=== PATIENT | female | born 1930 | race Caucasian/White ===

== ENCOUNTER 2016-12-05 18:35 | Inpatient (IN) | payer MEDICARE, MEDICAID ==
[2016-12-05 18:35] VITALS: BMI 24.4
[2016-12-05] MEDS ORDERED: Sodium Chloride 0.9% 500 ML IV ONE ×4 (19:23→20:11)
[2016-12-05 19:31] LABS: BASO % 0.4 % (0.0-2.0); EOS # 0.1 K/uL (0.0-0.7); EOS % 1.2 % (0.0-4.0); LYMPH # 1.5 K/uL (1.0-4.3); LYMPH % 22.2 % (20.0-40.0); MEAN CELL VOLUME 88.4 fL (81.0-99.0); MEAN CORPUSCULAR HEMOGLOBIN 28.3 pg (27.0-31.0); MEAN CORPUSCULAR HGB CONC 32.1 g/dL (33.0-37.0); MEAN PLATELET VOLUME 8.9 fL (7.2-11.7); MONO # 0.7 K/uL (0.0-0.8); MONO % 9.5 % (0.0-10.0); RED CELL DISTRIBUTION WIDTH 14.6 % (11.5-14.5)
--- NOTE | 2016-12-05 19:34 | C.PDOC ---
Time Seen by Provider: 12/05/16 19:11 Chief Complaint (Nursing): Abdominal Pain History Per: Patient, Family Onset/Duration Of Symptoms: Days (1) Current Symptoms Are (Timing): Still Present Severity: Moderate Location Of Pain/Discomfort: Epigastric Quality Of Discomfort: Unable To Describe, Burning Associated Symptoms: Nausea, Vomiting Exacerbating Factors: Food Alleviating Factors: None Last Bowel Movement: Today Additional History Per: Prior Records Past Medical History Reviewed: Historical Data, Nursing Documentation, Vital Signs Vital Signs: Last Vital Signs Temp 98.1 F 12/05/16 18:44 Pulse 79 12/05/16 20:31 Resp 18 12/05/16 20:31 BP 106/41 L 12/05/16 20:31 Pulse Ox 95 12/05/16 20:49 - Medical History PMH: Anxiety, Arthritis (L KNEE; L WRIST), Asthma, Back Problems (HX CHRONIC BACK PAIN), CAD, COPD, Diabetes, Fractures (left wrist), Gastritis, HTN, Hypercholesterolemia, Osteoporosis, Rheumatoid Arthritis Surgical History: Coronary Stent - [facility] Procedures APPLICATION OF SPLINT (06/18/14) FLUOROSCOPY OF LEFT HEART USING LOW OSMOLAR CONTRAST (02/05/16) GAIT TRAINING/AMBULAT TREATMENT USING ASSIST EQUIPMENT (11/08/15) INTRODUCE ANTI-INFLAM IN PERIPH NRV, PLEXI, PERC (11/08/15) INTRODUCE REGIONAL ANESTH IN PERIPH NRV, PLEXI, PERC (11/08/15) MEASURE OF CARDIAC SAMPL & PRESSURE, L HEART, PERC APPROACH (02/05/16) NEBULIZER THERAPY (06/16/14) REPAIR LEFT UPPER ARM TENDON, OPEN APPROACH (11/08/15) REPAIR OF HAMMER TOE (07/17/13) REPOSITION LEFT HUMERAL SHAFT WITH INT FIX, OPEN APPROACH (11/08/15) TRANSFUSE NONAUT RED BLOOD CELLS IN PERIPH VEIN, PERC (11/08/15) Family History: States: Unknown Family Hx - Social History Hx Tobacco Use: No Hx Alcohol Use: No Hx Substance Use: No - Immunization History Hx Tetanus Toxoid Vaccination: Yes (3 mos. ago) Hx Influenza Vaccination: No Hx Pneumococcal Vaccination: No Review Of Systems Except As Marked, All Systems Reviewed And Found Negative. Constitutional: Negative for: Fever, Weakness Cardiovascular: Negative for: Chest Pain Respiratory: Negative for: Shortness of Breath Gastrointestinal: Positive for: Nausea, Vomiting, Abdominal Pain. Negative for : Diarrhea, Melena, Hematochezia, Hematemesis Genitourinary: Negative for: Dysuria Musculoskeletal: Positive for: Back Pain (low). Negative for: Neck Pain, Leg Pain Skin: Negative for: Rash Neurological: Negative for: Weakness, Numbness, Seizures, Altered Mental Status Physical Exam - Physical Exam Appears: Non-toxic, No Acute Distress Skin: Normal Color, Warm, Dry, No Rash Head: Atraumatic, Normacephalic Eye(s): bilateral: PERRL, EOMI Neck: Normal ROM, Supple Cardiovascular: Rhythm Regular Respiratory: Normal Breath Sounds, No Accessory Muscle Use Gastrointestinal/Abdominal: Soft, Tenderness (mild epigastric), No Guarding, No Rebound Rectal: Heme Positive (Brown stool) Back: No CVA Tenderness Extremity: Normal ROM, No Pedal Edema, No Calf Tenderness Neurological/Psych: Oriented x3, Normal Motor, Normal Sensation ED Course And Treatment - Laboratory Results Result Diagrams: 12/05/16 19:29 12/05/16 20:52 Lab Interpretation: Abnormal Interpretation Of Abnormal: Elevated BUN/Cr with hyperkalemia. Anemia. UTI. ECG: Interpreted By Me, Viewed By Me ECG Rhythm: Sinus Rhythm, L BBB, Nonspecific Changes ECG Interpretation: No Changes From Prior Rate From EC O2 Sat by Pulse Oximetry: 95 Pulse Ox Interpretation: Normal - Radiology CXR: Interpreted by Me, Viewed By Me CXR Interpretation: Yes: No Acute Disease Progress - Interventions Interventions:: Observation, Intravenous fluid - Medications Administered Oral: Other (Kayexelate.) Intravenous: Antiemetic, Other (PPI) - Data Reviewed Data Reviewed: Lab, Diagnostic imaging, EKG, Old records - Patient Status Patient status: Partially improved - Critical Care Citical Care: Excluding Proc Time Critical Care Time: 45 minutes - Continuity of Care Discussed patient case with:: Patient, Family-HIPPA compliant, ED Nurse, On- call PMD-pt unassigned - Patient Plan Patient Plan: Admission, Telemetry Disposition Discussed With : Damon Kearney Comment: He accepted pt on hospitalist service. Doctor Will See Patient In The: Hospital Counseled Patient/Family Regarding: Studies Performed, Diagnosis - Disposition Disposition: HOSPITALIZED Disposition Time: 21:32 Condition: SERIOUS - Clinical Impression Clinical Impression: Hyperkalemia, UTI (urinary tract infection), Worsening renal function, Anemia
[2016-12-05 19:40] LABS: CHLORIDE 97 mmol/L (98-107); SODIUM 137 mmol/L (132-148)
[2016-12-05 19:42] LABS: GFR AFRICAN-AMERICAN 32
[2016-12-05 19:43] LABS: ALB/GLOB RATIO 1.5 (1.0-2.1); ALKALINE PHOSPHATASE 52 U/L (38-126); ALT/SGPT 13 U/L (9-52); AST/SGOT 26 U/L (14-36); BILIRUBIN,TOTAL 0.4 mg/dL (0.2-1.3); BLOOD UREA NITROGEN 72 mg/dL (7-17); CARBON DIOXIDE 30 mmol/L (22-30); GLUCOSE,RANDOM 192 mg/dL (65-105); POTASSIUM 6.3 mmol/L (3.6-5.2); TOTAL PROTEIN 6.8 g/dL (6.3-8.3)
[2016-12-05 21:10] LABS: CALCIUM 8.1 mg/dl (8.6-10.4)
[2016-12-05 21:11] LABS: RBC URINE < 1 /hpf (0-3); URINE BACTERIA MOD (<OCC); URINE BILIRUBIN NEGATIVE (NEGATIVE); URINE BLOOD NEGATIVE (NEGATIVE); URINE COLOR Yellow (YELLOW); URINE GLUCOSE (UA) NORMAL (Normal); URINE KETONE NEGATIVE (NEGATIVE); URINE LEUKOCYTE ESTERASE 1+ Leu/uL (Negative); URINE PROTEIN NEGATIVE (NEGATIVE); URINE UROBILINOGEN NORMAL mg/dL (0.2-1.0); WBC URINE 38 /hpf (0-5)
[2016-12-05 21:14] LABS: POTASSIUM 6.4 mmol/L (3.6-5.2)
[2016-12-05] MEDS ORDERED: cefTRIAXone IV 1 gm in Dextros 50 ML IVPB ONE ×2 (21:15→22:43)
[2016-12-05] MEDS ORDERED: Dextrose 50% SYRINGE Inj (50 ml) IVP STA (21:16)
[2016-12-05] MEDS ORDERED: (Novolin R) Insulin Human Regular 100 units/ml vial IV STA (21:16)
[2016-12-05] MEDS ORDERED: Sod Polystyrene Sulf 15 gm/60 ml Oral Susp PO STA (21:17)
[2016-12-05] MEDS ORDERED: Calcium Gluconate 4.65 mEq/10 ml Inj IVP STA (21:17)
[2016-12-05] MEDS ORDERED: Calcium Gluconate 4.65 mEq/10 ml Inj ONE (21:25)
[2016-12-05] MEDS ORDERED: Sod Polystyrene Sulf 15 gm/60 ml Oral Susp ONE (21:25)
[2016-12-05] MEDS ORDERED: (Novolin R) Insulin Human Regular 100 units/ml vial ONE (21:25)
[2016-12-05] MEDS ORDERED: Dextrose 50% SYRINGE Inj (50 ml) ONE (21:25)
--- NOTE | 2016-12-05 21:41 | CP.PCM.HP ---
<Hieu Arce - Last Filed: 12/06/16 08:28> History of Present Illness - History of Present Illness History of Present Illness: CC: "abdominal pain with nausea/vomiting x 1 day" HPI: 86yo Female with PMHx abdominal hernia, gastritis, anxiety, asthma, COPD, DM, CAD, HTN - presents c/o abdominal pain since earlier this morning with two episodes of associated nausea and vomiting. Due to the pain, she has not eaten in over 1 day. She admits the abdominal pain came on suddenly, has been constant and dull throughout the day, and is rated at 5/10. She attributes this to her gastritis and history of constipation. She describes the vomit as watery/ brown. Patient admits that she did not change her diet or her routine. She has been having daily hard bowel movements, attributed to her history of constipation, and denies blood in the stool or toilet. Patient also complains of chronic musculoskeletal issues, most recently lower back pain for the past week. Patient is a poor historian, and could not give clear answers to questions despite use of translation (patient is also hard of hearing). Denies f /c, weakness, chest pain, diarrhea, dysuria. Note: per family, she missed her [address] Cao for Urinary retention. Daughter Kira at . Patient previously admitted 10/15/16 for AMS. Urine did not show signs of infection. She was able to urinate but was retaining. On two different times bladder scan showed over 500cc of urine so lema cath was placed. She was dischraged with the lema and was to follow-up in Dr. Navneet Cao's [place] office. PMD: Dr. Gomez PMH: anxiety, asthma, COPD, DM, CAD, HTN, gastritis Medications: patient is uncertain of medications. Per previous record: ASA 81 mg po daily, Plavix 75 mg po daily, Crestor 5 mg po daily, Pepcid 20 mg po daily , Advair FHx: mother- asthma, heart disease, at age 92 PSHx: fibroma removal abdominal surgery. Cardiac cath 02/2016 SHx: smoked 1ppd x 50 yrs, quit 20 yrs ago; social drinker in the past, denies current use. denies illicit drug use. Lives alone. Has homemaker. Present on Admission - Present on Admission Any Indicators Present on Admission: No Review of Systems - Hematologic/Lymphatic Additional comments: - Constitutional Constitutional: absent: Chills, Fever - EENT Ears: Decreased Hearing (hears better from R ear) - Cardiovascular Cardiovascular: absent: Chest Pain, Dyspnea - Respiratory Respiratory: absent: Cough, Chest Congestion. - Gastrointestinal Gastrointestinal: Abdominal Pain, Constipation, Nausea, Vomiting Additional comments: -hernia - Genitourinary Genitourinary: Urinary Incontinence (history of incontinence, no current complaints). absent: Dysuria, Hematuria, Urinary Frequency - Musculoskeletal Musculoskeletal: Arthralgias, Muscle Cramps - Integumentary Integumentary: absent: Changing Lesions, New Lesions - Neurological Neurological: absent: Dizziness - Psychiatric Psychiatric: absent: depression, anxiety Past Patient History - Infectious Disease Hx of Infectious Diseases: None - Tetanus Immunizations Tetanus Immunization: Unknown - Past Medical History & Family History Past Medical History?: Yes - Past Social History Smoking Status: Never Smoked - CARDIAC Hx Hypercholesterolemia: Yes Hx Hypertension: Yes - PULMONARY Hx Asthma: Yes Hx Chronic Obstructive Pulmonary Disease (COPD): Yes - NEUROLOGICAL Hx Seizures: No - HEENT Hx HEENT Problems: Yes Hx Cataracts: Yes (right eye) Hx Glaucoma: Yes (left eye) - RENAL Hx Chronic Kidney Disease: No - HEMATOLOGICAL/ONCOLOGICAL Hx Human Immunodeficiency Virus (HIV): No - INTEGUMENTARY Hx Dermatological Problems: No - MUSCULOSKELETAL/RHEUMATOLOGICAL Hx Arthritis: Yes (L KNEE; L WRIST) Hx Fractures: Yes (left wrist) Hx Osteoporosis: Yes Hx Rheumatoid Arthritis: Yes - GASTROINTESTINAL Hx Gastritis: Yes - GENITOURINARY/GYNECOLOGICAL Hx Sexually Transmitted Disorders: No - PSYCHIATRIC Hx Anxiety: Yes Hx Substance Use: No - SURGICAL HISTORY Hx Coronary Stent: Yes - ANESTHESIA Hx Anesthesia: Yes Hx Anesthesia Reactions: No Hx Malignant Hyperthermia: No Meds Allergies/Adverse Reactions: Allergies Allergy/AdvReac Type Severity Reaction Status Date / Time No Known Allergies Allergy Verified 12/05/16 18:41 Physical Exam - Additional Findings Additional findings: - Constitutional Appears: Non-toxic, No Acute Distress - Head Exam Head Exam: ATRAUMATIC, NORMAL INSPECTION - Eye Exam Eye Exam: EOMI, Normal appearance, PERRL Pupil Exam: NORMAL ACCOMODATION - ENT Exam ENT Exam: Mucous Membranes Moist - Neck Exam Neck Exam: Normal Inspection - Respiratory Exam Respiratory Exam: Clear to Ausculation Bilateral, NORMAL BREATHING PATTERN. absent: Accessory Muscle Use, Respiratory Distress - Cardiovascular Exam Cardiovascular Exam: REGULAR RHYTHM, +S1, +S2 - GI/Abdominal Exam GI & Abdominal Exam: Soft, Normal Bowel Sounds, Distended (mild), Tenderness ( mild, at site of R abd hernia) absent: Firm, Guarding -no supra-pubic tenderness - Extremities Exam Extremities Exam: Normal Inspection. absent: Calf Tenderness, Pedal Edema - Back Exam Back Exam: NORMAL INSPECTION. absent: CVA tenderness (L), CVA tenderness (R), paraspinal tenderness - Neurological Exam Neurological Exam: Alert, Awake - Psychiatric Exam Psychiatric exam: Normal Affect, Normal Mood - Skin Skin Exam: Dry, Intact, Normal Color, Warm Results - Vital Signs Recent Vital Signs: Last Vital Signs Temp 98.1 F 12/05/16 18:44 Pulse 79 12/05/16 20:31 Resp 18 12/05/16 20:31 BP 106/41 L 12/05/16 20:31 Pulse Ox 95 12/05/16 21:33 - Labs Result Diagrams: 12/06/16 07:08 12/06/16 07:08 Labs: Laboratory Results - last 24 hr 12/05/16 12/05/16 12/05/16 19:29 19:29 19:56 WBC 7.0 RBC 2.60 L Hgb 7.4 L D Hct 23.0 L MCV 88.4 MCH 28.3 MCHC 32.1 L RDW 14.6 H Plt Count 201 MPV 8.9 Neut % (Auto) 66.7 Lymph % (Auto) 22.2 [place] % (Auto) 9.5 Eos % (Auto) 1.2 Baso % (Auto) 0.4 Neut # 4.6 Lymph # 1.5 [place] # 0.7 Eos # 0.1 Baso # 0.0 Sodium 137 Potassium 6.3 H* D Chloride 97 L Carbon Dioxide 30 Anion Gap 16 BUN 72 H Creatinine 1.8 H Est GFR ( Amer) 32 Est GFR (Non-Af Amer) 27 Random Glucose 192 H Calcium 9.0 Total Bilirubin 0.4 AST 26 ALT 13 Alkaline Phosphatase 52 Troponin I < 0.0120 Total Protein 6.8 Albumin 4.1 Globulin 2.7 Albumin/Globulin Ratio 1.5 Lipase 51 Urine Color Urine Clarity Urine pH Ur Specific [place] Urine Protein Urine Glucose (UA) Urine Ketones Urine Blood Urine Nitrate Urine Bilirubin Urine Urobilinogen Ur Leukocyte Esterase Urine WBC (Auto) Urine RBC (Auto) Ur Squamous Epith Cells Urine Bacteria Stool Occult Blood Positive H 12/05/16 12/05/16 20:52 21:14 WBC RBC Hgb Hct MCV MCH MCHC RDW Plt Count MPV Neut % (Auto) Lymph % (Auto) [place] % (Auto) Eos % (Auto) Baso % (Auto) Neut # Lymph # [place] # Eos # Baso # Sodium 134 Potassium 6.4 H* Chloride 102 Carbon Dioxide 25 Anion Gap 13 BUN 65 H Creatinine 1.8 H Est GFR ( Amer) 32 Est GFR (Non-Af Amer) 27 Random Glucose 200 H Calcium 8.1 L Total Bilirubin AST ALT Alkaline Phosphatase Troponin I Total Protein Albumin Globulin Albumin/Globulin Ratio Lipase Urine Color Yellow Urine Clarity Hazy Urine pH 5.0 Ur Specific [place] 1.008 Urine Protein Negative Urine Glucose (UA) Normal Urine Ketones Negative Urine Blood Negative Urine Nitrate Negative Urine Bilirubin Negative Urine Urobilinogen Normal Ur Leukocyte Esterase 1+ H Urine WBC (Auto) 38 H Urine RBC (Auto) < 1 Ur Squamous Epith Cells < 1 Urine Bacteria Mod H Stool Occult Blood Assessment & Plan - Assessment and Plan (Free Text) Assessment: Anemia -Hgb 7.4; Hct 23 -Stool occult (+) in patient with Hx of constipation. -Type and cross 2units -Transfuse 1 unit PRBC at 8am -GI Consult, Dr. Walker, f/u recs -f/u Fe, TIBC, %sat, ferritin, B12, folate Dehydration -BUN/CR 65/1.8 (baseline 1.0) -previously seen by Urology, Dr. Navneet Cao. Was to f/u with him after 10/06/15 admission. Never followed up per daughter. -NS 0.9 at 75cc/hr Acute Kidney Injury -likely secondary to dehydration -BUN/CR 65/1.8 (baseline 1.0) -NS at 80 cc/hour -Monitor Hyperkalemia -K 6.4 on admission -pt received calcium gluconate, kayexelate, Novolin R in ED. Abdominal Distention - f/u CT Abd/Pelv PO contrast. - also observe CT for urinary retention Asymptomatic UTI -UA(+) Leuk est 1+, WBC 38. -f/u Urine culture -f/u CT abdomen/pelvis for signs of urinary retention. -Currently hold antibiotics. -patient with history of urinary retention -> F/u Bladder Scan / post void residual. Diabetes Mellitus -Glucose 200 on admission -prior: hemoglobin a1c - 8.4 -Insulin Sliding Scale -Accuchecks CAD -HOLD ASA, Plavix, due to anemia/bleed. -Echo 2016 - normal -prior FLP 09/02/16: Cholest 111; LDL 53; HDL 49; Triglyc 39. -Resume Crestor 5mg PO HS Hx HTN -BP 106/41 on admission -Hold home meds. -Monitor Prophylaxis -SCDs -Hold anticoagulation -Pepcid held -f/u PT/OT - Date & Time Date: 12/05/16 Time: 21:35 <Damon Kearney P - Last Filed: 12/11/16 21:54> Results - Vital Signs Recent Vital Signs: Last Vital Signs Temp 98 F 12/11/16 16:00 Pulse 64 12/11/16 16:00 Resp 18 12/11/16 16:00 BP 154/67 H 12/11/16 16:00 Pulse Ox 96 12/11/16 16:00 - Labs Result Diagrams: 12/11/16 07:12 12/11/16 07:12 Labs: Laboratory Results - last 24 hr 12/10/16 12/11/16 12/11/16 21:39 06:38 07:12 WBC 6.3 RBC 3.46 L Hgb 10.0 L Hct 30.4 L MCV 87.9 MCH 28.8 MCHC 32.7 L RDW 14.1 Plt Count 187 MPV 8.9 Neut % (Auto) 49.4 L Lymph % (Auto) 32.0 [place] % (Auto) 11.8 H Eos % (Auto) 5.6 H Baso % (Auto) 1.2 Neut # 3.1 Lymph # 2.0 [place] # 0.7 Eos # 0.4 Baso # 0.1 Sodium Potassium Chloride Carbon Dioxide Anion Gap BUN Creatinine Est GFR ( Amer) Est GFR (Non-Af Amer) POC Glucose (mg/dL) 228 H 191 H Random Glucose Calcium Phosphorus Magnesium Total Bilirubin AST ALT Alkaline Phosphatase Total Protein Albumin Globulin Albumin/Globulin Ratio 12/11/16 12/11/16 12/11/16 07:12 11:26 17:01 WBC RBC Hgb Hct MCV MCH MCHC RDW Plt Count MPV Neut % (Auto) Lymph % (Auto) [place] % (Auto) Eos % (Auto) Baso % (Auto) Neut # Lymph # [place] # Eos # Baso # Sodium 140 Potassium 4.4 Chloride 103 Carbon Dioxide 25 Anion Gap 16 BUN 20 H Creatinine 0.8 Est GFR ( Amer) > 60 Est GFR (Non-Af Amer) > 60 POC Glucose (mg/dL) 224 H 161 H Random Glucose 158 H Calcium 8.4 L Phosphorus 3.0 Magnesium 1.7 Total Bilirubin 0.5 AST 22 ALT 22 Alkaline Phosphatase 49 Total Protein 6.7 Albumin 3.9 Globulin 2.8 Albumin/Globulin Ratio 1.4 12/11/16 21:24 WBC RBC Hgb Hct MCV MCH MCHC RDW Plt Count MPV Neut % (Auto) Lymph % (Auto) [place] % (Auto) Eos % (Auto) Baso % (Auto) Neut # Lymph # [place] # Eos # Baso # Sodium Potassium Chloride Carbon Dioxide Anion Gap BUN Creatinine Est GFR ( Amer) Est GFR (Non-Af Amer) POC Glucose (mg/dL) 170 H Random Glucose Calcium Phosphorus Magnesium Total Bilirubin AST ALT Alkaline Phosphatase Total Protein Albumin Globulin Albumin/Globulin Ratio Attending/Attestation - Attestation I have personally seen and examined this patient.: Yes I have fully participated in the care of the patient.: Yes I have reviewed all pertinent clinical information: Yes
[2016-12-05] MEDS ORDERED: Iohexol 240 (50 ml) ONE (22:43)
[2016-12-05] MEDS ORDERED: Iohexol 240 (50 ml) PO ONE (22:45)
[2016-12-06] MEDS: Sodium Chloride 0.9% 1,000 ML IV SCH (00:27)
[2016-12-06 07:20] LABS: BASO % 0.6 % (0.0-2.0); EOS # 0.3 K/uL (0.0-0.7); EOS % 4.9 % (0.0-4.0); HEMATOCRIT 20.8 % (34.0-47.0); LYMPH # 1.8 K/uL (1.0-4.3); LYMPH % 34.2 % (20.0-40.0); MEAN CORPUSCULAR HEMOGLOBIN 28.9 pg (27.0-31.0); MEAN CORPUSCULAR HGB CONC 32.5 g/dL (33.0-37.0); MEAN PLATELET VOLUME 9.3 fL (7.2-11.7); MONO # 0.7 K/uL (0.0-0.8); RED CELL DISTRIBUTION WIDTH 14.5 % (11.5-14.5); WHITE BLOOD COUNT 5.3 K/uL (4.8-10.8)
[2016-12-06 07:35] LABS: POTASSIUM 5.4 mmol/L (3.6-5.2)
[2016-12-06 07:36] LABS: IRON 30 ug/dL (37-170)
[2016-12-06 07:37] LABS: ALB/GLOB RATIO 1.4 (1.0-2.1); BILIRUBIN,TOTAL 0.4 mg/dL (0.2-1.3); PHOSPHOROUS 4.6 mg/dL (2.5-4.5)
[2016-12-06 07:38] LABS: MAGNESIUM 2.5 mg/dL (1.6-2.3)
[2016-12-06] MEDS: (Novolog) Insulin Aspart, Recombinant 100 u/ml 10 ml vial SC SCH ×3 (08:09→21:27)
--- NOTE | 2016-12-06 08:43 | RAD ---
HISTORY: Epigastric pain COMPARISON: 10/17/2016. FINDINGS: LUNGS: The lungs are well inflated and clear. PLEURA: No significant pleural effusion identified, no pneumothorax apparent. CARDIOVASCULAR: There is mild cardiomegaly. OSSEOUS STRUCTURES: No significant abnormalities. VISUALIZED UPPER ABDOMEN: Normal. OTHER FINDINGS: None. IMPRESSION: No active pulmonary disease. Mild cardiomegaly.
[2016-12-06] MEDS ORDERED: Iohexol 240 (50 ml) PO ONE (09:45)
--- NOTE | 2016-12-06 09:57 | CP.PCM.PN ---
Subjective - Date & Time of Evaluation Date of Evaluation: 12/06/16 Time of Evaluation: 09:35 - Subjective Subjective: Hospitalist Progress Note (Patient was seen and examined at 9:35 AM 12/06/16 [id number] ) 86 year old female who was admitted for evaluation of abdominal pain associated with nausea/vomiting. She was found to be anemia and in acute renal failure and admitted for further evaluation and treatment. ROS: NO more episodes of nausea/vomiting since she has been here NO bowel movement since yesterday (which was nonbloody/nonblack) Urinating without difficulty this morning: no burning/pain B/L LQ Abdominal Fullness and Epigastric Discomfort that comes and goes NO Other complaints upon FULL ROS EXAM: HEENT: NCA, EOMI, PERRLA, NO cervical/submandibular/supraclavicular lymphadenopathy, NO pharyngeal erythema/exudate, Oral Mucosa and Nasal Turbinates are moist, NO thyromegaly GI: Abdominal Distention, Soft, Liver and Spleen could not be adequately palpated, NO guarding/rebound tenderness, NO epigastric pain upon palpation, Increased Pressure in the B/L LQ, Midline surgical scar with palpable lump inferior aspect and to the right Cardio: Systolic Murmur Right Second Intercostal Space Respiratory: CTA B/L, NO R/R/W Ext: NO edema, Pulses are strong and equal Neuro: CN II through XII are grossly intact Assessment and Plan: 1). Anemia Likely Secondary to GI Bleed Stool Occult was POSITIVE F/U recommendations by GI Dr. Walker F/U Iron Studies At the time of my exam the PRBC unit was still pending transfusion and I spoke with Nurse Curtis who will be starting it after the performance of the CT Abdomen /Pelvis which is also still pending 2). Acute Renal Failure Could this be secondary to dehydration (patient was not eating/drinking much 1 day prior to presentation secondary to nausea/vomiting) ? Patient had normal BUN/Cr in October 2016 BUN/Cr 72/1.8 on admission NS at 80 ml/hr HOLD Lasix F/U CT Abdomen/Pelvis F/U Consult Nephrology Dr. Ford 3). Hyperkalemia K was 6.4 on admission She was given Calcium Gluconate, Kayexalate, Novolin R in the ER K is now 5.4 and will await patient to have bowel movement 4). Abdominal Distention F/U CT Abdomen/Pelvis 5). UTI She has a history of Bladder Rentention but is urinating fine on her own presently. Please note she was [facility] on on last admission 10/15/16 with Brown Catheter secondary to high bladder urine residuals. UA showed LE + and WBC + F/U Urine Culture Flomax 0.4 mg PO 1x/day 6). DM 1 HgB A1C 8.1 on prior admission 10/15/16 RISS Accuchecks 7). Hx CAD HOLD ASA and Plavix due to the Anemia Echo 2016 was essentially normal Crestor 5 mg PO QHS 8). Hx HTN Blood Pressure eis 106/41 Holding Hydralazine, Norvasc, Valsartan, and Lasix 9). Prophylactic Measure SCDs: NO anticoagulation PT/OT Atilio Jean D.O. Objective - Vital Signs/Intake and Output Vital Signs (last 24 hours): Temp Pulse Resp BP Pulse Ox 97.8 F 65 20 126/49 L 95 12/05/16 23:15 12/06/16 04:26 12/05/16 23:15 12/05/16 23:15 12/05/16 23:15 Intake and Output: 12/06/16 12/06/16 06:59 18:59 Intake Total 725 Output Total 250 Balance 475 - Medications Medications: Current Medications Sodium Chloride (Sodium Chloride 0.9%) 1,000 mls @ 75 mls/hr IV .[id number] [facility] Last Admin: 12/06/16 00:27 Dose: 75 mls/hr Insulin Aspart (Novolog) 0 unit SC ACHS [facility] PRN Reason: Protocol Last Admin: 12/06/16 08:09 Dose: 1 unit Rosuvastatin Calcium (Crestor) 5 mg PO HS [facility]AN - Labs Labs: 12/06/16 07:08 12/06/16 07:08
--- NOTE | 2016-12-06 10:20 | CP.PCM.CON ---
History of Present Illness - History of Present Illness History of Present Illness: pt seen and examined, full consult to follow#[id number] 1. marleni, picture c/w pre renal 2. hyperkalemia 3. anemia r/o GI bleed check urine lytes, osm, cr check fe,tibc, ferritin c/w ivf agree with kayexalate f/w with GI to r/o UGI bleed consider transfusion as needed Past Patient History - Infectious Disease Hx of Infectious Diseases: None - Tetanus Immunizations Tetanus Immunization: Unknown - Past Medical History & Family History Past Medical History?: Yes - Past Social History Smoking Status: Never Smoked - CARDIAC Hx Hypercholesterolemia: Yes Hx Hypertension: Yes - PULMONARY Hx Asthma: Yes Hx Chronic Obstructive Pulmonary Disease (COPD): Yes - NEUROLOGICAL Hx Seizures: No - HEENT Hx HEENT Problems: Yes Hx Cataracts: Yes (right eye) Hx Glaucoma: Yes (left eye) - RENAL Hx Chronic Kidney Disease: No - HEMATOLOGICAL/ONCOLOGICAL Hx Human Immunodeficiency Virus (HIV): No - INTEGUMENTARY Hx Dermatological Problems: No - MUSCULOSKELETAL/RHEUMATOLOGICAL Hx Arthritis: Yes (L KNEE; L WRIST) Hx Fractures: Yes (left wrist) Hx Osteoporosis: Yes Hx Rheumatoid Arthritis: Yes - GASTROINTESTINAL Hx Gastritis: Yes - GENITOURINARY/GYNECOLOGICAL Hx Sexually Transmitted Disorders: No - PSYCHIATRIC Hx Anxiety: Yes Hx Substance Use: No - SURGICAL HISTORY Hx Coronary Stent: Yes - ANESTHESIA Hx Anesthesia: Yes Hx Anesthesia Reactions: No Hx Malignant Hyperthermia: No Meds Allergies/Adverse Reactions: Allergies Allergy/AdvReac Type Severity Reaction Status Date / Time No Known Allergies Allergy Verified 12/05/16 18:41 - Medications Medications: Current Medications Sodium Chloride (Sodium Chloride 0.9%) 1,000 mls @ 75 mls/hr IV .[id number] [facility] Last Admin: 12/06/16 00:27 Dose: 75 mls/hr Insulin Aspart (Novolog) 0 unit SC ACHS [facility] PRN Reason: Protocol Last Admin: 12/06/16 08:09 Dose: 1 unit Rosuvastatin Calcium (Crestor) 5 mg PO HS [facility] Results - Vital Signs Recent Vital Signs: Last Vital Signs Temp 97.8 F 12/05/16 23:15 Pulse 65 12/06/16 04:26 Resp 20 12/05/16 23:15 BP 126/49 L 12/05/16 23:15 Pulse Ox 95 12/05/16 23:15 - Labs Result Diagrams: 12/06/16 07:08 12/06/16 07:08 Labs: Laboratory Results - last 24 hr 12/06/16 12/06/16 12/06/16 06:28 07:08 07:08 WBC 5.3 RBC 2.34 L Hgb 6.8 L Hct 20.8 L MCV 89.0 MCH 28.9 MCHC 32.5 L RDW 14.5 Plt Count 178 MPV 9.3 Neut % (Auto) 46.3 L Lymph % (Auto) 34.2 [place] % (Auto) 14.0 H Eos % (Auto) 4.9 H Baso % (Auto) 0.6 Neut # 2.4 Lymph # 1.8 [place] # 0.7 Eos # 0.3 Baso # 0.0 Sodium 138 Potassium 5.4 H Chloride 103 Carbon Dioxide 27 Anion Gap 13 BUN 58 H Creatinine 1.7 H Est GFR ( Amer) 34 Est GFR (Non-Af Amer) 28 POC Glucose (mg/dL) 169 H Random Glucose 146 H Calcium 8.0 L Phosphorus 4.6 H Magnesium 2.5 H Iron TIBC % Saturation Ferritin 9.0 Total Bilirubin 0.4 AST 27 ALT 21 Alkaline Phosphatase 44 Total Protein 6.0 L Albumin 3.4 L Globulin 2.5 Albumin/Globulin Ratio 1.4 12/06/16 07:08 WBC RBC Hgb Hct MCV MCH MCHC RDW Plt Count MPV Neut % (Auto) Lymph % (Auto) [place] % (Auto) Eos % (Auto) Baso % (Auto) Neut # Lymph # [place] # Eos # Baso # Sodium Potassium Chloride Carbon Dioxide Anion Gap BUN Creatinine Est GFR ( Amer) Est GFR (Non-Af Amer) POC Glucose (mg/dL) Random Glucose Calcium Phosphorus Magnesium Iron 30 L TIBC 328 % Saturation 9 L Ferritin Total Bilirubin AST ALT Alkaline Phosphatase Total Protein Albumin Globulin Albumin/Globulin Ratio
--- NOTE | 2016-12-06 11:08 | CARD ---
APPROVED REPORT EKG Measurement Heart [id number] <Conclusion> Sinus rhythm with premature atrial complexes Left bundle branch block Abnormal ECG
--- NOTE | 2016-12-06 13:30 | CT ---
PROCEDURE: CT Abdomen and Pelvis with contrast HISTORY: ABDOMINAL DISTENTION COMPARISON: Comparison is made to the previous study dated 11/16/2016 TECHNIQUE: Axial and reformatted coronal and sagittal CT images of the abdomen and pelvis were obtained after oral contrast administration. No IV contrast was given Radiation dose: Total exam DLP = 670.08 mGy-cm. This CT exam was performed using one or more of the following dose reduction techniques: Automated exposure control, adjustment of the mA and/or kV according to patient size, and/or use of iterative reconstruction technique. FINDINGS: LOWER THORAX: Emphysematous changes are seen at the lung bases. LIVER: No significant interval change since the previous exam. GALLBLADDER AND BILE DUCTS: Abscess post cholecystectomy. PANCREAS: No significant interval change since the previous study. Small size pancreas. SPLEEN: Unremarkable. ADRENALS: Unremarkable. No mass. KIDNEYS AND URETERS: Again seen cystic lesions more prominent in the left kidney. There is complex cyst versus less likely small mass protruding from the midpole of the left kidney measures 19 millimeter. VASCULATURE: Unremarkable. No aortic aneurysm. BOWEL: Unremarkable. No obstruction. No gross mural thickening. Mild constipation is noted. Colonic diverticulosis are seen without evidence of diverticulitis. APPENDIX: Normal appendix. PERITONEUM: Unremarkable. No free fluid. No free air. LYMPH NODES: Unremarkable. No enlarged lymph nodes. BLADDER: Unremarkable. REPRODUCTIVE: No significant interval change in the pelvis since the previous exam. BONES: No acute fracture. OTHER FINDINGS: Again seen is small fat containing midline ventral hernia at the lower anterior abdominal wall. IMPRESSION: No evidence of bowel obstruction. Complex cyst versus less likely mass partially exophytic from the left kidney measures 1.9 centimeter. Further assessment by ultrasound is suggested. Otherwise no significant interval change when compared to the previous exam dated 11/16/2016.
--- NOTE | 2016-12-06 13:39 | CP.PCM.PN ---
Subjective - Date & Time of Evaluation Date of Evaluation: 12/06/16 Time of Evaluation: 07:10 Objective - Vital Signs/Intake and Output Vital Signs (last 24 hours): Temp Pulse Resp BP Pulse Ox 97.8 F 65 20 126/49 L 95 12/05/16 23:15 12/06/16 04:26 12/05/16 23:15 12/05/16 23:15 12/05/16 23:15 Intake and Output: 12/06/16 12/06/16 06:59 18:59 Intake Total 725 Output Total 250 Balance 475 - Medications Medications: Current Medications Sodium Chloride (Sodium Chloride 0.9%) 1,000 mls @ 75 mls/hr IV .[id number] [facility] Last Admin: 12/06/16 00:27 Dose: 75 mls/hr Insulin Aspart (Novolog) 0 unit SC ACHS [facility] PRN Reason: Protocol Last Admin: 12/06/16 08:09 Dose: 1 unit Rosuvastatin Calcium (Crestor) 5 mg PO HS [facility] - Labs Labs: 12/06/16 07:08 12/06/16 07:08
[2016-12-06 14:08] LABS: IRON 39 ug/dL (37-170)
--- NOTE | 2016-12-06 23:44 | CON ---
DATE: 12/06/2016 RENAL CONSULTATION The patient is located in room 664, bed B. REQUESTING PHYSICIAN: Dr. Damon Kearney. REASON FOR RENAL CONSULTATION: Acute renal failure, hyperkalemia for further evaluation. HISTORY OF PRESENT ILLNESS: The patient is an 86-year-old very pleasant elderly female with a past medical history significant for hypertension , diabetes, coronary artery disease, chronic obstructive pulmonary disease, asthma, anxiety, gastritis and abdominal hernia, who presented with chief complaints of abdominal pain associated with nausea, vomiting x 1 day. The patient presented with abdominal pains since earlier on the day of admission yesterday with 2 episodes of nausea, vomiting, decreased p.o. intake for 1 day, and as per the patient, the pain in the abdomen sudden onset, constant throughout the day and rated on a scale of 1-10, 5/10. The patient denies any diarrhea. The patient does complain of constipation and occasional blood in the stool when she has difficulty in moving her bowels. Denies any dysuria or frequency. Denies any swelling of the legs. Denies headache. The patient has complaints of dizziness. PAST MEDICAL HISTORY: Significant for: Hypertension, diabetes, CAD, COPD, asthma, anxiety, and gastritis. PAST SURGICAL HISTORY: Significant for surgery for fibroma. ALLERGIES: No known drug allergies. SOCIAL HISTORY: The patient was an ex-smoker, quit a long time ago, and ex- alcohol use a long time ago. No drug abuse. PERSONAL HISTORY: She is a and she has 11 children and 3 . CURRENT MEDICATIONS: Include as follows: Crestor 5 mg at bedtime, NovoLog for sliding scale, IV fluids normal saline at 75 mL per hour. REVIEW OF SYSTEMS: Significant for dizziness, nausea, vomiting and abdominal pain and significant for anemia. All other review of systems are reviewed and are negative. PHYSICAL EXAMINATION: VITAL SIGNS: As follows: Blood pressure 126/49, pulse 81, respirations 20, temperature 97.8, saturation 95%, height 5 feet and weight is 130 pounds. GENERAL: The patient is an 86-year-old elderly female, thin built, not in acute distress. HEENT: Pupils normal, reactive to light and accommodation. Conjunctivae pale. Sclerae anicteric. Tongue is moist. NECK: Trachea midline. LUNGS: Symmetric on both sides. Bilateral breath sounds present. Clear on auscultation. CARDIOVASCULAR: [place] in the fifth intercostal space half inch middle to midclavicular line. S1 and S2 audible. No murmur or gallop. ABDOMEN: Normal in appearance, soft, tympanic. No guarding, no rigidity. No hepatosplenomegaly. CENTRAL NERVOUS SYSTEM: The patient is alert, awake, oriented x 3, nonfocal on examination. Cranial nerves II through XII grossly intact. Sensory and motor system is grossly within normal limits. EXTREMITIES: No cyanosis, no clubbing, no edema. The patient has buckle hernia present, small. LABORATORY DATA: Include as follows: As of 12/06/2016, WBC 5.3, hemoglobin 6.8 , hematocrit is 20.8, platelets 178. Sodium 138, potassium 5.4, chloride 103, CO2 of 27, BUN of 58, creatinine 1.7, glucose 146, calcium 8.0, phosphorus 4.6, magnesium 2.5. Iron is 30, TIBC 328 and saturation is 9, and ferritin is 9, total bili is 0.4, AST 27, ALT 21, alkaline phosphatase 44, total protein is 6.0 , and albumin is 3.4 and repeat iron is 39, TIBC 325 and saturation is 12%. Urine culture is positive for gram-negative rods. Other reports: Ultrasound of the kidneys, report is pending. Chest x-ray as of 12/05/2016: No active pulmonary disease. CT of the abdomen and pelvis as of 12/05/2016: No evidence of bowel obstruction, complex cyst versus less likely mass, partially exophytic , left kidney measures 1.9 cm, further assessment by ultrasound is suggested, otherwise no significant interval change when compared to the previous exam dated 11/16/2016. Other reports as of 12/05/2016: H and H 7.4/23 and BUN 137, potassium 6.3, chloride 97, CO2 of 30, BUN 72, creatinine 1.8, and glucose 192, calcium is 9. Other reports from the previous admissions revealed the chart from 10/15/2016, as of 10/18/2016, WBC 7.4, hemoglobin 10.9, hematocrit is 31.9 and platelets 145. BUN and creatinine 20 and creatinine 1.0. SUMMARY: The patient is an 86-year-old elderly female with a history of longstanding hypertension, diabetes, CAD, COPD, asthma, anxiety, gastritis and buckle hernia, was admitted with chief complaints of feeling nausea, vomiting and abdominal pain for 1 day and increased BUN and creatinine and increased potassium and decreasing H and H. 1. Renal failure. More picture consistent with prerenal azotemia. 2. Hyperkalemia, secondary to renal failure and rule out gastrointestinal bleed in the setting of decreased H and H since admission. 3. Anemia, rule out gastrointestinal bleed and also iron deficiency anemia. PLAN: Continue IV fluids and check stool for occult blood and consider to transfuse the patient to keep hemoglobin more than 8 and also consider GI evaluation for possible upper endoscopy and also check CA 19-9 and CEA and also protein and CA-125 also. Also IV Ferrlecit 125 mg daily. Repeat CBC, BMP in the a.m. We will follow with you. Thank you for allowing me to participate in your patient's care. Howie Ford MD cc: [id number] TT: 12/06/2016 23:43:58 Confirmation # [id number] Dictation # [id number] sascha PANDEY
[2016-12-07] MEDS: Sodium Chloride 0.9% 1,000 ML IV SCH ×2 (02:10→09:15)
[2016-12-07 06:23] LABS: BASO # 0.1 K/uL (0.0-0.2); BASO % 0.9 % (0.0-2.0); EOS # 0.3 K/uL (0.0-0.7); EOS % 4.5 % (0.0-4.0); HEMATOCRIT 28.3 % (34.0-47.0); LYMPH # 1.7 K/uL (1.0-4.3); LYMPH % 27.1 % (20.0-40.0); MEAN CORPUSCULAR HEMOGLOBIN 28.5 pg (27.0-31.0); MEAN CORPUSCULAR HGB CONC 32.3 g/dL (33.0-37.0); MEAN PLATELET VOLUME 9.2 fL (7.2-11.7); MONO # 0.7 K/uL (0.0-0.8); MONO % 11.8 % (0.0-10.0); RED CELL DISTRIBUTION WIDTH 14.4 % (11.5-14.5); WHITE BLOOD COUNT 6.3 K/uL (4.8-10.8)
[2016-12-07 06:40] LABS: POTASSIUM 4.9 mmol/L (3.6-5.2)
[2016-12-07 06:42] LABS: BILIRUBIN,TOTAL 0.6 mg/dL (0.2-1.3)
[2016-12-07 06:43] LABS: ALB/GLOB RATIO 1.4 (1.0-2.1); CALCIUM 8.4 mg/dl (8.6-10.4); PHOSPHOROUS 3.9 mg/dL (2.5-4.5); TOTAL PROTEIN 6.7 g/dL (6.3-8.3)
[2016-12-07] MEDS ORDERED: cefTRIAXone IV 1 gm in Dextros 50 ML IVPB ONE (06:43)
[2016-12-07 06:44] LABS: MAGNESIUM 2.1 mg/dL (1.6-2.3)
[2016-12-07 07:43] LABS: FOLATE > 20.0 ng/mL
[2016-12-07 08:30] LABS: CREATININE, RANDOM URINE 21.5 mg/dL
[2016-12-07] MEDS: (Novolog) Insulin Aspart, Recombinant 100 u/ml 10 ml vial SC SCH ×5 (08:50→22:04)
[2016-12-07] MEDS: cefTRIAXone IV 1 gm in Dextros 50 ML IVPB SCH (08:51)
[2016-12-07 09:47] LABS: CHLORIDE URINE 71 mmol/L (32-290)
[2016-12-07] MEDS: Ferric Sodium Gluconat Complex 62.5 mg/5 ml Vial IVPB SCH (10:00)
[2016-12-07] MEDS ORDERED: cefTRIAXone IV 1 gm in Dextros 50 ML IVPB SCH (10:00)
--- NOTE | 2016-12-07 11:17 | CP.PCM.PN ---
Subjective - Date & Time of Evaluation Date of Evaluation: 12/07/16 Time of Evaluation: 11:17 - Subjective Subjective: pt seen and examined, follow up consult is dictated #[id number] Objective - Vital Signs/Intake and Output Vital Signs (last 24 hours): Temp Pulse Resp BP Pulse Ox 98.7 F 67 20 133/72 100 12/07/16 08:22 12/07/16 08:22 12/07/16 08:22 12/07/16 08:22 12/07/16 08:22 Intake and Output: 12/07/16 12/07/16 06:59 18:59 Intake Total 240 Output Total 725 Balance -485 - Medications Medications: Current Medications Acetaminophen (Tylenol 325mg Tab) 650 mg PO Q6 PRN PRN Reason: Pain, moderate (4-7) Last Admin: 12/07/16 07:56 Dose: 650 mg Ferric Sodium Gluconate Complex (Ferrlecit) 125 mg IVPB DAILY [facility] Stop: 12/15/16 10:01 Last Admin: 12/07/16 10:00 Dose: 125 mg Ceftriaxone Sodium (Rocephin Iv 1 Gm Duplex) 50 mls @ 100 mls/hr IVPB Q24H [facility] Last Admin: 12/07/16 08:51 Dose: 100 mls/hr Sodium Chloride (Sodium Chloride 0.9%) 1,000 mls @ 75 mls/hr IV .[id number] [facility] Insulin Aspart (Novolog) 0 unit SC ACHS [facility] PRN Reason: Protocol Last Admin: 12/07/16 09:11 Dose: 1 unit Rosuvastatin Calcium (Crestor) 5 mg PO HS [facility] Last Admin: 12/06/16 21:22 Dose: 5 mg Saccharomyces Boulardii (Florastor) 250 mg PO BID [facility] - Labs Labs: 12/07/16 06:12 12/07/16 06:12
[2016-12-07] MEDS: Saccharomyces Boulardi 250 mg Cap PO SCH ×2 (12:04→17:16)
--- NOTE | 2016-12-07 12:45 | US ---
PROCEDURE: Ultrasound of the Kidneys HISTORY: complex cyst on CT COMPARISON: CT of the abdomen and pelvis without IV contrast performed 12/11/12 TECHNIQUE: Sonogram of the kidneys. FINDINGS: RIGHT KIDNEY: Measures: 10.5 x 4.1 x 4.4 cm. Mild fullness of the right renal pelvis. No obstructing calculus identified. No renal cysts identified. LEFT KIDNEY: Measures: 9.3 x 4.5 x 4.7 cm. No hydronephrosis or obstructing calculus identified. Multiple probable renal cysts. 2.0 x 1.8 x 1.5 cm upper pole renal cyst. 2.5 x 1.6 x 1.7 cm midpole renal cyst. 2.3 x 1.7 x 1.9 cm lower pole renal cyst. 8 x 6 x 9 mm nonspecific hyperechoic region in the upper pole with questionable shadowing however calculus is not identified on CT performed the same day. OTHER FINDINGS: None. IMPRESSION: Mild fullness of the right renal pelvis. No obstructing calculus bilaterally. Multiple left renal cysts. 8 x 6 x 9 mm nonspecific hyperechoic region in the upper pole with questionable shadowing however calculus is not identified on CT performed the same day.
--- NOTE | 2016-12-07 13:27 | CP.PCM.PN ---
<Bernard Mackey - Last Filed: 12/07/16 20:54> Subjective - Date & Time of Evaluation Date of Evaluation: 12/07/16 Time of Evaluation: 07:50 - Subjective Subjective: PGY1 medicine note for Dr. Jean's service 86 year old female who was admitted for evaluation of abdominal pain associated with nausea/vomiting. She was found to be anemia and in acute renal failure and admitted for further evaluation and treatment. Today she is doing well and was able to get some sleep overnight. She was hungry and c/o of a headache which she thought was due to her not eating. She denied fevers, chills, sore throat, cough, chest pain, shortness of breath, or N/V/D. Objective - Vital Signs/Intake and Output Vital Signs (last 24 hours): Temp Pulse Resp BP Pulse Ox 98.7 F 67 20 133/72 100 12/07/16 08:22 12/07/16 08:22 12/07/16 08:22 12/07/16 08:22 12/07/16 08:22 Intake and Output: 12/07/16 12/07/16 06:59 18:59 Intake Total 240 Output Total 725 Balance -485 - Medications Medications: Current Medications Acetaminophen (Tylenol 325mg Tab) 650 mg PO Q6 PRN PRN Reason: Pain, moderate (4-7) Last Admin: 12/07/16 07:56 Dose: 650 mg Ferric Sodium Gluconate Complex (Ferrlecit) 125 mg IVPB DAILY [facility] Stop: 12/15/16 10:01 Last Admin: 12/07/16 10:00 Dose: 125 mg Ceftriaxone Sodium (Rocephin Iv 1 Gm Duplex) 50 mls @ 100 mls/hr IVPB Q24H [facility] Last Admin: 12/07/16 08:51 Dose: 100 mls/hr Sodium Chloride (Sodium Chloride 0.9%) 1,000 mls @ 75 mls/hr IV .[id number] [facility] Insulin Aspart (Novolog) 0 unit SC ACHS [facility] PRN Reason: Protocol Last Admin: 12/07/16 12:24 Dose: 2 unit Rosuvastatin Calcium (Crestor) 5 mg PO HS [facility] Last Admin: 12/06/16 21:22 Dose: 5 mg Saccharomyces Boulardii (Florastor) 250 mg PO BID [facility] Last Admin: 12/07/16 12:04 Dose: 250 mg - Labs Labs: 12/07/16 06:12 12/07/16 06:12 - Constitutional Appears: Non-toxic, No Acute Distress - Head Exam Head Exam: ATRAUMATIC, NORMOCEPHALIC - Eye Exam Eye Exam: EOMI - ENT Exam ENT Exam: Mucous Membranes Moist - Neck Exam Neck Exam: Full ROM. absent: Lymphadenopathy, Thyromegaly - Respiratory Exam Respiratory Exam: Clear to Ausculation Bilateral, NORMAL BREATHING PATTERN. absent: Wheezes - Cardiovascular Exam Cardiovascular Exam: REGULAR RHYTHM, +S1, +S2. absent: JVD - GI/Abdominal Exam GI & Abdominal Exam: Soft, Normal Bowel Sounds. absent: Tenderness - Extremities Exam Extremities Exam: absent: Joint Swelling, Tenderness - Back Exam Back Exam: NORMAL INSPECTION - Neurological Exam Neurological Exam: Alert, Awake, CN II-XII Intact, Normal Gait, Oriented x3 - Psychiatric Exam Psychiatric exam: Normal Affect, Normal Mood - Skin Skin Exam: Dry, Intact, Normal Color, Warm Assessment and Plan - Assessment and Plan (Free Text) Plan: 1). Anemia Likely Secondary to GI Bleed Stool Occult was POSITIVE F/U recommendations by GI Dr. Walker F/U Iron Studies -Fe, TIBC, and Ferritin all WNL, Fe%Sat 12 low received 1 u of blood, no complications 2). Acute Renal Failure Could this be secondary to dehydration (patient was not eating/drinking much 1 day prior to presentation secondary to nausea/vomiting) ? Patient had normal BUN/Cr in October 2016 BUN/Cr 72/1.8 on admission BUN/Cr 41/1.4 on 12/07 NS at 80 ml/hr HOLD Lasix F/U CT Abdomen/Pelvis -No SBO, please see full report F/U Consult Nephrology Dr. Ford 3). Hyperkalemia stable K was 6.4 on admission She was given Calcium Gluconate, Kayexalate, Novolin R in the ER K 12/06 5.4 and will await patient to have bowel movement K 12/07 4.9 4). Abdominal Distention CT Abdomen/Pelvis -No SBO, left renal complex cyst, please see full report Renal US please see full report -mild fulness of right renal pelvis, -No obstructing calculus bl -mult left renal cysts -[id number] hypoechoic region in left kidney 5). UTI She has a history of Bladder Rentention but is urinating fine on her own presently. Please note she was discharged to home on on last admission 10/15/16 with Brown Catheter secondary to high bladder urine residuals. UA showed LE + and WBC + Urine Culture E. Coli resistant to Cipro and Bactrim Flomax 0.4 mg PO 1x/day 6). DM 1 HgB A1C 8.1 on prior admission 10/15/16 RISS Accuchecks 7). Hx CAD HOLD ASA and Plavix due to the Anemia Echo 2016 was essentially normal Crestor 5 mg PO QHS 8). Hx HTN Blood Pressure eis 106/41 Holding Hydralazine, Norvasc, Valsartan, and Lasix 9). Prophylactic Measure SCDs: NO anticoagulation PT/OT <Atilio Jean - Last Filed: 12/08/16 09:29> Objective - Vital Signs/Intake and Output Vital Signs (last 24 hours): Temp Pulse Resp BP Pulse Ox 98.1 F 64 18 152/73 H 98 12/08/16 07:40 12/08/16 07:40 12/08/16 07:40 12/08/16 07:40 12/08/16 07:40 - Medications Medications: Current Medications Acetaminophen (Tylenol 325mg Tab) 650 mg PO Q6 PRN PRN Reason: Pain, moderate (4-7) Last Admin: 12/08/16 03:10 Dose: 650 mg Ferric Sodium Gluconate Complex (Ferrlecit) 125 mg IVPB DAILY [facility] Stop: 12/15/16 10:01 Last Admin: 12/07/16 10:00 Dose: 125 mg Ceftriaxone Sodium (Rocephin Iv 1 Gm Duplex) 50 mls @ 100 mls/hr IVPB Q24H [facility] Last Admin: 12/07/16 08:51 Dose: 100 mls/hr Sodium Chloride (Sodium Chloride 0.9%) 1,000 mls @ 75 mls/hr IV .[id number] [facility] Last Admin: 12/08/16 05:57 Dose: 75 mls/hr Insulin Aspart (Novolog) 0 unit SC ACHS [facility] PRN Reason: Protocol Last Admin: 12/08/16 08:25 Dose: Not Given Rosuvastatin Calcium (Crestor) 5 mg PO HS [facility] Last Admin: 12/07/16 22:06 Dose: 5 mg Saccharomyces Boulardii (Florastor) 250 mg PO BID [facility] Last Admin: 12/07/16 17:16 Dose: 250 mg - Labs Labs: 12/08/16 06:29 12/08/16 06:29 PT 11.2 SECONDS (9.7-12.2) 12/08/16 07:12 INR 1.0 12/08/16 07:12 APTT 30 SECONDS (21-34) 12/08/16 07:12 Attending/Attestation - Attestation I have personally seen and examined this patient.: Yes I have fully participated in the care of the patient.: Yes I have reviewed all pertinent clinical information, including history, physical exam and plan: Yes Notes (Text): 12/08/16 09:23 This patient was seen and examined at 5:15 PM 12/07/16 History, Physical, and Assessment and Plan were thoroughly gone over with the [facility] [place]. Patient will need repeat U/S Renal in 3 to 6 months for the Left Renal Complex Cyst as seen on CT Abdomen/Pelvis and Renal U/S. F/U workup for occult GI Malignancy: CA 19-9, CEA, AFP, CA 125 Urine Culture 12/05/16 showed (+) E. coli which is sensitive to Ceftriaxone which the patient is currently on. Repeat Urine Culture on 12/12/16 Florastor 250 mg PO 2x/day has been added as the patient is on Ceftriaxone and should be continued for 30 days after completing treatment for the UTI. Ferrlecit 125 mg IV 1x/day was added for the low iron studies Continue the IVF NS at 75 ml per hour until the Acute Renal Failure has resolved. Medicine Team please coordinate with GI Dr. Walker for performance of Upper EGD for further evaluation of the Anemia (Stool Occult was positive on admission). Patient will also need outpatient Colonoscopy if she has not had one recently. Atilio Jean D.O.
[2016-12-07 18:03] LABS: CARCINOEMBRYONIC ANTIGEN 2.8 ng/mL (0-3.0)
[2016-12-07 18:07] LABS: CA 19-9 30.1 U/mL (0-37)
--- NOTE | 2016-12-07 23:22 | PN ---
DATE: 12/07/2016 LOCATION: The patient is located in room 664, bed B. REQUESTED BY: Dr. Damon Kearney. REASON FOR FOLLOWUP: Acute renal failure, hyperkalemia and for further evaluation. HISTORY OF PRESENT ILLNESS: The patient is a 86-year-old elderly female with a past medical history significant for long-standing hypertension, diabetes, COPD, asthma, anxiety, who was admitted with weakness with nausea and vomiting x 1 day. The patient was found to have increased BUN and creatinine and increased potassium and low H and H. The patient is status post transfusion. The patient is feeling slightly better, complains of pain in both knees. No chest pain, no palpitation, no nausea, no vomiting today. PHYSICAL EXAMINATION: VITAL SIGNS: As follows: Blood pressure 133/72, pulse 67, respirations 20, temperature 98.7, saturation 100%, height 5 feet, weight is 130 pounds. GENERAL: The patient is a 86-year-old elderly female, thin built, not in acute distress. HEENT: Pupils normal, reactive to light and accommodation. Conjunctivae pink. Sclerae anicteric. Tongue is moist. NECK: Trachea is midline. LUNGS: Symmetric on both sides, clear to auscultation. CARDIOVASCULAR: [place] in the fifth intercostal space midclavicular line. S1 and S2 audible. No murmur or gallop. ABDOMEN: Normal in appearance, soft, tympanic. No guarding, no rigidity. No hepatosplenomegaly. CENTRAL NERVOUS SYSTEM: The patient is alert, awake, oriented x 3, nonfocal on examination. Cranial nerves II through XII grossly intact. Sensory and motor system is within normal limits. EXTREMITIES: No cyanosis, no clubbing, no edema. CURRENT MEDICATIONS: Include as follows: Crestor 5 mg at bedtime, Ferrlecit 125 mg IV daily, Florastor 250 mg p.o. b.i.d., NovoLog for insulin for sliding scale, Rocephin 1 gram q. 24 hours, IV fluids normal saline at 75 mL per hour, Tylenol 650 mg q. 6 hours p.r.n. Rocephin 1 gram daily discontinued. LABORATORY DATA: Include as follows: As of 12/07/2016, WBC 6.3, hemoglobin 9.1 , hematocrit is 28.3, and platelets 195. Sodium 138, potassium 4.9, chloride 102, CO2 27, BUN 41, creatinine 1.4, glucose 164, calcium 8.4, phosphorus 3.9, magnesium 2.1, total bilirubin 0.6, AST 33, ALT 21, alkaline phosphatase 55, total protein 6.7, albumin is 3.9. B12 is 756 and folic acid is more than 20. Other laboratory data: Alpha fetoprotein is 1.9, CEA is 2.8 and CA 19-9 is 30, CA-125 is 8.2 and stool for occult blood is positive as of 12/05/2016. SUMMARY: The patient is a 86-year-old elderly female with bilateral renal cysts , was admitted with nausea, vomiting and weakness with increased BUN and creatinine and hyperkalemia and low H and H, status post transfusion. IMPRESSION: 1. Acute renal failure, picture consistent with prerenal azotemia. 2. Hyperkalemia, most likely secondary to gastrointestinal bleed and renal insufficiency. 3. Anemia, rule out upper gastrointestinal bleed. 4. Hypertension. Blood pressure is stable. Follow up with GI, consider EGD. 5. Renal function is improving and potassium is within normal limits. Will follow with you. 6. Bilateral renal cysts, asymptomatic at this time. 7. Urinary tract infection secondary to Escherichia coli, sensitive to Rocephin. Continue Rocephin 1 gram daily. monitor sugars Will follow with you. Thank you for allowing me to participate in your patient's care. Howie Ford MD cc: [id number] TT: 12/07/2016 23:22:05 Confirmation # [id number] Dictation # [id number] sascha PANDEY
[2016-12-08] MEDS: Sodium Chloride 0.9% 1,000 ML IV SCH ×2 (05:57→12:08)
[2016-12-08 06:47] LABS: POTASSIUM 4.5 mmol/L (3.6-5.2)
[2016-12-08 06:49] LABS: ALB/GLOB RATIO 1.4 (1.0-2.1); BILIRUBIN,TOTAL 0.5 mg/dL (0.2-1.3); TOTAL PROTEIN 6.7 g/dL (6.3-8.3)
[2016-12-08 06:50] LABS: CALCIUM 8.4 mg/dl (8.6-10.4); MAGNESIUM 1.8 mg/dL (1.6-2.3); PHOSPHOROUS 3.5 mg/dL (2.5-4.5)
[2016-12-08 06:51] LABS: BASO # 0.1 K/uL (0.0-0.2); BASO % 0.9 % (0.0-2.0); EOS # 0.2 K/uL (0.0-0.7); EOS % 4.2 % (0.0-4.0); HEMATOCRIT 28.8 % (34.0-47.0); LYMPH # 1.9 K/uL (1.0-4.3); LYMPH % 32.4 % (20.0-40.0); MEAN CELL VOLUME 87.4 fL (81.0-99.0); MEAN CORPUSCULAR HEMOGLOBIN 28.9 pg (27.0-31.0); MEAN CORPUSCULAR HGB CONC 33.1 g/dL (33.0-37.0); MEAN PLATELET VOLUME 8.9 fL (7.2-11.7); MONO # 0.8 K/uL (0.0-0.8); MONO % 13.9 % (0.0-10.0); RED CELL DISTRIBUTION WIDTH 14.3 % (11.5-14.5); WHITE BLOOD COUNT 5.9 K/uL (4.8-10.8)
--- NOTE | 2016-12-08 07:12 | PN ---
DATE: 12/07/2016 LOCATION: 664, bed B. This is an 86-year-old female seen and examined today in rounds. The patient seen for official GI co nsultation on 12/06/2016 as requested by the admitting medical team as well as the primary MD. The e ntire chart is reviewed, including but not limited to most recent lab and radiology study results, cu rrent and the previous medication list, current and the previous medical events. Most recent lab results showed low hemoglobin 9.1, low hematocrit 28.3 with increased BUN to 41, crea tinine 1.4 with elevated blood glucose level to 225 with low calcium 8.4. Case discussed with the staff on the floor at length. The patient had abdominal and pelvic CAT scan indicative of no evidence of bowel obstruction, but com plex cystic versus mass lesion from the left kidney. The patient denied any episode of active bleeding, nausea or vomiting this morning. PHYSICAL EXAMINATION: GENERAL: An 86-year-old female. VITAL SIGNS: Afebrile with pulse of 70, blood pressure of 130/76. GENERAL: Awake, alert, oriented. The patient refusing restarting of IV fluid so far. HEENT: Showed pale, dry oral mucoid membrane. Nonicteric sclerae. LUNGS: Few scattered crepitation, decreased air entry at bases. HEART: Positive S1 and S2. ABDOMEN: Soft with mild generalized tenderness. No mass or organomegaly. No rebound tenderness or guarding. The patient is still having mid epigastric tenderness with reported episode of nausea and vomiting before. EXTREMITIES: Lower extremities, mild edematous changes. No clubbing or cyanosis. NEUROLOGIC: No reported neurological deficit, new, motor or sensory. IMPRESSION: 1. Reexacerbation of peptic ulcer disease with possible gastric versus duodenal ulcer. 2. Multiple past medical history including, but not limited to bronchial asthma, osteoarthritis, 3. 4. Anemia, most likely secondary to chronic disease. 5. Rule out occult gastrointestinal malignancy. 6. Renal cystic lesion of unclear etiology. SUGGESTIONS: 1. Agree with your plan. 2. Upper endoscopy at a.m. when the patient is more stable clinically. 3. Cancer markers. 4. Further recommendation to follow pending the outcome of the patient's clinical status. Rigoberto Walker MD cc: 14 TT: 12/07/2016 13:17:06 Confirmation # [id number] Dictation # [id number] sn
[2016-12-08] MEDS: (Novolog) Insulin Aspart, Recombinant 100 u/ml 10 ml vial SC SCH ×4 (08:25→21:52)
[2016-12-08] MEDS ORDERED: Lidocaine Hydrochloride 5 ML INJ ONE (09:51)
[2016-12-08] MEDS ORDERED: Propofol 10 mg/ml Inj (20 ML) ONE (09:51)
[2016-12-08] MEDS: cefTRIAXone IV 1 gm in Dextros 50 ML IVPB SCH (11:13)
[2016-12-08] MEDS: Saccharomyces Boulardi 250 mg Cap PO SCH ×2 (11:14→17:46)
--- NOTE | 2016-12-08 11:26 | CP.PCM.PN ---
Subjective - Date & Time of Evaluation Date of Evaluation: 12/08/16 Time of Evaluation: 11:25 - Subjective Subjective: pt seen and examined, follow up consult is dictated #[id number] renal function is improving Objective - Vital Signs/Intake and Output Vital Signs (last 24 hours): Temp Pulse Resp BP Pulse Ox 97.9 F 64 25 H 150/61 100 12/08/16 10:00 12/08/16 10:30 12/08/16 10:30 12/08/16 10:30 12/08/16 10:30 Intake and Output: 12/08/16 12/08/16 06:59 18:59 Intake Total 200 Balance 200 - Medications Medications: Current Medications Acetaminophen (Tylenol 325mg Tab) 650 mg PO Q6 PRN PRN Reason: Pain, moderate (4-7) Last Admin: 12/08/16 03:10 Dose: 650 mg Ferric Sodium Gluconate Complex (Ferrlecit) 125 mg IVPB DAILY [facility] Stop: 12/15/16 10:01 Last Admin: 12/07/16 10:00 Dose: 125 mg Ceftriaxone Sodium (Rocephin Iv 1 Gm Duplex) 50 mls @ 100 mls/hr IVPB Q24H [facility] Last Admin: 12/08/16 11:13 Dose: 100 mls/hr Sodium Chloride (Sodium Chloride 0.9%) 1,000 mls @ 75 mls/hr IV .[id number] [facility] Last Admin: 12/08/16 05:57 Dose: 75 mls/hr Insulin Aspart (Novolog) 0 unit SC ACHS [facility] PRN Reason: Protocol Last Admin: 12/08/16 08:25 Dose: Not Given Rosuvastatin Calcium (Crestor) 5 mg PO HS [facility] Last Admin: 12/07/16 22:06 Dose: 5 mg Saccharomyces Boulardii (Florastor) 250 mg PO BID [facility] Last Admin: 12/08/16 11:14 Dose: 250 mg Sucralfate (Carafate Oral Susp) 1 gm PO ACBD [facility] - Labs Labs: 12/08/16 06:29 12/08/16 06:29 PT 11.2 SECONDS (9.7-12.2) 12/08/16 07:12 INR 1.0 12/08/16 07:12 APTT 30 SECONDS (21-34) 12/08/16 07:12
[2016-12-08] MEDS: Ferric Sodium Gluconat Complex 62.5 mg/5 ml Vial IVPB SCH (12:07)
[2016-12-08] MEDS: Sucralfate 1 gm/10 ml Oral Susp UD PO SCH (16:46)
--- NOTE | 2016-12-08 20:53 | CP.PCM.PN ---
<Bernard Mackey - Last Filed: 12/08/16 22:51> Subjective - Date & Time of Evaluation Date of Evaluation: 12/08/16 Time of Evaluation: 07:10 - Subjective Subjective: PGY1 medicine note for Dr. Carmona's service 86 year old female who was admitted for evaluation of abdominal pain associated with nausea/vomiting. She was found to be anemia and in acute renal failure and admitted for further evaluation and treatment. Today she is doing well and has no complaints. She is scheduled to have colonoscopy on Sunday. She denied headache, fevers, chills, sore throat, cough, chest pain, shortness of breath, or N/V/D. Objective - Vital Signs/Intake and Output Vital Signs (last 24 hours): Temp Pulse Resp BP Pulse Ox 98.8 F 66 20 133/63 95 12/08/16 15:00 12/08/16 15:32 12/08/16 15:00 12/08/16 15:00 12/08/16 15:00 Intake and Output: 12/08/16 12/09/16 18:59 06:59 Intake Total 200 Balance 200 - Medications Medications: Current Medications Acetaminophen (Tylenol 325mg Tab) 650 mg PO Q6 PRN PRN Reason: Pain, moderate (4-7) Last Admin: 12/08/16 03:10 Dose: 650 mg Ferric Sodium Gluconate Complex (Ferrlecit) 125 mg IVPB DAILY [facility] Stop: 12/15/16 10:01 Last Admin: 12/08/16 12:07 Dose: 125 mg Ceftriaxone Sodium (Rocephin Iv 1 Gm Duplex) 50 mls @ 100 mls/hr IVPB Q24H [facility] Last Admin: 12/08/16 11:13 Dose: 100 mls/hr Sodium Chloride (Sodium Chloride 0.9%) 1,000 mls @ 75 mls/hr IV .[id number] [facility] Last Admin: 12/08/16 12:08 Dose: Not Given Insulin Aspart (Novolog) 0 unit SC ACHS [facility] PRN Reason: Protocol Last Admin: 12/08/16 17:46 Dose: 2 unit Rosuvastatin Calcium (Crestor) 5 mg PO HS [facility] Last Admin: 12/07/16 22:06 Dose: 5 mg Saccharomyces Boulardii (Florastor) 250 mg PO BID [facility] Last Admin: 12/08/16 17:46 Dose: 250 mg Sucralfate (Carafate Oral Susp) 1 gm PO ACBD [facility] Last Admin: 12/08/16 16:46 Dose: 1 gm - Labs Labs: 12/08/16 06:29 12/08/16 06:29 PT 11.2 SECONDS (9.7-12.2) 12/08/16 07:12 INR 1.0 12/08/16 07:12 APTT 30 SECONDS (21-34) 12/08/16 07:12 - Additional Findings Additional findings: - Constitutional Appears: Non-toxic, No Acute Distress - Head Exam Head Exam: ATRAUMATIC, NORMOCEPHALIC - Eye Exam Eye Exam: EOMI - ENT Exam ENT Exam: Mucous Membranes Moist - Neck Exam Neck Exam: Full ROM. absent: Lymphadenopathy, Thyromegaly - Respiratory Exam Respiratory Exam: Clear to Ausculation Bilateral, NORMAL BREATHING PATTERN. absent: Wheezes - Cardiovascular Exam Cardiovascular Exam: REGULAR RHYTHM, +S1, +S2. absent: JVD - GI/Abdominal Exam GI & Abdominal Exam: Soft, Normal Bowel Sounds. absent: Tenderness - Extremities Exam Extremities Exam: absent: Joint Swelling, Tenderness - Back Exam Back Exam: NORMAL INSPECTION - Neurological Exam Neurological Exam: Alert, Awake, CN II-XII Intact, Normal Gait, Oriented x3 - Psychiatric Exam Psychiatric exam: Normal Affect, Normal Mood - Skin Skin Exam: Dry, Intact, Normal Color, Warm Assessment and Plan - Assessment and Plan (Free Text) Plan: 1). Anemia Likely Secondary to GI Bleed Stool Occult was POSITIVE received 1 u of blood, no complications GI Consult - Dr. Walker (please see full report) -EGD on 12/08 -Med size hiatal hernia, stomach normal, duodenum normal Colonoscopy in 3 days, Sunday -Cancer Markers CEA, 19-9, CA 125 all negative -Iron Studies Fe, TIBC, and Ferritin all WNL, Fe%Sat 12 low 2). Acute Renal Failure Could this be secondary to dehydration (patient was not eating/drinking much 1 day prior to presentation secondary to nausea/vomiting) ? Patient had normal BUN/Cr in October 2016 BUN/Cr 72/1.8 on admission BUN/Cr 41/1.4 on 12/07 NS at 80 ml/hr HOLD Lasix F/U CT Abdomen/Pelvis -No SBO, please see full report F/U Consult Nephrology Dr. Ford 3). Hyperkalemia stable K was 6.4 on admission 4). Abdominal Distention CT Abdomen/Pelvis -No SBO, left renal complex cyst, please see full report Renal US please see full report -mult left renal cysts -[id number] hypoechoic region in left kidney 5). UTI She has a history of Bladder Rentention but is urinating fine on her own presently. Please note she was discharged to home on on last admission 10/15/16 with Brown Catheter secondary to high bladder urine residuals. UA showed LE + and WBC + Urine Culture E. Coli resistant to Cipro and Bactrim on Ceftriaxone Flomax 0.4 mg PO 1x/day 6). DM 1 HgB A1C 8.1 on prior admission 10/15/16 RISS Accuchecks 7). Hx CAD HOLD ASA and Plavix due to the Anemia Echo 2016 was essentially normal Crestor 5 mg PO QHS 8). Hx HTN Blood Pressure eis 106/41 Holding Hydralazine, Norvasc, Valsartan, and Lasix 9). Prophylactic Measure SCDs: NO anticoagulation PT/OT <Max Carmona - Last Filed: 01/10/17 11:09> Objective - Vital Signs/Intake and Output Vital Signs (last 24 hours): Temp Pulse Resp BP Pulse Ox 98.2 F 78 20 156/53 H 97 12/12/16 15:55 12/12/16 15:55 12/12/16 15:55 12/12/16 15:55 12/12/16 15:55 - Labs Labs: 12/12/16 11:54 12/12/16 11:54 PT 11.2 SECONDS (9.7-12.2) 12/08/16 07:12 INR 1.0 12/08/16 07:12 APTT 30 SECONDS (21-34) 12/08/16 07:12 Attending/Attestation - Attestation I have personally seen and examined this patient.: Yes I have fully participated in the care of the patient.: Yes I have reviewed all pertinent clinical information, including history, physical exam and plan: Yes Notes (Text): Patient Seen and examined with the resident. Agree with the resident's evaluation, assessment and plan. 1). Anemia Likely Secondary to GI Bleed 2). Acute Renal Failure 3). Hyperkalemia stable
--- NOTE | 2016-12-08 23:48 | PN ---
DATE: 12/08/2016 The patient is located in room 664, bed B. REQUESTED BY: Dr. Damon Kearney. REASON FOR RENAL CONSULTATION: Hyperkalemia, acute renal failure and anemia. HISTORY OF PRESENT ILLNESS: The patient is an 86-year-old elderly female with a history of hypertension, diabetes, CAD, COPD, asthma, anxiety and gastritis, who was admitted with the chief complaint of nausea and vomiting x 1 day, dizziness and found to have hyperkalemia and also increased BUN and creatinine. She is status post treatment for the hyperkalemia and started on IV fluids. The patient is feeling better, not in acute distress and also is status post transfusion. Denies any headache or dizziness. Denies any chest pain or palpitations. Denies any fever or cough. No nausea, vomiting or diarrhea. Complains of knee pains. PHYSICAL EXAMINATION: VITAL SIGNS: This morning as follows: Blood pressure 142/55, pulse 68, respirations 21 and temperature is 98.1 and saturation is 100%. Height 5 feet and weight is 130 pounds. GENERAL: The patient is an 86-year-old elderly female, thin build, not in acute distress. HEENT: Pupils normal, reactive to light and accommodation. Conjunctivae pink. Sclerae anicteric. Tongue is moist. NECK: Trachea is midline. LUNGS: Symmetric on both sides. Bilateral breath sounds present. Clear on auscultation. CARDIOVASCULAR: [place]igo at the fifth intercostal space midclavicular line. S1 and S2 audible. No murmur or gallop. ABDOMEN: Normal in appearance, soft, tympanic. No guarding, no rigidity. No hepatosplenomegaly. CENTRAL NERVOUS SYSTEM: The patient is alert, awake, oriented x 3. Nonfocal on examination. Cranial nerves II through XII grossly intact. Sensory and motor system is within normal limits. EXTREMITIES: No cyanosis, no clubbing, no edema. CURRENT MEDICATIONS: Include as follows: Carafate 1 gram p.o. daily, Crestor 5 mg at bedtime, Ferrlecit 125 mg daily, Florastor 250 mg p.o. b.i.d., NovoLog for sliding scale, Rocephin 1 gram q.24 hours, IV fluids, normal saline at 70 mL per hour and Tylenol 650 mg p.o. q.6 hours p.r.n. LABORATORY DATA: As of 12/08/2016. , hemoglobin 9.5, hematocrit is 28.8, platelets 198. PT 11.2, INR is 1.0, PTT 30. Sodium 138, potassium 4.5, chloride 101, , BUN 32, creatinine 1.1, glucose 175, calcium 8.5, total protein 3.5, magnesium 1.8. Total bilirubin 0.5, AST 25, ALT 21, alkaline phosphatase 54, total protein 6.7, albumin is 3.9. EGD report: Medium sized hiatal hernia and acute gastritis, Urine culture is positive for E. coli as of 12/05/2016. IN SUMMARY: The patient is an 86-year-old elderly female with a history of hypertension, diabetes, chronic obstructive pulmonary disease, asthma, coronary artery disease, gastritis and a hiatal hernia, who was admitted with abdominal pain, nausea, vomiting, increased BUN and creatinine and increased potassium and low hemoglobin and hematocrit and is status post esophagogastroduodenoscopy and transfusion. 1. Acute renal failure. The picture is consistent with prerenal azotemia. 2. Status post hyperkalemia secondary to renal failure and most likely secondary to gastrointestinal bleed. 3. Urinary tract infection. 4. Hypertension. Blood pressure is stable. Will continue IV iron, Ferrlecit 125 mg daily and follow up with GI. Her renal function is almost back to her baseline. Will follow up as needed. Thank you for allowing me to participate in your patient's care and will sign off the case. Howie Ford MD cc: [id number] TT: 12/08/2016 23:47:43 Confirmation # [id number] Dictation # [id number] mark PANDEY
[2016-12-09] MEDS: Sodium Chloride 0.9% 1,000 ML IV SCH ×2 (02:20→18:30)
--- NOTE | 2016-12-09 03:49 | CP.PCM.PN ---
<Stephanie Blue - Last Filed: 12/09/16 03:45> Subjective - Date & Time of Evaluation Date of Evaluation: 12/09/16 Time of Evaluation: 03:45 - Subjective Subjective: PGY-1 medicine note - Dr. aCrmona's service Pt seen and examined bedside. Patient complained of some right knee pain exacerbated by movements. Otherwise she denied headaches, subjective fevers or chills,nausea, vomiting, diarrhea, chest pain, palpitations or paresthesias at this time. Objective - Vital Signs/Intake and Output Vital Signs (last 24 hours): Temp Pulse Resp BP Pulse Ox 98.5 F 66 20 133/63 98 12/08/16 23:00 12/08/16 23:30 12/08/16 23:00 12/08/16 15:00 12/08/16 23:00 Intake and Output: 12/08/16 12/09/16 18:59 06:59 Intake Total 200 Balance 200 - Medications Medications: Current Medications Acetaminophen (Tylenol 325mg Tab) 650 mg PO Q6 PRN PRN Reason: Pain, moderate (4-7) Last Admin: 12/08/16 03:10 Dose: 650 mg Ferric Sodium Gluconate Complex (Ferrlecit) 125 mg IVPB DAILY [facility] Stop: 12/15/16 10:01 Last Admin: 12/08/16 12:07 Dose: 125 mg Ceftriaxone Sodium (Rocephin Iv 1 Gm Duplex) 50 mls @ 100 mls/hr IVPB Q24H [facility] Last Admin: 12/08/16 11:13 Dose: 100 mls/hr Sodium Chloride (Sodium Chloride 0.9%) 1,000 mls @ 75 mls/hr IV .[id number] [facility] Last Admin: 12/09/16 02:20 Dose: 75 mls/hr Insulin Aspart (Novolog) 0 unit SC ACHS [facility] PRN Reason: Protocol Last Admin: 12/08/16 21:52 Dose: Not Given Rosuvastatin Calcium (Crestor) 5 mg PO HS [facility] Last Admin: 12/08/16 21:27 Dose: 5 mg Saccharomyces Boulardii (Florastor) 250 mg PO BID [facility] Last Admin: 12/08/16 17:46 Dose: 250 mg Sucralfate (Carafate Oral Susp) 1 gm PO ACBD [facility] Last Admin: 12/08/16 16:46 Dose: 1 gm - Labs Labs: 12/08/16 06:29 12/08/16 06:29 PT 11.2 SECONDS (9.7-12.2) 12/08/16 07:12 INR 1.0 12/08/16 07:12 APTT 30 SECONDS (21-34) 12/08/16 07:12 - Constitutional Appears: Non-toxic, No Acute Distress - Head Exam Head Exam: ATRAUMATIC, NORMAL INSPECTION, NORMOCEPHALIC - Eye Exam Eye Exam: EOMI, Normal appearance, PERRL Pupil Exam: NORMAL ACCOMODATION - ENT Exam ENT Exam: Mucous Membranes Moist - Neck Exam Neck Exam: Full ROM - Respiratory Exam Respiratory Exam: NORMAL BREATHING PATTERN. absent: Wheezes - Cardiovascular Exam Cardiovascular Exam: REGULAR RHYTHM, +S1, +S2 - GI/Abdominal Exam GI & Abdominal Exam: Soft - Extremities Exam Extremities Exam: Joint Swelling (right knee ), Normal Capillary Refill, Tenderness (right knee). absent: Pedal Edema - Back Exam Back Exam: Full ROM - Neurological Exam Neurological Exam: Alert, Awake, Oriented x3 - Psychiatric Exam Psychiatric exam: Normal Affect, Normal Mood - Skin Skin Exam: Dry, Normal Color, Warm Assessment and Plan - Assessment and Plan (Free Text) Assessment: Anemia Likely Secondary to GI Bleed Stool Occult positive received 1 u of blood, no complications GI Consult - Dr. Walker (please see full report) -EGD on 12/08 -Med size hiatal hernia, stomach normal, duodenum normal Colonoscopy on Sunday -Cancer Markers CEA, 19-9, CA 125 all negative -Iron Studies Fe, TIBC, and Ferritin all WNL, Fe%Sat 12 low Acute Renal Failure Likely secondary to dehydration (decreasd intake 1 day prior to presentation secondary to nausea/vomiting) Patient had normal BUN/Cr in October 2016 BUN/Cr 72/1.8 on admission BUN/Cr 41/1.4 on 12/07 Now improving. Continue to monitor NS at 80 ml/hr HOLD Lasix F/U CT Abdomen/Pelvis -No SBO, please see full report F/U Consult Nephrology Dr. Ford Hyperkalemia resolved Abdominal Distention CT Abdomen/Pelvis -No SBO, left renal complex cyst, please see full report Renal US please see full report -mult left renal cysts -[id number] hypoechoic region in left kidney UTI She has a history of Bladder Retention but is urinating fine on her own presently. Please note she was discharged to home on on last admission 10/15/16 with Brown Catheter secondary to high bladder urine residuals. UA showed LE + and WBC + Urine Culture E. Coli resistant to Cipro and Bactrim on Ceftriaxone Flomax 0.4 mg PO 1x/day DM 1 HgB A1C 8.1 on prior admission 10/15/16 RISS Accuchecks Hx CAD HOLD ASA and Plavix due to the Anemia Echo 2015 was essentially normal Crestor 5 mg PO QHS Hx HTN Blood Pressure eis 106/41 Holding Hydralazine, Norvasc, Valsartan, and Lasix Prophylactic Measure SCDs: NO chemical anticoagulation at this time PT/OT- F/U <Max Carmona - Last Filed: 01/17/17 10:23> Objective - Vital Signs/Intake and Output Vital Signs (last 24 hours): Temp Pulse Resp BP Pulse Ox 98.2 F 78 20 156/53 H 97 12/12/16 15:55 12/12/16 15:55 12/12/16 15:55 12/12/16 15:55 12/12/16 15:55 - Labs Labs: 12/12/16 11:54 12/12/16 11:54 PT 11.2 SECONDS (9.7-12.2) 12/08/16 07:12 INR 1.0 12/08/16 07:12 APTT 30 SECONDS (21-34) 12/08/16 07:12 Attending/Attestation - Attestation I have personally seen and examined this patient.: Yes I have fully participated in the care of the patient.: Yes I have reviewed all pertinent clinical information, including history, physical exam and plan: Yes Notes (Text): Patient Seen and examined with the resident. Agree with the resident's evaluation, assessment and plan. Anemia Likely Secondary to GI Bleed Stool Occult positive received 1 u of blood, no complications GI Consult - Dr. Walker (please see full report) -EGD on 12/08 -Med size hiatal hernia, stomach normal, duodenum normal Colonoscopy on Sunday -Cancer Markers CEA, 19-9, CA 125 all negative -Iron Studies Fe, TIBC, and Ferritin all WNL, Fe%Sat 12 low Acute Renal Failure Likely secondary to dehydration (decreasd intake 1 day prior to presentation secondary to nausea/vomiting) Patient had normal BUN/Cr in October 2016 BUN/Cr 72/1.8 on admission BUN/Cr 41/1.4 on 12/07 Now improving. Continue to monitor NS at 80 ml/hr HOLD Lasix F/U CT Abdomen/Pelvis -No SBO, please see full report F/U Consult Nephrology Dr. Ford Hyperkalemia resolved
--- NOTE | 2016-12-09 05:51 | CON ---
DATE: 12/06/[address] Rigoberto Walker to Dr. Kearney. I was called for GI consultation by the admitting MD. The patient is seen and fully examined on 10/2016 as requested by the admitting medical staff. The entire chart is reviewed, including but not limited to the most recent lab and radiology study results, current and the previous medication list, current and the previous medical events, as well as allergies to medications list. Case discussed with the staff on the floor at length. HISTORY OF PRESENT ILLNESS: This is an 86-year-old female who was admitted to the hospital with marlin re crampy mid epigastric abdominal pain associated with dyspepsia, nausea and loss of appetite with p oor oral intake for the last 2-3 days associated with episodes of nausea and vomiting, but no reporte d active bleeding, no reported chest pain or palpitation or significant shortness of breath. LABORATORY DATA: After being admitted to the hospital, the patient was found to have low hemoglobin of 7.4 with hematocrit 23.0 with increased potassium 6.4, increased BUN is 65, creatinine elevated to 1.8 with blood glucose level of 200. PAST MEDICAL HISTORY: Including mainly, but not limited to COPD, hypertension with hyperlipidemia, p eptic ulcer disease, diabetes mellitus, osteoporosis with chronic low back pain syndrome. The patient also has a history of coronary artery disease with status post coronary artery stent inse rtion. Known history of rheumatoid arthritis. FAMILY HISTORY: Noncontributory. SOCIAL HISTORY: Denied any recent history of cigarette smoking or alcohol intake. ALLERGY TO MEDICATION: Unclear. CURRENT MEDICATIONS: Medication lists were reviewed. PHYSICAL EXAMINATION: GENERAL: An 86-year-old female, appears to be awake, alert, oriented, seen and examined also in the presence of nursing staff as online merchandising coordinator due to some language barrier. VITAL SIGNS: Afebrile with a pulse of 74, respiratory rate 20-22, blood pressure 118/52. HEENT: Showed pale, dry oral mucoid membrane. Nonicteric sclerae. LYMPH NODES: No lymphadenitis or lymphadenopathy. LUNGS: Scattered crepitation. Decreased air entry at bases. HEART: Positive S1 and S2. ABDOMEN: Soft with moderate to severe midepigastric and midabdominal line tenderness. Bowel sounds are hypoactive. No mass or organomegaly. No rebound tenderness or guarding. RECTAL: The patient refused. EXTREMITIES: Without significant clubbing or cyanosis, but with evidence of osteoarthritis and mild edematous changes. NEUROLOGIC: No reported new neurological deficit, sensory or motor. IMPRESSION: 1. Reexacerbation of peptic ulcer disease, to rule out gastric versus duodenal ulcer. 2. Anemia with guaiac positive stool, as reported, rule out colonic gastrointestinal blood loss, upp er versus lower versus gastrointestinal tract occult malignancy. 3. Multiple past medical history including, but not limited to hypertension, hyperlipidemia, osteopo rosis, chronic lower back pain syndrome, coronary artery disease status post coronary stent insertion . 4. No neurological deficit, motor reported. SUGGESTION: 1. Agree with your plan. 2. Abdominal ultrasound with attention to the biliary tree and the pancreas. 3. Serum lipase, amylase level. 4. Cancer markers. 5. Flagyl 500 mg through the following 36-48 hours. 6. Endoscopic evaluation of the upper GI tract. 7. Ultrasound of the abdomen with attention to the biliary tree and the pancreas. 8. Serum lipase and amylase level. 9. Further recommendations to follow, and if the patient's hemoglobin and hematocrit subsequently dr op post-blood transfusion, then colonoscopy to be kept in mind. Otherwise, under close observation t o continue. Rigoberto Walker MD cc: 14 TT: 12/09/2016 05:49:56 Confirmation # [id number] Dictation # [id number] sc
[2016-12-09] MEDS: Sucralfate 1 gm/10 ml Oral Susp UD PO SCH ×2 (06:46→17:30)
[2016-12-09] MEDS: (Novolog) Insulin Aspart, Recombinant 100 u/ml 10 ml vial SC SCH ×4 (08:17→21:37)
[2016-12-09] MEDS: Saccharomyces Boulardi 250 mg Cap PO SCH ×2 (09:48→17:30)
[2016-12-09] MEDS: cefTRIAXone IV 1 gm in Dextros 50 ML IVPB SCH (09:49)
--- NOTE | 2016-12-09 12:24 | PN ---
DATE: 12/09/2016 LOCATION: 664, bed B. SUBJECTIVE: This is an 86-year-old female, post upper endoscopy, pathology report still pending, see n and examined in rounds without significant clinical changes or reported active bleeding, but with i ntermittent periods of complaint of abdominal pain with dyspepsia. The patient tolerated oral intake well and complaining of right knee pain. No nausea or vomiting. The entire chart is reviewed, including but not limited to the most recent lab and radiology study re sults, current and previous medication list, current and the previous medical events. Latest blood g lucose level 172 and the patient still has low hemoglobin and hematocrit as well as low calcium. PHYSICAL EXAMINATION: GENERAL: An 86-year-old female, awake, alert. VITAL SIGNS: Afebrile with pulse of 74, respiratory rate of 20-22, blood pressure of 144/60. HEENT: Showed pale, dry mucoid membrane. Nonicteric sclerae. LUNGS: Few scattered crepitation, decreased air entry at bases. HEART: Positive S1 and S2. ABDOMEN: Soft with mild generalized tenderness. No mass or organomegaly. No rebound tenderness or guarding. EXTREMITIES: Without significant edema, clubbing or cyanosis. NEUROLOGIC: No reported new neurological deficits, sensory or motor. IMPRESSION: 1. Renal insufficiency. 2. Reexacerbation of peptic ulcer disease. 3. Electrolyte imbalance with hyperkalemia. 4. Known history of diabetes mellitus as well as hypertension. 5. Known history of coronary artery disease. 6. Known history of hyperlipidemia, osteoporosis as well as chronic lower back pain syndrome and cor onary artery disease with status post cardiac stent insertion. SUGGESTION: 1. Continue current management. 2. Guaiac all the stool daily x 3. 3. If the patient's symptoms persist with subsequent drop of hemoglobin and hematocrit, then colonos copy to be kept in mind. Otherwise, close observation. Rigoberto Walker MD cc: 14 TT: 12/09/2016 12:24:18 Confirmation # [id number] Dictation # [id number] yuri
[2016-12-09] MEDS: Ferric Sodium Gluconat Complex 62.5 mg/5 ml Vial IVPB SCH (12:30)
[2016-12-09 14:32] LABS: BASO # 0.1 K/uL (0.0-0.2); EOS # 0.2 K/uL (0.0-0.7); EOS % 4.5 % (0.0-4.0); HEMATOCRIT 29.9 % (34.0-47.0); LYMPH # 1.6 K/uL (1.0-4.3); LYMPH % 30.6 % (20.0-40.0); MEAN CELL VOLUME 88.8 fL (81.0-99.0); MEAN CORPUSCULAR HEMOGLOBIN 28.6 pg (27.0-31.0); MEAN CORPUSCULAR HGB CONC 32.2 g/dL (33.0-37.0); MEAN PLATELET VOLUME 9.3 fL (7.2-11.7); MONO # 0.6 K/uL (0.0-0.8); MONO % 11.2 % (0.0-10.0); RED CELL DISTRIBUTION WIDTH 14.3 % (11.5-14.5); WHITE BLOOD COUNT 5.2 K/uL (4.8-10.8)
[2016-12-09 14:55] LABS: CHLORIDE 101 mmol/L (98-107); POTASSIUM 4.8 mmol/L (3.6-5.2); SODIUM 139 mmol/L (132-148)
[2016-12-09 14:57] LABS: ALB/GLOB RATIO 1.4 (1.0-2.1); ALKALINE PHOSPHATASE 45 U/L (38-126); AST/SGOT 25 U/L (14-36); BILIRUBIN,TOTAL 0.5 mg/dL (0.2-1.3); BLOOD UREA NITROGEN 24 mg/dL (7-17); CARBON DIOXIDE 25 mmol/L (22-30); GFR AFRICAN-AMERICAN > 60; TOTAL PROTEIN 6.5 g/dL (6.3-8.3)
[2016-12-09 14:58] LABS: ALT/SGPT 21 U/L (9-52); CALCIUM 8.3 mg/dl (8.6-10.4); GLUCOSE,RANDOM 229 mg/dL (65-105); MAGNESIUM 1.7 mg/dL (1.6-2.3)
--- NOTE | 2016-12-10 01:53 | CP.PCM.PN ---
<MirzaJuan Davidjulian - Last Filed: 12/10/16 01:51> Subjective - Date & Time of Evaluation Date of Evaluation: 12/10/16 Time of Evaluation: 01:51 - Subjective Subjective: PGY-1 medicine note - Dr. Carmona's service Pt seen and examined bedside. Patient denies pain at this time. Patient resting comfortably in bed. She required assistance to bathroom. She also denied headaches, subjective fevers or chills,nausea, vomiting, diarrhea, chest pain, palpitations or paresthesias at this time. Objective - Vital Signs/Intake and Output Vital Signs (last 24 hours): Temp Pulse Resp BP Pulse Ox 98.9 F 81 20 149/62 96 12/09/16 23:20 12/09/16 23:30 12/09/16 23:20 12/09/16 23:20 12/09/16 23:20 Intake and Output: 12/09/16 12/10/16 18:59 06:59 Intake Total 800 Balance 800 - Medications Medications: Current Medications Acetaminophen (Tylenol 325mg Tab) 650 mg PO Q6 PRN PRN Reason: Pain, moderate (4-7) Last Admin: 12/10/16 01:13 Dose: 650 mg Ferric Sodium Gluconate Complex (Ferrlecit) 125 mg IVPB DAILY [facility] Stop: 12/15/16 10:01 Last Admin: 12/09/16 12:30 Dose: 125 mg Ceftriaxone Sodium (Rocephin Iv 1 Gm Duplex) 50 mls @ 100 mls/hr IVPB Q24H [facility] Last Admin: 12/09/16 09:49 Dose: 100 mls/hr Sodium Chloride (Sodium Chloride 0.9%) 1,000 mls @ 75 mls/hr IV .[id number] [facility] Last Admin: 12/09/16 02:20 Dose: 75 mls/hr Insulin Aspart (Novolog) 0 unit SC ACHS [facility] PRN Reason: Protocol Last Admin: 12/09/16 21:37 Dose: Not Given Rosuvastatin Calcium (Crestor) 5 mg PO HS [facility] Last Admin: 12/09/16 21:36 Dose: 5 mg Saccharomyces Boulardii (Florastor) 250 mg PO BID [facility] Last Admin: 12/09/16 17:30 Dose: 250 mg Sucralfate (Carafate Oral Susp) 1 gm PO ACBD [facility] Last Admin: 12/09/16 17:30 Dose: 1 gm - Labs Labs: 12/09/16 14:25 12/09/16 14:25 PT 11.2 SECONDS (9.7-12.2) 12/08/16 07:12 INR 1.0 12/08/16 07:12 APTT 30 SECONDS (21-34) 12/08/16 07:12 - Constitutional Appears: Non-toxic, No Acute Distress - Head Exam Head Exam: ATRAUMATIC, NORMAL INSPECTION, NORMOCEPHALIC - Eye Exam Eye Exam: EOMI, Normal appearance, PERRL - ENT Exam ENT Exam: Mucous Membranes Moist - Neck Exam Neck Exam: Full ROM - Respiratory Exam Respiratory Exam: NORMAL BREATHING PATTERN. absent: Wheezes - Cardiovascular Exam Cardiovascular Exam: +S1, +S2 - GI/Abdominal Exam GI & Abdominal Exam: Soft - Extremities Exam Extremities Exam: Normal Capillary Refill, Normal Inspection - Back Exam Back Exam: Full ROM - Neurological Exam Neurological Exam: Alert, Awake, Oriented x3 - Psychiatric Exam Psychiatric exam: Normal Affect, Normal Mood - Skin Skin Exam: Dry, Intact, Normal Color, Warm Assessment and Plan - Assessment and Plan (Free Text) Assessment: Anemia Likely Secondary to GI Bleed Stool Occult positive received 1 u of blood, no complications GI Consult - Dr. Walker (please see full report) -EGD on 12/08 -Med size hiatal hernia, stomach normal, duodenum normal Colonoscopy on Sunday -Cancer Markers CEA, 19-9, CA 125 all negative -Iron Studies Fe, TIBC, and Ferritin all WNL, Fe%Sat 12 low Acute Renal Failure Likely secondary to dehydration (decreasd intake 1 day prior to presentation secondary to nausea/vomiting) Patient had normal BUN/Cr in October 2016 BUN/Cr 72/1.8 on admission BUN/Cr improving Continue to monitor NS at 75 ml/hr HOLD Lasix F/U CT Abdomen/Pelvis -No SBO, please see full report F/U Consult Nephrology Dr. Ford Hyperkalemia resolved Abdominal Distention CT Abdomen/Pelvis -No SBO, left renal complex cyst, please see full report Renal US please see full report -mult left renal cysts -[id number] hypoechoic region in left kidney UTI She has a history of Bladder Retention but is urinating fine on her own presently. Please note she was discharged to home on on last admission 10/15/16 with Brown Catheter secondary to high bladder urine residuals. UA showed LE + and WBC + Urine Culture E. Coli resistant to Cipro and Bactrim on Ceftriaxone Flomax 0.4 mg PO 1x/day DM 1 HgB A1C 8.1 on prior admission 10/15/16 RISS Accuchecks Hx CAD HOLD ASA and Plavix due to the Anemia Echo 2016 was essentially normal Crestor 5 mg PO QHS Hx HTN Blood Pressure eis 106/41 Holding Hydralazine, Norvasc, Valsartan, and Lasix Prophylactic Measure SCDs: NO chemical anticoagulation at this time PT/OT- F/U <Max Carmona - Last Filed: 01/17/17 16:38> Objective - Vital Signs/Intake and Output Vital Signs (last 24 hours): Temp Pulse Resp BP Pulse Ox 98.2 F 78 20 156/53 H 97 12/12/16 15:55 12/12/16 15:55 12/12/16 15:55 12/12/16 15:55 12/12/16 15:55 - Labs Labs: 12/12/16 11:54 12/12/16 11:54 PT 11.2 SECONDS (9.7-12.2) 12/08/16 07:12 INR 1.0 12/08/16 07:12 APTT 30 SECONDS (21-34) 12/08/16 07:12 Attending/Attestation - Attestation I have personally seen and examined this patient.: Yes I have fully participated in the care of the patient.: Yes I have reviewed all pertinent clinical information, including history, physical exam and plan: Yes Notes (Text): Patient Seen and examined with the resident. Agree with the resident's evaluation, assessment and plan. Anemia Likely Secondary to GI Bleed Acute Renal Failure Likely secondary to dehydration (decreasd intake 1 day prior to presentation secondary to nausea/vomiting) Hyperkalemia resolved UTI
[2016-12-10] MEDS: Sodium Chloride 0.9% 1,000 ML IV SCH ×3 (03:00→23:06)
[2016-12-10] MEDS: Sucralfate 1 gm/10 ml Oral Susp UD PO SCH ×2 (06:34→17:30)
[2016-12-10 08:37] LABS: BASO % 0.8 % (0.0-2.0); EOS # 0.3 K/uL (0.0-0.7); EOS % 5.9 % (0.0-4.0); HEMATOCRIT 29.9 % (34.0-47.0); LYMPH # 1.8 K/uL (1.0-4.3); LYMPH % 31.8 % (20.0-40.0); MEAN CELL VOLUME 87.6 fL (81.0-99.0); MEAN CORPUSCULAR HEMOGLOBIN 28.8 pg (27.0-31.0); MEAN CORPUSCULAR HGB CONC 32.9 g/dL (33.0-37.0); MEAN PLATELET VOLUME 8.9 fL (7.2-11.7); MONO # 0.7 K/uL (0.0-0.8); MONO % 11.8 % (0.0-10.0); WHITE BLOOD COUNT 5.8 K/uL (4.8-10.8)
[2016-12-10] MEDS: (Novolog) Insulin Aspart, Recombinant 100 u/ml 10 ml vial SC SCH ×4 (08:45→23:19)
[2016-12-10 09:00] LABS: CHLORIDE 102 mmol/L (98-107); POTASSIUM 4.2 mmol/L (3.6-5.2); SODIUM 141 mmol/L (132-148)
[2016-12-10 09:02] LABS: GFR AFRICAN-AMERICAN > 60
[2016-12-10 09:03] LABS: ALB/GLOB RATIO 1.5 (1.0-2.1); ALKALINE PHOSPHATASE 49 U/L (38-126); ALT/SGPT 21 U/L (9-52); AST/SGOT 22 U/L (14-36); BILIRUBIN,TOTAL 0.4 mg/dL (0.2-1.3); BLOOD UREA NITROGEN 22 mg/dL (7-17); CARBON DIOXIDE 24 mmol/L (22-30); GLUCOSE,RANDOM 155 mg/dL (65-105); PHOSPHOROUS 2.8 mg/dL (2.5-4.5); TOTAL PROTEIN 6.5 g/dL (6.3-8.3)
[2016-12-10 09:04] LABS: CALCIUM 8.3 mg/dl (8.6-10.4); MAGNESIUM 1.7 mg/dL (1.6-2.3)
[2016-12-10] MEDS: Saccharomyces Boulardi 250 mg Cap PO SCH ×2 (09:05→17:30)
[2016-12-10] MEDS: cefTRIAXone IV 1 gm in Dextros 50 ML IVPB SCH (09:05)
--- NOTE | 2016-12-10 09:21 | PN ---
DATE: 12/10/2016 LOCATION: 664, bed B. This is an 86-year-old female, seen and examined in rounds without significant clinical changes. Paulette erating oral intake well with subsequent improvement of her respiratory status. The entire chart is reviewed including, but not limited to, the most recent lab and radiology study r esults as well as the most recent medical events. Most recent lab results showed low hemoglobin and hematocrit with blood glucose level of 168, but wit h normal liver function test. PHYSICAL EXAMINATION: GENERAL: An 86-year-old female, appeared to be awake, alert. VITAL SIGNS: Afebrile with pulse of 64, respiratory rate 20-22 with blood pressure of 144/60. HEENT: Showed pale, dry oral mucoid membrane. Nonicteric sclerae. LUNGS: Few scattered crepitation, decreased air entry at bases. HEART: Positive S1 and S2. ABDOMEN: Soft. Bowel sounds are present. No mass or organomegaly. No rebound tenderness or guardi ng. EXTREMITIES: Without significant edema, clubbing or cyanosis. NEUROLOGIC: No reported new neurological deficits, sensory or motor. Upper endoscopy pathology report is still pending. IMPRESSION: 1. Reexacerbation of peptic ulcer disease. 2. Renal insufficiency, improving. 3. Known history of diabetes mellitus, hypertension as well as coronary artery disease. 4. Known history of hyperlipidemia, osteoporosis with chronic lower back pain syndrome. 5. Status post cardiac stent insertion. 6. Renal complex cystic lesions, to be followed up by nephrology and urology customer sales consultant. 7. Recent history of urinary tract infection. SUGGESTION: 1. Agree with your plan. 2. Guaiac all the stool daily x 3. 3. Follow up on cancer markers including CEA. 4. Further recommendation to follow. Rigoberto Walker MD cc: 14 TT: 12/10/2016 09:21:06 Confirmation # [id number] Dictation # [id number]
[2016-12-10] MEDS: Ferric Sodium Gluconat Complex 62.5 mg/5 ml Vial IVPB SCH (10:46)
[2016-12-11] MEDS: Sucralfate 1 gm/10 ml Oral Susp UD PO SCH ×2 (06:44→18:45)
[2016-12-11 07:31] LABS: CHLORIDE 103 mmol/L (98-107)
[2016-12-11 07:32] LABS: POTASSIUM 4.4 mmol/L (3.6-5.2); SODIUM 140 mmol/L (132-148)
[2016-12-11 07:33] LABS: BASO # 0.1 K/uL (0.0-0.2); BASO % 1.2 % (0.0-2.0); EOS # 0.4 K/uL (0.0-0.7); EOS % 5.6 % (0.0-4.0); HEMATOCRIT 30.4 % (34.0-47.0); MEAN CELL VOLUME 87.9 fL (81.0-99.0); MEAN CORPUSCULAR HEMOGLOBIN 28.8 pg (27.0-31.0); MEAN CORPUSCULAR HGB CONC 32.7 g/dL (33.0-37.0); MEAN PLATELET VOLUME 8.9 fL (7.2-11.7); MONO # 0.7 K/uL (0.0-0.8); MONO % 11.8 % (0.0-10.0); RED CELL DISTRIBUTION WIDTH 14.1 % (11.5-14.5); WHITE BLOOD COUNT 6.3 K/uL (4.8-10.8)
[2016-12-11 07:34] LABS: GFR AFRICAN-AMERICAN > 60
[2016-12-11 07:35] LABS: ALB/GLOB RATIO 1.4 (1.0-2.1); ALKALINE PHOSPHATASE 49 U/L (38-126); ALT/SGPT 22 U/L (9-52); AST/SGOT 22 U/L (14-36); BILIRUBIN,TOTAL 0.5 mg/dL (0.2-1.3); BLOOD UREA NITROGEN 20 mg/dL (7-17); CALCIUM 8.4 mg/dl (8.6-10.4); CARBON DIOXIDE 25 mmol/L (22-30); GLUCOSE,RANDOM 158 mg/dL (65-105); TOTAL PROTEIN 6.7 g/dL (6.3-8.3)
[2016-12-11 07:36] LABS: MAGNESIUM 1.7 mg/dL (1.6-2.3)
[2016-12-11] MEDS: (Novolog) Insulin Aspart, Recombinant 100 u/ml 10 ml vial SC SCH ×4 (07:55→21:49)
[2016-12-11] MEDS: Saccharomyces Boulardi 250 mg Cap PO SCH ×2 (09:01→18:45)
[2016-12-11] MEDS: cefTRIAXone IV 1 gm in Dextros 50 ML IVPB SCH (09:02)
[2016-12-11] MEDS ORDERED: POLYETHYLENE GLYCOL 3350 17 GM/Dose PACKET PO ONE (12:03)
[2016-12-11] MEDS: Ferric Sodium Gluconat Complex 62.5 mg/5 ml Vial IVPB SCH (12:06)
[2016-12-11] MEDS ORDERED: Peg-Electrolyte Oral Soln 4L (Golytely) PO ONE (14:12)
[2016-12-11] MEDS ORDERED: Bisacodyl 5mg EC Tab PO ONE (17:00)
--- NOTE | 2016-12-11 20:44 | CP.PCM.PN ---
<RonniepascualMaycoln - Last Filed: 12/11/16 20:45> Subjective - Date & Time of Evaluation Date of Evaluation: 12/11/16 Time of Evaluation: 07:34 - Subjective Subjective: Pt seen and examined. Pt reports that she does not have any abdominal pain. She reports that she is constipated. Pt denies fever, chills, chest pain, shortness of breath, nausea, and vomiting. Objective - Vital Signs/Intake and Output Vital Signs (last 24 hours): Temp Pulse Resp BP Pulse Ox 98 F 64 18 154/67 H 96 12/11/16 16:00 12/11/16 16:00 12/11/16 16:00 12/11/16 16:00 12/11/16 16:00 - Medications Medications: Current Medications Acetaminophen (Tylenol 325mg Tab) 650 mg PO Q6 PRN PRN Reason: Pain, moderate (4-7) Last Admin: 12/10/16 23:21 Dose: 650 mg Docusate Sodium (Colace) 100 mg PO DAILY [facility] Last Admin: 12/11/16 12:27 Dose: 100 mg Ferric Sodium Gluconate Complex (Ferrlecit) 125 mg IVPB DAILY [facility] Stop: 12/15/16 10:01 Last Admin: 12/11/16 12:06 Dose: Not Given Ceftriaxone Sodium (Rocephin Iv 1 Gm Duplex) 50 mls @ 100 mls/hr IVPB Q24H [facility] Last Admin: 12/11/16 09:02 Dose: 100 mls/hr Insulin Aspart (Novolog) 0 unit SC ACHS [facility] PRN Reason: Protocol Last Admin: 12/11/16 17:30 Dose: 1 unit Rosuvastatin Calcium (Crestor) 5 mg PO HS [facility] Last Admin: 12/10/16 23:05 Dose: 5 mg Saccharomyces Boulardii (Florastor) 250 mg PO BID [facility] Last Admin: 12/11/16 18:45 Dose: 250 mg Sucralfate (Carafate Oral Susp) 1 gm PO ACBD [facility] Last Admin: 12/11/16 18:45 Dose: 1 gm - Labs Labs: 12/11/16 07:12 12/11/16 07:12 PT 11.2 SECONDS (9.7-12.2) 12/08/16 07:12 INR 1.0 12/08/16 07:12 APTT 30 SECONDS (21-34) 12/08/16 07:12 - Constitutional Appears: No Acute Distress - Head Exam Head Exam: ATRAUMATIC, NORMOCEPHALIC - Eye Exam Eye Exam: EOMI, PERRL - ENT Exam ENT Exam: Mucous Membranes Moist - Neck Exam Neck Exam: Full ROM - Respiratory Exam Respiratory Exam: Clear to Ausculation Bilateral. absent: Rales, Rhonchi, Wheezes - Cardiovascular Exam Cardiovascular Exam: +S1. absent: Gallop, Rubs - GI/Abdominal Exam GI & Abdominal Exam: Soft, Normal Bowel Sounds. absent: Distended, Rigid, Tenderness - Extremities Exam Extremities Exam: Full ROM. absent: Pedal Edema - Neurological Exam Neurological Exam: Alert, Awake, Oriented x3 - Psychiatric Exam Psychiatric exam: Normal Mood - Skin Skin Exam: Normal Color, Warm Assessment and Plan - Assessment and Plan (Free Text) Assessment: Anemia Likely Secondary to GI Bleed Stool Occult positive H/H: 10.0/30.4 CT Abd/Pelvis: no evidence of small bowel obstruction (please see full report_#) GI, Dr. Walker, consulted. Help appreciated. EGD - Medium sized hiatal hernia, stomach normal, duodenum normal (please see full report) Cancer markers all within normal limits Colonoscopy planned for tomorrow as per Dr. Walker Bowel prep NPO after midnight UTI: Urine Culture - positive for E. Coli Rocephin I gm IV qg Diabetes Mellitus: RISS Accuchecks Coronary Artery Disease: Hold aspirin and plavix due to anemia HTN: Blood Pressure fluctuating between slightly elevated and low Holding Hydralazine, Norvasc, Valsartan, and Lasix Prophylactic Measures: DVT: SCDs, chemical anticoagulation contraindicated due to anemia <Yasmani Waldrop M - Last Filed: 12/12/16 17:32> Objective - Vital Signs/Intake and Output Vital Signs (last 24 hours): Temp Pulse Resp BP Pulse Ox 98.2 F 78 20 156/53 H 97 12/12/16 15:55 12/12/16 15:55 12/12/16 15:55 12/12/16 15:55 12/12/16 15:55 Intake and Output: 12/12/16 12/12/16 06:59 18:59 Intake Total 4000 Balance 4000 - Labs Labs: 12/12/16 11:54 12/12/16 11:54 PT 11.2 SECONDS (9.7-12.2) 12/08/16 07:12 INR 1.0 12/08/16 07:12 APTT 30 SECONDS (21-34) 12/08/16 07:12 Attending/Attestation - Attestation I have personally seen and examined this patient.: Yes I have fully participated in the care of the patient.: Yes I have reviewed all pertinent clinical information, including history, physical exam and plan: Yes Notes (Text): 12/12/16 17:32 Patient was seen and examined at bedside with the resident Patient appears comfortable No complaint of further GI bleed Plan for colonoscopy in the morning I agree with the above history and physical and assessment/plan by the resident.
[2016-12-12] MEDS: Sucralfate 1 gm/10 ml Oral Susp UD PO SCH (08:00)
[2016-12-12] MEDS: (Novolog) Insulin Aspart, Recombinant 100 u/ml 10 ml vial SC SCH ×2 (08:00→12:14)
[2016-12-12] MEDS ORDERED: Propofol 10 mg/ml Inj (20 ML) ONE (08:55)
[2016-12-12] MEDS ORDERED: Lactated Ringer's 500 ML IV ONE ×2 (09:05)
[2016-12-12] MEDS ORDERED: Glucagon Recombinant 1 mg Inj ONE (09:08)
[2016-12-12] MEDS: Saccharomyces Boulardi 250 mg Cap PO SCH (10:55)
[2016-12-12] MEDS: Ferric Sodium Gluconat Complex 62.5 mg/5 ml Vial IVPB SCH (10:55)
[2016-12-12] MEDS: cefTRIAXone IV 1 gm in Dextros 50 ML IVPB SCH (10:58)
--- NOTE | 2016-12-12 11:46 | CP.PCM.DIS ---
<Sylvain Gutierrez - Last Filed: 12/12/16 14:23> Provider - Provider Date of Admission: 12/05/16 21:34 Attending physician: Damon Kearney MD Time Spent in preparation of Discharge (in minutes): 36 Hospital Course - Lab Results Lab Results: Micro Results 12/10/16 08:00 Urine,Clean Catch Urine Culture - Final No Growth (<1,000 CFU/ML) Most Recent Lab Values WBC 6.3 K/uL (4.8-10.8) 12/11/16 07:12 RBC 3.46 Mil/uL (3.80-5.20) L 12/11/16 07:12 Hgb 10.0 g/dL (11.0-16.0) L 12/11/16 07:12 Hct 30.4 % (34.0-47.0) L 12/11/16 07:12 MCV 87.9 fL (81.0-99.0) 12/11/16 07:12 MCH 28.8 pg (27.0-31.0) 12/11/16 07:12 MCHC 32.7 g/dL (33.0-37.0) L 12/11/16 07:12 RDW 14.1 % (11.5-14.5) 12/11/16 07:12 Plt Count 187 K/uL (130-400) 12/11/16 07:12 MPV 8.9 fL (7.2-11.7) 12/11/16 07:12 Neut % (Auto) 49.4 % (50.0-75.0) L 12/11/16 07:12 Lymph % (Auto) 32.0 % (20.0-40.0) 12/11/16 07:12 [place] % (Auto) 11.8 % (0.0-10.0) H 12/11/16 07:12 Eos % (Auto) 5.6 % (0.0-4.0) H 12/11/16 07:12 Baso % (Auto) 1.2 % (0.0-2.0) 12/11/16 07:12 Neut # 3.1 K/uL (1.8-7.0) 12/11/16 07:12 Lymph # 2.0 K/uL (1.0-4.3) 12/11/16 07:12 [place] # 0.7 K/uL (0.0-0.8) 12/11/16 07:12 Eos # 0.4 K/uL (0.0-0.7) 12/11/16 07:12 Baso # 0.1 K/uL (0.0-0.2) 12/11/16 07:12 PT 11.2 SECONDS (9.7-12.2) 12/08/16 07:12 INR 1.0 12/08/16 07:12 APTT 30 SECONDS (21-34) 12/08/16 07:12 Sodium 140 mmol/L (132-148) 12/11/16 07:12 Potassium 4.4 mmol/L (3.6-5.2) 12/11/16 07:12 Chloride 103 mmol/L (98-107) 12/11/16 07:12 Carbon Dioxide 25 mmol/L (22-30) 12/11/16 07:12 Anion Gap 16 (10-20) 12/11/16 07:12 BUN 20 mg/dL (7-17) H 12/11/16 07:12 Creatinine 0.8 MG/DL (0.7-1.2) 12/11/16 07:12 Est GFR ( Amer) > 60 12/11/16 07:12 Est GFR (Non-Af Amer) > 60 12/11/16 07:12 POC Glucose (mg/dL) 189 mg/dL (65-110) H 12/12/16 06:46 Random Glucose 158 mg/dL (65-105) H 12/11/16 07:12 Calcium 8.4 mg/dl (8.6-10.4) L 12/11/16 07:12 Phosphorus 3.0 mg/dL (2.5-4.5) 12/11/16 07:12 Magnesium 1.7 mg/dL (1.6-2.3) 12/11/16 07:12 Iron 39 ug/dL (37-170) 12/06/16 13:52 TIBC 325 ug/dL (250-450) 12/06/16 13:52 % Saturation 12 (20-55) L 12/06/16 13:52 Ferritin 9.0 ng/mL 12/06/16 07:08 Total Bilirubin 0.5 mg/dL (0.2-1.3) 12/11/16 07:12 AST 22 U/L (14-36) 12/11/16 07:12 ALT 22 U/L (9-52) 12/11/16 07:12 Alkaline Phosphatase 49 U/L (38-126) 12/11/16 07:12 Troponin I < 0.0120 ng/mL (0.00-0.120) 12/05/16 19:29 Total Protein 6.7 g/dL (6.3-8.3) 12/11/16 07:12 Albumin 3.9 g/dL (3.5-5.0) 12/11/16 07:12 Globulin 2.8 gm/dL (2.2-3.9) 12/11/16 07:12 Albumin/Globulin Ratio 1.4 (1.0-2.1) 12/11/16 07:12 Lipase 51 U/L (23-300) 12/05/16 19:29 Alpha Fetoprotein 1.9 ng/mL (0.0-7.5) 12/07/16 17:11 Carcinoembryonic Ag 2.8 ng/mL (0-3.0) 12/07/16 17:11 CA 19-9 Antigen 30.1 U/mL (0-37) 12/07/16 17:11 CA 125 Antigen 8.2 U/mL (0-35) 12/07/16 17:11 Vitamin B12 756 pg/mL (239-931) 12/07/16 06:12 Folate > 20.0 ng/mL 12/07/16 06:12 Urine Color Yellow (YELLOW) 12/05/16 21:14 Urine Clarity Hazy (Clear) 12/05/16 21:14 Urine pH 5.0 (5.0-8.0) 12/05/16 21:14 Ur Specific [place] 1.008 (1.003-1.030) 12/05/16 21:14 Urine Protein Negative mg/dL (NEGATIVE) 12/05/16 21:14 Urine Glucose (UA) Normal mg/dL (Normal) 12/05/16 21:14 Urine Ketones Negative mg/dL (NEGATIVE) 12/05/16 21:14 Urine Blood Negative (NEGATIVE) 12/05/16 21:14 Urine Nitrate Negative (NEGATIVE) 12/05/16 21:14 Urine Bilirubin Negative (NEGATIVE) 12/05/16 21:14 Urine Urobilinogen Normal mg/dL (0.2-1.0) 12/05/16 21:14 Ur Leukocyte Esterase 1+ Branden/uL (Negative) H 12/05/16 21:14 Urine WBC (Auto) 38 /hpf (0-5) H 12/05/16 21:14 Urine RBC (Auto) < 1 /hpf (0-3) 12/05/16 21:14 Ur Squamous Epith Cells < 1 /hpf (0-5) 12/05/16 21:14 Urine Bacteria Mod (<OCC) H 12/05/16 21:14 Urine Osmolality 341 mosm/kg (300-1000) 12/07/16 07:58 Ur Random Creatinine 21.5 mg/dL 12/07/16 07:58 Ur Random Sodium 105 mmol/L 12/07/16 07:58 Ur Random Potassium 16.1 mmol/L 12/07/16 07:58 Urine Chloride 71 mmol/L (32-290) 12/06/16 13:09 Stool Occult Blood Positive (NEGATIVE) H 12/11/16 07:18 Blood Type O NEGATIVE 12/05/16 20:52 Antibody Screen Negative 12/05/16 20:52 - Hospital Course Hospital Course: HPI: 86yo Female with PMHx abdominal hernia, gastritis, anxiety, asthma, COPD, DM, CAD, HTN - presents c/o abdominal pain since earlier this morning with two episodes of associated nausea and vomiting. Due to the pain, she has not eaten in over 1 day. She admits the abdominal pain came on suddenly, has been constant and dull throughout the day, and is rated at 5/10. She attributes this to her gastritis and history of constipation. She describes the vomit as watery/ brown. Patient admits that she did not change her diet or her routine. She has been having daily hard bowel movements, attributed to her history of constipation, and denies blood in the stool or toilet. Patient also complains of chronic musculoskeletal issues, most recently lower back pain for the past week. Patient is a poor historian, and could not give clear answers to questions despite use of translation (patient is also hard of hearing). Hospital Course: Pt presented with anemia and positive stool occult blood. Hemoglobin was 7.4 on admission. Pt received a type and cross and was transfused with one unit of prbcs. GI, Dr. Walker, was consulted. CT of abdomen and pelvis was done which revealed no evidence of small bowel obstruction ( please see full report). EGD was performed which showed medium sized hiatal hernia, patches of inflammation, otherwise no active bleeding (please see full report). Colonoscopy was performed which revealed many small and large mouthed diverticula in the sigmoid and descending colon, internal hemorrhoids, but no evidence of bleeding (please see full report). Hgb remained stable. Pt also presented with blood cultures positive for E.Coli. Pt was started on rocephin. Aspirin and plavix were held. Blood pressure medicaitons were held as well due to pt being hypotensive intially and then normotensive. Pt was cleared for discharge by gastroenterology. Pt advised to follow up as an outpatient with PMD , Dr. Gomez. Discharge Exam - Head Exam Head Exam: ATRAUMATIC, NORMOCEPHALIC - Eye Exam Eye Exam: EOMI, PERRL - ENT Exam ENT Exam: Mucous Membranes Moist. absent: Mucous Membranes Dry - Neck Exam Neck exam: Full Rom - Respiratory Exam Respiratory Exam: Clear to PA & Lateral. absent: Rales, Rhonchi, Wheezes - Cardiovascular Exam Cardiovascular Exam: +S1, +S2 - GI/Abdominal Exam GI & Abdominal Exam: Soft. absent: Distended, Guarding, Rigid, Tenderness - Extremities Exam Extremities exam: full ROM - Neurological Exam Neurological exam: Alert, Oriented x3 - Psychiatric Exam Psychiatric exam: Normal Affect, Normal Mood - Skin Skin Exam: Normal Color, Warm Discharge Plan - Follow Up Plan Condition: STABLE Disposition: HOME/ ROUTINE Patient education suggested?: Yes Instructions: Colonoscopy (DC), Dehydration (DC), Acute Kidney Injury (DC), Urinary Tract Infection in Women (DC), Heart Healthy Diet (DC), Hyperkalemia (DC ), Upper Endoscopy (DC), Anemia (DC) Additional Instructions: Please follow up with primary medical doctor, Dr. Gomez, within one week. Please repeat urine culture with Dr. Gomez. Please follow up with a renal ultrasound in 6 months. Please also follow up with journal entry audit clerk, Dr. Walker , within one month. Please resume all home medications. Please return to the hospital if symptoms worsen or new symptoms arise. Referrals: Ramila Walker [Staff Provider] - Chuck Gomez MD [Staff Provider] - <PalmaAntwonYasmani M - Last Filed: 12/12/16 18:14> Provider - Provider Date of Admission: 12/05/16 21:34 Attending physician: Damon Kearney MD Hospital Course - Lab Results Lab Results: Micro Results 12/10/16 08:00 Urine,Clean Catch Urine Culture - Final No Growth (<1,000 CFU/ML) Most Recent Lab Values WBC 9.7 K/uL (4.8-10.8) D 12/12/16 11:54 RBC 3.31 Mil/uL (3.80-5.20) L 12/12/16 11:54 Hgb 9.5 g/dL (11.0-16.0) L 12/12/16 11:54 Hct 29.0 % (34.0-47.0) L 12/12/16 11:54 MCV 87.7 fL (81.0-99.0) 12/12/16 11:54 MCH 28.7 pg (27.0-31.0) 12/12/16 11:54 MCHC 32.7 g/dL (33.0-37.0) L 12/12/16 11:54 RDW 14.3 % (11.5-14.5) 12/12/16 11:54 Plt Count 175 K/uL (130-400) 12/12/16 11:54 MPV 8.8 fL (7.2-11.7) 12/12/16 11:54 Neut % (Auto) 65.5 % (50.0-75.0) 12/12/16 11:54 Lymph % (Auto) 21.8 % (20.0-40.0) 12/12/16 11:54 [place] % (Auto) 9.5 % (0.0-10.0) 12/12/16 11:54 Eos % (Auto) 2.4 % (0.0-4.0) 12/12/16 11:54 Baso % (Auto) 0.8 % (0.0-2.0) 12/12/16 11:54 Neut # 6.3 K/uL (1.8-7.0) 12/12/16 11:54 Lymph # 2.1 K/uL (1.0-4.3) 12/12/16 11:54 [place] # 0.9 K/uL (0.0-0.8) H 12/12/16 11:54 Eos # 0.2 K/uL (0.0-0.7) 12/12/16 11:54 Baso # 0.1 K/uL (0.0-0.2) 12/12/16 11:54 PT 11.2 SECONDS (9.7-12.2) 12/08/16 07:12 INR 1.0 12/08/16 07:12 APTT 30 SECONDS (21-34) 12/08/16 07:12 Sodium 139 mmol/L (132-148) 12/12/16 11:54 Potassium 3.8 mmol/L (3.6-5.2) 12/12/16 11:54 Chloride 103 mmol/L (98-107) 12/12/16 11:54 Carbon Dioxide 26 mmol/L (22-30) 12/12/16 11:54 Anion Gap 14 (10-20) 12/12/16 11:54 BUN 21 mg/dL (7-17) H 12/12/16 11:54 Creatinine 0.9 MG/DL (0.7-1.2) 12/12/16 11:54 Est GFR ( Amer) > 60 12/12/16 11:54 Est GFR (Non-Af Amer) 59 12/12/16 11:54 POC Glucose (mg/dL) 227 mg/dL (65-110) H 12/12/16 11:57 Random Glucose 219 mg/dL (65-105) H 12/12/16 11:54 Calcium 8.5 mg/dl (8.6-10.4) L 12/12/16 11:54 Phosphorus 2.6 mg/dL (2.5-4.5) 12/12/16 11:54 Magnesium 1.5 mg/dL (1.6-2.3) L 12/12/16 11:54 Iron 39 ug/dL (37-170) 12/06/16 13:52 TIBC 325 ug/dL (250-450) 12/06/16 13:52 % Saturation 12 (20-55) L 12/06/16 13:52 Ferritin 9.0 ng/mL 12/06/16 07:08 Total Bilirubin < 0.1 mg/dL (0.2-1.3) L 12/12/16 11:54 AST 27 U/L (14-36) 12/12/16 11:54 ALT 27 U/L (9-52) 12/12/16 11:54 Alkaline Phosphatase 47 U/L (38-126) 12/12/16 11:54 Troponin I < 0.0120 ng/mL (0.00-0.120) 12/05/16 19:29 Total Protein 6.2 g/dL (6.3-8.3) L 12/12/16 11:54 Albumin 3.5 g/dL (3.5-5.0) 12/12/16 11:54 Globulin 2.6 gm/dL (2.2-3.9) 12/12/16 11:54 Albumin/Globulin Ratio 1.3 (1.0-2.1) 12/12/16 11:54 Lipase 51 U/L (23-300) 12/05/16 19:29 Alpha Fetoprotein 1.9 ng/mL (0.0-7.5) 12/07/16 17:11 Carcinoembryonic Ag 2.8 ng/mL (0-3.0) 12/07/16 17:11 CA 19-9 Antigen 30.1 U/mL (0-37) 12/07/16 17:11 CA 125 Antigen 8.2 U/mL (0-35) 12/07/16 17:11 Vitamin B12 756 pg/mL (239-931) 12/07/16 06:12 Folate > 20.0 ng/mL 12/07/16 06:12 Urine Color Yellow (YELLOW) 12/05/16 21:14 Urine Clarity Hazy (Clear) 12/05/16 21:14 Urine pH 5.0 (5.0-8.0) 12/05/16 21:14 Ur Specific [place] 1.008 (1.003-1.030) 12/05/16 21:14 Urine Protein Negative mg/dL (NEGATIVE) 12/05/16 21:14 Urine Glucose (UA) Normal mg/dL (Normal) 12/05/16 21:14 Urine Ketones Negative mg/dL (NEGATIVE) 12/05/16 21:14 Urine Blood Negative (NEGATIVE) 12/05/16 21:14 Urine Nitrate Negative (NEGATIVE) 12/05/16 21:14 Urine Bilirubin Negative (NEGATIVE) 12/05/16 21:14 Urine Urobilinogen Normal mg/dL (0.2-1.0) 12/05/16 21:14 Ur Leukocyte Esterase 1+ Branden/uL (Negative) H 12/05/16 21:14 Urine WBC (Auto) 38 /hpf (0-5) H 12/05/16 21:14 Urine RBC (Auto) < 1 /hpf (0-3) 12/05/16 21:14 Ur Squamous Epith Cells < 1 /hpf (0-5) 12/05/16 21:14 Urine Bacteria Mod (<OCC) H 12/05/16 21:14 Urine Osmolality 341 mosm/kg (300-1000) 12/07/16 07:58 Ur Random Creatinine 21.5 mg/dL 12/07/16 07:58 Ur Random Sodium 105 mmol/L 12/07/16 07:58 Ur Random Potassium 16.1 mmol/L 12/07/16 07:58 Urine Chloride 71 mmol/L (32-290) 12/06/16 13:09 Stool Occult Blood Positive (NEGATIVE) H 12/11/16 07:18 Blood Type O NEGATIVE 12/05/16 20:52 Antibody Screen Negative 12/05/16 20:52 Attending/Attestation - Attestation I have personally seen and examined this patient.: Yes I have fully participated in the care of the patient.: Yes I have reviewed all pertinent clinical information, including history, physical exam and plan: Yes Notes (Text): 12/12/16 18:14 Patient was seen and examined at bedside today with the resident Patient is status post EGD and colonoscopy Hemoglobin is stable next and no further episode of for nausea or vomiting. No GI bleeding. [facility] Patient will be discharged to [facility] Discharge plan discussed with the patient and she verbalized understanding I agree with the above discharge note by the resident.
[2016-12-12 12:06] LABS: BASO # 0.1 K/uL (0.0-0.2); BASO % 0.8 % (0.0-2.0); EOS # 0.2 K/uL (0.0-0.7); EOS % 2.4 % (0.0-4.0); LYMPH # 2.1 K/uL (1.0-4.3); LYMPH % 21.8 % (20.0-40.0); MEAN CELL VOLUME 87.7 fL (81.0-99.0); MEAN CORPUSCULAR HEMOGLOBIN 28.7 pg (27.0-31.0); MEAN CORPUSCULAR HGB CONC 32.7 g/dL (33.0-37.0); MEAN PLATELET VOLUME 8.8 fL (7.2-11.7); MONO # 0.9 K/uL (0.0-0.8); MONO % 9.5 % (0.0-10.0); RED CELL DISTRIBUTION WIDTH 14.3 % (11.5-14.5); WHITE BLOOD COUNT 9.7 K/uL (4.8-10.8)
[2016-12-12 12:17] LABS: CHLORIDE 103 mmol/L (98-107)
[2016-12-12 12:18] LABS: SODIUM 139 mmol/L (132-148)
[2016-12-12 12:19] LABS: POTASSIUM 3.8 mmol/L (3.6-5.2)
[2016-12-12 12:21] LABS: ALB/GLOB RATIO 1.3 (1.0-2.1); AST/SGOT 27 U/L (14-36); BILIRUBIN,TOTAL < 0.1 mg/dL (0.2-1.3); BLOOD UREA NITROGEN 21 mg/dL (7-17); CALCIUM 8.5 mg/dl (8.6-10.4); PHOSPHOROUS 2.6 mg/dL (2.5-4.5)
[2016-12-12 12:22] LABS: MAGNESIUM 1.5 mg/dL (1.6-2.3)
[2016-12-12 12:44] LABS: CARBON DIOXIDE 26 mmol/L (22-30); GFR AFRICAN-AMERICAN > 60; TOTAL PROTEIN 6.2 g/dL (6.3-8.3)
[2016-12-12 12:45] LABS: ALKALINE PHOSPHATASE 47 U/L (38-126); ALT/SGPT 27 U/L (9-52); GLUCOSE,RANDOM 219 mg/dL (65-105)
[2016-12-12 16:16] VITALS: BP 156/53; PULSE 78; RESP 20; TEMP 98.2; O2SAT 97
== END 2016-12-12 16:25 | disposition home or self-care (01) | DRG 683 ==
LOC: C.ER 18:35 → C.9E 21:34 → C.6T 22:26
PROVIDERS: ADMIT Internal Medicine; ATTEND Internal Medicine
PROC: 30233N1 Transfusion of Nonautologous Red Blood Cells into Peripheral Vein, Percutaneous Approach (ICD-10-PCS; principal; 2016-12-06)
PROC: 0DB68ZX Excision of Stomach, Via Natural or Artificial Opening Endoscopic, Diagnostic (ICD-10-PCS; 2016-12-08)
PROC: 0DBK8ZX Excision of Ascending Colon, Via Natural or Artificial Opening Endoscopic, Diagnostic (ICD-10-PCS; 2016-12-12)
DX: N17.9 Acute kidney failure, unspecified (principal); N39.0 Urinary tract infection, site not specified; E87.5 Hyperkalemia; E11.9 Type 2 diabetes mellitus without complications; B96.20 Unspecified Escherichia coli [E. coli] as the cause of diseases classified elsewhere; I10 Essential (primary) hypertension; K92.1 Melena; D50.0 Iron deficiency anemia secondary to blood loss (chronic); K29.00 Acute gastritis without bleeding; E86.0 Dehydration; K29.80 Duodenitis without bleeding; K58.1 Irritable bowel syndrome with constipation; K57.30 Diverticulosis of large intestine without perforation or abscess without bleeding; K64.8 Other hemorrhoids; D63.8 Anemia in other chronic diseases classified elsewhere; I25.10 Atherosclerotic heart disease of native coronary artery without angina pectoris; J45.909 Unspecified asthma, uncomplicated; J44.9 Chronic obstructive pulmonary disease, unspecified; K44.9 Diaphragmatic hernia without obstruction or gangrene; E78.5 Hyperlipidemia, unspecified; G89.4 Chronic pain syndrome; M54.9 Dorsalgia, unspecified; M17.12 Unilateral primary osteoarthritis, left knee; M19.032 Primary osteoarthritis, left wrist; M81.0 Age-related osteoporosis without current pathological fracture; M06.9 Rheumatoid arthritis, unspecified; H40.9 Unspecified glaucoma; H26.9 Unspecified cataract; F41.9 Anxiety disorder, unspecified; Z87.891 Personal history of nicotine dependence; Z95.5 Presence of coronary angioplasty implant and graft; Z79.4 Long term (current) use of insulin

== ENCOUNTER 2017-01-03 14:19 | Inpatient (IN) | payer MEDICARE, MEDICAID ==
[2017-01-03 14:36] VITALS: BMI 28.3
[2017-01-03] MEDS ORDERED: DiphenhydrAMINE 50 mg/ml Inj IVP STA (14:36)
[2017-01-03] MEDS ORDERED: Lactated Ringer's 1,000 ML IV STA (14:36)
[2017-01-03] MEDS ORDERED: DiphenhydrAMINE 50 mg/ml Inj ONE (14:56)
[2017-01-03] MEDS ORDERED: Lactated Ringer's 1,000 ML ONE (14:56)
--- NOTE | 2017-01-03 15:19 | C.PDOC ---
History Of Present Illness 86 y/o female, with past medical history of migraines, c/o pain to the top of her head. Denies injury. She reports no relief with usual migraine medication. Patient denies any associated symptoms, including fever, visual changes, vomiting, or weakness. Patient with history of cardiac disease, cardiac stents, stroke, diabetes, and hypertension. Daughter reports diminished appetite but notes she has been tolerating meals. Also reports difficulty sleeping. Time Seen by Provider: 01/03/17 14:26 Chief Complaint (Nursing): Headache History Per: Patient History/Exam Limitations: no limitations Onset/Duration Of Symptoms: Days Current Symptoms Are (Timing): Still Present Quality: "Pain" Associated Symptoms: denies: Photophobia, Blurred Vision, Nausea, Vomiting, Extremity Weakness Recent travel outside of the [place]: No Past Medical History Reviewed: Historical Data, Nursing Documentation, Vital Signs Vital Signs: Last Vital Signs Temp 99 F 01/03/17 14:23 Pulse 72 01/03/17 14:23 Resp 13 01/03/17 14:23 BP 116/52 L 01/03/17 14:23 Pulse Ox 97 01/03/17 15:48 - Medical History PMH: Anxiety, Arthritis (L KNEE; L WRIST), Asthma, Back Problems (HX CHRONIC BACK PAIN), CAD, COPD, Diabetes, Fractures (left wrist), Gastritis, HTN, Hypercholesterolemia, Osteoporosis, Rheumatoid Arthritis Surgical History: Coronary Stent - [facility] Procedures APPLICATION OF SPLINT (06/18/14) EXCISION OF ASCENDING COLON, ENDO, DIAGN (12/05/16) EXCISION OF STOMACH, ENDO, DIAGN (12/05/16) FLUOROSCOPY OF LEFT HEART USING LOW OSMOLAR CONTRAST (02/05/16) GAIT TRAINING/AMBULAT TREATMENT USING ASSIST EQUIPMENT (11/08/15) INTRODUCE ANTI-INFLAM IN PERIPH NRV, PLEXI, PERC (11/08/15) INTRODUCE REGIONAL ANESTH IN PERIPH NRV, PLEXI, PERC (11/08/15) MEASURE OF CARDIAC SAMPL & PRESSURE, L HEART, PERC APPROACH (02/05/16) NEBULIZER THERAPY (06/16/14) REPAIR LEFT UPPER ARM TENDON, OPEN APPROACH (11/08/15) REPAIR OF HAMMER TOE (07/17/13) REPOSITION LEFT HUMERAL SHAFT WITH INT FIX, OPEN APPROACH (11/08/15) TRANSFUSE NONAUT RED BLOOD CELLS IN PERIPH VEIN, PERC (12/05/16) Family History: States: Unknown Family Hx - Social History Hx Tobacco Use: No Hx Alcohol Use: No Hx Substance Use: No - Immunization History Hx Tetanus Toxoid Vaccination: Yes (3 mos. ago) Hx Influenza Vaccination: No Hx Pneumococcal Vaccination: No Review Of Systems Except As Marked, All Systems Reviewed And Found Negative. Constitutional: Negative for: Fever, Chills Cardiovascular: Negative for: Chest Pain Respiratory: Negative for: Cough, Shortness of Breath Gastrointestinal: Negative for: Nausea, Vomiting Musculoskeletal: Negative for: Neck Pain Skin: Negative for: Rash Neurological: Positive for: Headache. Negative for: Dizziness Physical Exam - Physical Exam Appears: Non-toxic, No Acute Distress Skin: Warm, Dry Head: Atraumatic, Normacephalic, Tenderness (to top of the head), No Swelling, No Abrasion, No Laceration, Other (no ecchymosis or bruising visualized) Eye(s): bilateral: Normal Inspection, PERRL, EOMI Oral Mucosa: Moist Neck: No Midline Cervical Tenderness, No Paracervical Tenderness, Supple Chest: Symmetrical Cardiovascular: Rhythm Regular Respiratory: Normal Breath Sounds, No Rales, No Rhonchi, No Wheezing Gastrointestinal/Abdominal: Soft, No Tenderness Back: Normal Inspection Extremity: Normal ROM, No Tenderness, Capillary Refill (< 2 sec. ), No Deformity , Other (ecchymoses to bilateral thighs) Extremity: Bilateral: Normal Color And Temperature Neurological/Psych: Oriented x3, Normal Speech, Normal Cognition ED Course And Treatment - Laboratory Results Result Diagrams: 01/03/17 15:13 01/03/17 15:13 Lab Interpretation: Abnormal (BUN and Cr markedly elevated compared to 12/12. BUN now 62 (was 21) Cr 1.8 (was 0.9), K+ 5.5) O2 Sat by Pulse Oximetry: 97 (RA) Pulse Ox Interpretation: Normal - CT Scan/US CT Head Other Rad Studies (CT/US): Read By Radiologist, Radiology Report Reviewed CT/US Interpretation: Accession No. : [id number]. Patient Name / ID : KAT BLANDON / [id number]. Exam Date : 01/03/2017 15:29:12 ( Approved ). Study Comment : Sex / Age : F / 86Y. Creator : Barbara Graham MD. Dictator : Barbara Graham MD. Bead Wrapper : Salt Cutter : Barbara Graham MD. Approver2 : Report Date : 01/03/2017 15:36:31. My Comment : . PROCEDURE: CT HEAD WITHOUT CONTRAST. HISTORY: Headache. COMPARISON: Noncontrast head CT performed 10/19/16. TECHNIQUE: Axial computed tomography images were obtained through the head/brain without intravenous contrast. Radiation dose: Total exam DLP = 732.70 mGy-cm. This CT exam was performed using one or more of the following dose reduction techniques: Automated exposure control, adjustment of the mA and/or kV according to patient size, and/or use of iterative reconstruction technique. FINDINGS: HEMORRHAGE: No intracranial hemorrhage. BRAIN: Diffuse atrophy with prominence of the ventricles and sulci noted. No mass effect or edema. Dense calcification along the anterior falx. Moderate scattered periventricular and subcortical white matter hypodensities, which are nonspecific, but often seen with chronic microvascular ischemic disease. Please note that MRI with diffusion imaging is more sensitive in the detection of acute ischemic event. VENTRICLES: No hydrocephalus. CALVARIUM: Unremarkable. PARANASAL SINUSES: Re-identified tiny osteoma along the right ethmoid air cells measuring approximately 3 mm. No significant inflammatory changes. MASTOID AIR CELLS: Unremarkable as visualized. No inflammatory changes. OTHER FINDINGS: Opacification of the right external auditory canal, may reflect cerumen. IMPRESSION: Nonspecific white matter changes. Please note that MRI with diffusion imaging is more sensitive in the detection of acute ischemic event. Additional findings as above. Progress Note: CT head, bloodwork ordered. Treated with Benadryl, Reglan, and Ringer's lactate IV. Reevaluation Time: 15:51 Reassessment Condition: Unchanged (Still c/o headache, unchanged.) - Physician Consult Information Time Consulting Physician Contacted: 15:51 Physician Contacted: Hieu Jalloh Outcome Of Conversation: Patient to be admitted for new onset renal failure with hyperkalemia. Disposition - Disposition Disposition: HOSPITALIZED Disposition Time: 15:55 Condition: FAIR - POA Present On Arrival: None - Clinical Impression Clinical Impression: Headache, Worsening renal function - Scribe Statement The provider has reviewed the documentation as recorded by the Scribe Wilmar Moss All medical record entries made by the Scribe were at my direction and personally dictated by me. I have reviewed the chart and agree that the record accurately reflects my personal performance of the history, physical exam, medical decision making, and the department course for this patient. I have also personally directed, reviewed, and agree with the discharge instructions and disposition.
[2017-01-03 15:20] LABS: BASO # 0.1 K/uL (0.0-0.2); BASO % 0.7 % (0.0-2.0); EOS # 0.3 K/uL (0.0-0.7); EOS % 3.5 % (0.0-4.0); HEMATOCRIT 30.8 % (34.0-47.0); LYMPH # 1.9 K/uL (1.0-4.3); LYMPH % 24.6 % (20.0-40.0); MEAN CELL VOLUME 88.9 fL (81.0-99.0); MEAN CORPUSCULAR HEMOGLOBIN 29.5 pg (27.0-31.0); MEAN CORPUSCULAR HGB CONC 33.1 g/dL (33.0-37.0); MEAN PLATELET VOLUME 9.2 fL (7.2-11.7); MONO # 0.7 K/uL (0.0-0.8); MONO % 9.1 % (0.0-10.0); NRBC % 0.1 % (0.0-2.0); RED CELL DISTRIBUTION WIDTH 14.3 % (11.5-14.5); WHITE BLOOD COUNT 7.9 K/uL (4.8-10.8)
[2017-01-03 15:37] LABS: POTASSIUM 5.5 mmol/L (3.6-5.2)
--- NOTE | 2017-01-03 15:38 | CT ---
PROCEDURE: CT HEAD WITHOUT CONTRAST. HISTORY: Headache COMPARISON: Noncontrast head CT performed 10/19/16 TECHNIQUE: Axial computed tomography images were obtained through the head/brain without intravenous contrast. Radiation dose: Total exam DLP = 732.70 mGy-cm. This CT exam was performed using one or more of the following dose reduction techniques: Automated exposure control, adjustment of the mA and/or kV according to patient size, and/or use of iterative reconstruction technique. FINDINGS: HEMORRHAGE: No intracranial hemorrhage. BRAIN: Diffuse atrophy with prominence of the ventricles and sulci noted. No mass effect or edema. Dense calcification along the anterior falx. Moderate scattered periventricular and subcortical white matter hypodensities, which are nonspecific, but often seen with chronic microvascular ischemic disease. Please note that MRI with diffusion imaging is more sensitive in the detection of acute ischemic event. VENTRICLES: No hydrocephalus. CALVARIUM: Unremarkable. PARANASAL SINUSES: Re-identified tiny osteoma along the right ethmoid air cells measuring approximately 3 mm. No significant inflammatory changes. MASTOID AIR CELLS: Unremarkable as visualized. No inflammatory changes. OTHER FINDINGS: Opacification of the right external auditory canal, may reflect cerumen. IMPRESSION: Nonspecific white matter changes. Please note that MRI with diffusion imaging is more sensitive in the detection of acute ischemic event. Additional findings as above.
[2017-01-03 15:39] LABS: ALB/GLOB RATIO 1.5 (1.0-2.1); BILIRUBIN,TOTAL 0.5 mg/dL (0.2-1.3); TOTAL PROTEIN 6.9 g/dL (6.3-8.3)
[2017-01-03 15:40] LABS: CALCIUM 8.2 mg/dl (8.6-10.4)
--- NOTE | 2017-01-03 15:58 | CP.PCM.HP ---
<Iris Fried - Last Filed: 01/03/17 17:52> History of Present Illness - History of Present Illness History of Present Illness: CC: headache for 1 week HPI: 86yo female with PMHx abdominal hernia, gastritis, anxiety, asthma, COPD, DM, CAD, HTN - presents c/o headache for 1 week which progressively worsened. Patient reports headache is 8/10 and intermittent in nature. Patient has tried alleve and excedrin with no relief. She has a history of migraines and years ago she used to have associated nausea and vomiting but on this admission she denied both. She also denied any fever, chills, photophobia, neck stiffness, changes in vision, dizziness, chest pain, palpitations, cough, abd pain, bowel/ bladder complaints. Patient has chronic constipation with 2 BMs/week. Patient also complains of burning and stinging pain in her legs bilaterally with no swelling. Patient's last meal was this AM. Patient last admitted 12/12/16 for anemia likely secondary to GI bleed and a UTI. PMD: Dr. Gomez PMH: abdominal hernia, gastritis, anxiety, asthma, COPD, DM, CAD, HTN Medications: Crestor 5mg po daily, Pepcid 20mg po daily, Amlodipine 10mg po daily, ASA 81mg po daily, Plavix 75mg po daily, Valsartan 320mg po daily, Hydralazine 25mg po BID FHx: mother- asthma, heart disease, at age 92 PSHx: hysterectomy and oopherectomy, cataract surgery, Cardiac cath 02/2016 with stents SHx: smoked 1ppd x 50 yrs, quit 20 yrs ago; social drinker in the past, denies current use. denies illicit drug use. Lives alone. Has homemaker. ROS: denied: fever, chills, diaphoresis, weakness, dizziness, chest pain, palpitations, change in vision, change in hearing, cough, abd pain, nausea, vomiting, bowel/bladder complaints, swelling in legs b/l, back pain, rash, bruising, bleeding, recent travel, recent sickness, weight changes admits: headache [resolved on admisison], SOB, leg pain described as burning/ stinging b/l ED Course: CT head negative. Patient was given LR @ 500cc bolus, Benadryl 25mg IVP once, Toradol 15mg ivp once, Reglan 10mg ivp once, and headache resolved Present on Admission - Present on Admission Any Indicators Present on Admission: No Review of Systems - Constitutional Constitutional: As Per HPI. absent: Chills, Fever - EENT Eyes: As Per HPI. absent: Blurred Vision, Pain Ears: As Per HPI. absent: Dizziness Nose/Mouth/Throat: As Per HPI. absent: Sore Throat - Cardiovascular Cardiovascular: As Per HPI. absent: Dyspnea, Leg Edema - Respiratory Respiratory: As Per HPI, Dyspnea on Exertion. absent: Cough, Dyspnea, Chest Congestion - Gastrointestinal Gastrointestinal: As Per HPI. absent: Abdominal Pain, Constipation, Diarrhea, Nausea, Vomiting - Genitourinary Genitourinary: As Per HPI. absent: Dysuria, Urinary Frequency - Musculoskeletal Musculoskeletal: As Per HPI, Tingling (pain in legs b/l). absent: Back Pain, Numbness - Integumentary Integumentary: As Per HPI. absent: Dry Skin, Rash - Neurological Neurological: As Per HPI, Headaches, Tingling (b/l legs). absent: Dizziness, Weakness - Psychiatric Psychiatric: As Per HPI. absent: Anxiety, Depression - Endocrine Endocrine: As Per HPI. absent: Palpitations, Polydipsia, Polyphagia, Polyuria - Hematologic/Lymphatic Hematologic: As Per HPI. absent: Easy Bleeding, Easy Bruising, Lymphadenopathy Past Patient History - Infectious Disease Hx of Infectious Diseases: None - Tetanus Immunizations Tetanus Immunization: Unknown - Past Medical History & Family History Past Medical History?: Yes - Past Social History Smoking Status: Never Smoked - CARDIAC Hx Hypercholesterolemia: Yes Hx Hypertension: Yes - PULMONARY Hx Asthma: Yes Hx Chronic Obstructive Pulmonary Disease (COPD): Yes - NEUROLOGICAL Hx Seizures: No - HEENT Hx HEENT Problems: Yes Hx Cataracts: Yes (right eye) Hx Glaucoma: Yes (left eye) - RENAL Hx Chronic Kidney Disease: No - HEMATOLOGICAL/ONCOLOGICAL Hx Human Immunodeficiency Virus (HIV): No - INTEGUMENTARY Hx Dermatological Problems: No - MUSCULOSKELETAL/RHEUMATOLOGICAL Hx Arthritis: Yes (L KNEE; L WRIST) Hx Fractures: Yes (left wrist) Hx Osteoporosis: Yes Hx Rheumatoid Arthritis: Yes - GASTROINTESTINAL Hx Gastritis: Yes - GENITOURINARY/GYNECOLOGICAL Hx Sexually Transmitted Disorders: No - PSYCHIATRIC Hx Anxiety: Yes Hx Substance Use: No - SURGICAL HISTORY Hx Coronary Stent: Yes - ANESTHESIA Hx Anesthesia: Yes Hx Anesthesia Reactions: No Hx Malignant Hyperthermia: No Meds Allergies/Adverse Reactions: Allergies Allergy/AdvReac Type Severity Reaction Status Date / Time No Known Allergies Allergy Verified 01/03/17 14:41 Physical Exam - Constitutional Appears: Well, Non-toxic, No Acute Distress - Head Exam Head Exam: ATRAUMATIC, NORMAL INSPECTION, NORMOCEPHALIC - Eye Exam Eye Exam: EOMI, Normal appearance, PERRL. absent: Conjunctival injection, Scleral icterus Pupil Exam: NORMAL ACCOMODATION - ENT Exam ENT Exam: Mucous Membranes Moist - Neck Exam Neck exam: Positive for: Full Rom, Normal Inspection. Negative for: Tenderness - Respiratory Exam Respiratory Exam: Clear to Auscultation Bilateral, NORMAL BREATHING PATTERN. absent: Accessory Muscle Use, Chest Wall Tenderness, Rales, Rhonchi, Wheezes, Respiratory Distress - Cardiovascular Exam Cardiovascular Exam: REGULAR RHYTHM, RRR, +S1, +S2. absent: Systolic Murmur - GI/Abdominal Exam GI & Abdominal Exam: Normal Bowel Sounds, Soft. absent: Firm, Guarding, Rigid, Tenderness - Extremities Exam Extremities exam: Positive for: normal capillary refill, normal inspection, tenderness, pedal pulses present. Negative for: pedal edema - Back Exam Back exam: NORMAL INSPECTION. absent: rash noted, tenderness - Neurological Exam Neurological exam: Alert, Oriented x3 - Psychiatric Exam Psychiatric exam: Normal Affect, Normal Mood - Skin Skin Exam: Dry, Intact, Normal Color, Warm Results - Vital Signs Recent Vital Signs: Last Vital Signs Temp 99 F 01/03/17 14:23 Pulse 72 01/03/17 14:23 Resp 13 01/03/17 14:23 BP 116/52 L 01/03/17 14:23 Pulse Ox 97 01/03/17 15:55 - Labs Result Diagrams: 01/03/17 15:13 01/03/17 15:13 Labs: Laboratory Results - last 24 hr 01/03/17 01/03/17 15:13 15:13 WBC 7.9 RBC 3.46 L Hgb 10.2 L Hct 30.8 L MCV 88.9 MCH 29.5 MCHC 33.1 RDW 14.3 Plt Count 167 MPV 9.2 Neut % (Auto) 62.1 Lymph % (Auto) 24.6 Bath % (Auto) 9.1 Eos % (Auto) 3.5 Baso % (Auto) 0.7 Neut # 4.9 Lymph # 1.9 Bath # 0.7 Eos # 0.3 Baso # 0.1 Sodium 138 Potassium 5.5 H Chloride 100 Carbon Dioxide 26 Anion Gap 18 BUN 62 H Creatinine 1.8 H Est GFR ( Amer) 32 Est GFR (Non-Af Amer) 27 Random Glucose 193 H Calcium 8.2 L Total Bilirubin 0.5 AST 35 ALT 17 Alkaline Phosphatase 47 Total Protein 6.9 Albumin 4.2 Globulin 2.8 Albumin/Globulin Ratio 1.5 Assessment & Plan - Assessment and Plan (Free Text) Assessment: 86yo female with PMHx abdominal hernia, gastritis, anxiety, asthma, COPD, DM, CAD, HTN - presents c/o headache for 1 week which progressively worsened Plan: Headache -CT head negative -Toradol 15mg IVP one time PRN for headache Hx of CAD -ASA 81mg po daily -Plavix 75mg po daily -Crestor 5mg po hs -Norvasc 10mg po daily -ASA 81mg po daily -Hydralazine 25mg po daily Hx of HTN -Norvasc 10mg po daily -ASA 81mg po daily -Hydralazine 25mg po daily Hx of Gastritis -Pepcid 20mg po daily Hx of DM2 -Accucheck -RISS PPX -SCDs -Pepcid 20mg po daily -Heparin 5000U SC Q12 -Heart healthy diet -NS @ 70cc/hr Plan discussed with Dr. Yeimi Fried PGY1 <Hieu Jalloh - Last Filed: 01/04/17 14:20> Results - Vital Signs Recent Vital Signs: Last Vital Signs Temp 98.4 F 01/04/17 07:00 Pulse 63 01/04/17 07:00 Resp 16 01/04/17 07:00 BP 121/61 01/04/17 07:00 Pulse Ox 97 01/04/17 07:00 - Labs Result Diagrams: 01/04/17 08:57 01/04/17 08:57 Labs: Laboratory Results - last 24 hr 01/03/17 01/04/17 01/04/17 21:17 07:10 08:57 WBC 6.0 RBC 3.48 L Hgb 10.1 L Hct 30.8 L MCV 88.6 MCH 29.0 MCHC 32.7 L RDW 14.3 Plt Count 161 MPV 9.3 Neut % (Auto) 50.4 Lymph % (Auto) 33.3 Bath % (Auto) 10.0 Eos % (Auto) 5.5 H Baso % (Auto) 0.8 Neut # 3.0 Lymph # 2.0 Bath # 0.6 Eos # 0.3 Baso # 0.1 Sodium Potassium Chloride Carbon Dioxide Anion Gap BUN Creatinine Est GFR ( Amer) Est GFR (Non-Af Amer) POC Glucose (mg/dL) 320 H 201 H Random Glucose Calcium Phosphorus Magnesium Total Bilirubin AST ALT Alkaline Phosphatase Total Protein Albumin Globulin Albumin/Globulin Ratio 01/04/17 01/04/17 08:57 11:17 WBC RBC Hgb Hct MCV MCH MCHC RDW Plt Count MPV Neut % (Auto) Lymph % (Auto) Bath % (Auto) Eos % (Auto) Baso % (Auto) Neut # Lymph # Bath # Eos # Baso # Sodium 139 Potassium 4.4 Chloride 100 Carbon Dioxide 29 Anion Gap 14 BUN 47 H Creatinine 1.7 H Est GFR ( Amer) 34 Est GFR (Non-Af Amer) 28 POC Glucose (mg/dL) 284 H Random Glucose 226 H Calcium 8.5 L Phosphorus 3.9 Magnesium 1.8 Total Bilirubin 0.5 AST 23 ALT 13 Alkaline Phosphatase 49 Total Protein 6.7 Albumin 4.0 Globulin 2.7 Albumin/Globulin Ratio 1.5 Attending/Attestation - Attestation I have personally seen and examined this patient.: Yes I have fully participated in the care of the patient.: Yes I have reviewed all pertinent clinical information: Yes Notes (Text): 01/04/17 14:18 Medical attending: Patient was seen and examined by me, agree with the above note by medical education manager. The patient was brought in with the chief complaint of ongoing headache that was described as very similar to previous history of migraines. By the time we saw the patient in the emergency room her family members were present in the explained that the migraines had resolved and that the patient was feeling well. She was no longer having any headaches recheck denied blurry vision she denied chest pain, denied shortness of breath, denied abdominal pain. She did have some elevation of her BUN/creatinine and creatinine. The creatinine was 1.8, per review of old medical records the baseline creatinine runs anywhere between 1.3 and 1.4. We explained to the family members we will continue to give some intravenous fluids, she is on ARB class medications so will hold that for a few days as well if she does well we'll consider discharging the patient the following day Thank you very much, Hieu Jalloh
[2017-01-03] MEDS: Sodium Chloride 0.9% 1,000 ML IV SCH (18:45)
[2017-01-03] MEDS: (Novolog) Insulin Aspart, Recombinant 100 u/ml 10 ml vial SC SCH (21:44)
--- NOTE | 2017-01-04 07:28 | RAD ---
HISTORY: assess for fluid overload and congestion COMPARISON: No prior. FINDINGS: LUNGS: Biapical pleural thickening. Vertically oriented linear increased markings at the right lung apex which may represent focal scarring and or atelectasis. Additional etiologies not excluded. Not significantly changed since 12/05/2016. Upper lobe granulomatous changes. Diffuse increased interstitial lung markings. Mild patchy increased markings at the left lung base. PLEURA: As above. CARDIOVASCULAR: Normal. OSSEOUS STRUCTURES: No significant abnormalities. VISUALIZED UPPER ABDOMEN: Normal. OTHER FINDINGS: None. IMPRESSION: Biapical pleural thickening. Vertically oriented linear increased markings at the right lung apex which may represent focal scarring and or atelectasis. Additional etiologies not excluded. Not significantly changed since 12/05/2016. Upper lobe granulomatous changes. Diffuse increased interstitial lung markings. Mild patchy increased markings at the left lung base.
[2017-01-04] MEDS: (Novolog) Insulin Aspart, Recombinant 100 u/ml 10 ml vial SC SCH ×2 (08:08→12:07)
[2017-01-04 08:47] VITALS: BP 121/61; PULSE 63; RESP 16; TEMP 98.4; O2SAT 97
[2017-01-04 09:10] LABS: BASO # 0.1 K/uL (0.0-0.2); BASO % 0.8 % (0.0-2.0); EOS # 0.3 K/uL (0.0-0.7); EOS % 5.5 % (0.0-4.0); HEMATOCRIT 30.8 % (34.0-47.0); LYMPH % 33.3 % (20.0-40.0); MEAN CELL VOLUME 88.6 fL (81.0-99.0); MEAN CORPUSCULAR HGB CONC 32.7 g/dL (33.0-37.0); MEAN PLATELET VOLUME 9.3 fL (7.2-11.7); MONO # 0.6 K/uL (0.0-0.8); RED CELL DISTRIBUTION WIDTH 14.3 % (11.5-14.5)
[2017-01-04 09:21] LABS: POTASSIUM 4.4 mmol/L (3.6-5.2)
[2017-01-04 09:23] LABS: BILIRUBIN,TOTAL 0.5 mg/dL (0.2-1.3)
[2017-01-04 09:24] LABS: ALB/GLOB RATIO 1.5 (1.0-2.1); PHOSPHOROUS 3.9 mg/dL (2.5-4.5); TOTAL PROTEIN 6.7 g/dL (6.3-8.3)
[2017-01-04 09:25] LABS: CALCIUM 8.5 mg/dl (8.6-10.4); MAGNESIUM 1.8 mg/dL (1.6-2.3)
[2017-01-04] MEDS: Sodium Chloride 0.9% 1,000 ML IV SCH (09:58)
--- NOTE | 2017-01-04 10:16 | CP.PCM.DIS ---
Provider - Provider Date of Admission: 01/03/17 17:48 Attending physician: Hieu Jalloh DO Primary care physician: WINTER Gomez Time Spent in preparation of Discharge (in minutes): 45 Hospital Course - Lab Results Lab Results: Most Recent Lab Values WBC 6.0 K/uL (4.8-10.8) 01/04/17 08:57 RBC 3.48 Mil/uL (3.80-5.20) L 01/04/17 08:57 Hgb 10.1 g/dL (11.0-16.0) L 01/04/17 08:57 Hct 30.8 % (34.0-47.0) L 01/04/17 08:57 MCV 88.6 fL (81.0-99.0) 01/04/17 08:57 MCH 29.0 pg (27.0-31.0) 01/04/17 08:57 MCHC 32.7 g/dL (33.0-37.0) L 01/04/17 08:57 RDW 14.3 % (11.5-14.5) 01/04/17 08:57 Plt Count 161 K/uL (130-400) 01/04/17 08:57 MPV 9.3 fL (7.2-11.7) 01/04/17 08:57 Neut % (Auto) 50.4 % (50.0-75.0) 01/04/17 08:57 Lymph % (Auto) 33.3 % (20.0-40.0) 01/04/17 08:57 [place] % (Auto) 10.0 % (0.0-10.0) 01/04/17 08:57 Eos % (Auto) 5.5 % (0.0-4.0) H 01/04/17 08:57 Baso % (Auto) 0.8 % (0.0-2.0) 01/04/17 08:57 Neut # 3.0 K/uL (1.8-7.0) 01/04/17 08:57 Lymph # 2.0 K/uL (1.0-4.3) 01/04/17 08:57 [place] # 0.6 K/uL (0.0-0.8) 01/04/17 08:57 Eos # 0.3 K/uL (0.0-0.7) 01/04/17 08:57 Baso # 0.1 K/uL (0.0-0.2) 01/04/17 08:57 Sodium 139 mmol/L (132-148) 01/04/17 08:57 Potassium 4.4 mmol/L (3.6-5.2) 01/04/17 08:57 Chloride 100 mmol/L (98-107) 01/04/17 08:57 Carbon Dioxide 29 mmol/L (22-30) 01/04/17 08:57 Anion Gap 14 (10-20) 01/04/17 08:57 BUN 47 mg/dL (7-17) H 01/04/17 08:57 Creatinine 1.7 MG/DL (0.7-1.2) H 01/04/17 08:57 Est GFR ( Amer) 34 01/04/17 08:57 Est GFR (Non-Af Amer) 28 01/04/17 08:57 POC Glucose (mg/dL) 201 mg/dL (65-110) H 01/04/17 07:10 Random Glucose 226 mg/dL (65-105) H 01/04/17 08:57 Calcium 8.5 mg/dl (8.6-10.4) L 01/04/17 08:57 Phosphorus 3.9 mg/dL (2.5-4.5) 01/04/17 08:57 Magnesium 1.8 mg/dL (1.6-2.3) 01/04/17 08:57 Total Bilirubin 0.5 mg/dL (0.2-1.3) 01/04/17 08:57 AST 23 U/L (14-36) 01/04/17 08:57 ALT 13 U/L (9-52) 01/04/17 08:57 Alkaline Phosphatase 49 U/L (38-126) 01/04/17 08:57 Total Protein 6.7 g/dL (6.3-8.3) 01/04/17 08:57 Albumin 4.0 g/dL (3.5-5.0) 01/04/17 08:57 Globulin 2.7 gm/dL (2.2-3.9) 01/04/17 08:57 Albumin/Globulin Ratio 1.5 (1.0-2.1) 01/04/17 08:57 - Hospital Course Hospital Course: Upon Admission 86yo female with PMHx abdominal hernia, gastritis, anxiety, asthma, COPD, DM, CAD, HTN - presents c/o headache for 1 week which progressively worsened. Patient reports headache is 8/10 and intermittent in nature. Patient has tried alleve and excedrin with no relief. She has a history of migraines and years ago she used to have associated nausea and vomiting but on this admission she denied both. She also denied any fever, chills, photophobia, neck stiffness, changes in vision, dizziness, chest pain, palpitations, cough, abd pain, bowel/ bladder complaints. Patient has chronic constipation with 2 BMs/week. Patient also complains of burning and stinging pain in her legs bilaterally with no swelling. Patient's last meal was this AM. Patient last admitted 12/12/16 for anemia likely secondary to GI bleed and a UTI. CT head negative. Patient was given LR @ 500cc bolus, Benadryl 25mg IVP once, Toradol 15mg ivp once, Reglan 10mg ivp once, and headache resolve in the ER. Patient was admitted to TELE. On day of discharge patient's symptoms had resolved and patient was deemed medically stable for discharge. 1) Headache: resolved 2) Hx of CAD: restarted home medications but held valsartan 3) Hx of HTN: restarted home medications 4) Hx of gastritis: restarted home medications 5) Hx of DM2: restarted home medications Upon Discharge Patient stable for discharge home as per hospitalist Dr. Jalloh Patient to resume home medications but has been advised to DISCONTINUE taking Valsartan. Patient to follow up with PMD Dr. Gomez within 7 days. Patient to return to ER immediately if symptoms persist or worsen. Instructions discussed in detail with patient who understands and agrees. Discharge Exam - Head Exam Head Exam: ATRAUMATIC, NORMAL INSPECTION, NORMOCEPHALIC - Eye Exam Eye Exam: EOMI, Normal appearance, PERRL. absent: Conjunctival injection, Scleral icterus Pupil Exam: NORMAL ACCOMODATION, PERRL - ENT Exam ENT Exam: Mucous Membranes Moist, Normal Exam - Neck Exam Neck exam: Normal Inspection - Respiratory Exam Respiratory Exam: Clear to PA & Lateral, NORMAL BREATHING PATTERN. absent: Accessory Muscle Use, Rales, Rhonchi, Wheezes, Respiratory Distress - Cardiovascular Exam Cardiovascular Exam: REGULAR RHYTHM, RRR, +S1, +S2. absent: Systolic Murmur - GI/Abdominal Exam GI & Abdominal Exam: Normal Bowel Sounds, Soft. absent: Firm, Guarding, Tenderness - Rectal Exam Rectal Exam: Deferred - Extremities Exam Extremities exam: normal capillary refill, normal inspection, pedal pulses present - Back Exam Back exam: NORMAL INSPECTION. absent: rash noted - Neurological Exam Neurological exam: Alert, CN II-XII Intact, Normal Gait, Oriented x3 - Psychiatric Exam Psychiatric exam: Normal Affect, Normal Mood - Skin Skin Exam: Dry, Intact, Normal Color, Warm Discharge Plan - Follow Up Plan Condition: FAIR Disposition: HOME/ ROUTINE Instructions: Acute Headache (DC) Additional Instructions: Patient stable for discharge home as per hospitalist Dr. Jalloh Patient to resume home medications but has been advised to DISCONTINUE taking Valsartan. Patient to follow up with PMD Dr. Gomez within 7 days. Patient to return to ER immediately if symptoms persist or worsen. Instructions discussed in detail with patient who understands and agrees. Referrals: Chuck Gomez MD [Staff Provider] -
--- NOTE | 2017-01-11 01:26 | CARD ---
APPROVED REPORT EKG Measurement Heart [id number] <Conclusion> Normal sinus rhythm Left bundle branch block Abnormal ECG
== END 2017-01-04 13:00 | disposition home or self-care (01) | DRG 103 ==
LOC: C.ER 14:19 → C.9E 17:48 → C.3T 18:10
PROVIDERS: ADMIT Hospitalist; ATTEND Hospitalist
DX: G43.909 Migraine, unspecified, not intractable, without status migrainosus (principal); E87.5 Hyperkalemia; N19 Unspecified kidney failure; J44.9 Chronic obstructive pulmonary disease, unspecified; E11.9 Type 2 diabetes mellitus without complications; I10 Essential (primary) hypertension; K29.70 Gastritis, unspecified, without bleeding; K59.09 Other constipation; J45.909 Unspecified asthma, uncomplicated; I25.10 Atherosclerotic heart disease of native coronary artery without angina pectoris; M81.0 Age-related osteoporosis without current pathological fracture; F41.9 Anxiety disorder, unspecified; M17.12 Unilateral primary osteoarthritis, left knee; M19.032 Primary osteoarthritis, left wrist; E78.00 Pure hypercholesterolemia, unspecified; Z95.5 Presence of coronary angioplasty implant and graft

== ENCOUNTER 2017-01-11 14:02 | Inpatient (IN) | payer MEDICARE, MEDICAID ==
[2017-01-11 14:03] VITALS: BMI 28.3
--- NOTE | 2017-01-11 16:34 | C.PDOC ---
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 As per family, patient has been falling down a lot recently and was last here January 03 for head injury. Patient states she doesn't remember what happened leading up to falling down. Patient reports pain to right hip, right elbow and head. Daughter with patient states she heard a bang and by the time she got to the bathroom the patient was already awake and is unsure if she was syncopal. Denies fever, chills, vision changes, chest pain, SOB, nausea, vomiting, abdominal pain, neck pain, back pain , headache, weakness or numbness. 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) Location Of Injury: Right: Elbow, Hip Past Medical History Reviewed: Historical Data, Nursing Documentation, Vital Signs Vital Signs: Last Vital Signs Temp 98.2 F 01/11/17 14:05 Pulse 64 01/11/17 17:06 Resp 15 01/11/17 17:06 BP 108/56 L 01/11/17 17:06 Pulse Ox 96 01/11/17 18:10 - Medical History PMH: Anxiety, Arthritis (L KNEE; L WRIST), Asthma, Back Problems (HX CHRONIC BACK PAIN), CAD, COPD, Diabetes, Fractures (left wrist), Gastritis, HTN, Hypercholesterolemia, Osteoporosis, Rheumatoid Arthritis Surgical History: Coronary Stent - [facility] Procedures APPLICATION OF SPLINT (06/18/14) EXCISION OF ASCENDING COLON, ENDO, DIAGN (12/05/16) EXCISION OF STOMACH, ENDO, DIAGN (12/05/16) FLUOROSCOPY OF LEFT HEART USING LOW OSMOLAR CONTRAST (02/05/16) GAIT TRAINING/AMBULAT TREATMENT USING ASSIST EQUIPMENT (11/08/15) INTRODUCE ANTI-INFLAM IN PERIPH NRV, PLEXI, PERC (11/08/15) INTRODUCE REGIONAL ANESTH IN PERIPH NRV, PLEXI, PERC (11/08/15) MEASURE OF CARDIAC SAMPL & PRESSURE, L HEART, PERC APPROACH (02/05/16) NEBULIZER THERAPY (06/16/14) REPAIR LEFT UPPER ARM TENDON, OPEN APPROACH (11/08/15) REPAIR OF HAMMER TOE (07/17/13) REPOSITION LEFT HUMERAL SHAFT WITH INT FIX, OPEN APPROACH (11/08/15) TRANSFUSE NONAUT RED BLOOD CELLS IN PERIPH VEIN, PERC (12/05/16) Family History: States: No Known Family Hx - Social History Hx Tobacco Use: No Hx Alcohol Use: No Hx Substance Use: No - Immunization History Hx Tetanus Toxoid Vaccination: Yes (3 mos. ago) Hx Influenza Vaccination: No ("Not sure'') Hx Pneumococcal Vaccination: No (''Not sure'') Review Of Systems Except As Marked, All Systems Reviewed And Found Negative. Constitutional: Negative for: Fever, Chills Eyes: Negative for: Vision Change Cardiovascular: Negative for: Chest Pain Respiratory: Negative for: Shortness of Breath Gastrointestinal: Negative for: Nausea, Vomiting, Abdominal Pain Musculoskeletal: Positive for: Other ((+) Right hip pain. Right elbow pain. ). Negative for: Neck Pain, Back Pain Neurological: Positive for: Other ((+) Head injury). Negative for: Weakness, Numbness, Headache Physical Exam - Physical Exam Appears: Well, Non-toxic, No Acute Distress, Other (uncomfortable, in pain) Skin: Warm, Dry, No Rash Head: Atraumatic, Normacephalic, No Swelling, No Abrasion, No Laceration Eye(s): bilateral: Normal Inspection, PERRL, EOMI Oral Mucosa: Moist Lips: Normal Appearing Neck: Normal, Normal ROM, Supple Chest: Symmetrical, No Tenderness Cardiovascular: Rhythm Regular, No Murmur Respiratory: Normal Breath Sounds, No Rales, No Wheezing Gastrointestinal/Abdominal: Normal Exam, Soft, No Tenderness, No Guarding, No Rebound Back: Normal Inspection, No CVA Tenderness Extremity: Normal ROM, No Calf Tenderness, Capillary Refill (<2), Other (Right Hip - tenderness, decreased ROM, Swelling and ecchymosis. Right Elbow - no swelling, mild tenderness, able to move. ) Neurological/Psych: Oriented x3, Normal Speech, Normal Motor ED Course And Treatment - Laboratory Results Result Diagrams: 01/11/17 16:44 01/11/17 16:44 ECG: Interpreted By Me, Viewed By Me ECG Rhythm: Sinus Rhythm ECG Interpretation: Abnormal Interpretation Of ECG: LBBB Rate From EC (BPM) O2 Sat by Pulse Oximetry: 96 (RA) Pulse Ox Interpretation: Normal - CT Scan/US CT - Head Other Rad Studies (CT/US): Read By Radiologist, Radiology Report Reviewed CT/US Interpretation: PROCEDURE: CT HEAD WITHOUT CONTRAST. HISTORY: FALL. COMPARISON: Noncontrast head CT performed 01/03/17. TECHNIQUE: Axial computed tomography images were obtained through the head/brain without intravenous contrast. Radiation dose: Total exam DLP = 981.84 mGy-cm. This CT exam was performed using one or more of the following dose reduction techniques: Automated exposure control, adjustment of the mA and/or kV according to patient size, and/or use of iterative reconstruction technique. FINDINGS: HEMORRHAGE: No intracranial hemorrhage. BRAIN: Diffuse atrophy with prominence of the ventricles and sulci noted. No mass effect or edema. Scattered periventricular and subcortical white matter hypodensities, which are nonspecific, but often seen with chronic microvascular ischemic disease. Diffuse atrophy with prominence of the ventricles and sulci noted. VENTRICLES: No hydrocephalus. CALVARIUM: Unremarkable. PARANASAL SINUSES: Unremarkable as visualized. No significant inflammatory changes. MASTOID AIR CELLS: Unremarkable as visualized. No inflammatory changes. OTHER FINDINGS: Opacification of the right external auditory canal, likely cerumen. IMPRESSION: Generalized atrophy. Nonspecific white matter changes. CT - Lower Extremity Bilateral Other Rad Studies (CT/US): Read By Radiologist, Radiology Report Reviewed CT/US Interpretation: EXAM: CT Left Lower Extremity Without Intravenous Contrast, Hip. CLINICAL HISTORY: 86 years old, female; Pain; Hip; Bilateral; Additional info: Hips/pelvis pain, r>l. TECHNIQUE: Axial computed tomography images of the left hip without intravenous contrast. This CT exam was. performed using one or more of the following dose reduction techniques: automated exposure. control, adjustment of the mA and/or kV according to patient size, and/or use of iterative. reconstruction technique. Coronal and sagittal reformatted images were created and reviewed. COMPARISON: No relevant prior studies available. FINDINGS: Bones/joints: Unremarkable. No acute fracture. No dislocation. Soft tissues: Unremarkable. IMPRESSION: Normal left hip CT. EXAM: CT Right Lower Extremity Without Intravenous Contrast, Hip. CLINICAL HISTORY: 86 years old, female; Pain; Hip; Bilateral; Additional info: Hips/pelvis pain, r>l. TECHNIQUE: Axial computed tomography images of the right hip without intravenous contrast. This CT exam was. performed using one or more of the following dose reduction techniques: automated exposure. control, adjustment of the mA and/or kV according to patient size, and/or use of iterative. reconstruction technique. Coronal and sagittal reformatted images were created and reviewed. EXAM DATE/TIME: 2016 4:13 PM. COMPARISON: No relevant prior studies available. FINDINGS: Bones/joints: No acute fracture. There may be an old right greater trochanteric fracture with mild. deformity. No dislocation. Soft tissues: There is a small fat-containing umbilical hernia. Subcutaneous contusion overlying the. right greater trochanter. Bowel: Apparent wall thickening in the ascending colon may be secondary to incomplete filling. versus an underlying mass. There is a prominent amount of retained gas and stool in the colon. There is diverticular disease of the colon, without evidence of acute diverticulitis. No perforation, or. abscess. No signs or history of bleeding provided. No obstruction. Appendix: A normal appendix is identified. Reproductive: The patient is status post hysterectomy. No adenexal masses are seen. IMPRESSION: There appears to be an old right greater trochanter fracture which is healed, with overlying acute. subcutaneous contusion/hematoma. No definite acute fracture seen. Recommend clinical correlation. Apparent wall thickening in the ascending colon may be secondary to incomplete filling versus an. underlying mass. Moderate constipation. Other findings as described. Progress Note: Patient still in pain, can't ambulate. Family concern is that patient is unable to ambulate and is not safe to be d/c home. 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 Patient was accepted to Med/surg for admission and possible rehab dispo. Medical Decision Making Medical Decision Making: PLAN: * CT - Head, Lower Extremity * X-Ray - Right Elbow * CXR * EKG * CBC * CMP * Morphine IVP Disposition - Disposition Disposition: HOSPITALIZED Disposition Time: 18:55 Condition: FAIR - Clinical Impression Clinical Impression: Recurrent falls, Contusion, hip, Head contusion, Elbow contusion - PA / PORTER HEAD / Resident Statement MD/DO has reviewed & agrees with the documentation as recorded. - Scribe Statement The provider has reviewed the documentation as recorded by the Scribe Tara Lambert All medical record entries made by the Shashiibmargo were at my direction and personally dictated by me. I have reviewed the chart and agree that the record accurately reflects my personal performance of the history, physical exam, medical decision making, and the department course for this patient. I have also personally directed, reviewed, and agree with the discharge instructions and disposition. Decision To Admit - Pt Status Changed To: Hospital Disposition Of: Inpatient - Admit Certification Admit to Inpatient:: After my assessment, the patient will require hospitalization for at least two midnights. This is because of the severity of symptoms shown, intensity of services needed, and/or the medical risk in this patient being treated as an outpatient. - InPatient: Physician Admission Certification: I certify that this patient requires 2 or more midnights of care for the following reason:: Patient will need more than 2 days of inpatient since she is not able to ambulate and may need rehab placement. - . Bed Request Type: Regular Admitting Physician: Torie Wright Patient Diagnosis: Recurrent falls, Contusion, hip, Head contusion, Elbow contusion, Unable to ambulate
[2017-01-11 16:55] LABS: BASO # 0.1 K/uL (0.0-0.2); BASO % 0.5 % (0.0-2.0); EOS # 0.2 K/uL (0.0-0.7); EOS % 2.2 % (0.0-4.0); HEMATOCRIT 32.1 % (34.0-47.0); LYMPH % 19.9 % (20.0-40.0); MEAN CELL VOLUME 88.9 fL (81.0-99.0); MEAN CORPUSCULAR HEMOGLOBIN 28.8 pg (27.0-31.0); MEAN CORPUSCULAR HGB CONC 32.3 g/dL (33.0-37.0); MONO # 0.7 K/uL (0.0-0.8); MONO % 7.4 % (0.0-10.0); RED CELL DISTRIBUTION WIDTH 14.5 % (11.5-14.5); WHITE BLOOD COUNT 9.9 K/uL (4.8-10.8)
[2017-01-11 17:12] LABS: POTASSIUM 5.3 mmol/L (3.6-5.2)
[2017-01-11 17:14] LABS: ALB/GLOB RATIO 1.7 (1.0-2.1); BILIRUBIN,TOTAL 0.5 mg/dL (0.2-1.3); TOTAL PROTEIN 6.8 g/dL (6.3-8.3)
[2017-01-11 17:15] LABS: CALCIUM 8.8 mg/dl (8.6-10.4)
--- NOTE | 2017-01-11 17:15 | CT ---
PROCEDURE: CT HEAD WITHOUT CONTRAST. HISTORY: FALL COMPARISON: Noncontrast head CT performed 01/03/17 TECHNIQUE: Axial computed tomography images were obtained through the head/brain without intravenous contrast. Radiation dose: Total exam DLP = 981.84 mGy-cm. This CT exam was performed using one or more of the following dose reduction techniques: Automated exposure control, adjustment of the mA and/or kV according to patient size, and/or use of iterative reconstruction technique. FINDINGS: HEMORRHAGE: No intracranial hemorrhage. BRAIN: Diffuse atrophy with prominence of the ventricles and sulci noted. No mass effect or edema. Scattered periventricular and subcortical white matter hypodensities, which are nonspecific, but often seen with chronic microvascular ischemic disease. Diffuse atrophy with prominence of the ventricles and sulci noted. VENTRICLES: No hydrocephalus. CALVARIUM: Unremarkable. PARANASAL SINUSES: Unremarkable as visualized. No significant inflammatory changes. MASTOID AIR CELLS: Unremarkable as visualized. No inflammatory changes. OTHER FINDINGS: Opacification of the right external auditory canal, likely cerumen. IMPRESSION: Generalized atrophy. Nonspecific white matter changes.
--- NOTE | 2017-01-11 19:14 | CP.PCM.HP ---
<Iris Fried - Last Filed: 01/12/17 02:21> History of Present Illness - History of Present Illness History of Present Illness: CC: I fell HPI: 86yo female with PMHx abdominal hernia, gastritis, anxiety, asthma, COPD, DM, CAD, HTN - presents c/o fall at home. Patient reports she got up and walked to the bathroom before falling. She denied any feelings of dizziness before the wall and reported only that she tripped. She stated she hit her right hip, right elbow, and head when she fell. She denied any LOC. Although no one saw her fall, her son in law was at home. Currently patient denied any pain and is able to move her legs and has complete ROS of all four extremities without pain. Patient denied any fever, chills, headache, change in vision, change in hearing, chest pain, palpitations, SOB, cough, abdominal pain, nausea, vomiting , bowel/bladder complaints, leg swelling/leg pain, numbness or tingling of her lower extremities. She does have some bruising on her right hip but denied any pain. Patient last admitted 01/03 for headache for 1 week PMD: Dr. Gomez PMH: abdominal hernia, gastritis, anxiety, asthma, COPD, DM, CAD, HTN Medications: Crestor 5mg po daily, Pepcid 20mg po daily, Amlodipine 10mg po daily, ASA 81mg po daily, Plavix 75mg po daily, Hydralazine 25mg po BID FHx: mother- asthma, heart disease, at age 92 PSHx: hysterectomy and oopherectomy, cataract surgery, Cardiac cath 02/2016 with stents SHx: smoked 1ppd x 50 yrs, quit 20 yrs ago; social drinker in the past, denies current use. denies illicit drug use. Lives alone. Has homemaker. ROS: denied: fever, chills, headache, change in vision, change in hearing, chest pain, palpitations, SOB, cough, abdominal pain, nausea, vomiting, bowel/ bladder complaints, leg swelling/leg pain, numbness or tingling of her lower extremities admits: back pain ED Course: CT head negative. Patient was given morphine for pain which helped pain to right hip, right elbow and head resolve by the time she was on the floors. CT lower extremity showedThere appears to be an old right greater trochanter fracture which is healed, with overlying acute. subcutaneous contusion/hematoma. No definite acute fracture seen. Recommend clinical correlation. Apparent wall thickening in the ascending colon may be secondary to incomplete filling versus an. underlying mass. Moderate constipation. Other findings as described. X-ray right elbow ordered, Labs ordered, CXR and EKG ordered. Present on Admission - Present on Admission Any Indicators Present on Admission: No Review of Systems - Constitutional Constitutional: As Per HPI. absent: Chills, Fever, Headache, Weakness - EENT Eyes: As Per HPI. absent: Blurred Vision Ears: As Per HPI. absent: Tinnitus, Dizziness Nose/Mouth/Throat: As Per HPI. absent: Dysphagia, Sore Throat - Cardiovascular Cardiovascular: As Per HPI. absent: Chest Pain, Chest Pain with Activity, Dyspnea, Edema, Pedal Edema - Respiratory Respiratory: As Per HPI. absent: Cough, Dyspnea, Chest Congestion - Gastrointestinal Gastrointestinal: As Per HPI. absent: Abdominal Pain, Constipation, Diarrhea, Nausea, Vomiting - Genitourinary Genitourinary: As Per HPI. absent: Dysuria, Hematuria, Pyuria, Nocturia - Musculoskeletal Musculoskeletal: As Per HPI, Back Pain. absent: Joint Swelling, Numbness, Tingling - Integumentary Integumentary: As Per HPI. absent: Dry Skin, Rash - Neurological Neurological: As Per HPI, Frequent Falls. absent: Dizziness, Numbness, Syncope , Tingling, Weakness - Psychiatric Psychiatric: As Per HPI. absent: Anxiety, Depression - Endocrine Endocrine: As Per HPI. absent: Polydipsia, Polyphagia, Polyuria - Hematologic/Lymphatic Hematologic: As Per HPI. absent: Easy Bleeding, Easy Bruising, Lymphadenopathy Past Patient History - Infectious Disease Hx of Infectious Diseases: None - Tetanus Immunizations Tetanus Immunization: Unknown - Past Medical History & Family History Past Medical History?: Yes - Past Social History Smoking Status: Former Smoker - CARDIAC Hx Hypercholesterolemia: Yes Hx Hypertension: Yes - PULMONARY Hx Asthma: Yes Hx Chronic Obstructive Pulmonary Disease (COPD): Yes - NEUROLOGICAL Hx Seizures: No - HEENT Hx HEENT Problems: Yes Hx Cataracts: Yes (right eye) Hx Glaucoma: Yes (left eye) - RENAL Hx Chronic Kidney Disease: No - HEMATOLOGICAL/ONCOLOGICAL Hx Human Immunodeficiency Virus (HIV): No - INTEGUMENTARY Hx Dermatological Problems: No - MUSCULOSKELETAL/RHEUMATOLOGICAL Hx Arthritis: Yes (L KNEE; L WRIST) Hx Fractures: Yes (left wrist) Hx Osteoporosis: Yes Hx Rheumatoid Arthritis: Yes - GASTROINTESTINAL Hx Gastritis: Yes - GENITOURINARY/GYNECOLOGICAL Hx Sexually Transmitted Disorders: No - PSYCHIATRIC Hx Anxiety: Yes Hx Substance Use: No - SURGICAL HISTORY Hx Coronary Stent: Yes - ANESTHESIA Hx Anesthesia: Yes Hx Anesthesia Reactions: No Hx Malignant Hyperthermia: No Meds Allergies/Adverse Reactions: Allergies Allergy/AdvReac Type Severity Reaction Status Date / Time No Known Allergies Allergy Verified 01/11/17 15:01 Physical Exam - Constitutional Appears: Well, Non-toxic, No Acute Distress - Head Exam Head Exam: ATRAUMATIC, NORMAL INSPECTION, NORMOCEPHALIC - Eye Exam Eye Exam: EOMI, Normal appearance, PERRL. absent: Conjunctival injection, Scleral icterus Pupil Exam: NORMAL ACCOMODATION - ENT Exam ENT Exam: Mucous Membranes Moist - Neck Exam Neck exam: Positive for: Full Rom, Normal Inspection. Negative for: Tenderness - Respiratory Exam Respiratory Exam: Clear to Auscultation Bilateral, NORMAL BREATHING PATTERN. absent: Accessory Muscle Use, Rales, Rhonchi, Wheezes - Cardiovascular Exam Cardiovascular Exam: REGULAR RHYTHM, RRR, +S1, +S2. absent: Systolic Murmur - GI/Abdominal Exam GI & Abdominal Exam: Normal Bowel Sounds, Soft. absent: Firm, Guarding, Hernia , Rigid, Tenderness - Extremities Exam Extremities exam: Positive for: normal capillary refill, pedal pulses present. Negative for: joint swelling, pedal edema Additional comments: right hip: ecchymosis noted. Not tender to palpation. No decrease in ROM. - Back Exam Back exam: NORMAL INSPECTION. absent: CVA tenderness (L), CVA tenderness (R), rash noted, tenderness - Neurological Exam Neurological exam: Alert, CN II-XII Intact, Oriented x3 - Psychiatric Exam Psychiatric exam: Normal Affect, Normal Mood - Skin Skin Exam: Dry, Intact, Normal Color, Warm Results - Vital Signs Recent Vital Signs: Last Vital Signs Temp 98.2 F 01/11/17 14:05 Pulse 64 01/11/17 17:06 Resp 15 01/11/17 17:06 BP 108/56 L 01/11/17 17:06 Pulse Ox 96 01/11/17 18:58 - Labs Result Diagrams: 01/11/17 16:44 01/11/17 16:44 Labs: Laboratory Results - last 24 hr 01/11/17 01/11/17 01/11/17 16:44 16:44 16:44 WBC 9.9 D RBC 3.61 L Hgb 10.4 L Hct 32.1 L MCV 88.9 MCH 28.8 MCHC 32.3 L RDW 14.5 Plt Count 179 MPV 9.0 Neut % (Auto) 70.0 Lymph % (Auto) 19.9 L Glenn % (Auto) 7.4 Eos % (Auto) 2.2 Baso % (Auto) 0.5 Neut # 6.9 Lymph # 2.0 Glenn # 0.7 Eos # 0.2 Baso # 0.1 PT 11.4 INR 1.0 APTT 30 Sodium 136 Potassium 5.3 H Chloride 96 L Carbon Dioxide 27 Anion Gap 18 BUN 55 H Creatinine 1.7 H Est GFR ( Amer) 34 Est GFR (Non-Af Amer) 28 Random Glucose 196 H Calcium 8.8 Total Bilirubin 0.5 AST 47 H D ALT 29 Alkaline Phosphatase 64 Total Protein 6.8 Albumin 4.3 Globulin 2.5 Albumin/Globulin Ratio 1.7 Blood Type Antibody Screen 01/11/17 16:44 WBC RBC Hgb Hct MCV MCH MCHC RDW Plt Count MPV Neut % (Auto) Lymph % (Auto) Glenn % (Auto) Eos % (Auto) Baso % (Auto) Neut # Lymph # Glenn # Eos # Baso # PT INR APTT Sodium Potassium Chloride Carbon Dioxide Anion Gap BUN Creatinine Est GFR ( Amer) Est GFR (Non-Af Amer) Random Glucose Calcium Total Bilirubin AST ALT Alkaline Phosphatase Total Protein Albumin Globulin Albumin/Globulin Ratio Blood Type O NEGATIVE Antibody Screen Negative Assessment & Plan - Assessment and Plan (Free Text) Assessment: 86yo female with PMHx abdominal hernia, gastritis, anxiety, asthma, COPD, DM, CAD, HTN - presents c/o fall at home Plan: Mechanical Fall -Head CT Generalized atrophy. Nonspecific white matter changes -Lower extremity CT: There appears to be an old right greater trochanter fracture which is healed, with overlying acute. subcutaneous contusion/ hematoma. No definite acute fracture seen. Recommend clinical correlation. Apparent wall thickening in the ascending colon may be secondary to incomplete filling versus an. underlying mass. Moderate constipation. Other findings as described. [f/u official read] -f/u elbow x-ray -Tylenol 650mg po q6 prn pain -Fall risk -PT/OT Hx of CAD -ASA 81mg po daily -Plavix 75mg po daily -Crestor 5mg po hs -Norvasc 10mg po daily -ASA 81mg po daily -Hydralazine 25mg po daily Hx of HTN -Norvasc 10mg po daily -ASA 81mg po daily -Hydralazine 25mg po daily Hx of Gastritis -Pepcid 20mg po daily Hx of DM2 -Accucheck -RISS medium -f/u HgbA1c PPX -SCDs -Pepcid 20mg po daily -Heparin 5000U SC Q12 -Heart healthy diet -NS @ 60cc/hr Plan discussed with Dr. Marcy Fried PGY1 <Jose Vidal - Last Filed: 01/12/17 05:49> Results - Vital Signs Recent Vital Signs: Last Vital Signs Temp 98.0 F 01/12/17 04:00 Pulse 59 L 01/12/17 04:00 Resp 20 01/12/17 04:00 BP 106/58 L 01/12/17 04:00 Pulse Ox 95 01/12/17 04:00 - Labs Result Diagrams: 01/11/17 16:44 01/11/17 16:44 Labs: Laboratory Results - last 24 hr 01/11/17 22:59 POC Glucose (mg/dL) 221 H Assessment & Plan - Date & Time Date: 01/12/17 (I have seen and examined the patient. I agree with the findings and plan of care as documented by Dr. Fried. Patient s/p fall. Denies LOC. Denies feeling dizzy prior to fall. CT head negative. Some bruising but no limited mobility. No obvious fractures. Also with history of CAD and diabetes. Continue home meds. NISS and accuchecks. Monitor for acute changes.) Time: 05:48 Attending/Attestation - Attestation I have personally seen and examined this patient.: Yes I have fully participated in the care of the patient.: Yes I have reviewed all pertinent clinical information: Yes
[2017-01-12] MEDS: Sodium Chloride 0.9% 1,000 ML IV SCH ×2 (01:11→18:00)
--- NOTE | 2017-01-12 07:08 | CP.PCM.PN ---
Subjective - Date & Time of Evaluation Date of Evaluation: 01/12/17 Time of Evaluation: 07:25 - Subjective Subjective: PGY 1 Medicine Note- Dr. Carmona's service. Pt seen and examined in no acute distress. Patient states that she injured her right hip after a fall. Her pain waxes and wanes but she is able to move her lg and arms though occasionally wincing in pain. She felt a little chilly in bed last night but denies night sweats, subjective fevers, chest pain, nausea, vomiting, diarrhea, constipation at this time. Objective - Vital Signs/Intake and Output Vital Signs (last 24 hours): Temp Pulse Resp BP Pulse Ox 98.0 F 59 L 20 106/58 L 95 01/12/17 04:00 01/12/17 04:00 01/12/17 04:00 01/12/17 04:00 01/12/17 04:00 - Medications Medications: Current Medications Acetaminophen (Tylenol 325mg Tab) 650 mg PO Q6 PRN PRN Reason: Pain, moderate (4-7) Last Admin: 01/12/17 01:07 Dose: 650 mg Amlodipine Besylate (Norvasc) 10 mg PO DAILY [facility] Aspirin (Ecotrin) 81 mg PO DAILY [facility] Calcium/Vitamin D (Oyster Shell Calcium/Vitamin D 500 Mg-200 Iu) 1 tab PO BID [facility] Clopidogrel Bisulfate (Plavix) 75 mg PO DAILY [facility] Famotidine (Pepcid) 20 mg PO HS [facility] Heparin Sodium (Porcine) (Heparin) 5,000 units SC Q12 [facility] Hydralazine HCl (Apresoline) 25 mg PO DAILY [facility] Sodium Chloride (Sodium Chloride 0.9%) 1,000 mls @ 60 mls/hr IV .[id number] [facility] Last Admin: 01/12/17 01:11 Dose: 60 mls/hr Insulin Aspart (Novolog) 0 unit SC ACHS [facility] PRN Reason: Protocol Rosuvastatin Calcium (Crestor) 5 mg PO HS [facility] - Labs Labs: PT 11.4 SECONDS (9.7-12.2) 01/11/17 16:44 INR 1.0 01/11/17 16:44 APTT 30 SECONDS (21-34) 01/11/17 16:44 - Constitutional Appears: Non-toxic, No Acute Distress - Head Exam Head Exam: ATRAUMATIC, NORMAL INSPECTION, NORMOCEPHALIC - Eye Exam Eye Exam: EOMI, Normal appearance, PERRL Pupil Exam: NORMAL ACCOMODATION - ENT Exam ENT Exam: Mucous Membranes Moist - Neck Exam Neck Exam: Full ROM - Respiratory Exam Respiratory Exam: Clear to Ausculation Bilateral, NORMAL BREATHING PATTERN. absent: Wheezes - Cardiovascular Exam Cardiovascular Exam: REGULAR RHYTHM, +S1, +S2 - GI/Abdominal Exam GI & Abdominal Exam: Soft, Normal Bowel Sounds - Extremities Exam Extremities Exam: Full ROM - Back Exam Back Exam: Full ROM, NORMAL INSPECTION - Neurological Exam Neurological Exam: Alert, Awake, CN II-XII Intact, Oriented x3 Additional comments: right hip: ecchymosis noted. mildly tender to palpation. ROM intact - Psychiatric Exam Psychiatric exam: Normal Affect, Normal Mood - Skin Skin Exam: Dry, Intact, Warm Additional comments: ecchymosis at site of right lateral hip Assessment and Plan - Assessment and Plan (Free Text) Assessment: Mechanical Fall -Head CT Generalized atrophy. Nonspecific white matter changes -Lower extremity CT: There appears to be an old right greater trochanter fracture which is healed, with overlying acute. subcutaneous contusion/ hematoma. No definite acute fracture seen. Recommend clinical correlation. Apparent wall thickening in the ascending colon may be secondary to incomplete filling versus an. underlying mass. Moderate constipation. Other findings as described. [f/u official read] -elbow x-ray- unremarkable findings -Tylenol 650mg po q6 prn pain -Fall risk -PT/OT- F/U Hx of CAD -ASA 81mg po daily -Plavix 75mg po daily -Crestor 5mg po hs -Norvasc 10mg po daily -ASA 81mg po daily -Hydralazine 25mg po daily Hx of HTN -Norvasc 10mg po daily -ASA 81mg po daily -Hydralazine 25mg po daily -BP meds held for hypotension. Will administer if SBP above 110. Hx of Gastritis -Pepcid 20mg po daily Hx of DM2 -Accucheck -RISS medium -HgbA1c 7.1 PPX -SCDs -Pepcid 20mg po daily -Heparin 5000U SC Q12 -Heart healthy diet -NS @ 60cc/hr -PT/OT recommendations- F/U
[2017-01-12 07:23] LABS: BASO # 0.1 K/uL (0.0-0.2); BASO % 0.9 % (0.0-2.0); EOS # 0.3 K/uL (0.0-0.7); EOS % 5.1 % (0.0-4.0); HEMATOCRIT 28.4 % (34.0-47.0); LYMPH # 1.8 K/uL (1.0-4.3); LYMPH % 30.6 % (20.0-40.0); MEAN CELL VOLUME 88.6 fL (81.0-99.0); MEAN CORPUSCULAR HEMOGLOBIN 29.4 pg (27.0-31.0); MEAN CORPUSCULAR HGB CONC 33.2 g/dL (33.0-37.0); MEAN PLATELET VOLUME 9.3 fL (7.2-11.7); MONO # 0.7 K/uL (0.0-0.8); RED CELL DISTRIBUTION WIDTH 14.3 % (11.5-14.5); WHITE BLOOD COUNT 5.9 K/uL (4.8-10.8)
[2017-01-12] MEDS ORDERED: (Novolog) Insulin Aspart, Recombinant 100 u/ml 10 ml vial SC SCH (07:30)
[2017-01-12 07:32] LABS: POTASSIUM 4.8 mmol/L (3.6-5.2)
[2017-01-12 07:35] LABS: ALB/GLOB RATIO 1.5 (1.0-2.1); BILIRUBIN,TOTAL 0.4 mg/dL (0.2-1.3); CALCIUM 8.7 mg/dl (8.6-10.4); TOTAL PROTEIN 6.2 g/dL (6.3-8.3)
[2017-01-12] MEDS: (Novolog) Insulin Aspart, Recombinant 100 u/ml 10 ml vial SC SCH ×4 (08:40→22:03)
--- NOTE | 2017-01-12 08:54 | CT ---
PROCEDURE: CT pelvis/hips HISTORY: HIPS/PELVIS PAIN, R>L COMPARISON: Not available TECHNIQUE: 2.5 mm contiguous axial sections were acquired through the pelvis and hips. Sagittal and coronal images were reformatted from the axial scan. Total exam DLP: 452.01 mGy-cm FINDINGS: There is no evidence of acute fracture. Probable old healed right greater trochanter fracture. The hips appear intact. The femoral head is normally situated in the acetabulum bilaterally. The remainder of the pelvis is unremarkable. The sacroiliac joints are normal in appearance. There is no sacral fracture appreciated. Evaluation of the pelvic soft tissues demonstrates no bowel obstruction. There is questionable mild circumferential mural thickening of the portion of the ascending colon included in this examination. This may be due to underdistention. Mild retained feces. Normal appendix. Status post hysterectomy. Unremarkable urinary bladder. There is soft tissue ecchymosis/hematoma overlying the right greater trochanter. IMPRESSION: No acute fracture. Probable old healed fracture of the right greater trochanter. Soft tissue ecchymosis/ hematoma overlying the right greater trochanter. Possible circumferential mural thickening of the ascending colon. Consider evaluation with colonoscopy. Preliminary interpretation of this examination was reported by [facility] at 6:07 p.m. on 01/11/2017. There is concurrence of this report with the preliminary interpretation.
--- NOTE | 2017-01-12 10:15 | RAD ---
PROCEDURE: CHEST RADIOGRAPH, 1 VIEW HISTORY: Fall COMPARISON: 01/03/2017. FINDINGS: LUNGS: The lungs are hyperinflated and there is peribronchial thickening with chronic changes in both lungs. PLEURA: No pneumothorax or pleural fluid seen. CARDIOVASCULAR: There is moderate cardiomegaly. Atherosclerotic aortic arch calcifications are present. OSSEOUS STRUCTURES: No significant abnormalities. VISUALIZED UPPER ABDOMEN: Normal. OTHER FINDINGS: None. IMPRESSION: No active pulmonary disease. COPD.
[2017-01-12] MEDS: Calcium-Vit D 500 mg-200 Units Tab UD PO SCH ×2 (10:16→17:56)
--- NOTE | 2017-01-12 10:44 | RAD ---
PROCEDURE: Radiographs of the right elbow. HISTORY: FALL COMPARISON: No prior. FINDINGS: BONES: Normal. No fracture. JOINTS: Normal. No osteoarthritis. SOFT TISSUES: Normal. JOINT EFFUSION: None. OTHER FINDINGS: None. IMPRESSION: Unremarkable radiographs of the right elbow.
[2017-01-12 15:44] VITALS: RESP 20
--- NOTE | 2017-01-12 17:42 | CARD ---
APPROVED REPORT EKG Measurement Heart [id number] <Conclusion> Normal sinus rhythm Left bundle branch block Abnormal ECG
[2017-01-13] MEDS: (Novolog) Insulin Aspart, Recombinant 100 u/ml 10 ml vial SC SCH ×3 (08:31→17:34)
[2017-01-13 08:49] LABS: BASO % 0.7 % (0.0-2.0); EOS # 0.2 K/uL (0.0-0.7); HEMATOCRIT 27.6 % (34.0-47.0); LYMPH % 31.9 % (20.0-40.0); MEAN CELL VOLUME 88.5 fL (81.0-99.0); MEAN CORPUSCULAR HEMOGLOBIN 29.5 pg (27.0-31.0); MEAN CORPUSCULAR HGB CONC 33.3 g/dL (33.0-37.0); MEAN PLATELET VOLUME 9.4 fL (7.2-11.7); MONO # 0.7 K/uL (0.0-0.8); MONO % 11.3 % (0.0-10.0); RED CELL DISTRIBUTION WIDTH 13.9 % (11.5-14.5); WHITE BLOOD COUNT 6.1 K/uL (4.8-10.8)
[2017-01-13 09:00] LABS: POTASSIUM 4.6 mmol/L (3.6-5.2)
[2017-01-13 09:02] LABS: BILIRUBIN,TOTAL 0.4 mg/dL (0.2-1.3)
[2017-01-13 09:03] LABS: ALB/GLOB RATIO 1.4 (1.0-2.1); PHOSPHOROUS 4.3 mg/dL (2.5-4.5); TOTAL PROTEIN 6.3 g/dL (6.3-8.3)
[2017-01-13 09:04] LABS: CALCIUM 9.4 mg/dl (8.6-10.4); MAGNESIUM 2.1 mg/dL (1.6-2.3)
[2017-01-13] MEDS: Calcium-Vit D 500 mg-200 Units Tab UD PO SCH ×2 (09:36→17:25)
--- NOTE | 2017-01-13 15:03 | CP.PCM.DIS ---
<Sylvain Gutierrez - Last Filed: 01/13/17 15:17> Provider - Provider Date of Admission: 01/11/17 18:58 Attending physician: Torie Wright DO Time Spent in preparation of Discharge (in minutes): 32 Hospital Course - Lab Results Lab Results: Most Recent Lab Values WBC 6.1 K/uL (4.8-10.8) 01/13/17 08:41 RBC 3.11 Mil/uL (3.80-5.20) L 01/13/17 08:41 Hgb 9.2 g/dL (11.0-16.0) L 01/13/17 08:41 Hct 27.6 % (34.0-47.0) L 01/13/17 08:41 MCV 88.5 fL (81.0-99.0) 01/13/17 08:41 MCH 29.5 pg (27.0-31.0) 01/13/17 08:41 MCHC 33.3 g/dL (33.0-37.0) 01/13/17 08:41 RDW 13.9 % (11.5-14.5) 01/13/17 08:41 Plt Count 146 K/uL (130-400) 01/13/17 08:41 MPV 9.4 fL (7.2-11.7) 01/13/17 08:41 Neut % (Auto) 52.1 % (50.0-75.0) 01/13/17 08:41 Lymph % (Auto) 31.9 % (20.0-40.0) 01/13/17 08:41 [place] % (Auto) 11.3 % (0.0-10.0) H 01/13/17 08:41 Eos % (Auto) 4.0 % (0.0-4.0) 01/13/17 08:41 Baso % (Auto) 0.7 % (0.0-2.0) 01/13/17 08:41 Neut # 3.2 K/uL (1.8-7.0) 01/13/17 08:41 Lymph # 2.0 K/uL (1.0-4.3) 01/13/17 08:41 [place] # 0.7 K/uL (0.0-0.8) 01/13/17 08:41 Eos # 0.2 K/uL (0.0-0.7) 01/13/17 08:41 Baso # 0.0 K/uL (0.0-0.2) 01/13/17 08:41 PT 11.4 SECONDS (9.7-12.2) 01/11/17 16:44 INR 1.0 01/11/17 16:44 APTT 31 SECONDS (21-34) 01/12/17 07:03 Sodium 140 mmol/L (132-148) 01/13/17 08:41 Potassium 4.6 mmol/L (3.6-5.2) 01/13/17 08:41 Chloride 102 mmol/L (98-107) 01/13/17 08:41 Carbon Dioxide 30 mmol/L (22-30) 01/13/17 08:41 Anion Gap 14 (10-20) 01/13/17 08:41 BUN 52 mg/dL (7-17) H 01/13/17 08:41 Creatinine 1.6 MG/DL (0.7-1.2) H 01/13/17 08:41 Est GFR ( Amer) 37 01/13/17 08:41 Est GFR (Non-Af Amer) 31 01/13/17 08:41 POC Glucose (mg/dL) 277 mg/dL (65-110) H 01/13/17 11:33 Random Glucose 199 mg/dL (65-105) H 01/13/17 08:41 Hemoglobin A1c 7.1 % (4.2-6.5) H 01/12/17 07:03 Calcium 9.4 mg/dl (8.6-10.4) 01/13/17 08:41 Phosphorus 4.3 mg/dL (2.5-4.5) 01/13/17 08:41 Magnesium 2.1 mg/dL (1.6-2.3) 01/13/17 08:41 Total Bilirubin 0.4 mg/dL (0.2-1.3) 01/13/17 08:41 AST 35 U/L (14-36) 01/13/17 08:41 ALT 29 U/L (9-52) 01/13/17 08:41 Alkaline Phosphatase 70 U/L (38-126) 01/13/17 08:41 Total Protein 6.3 g/dL (6.3-8.3) 01/13/17 08:41 Albumin 3.7 g/dL (3.5-5.0) 01/13/17 08:41 Globulin 2.6 gm/dL (2.2-3.9) 01/13/17 08:41 Albumin/Globulin Ratio 1.4 (1.0-2.1) 01/13/17 08:41 Blood Type O NEGATIVE 01/11/17 16:44 Antibody Screen Negative 01/11/17 16:44 - Hospital Course Hospital Course: HPI: 86yo female with PMHx abdominal hernia, gastritis, anxiety, asthma, COPD, DM, CAD, HTN - presents c/o fall at home. Patient reports she got up and walked to the bathroom before falling. She denied any feelings of dizziness before the wall and reported only that she tripped. She stated she hit her right hip, right elbow, and head when she fell. She denied any LOC. Although no one saw her fall, her son in law was at home. Currently patient denied any pain and is able to move her legs and has complete ROS of all four extremities without pain. Patient denied any fever, chills, headache, change in vision, change in hearing, chest pain, palpitations, SOB, cough, abdominal pain, nausea, vomiting , bowel/bladder complaints, leg swelling/leg pain, numbness or tingling of her lower extremities. She does have some bruising on her right hip but denied any pain. Patient last admitted 01/03 for headache for 1 week. Hospital Course: Head CT revealed generalized atrophy, nonspecific white matter changes (please see full report). Lower extremity CT revealed what appears to be an old right greater trochanter fracture which is healed, with overlying acute subcutaneous contusion/hematoma. No definite acute fracture seen. Recommend clinical correlation. Apparent wall thickening in the ascending colon may be secondary to incomplete filling versus an underlying mass. Moderate constipation (please see full report). Elbow x-ray revealed unremarkable findings (please see full report). Pt was started on home medications for coronary artery disease, which include plavix, crestor, and aspirin. Home HTN medications of norvasc and hydralazine were held due to pt being hypotensive. Pt was started on insulin sliding scale coverage. Physical therapy was consulted. Pt was placed on GI/DVT prophylaxis. Discharge Exam - Head Exam Head Exam: ATRAUMATIC, NORMAL INSPECTION, NORMOCEPHALIC - Eye Exam Eye Exam: EOMI, PERRL - ENT Exam ENT Exam: Mucous Membranes Moist. absent: Mucous Membranes Dry - Neck Exam Neck exam: Full Rom - Respiratory Exam Additional comments: Slight bilateral wheezes - Cardiovascular Exam Cardiovascular Exam: +S1, +S2. absent: Gallop, Rubs - GI/Abdominal Exam GI & Abdominal Exam: Normal Bowel Sounds. absent: Distended, Guarding, Soft - Extremities Exam Additional comments: Rigth hip ecchymosis - Neurological Exam Neurological exam: Alert, Oriented x3 - Psychiatric Exam Psychiatric exam: Normal Affect, Normal Mood - Skin Skin Exam: Normal Color, Warm Discharge Plan - Follow Up Plan Condition: STABLE Disposition: HOME/ ROUTINE Patient education suggested?: Yes Instructions: Pneumococcal Vaccine for Adults (DC), Heart Healthy Diet (DC), Influenza Vaccine (DC), COPD (Chronic Obstructive Pulmonary Disease) (DC), Contusion in Adults (DC), Hypotension (DC), Fall Prevention (DC) Additional Instructions: Please follow up with primary medical doctor, Dr. Gomez, on 01/15/17. Please resume all home medications, with the exception of norvasc and hydralazine. Norvasc and hydralazine are medication for high blood pressure, and since your blood pressure has been low, we have held them. Please follow up with Dr. Gomez regarding starting your blood pressure medications. Please return to the hospital if symptoms worsen or new symptoms arise. Referrals: Chuck Gomez MD [Staff Provider] - <Lyndon Guerin - Last Filed: 01/13/17 18:41> Provider - Provider Date of Admission: 01/11/17 18:58 Attending physician: Torie Wright DO Hospital Course - Lab Results Lab Results: Most Recent Lab Values WBC 6.1 K/uL (4.8-10.8) 01/13/17 08:41 RBC 3.11 Mil/uL (3.80-5.20) L 01/13/17 08:41 Hgb 9.2 g/dL (11.0-16.0) L 01/13/17 08:41 Hct 27.6 % (34.0-47.0) L 01/13/17 08:41 MCV 88.5 fL (81.0-99.0) 01/13/17 08:41 MCH 29.5 pg (27.0-31.0) 01/13/17 08:41 MCHC 33.3 g/dL (33.0-37.0) 01/13/17 08:41 RDW 13.9 % (11.5-14.5) 01/13/17 08:41 Plt Count 146 K/uL (130-400) 01/13/17 08:41 MPV 9.4 fL (7.2-11.7) 01/13/17 08:41 Neut % (Auto) 52.1 % (50.0-75.0) 01/13/17 08:41 Lymph % (Auto) 31.9 % (20.0-40.0) 01/13/17 08:41 [place] % (Auto) 11.3 % (0.0-10.0) H 01/13/17 08:41 Eos % (Auto) 4.0 % (0.0-4.0) 01/13/17 08:41 Baso % (Auto) 0.7 % (0.0-2.0) 01/13/17 08:41 Neut # 3.2 K/uL (1.8-7.0) 01/13/17 08:41 Lymph # 2.0 K/uL (1.0-4.3) 01/13/17 08:41 [place] # 0.7 K/uL (0.0-0.8) 01/13/17 08:41 Eos # 0.2 K/uL (0.0-0.7) 01/13/17 08:41 Baso # 0.0 K/uL (0.0-0.2) 01/13/17 08:41 PT 11.4 SECONDS (9.7-12.2) 01/11/17 16:44 INR 1.0 01/11/17 16:44 APTT 31 SECONDS (21-34) 01/12/17 07:03 Sodium 140 mmol/L (132-148) 01/13/17 08:41 Potassium 4.6 mmol/L (3.6-5.2) 01/13/17 08:41 Chloride 102 mmol/L (98-107) 01/13/17 08:41 Carbon Dioxide 30 mmol/L (22-30) 01/13/17 08:41 Anion Gap 14 (10-20) 01/13/17 08:41 BUN 52 mg/dL (7-17) H 01/13/17 08:41 Creatinine 1.6 MG/DL (0.7-1.2) H 01/13/17 08:41 Est GFR ( Amer) 37 01/13/17 08:41 Est GFR (Non-Af Amer) 31 01/13/17 08:41 POC Glucose (mg/dL) 240 mg/dL (65-110) H 01/13/17 17:31 Random Glucose 199 mg/dL (65-105) H 01/13/17 08:41 Hemoglobin A1c 7.1 % (4.2-6.5) H 01/12/17 07:03 Calcium 9.4 mg/dl (8.6-10.4) 01/13/17 08:41 Phosphorus 4.3 mg/dL (2.5-4.5) 01/13/17 08:41 Magnesium 2.1 mg/dL (1.6-2.3) 01/13/17 08:41 Total Bilirubin 0.4 mg/dL (0.2-1.3) 01/13/17 08:41 AST 35 U/L (14-36) 01/13/17 08:41 ALT 29 U/L (9-52) 01/13/17 08:41 Alkaline Phosphatase 70 U/L (38-126) 01/13/17 08:41 Total Protein 6.3 g/dL (6.3-8.3) 01/13/17 08:41 Albumin 3.7 g/dL (3.5-5.0) 01/13/17 08:41 Globulin 2.6 gm/dL (2.2-3.9) 01/13/17 08:41 Albumin/Globulin Ratio 1.4 (1.0-2.1) 01/13/17 08:41 Blood Type O NEGATIVE 01/11/17 16:44 Antibody Screen Negative 01/11/17 16:44 - Date & Time of H&P Date of H&P: 01/11/17 (I examined this patient and agrees with Dr Cardenas ' asssessment and plan. Dx#. Mechanical fall with radiographs showing no fracture. Patient could ambulate slowly to the bathroom. - She was given Prescription for Physical Therapy and Home care. #. CAD - Continue ASA/Plavix and Crestor as pre hospitalization. #. HTN - Blood pressure remained within normal limits without medication. Hydralazine and Norvasc were held in Hospital. restart Anti hypertensive meds as per PCP. #. Diabetes - continue NPH 70/30 as per pre hospital management. HbA1c 7.1 Lyndon Guerin MD Hospitalist.) Time of H&P: 19:14
[2017-01-13 15:50] VITALS: BP 127/52; PULSE 72; TEMP 98.6; O2SAT 96
== END 2017-01-13 18:20 | disposition home or self-care (01) | DRG 605 ==
LOC: C.ER 14:02 → C.9E 18:58 → C.6T 20:01
PROVIDERS: ADMIT Hospitalist; ATTEND Hospitalist
DX: S70.02XA Contusion of left hip, initial encounter (principal); S00.93XA Contusion of unspecified part of head, initial encounter; S50.02XA Contusion of left elbow, initial encounter; J44.9 Chronic obstructive pulmonary disease, unspecified; E11.9 Type 2 diabetes mellitus without complications; I10 Essential (primary) hypertension; I25.10 Atherosclerotic heart disease of native coronary artery without angina pectoris; M06.9 Rheumatoid arthritis, unspecified; K59.00 Constipation, unspecified; M81.0 Age-related osteoporosis without current pathological fracture; J45.909 Unspecified asthma, uncomplicated; M17.12 Unilateral primary osteoarthritis, left knee; W19.XXXA Unspecified fall, initial encounter; K29.70 Gastritis, unspecified, without bleeding; F41.9 Anxiety disorder, unspecified; E78.00 Pure hypercholesterolemia, unspecified; R29.6 Repeated falls; Z91.81 History of falling; Y92.002 Bathroom of unspecified non-institutional (private) residence as the place of occurrence of the external cause; Z95.5 Presence of coronary angioplasty implant and graft; Z79.4 Long term (current) use of insulin; Z87.891 Personal history of nicotine dependence; Z90.710 Acquired absence of both cervix and uterus; Z98.49 Cataract extraction status, unspecified eye; Z87.81 Personal history of (healed) traumatic fracture

== ENCOUNTER 2017-01-22 12:56 | Inpatient (IN) | payer MEDICARE, MEDICAID ==
[2017-01-22 13:19] VITALS: BMI 23.6
[2017-01-22 14:38] LABS: BASO % 0.6 % (0.0-2.0); EOS % 0.3 % (0.0-4.0); HEMATOCRIT 28.3 % (34.0-47.0); LYMPH # 0.8 K/uL (1.0-4.3); MEAN CORPUSCULAR HEMOGLOBIN 29.1 pg (27.0-31.0); MEAN CORPUSCULAR HGB CONC 33.1 g/dL (33.0-37.0); MEAN PLATELET VOLUME 8.7 fL (7.2-11.7); MONO # 0.8 K/uL (0.0-0.8); MONO % 9.6 % (0.0-10.0); WHITE BLOOD COUNT 7.9 K/uL (4.8-10.8)
[2017-01-22 14:54] LABS: POTASSIUM 3.9 mmol/L (3.6-5.2)
[2017-01-22 14:56] LABS: ALB/GLOB RATIO 1.3 (1.0-2.1); BILIRUBIN,TOTAL 0.5 mg/dL (0.2-1.3); CALCIUM 8.9 mg/dl (8.6-10.4); TOTAL PROTEIN 6.7 g/dL (6.3-8.3)
[2017-01-22 15:07] LABS: TROPONIN I 0.016 ng/mL (0.00-0.120)
[2017-01-22] MEDS ORDERED: Sodium Chloride 0.9% 500 ML IV ONE (15:38)
--- NOTE | 2017-01-22 15:47 | C.PDOC ---
Time Seen by Provider: 01/22/17 13:59 Chief Complaint (Nursing): Chest Pain History Per: Patient, Family (daughter) Onset/Duration Of Symptoms: Hrs (this morning) Current Symptoms Are (Timing): Better Severity: Moderate Quality: "Pain" Associated Symptoms: Nausea, Dyspnea Additional History Per: Prior Records Past Medical History Reviewed: Historical Data, Nursing Documentation, Vital Signs Vital Signs: Last Vital Signs Temp 99.0 F 01/22/17 13:15 Pulse 65 01/22/17 13:22 Resp 16 01/22/17 13:22 BP 107/64 01/22/17 13:15 Pulse Ox 944 H 01/22/17 13:22 - Medical History PMH: Anxiety, Arthritis, Asthma, Back Problems (HX CHRONIC BACK PAIN), CAD, COPD , Diabetes, Fractures (left wrist), Gastritis, HTN, Hypercholesterolemia, Osteoporosis, Rheumatoid Arthritis Surgical History: Coronary Stent - [facility] Procedures APPLICATION OF SPLINT (06/18/14) EXCISION OF ASCENDING COLON, ENDO, DIAGN (12/05/16) EXCISION OF STOMACH, ENDO, DIAGN (12/05/16) FLUOROSCOPY OF LEFT HEART USING LOW OSMOLAR CONTRAST (02/05/16) GAIT TRAINING/AMBULAT TREATMENT USING ASSIST EQUIPMENT (11/08/15) INTRODUCE ANTI-INFLAM IN PERIPH NRV, PLEXI, PERC (11/08/15) INTRODUCE REGIONAL ANESTH IN PERIPH NRV, PLEXI, PERC (11/08/15) MEASURE OF CARDIAC SAMPL & PRESSURE, L HEART, PERC APPROACH (02/05/16) NEBULIZER THERAPY (06/16/14) REPAIR LEFT UPPER ARM TENDON, OPEN APPROACH (11/08/15) REPAIR OF HAMMER TOE (07/17/13) REPOSITION LEFT HUMERAL SHAFT WITH INT FIX, OPEN APPROACH (11/08/15) TRANSFUSE NONAUT RED BLOOD CELLS IN PERIPH VEIN, PERC (12/05/16) Family History: States: Unknown Family Hx - Social History Hx Tobacco Use: No Hx Alcohol Use: No Hx Substance Use: No - Immunization History Hx Tetanus Toxoid Vaccination: Yes (3 mos. ago) Hx Influenza Vaccination: No ("Not sure'') Hx Pneumococcal Vaccination: No (''Not sure'') Review Of Systems Except As Marked, All Systems Reviewed And Found Negative. Constitutional: Positive for: Malaise Cardiovascular: Positive for: Chest Pain Respiratory: Positive for: Shortness of Breath. Negative for: Hemoptysis Gastrointestinal: Positive for: Nausea, Vomiting (x1) Musculoskeletal: Negative for: Neck Pain Neurological: Negative for: Weakness, Numbness, Seizures Physical Exam - Physical Exam Appears: No Acute Distress, Chronically Ill Skin: Normal Color, Warm, Dry Head: Atraumatic Eye(s): bilateral: PERRL Oral Mucosa: Dry Neck: Normal ROM, Supple Cardiovascular: Rhythm Regular Respiratory: Normal Breath Sounds, No Accessory Muscle Use Gastrointestinal/Abdominal: Soft, No Tenderness Back: No CVA Tenderness Extremity: Normal ROM Neurological/Psych: Normal Motor, Normal Sensation ED Course And Treatment - Laboratory Results Result Diagrams: 01/22/17 14:35 01/22/17 14:35 Interpretation Of Abnormal: Elevated BUN/Cr. ECG: Interpreted By Me, Viewed By Me ECG Rhythm: Sinus Rhythm, L BBB, Nonspecific Changes ECG Interpretation: No Changes From Prior Rate From EC - Radiology CXR: Interpreted by Me, Viewed By Me CXR Interpretation: Yes: No Acute Disease Disposition Discussed With DrTierney: Yasmani Waldrop Comment: He accepted pt on hospitalist service. Doctor Will See Patient In The: Hospital Counseled Patient/Family Regarding: Studies Performed, Diagnosis - Disposition Disposition: HOSPITALIZED Disposition Time: 15:51 Condition: FAIR - Clinical Impression Clinical Impression: Chest pain, Dehydration
--- NOTE | 2017-01-22 15:59 | RAD ---
PROCEDURE: CHEST RADIOGRAPH, 1 VIEW HISTORY: Chest pain. Shortness of breath. COMPARISON: 01/11/2017 FINDINGS: LUNGS: Biapical pleural thickening with upper lobe granulomatous changes. Patchy consolidative changes at the right lung base. Diffuse increased interstitial lung markings. Mild patchy increased markings at the left lung base with a somewhat lobulated opacity. Clinical correlation and correlation with lateral view may be helpful. PLEURA: As above. CARDIOVASCULAR: Normal. OSSEOUS STRUCTURES: Degenerative changes in the spine and shoulders. VISUALIZED UPPER ABDOMEN: Normal. OTHER FINDINGS: None. IMPRESSION: Biapical pleural thickening with upper lobe granulomatous changes. Patchy consolidative changes at the right lung base. Diffuse increased interstitial lung markings. Mild patchy increased markings at the left lung base with a somewhat lobulated opacity. Clinical correlation and correlation with lateral view may be helpful.
--- NOTE | 2017-01-22 16:27 | CP.PCM.HP ---
History of Present Illness - History of Present Illness History of Present Illness: CC: Chest pain + vomiting since last night. HPI: 86yo female with PMHx CAD, HTN, DM, abdominal hernia, gastritis, anxiety, asthma, COPD - presents c/o non-radiating chest pain with associated Dyspnea and vomiting since last night. She describes the chest pain as sharp, lasting roughly 10 minutes at a time, and localized over the left chest wall. The pain is not reproducible to palpation, but is reproducible to deep inhalation. She has experienced 3 episodes of chest pain, followed by dyspnea and vomiting (one last night and two this morning). The 3rd episode of chest pain prompted he to come to the ED. She also reports mild dizziness this morning, and found some relief by taking her home Meclizine (Rx for vertigo). She also reports chronic decreased appetite, and has not eaten or drank adequately in roughly 3 days. She admits to using a nebulizer device at home for her Asthma, however she has lost her face mask. Admits to malaise, chest pain on inspiration, SOB, n/v, and mild constipation. Denies f/c, dizziness, change in vision, LE edema, or any additional complaints. ED course: Tylenol 625mg, NS 0.9 1L. CXR - Rt lung base consolidative changes. PMD: Dr. Gomez PMH: abdominal hernia, gastritis, anxiety, asthma, COPD, DM, CAD, HTN Medications: Crestor 5mg po HS, Pepcid 20mg po daily, ASA 81mg po daily, Plavix 75mg po daily, Losartan 25mg PO qd, Furosemide 40mg PO qd, Meclizine 12.5mg PO BID, Esomeprazole 40mg PO qd. FHx: mother- asthma, heart disease, at age 92 PSHx: hysterectomy and oopherectomy, cataract surgery, Cardiac cath 02/2016 with 2x stents SHx: smoked 1ppd x 50 yrs, quit 20 yrs ago; social drinker in the past, denies current use. denies illicit drug use. Lives alone. Has homemaker. Present on Admission - Present on Admission Any Indicators Present on Admission: No History of DVT/PE: No History of Uncontrolled Diabetes: No Review of Systems - Review of Systems Review of Systems: - Constitutional Constitutional: As Per HPI. absent: Chills, Fever, Headache, Weakness - EENT Eyes: As Per HPI. absent: Blurred Vision Ears: As Per HPI. absent: Tinnitus, Dizziness Nose/Mouth/Throat: As Per HPI. absent: Dysphagia, Sore Throat - Cardiovascular Cardiovascular: As Per HPI. +Chest pain. absent: Edema, Pedal Edema - Respiratory Respiratory: As Per HPI. Dyspnea absent: Chest Congestion - Gastrointestinal Gastrointestinal: As Per HPI. +Nausea, +Vomiting absent: Abdominal Pain, Constipation, Diarrhea - Genitourinary Genitourinary: As Per HPI. absent: Dysuria, Hematuria, Pyuria, Nocturia - Musculoskeletal Musculoskeletal: As Per HPI, Back Pain. absent: Joint Swelling, Numbness, Tingling - Integumentary Integumentary: As Per HPI. absent: Dry Skin, Rash - Neurological Neurological: As Per HPI, Frequent Falls. absent: Dizziness, Numbness, Syncope , Tingling, Weakness - Psychiatric Psychiatric: As Per HPI. absent: Anxiety, Depression - Endocrine Endocrine: As Per HPI. absent: Polydipsia, Polyphagia, Polyuria - Hematologic/Lymphatic Hematologic: As Per HPI. absent: Easy Bleeding, Easy Bruising, Lymphadenopathy Past Patient History - Infectious Disease Hx of Infectious Diseases: None - Tetanus Immunizations Tetanus Immunization: Unknown - Past Medical History & Family History Past Medical History?: Yes - Past Social History Smoking Status: Former Smoker - CARDIAC Hx Hypercholesterolemia: Yes Hx Hypertension: Yes - PULMONARY Hx Asthma: Yes Hx Chronic Obstructive Pulmonary Disease (COPD): Yes - NEUROLOGICAL Hx Seizures: No - HEENT Hx HEENT Problems: Yes Hx Cataracts: Yes (right eye) Hx Glaucoma: Yes (left eye) - RENAL Hx Chronic Kidney Disease: No - HEMATOLOGICAL/ONCOLOGICAL Hx Human Immunodeficiency Virus (HIV): No - INTEGUMENTARY Hx Dermatological Problems: No - MUSCULOSKELETAL/RHEUMATOLOGICAL Hx Arthritis: Yes Hx Fractures: Yes (left wrist) Hx Osteoporosis: Yes Hx Rheumatoid Arthritis: Yes - GASTROINTESTINAL Hx Gastritis: Yes - GENITOURINARY/GYNECOLOGICAL Hx Sexually Transmitted Disorders: No - PSYCHIATRIC Hx Anxiety: Yes Hx Substance Use: No - SURGICAL HISTORY Hx Coronary Stent: Yes - ANESTHESIA Hx Anesthesia: Yes Hx Anesthesia Reactions: No Hx Malignant Hyperthermia: No Meds Allergies/Adverse Reactions: Allergies Allergy/AdvReac Type Severity Reaction Status Date / Time No Known Allergies Allergy Verified 01/22/17 13:19 Physical Exam - Additional Findings Additional findings: - Constitutional Appears: Well, Non-toxic, No Acute Distress - Head Exam Head Exam: ATRAUMATIC, NORMAL INSPECTION, NORMOCEPHALIC - Eye Exam Eye Exam: EOMI, Normal appearance, PERRL. absent: Conjunctival injection, Scleral icterus Pupil Exam: NORMAL ACCOMODATION - ENT Exam ENT Exam: Mucous Membranes Moist - Neck Exam Neck exam: Positive for: Full Rom, Normal Inspection. Negative for: Tenderness - Respiratory Exam Respiratory Exam: Clear to Auscultation Bilateral, NORMAL BREATHING PATTERN. absent: Accessory Muscle Use, Rales, Rhonchi, Wheezes - Cardiovascular Exam Cardiovascular Exam: REGULAR RHYTHM, RRR, +S1, +S2. absent: Systolic Murmur Note: Mild chest pain with deep inspiration (located 2 inches left/lateral to sternum, ribs 4-5). - GI/Abdominal Exam GI & Abdominal Exam: Normal Bowel Sounds, Soft, Distended, Hernia (abdominal). absent: Firm, Guarding, Rigid, Tenderness - Extremities Exam Extremities exam: Positive for: normal capillary refill, pedal pulses present. Negative for: joint swelling, pedal edema Additional comments: - Back Exam Back exam: NORMAL INSPECTION. absent: CVA tenderness (L), CVA tenderness (R), rash noted, tenderness - Neurological Exam Neurological exam: Alert, CN II-XII Intact, Oriented x3 - Psychiatric Exam Psychiatric exam: Normal Affect, Normal Mood - Skin Skin Exam: Dry, Intact, Normal Color, Warm Results - Vital Signs Recent Vital Signs: Last Vital Signs Temp 99.0 F 01/22/17 13:15 Pulse 65 01/22/17 13:22 Resp 16 01/22/17 13:22 BP 107/64 01/22/17 13:15 Pulse Ox 944 H 01/22/17 15:47 - Labs Result Diagrams: 01/22/17 14:35 01/22/17 14:35 Labs: Laboratory Results - last 24 hr 01/22/17 01/22/17 14:35 14:35 WBC 7.9 RBC 3.22 L Hgb 9.4 L Hct 28.3 L MCV 88.0 MCH 29.1 MCHC 33.1 RDW 14.0 Plt Count 234 MPV 8.7 Neut % (Auto) 79.5 H Lymph % (Auto) 10.0 L Harmon % (Auto) 9.6 Eos % (Auto) 0.3 Baso % (Auto) 0.6 Neut # 6.3 Lymph # 0.8 L [place]on # 0.8 Eos # 0.0 Baso # 0.0 Sodium 137 Potassium 3.9 Chloride 96 L Carbon Dioxide 30 Anion Gap 15 BUN 57 H Creatinine 1.7 H Est GFR ( Amer) 34 Est GFR (Non-Af Amer) 28 Random Glucose 141 H Calcium 8.9 Total Bilirubin 0.5 AST 45 H D ALT 40 Alkaline Phosphatase 77 Troponin I 0.0160 NT-Pro-B Natriuret Pep 1030 H Total Protein 6.7 Albumin 3.9 Globulin 2.9 Albumin/Globulin Ratio 1.3 Lipase 24 Assessment & Plan - Assessment and Plan (Free Text) Assessment: Pleuritic Pain - YADIRA negative x1 - EKG with LBBB - CXR - Rt lung base consolidative changes. See full report. - Consult Cardio, Dr. Hernandez, f/u recs - f/u Echo - f/u CT chest w/o contrast - f/u AM labs - f/u YADIRA x2 Dyspnea - patient with hx of Asthma - Albuterol 1.25mg INH BID IHSAN - Albuterol 1.25mg INH Q6H PRN, SOB Acute Kidney Injury - RODGER likely due to dehydration - BUN 57 / Cr 1.7 - follow for resolution with adequate PO intake and IVF bolus. Hx of CAD -ASA 81mg po daily -Plavix 75mg po daily -Crestor 5mg po hs Hx of HTN -BP 107/64 on admission. -ASA 81mg po daily -Losartan 25mg PO qd Hx of Gastritis - Pepcid 20mg po daily Hx of DM2 -Accucheck -RISS low -HgbA1c 7.1 Hx Vertigo - Continue home Meclizine 12.5mg PO BID PPX -SCDs -Pepcid 20mg po daily -Heparin 5000U SC Q12 -Heart healthy diet, carb consistent - Date & Time Date: 01/22/17 Time: 16:30
[2017-01-22 17:41] LABS: RENAL EPITHELIAL < 1 /hpf (0-3); URINE BACTERIA RARE (<OCC); URINE BILIRUBIN NEGATIVE (NEGATIVE); URINE BLOOD NEGATIVE (NEGATIVE); URINE COLOR Straw (YELLOW); URINE GLUCOSE (UA) NORMAL (Normal); URINE KETONE NEGATIVE (NEGATIVE); URINE LEUKOCYTE ESTERASE NEG Leu/uL (Negative); URINE PROTEIN NEGATIVE (NEGATIVE); URINE UROBILINOGEN NORMAL mg/dL (0.2-1.0); WBC URINE < 1 /hpf (0-5)
[2017-01-22] MEDS ORDERED: Albuterol 0.042% Inhal Sol (1.25 mg/3 mL) UD INH PRN (18:47)
--- NOTE | 2017-01-22 20:16 | CT ---
EXAM: CT Chest Without Intravenous Contrast CLINICAL HISTORY: 86 years old, female; Pain; Pleuordynia; Additional info: Lung consolidation at rt lung base, pleuritic cp TECHNIQUE: Axial computed tomography images of the chest without intravenous contrast. This CT exam was performed using one or more of the following dose reduction techniques: automated exposure control, adjustment of the mA and/or kV according to patient size, and/or use of iterative reconstruction technique. Coronal and sagittal reformatted images were created and reviewed. EXAM DATE/TIME: Exam ordered 01/22/2017 5:48 PM COMPARISON: CR - CHEST ONE VIEW 06/03/2015 5:31:51 PM FINDINGS: Lungs: A coarse linear density in the right lung apex suggests scarring. Calcifications are noted within the area of scarring. A thin pleural based reticular densities is noted at the right lung base suggesting an area of scar Pleural space: Unremarkable. No pneumothorax. No significant effusion. Heart: Unremarkable. No cardiomegaly. No significant pericardial effusion. Mediastinum: Calcifications in the left renal hilum may be vascular or urinary in nature. Calcifications in the right renal hilum may be vascular or urinary. Bones/joints: Unremarkable. No acute fracture. No dislocation.Mild degenerative changes are noted of the thoracic spine. Soft tissues: Calcifications are noted within the breast parenchyma bilaterally Vasculature: See above. Lymph nodes: Unremarkable. No enlarged lymph nodes. Gallbladder and bile ducts: Surgical clips are seen in the gallbladder fossa. The gallbladder is not seen as a separate structure. Spleen: Splenic calcifications are present. Other findings: 2 low-density lesions are noted within the left mid kidney. Both lesions have density readings less than 13 H. IMPRESSION: 1. No acute findings 2. Coarse linear density in the right lung apex suggesting scar. 3. Nonobstructing calcifications noted in the renal jacques bilaterally. The calcifications may be vascular or urinary. 4. Low density lesions in the left mid kidney. The appearance suggests cysts. 5. Calcifications within the spleen suggest previous granulomatous disease. 6. Thin pleural based reticular densities at the right lung base suggest areas of scar. No no evidence of atelectasis or consolidation at the right lung base
--- NOTE | 2017-01-22 22:01 | CP.PCM.CON ---
Past Patient History - Infectious Disease Hx of Infectious Diseases: None - Tetanus Immunizations Tetanus Immunization: Unknown - Past Medical History & Family History Past Medical History?: Yes - Past Social History Smoking Status: Former Smoker - CARDIAC Hx Cardiac Disorders: Yes Hx Hypercholesterolemia: Yes Hx Hypertension: Yes - PULMONARY Hx Respiratory Disorders: Yes Hx Asthma: Yes Hx Chronic Obstructive Pulmonary Disease (COPD): Yes - NEUROLOGICAL Hx Neurological Disorder: Yes Hx Dizziness: Yes Hx Seizures: No Hx Vertigo: Yes - HEENT Hx HEENT Problems: Yes Hx Cataracts: Yes (right eye) Hx Glaucoma: Yes (left eye) Other/Comment: [place] B[place] LEFT EAR - RENAL Hx Chronic Kidney Disease: No - ENDOCRINE/METABOLIC Hx Endocrine Disorders: Yes Hx Diabetes Mellitus Type 2: Yes - HEMATOLOGICAL/ONCOLOGICAL Hx Blood Disorders: No Hx Anemia: Yes Hx Blood Transfusions: Yes Hx Human Immunodeficiency Virus (HIV): No - INTEGUMENTARY Hx Dermatological Problems: No - MUSCULOSKELETAL/RHEUMATOLOGICAL Hx Falls: Yes - GASTROINTESTINAL Hx Gastrointestinal Disorders: Yes Hx Gastritis: Yes - GENITOURINARY/GYNECOLOGICAL Hx Genitourinary Disorders: No Hx Sexually Transmitted Disorders: No - PSYCHIATRIC Hx Substance Use: No - SURGICAL HISTORY Hx Surgeries: Yes Hx Coronary Stent: Yes (cad cath 02/2016 with stent) Hx Hysterectomy: Yes (and oophorectomy) Other/Comment: Hx of left arm surgery - ANESTHESIA Hx Anesthesia: Yes Hx Anesthesia Reactions: No Hx Malignant Hyperthermia: No Has any member of the family had a problem w/ anesthesia?: No Meds Allergies/Adverse Reactions: Allergies Allergy/AdvReac Type Severity Reaction Status Date / Time No Known Allergies Allergy Verified 01/22/17 13:19 - Medications Medications: Current Medications Albuterol Sulfate (Albuterol 0.042% Inhal Bibi (1.25mg/3ml) Ud) 1.25 mg INH RBID [facility] Albuterol Sulfate (Albuterol 0.042% Inhal Bibi (1.25mg/3ml) Ud) 1.25 mg INH RQ6 PRN PRN Reason: Shortness of Breath Aspirin (Ecotrin) 81 mg PO DAILY [facility] Calcium/Vitamin D (Oyster Shell Calcium/Vitamin D 500 Mg-200 Iu) 1 tab PO BID [facility] Clopidogrel Bisulfate (Plavix) 75 mg PO DAILY [facility] Famotidine (Pepcid) 20 mg PO DAILY [facility] Furosemide (Lasix) 40 mg PO DAILY [facility] Heparin Sodium (Porcine) (Heparin) 5,000 units SC Q12 [facility] Insulin Aspart (Novolog) 0 unit SC ACHS [facility] PRN Reason: Protocol Losartan Potassium (Cozaar) 25 mg PO DAILY [facility] Meclizine HCl (Antivert) 12.5 mg PO DAILY [facility] Rosuvastatin Calcium (Crestor) 5 mg PO HS [facility] Results - Vital Signs Recent Vital Signs: Last Vital Signs Temp 98.3 F 01/22/17 19:38 Pulse 68 01/22/17 19:38 Resp 20 01/22/17 19:38 BP 123/61 01/22/17 19:38 Pulse Ox 96 01/22/17 19:38 - Labs Result Diagrams: 01/22/17 14:35 01/22/17 14:35 Labs: Laboratory Results - last 24 hr 01/22/17 17:28 Urine Color Straw Urine Clarity Clear Urine pH 5.0 Ur Specific [place] 1.006 Urine Protein Negative Urine Glucose (UA) Normal Urine Ketones Negative Urine Blood Negative Urine Nitrate Negative Urine Bilirubin Negative Urine Urobilinogen Normal Ur Leukocyte Esterase Neg Urine WBC (Auto) < 1 Ur Renal Epithelial Cell < 1 Urine Bacteria Rare
[2017-01-22] MEDS: (Novolog) Insulin Aspart, Recombinant 100 u/ml 10 ml vial SC SCH (23:01)
[2017-01-22] MEDS ORDERED: Acetaminophen-Codeine 300/30 mg Tab PO ONE (23:08)
[2017-01-23] MEDS: Albuterol 0.042% Inhal Sol (1.25 mg/3 mL) UD INH SCH ×2 (07:35→19:47)
[2017-01-23] MEDS: (Novolog) Insulin Aspart, Recombinant 100 u/ml 10 ml vial SC SCH ×4 (08:09→23:07)
[2017-01-23] MEDS: Calcium-Vit D 500 mg-200 Units Tab UD PO SCH ×2 (09:12→17:54)
--- NOTE | 2017-01-23 09:48 | CP.PCM.PN ---
<Camilla Chavira - Last Filed: 01/23/17 20:39> Subjective - Date & Time of Evaluation Date of Evaluation: 01/23/17 Time of Evaluation: 07:00 - Subjective Subjective: PGY1 Medicine Note - Dr. Wright's service: Patient seen and examined at bedside this AM. Patient refused labs as she stated she is bruised from constant blood work. Patient denies chest pain, palpitations, nausea, vomitting, diarrhea, constipation, dysuria. Objective - Vital Signs/Intake and Output Vital Signs (last 24 hours): Temp Pulse Resp BP Pulse Ox 98 F 57 L 20 130/85 95 01/23/17 08:40 01/23/17 08:40 01/23/17 08:40 01/23/17 09:10 01/23/17 08:40 Intake and Output: 01/23/17 01/23/17 06:59 18:59 Intake Total 600 Balance 600 - Medications Medications: Current Medications Albuterol Sulfate (Albuterol 0.042% Inhal Bibi (1.25mg/3ml) Ud) 1.25 mg INH RBID [facility] Last Admin: 01/23/17 07:35 Dose: 1.25 mg Albuterol Sulfate (Albuterol 0.042% Inhal Bibi (1.25mg/3ml) Ud) 1.25 mg INH RQ6 PRN PRN Reason: Shortness of Breath Aspirin (Ecotrin) 81 mg PO DAILY [facility] Last Admin: 01/23/17 09:10 Dose: 81 mg Calcium/Vitamin D (Oyster Shell Calcium/Vitamin D 500 Mg-200 Iu) 1 tab PO BID [facility] Last Admin: 01/23/17 09:12 Dose: 1 tab Clopidogrel Bisulfate (Plavix) 75 mg PO DAILY [facility] Last Admin: 01/23/17 09:10 Dose: 75 mg Famotidine (Pepcid) 20 mg PO DAILY [facility] Last Admin: 01/23/17 09:10 Dose: 20 mg Furosemide (Lasix) 40 mg PO DAILY [facility] Last Admin: 01/23/17 09:10 Dose: 40 mg Heparin Sodium (Porcine) (Heparin) 5,000 units SC Q12 [facility] Last Admin: 01/23/17 09:10 Dose: 5,000 units Insulin Aspart (Novolog) 0 unit SC ACHS [facility] PRN Reason: Protocol Last Admin: 01/23/17 08:09 Dose: 2 unit Losartan Potassium (Cozaar) 25 mg PO DAILY [facility] Last Admin: 01/23/17 09:13 Dose: 25 mg Meclizine HCl (Antivert) 12.5 mg PO DAILY [facility] Last Admin: 01/23/17 09:10 Dose: 12.5 mg Rosuvastatin Calcium (Crestor) 5 mg PO HS [facility] Last Admin: 01/22/17 22:55 Dose: 5 mg - Labs Labs: APTT 28 SECONDS (21-34) 01/22/17 22:53 - Constitutional Appears: No Acute Distress - Respiratory Exam Respiratory Exam: Clear to Ausculation Bilateral, NORMAL BREATHING PATTERN. absent: Respiratory Distress - Cardiovascular Exam Cardiovascular Exam: REGULAR RHYTHM - GI/Abdominal Exam GI & Abdominal Exam: Soft, Normal Bowel Sounds. absent: Tenderness - Extremities Exam Extremities Exam: absent: Calf Tenderness, Pedal Edema - Neurological Exam Neurological Exam: Alert, Oriented x3 Assessment and Plan - Assessment and Plan (Free Text) Assessment: 86 year old female with past medical history of coronary artery disease , hypertension, diabetes, abdominal hernia, gastritis, anxiety, asthma, and COPD presented to the ED on 01/22/17 with non radiating chest pain. Plan: 1.) Chest Pain - YADIRA negative x2 - EKG with LBBB - CXR - Rt lung base consolidative changes. See full report. - Consult Cardio, Dr. Hernandez --> help appreciated - f/u Echo - f/u Lexiscan stress test - CT chest no acute findings - f/u AM labs - f/u YADIRA x1 2.) Asymptomatic Bacteremia - Urine culture: Gram positive Cocci 3.) History of Asthma - Albuterol 1.25mg INH BID [facility] - Albuterol 1.25mg INH Q6H PRN due to shortness of breath 4.) Acute Kidney Injury - RODGER likely due to dehydration - BUN/Cr: 50/1.4 5.) History of Cornary Artery Disease -ASA 81mg po daily -Plavix 75mg po daily -Crestor 5mg po hs 6.) History of Hypertension -BP 107/64 on admission. -ASA 81mg po daily -Losartan 25mg PO qd 7.) History of Gastritis - Pepcid 20mg po daily 8.) History of Diabetes Type2 -Accucheck -RISS low -HgbA1c 7.1 9) Prophylactic -SCDs -Pepcid 20mg po daily -Heparin 5000U SC Q12 -PT/OT <Torie Wright V - Last Filed: 01/24/17 00:13> Objective - Vital Signs/Intake and Output Vital Signs (last 24 hours): Temp Pulse Resp BP Pulse Ox 97.9 F 54 L 18 125/54 L 97 01/23/17 16:25 01/23/17 16:25 01/23/17 16:25 01/23/17 16:25 01/23/17 16:25 - Medications Medications: Current Medications Albuterol Sulfate (Albuterol 0.042% Inhal Bibi (1.25mg/3ml) Ud) 1.25 mg INH RBID [facility] Last Admin: 01/23/17 19:47 Dose: 1.25 mg Albuterol Sulfate (Albuterol 0.042% Inhal Bibi (1.25mg/3ml) Ud) 1.25 mg INH RQ6 PRN PRN Reason: Shortness of Breath Aspirin (Ecotrin) 81 mg PO DAILY [facility] Last Admin: 01/23/17 09:10 Dose: 81 mg Calcium/Vitamin D (Oyster Shell Calcium/Vitamin D 500 Mg-200 Iu) 1 tab PO BID [facility] Last Admin: 01/23/17 17:54 Dose: 1 tab Clopidogrel Bisulfate (Plavix) 75 mg PO DAILY [facility] Last Admin: 01/23/17 09:10 Dose: 75 mg Famotidine (Pepcid) 20 mg PO DAILY [facility] Last Admin: 01/23/17 09:10 Dose: 20 mg Furosemide (Lasix) 40 mg PO DAILY [facility] Last Admin: 01/23/17 09:10 Dose: 40 mg Heparin Sodium (Porcine) (Heparin) 5,000 units SC Q12 [facility] Last Admin: 01/23/17 22:53 Dose: 5,000 units Insulin Aspart (Novolog) 0 unit SC ACHS [facility] PRN Reason: Protocol Last Admin: 01/23/17 23:07 Dose: Not Given Losartan Potassium (Cozaar) 25 mg PO DAILY [facility] Last Admin: 01/23/17 09:13 Dose: 25 mg Meclizine HCl (Antivert) 12.5 mg PO DAILY [facility] Last Admin: 01/23/17 09:10 Dose: 12.5 mg Rosuvastatin Calcium (Crestor) 5 mg PO HS [facility] Last Admin: 01/23/17 22:53 Dose: 5 mg - Labs Labs: APTT 28 SECONDS (21-34) 01/22/17 22:53 Attending/Attestation - Attestation I have personally seen and examined this patient.: Yes I have fully participated in the care of the patient.: Yes I have reviewed all pertinent clinical information, including history, physical exam and plan: Yes Notes (Text): Patient seen, examined and case discussed with day-time resident. Patient seen in the afternoon, patient completed echocardiogram this morning. Patient refused the third YADIRA this morning in-spite education provided by Czech speaking resident; does not like her blood getting taken. Reviewed EKGs : LBBB present and compared to prior admission as well. Patient denies acute complaints but reports she did feel pressure when she had the echocardiogram this morning. Patient denies urinary complaints; denies dysuria, denies frequency, denies hematuria. Discussed with cardiology, patient to have a stress test in the AM. Change status changed to inpatient for ongoing cardiac workup with patient with significant cardiac risk factors PT/OT eval Assessment/Plan 1.) Chest Pain - YADIRA negative x2 - EKG with LBBB X3 - CXR - Rt lung base consolidative changes. See full report. - Consult Cardio, Dr. Hernandez --> help appreciated - f/u Echo pending report - f/u Lexiscan stress test in AM - CT chest: no acute findings, coarse linear density in right lung apex, nonobstructing calcifications, low density lesion in left mid kidney, calcifications within in spleen, no evidence of atelectasis or consolidation at right lung bas - f/u YADIRA x1 cardiac risk: cad, dm, htn, smoker 2.) Asymptomatic Bacteriuria - Patient is not symptomatic of urinary tract infection - Urine culture: Gram positive Cocci 3.) History of Asthma - Albuterol 1.25mg INH BID [facility] - Albuterol 1.25mg INH Q6H PRN due to shortness of breath 4.) Acute Kidney Injury - RODGER likely due to dehydration - BUN/Cr: 50/1.4 5.) History of Cornary Artery Disease -ASA 81mg po daily -Plavix 75mg po daily -Crestor 5mg po hs 6.) History of Hypertension -BP 107/64 on admission. -ASA 81mg po daily -Losartan 25mg PO qdaily 7.) History of Gastritis - Pepcid 20mg po daily 8.) History of Diabetes Type2 -Accuchecks QAC and HS -RISS low -HgbA1c 7.1 9) Prophylactic -SCDs -Pepcid 20mg po daily -Heparin 5000U SC Q12 -PT/OT eval
[2017-01-23 11:49] LABS: BASO % 0.4 % (0.0-2.0); EOS # 0.2 K/uL (0.0-0.7); EOS % 4.2 % (0.0-4.0); HEMATOCRIT 28.4 % (34.0-47.0); LYMPH # 1.6 K/uL (1.0-4.3); LYMPH % 31.3 % (20.0-40.0); MEAN CELL VOLUME 87.9 fL (81.0-99.0); MEAN CORPUSCULAR HEMOGLOBIN 28.9 pg (27.0-31.0); MEAN CORPUSCULAR HGB CONC 32.9 g/dL (33.0-37.0); MONO % 19.4 % (0.0-10.0); RED CELL DISTRIBUTION WIDTH 14.3 % (11.5-14.5); WHITE BLOOD COUNT 5.2 K/uL (4.8-10.8)
[2017-01-23 11:56] LABS: CHLORIDE 97 mmol/L (98-107); POTASSIUM 3.7 mmol/L (3.6-5.2); SODIUM 136 mmol/L (132-148)
[2017-01-23 11:58] LABS: AST/SGOT 48 U/L (14-36); BILIRUBIN,TOTAL 0.4 mg/dL (0.2-1.3); CARBON DIOXIDE 31 mmol/L (22-30); GFR AFRICAN-AMERICAN 43
[2017-01-23 11:59] LABS: ALB/GLOB RATIO 1.2 (1.0-2.1); ALKALINE PHOSPHATASE 71 U/L (38-126); ALT/SGPT 35 U/L (9-52); BLOOD UREA NITROGEN 50 mg/dL (7-17); CALCIUM 8.5 mg/dl (8.6-10.4); GLUCOSE,RANDOM 238 mg/dL (65-105); MAGNESIUM 1.9 mg/dL (1.6-2.3); PHOSPHOROUS 3.7 mg/dL (2.5-4.5); TOTAL PROTEIN 6.2 g/dL (6.3-8.3)
[2017-01-24 00:15] VITALS: RESP 20
--- NOTE | 2017-01-24 05:51 | CP.PCM.PN ---
Objective - Vital Signs/Intake and Output Vital Signs (last 24 hours): Temp Pulse Resp BP Pulse Ox 97.9 F 60 20 138/74 98 01/23/17 23:15 01/24/17 00:00 01/23/17 23:15 01/23/17 23:15 01/23/17 23:15 - Medications Medications: Current Medications Albuterol Sulfate (Albuterol 0.042% Inhal Bibi (1.25mg/3ml) Ud) 1.25 mg INH RBID [facility] Last Admin: 01/23/17 19:47 Dose: 1.25 mg Albuterol Sulfate (Albuterol 0.042% Inhal Bibi (1.25mg/3ml) Ud) 1.25 mg INH RQ6 PRN PRN Reason: Shortness of Breath Aspirin (Ecotrin) 81 mg PO DAILY [facility] Last Admin: 01/23/17 09:10 Dose: 81 mg Calcium/Vitamin D (Oyster Shell Calcium/Vitamin D 500 Mg-200 Iu) 1 tab PO BID [facility] Last Admin: 01/23/17 17:54 Dose: 1 tab Clopidogrel Bisulfate (Plavix) 75 mg PO DAILY [facility] Last Admin: 01/23/17 09:10 Dose: 75 mg Famotidine (Pepcid) 20 mg PO DAILY [facility] Last Admin: 01/23/17 09:10 Dose: 20 mg Furosemide (Lasix) 40 mg PO DAILY [facility] Last Admin: 01/23/17 09:10 Dose: 40 mg Heparin Sodium (Porcine) (Heparin) 5,000 units SC Q12 [facility] Last Admin: 01/23/17 22:53 Dose: 5,000 units Insulin Aspart (Novolog) 0 unit SC ACHS [facility] PRN Reason: Protocol Last Admin: 01/23/17 23:07 Dose: Not Given Losartan Potassium (Cozaar) 25 mg PO DAILY [facility] Last Admin: 01/23/17 09:13 Dose: 25 mg Meclizine HCl (Antivert) 12.5 mg PO DAILY [facility] Last Admin: 01/23/17 09:10 Dose: 12.5 mg Rosuvastatin Calcium (Crestor) 5 mg PO HS [facility] Last Admin: 01/23/17 22:53 Dose: 5 mg - Labs Labs: APTT 28 SECONDS (21-34) 01/22/17 22:53
[2017-01-24] MEDS: (Novolog) Insulin Aspart, Recombinant 100 u/ml 10 ml vial SC SCH ×2 (06:51→12:01)
[2017-01-24 07:02] LABS: BASO % 0.8 % (0.0-2.0); EOS # 0.2 K/uL (0.0-0.7); EOS % 3.9 % (0.0-4.0); HEMATOCRIT 28.6 % (34.0-47.0); LYMPH # 1.9 K/uL (1.0-4.3); LYMPH % 38.9 % (20.0-40.0); MEAN CELL VOLUME 87.5 fL (81.0-99.0); MEAN CORPUSCULAR HEMOGLOBIN 29.4 pg (27.0-31.0); MEAN CORPUSCULAR HGB CONC 33.6 g/dL (33.0-37.0); MEAN PLATELET VOLUME 8.4 fL (7.2-11.7); MONO # 0.9 K/uL (0.0-0.8); MONO % 17.1 % (0.0-10.0); NRBC % 0.1 % (0.0-2.0); RED CELL DISTRIBUTION WIDTH 13.7 % (11.5-14.5)
[2017-01-24 07:27] LABS: POTASSIUM 3.9 mmol/L (3.6-5.2)
[2017-01-24] MEDS: Albuterol 0.042% Inhal Sol (1.25 mg/3 mL) UD INH SCH (07:28)
[2017-01-24 07:29] LABS: ALB/GLOB RATIO 1.1 (1.0-2.1); BILIRUBIN,TOTAL 0.5 mg/dL (0.2-1.3); TOTAL PROTEIN 6.5 g/dL (6.3-8.3)
[2017-01-24 07:30] LABS: MAGNESIUM 1.9 mg/dL (1.6-2.3); PHOSPHOROUS 3.5 mg/dL (2.5-4.5)
[2017-01-24] MEDS ORDERED: Aminophylline 25 mg/ml Inj ONE (07:53)
[2017-01-24] MEDS: Calcium-Vit D 500 mg-200 Units Tab UD PO SCH (10:44)
[2017-01-24] MEDS: Sodium Chloride 0.9% 1,000 ML IV SCH ×2 (12:00→14:08)
[2017-01-24] MEDS ORDERED: Albuterol 0.042% Inhal Sol (1.25 mg/3 mL) UD INH SCH ×2 (14:00)
--- NOTE | 2017-01-24 15:45 | CARD ---
APPROVED REPORT Protocol: PHARMACOLOGICAL STRESS Test Type: LEXISCAN Test Indications: CHEST PAIN Medications: LIST SCAN Medical History: CHEST PAIN Target HR: 134 bpm Resting ECG: left bundle branch block Resting Heart Rate: 63 bpm Resting Blood Pressure: 130/68mmHg submaximum (85%): 114 bpm TEST SUMMARY [id number]/68.0. INFUSIONDOSE 100:300.00.01.067/.0. [id number]/60.0. PROCEDURE Pharmacologic stress testing was performed using 0.4mg per 5ml of regadenoson given intravenously over 7-10 seconds. POST EXERCISE Reason for Termination: Lexiscan protocol completed Target HR: No Max HR: 67 bpm 55% of Maximum Predicted HR: 134 bpm Exercise duration: 00:30 min:sec, 0 Stage Exercise capacity: 1.0METs Max Blood Pressure: 140/60mmHg Blood Pressure response to exercise: normal resting BP - appropriate response Heart Rate response to exercise: appropriate Chest Pain: No, none Angina index: 0 Arrhythmia: No, none ST Change: No, none Deviation: 0 mm INTERPRETATION Stress EKG Conclusion: Nuclear report to follow EXAM: Myocardial Perfusion REST/STRESS Imaging Protocol The imaging protocol used to acquire images was Rest Tc-99m/stress Tc-99m 1 day Rest Spect myocardial perfusion imaging was performed in supine position 55 minutes following the injection of 12.4 mCi of Tc-99 Myoview. Gated Stress Spect was performed 45 minutes after intravenous 32.1 mci Tc-99 Myoview injection. The images were gated to evaluate regional wall motion and calculate ventricular ejection fraction.Images were reconstructed using backfilter projection method in short horizontal and verticle long axis. Spect slices were generated. RESTING DATA EDV72.82eiZC2.90L/min ESV23.00mlMyocardial Sbgr954.00g Av. Heart Rate59.00bpm EF68.00% STRESS DATA EDV71.67vfRM2.00L/min ESV24.00mlMyocardial Whft069.00g EF66.00% Regional WT score at stress:2.00 Regional WM score at stress:0.00 Summed WT score at stress:22.00 Av. Heart Rate63.00bpmSummed WM score at stress:2.00 LV Perf. Quant 17 Seg. SSS2.00 17 Seg. SRS12.00 17 Seg. SDS0.00 Stress Defect Extent (% LAD)0.00Rest Defect Extent (% LAD)5.60Rev. Defect Extent (% LAD)0.00 Stress Defect Extent (% LCX)17.50Rest Defect Extent (% LCX)35.00Rev. Defect Extent (% LCX)1.30 Stress Defect Extent (% RCA)0.00Rest Defect Extent (% RCA)24.40Rev. Defect Extent (% RCA)0.00 Stress Defect Extent (% PAT)3.30Rest Defect Extent (% PAT)23.70Rev. Defect Extent (% PAT)0.20 Other Information Quality:Good IMPRESSION Normal Myocardial Perfusion exercise stress study Left Ventricle LV Function:Left ventricle systolic function is normal. The Ejection Fraction is >55%. Conclusion 1. Normal Lexiscan nuclear stress test
--- NOTE | 2017-01-24 15:56 | CP.PCM.DIS ---
Provider - Provider Date of Admission: 01/23/17 17:15 Attending physician: Torie Wright DO Time Spent in preparation of Discharge (in minutes): 40 Diagnosis - Discharge Diagnosis (1) Chest pain Status: Resolved Priority: High Comment: See hospital summary for further details. (2) Anxiety Status: Chronic Comment: See hospital summary for further details. (3) Asthma Status: Chronic Comment: See hospital summary for further details. (4) CAD (coronary artery disease) Status: Chronic Priority: High Comment: See hospital summary for further details. (5) COPD with acute exacerbation Status: Chronic Comment: See hospital summary for further details. (6) COPD exacerbation Status: Chronic Comment: See hospital summary for further details. (7) DM type 2 (diabetes mellitus, type 2) Status: Chronic Comment: See hospital summary for further details. (8) Gastritis Status: Chronic Priority: Medium Comment: See hospital summary for further details. Hospital Course - Lab Results Lab Results: Most Recent Lab Values WBC 5.0 K/uL (4.8-10.8) 01/24/17 06:56 RBC 3.27 Mil/uL (3.80-5.20) L 01/24/17 06:56 Hgb 9.6 g/dL (11.0-16.0) L 01/24/17 06:56 Hct 28.6 % (34.0-47.0) L 01/24/17 06:56 MCV 87.5 fL (81.0-99.0) 01/24/17 06:56 MCH 29.4 pg (27.0-31.0) 01/24/17 06:56 MCHC 33.6 g/dL (33.0-37.0) 01/24/17 06:56 RDW 13.7 % (11.5-14.5) 01/24/17 06:56 Plt Count 273 K/uL (130-400) 01/24/17 06:56 MPV 8.4 fL (7.2-11.7) 01/24/17 06:56 Neut % (Auto) 39.3 % (50.0-75.0) L 01/24/17 06:56 Lymph % (Auto) 38.9 % (20.0-40.0) 01/24/17 06:56 [place] % (Auto) 17.1 % (0.0-10.0) H 01/24/17 06:56 Eos % (Auto) 3.9 % (0.0-4.0) 01/24/17 06:56 Baso % (Auto) 0.8 % (0.0-2.0) 01/24/17 06:56 Neut # 2.0 K/uL (1.8-7.0) 01/24/17 06:56 Lymph # 1.9 K/uL (1.0-4.3) 01/24/17 06:56 Lea # 0.9 K/uL (0.0-0.8) H 01/24/17 06:56 Eos # 0.2 K/uL (0.0-0.7) 01/24/17 06:56 Baso # 0.0 K/uL (0.0-0.2) 01/24/17 06:56 APTT 28 SECONDS (21-34) 01/22/17 22:53 Sodium 139 mmol/L (132-148) 01/24/17 06:56 Potassium 3.9 mmol/L (3.6-5.2) 01/24/17 06:56 Chloride 99 mmol/L (98-107) 01/24/17 06:56 Carbon Dioxide 32 mmol/L (22-30) H 01/24/17 06:56 Anion Gap 12 (10-20) 01/24/17 06:56 BUN 45 mg/dL (7-17) H 01/24/17 06:56 Creatinine 1.3 MG/DL (0.7-1.2) H 01/24/17 06:56 Est GFR ( Amer) 47 01/24/17 06:56 Est GFR (Non-Af Amer) 39 01/24/17 06:56 POC Glucose (mg/dL) 189 mg/dL (65-110) H 01/24/17 06:17 Random Glucose 172 mg/dL (65-105) H 01/24/17 06:56 Calcium 9.0 mg/dl (8.6-10.4) 01/24/17 06:56 Phosphorus 3.5 mg/dL (2.5-4.5) 01/24/17 06:56 Magnesium 1.9 mg/dL (1.6-2.3) 01/24/17 06:56 Total Bilirubin 0.5 mg/dL (0.2-1.3) 01/24/17 06:56 AST 30 U/L (14-36) 01/24/17 06:56 ALT 28 U/L (9-52) 01/24/17 06:56 Alkaline Phosphatase 68 U/L (38-126) 01/24/17 06:56 Total Creatine Kinase 70 U/L (30-135) 01/23/17 11:39 CK-MB (Mass) 1.11 ng/mL (0.0-3.38) 01/23/17 11:39 Troponin I 0.0160 ng/mL (0.00-0.120) 01/22/17 14:35 Troponin I, Quant < 0.0120 ng/mL (0.00-0.120) 01/23/17 11:39 NT-Pro-B Natriuret Pep 1030 pg/mL (0-900) H 01/22/17 14:35 Total Protein 6.5 g/dL (6.3-8.3) 01/24/17 06:56 Albumin 3.5 g/dL (3.5-5.0) 01/24/17 06:56 Globulin 3.0 gm/dL (2.2-3.9) 01/24/17 06:56 Albumin/Globulin Ratio 1.1 (1.0-2.1) 01/24/17 06:56 Lipase 24 U/L (23-300) 01/22/17 14:35 Urine Color Straw (YELLOW) 01/22/17 17:28 Urine Clarity Clear (Clear) 01/22/17 17:28 Urine pH 5.0 (5.0-8.0) 01/22/17 17:28 Ur Specific [place] 1.006 (1.003-1.030) 01/22/17 17:28 Urine Protein Negative mg/dL (NEGATIVE) 01/22/17 17:28 Urine Glucose (UA) Normal mg/dL (Normal) 01/22/17 17:28 Urine Ketones Negative mg/dL (NEGATIVE) 01/22/17 17:28 Urine Blood Negative (NEGATIVE) 01/22/17 17:28 Urine Nitrate Negative (NEGATIVE) 01/22/17 17:28 Urine Bilirubin Negative (NEGATIVE) 01/22/17 17:28 Urine Urobilinogen Normal mg/dL (0.2-1.0) 01/22/17 17:28 Ur Leukocyte Esterase Neg [place]/uL (Negative) 01/22/17 17:28 Urine WBC (Auto) < 1 /hpf (0-5) 01/22/17 17:28 Ur Renal Epithelial Cell < 1 /hpf (0-3) 01/22/17 17:28 Urine Bacteria Rare (<OCC) 01/22/17 17:28 - Hospital Course Hospital Course: 86yo female with PMHx CAD, HTN, DM, abdominal hernia, gastritis, anxiety, asthma , COPD - presents c/o non-radiating chest pain with associated Dyspnea and vomiting since last night. She describes the chest pain as sharp, lasting roughly 10 minutes at a time, and localized over the left chest wall. The pain is not reproducible to palpation, but is reproducible to deep inhalation. She has experienced 3 episodes of chest pain, followed by dyspnea and vomiting (one last night and two this morning). The 3rd episode of chest pain prompted he to come to the ED. She also reports mild dizziness this morning, and found some relief by taking her home Meclizine (Rx for vertigo). She also reports chronic decreased appetite, and has not eaten or drank adequately in roughly 3 days. She admits to using a nebulizer device at home for her Asthma, however she has lost her face mask. Admits to malaise, chest pain on inspiration, SOB, n/v, and mild constipation. Denies f/c, dizziness, change in vision, LE edema, or any additional complaints. Patient was admitted to telemetry for monitoring. Cardiology (Dr. Hernandez) was consulted on the case. Per cardiac workup, patient completed: - YADIRA negative X3 with accompanying EKGs showing paced rhythm and a left bundle branch block. - Chest X-ray performed 01/22/17 which was negative for pulmonary embolism - Cat Scan of the chest showed no acute findings 01/22/17. - Lexiscan nuclear stress test performed 01/24/17 which resulted as normal. Patient's home medications for her chronic conditions: coronary artery disease, hypertension, diabetes were resumed and adjusted during hospitalization. Patient refused rehab per discharge planning, requested to go home. Patient's primary medical doctor Dr. Gomez informed of patient's discharge from hospitalization. Patient is medically stable for discharge. Per cardioology patient recommended to follow up in 1-2 months in the office. Patient requested to go home and refuses rehab. Home medications reconciled. Patient's valsartin, hydralzine and norvasc discontinued. Patient's blood pressure is controlled with cozaar and lasix. No new perscriptions upon discharge. Patient should return to ED immediately if symptoms return or worsen. Instructions discussed with patient who understood and agreed. This is a summary of patient's hospitalization please refer to EMR for further details of the record. Discharge Exam - Eye Exam Eye Exam: Normal appearance - Respiratory Exam Respiratory Exam: Clear to PA & Lateral, NORMAL BREATHING PATTERN - Cardiovascular Exam Cardiovascular Exam: REGULAR RHYTHM - GI/Abdominal Exam GI & Abdominal Exam: Normal Bowel Sounds, Soft. absent: Tenderness - Neurological Exam Neurological exam: Alert, Oriented x3 Discharge Plan - Follow Up Plan Condition: STABLE Disposition: HOME/ ROUTINE Instructions: Chest Pain (DC), Dehydration (DC), Heart Healthy Diet (DC) Additional Instructions: Per cardioology patient recommended to follow up in 1-2 months in the office. Patient requested to go home and refuses rehab. Home medications reconciled. Patient's valsartin, hydralzine and norvasc discontinued. Patient's blood pressure is controlled with cozaar and lasix. No new perscriptions upon discharge. Patient should return to ED immediately if symptoms return or worsen. Instructions discussed with patient who understood and agreed. Referrals: Andrew Hernandez MD [Staff Provider] - 4 Weeks Chuck Gomez MD [Staff Provider] - 1 Week
[2017-01-24 17:01] VITALS: BP 142/60; PULSE 67; TEMP 98; O2SAT 97
--- NOTE | 2017-01-25 00:35 | CARD ---
APPROVED REPORT EKG Measurement Heart [id number] <Conclusion> Normal sinus rhythm Left bundle branch block Abnormal ECG
--- NOTE | 2017-01-25 09:00 | CARD ---
APPROVED REPORT EXAM: Two-dimensional and M-mode echocardiogram with Doppler and color Doppler. Other Information Quality : GoodRhythm : NSR INDICATION Dyspnea Cardiac Disease: CAD Chest Pain COPD RISK FACTORS Hypertension Diabetes M-Mode DIMENSIONS RVDd1.76 (2.1-3.2cm)Left Atrium (MM)4.52 (2.5-4.0cm) IVSd0.85 (0.7-1.1cm)Aortic Root2.83 (2.2-3.7cm) LVDd5.27 (4.0-5.6cm)Aortic Cusp Exc.1.66 (1.5-2.0cm) PWd1.07 (0.7-1.1cm)FS (%) 27 % LVDs3.84 (2.0-3.8cm)LVEF (%)52 (>50%) Mitral Valve MV E Cozipenv90.0cm/sMV A Sdntkanw798.5cm/sE/A ratio0.7 TDI E/Lateral E'0.0E/Medial E'0.0 Tricuspid Valve TR Peak Tzrjcvkv466nk/sTR Peak Gr.[id number] LEFT VENTRICLE The left ventricle is normal size. There is normal left ventricular wall thickness. The left ventricular function is normal. The left ventricular ejection fraction is within the normal range. There is normal LV segmental wall motion. Transmitral Doppler flow pattern is Grade I-abnormal relaxation pattern. RIGHT VENTRICLE The right ventricle is normal size. There is normal right ventricular wall thickness. The right ventricular systolic function is normal. ATRIA The left atrium is moderately dilated. The right atrium is moderately dilated. Possible PFO, difficult to r/o. Recommend contrast echo SALINE for eval if clinically indicated. No evidence of ASD or large defect. AORTIC VALVE The aortic valve is mildly sclerotic. No aortic regurgitation is present. There is no aortic valvular stenosis. MITRAL VALVE Mitral annular calcification is mild. There is no evidence of mitral valve prolapse. There is no mitral valve stenosis. There is MILD mitral valve regurgitation noted. TRICUSPID VALVE The tricuspid valve is normal in structure. There is mild tricuspid regurgitation. PAP = 30-35 RAP 5 There is no tricuspid valve prolapse or vegetation. There is no tricuspid valve stenosis. PULMONIC VALVE The pulmonary valve is normal in structure. There is mild to moderate pulmonic valvular regurgitation. There is no pulmonic valvular stenosis. GREAT VESSELS The aortic root is normal in size. The IVC is normal in size and collapses >50% with inspiration. PERICARDIAL EFFUSION There is no pericardial effusion. <Conclusion> The left ventricular ejection fraction is within the normal range. Transmitral Doppler flow pattern is Grade I-abnormal relaxation pattern. The left atrium is moderately dilated. The right atrium is moderately dilated. Possible PFO, difficult to r/o. Recommend contrast echo SALINE for eval if clinically indicated. No evidence of ASD or large defect. The aortic valve is mildly sclerotic. Mitral annular calcification is mild. There is MILD mitral valve regurgitation noted. There is mild tricuspid regurgitation. PAP = 30-35 RAP 5 There is mild to moderate pulmonic valvular regurgitation.
== END 2017-01-24 18:40 | disposition home or self-care (01) | DRG 683 ==
LOC: C.ER 12:56 → C.9E 15:52 → C.6T 18:12 → OBSVTOIN 01-23 17:15
PROVIDERS: ADMIT Hospitalist; ATTEND Hospitalist
DX: N17.9 Acute kidney failure, unspecified (principal); J44.1 Chronic obstructive pulmonary disease with (acute) exacerbation; E11.9 Type 2 diabetes mellitus without complications; E86.0 Dehydration; K29.70 Gastritis, unspecified, without bleeding; I25.10 Atherosclerotic heart disease of native coronary artery without angina pectoris; I10 Essential (primary) hypertension; F41.9 Anxiety disorder, unspecified; K46.9 Unspecified abdominal hernia without obstruction or gangrene; F17.200 Nicotine dependence, unspecified, uncomplicated; E78.00 Pure hypercholesterolemia, unspecified; J45.909 Unspecified asthma, uncomplicated; K59.00 Constipation, unspecified; M06.9 Rheumatoid arthritis, unspecified; M81.0 Age-related osteoporosis without current pathological fracture; Z53.20 Procedure and treatment not carried out because of patient's decision for unspecified reasons; Z95.5 Presence of coronary angioplasty implant and graft

== ENCOUNTER 2017-01-31 18:34 | Emergency (ER) | payer MEDICARE, MEDICAID ==
[2017-01-31 18:35] VITALS: BMI 23.6
[2017-01-31 18:48] VITALS: TEMP 98.5
[2017-01-31] MEDS ORDERED: Sodium Chloride 0.9% 1,000 ML IV ONE (19:12)
--- NOTE | 2017-01-31 19:14 | C.PDOC ---
History Of Present Illness Patient is an 86 year old female who presents to the ER with a complaint of high blood sugar at home; states it was over 300. Patient is complaining of a headache and dizziness; denies nausea or vomiting. Chief Complaint (Nursing): High Blood Sugar History Per: Patient History/Exam Limitations: no limitations Onset/Duration Of Symptoms: Hrs Current Symptoms Are (Timing): Still Present Current Diabetic Medications: Insulin Causative (Exacerbating) Factor(s): Other (Not known) Associated Infectious Symptoms: Other (Headache, Dizziness). denies: Nausea, Vomiting Recent travel outside of the [place]: No Past Medical History Reviewed: Historical Data, Nursing Documentation, Vital Signs Vital Signs: Last Vital Signs Temp 98.5 F 01/31/17 18:42 Pulse 76 01/31/17 18:42 Resp 18 01/31/17 18:42 BP 100/53 L 01/31/17 18:42 Pulse Ox 98 01/31/17 20:50 - Medical History PMH: Anemia, Anxiety, Arthritis, Asthma, Back Problems (HX CHRONIC BACK PAIN), CAD, COPD, Diabetes, Fractures (left wrist AND RT. HIP), Gastritis, HTN, Hypercholesterolemia, Osteoporosis, Rheumatoid Arthritis Surgical History: Coronary Stent (cad cath 02/2016 with stent) - [facility] Procedures APPLICATION OF SPLINT (06/18/14) EXCISION OF ASCENDING COLON, ENDO, DIAGN (12/05/16) EXCISION OF STOMACH, ENDO, DIAGN (12/05/16) FLUOROSCOPY OF LEFT HEART USING LOW OSMOLAR CONTRAST (02/05/16) GAIT TRAINING/AMBULAT TREATMENT USING ASSIST EQUIPMENT (11/08/15) INTRODUCE ANTI-INFLAM IN PERIPH NRV, PLEXI, PERC (11/08/15) INTRODUCE REGIONAL ANESTH IN PERIPH NRV, PLEXI, PERC (11/08/15) MEASURE OF CARDIAC SAMPL & PRESSURE, L HEART, PERC APPROACH (02/05/16) NEBULIZER THERAPY (06/16/14) REPAIR LEFT UPPER ARM TENDON, OPEN APPROACH (11/08/15) REPAIR OF HAMMER TOE (07/17/13) REPOSITION LEFT HUMERAL SHAFT WITH INT FIX, OPEN APPROACH (11/08/15) TRANSFUSE NONAUT RED BLOOD CELLS IN PERIPH VEIN, PERC (12/05/16) Family History: States: Unknown Family Hx - Social History Hx Tobacco Use: No Hx Alcohol Use: No Hx Substance Use: No - Immunization History Hx Tetanus Toxoid Vaccination: Yes (3 mos. ago) Hx Influenza Vaccination: No ("Not sure'') Hx Pneumococcal Vaccination: No (''Not sure'') Review Of Systems Constitutional: Negative for: Fever, Chills Gastrointestinal: Negative for: Nausea, Vomiting Neurological: Positive for: Headache, Dizziness Physical Exam - Physical Exam Appears: Non-toxic, No Acute Distress Skin: Normal Color, Warm, Dry Head: Atraumatic, Normacephalic Oral Mucosa: Moist Neck: Normal, Supple Chest: Symmetrical, No Tenderness Cardiovascular: Rhythm Regular, No Murmur Respiratory: Normal Breath Sounds, No Rales, No Rhonchi, No Wheezing Gastrointestinal/Abdominal: Soft, No Tenderness Neurological/Psych: Oriented x3, Normal Speech, Normal Cognition, Other (No focal deficits) ED Course And Treatment - Laboratory Results Result Diagrams: 01/31/17 19:46 01/31/17 19:46 O2 Sat by Pulse Oximetry: 98 (room air) Pulse Ox Interpretation: Normal - CT Scan/US Head CT Other Rad Studies (CT/US): Read By Radiologist, Radiology Report Reviewed CT/US Interpretation: EXAM: CT Head Without Intravenous Contrast. CLINICAL HISTORY: 86 years old, female; Signs and symptoms; Dizziness; Additional info: Dizziness. TECHNIQUE: Axial computed tomography images of the head/brain without intravenous contrast. This CT exam. was performed using one or more of the following dose reduction techniques: automated exposure. control, adjustment of the mA and/or kV according to patient size, and/or use of iterative. reconstruction technique. EXAM DATE/TIME: 01/31/2017 7:12 PM. COMPARISON: Prior images are not available for review. Correlation is made with a report dated 01/11/17. FINDINGS: Brain: There is dilatation of sulci gyri and ventricles. There is no midline shift. There is decreased. attenuation in periventricular white matter. There are bilateral small age indeterminate basal ganglia. lacunar infarcts.. There are no focal masses. There are no focal hemorrhages. Roy-white. differentiation is visualized. Ventricles: See above. Bones: Cranial vault is intact. Soft tissues: unremarkable. Sinuses: There is no acute sinusitis. Ears and mastoids: Middle ears and mastoids are unremarkable. Orbits: Orbital contents are unremarkable. IMPRESSION: Atrophy and small vessel disease, age indeterminate basal ganglia lacunar infarcts,no bleed Progress Note: Head CT, EKG, blood work and urinalysis ordered. IV fluids administered. Disposition Counseled Patient/Family Regarding: Diagnosis - Disposition Referrals: [facility] [Outside] Disposition: HOME/ ROUTINE Disposition Time: 20:51 Condition: STABLE Instructions: Diabetes Mellitus Type 1 in Adults (ED), Diabetic Kidney Disease (ED) - POA Present On Arrival: None - Clinical Impression Clinical Impression: Diabetes mellitus, Diabetic nephropathy - Scribe Statement The provider has reviewed the documentation as recorded by the Scribe Provider Attestation: Enrique Aparicio All medical record entries made by the Scribe were at my direction and personally dictated by me. I have reviewed the chart and agree that the record accurately reflects my personal performance of the history, physical exam, medical decision making, and the department course for this patient. I have also personally directed, reviewed, and agree with the discharge instructions and disposition.
[2017-01-31 19:50] LABS: BASO # 0.1 K/uL (0.0-0.2); EOS # 0.2 K/uL (0.0-0.7); EOS % 2.8 % (0.0-4.0); HEMOGLOBIN 9.9 g/dL (11.0-16.0); LYMPH # 1.5 K/uL (1.0-4.3); LYMPH % 20.8 % (20.0-40.0); MEAN CELL VOLUME 88.2 fL (81.0-99.0); MEAN CORPUSCULAR HEMOGLOBIN 28.2 pg (27.0-31.0); MEAN PLATELET VOLUME 8.8 fL (7.2-11.7); MONO # 0.7 K/uL (0.0-0.8); MONO % 10.4 % (0.0-10.0); NEUT # 4.6 K/uL (1.8-7.0); RBC 3.5 Mil/uL (3.80-5.20); RED CELL DISTRIBUTION WIDTH 13.8 % (11.5-14.5)
[2017-01-31 20:00] LABS: ALBUMIN 3.6 g/dL (3.5-5.0)
[2017-01-31 20:03] LABS: ALB/GLOB RATIO 1.1 (1.0-2.1); AST/SGOT 25 U/L (14-36); BLOOD UREA NITROGEN 47 mg/dL (7-17); GFR AFRICAN-AMERICAN 29; GFR NON-AFRICAN AMERICAN 24
[2017-01-31 20:04] LABS: ALT/SGPT 23 U/L (9-52); CALCIUM 8.6 mg/dl (8.6-10.4)
--- NOTE | 2017-01-31 20:47 | CT ---
EXAM: CT Head Without Intravenous Contrast CLINICAL HISTORY: 86 years old, female; Signs and symptoms; Dizziness; Additional info: Dizzziness TECHNIQUE: Axial computed tomography images of the head/brain without intravenous contrast. This CT exam was performed using one or more of the following dose reduction techniques: automated exposure control, adjustment of the mA and/or kV according to patient size, and/or use of iterative reconstruction technique. EXAM DATE/TIME: 01/31/2017 7:12 PM COMPARISON: Prior images are not available for review. Correlation is made with a report dated 01/11/17 FINDINGS: Brain: There is dilatation of sulci gyri and ventricles. There is no midline shift. There is decreased attenuation in periventricular white matter. There are bilateral small age indeterminate basal ganglia lacunar infarcts.. There are no focal masses. There are no focal hemorrhages. Roy-white differentiation is visualized. Ventricles: See above Bones: Cranial vault is intact. Soft tissues: unremarkable Sinuses: There is no acute sinusitis. Ears and mastoids: Middle ears and mastoids are unremarkable. Orbits: Orbital contents are unremarkable. IMPRESSION: Atrophy and small vessel disease, age indeterminate basal ganglia lacunar infarcts, no bleed
[2017-01-31 21:06] VITALS: BP 144/55; PULSE 66; RESP 16; O2SAT 97
== END 2017-01-31 21:06 | disposition home or self-care (01) ==
LOC: C.ER 18:34
DX: E11.65 Type 2 diabetes mellitus with hyperglycemia (principal); E11.21 Type 2 diabetes mellitus with diabetic nephropathy

== ENCOUNTER 2017-02-15 19:34 | Observation (INO) | payer MEDICARE, MEDICAID ==
[2017-02-15 19:34] VITALS: BMI 23.6
--- NOTE | 2017-02-15 20:48 | C.PDOC ---
History Of Present Illness Patient is a 86 y/o female, whose PMHx includes HTN, CAD, diabetes, and asthma, presents to the ED for evaluation of body aches, generalized weakness, and chest pain for the last 2 days. Pt also reports constipation. Denies taking any OTC pain meds. Otherwise, denies any fever, cough, shortness of breath, abdominal pain, n/v/d, urinary symptoms, or any other complaints at this time. Time Seen by Provider: 02/15/17 20:14 Chief Complaint (Nursing): Chest Pain History Per: Patient History/Exam Limitations: no limitations Onset/Duration Of Symptoms: Days (2) Current Symptoms Are (Timing): Still Present Quality: "Pain" Associated Symptoms: denies: Nausea, Dyspnea, Diaphoresis, Syncope Modifying Factors: None Exacerbating Factors: None Alleviating Factors: None Recent travel outside of the [place]: No Additional History Per: Family (daughter) Past Medical History Reviewed: Historical Data, Nursing Documentation, Vital Signs Vital Signs: Last Vital Signs Temp 97.5 F L 02/16/17 15:16 Pulse 58 L 02/16/17 15:30 Resp 20 02/16/17 15:16 BP 176/65 H 02/16/17 15:16 Pulse Ox 100 02/16/17 15:16 - Medical History PMH: Anemia, Anxiety, Arthritis, Asthma, Back Problems (HX CHRONIC BACK PAIN), CAD, COPD, Diabetes, Fractures (left wrist AND RT. HIP), Gastritis, HTN, Hypercholesterolemia, Osteoporosis, Rheumatoid Arthritis Denies: HIV, Chronic Kidney Disease, Seizures, Sexually Transmitted Disease Surgical History: Coronary Stent (cad cath 02/2016 with stent) - [facility] Procedures APPLICATION OF SPLINT (06/18/14) EXCISION OF ASCENDING COLON, ENDO, DIAGN (12/05/16) EXCISION OF STOMACH, ENDO, DIAGN (12/05/16) FLUOROSCOPY OF LEFT HEART USING LOW OSMOLAR CONTRAST (02/05/16) GAIT TRAINING/AMBULAT TREATMENT USING ASSIST EQUIPMENT (11/08/15) INTRODUCE ANTI-INFLAM IN PERIPH NRV, PLEXI, PERC (11/08/15) INTRODUCE REGIONAL ANESTH IN PERIPH NRV, PLEXI, PERC (11/08/15) MEASURE OF CARDIAC SAMPL & PRESSURE, L HEART, PERC APPROACH (02/05/16) NEBULIZER THERAPY (11/11/14) REPAIR LEFT UPPER ARM TENDON, OPEN APPROACH (11/08/15) REPAIR OF HAMMER TOE (07/17/13) REPOSITION LEFT HUMERAL SHAFT WITH INT FIX, OPEN APPROACH (11/08/15) TRANSFUSE NONAUT RED BLOOD CELLS IN PERIPH VEIN, PERC (12/05/16) Family History: States: Unknown Family Hx - Social History Hx Tobacco Use: No Hx Alcohol Use: No Hx Substance Use: No - Immunization History Hx Tetanus Toxoid Vaccination: Yes (3 mos. ago) Hx Influenza Vaccination: No ("Not sure'') Hx Pneumococcal Vaccination: No (''Not sure'') Review Of Systems Except As Marked, All Systems Reviewed And Found Negative. Constitutional: Positive for: Weakness, Other (body aches). Negative for: Fever , Chills Cardiovascular: Positive for: Chest Pain. Negative for: Palpitations, Edema, Light Headedness Respiratory: Negative for: Cough, Shortness of Breath, Sputum Gastrointestinal: Positive for: Constipation. Negative for: Nausea, Vomiting, Abdominal Pain, Diarrhea Genitourinary: Negative for: Dysuria, Frequency, Hematuria Musculoskeletal: Negative for: Back Pain Neurological: Negative for: Weakness, Numbness, Headache, Dizziness Physical Exam - Physical Exam Appears: Non-toxic, No Acute Distress Skin: Normal Color, Warm, Dry Head: Atraumatic, Normacephalic Eye(s): bilateral: Normal Inspection Neck: Normal ROM, Supple Chest: Symmetrical Cardiovascular: Rhythm Regular, No Murmur Respiratory: Normal Breath Sounds, No Accessory Muscle Use, No Rales, No Rhonchi , No Wheezing Gastrointestinal/Abdominal: Soft, No Tenderness, No Guarding, No Rebound Extremity: Bilateral: Atraumatic, Normal ROM Neurological/Psych: Oriented x3, Normal Speech, Normal Cognition ED Course And Treatment - Laboratory Results Result Diagrams: 02/16/17 08:34 02/16/17 08:34 ECG: Interpreted By Me, Viewed By Me ECG Rhythm: Sinus Rhythm, L BBB ECG Interpretation: No Acute Changes Rate From EC (bpm) O2 Sat by Pulse Oximetry: 99 (on RA) Pulse Ox Interpretation: Normal Progress Note: EKG, blood work, urinalysis, CXR ordered and reviewed. Patient was given IV fluids, and Toradol. Disposition - Disposition Disposition: HOSPITALIZED Disposition Time: 22:09 Condition: STABLE - Clinical Impression Clinical Impression: Chest pain - Scribe Statement The provider has reviewed the documentation as recorded by the Scribe Nichole Jean All medical record entries made by the Shashiibe were at my direction and personally dictated by me. I have reviewed the chart and agree that the record accurately reflects my personal performance of the history, physical exam, medical decision making, and the department course for this patient. I have also personally directed, reviewed, and agree with the discharge instructions and disposition.
[2017-02-15] MEDS ORDERED: Sodium Chloride 0.9% 1,000 ML IV ONE (21:02)
[2017-02-15 21:18] LABS: BASO % 0.8 % (0.0-2.0); EOS # 0.3 K/uL (0.0-0.7); EOS % 4.1 % (0.0-4.0); HEMOGLOBIN 9.4 g/dL (11.0-16.0); LYMPH # 1.9 K/uL (1.0-4.3); MEAN CELL VOLUME 87.9 fL (81.0-99.0); MEAN CORPUSCULAR HEMOGLOBIN 28.1 pg (27.0-31.0); MEAN CORPUSCULAR HGB CONC 31.9 g/dL (33.0-37.0); MEAN PLATELET VOLUME 9.4 fL (7.2-11.7); MONO # 0.7 K/uL (0.0-0.8); MONO % 11.3 % (0.0-10.0); NEUT # 3.5 K/uL (1.8-7.0); NEUT % 54.8 % (50.0-75.0); RBC 3.34 Mil/uL (3.80-5.20); RED CELL DISTRIBUTION WIDTH 13.8 % (11.5-14.5); WHITE BLOOD COUNT 6.4 K/uL (4.8-10.8)
[2017-02-15] MEDS ORDERED: Sodium Chloride 0.9% 1,000 ML ONE ×2 (21:21→22:56)
[2017-02-15 21:26] LABS: ALBUMIN 3.5 g/dL (3.5-5.0)
[2017-02-15 21:29] LABS: ALB/GLOB RATIO 1.2 (1.0-2.1); AST/SGOT 20 U/L (14-36); BLOOD UREA NITROGEN 30 mg/dL (7-17); GFR AFRICAN-AMERICAN 52; GFR NON-AFRICAN AMERICAN 43
[2017-02-15 21:30] LABS: ALT/SGPT 21 U/L (9-52); CALCIUM 8.5 mg/dl (8.6-10.4); LIPASE 16 U/L (23-300)
[2017-02-15] MEDS ORDERED: Acetaminophen-Codeine 300/30 mg Tab PO STA (21:53)
[2017-02-15 21:57] LABS: VENOUS BLOOD GAS BASE EXCESS 0.3 mmol/L (0.0-2.0); VENOUS BLOOD GAS PCO2 45 mmHg (40-60); VENOUS BLOOD GAS PO2 50 mm/Hg (30-55); VENOUS BLOOD PH 7.37 (7.32-7.43)
--- NOTE | 2017-02-15 22:18 | CP.PCM.HP ---
<Sydni Fierro - Last Filed: 02/16/17 00:45> History of Present Illness - History of Present Illness History of Present Illness: Medicine Note CC: Chest pain HPI: 86F with PMHx CAD, HTN, DM, gastritis, asthma, COPD presents to the ED with chest pain. Patient reports she ran out of her tylenol #3 pills and now she feels generalized body ache, weakness, and pain. She reports her chest, knees, and feet hurt. She admits to constipation and a decrease in appetite but this is not abnormal for her. She denied any fever, chills, headache, SOB, current chest pain, abdominal pain, n/v/d/, or urinary symptoms. PMHx: abdominal hernia, gastritis, anxiety, asthma, COPD, DM, CAD, HTN PSHx: hysterectomy and oopherectomy, cataract surgery, Cardiac cath 02/2016 with 2x stents Medications: Crestor 5mg po HS, Pepcid 20mg po daily, ASA 81mg po daily, Plavix 75mg po daily, Losartan 25mg PO qd, Furosemide 40mg PO qd, Meclizine 12.5mg PO BID, Esomeprazole 40mg PO qd. All: NKDA FHx: mother- asthma, heart disease, at age 92 SHx: smoked 1ppd x 50 yrs, quit 20 yrs ago; social drinker in the past, denies current use. denies illicit drug use. Lives alone. Has homemaker. PMD: Dr. Gomez Present on Admission - Present on Admission Any Indicators Present on Admission: No Review of Systems - Constitutional Constitutional: Fatigue. absent: Anorexia, Headache - EENT Eyes: absent: Change in Vision Ears: absent: Tinnitus Nose/Mouth/Throat: absent: Sore Throat - Breasts Breasts: absent: Pain - Cardiovascular Cardiovascular: absent: Chest Pain, Chest Pain at Rest, Diaphoresis, Dyspnea, Edema, Palpitations, Syncope - Respiratory Respiratory: absent: Cough, Dyspnea - Gastrointestinal Gastrointestinal: Constipation. absent: Abdominal Pain, Bloating - Genitourinary Genitourinary: absent: Dysuria, Hematuria - Musculoskeletal Musculoskeletal: absent: Back Pain - Integumentary Integumentary: absent: Skin Pain, Wounds - Neurological Neurological: absent: Weakness - Psychiatric Psychiatric: absent: Anxiety - Hematologic/Lymphatic Hematologic: absent: Easy Bleeding, Easy Bruising Past Patient History - Infectious Disease Hx of Infectious Diseases: None - Tetanus Immunizations Tetanus Immunization: Unknown - Past Medical History & Family History Past Medical History?: Yes - Past Social History Smoking Status: Former Smoker - CARDIAC Hx Hypercholesterolemia: Yes Hx Hypertension: Yes - PULMONARY Hx Asthma: Yes Hx Chronic Obstructive Pulmonary Disease (COPD): Yes - NEUROLOGICAL Hx Seizures: No - HEENT Hx HEENT Problems: Yes Hx Cataracts: Yes (right eye) Hx Glaucoma: Yes (left eye) Other/Comment: ELEM LEFT EAR - RENAL Hx Chronic Kidney Disease: No - HEMATOLOGICAL/ONCOLOGICAL Hx Anemia: Yes Hx Human Immunodeficiency Virus (HIV): No - INTEGUMENTARY Hx Dermatological Problems: No - MUSCULOSKELETAL/RHEUMATOLOGICAL Hx Arthritis: Yes Hx Fractures: Yes (left wrist AND RT. HIP) Hx Osteoporosis: Yes Hx Rheumatoid Arthritis: Yes - GASTROINTESTINAL Hx Gastritis: Yes - GENITOURINARY/GYNECOLOGICAL Hx Sexually Transmitted Disorders: No - PSYCHIATRIC Hx Anxiety: Yes Hx Substance Use: No - SURGICAL HISTORY Hx Coronary Stent: Yes (cad cath 02/2016 with stent) - ANESTHESIA Hx Anesthesia: Yes Hx Anesthesia Reactions: No Hx Malignant Hyperthermia: No Meds Allergies/Adverse Reactions: Allergies Allergy/AdvReac Type Severity Reaction Status Date / Time No Known Allergies Allergy Verified 02/15/17 19:47 Physical Exam - Constitutional Appears: No Acute Distress - Head Exam Head Exam: NORMAL INSPECTION, NORMOCEPHALIC - Eye Exam Eye Exam: EOMI, Normal appearance, PERRL Pupil Exam: NORMAL ACCOMODATION - ENT Exam ENT Exam: Mucous Membranes Dry - Respiratory Exam Respiratory Exam: Clear to Auscultation Bilateral, NORMAL BREATHING PATTERN. absent: Wheezes - Cardiovascular Exam Cardiovascular Exam: REGULAR RHYTHM, RRR - GI/Abdominal Exam GI & Abdominal Exam: Normal Bowel Sounds, Soft. absent: Distended - Extremities Exam Extremities exam: Positive for: normal inspection, pedal edema, pedal pulses present. Negative for: tenderness - Back Exam Back exam: NORMAL INSPECTION - Neurological Exam Neurological exam: Alert, CN II-XII Intact, Oriented x3 - Skin Skin Exam: Dry, Intact, Normal Color, Warm Results - Vital Signs Recent Vital Signs: Last Vital Signs Temp 98.4 F 02/15/17 22:05 Pulse 59 L 02/15/17 22:05 Resp 18 02/15/17 22:05 BP 156/40 H 02/15/17 22:05 Pulse Ox 99 02/15/17 22:05 - Labs Result Diagrams: 02/15/17 21:15 02/15/17 21:15 Labs: Laboratory Results - last 24 hr 02/15/17 02/15/17 02/15/17 21:15 21:15 21:52 WBC 6.4 RBC 3.34 L Hgb 9.4 L Hct 29.4 L MCV 87.9 MCH 28.1 MCHC 31.9 L RDW 13.8 Plt Count 157 MPV 9.4 Neut % (Auto) 54.8 Lymph % (Auto) 29.0 Canyon % (Auto) 11.3 H Eos % (Auto) 4.1 H Baso % (Auto) 0.8 Neut # 3.5 Lymph # 1.9 Canyon # 0.7 Eos # 0.3 Baso # 0.0 pO2 50 VBG pH 7.37 VBG pCO2 45 VBG HCO3 24.8 VBG Total CO2 27.4 VBG O2 Sat (Calc) 90.6 H VBG Base Excess 0.3 VBG Potassium 4.7 Glucose 158 H Lactate 0.5 L Sodium 137 142.0 Potassium 4.6 Chloride 103 112.0 H Carbon Dioxide 23 Anion Gap 16 BUN 30 H Creatinine 1.2 Est GFR ( Amer) 52 Est GFR (Non-Af Amer) 43 Random Glucose 161 H Calcium 8.5 L Total Bilirubin 0.4 AST 20 ALT 21 Alkaline Phosphatase 58 Troponin I < 0.0120 Total Protein 6.4 Albumin 3.5 Globulin 2.9 Albumin/Globulin Ratio 1.2 Lipase 16 L Venous Blood Potassium 4.7 Assessment & Plan - Assessment and Plan (Free Text) Assessment: 86F with PMHx CAD, HTN, DM, gastritis, asthma, COPD presents to the ED with chest pain. Plan: Chest Pain r/o ACS * EKG: * 1st YADIRA: negative * Echo (01/25/17): official report available in the computer * Lexiscan: normal * cardiac risk: cad, dm, htn, smoker * F/U YADIRA x 2, EKG x2 History of Multiple Falls and Fractures * Tylenol 3 1 tab PO Q4H PRN History of Asthma * Duonebs PRN History of Cornary Artery Disease * ASA 81mg po daily * Plavix 75mg po daily * Crestor 5mg po hs History of Hypertension * ASA 81mg po daily * Losartan 25mg PO qdaily History of Gastritis * Protonix 40mg PO daily History of Diabetes Type2 * Accuchecks QAC and HS * RISS low * HgbA1c 7.1 History of Constipation * Colalce TID * Miralax Prophylactic Measures * GI PPX: Protonix 40mg PO daily * DVT PPX: SCDs, Heparin 5000U SC Q12 DW Sri Ozuna DO, PGY-1 <Damon Kearney P - Last Filed: 02/17/17 05:59> Results - Vital Signs Recent Vital Signs: Last Vital Signs Temp 97.5 F L 02/16/17 15:16 Pulse 58 L 02/16/17 15:30 Resp 20 02/16/17 15:16 BP 176/65 H 02/16/17 15:16 Pulse Ox 100 02/16/17 15:16 - Labs Result Diagrams: 02/16/17 08:34 02/16/17 08:34 Labs: Laboratory Results - last 24 hr 02/16/17 02/16/17 02/16/17 06:15 08:34 08:34 WBC 5.3 RBC 3.33 L Hgb 9.5 L Hct 29.3 L MCV 88.0 MCH 28.4 MCHC 32.3 L RDW 13.9 Plt Count 156 MPV 9.6 Neut % (Auto) 33.2 L Lymph % (Auto) 46.5 H Canyon % (Auto) 11.3 H Eos % (Auto) 7.9 H Baso % (Auto) 1.1 Neut # 1.8 Lymph # 2.5 Canyon # 0.6 Eos # 0.4 Baso # 0.1 Sodium 138 Potassium 4.5 Chloride 105 Carbon Dioxide 24 Anion Gap 14 BUN 28 H Creatinine 1.1 Est GFR ( Amer) 57 Est GFR (Non-Af Amer) 47 POC Glucose (mg/dL) 164 H Random Glucose 143 H Calcium 8.1 L Total Bilirubin 0.4 AST 38 H D ALT 22 Alkaline Phosphatase 48 Troponin I < 0.0120 Total Protein 5.7 L Albumin 3.0 L Globulin 2.7 Albumin/Globulin Ratio 1.1 Influenza Typ A,B (EIA) 02/16/17 02/16/17 02/16/17 11:41 14:25 14:27 WBC RBC Hgb Hct MCV MCH MCHC RDW Plt Count MPV Neut % (Auto) Lymph % (Auto) Canyon % (Auto) Eos % (Auto) Baso % (Auto) Neut # Lymph # Canyon # Eos # Baso # Sodium Potassium Chloride Carbon Dioxide Anion Gap BUN Creatinine Est GFR ( Amer) Est GFR (Non-Af Amer) POC Glucose (mg/dL) 251 H Random Glucose Calcium Total Bilirubin AST ALT Alkaline Phosphatase Troponin I < 0.0120 Total Protein Albumin Globulin Albumin/Globulin Ratio Influenza Typ A,B (EIA) Negative for flu a/b Attending/Attestation - Attestation I have personally seen and examined this patient.: Yes I have fully participated in the care of the patient.: Yes I have reviewed all pertinent clinical information: Yes Notes (Text): 02/17/17 05:56 Atypical chest pain with whole body bady aches, some what opiod dependence as patient taking tylenol #3 on regular basis and came to hospital with cp and body aches when ran out of meds. H/o CAD, chronic venous insufficiency, chronic constipation, lung scaring from prior pna, normal ef. Plan to observe in tele, informed about opiods, dependence, side effects, serial enzymes, hold on lasix on regular basis may use on prn basis for venous insufficiency but runs risk of renal insufficiency.
[2017-02-15] MEDS ORDERED: Acetaminophen-Codeine 300/30 mg Tab PO ONE (22:22)
[2017-02-15] MEDS ORDERED: Sodium Chloride 0.9% 1,000 ML IV SCH (22:45)
[2017-02-16] MEDS ORDERED: Acetaminophen-Codeine 300/30 mg Tab PO PRN (00:17)
[2017-02-16 08:06] VITALS: TEMP 97.5
[2017-02-16 08:47] LABS: BASO # 0.1 K/uL (0.0-0.2); BASO % 1.1 % (0.0-2.0); EOS # 0.4 K/uL (0.0-0.7); EOS % 7.9 % (0.0-4.0); HEMOGLOBIN 9.5 g/dL (11.0-16.0); LYMPH # 2.5 K/uL (1.0-4.3); LYMPH % 46.5 % (20.0-40.0); MEAN CORPUSCULAR HEMOGLOBIN 28.4 pg (27.0-31.0); MEAN CORPUSCULAR HGB CONC 32.3 g/dL (33.0-37.0); MEAN PLATELET VOLUME 9.6 fL (7.2-11.7); MONO # 0.6 K/uL (0.0-0.8); MONO % 11.3 % (0.0-10.0); NEUT # 1.8 K/uL (1.8-7.0); NEUT % 33.2 % (50.0-75.0); NRBC % 0.1 % (0.0-2.0); RBC 3.33 Mil/uL (3.80-5.20); RED CELL DISTRIBUTION WIDTH 13.9 % (11.5-14.5); WHITE BLOOD COUNT 5.3 K/uL (4.8-10.8)
[2017-02-16 09:08] LABS: ALB/GLOB RATIO 1.1 (1.0-2.1); ALT/SGPT 22 U/L (9-52); AST/SGOT 38 U/L (14-36); BLOOD UREA NITROGEN 28 mg/dL (7-17); GFR AFRICAN-AMERICAN 57; GFR NON-AFRICAN AMERICAN 47
[2017-02-16 09:09] LABS: CALCIUM 8.1 mg/dl (8.6-10.4)
--- NOTE | 2017-02-16 09:19 | RAD ---
HISTORY: Chest pain. COMPARISON: 01/22/2017. TECHNIQUE: Chest PA and lateral FINDINGS: LUNGS: Apical pleural thickening/ scar perhaps thickening of azygos fissure. PLEURA: No significant pleural effusion identified. No pneumothorax apparent. CARDIOVASCULAR: No radiographic findings to suggest acute or significant cardiovascular disease. OSSEOUS STRUCTURES: No significant abnormalities. VISUALIZED UPPER ABDOMEN: Normal. OTHER FINDINGS: None. IMPRESSION: No active disease. No significant interval change compared to the prior examination(s).
[2017-02-16] MEDS ORDERED: Enoxaparin 40 mg Syringe SC SCH (10:00)
[2017-02-16] MEDS ORDERED: POLYETHYLENE GLYCOL 3350 17 GM/Dose PACKET PO SCH (10:00)
[2017-02-16] MEDS ORDERED: Pantoprazole 40 mg EC Tab PO SCH (10:00)
--- NOTE | 2017-02-16 11:02 | CP.PCM.PN ---
Subjective - Date & Time of Evaluation Date of Evaluation: 02/16/17 Time of Evaluation: 08:00 - Subjective Subjective: PGY1- Medicine Note, Dr. Jean's Service Patient seen and visited at bedside with complaints of pain and numbness in her upper and lower extremities, constipation, poor vision and hearing. Patient complains of extremity numbness and pain 5/10 on her toes, soles of feet, and fingers that radiate up to her knees and shoulders. Patients symptoms started a while ago, was not sure exactly when it began, and is able to ambulate. Patient complains of right hand pain 1/10 at needle site, and right thumb pain and edema. Complains of poor vision. 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 Patient states that she has cataracts in her right eye and is able to see with this eye. Patient complains of poor hearing that started 1 month ago. Complains of long standing constipation, last bowel movement was yesterday. Admits to straining on defecation and stools are brown, small, and hard. Patient is able to urinate and admits to wearing pampers for incontinence during asthma exacerbations. Admits to poor appetite. Denies chest pain, shortness of breath, headaches, dizziness, sweating, fever, chills, cough, nausea, vomiting, diarrhea, dysuria. Denies any other complaints. Objective - Vital Signs/Intake and Output Vital Signs (last 24 hours): Temp Pulse Resp BP Pulse Ox 97.5 F L 51 L 18 156/68 H 95 02/16/17 07:00 02/16/17 07:00 02/16/17 07:00 02/16/17 07:00 02/16/17 07:00 Intake and Output: 02/16/17 02/16/17 06:59 18:59 Intake Total 300 Balance 300 - Medications Medications: Current Medications Acetaminophen/Codeine Phosphate (Tylenol/Codeine 300 Mg/30 Mg) 1 ea PO Q4 PRN PRN Reason: Pain, moderate (4-7) Alprazolam (Xanax) 1 mg PO HS IHSAN Aspirin (Ecotrin) 81 mg PO DAILY ON LICENSE OF [facility] Last Admin: 02/16/17 10:02 Dose: 81 mg Clopidogrel Bisulfate (Plavix) 75 mg PO DAILY ON LICENSE OF [facility] Last Admin: 02/16/17 10:02 Dose: 75 mg Docusate Sodium (Colace) 100 mg PO TID ON LICENSE OF [facility] Last Admin: 02/16/17 10:01 Dose: 100 mg Enoxaparin Sodium (Lovenox) 40 mg SC DAILY ON LICENSE OF [facility] Last Admin: 02/16/17 10:02 Dose: 40 mg Losartan Potassium (Cozaar) 25 mg PO DAILY ON LICENSE OF [facility] Last Admin: 02/16/17 10:02 Dose: 25 mg Meclizine HCl (Antivert) 12.5 mg PO DAILY ON LICENSE OF [facility] Last Admin: 02/16/17 10:02 Dose: 12.5 mg Ondansetron HCl (Zofran Inj) 4 mg IVP Q6 PRN PRN Reason: Nausea/Vomiting Pantoprazole Sodium (Protonix Ec Tab) 40 mg PO DAILY ON LICENSE OF [facility] Last Admin: 02/16/17 10:02 Dose: 40 mg Polyethylene Glycol (Miralax) 17 gm PO DAILY ON LICENSE OF [facility] Last Admin: 02/16/17 10:02 Dose: 17 gm Rosuvastatin Calcium (Crestor) 5 mg PO HS ON LICENSE OF [facility] - Labs Labs: 02/16/17 08:34 02/16/17 08:34 - Constitutional Appears: Well, Non-toxic, No Acute Distress - Head Exam Head Exam: ATRAUMATIC, NORMAL INSPECTION - Eye Exam Eye Exam: EOMI, Normal appearance, PERRL - ENT Exam ENT Exam: Mucous Membranes Moist, Normal Exam Additional comments: decreased hearing in right ear - Neck Exam Neck Exam: Full ROM, Normal Inspection. absent: Lymphadenopathy - Respiratory Exam Respiratory Exam: Clear to Ausculation Bilateral, NORMAL BREATHING PATTERN. absent: Rales, Rhonchi, Wheezes, Respiratory Distress, Stridor - Cardiovascular Exam Cardiovascular Exam: REGULAR RHYTHM, RRR, Murmur. absent: Gallop, Rubs - GI/Abdominal Exam GI & Abdominal Exam: Soft, Normal Bowel Sounds. absent: Distended, Firm, Guarding, Rigid - Extremities Exam Extremities Exam: Full ROM, Normal Inspection. absent: Pedal Edema - Back Exam Back Exam: NORMAL INSPECTION. absent: rash noted - Neurological Exam Neurological Exam: Alert, Awake, CN II-XII Intact, Oriented x3 - Psychiatric Exam Psychiatric exam: Normal Affect, Normal Mood - Skin Skin Exam: Intact, Normal Color, Warm Assessment and Plan - Assessment and Plan (Free Text) Assessment: Chest Pain r/o ACS * EKG: Left bundle branch block, unchanged from ekg on 01/23/17 * 1st and 2nd YADIRA negative * Echo (01/25/17): official report available in the computer * Lexiscan (01/24/17): normal * cardiac risk: cad, dm, htn, smoker Chronic Pain secondary to hx of multiple falls and fractures * Tylenol 3 1 tab PO Q4H PRN History of Asthma * Duonebs PRN History of Cornary Artery Disease * ASA 81mg po daily * Plavix 75mg po daily * Crestor 5mg po hs History of Hypertension * ASA 81mg po daily * Losartan 25mg PO qdaily History of Gastritis * Protonix 40mg PO daily History of Diabetes Type2 * Accuchecks QAC and HS * RISS low * HgbA1c 7.1 History of Constipation * Colalce TID * Miralax Prophylactic Measures * GI PPX: Protonix 40mg PO daily * DVT PPX: SCDs, Heparin 5000U SC Q12
--- NOTE | 2017-02-16 11:02 | CARD ---
APPROVED REPORT EKG Measurement Heart [id number] <Conclusion> Poor data quality, interpretation may be adversely affected Normal sinus rhythm Left bundle branch block Abnormal ECG
--- NOTE | 2017-02-16 15:29 | CP.PCM.DIS ---
<Sheree Mitchell - Last Filed: 02/16/17 15:25> Provider - Provider Date of Admission: 02/15/17 22:09 Attending physician: Damon Kearney MD Consults: Dr. Gomez Time Spent in preparation of Discharge (in minutes): 45 Diagnosis - Discharge Diagnosis (1) Chest pain Status: Acute Comment: please see summary for details Hospital Course - Lab Results Lab Results: Most Recent Lab Values WBC 5.3 K/uL (4.8-10.8) 02/16/17 08:34 RBC 3.33 Mil/uL (3.80-5.20) L 02/16/17 08:34 Hgb 9.5 g/dL (11.0-16.0) L 02/16/17 08:34 Hct 29.3 % (34.0-47.0) L 02/16/17 08:34 MCV 88.0 fL (81.0-99.0) 02/16/17 08:34 MCH 28.4 pg (27.0-31.0) 02/16/17 08:34 MCHC 32.3 g/dL (33.0-37.0) L 02/16/17 08:34 RDW 13.9 % (11.5-14.5) 02/16/17 08:34 Plt Count 156 K/uL (130-400) 02/16/17 08:34 MPV 9.6 fL (7.2-11.7) 02/16/17 08:34 Neut % (Auto) 33.2 % (50.0-75.0) L 02/16/17 08:34 Lymph % (Auto) 46.5 % (20.0-40.0) H 02/16/17 08:34 [place] % (Auto) 11.3 % (0.0-10.0) H 02/16/17 08:34 Eos % (Auto) 7.9 % (0.0-4.0) H 02/16/17 08:34 Baso % (Auto) 1.1 % (0.0-2.0) 02/16/17 08:34 Neut # 1.8 K/uL (1.8-7.0) 02/16/17 08:34 Lymph # 2.5 K/uL (1.0-4.3) 02/16/17 08:34 [place] # 0.6 K/uL (0.0-0.8) 02/16/17 08:34 Eos # 0.4 K/uL (0.0-0.7) 02/16/17 08:34 Baso # 0.1 K/uL (0.0-0.2) 02/16/17 08:34 D-Dimer, Quantitative 201 ng/mlDDU (0-243) 02/15/17 23:25 pO2 50 mm/Hg (30-55) 02/15/17 21:52 VBG pH 7.37 (7.32-7.43) 02/15/17 21:52 VBG pCO2 45 mmHg (40-60) 02/15/17 21:52 VBG HCO3 24.8 mmol/L 02/15/17 21:52 VBG Total CO2 27.4 mmol/L (22-28) 02/15/17 21:52 VBG O2 Sat (Calc) 90.6 % (40-65) H 02/15/17 21:52 VBG Base Excess 0.3 mmol/L (0.0-2.0) 02/15/17 21:52 VBG Potassium 4.7 mmol/L (3.6-5.2) 02/15/17 21:52 Sodium 142.0 mmol/l (132-148) 02/15/17 21:52 Chloride 112.0 mmol/L (98-107) H 02/15/17 21:52 Glucose 158 mg/dl (65-105) H 02/15/17 21:52 Lactate 0.5 mmol/L (0.7-2.1) L 02/15/17 21:52 Sodium 138 mmol/L (132-148) 02/16/17 08:34 Potassium 4.5 mmol/L (3.6-5.2) 02/16/17 08:34 Chloride 105 mmol/L (98-107) 02/16/17 08:34 Carbon Dioxide 24 mmol/L (22-30) 02/16/17 08:34 Anion Gap 14 (10-20) 02/16/17 08:34 BUN 28 mg/dL (7-17) H 02/16/17 08:34 Creatinine 1.1 MG/DL (0.7-1.2) 02/16/17 08:34 Est GFR ( Amer) 57 02/16/17 08:34 Est GFR (Non-Af Amer) 47 02/16/17 08:34 POC Glucose (mg/dL) 251 mg/dL (65-110) H 02/16/17 11:41 Random Glucose 143 mg/dL (65-105) H 02/16/17 08:34 Calcium 8.1 mg/dl (8.6-10.4) L 02/16/17 08:34 Total Bilirubin 0.4 mg/dL (0.2-1.3) 02/16/17 08:34 AST 38 U/L (14-36) H D 02/16/17 08:34 ALT 22 U/L (9-52) 02/16/17 08:34 Alkaline Phosphatase 48 U/L (38-126) 02/16/17 08:34 Troponin I < 0.0120 ng/mL (0.00-0.120) 02/16/17 14:27 Total Protein 5.7 g/dL (6.3-8.3) L 02/16/17 08:34 Albumin 3.0 g/dL (3.5-5.0) L 02/16/17 08:34 Globulin 2.7 gm/dL (2.2-3.9) 02/16/17 08:34 Albumin/Globulin Ratio 1.1 (1.0-2.1) 02/16/17 08:34 Lipase 16 U/L (23-300) L 02/15/17 21:15 Venous Blood Potassium 4.7 mmol/L (3.6-5.2) 02/15/17 21:52 Influenza Typ A,B (EIA) Negative for flu a/b (NEGATIVE) 02/16/17 14:25 - Hospital Course Hospital Course: " CC: Chest pain 86F with PMHx CAD, HTN, DM, gastritis, asthma, COPD presents to the ED with chest pain. Patient reports she ran out of her tylenol #3 pills and now she feels generalized body ache, weakness, and pain. She reports her chest, knees, and feet hurt. She admits to constipation and a decrease in appetite but this is not abnormal for her. She denied any fever, chills, headache, SOB, current chest pain, abdominal pain, nausea, vomiting, diarrhea, or urinary symptoms. " Patient admitted on 02/15/17 for chest pain. ECGs and Troponins were ordered to rule out acute myocardial infarction. ECG [] found normal sinus rhythm and left bundle branch block. ECG [02/16] twice found sinus bradycardia and left bundle branch block. Left bundle branch block was found to be unchanged from 01/23/17. Troponin levels were within normal ranges three times [02/15-02/16]. CXR was ordered with two views PA/LAT [02/15] which found no active disease and no significant interval changes compared to prior examinations. Echo [01/25] and lexiscan [01/24] were both normal. During stay patient was treated for her chronic conditions including chronic pain, asthma, CAD, HTN, gastritis, type 2 Diabetes. Constipation treatment and prophylactic measures were also ensured. Medications administered include Tylenol/codeine, xanax, aspirin, plavix, colace, lovenox, cozaar, meclizine, zofran, protonix, miralax, crestor. Patient to continue home medications. Patient will not be given a script for Tylenol/ codeine for her aches and pains. Patient admits that her pain is relieved with Tylenol. This is a summary of the patient's hospital course. Please see chart for full details. Discharge Exam - Head Exam Head Exam: NORMAL INSPECTION, NORMOCEPHALIC - Eye Exam Eye Exam: EOMI, Normal appearance, PERRL - ENT Exam ENT Exam: Mucous Membranes Moist - Neck Exam Neck exam: Full Rom - Respiratory Exam Respiratory Exam: Clear to PA & Lateral, NORMAL BREATHING PATTERN. absent: Rales, Rhonchi, Wheezes, Respiratory Distress, Stridor - Cardiovascular Exam Cardiovascular Exam: REGULAR RHYTHM, RRR. absent: Gallop, Rubs, Systolic Murmur - GI/Abdominal Exam GI & Abdominal Exam: Normal Bowel Sounds, Unremarkable. absent: Diminished Bowel Sounds, Distended, Firm, Guarding - Extremities Exam Extremities exam: full ROM, normal inspection - Back Exam Back exam: NORMAL INSPECTION - Neurological Exam Neurological exam: Alert, Oriented x3 - Psychiatric Exam Psychiatric exam: Normal Affect, Normal Mood - Skin Skin Exam: Intact, Normal Color, Warm Discharge Plan - Discharge Medications Prescriptions: ALPRAZolam [Xanax] 1 mg PO HS #15 tab - Follow Up Plan Condition: GOOD Disposition: HOME/ ROUTINE Instructions: Alprazolam (By mouth), Chest Pain (DC), Heart Healthy Diet (DC) Additional Instructions: Patient stable for discharge as per Dr. Chikis Jean. Patient to continue all home medications which are delivered to patient's home. Patient not prescribed Tylenol/ Codeine 300 mg for body aches and pains and patient admits that Tylenol without codeine helps her pain. Patient to follow up with Dr. Gomez within one week of discharge. If symptoms worsen or return, please return to Emergency Room Immediately. Instructions explained to patient who understood and agreed. Referrals: Chuck Gomez MD [Staff Provider] - <Atilio Jean - Last Filed: 02/16/17 20:12> Provider - Provider Date of Admission: 02/15/17 22:09 Attending physician: Damon Kearney MD Hospital Course - Lab Results Lab Results: Most Recent Lab Values WBC 5.3 K/uL (4.8-10.8) 02/16/17 08:34 RBC 3.33 Mil/uL (3.80-5.20) L 02/16/17 08:34 Hgb 9.5 g/dL (11.0-16.0) L 02/16/17 08:34 Hct 29.3 % (34.0-47.0) L 02/16/17 08:34 MCV 88.0 fL (81.0-99.0) 02/16/17 08:34 MCH 28.4 pg (27.0-31.0) 02/16/17 08:34 MCHC 32.3 g/dL (33.0-37.0) L 02/16/17 08:34 RDW 13.9 % (11.5-14.5) 02/16/17 08:34 Plt Count 156 K/uL (130-400) 02/16/17 08:34 MPV 9.6 fL (7.2-11.7) 02/16/17 08:34 Neut % (Auto) 33.2 % (50.0-75.0) L 02/16/17 08:34 Lymph % (Auto) 46.5 % (20.0-40.0) H 02/16/17 08:34 [place] % (Auto) 11.3 % (0.0-10.0) H 02/16/17 08:34 Eos % (Auto) 7.9 % (0.0-4.0) H 02/16/17 08:34 Baso % (Auto) 1.1 % (0.0-2.0) 02/16/17 08:34 Neut # 1.8 K/uL (1.8-7.0) 02/16/17 08:34 Lymph # 2.5 K/uL (1.0-4.3) 02/16/17 08:34 [place] # 0.6 K/uL (0.0-0.8) 02/16/17 08:34 Eos # 0.4 K/uL (0.0-0.7) 02/16/17 08:34 Baso # 0.1 K/uL (0.0-0.2) 02/16/17 08:34 D-Dimer, Quantitative 201 ng/mlDDU (0-243) 02/15/17 23:25 pO2 50 mm/Hg (30-55) 02/15/17 21:52 VBG pH 7.37 (7.32-7.43) 02/15/17 21:52 VBG pCO2 45 mmHg (40-60) 02/15/17 21:52 VBG HCO3 24.8 mmol/L 02/15/17 21:52 VBG Total CO2 27.4 mmol/L (22-28) 02/15/17 21:52 VBG O2 Sat (Calc) 90.6 % (40-65) H 02/15/17 21:52 VBG Base Excess 0.3 mmol/L (0.0-2.0) 02/15/17 21:52 VBG Potassium 4.7 mmol/L (3.6-5.2) 02/15/17 21:52 Sodium 142.0 mmol/l (132-148) 02/15/17 21:52 Chloride 112.0 mmol/L (98-107) H 02/15/17 21:52 Glucose 158 mg/dl (65-105) H 02/15/17 21:52 Lactate 0.5 mmol/L (0.7-2.1) L 02/15/17 21:52 Sodium 138 mmol/L (132-148) 02/16/17 08:34 Potassium 4.5 mmol/L (3.6-5.2) 02/16/17 08:34 Chloride 105 mmol/L (98-107) 02/16/17 08:34 Carbon Dioxide 24 mmol/L (22-30) 02/16/17 08:34 Anion Gap 14 (10-20) 02/16/17 08:34 BUN 28 mg/dL (7-17) H 02/16/17 08:34 Creatinine 1.1 MG/DL (0.7-1.2) 02/16/17 08:34 Est GFR ( Amer) 57 02/16/17 08:34 Est GFR (Non-Af Amer) 47 02/16/17 08:34 POC Glucose (mg/dL) 251 mg/dL (65-110) H 02/16/17 11:41 Random Glucose 143 mg/dL (65-105) H 02/16/17 08:34 Calcium 8.1 mg/dl (8.6-10.4) L 02/16/17 08:34 Total Bilirubin 0.4 mg/dL (0.2-1.3) 02/16/17 08:34 AST 38 U/L (14-36) H D 02/16/17 08:34 ALT 22 U/L (9-52) 02/16/17 08:34 Alkaline Phosphatase 48 U/L (38-126) 02/16/17 08:34 Troponin I < 0.0120 ng/mL (0.00-0.120) 02/16/17 14:27 Total Protein 5.7 g/dL (6.3-8.3) L 02/16/17 08:34 Albumin 3.0 g/dL (3.5-5.0) L 02/16/17 08:34 Globulin 2.7 gm/dL (2.2-3.9) 02/16/17 08:34 Albumin/Globulin Ratio 1.1 (1.0-2.1) 02/16/17 08:34 Lipase 16 U/L (23-300) L 02/15/17 21:15 Venous Blood Potassium 4.7 mmol/L (3.6-5.2) 02/15/17 21:52 Influenza Typ A,B (EIA) Negative for flu a/b (NEGATIVE) 02/16/17 14:25 Attending/Attestation - Attestation I have personally seen and examined this patient.: Yes I have fully participated in the care of the patient.: Yes I have reviewed all pertinent clinical information, including history, physical exam and plan: Yes Notes (Text): 02/16/17 20:06 Patient was seen and examined at 2 PM 02/16/17. Exam, Assessment and Plan, and Discharge Plan were thoroughly gone over with the Resident. Notified Cynthia Sharp [phone] who was designated on the patient face sheet as Emergency Contact that patient was being discharged to home. She asked that I call the patient Daughter to let her know after explaining to her follow up instructions. I explained to Ms. Sharp that she would have to notify the patient's daughter. Atilio Jean D.O.
[2017-02-16 16:14] VITALS: BP 176/65; RESP 20
[2017-02-17 11:57] VITALS: PULSE 58
--- NOTE | 2017-02-19 13:06 | CARD ---
APPROVED REPORT EKG Measurement Heart [id number] ID [id number] <Conclusion> Sinus bradycardia Left bundle branch block Abnormal ECG
--- NOTE | 2017-02-19 13:07 | CARD ---
APPROVED REPORT EKG Measurement Heart [id number] <Conclusion> Sinus bradycardia Left bundle branch block Abnormal ECG
[2017-02-23 23:02] VITALS: O2SAT 99
== END 2017-02-16 19:20 | disposition home or self-care (01) ==
LOC: C.ER 19:34 → C.9E 22:09 → C.6T 02-16 00:57
PROVIDERS: ADMIT Internal Medicine; ATTEND Internal Medicine
DX: R07.89 Other chest pain (principal); R53.1 Weakness; K59.00 Constipation, unspecified; J44.9 Chronic obstructive pulmonary disease, unspecified; I25.10 Atherosclerotic heart disease of native coronary artery without angina pectoris; I10 Essential (primary) hypertension; E78.00 Pure hypercholesterolemia, unspecified; E11.9 Type 2 diabetes mellitus without complications; G89.29 Other chronic pain; D64.9 Anemia, unspecified; Z95.5 Presence of coronary angioplasty implant and graft; Z87.891 Personal history of nicotine dependence; K29.70 Gastritis, unspecified, without bleeding; I44.7 Left bundle-branch block, unspecified
CPT/HCPCS: 36415; 71020; 80053; 82803; 82948; 83690; 84484; 85025; 85378; 87040; 87804; 93005; 96374; 97116; 97162; 99285; G0378; G8978; G8979; J1650; J1885; J7040

== ENCOUNTER 2017-03-11 22:00 | Observation (INO) | payer MEDICARE, MEDICAID ==
[2017-03-11 22:00] VITALS: BMI 23.6
[2017-03-11] MEDS ORDERED: Sodium Chloride 0.9% 500 ML IV ONE (22:22)
[2017-03-11 22:52] LABS: BASO # 0.1 K/uL (0.0-0.2); BASO % 0.7 % (0.0-2.0); EOS # 0.2 K/uL (0.0-0.7); EOS % 2.1 % (0.0-4.0); HEMOGLOBIN 10.8 g/dL (11.0-16.0); LYMPH # 1.8 K/uL (1.0-4.3); LYMPH % 19.6 % (20.0-40.0); MEAN CELL VOLUME 86.7 fL (81.0-99.0); MEAN CORPUSCULAR HEMOGLOBIN 28.1 pg (27.0-31.0); MEAN CORPUSCULAR HGB CONC 32.4 g/dL (33.0-37.0); MEAN PLATELET VOLUME 9.1 fL (7.2-11.7); MONO # 0.8 K/uL (0.0-0.8); MONO % 9.2 % (0.0-10.0); NEUT # 6.2 K/uL (1.8-7.0); NEUT % 68.4 % (50.0-75.0); RBC 3.84 Mil/uL (3.80-5.20); RED CELL DISTRIBUTION WIDTH 14.1 % (11.5-14.5); WHITE BLOOD COUNT 9.1 K/uL (4.8-10.8)
[2017-03-11 23:00] LABS: ALBUMIN 4.1 g/dL (3.5-5.0)
[2017-03-11 23:03] LABS: ALB/GLOB RATIO 1.2 (1.0-2.1)
[2017-03-11 23:04] LABS: CALCIUM 9.3 mg/dl (8.6-10.4)
--- NOTE | 2017-03-11 23:11 | C.PDOC ---
History Of Present Illness 86 year old female presents to the ED with complaints of cramping abdominal pain and no bowel movement for two days. Patient has had many prior ER visits for various complaints. She denies any radiating pain, nausea, or vomiting. Time Seen by Provider: 03/11/17 22:19 Chief Complaint (Nursing): Abdominal Pain History Per: Patient History/Exam Limitations: no limitations Onset/Duration Of Symptoms: Days (2 days ) Current Symptoms Are (Timing): Still Present Location Of Pain/Discomfort: Diffuse Radiation Of Pain To:: None Quality Of Discomfort: Cramping Associated Symptoms: denies: Fever, Chills, Nausea, Vomiting Last Bowel Movement: Days Ago (2 days ago) Recent travel outside of the [place]: No Additional History Per: Prior Records Abnormal Vaginal Bleeding: No Past Medical History Reviewed: Historical Data, Nursing Documentation, Vital Signs Vital Signs: Last Vital Signs Temp 99 F 03/11/17 22:00 Pulse 70 03/11/17 22:00 Resp 16 03/11/17 22:05 BP Pulse Ox 98 03/11/17 23:48 - Medical History PMH: Anemia, Anxiety, Arthritis, Asthma, Back Problems (HX CHRONIC BACK PAIN), CAD, COPD, Diabetes, Fractures (left wrist AND RT. HIP), Gastritis, HTN, Hypercholesterolemia, Osteoporosis, Rheumatoid Arthritis Surgical History: Coronary Stent (cad cath 02/2016 with stent) - [facility] Procedures APPLICATION OF SPLINT (06/18/14) EXCISION OF ASCENDING COLON, ENDO, DIAGN (12/05/16) EXCISION OF STOMACH, ENDO, DIAGN (12/05/16) FLUOROSCOPY OF LEFT HEART USING LOW OSMOLAR CONTRAST (02/05/16) GAIT TRAINING/AMBULAT TREATMENT USING ASSIST EQUIPMENT (11/08/15) INTRODUCE ANTI-INFLAM IN PERIPH NRV, PLEXI, PERC (11/08/15) INTRODUCE REGIONAL ANESTH IN PERIPH NRV, PLEXI, PERC (11/08/15) MEASURE OF CARDIAC SAMPL & PRESSURE, L HEART, PERC APPROACH (02/05/16) NEBULIZER THERAPY (06/16/14) REPAIR LEFT UPPER ARM TENDON, OPEN APPROACH (11/08/15) REPAIR OF HAMMER TOE (07/17/13) REPOSITION LEFT HUMERAL SHAFT WITH INT FIX, OPEN APPROACH (11/08/15) TRANSFUSE NONAUT RED BLOOD CELLS IN PERIPH VEIN, PERC (12/05/16) Family History: States: Unknown Family Hx - Social History Hx Tobacco Use: No Hx Alcohol Use: No Hx Substance Use: No - Immunization History Hx Tetanus Toxoid Vaccination: Yes (3 mos. ago) Hx Influenza Vaccination: No ("Not sure'') Hx Pneumococcal Vaccination: No (''Not sure'') Review Of Systems Constitutional: Negative for: Fever, Chills Cardiovascular: Negative for: Chest Pain Respiratory: Negative for: Shortness of Breath Gastrointestinal: Positive for: Abdominal Pain, Constipation. Negative for: Nausea, Vomiting, Diarrhea Physical Exam - Physical Exam Appears: Non-toxic, Other (Patient is frail elderly woman ) Skin: Warm, Dry Head: Atraumatic Eye(s): bilateral: Normal Inspection, PERRL, EOMI Oral Mucosa: Moist Neck: Supple Chest: Symmetrical, No Deformity Cardiovascular: Rhythm Regular Respiratory: Normal Breath Sounds, No Rhonchi, No Wheezing Gastrointestinal/Abdominal: Soft, No Tenderness, Distention (slightly distended) , No Guarding, No Rebound, Other (Tympanic to percussion) Extremity: Normal ROM, No Tenderness Neurological/Psych: Oriented x3 ED Course And Treatment - Laboratory Results Result Diagrams: 03/11/17 22:49 03/11/17 22:49 Lab Interpretation: Abnormal (trop neg, UA >1000 WBC's) ECG: Interpreted By Me ECG Rhythm: L BBB (60, no changes from prior) ECG Interpretation: Normal O2 Sat by Pulse Oximetry: 98 (room air ) Pulse Ox Interpretation: Normal - Radiology CXR: Interpreted by Me CXR Interpretation: Yes: No Acute Disease - Other Rad abd x 2 X-Ray: Interpreted by Me (+FOS) Progress Note: IVF, rocephin IV Reevaluation Time: 23:46 Reassessment Condition: Improved - Physician Consult Information Outcome Of Conversation: [id number]: d/w Dr. Vidal, Hospitalist covering pt's for Dr. Chuck Gomez- ok to Med/Surg obs Medical Decision Making Medical Decision Making: UTI, constipation Disposition Doctor Will See Patient In The: Hospital Counseled Patient/Family Regarding: Studies Performed, Diagnosis - Disposition Disposition: HOSPITALIZED Disposition Time: 23:47 Condition: GOOD Forms: [facility] (Somali) - Clinical Impression Clinical Impression: History of abdominal colic, UTI (urinary tract infection) - Scribe Statement The provider has reviewed the documentation as recorded by the Shashiibmargo [place] All medical record entries made by the Brionna were at my direction and personally dictated by me. I have reviewed the chart and agree that the record accurately reflects my personal performance of the history, physical exam, medical decision making, and the department course for this patient. I have also personally directed, reviewed, and agree with the discharge instructions and disposition.
[2017-03-11 23:15] LABS: TROPONIN I 0.027 ng/mL (0.00-0.120)
[2017-03-11 23:16] LABS: URINE BACTERIA MANY (<OCC); URINE BILIRUBIN NEGATIVE (NEGATIVE); URINE BLOOD 1+ (NEGATIVE); URINE CLARITY Turbid (Clear); URINE COLOR Yellow (YELLOW); URINE GLUCOSE (UA) NORMAL (Normal); URINE LEUKOCYTE ESTERASE 3+ Leu/uL (Negative); URINE NITRATE POSITIVE (NEGATIVE); URINE PROTEIN 2+ mg/dL (NEGATIVE); URINE UROBILINOGEN NORMAL mg/dL (0.2-1.0); WBC CLUMPS MOD /hpf
[2017-03-11] MEDS ORDERED: cefTRIAXone IV 1 gm in Dextros 50 ML IV ONE (23:42)
--- NOTE | 2017-03-12 00:18 | CP.PCM.HP ---
Addendum entered and electronically signed by Stephanie Blue DO 03/12/17 01 :10: Abdominal Pain -Not evident on examination -Will order lipase to rule out pancreatitis in light of patient's complaint of epigastric tenderness earlier. Original Note: <Stephanie Blue - Last Filed: 03/12/17 00:54> History of Present Illness - History of Present Illness History of Present Illness: The patient was examined at approximately 12:10AM on 03/12/17. Patient's daughter was initially present bedside. At this time, CODE STATUS could not be determined in full because patient's daughter had to leave to catch a taxicab. This will have to be revisited. CC: abdominal pain HPI: 86 year old female with PMHx significant for CAD, HTN, DM, gastritis, asthma, arthritis, COPD, anxiety and hx of abdominal hernia presents with complaints of epigastric abdominal pain of two day duration. The abdominal pain was limited to the epigastric area without radiation. Patient took nexium as well as mylanta without any relief. Patient was initially accompanied by daughter who had to leave abruptly during the evaluation. She stated that her mother had not eaten in two days nor had she had a bowel movement. Apparently, the incontinence of bowels has been a norm for the patient whenever she receives her insulin medication, per daughter. Patient was able to urinate but denied symptoms of hematuria, urinary discomfort, urinary frequency or urgency. Patient's daughter stated that patient has a history of frequent urinary tract infections. Patient was apparently last treated 2 months ago. Patient admitted to constipation and some chills. At this time, patient denied fevers, headaches, chest pain, palpitations, diarrhea, back pain, or weakness. At the time of evaluation, patient's abdominal pain resolved. PMHx- as stated above PSHX- hysterectomy and oopherectomy, cataract surgery, Cardiac cath 02/2016 with 2x stents Fam Hx- Mother had asthma, heart disease, at age 92 Meds- Crestor 5mg po HS, Pepcid 20mg po daily, ASA 81mg po daily, Plavix 75mg po daily, Losartan 25mg PO qd, Furosemide 40mg PO qd, Meclizine 12.5mg PO BID, Esomeprazole 40mg PO qd. Social Hx- smoked 1ppd x 50 yrs, quit 20 yrs ago; social drinker in the past, denies current use. denies illicit drug use. Allergies- NKDA PMD- Dr. Gomez In ED: UA ordered which confirmed evidence of UTI. Patient administered fluid bolus, antibiotics and protonix. Blood cultures and Urine cultures pending. Present on Admission - Present on Admission Any Indicators Present on Admission: No Review of Systems - Review of Systems Systems not reviewed;Unavailable: Language Barrier - Constitutional Constitutional: As Per HPI, Chills, Frequent Falls. absent: Fever - EENT Eyes: absent: Blurred Vision, Change in Vision Nose/Mouth/Throat: absent: Facial Pain, Neck Pain - Cardiovascular Cardiovascular: absent: Chest Pain, Chest Pain at Rest, Dyspnea - Respiratory Respiratory: absent: Cough, Dyspnea - Gastrointestinal Gastrointestinal: Abdominal Pain, Constipation. absent: Diarrhea, Nausea, Vomiting - Genitourinary Genitourinary: As Per HPI, Freq UTI. absent: Change in Urinary Stream, Difficulty Urinating, Dysuria, Flank Pain, Hematuria, Urinary Incontinence, Urinary Frequency, Urinary Urgency - Musculoskeletal Musculoskeletal: Arthralgias. absent: Back Pain - Integumentary Integumentary: Dry Skin. absent: Swelling - Neurological Neurological: Dizziness. absent: Abnormal Movements, Weakness - Psychiatric Psychiatric: Anxiety Past Patient History - Infectious Disease Hx of Infectious Diseases: None - Tetanus Immunizations Tetanus Immunization: Unknown - Past Medical History & Family History Past Medical History?: Yes - Past Social History Smoking Status: Former Smoker - CARDIAC Hx Hypercholesterolemia: Yes Hx Hypertension: Yes - PULMONARY Hx Asthma: Yes Hx Chronic Obstructive Pulmonary Disease (COPD): Yes - NEUROLOGICAL Hx Seizures: No - HEENT Hx HEENT Problems: Yes Hx Cataracts: Yes (right eye) Hx Glaucoma: Yes (left eye) Other/Comment: [place] LEFT EAR - RENAL Hx Chronic Kidney Disease: No - HEMATOLOGICAL/ONCOLOGICAL Hx Anemia: Yes - INTEGUMENTARY Hx Dermatological Problems: No - MUSCULOSKELETAL/RHEUMATOLOGICAL Hx Arthritis: Yes Hx Fractures: Yes (left wrist AND RT. HIP) Hx Osteoporosis: Yes Hx Rheumatoid Arthritis: Yes - GASTROINTESTINAL Hx Gastritis: Yes - GENITOURINARY/GYNECOLOGICAL Hx Sexually Transmitted Disorders: No - PSYCHIATRIC Hx Anxiety: Yes Hx Substance Use: No - SURGICAL HISTORY Hx Coronary Stent: Yes (cad cath 02/2016 with stent) - ANESTHESIA Hx Anesthesia: Yes Hx Anesthesia Reactions: No Hx Malignant Hyperthermia: No Meds Allergies/Adverse Reactions: Allergies Allergy/AdvReac Type Severity Reaction Status Date / Time No Known Allergies Allergy Verified 02/15/17 19:47 Physical Exam - Constitutional Appears: Non-toxic, No Acute Distress - Head Exam Head Exam: ATRAUMATIC, NORMAL INSPECTION, NORMOCEPHALIC - Eye Exam Eye Exam: EOMI, Normal appearance, PERRL Pupil Exam: NORMAL ACCOMODATION, PERRL - ENT Exam ENT Exam: Mucous Membranes Dry - Neck Exam Neck exam: Positive for: Full Rom - Respiratory Exam Respiratory Exam: NORMAL BREATHING PATTERN. absent: Wheezes - Cardiovascular Exam Cardiovascular Exam: +S1, +S2 - GI/Abdominal Exam GI & Abdominal Exam: Hyperactive Bowel Sounds, Soft. absent: Firm, Guarding, Tenderness Additional comments: denied tenderness to epigastric or suprapubic regions at time of evaluation - Expanded GI/Abdominal Exam Expanded Expanded GI & Abdominal Exam: absent: Squires's Sign, Rovsing's Sign, McBurney's Point Tenderness - Extremities Exam Extremities exam: Positive for: full ROM, joint swelling (knee bilaterally), pedal pulses present. Negative for: calf tenderness, pedal edema, tenderness - Back Exam Back exam: FULL ROM. absent: CVA tenderness (L), CVA tenderness (R) - Neurological Exam Neurological exam: Alert, CN II-XII Intact, Oriented x3 - Psychiatric Exam Psychiatric exam: Normal Affect, Normal Mood - Skin Skin Exam: Dry, Intact, Normal Color, Pallor, Warm Results - Vital Signs Recent Vital Signs: Last Vital Signs Temp 99 F 03/11/17 22:00 Pulse 70 03/11/17 22:00 Resp 16 03/11/17 22:05 BP Pulse Ox 98 03/12/17 00:00 - Labs Result Diagrams: 03/11/17 22:49 03/11/17 22:49 Labs: Laboratory Results - last 24 hr 03/11/17 03/11/17 03/11/17 22:14 22:49 22:49 WBC 9.1 D RBC 3.84 Hgb 10.8 L Hct 33.3 L MCV 86.7 MCH 28.1 MCHC 32.4 L RDW 14.1 Plt Count 231 MPV 9.1 Neut % (Auto) 68.4 Lymph % (Auto) 19.6 L Harper % (Auto) 9.2 Eos % (Auto) 2.1 Baso % (Auto) 0.7 Neut # 6.2 Lymph # 1.8 Harper # 0.8 Eos # 0.2 Baso # 0.1 Sodium 142 Potassium 4.1 Chloride 97 L Carbon Dioxide 30 Anion Gap 19 BUN 35 H Creatinine 1.3 H Est GFR ( Amer) 47 Est GFR (Non-Af Amer) 39 POC Glucose (mg/dL) 232 H Random Glucose 209 H Lactic Acid Calcium 9.3 Total Bilirubin 0.1 L AST 22 ALT 19 Alkaline Phosphatase 71 Troponin I 0.0270 Total Protein 7.5 Albumin 4.1 Globulin 3.4 Albumin/Globulin Ratio 1.2 Lipase 29 Urine Color Urine Clarity Urine pH Ur Specific Ralph Urine Protein Urine Glucose (UA) Urine Ketones Urine Blood Urine Nitrate Urine Bilirubin Urine Urobilinogen Ur Leukocyte Esterase Urine WBC (Auto) Urine RBC (Auto) Urine WBC Clumps (Auto) Urine Bacteria 03/11/17 03/11/17 22:49 23:02 WBC RBC Hgb Hct MCV MCH MCHC RDW Plt Count MPV Neut % (Auto) Lymph % (Auto) Harper % (Auto) Eos % (Auto) Baso % (Auto) Neut # Lymph # Harper # Eos # Baso # Sodium Potassium Chloride Carbon Dioxide Anion Gap BUN Creatinine Est GFR ( Amer) Est GFR (Non-Af Amer) POC Glucose (mg/dL) Random Glucose Lactic Acid 1.0 Calcium Total Bilirubin AST ALT Alkaline Phosphatase Troponin I Total Protein Albumin Globulin Albumin/Globulin Ratio Lipase Urine Color Yellow Urine Clarity Turbid Urine pH 7.0 Ur Specific Ralph 1.011 Urine Protein 2+ H Urine Glucose (UA) Normal Urine Ketones Negative Urine Blood 1+ H Urine Nitrate Positive H Urine Bilirubin Negative Urine Urobilinogen Normal Ur Leukocyte Esterase 3+ H Urine WBC (Auto) 991 H Urine RBC (Auto) 9 H Urine WBC Clumps (Auto) Mod H Urine Bacteria Many H Assessment & Plan (1) UTI (urinary tract infection) Assessment and Plan: UA consistent with UTI F/U UC Received one dose of Rocephin in ED Rocephin daily until UC results n/s @ 75mls/hr Continue to monitor Status: Acute (2) CAD (coronary artery disease) Assessment and Plan: Hx of coronary stenting in 2016 Cont ASA, Plavix and Crestor daily Heart Healthy diet Status: Chronic Priority: High (3) Diabetes mellitus Assessment and Plan: ISS Low dose A1c 01/12/17 was 7.1 F/U accucheks Status: Chronic Priority: Medium (4) Hypertension Assessment and Plan: Normotensive Losartan 25 mg PO daily Cont to monitor Status: Chronic Priority: Medium (5) Vertigo Assessment and Plan: Meclizine 12.5mg PO BID Fall risk precautions Status: Chronic (6) Arthritis Assessment and Plan: Will benefit from PT/OT services Hx of frequent falls in the past (not on this admission) Status: Chronic (7) Prophylactic measure Assessment and Plan: Heparin SC Q8 Pepcid 20 mg PO daily Fall risk precautions Will benefit from PT/OT due to arthritis and hx of frequent falls in the past. Status: Acute <Jose Vidal - Last Filed: 03/12/17 06:31> Results - Vital Signs Recent Vital Signs: Last Vital Signs Temp 98.7 F 03/12/17 04:00 Pulse 57 L 03/12/17 04:00 Resp 20 03/12/17 04:00 BP 136/52 L 03/12/17 04:00 Pulse Ox 97 03/12/17 04:00 - Labs Result Diagrams: 03/11/17 22:49 03/11/17 22:49 Assessment & Plan - Date & Time Date: 03/12/17 (I have seen and examined the patient. I agree with the findings and plan of care as documented by Dr. Blue. Patient with UTI. History of CAD and diabetes. Rocephin for now. Check urine and blood cultures. Continue home meds. Accuchecks and NISS. Monitor for acute changes. ) Time: 06:29
[2017-03-12] MEDS ORDERED: cefTRIAXone IV 1 gm in Dextros 50 ML IVPB ONE (00:19)
[2017-03-12] MEDS: Sodium Chloride 0.9% 1,000 ML IV SCH ×2 (05:51→20:00)
[2017-03-12 07:38] LABS: BASO # 0.1 K/uL (0.0-0.2); BASO % 0.8 % (0.0-2.0); EOS # 0.3 K/uL (0.0-0.7); EOS % 3.2 % (0.0-4.0); HEMOGLOBIN 9.7 g/dL (11.0-16.0); LYMPH # 1.9 K/uL (1.0-4.3); LYMPH % 19.6 % (20.0-40.0); MEAN CELL VOLUME 86.7 fL (81.0-99.0); MEAN CORPUSCULAR HEMOGLOBIN 28.8 pg (27.0-31.0); MEAN CORPUSCULAR HGB CONC 33.2 g/dL (33.0-37.0); MEAN PLATELET VOLUME 8.8 fL (7.2-11.7); MONO % 10.5 % (0.0-10.0); NEUT # 6.5 K/uL (1.8-7.0); NEUT % 65.9 % (50.0-75.0); NRBC % 0.1 % (0.0-2.0); RBC 3.37 Mil/uL (3.80-5.20); RED CELL DISTRIBUTION WIDTH 14.3 % (11.5-14.5); WHITE BLOOD COUNT 9.9 K/uL (4.8-10.8)
[2017-03-12] MEDS: (Novolog) Insulin Aspart, Recombinant 100 u/ml 10 ml vial SC SCH ×4 (08:03→21:39)
[2017-03-12 08:08] LABS: ALBUMIN 3.5 g/dL (3.5-5.0)
[2017-03-12 08:11] LABS: ALB/GLOB RATIO 1.3 (1.0-2.1)
[2017-03-12 08:12] LABS: CALCIUM 8.4 mg/dl (8.6-10.4); MAGNESIUM 1.9 mg/dL (1.6-2.3)
[2017-03-12 09:58] LABS: CK-MB 0.64 ng/mL (0.0-3.38)
--- NOTE | 2017-03-12 12:49 | RAD ---
PROCEDURE: Radiographs of the chest and abdomen (obstructive series) HISTORY: abd pain COMPARISON: No prior. TECHNIQUE: AP radiograph of the chest, with upright and supine radiographs of the abdomen. FINDINGS: CHEST: Lungs: Clear. Cardiovascular: Normal size heart. No pulmonary vascular congestion. Pleura: No pleural fluid. No pneumothorax. Other findings: None. ABDOMEN AND PELVIS: Bowel: Constipation without fecal impaction or obstruction. Free air: None. Bones: Unremarkable. Other findings: None. IMPRESSION: No acute findings related to/accounting for the clinical presentation. Concordant results with the preliminary interpretation rendered by the emergency department physician procedure.
--- NOTE | 2017-03-12 14:24 | CARD ---
APPROVED REPORT EKG Measurement Heart [id number] <Conclusion> Sinus bradycardia Left bundle branch block Abnormal ECG
[2017-03-12 15:24] LABS: CK-MB 0.7 ng/mL (0.0-3.38)
--- NOTE | 2017-03-12 15:49 | CP.PCM.PN ---
<Abdulkadir Villarreal - Last Filed: 03/12/17 15:38> Subjective - Date & Time of Evaluation Date of Evaluation: 03/12/17 Time of Evaluation: 10:00 - Subjective Subjective: PGY1 Medicine Note for Dr. Jalloh Patient seen and examined this morning at bedside. Patient states she is feeling better, but does not feel 100%. She does not want to go home because she does not want to have to come back. Patient denies any burning with urination or increase in frequency. Tolerating diet well. Patient denies f/c, n/ v, d/c, sob or cp. Objective - Vital Signs/Intake and Output Vital Signs (last 24 hours): Temp Pulse Resp BP Pulse Ox 98.3 F 60 18 123/55 L 96 03/12/17 07:35 03/12/17 07:35 03/12/17 07:35 03/12/17 10:42 03/12/17 07:35 - Medications Medications: Current Medications Aspirin (Ecotrin) 81 mg PO DAILY [facility] Last Admin: 03/12/17 10:29 Dose: 81 mg Clopidogrel Bisulfate (Plavix) 75 mg PO DAILY [facility] Last Admin: 03/12/17 10:30 Dose: 75 mg Famotidine (Pepcid) 20 mg PO DAILY [facility] Last Admin: 03/12/17 10:41 Dose: 20 mg Furosemide (Lasix) 40 mg PO DAILY [facility] Last Admin: 03/12/17 10:42 Dose: 40 mg Heparin Sodium (Porcine) (Heparin) 5,000 units SC Q8 [facility] Last Admin: 03/12/17 14:56 Dose: 5,000 units Ceftriaxone Sodium 1 gm/ (Sodium Chloride) 100 mls @ 100 mls/hr IVPB DAILY [facility] Last Admin: 03/12/17 10:42 Dose: 100 mls/hr Sodium Chloride (Sodium Chloride 0.9%) 1,000 mls @ 75 mls/hr IV .[id number] [facility] Last Admin: 03/12/17 05:51 Dose: 75 mls/hr Insulin Aspart (Novolog) 0 unit SC ACHS [facility] PRN Reason: Protocol Last Admin: 03/12/17 12:24 Dose: 5 unit Losartan Potassium (Cozaar) 25 mg PO DAILY [facility] Last Admin: 03/12/17 10:30 Dose: 25 mg Meclizine HCl (Antivert) 12.5 mg PO BID [facility] Last Admin: 03/12/17 10:30 Dose: 12.5 mg Pneumococcal Polyvalent Vaccine (Pneumovax 23 Vaccine) 0.5 ml IM .ONCE ONE Stop: 03/14/17 10:01 Rosuvastatin Calcium (Crestor) 5 mg PO HS [facility] - Labs Labs: 03/12/17 07:20 03/12/17 07:20 APTT 32 SECONDS (21-34) 03/12/17 07:20 - Constitutional Appears: Non-toxic, No Acute Distress - Head Exam Head Exam: ATRAUMATIC, NORMOCEPHALIC - ENT Exam ENT Exam: Mucous Membranes Moist - Respiratory Exam Respiratory Exam: Clear to Ausculation Bilateral, NORMAL BREATHING PATTERN. absent: Accessory Muscle Use, Wheezes, Respiratory Distress - Cardiovascular Exam Cardiovascular Exam: REGULAR RHYTHM, +S1, +S2 - GI/Abdominal Exam GI & Abdominal Exam: Soft, Normal Bowel Sounds. absent: Distended, Firm, Guarding, Rigid - Neurological Exam Neurological Exam: Alert, Awake, Oriented x3 - Psychiatric Exam Psychiatric exam: Normal Affect, Normal Mood - Skin Skin Exam: Dry, Normal Color, Warm Assessment and Plan - Assessment and Plan (Free Text) Plan: (1) UTI (urinary tract infection) Assessment and Plan: UA consistent with UTI F/U UC Received one dose of Rocephin in ED Rocephin daily until UC results n/s @ 75mls/hr Continue to monitor (2) CAD (coronary artery disease) Assessment and Plan: Hx of coronary stenting in 2016 Cont ASA, Plavix and Crestor daily Heart Healthy diet (3) Diabetes mellitus Assessment and Plan: ISS Low dose A1c 01/12/17 was 7.1 F/U accucheks (4) Hypertension Assessment and Plan: Normotensive Losartan 25 mg PO daily Cont to monitor (5) Vertigo Assessment and Plan: Meclizine 12.5mg PO BID Fall risk precautions (6) Arthritis Assessment and Plan: Will benefit from PT/OT services Hx of frequent falls in the past (not on this admission) (7) Prophylactic measure Assessment and Plan: Heparin SC Q8 Pepcid 20 mg PO daily Fall risk precautions Case discussed with Dr. Yeimi Villarreal PGY1 <Hieu Jalloh - Last Filed: 03/13/17 07:53> Objective - Vital Signs/Intake and Output Vital Signs (last 24 hours): Temp Pulse Resp BP Pulse Ox 98.6 F 62 20 138/67 96 03/12/17 23:15 03/12/17 23:15 03/12/17 23:15 03/12/17 23:15 03/12/17 23:15 Intake and Output: 03/13/17 03/13/17 06:59 18:59 Intake Total 850 Balance 850 - Medications Medications: Current Medications Acetaminophen (Tylenol 325mg Tab) 650 mg PO Q6 PRN PRN Reason: Pain, Mild (1-3) Last Admin: 03/13/17 06:11 Dose: 650 mg Aspirin (Ecotrin) 81 mg PO DAILY [facility] Last Admin: 03/12/17 10:29 Dose: 81 mg Clopidogrel Bisulfate (Plavix) 75 mg PO DAILY [facility] Last Admin: 03/12/17 10:30 Dose: 75 mg Famotidine (Pepcid) 20 mg PO DAILY [facility] Last Admin: 03/12/17 10:41 Dose: 20 mg Furosemide (Lasix) 40 mg PO DAILY [facility] Last Admin: 03/12/17 10:42 Dose: 40 mg Heparin Sodium (Porcine) (Heparin) 5,000 units SC Q8 [facility] Last Admin: 03/13/17 06:11 Dose: 5,000 units Ceftriaxone Sodium 1 gm/ (Sodium Chloride) 100 mls @ 100 mls/hr IVPB DAILY [facility] Last Admin: 03/12/17 10:42 Dose: 100 mls/hr Sodium Chloride (Sodium Chloride 0.9%) 1,000 mls @ 75 mls/hr IV .[id number] [facility] Last Admin: 03/13/17 02:00 Dose: 75 mls/hr Insulin Aspart (Novolog) 0 unit SC ACHS [facility] PRN Reason: Protocol Last Admin: 03/12/17 21:39 Dose: Not Given Losartan Potassium (Cozaar) 25 mg PO DAILY [facility] Last Admin: 03/12/17 10:30 Dose: 25 mg Meclizine HCl (Antivert) 12.5 mg PO BID [facility] Last Admin: 03/12/17 18:01 Dose: 12.5 mg Pneumococcal Polyvalent Vaccine (Pneumovax 23 Vaccine) 0.5 ml IM .ONCE ONE Stop: 03/14/17 10:01 Rosuvastatin Calcium (Crestor) 5 mg PO HS [facility] Last Admin: 03/12/17 21:39 Dose: 5 mg - Labs Labs: 03/12/17 07:20 03/12/17 07:20 APTT 32 SECONDS (21-34) 03/12/17 07:20 Attending/Attestation - Attestation I have personally seen and examined this patient.: Yes I have fully participated in the care of the patient.: Yes I have reviewed all pertinent clinical information, including history, physical exam and plan: Yes Notes (Text): Medical attending: Patient was seen and examined by me, agrees the above note by medical biller. At the time we saw her were still pending on additional cardiac enzymes. On physical exam she did not have any pain or discomfort. She also had a very benign abdomen with palpation. She did not have any tenderness even with deep palpation of the quadrants of her abdomen. Because of her history of cardiac problems as well as history of diabetes were to wait on additional cardiac enzymes to return before he make a decision on discharging her not. Furthermore reviewed the lab work particularly the urinalysis suggests that she has at least a urinary tract infection. So at this time were to continue with that there is also a urine culture that was taken last night as well Thank you very much, Hieu Jalloh
[2017-03-13] MEDS: Sodium Chloride 0.9% 1,000 ML IV SCH ×2 (02:00→09:40)
[2017-03-13] MEDS: (Novolog) Insulin Aspart, Recombinant 100 u/ml 10 ml vial SC SCH ×2 (08:56→13:12)
[2017-03-13] MEDS ORDERED: Albuterol-Ipratrop 3 mg / 0.5 (3 ml) UD INH STA ×2 (09:08→12:59)
[2017-03-13 12:02] VITALS: TEMP 98.7
[2017-03-13 16:23] VITALS: BP 148/54; PULSE 62; RESP 18; O2SAT 98
--- NOTE | 2017-03-13 19:35 | CP.PCM.DIS ---
<Abdulkadir Villarreal - Last Filed: 03/13/17 19:32> Provider - Provider Date of Admission: 03/11/17 23:45 Attending physician: Hieu Jalloh DO Time Spent in preparation of Discharge (in minutes): 45 Hospital Course - Lab Results Lab Results: Micro Results 03/12/17 Unknown Urine,Catheterized Urine Culture - Preliminary Gram Negative Reggie 03/11/17 23:50 Blood-Venous Blood Culture - Preliminary NO GROWTH AFTER 24 HOURS Most Recent Lab Values WBC 9.9 K/uL (4.8-10.8) 03/12/17 07:20 RBC 3.37 Mil/uL (3.80-5.20) L 03/12/17 07:20 Hgb 9.7 g/dL (11.0-16.0) L 03/12/17 07:20 Hct 29.2 % (34.0-47.0) L 03/12/17 07:20 MCV 86.7 fL (81.0-99.0) 03/12/17 07:20 MCH 28.8 pg (27.0-31.0) 03/12/17 07:20 MCHC 33.2 g/dL (33.0-37.0) 03/12/17 07:20 RDW 14.3 % (11.5-14.5) 03/12/17 07:20 Plt Count 214 K/uL (130-400) 03/12/17 07:20 MPV 8.8 fL (7.2-11.7) 03/12/17 07:20 Neut % (Auto) 65.9 % (50.0-75.0) 03/12/17 07:20 Lymph % (Auto) 19.6 % (20.0-40.0) L 03/12/17 07:20 [place] % (Auto) 10.5 % (0.0-10.0) H 03/12/17 07:20 Eos % (Auto) 3.2 % (0.0-4.0) 03/12/17 07:20 Baso % (Auto) 0.8 % (0.0-2.0) 03/12/17 07:20 Neut # 6.5 K/uL (1.8-7.0) 03/12/17 07:20 Lymph # 1.9 K/uL (1.0-4.3) 03/12/17 07:20 [place] # 1.0 K/uL (0.0-0.8) H 03/12/17 07:20 Eos # 0.3 K/uL (0.0-0.7) 03/12/17 07:20 Baso # 0.1 K/uL (0.0-0.2) 03/12/17 07:20 APTT 32 SECONDS (21-34) 03/12/17 07:20 Sodium 141 mmol/L (132-148) 03/12/17 07:20 Potassium 4.0 mmol/L (3.6-5.2) 03/12/17 07:20 Chloride 101 mmol/L (98-107) 03/12/17 07:20 Carbon Dioxide 29 mmol/L (22-30) 03/12/17 07:20 Anion Gap 15 (10-20) 03/12/17 07:20 BUN 26 mg/dL (7-17) H 03/12/17 07:20 Creatinine 1.1 MG/DL (0.7-1.2) 03/12/17 07:20 Est GFR ( Amer) 57 03/12/17 07:20 Est GFR (Non-Af Amer) 47 03/12/17 07:20 POC Glucose (mg/dL) 309 mg/dL (65-110) H 03/13/17 11:46 Random Glucose 170 mg/dL (65-105) H 03/12/17 07:20 Lactic Acid 1.0 mmol/L (0.7-2.1) 03/11/17 22:49 Calcium 8.4 mg/dl (8.6-10.4) L 03/12/17 07:20 Phosphorus 2.6 mg/dL (2.5-4.5) 03/12/17 07:20 Magnesium 1.9 mg/dL (1.6-2.3) 03/12/17 07:20 Total Bilirubin 0.4 mg/dL (0.2-1.3) 03/12/17 07:20 AST 26 U/L (14-36) 03/12/17 07:20 ALT 19 U/L (9-52) 03/12/17 07:20 Alkaline Phosphatase 59 U/L (38-126) 03/12/17 07:20 Total Creatine Kinase 38 U/L (30-135) 03/12/17 14:53 CK-MB (Mass) 0.70 ng/mL (0.0-3.38) 03/12/17 14:53 Troponin I 0.0270 ng/mL (0.00-0.120) 03/11/17 22:49 Troponin I, Quant 0.0240 ng/mL (0.00-0.120) 03/12/17 14:53 Total Protein 6.3 g/dL (6.3-8.3) 03/12/17 07:20 Albumin 3.5 g/dL (3.5-5.0) 03/12/17 07:20 Globulin 2.8 gm/dL (2.2-3.9) 03/12/17 07:20 Albumin/Globulin Ratio 1.3 (1.0-2.1) 03/12/17 07:20 Lipase 31 U/L (23-300) 03/12/17 07:20 Urine Color Yellow (YELLOW) 03/11/17 23:02 Urine Clarity Turbid (Clear) 03/11/17 23:02 Urine pH 7.0 (5.0-8.0) 03/11/17 23:02 Ur Specific [place] 1.011 (1.003-1.030) 03/11/17 23:02 Urine Protein 2+ mg/dL (NEGATIVE) H 03/11/17 23:02 Urine Glucose (UA) Normal mg/dL (Normal) 03/11/17 23:02 Urine Ketones Negative mg/dL (NEGATIVE) 03/11/17 23:02 Urine Blood 1+ (NEGATIVE) H 03/11/17 23:02 Urine Nitrate Positive (NEGATIVE) H 03/11/17 23:02 Urine Bilirubin Negative (NEGATIVE) 03/11/17 23:02 Urine Urobilinogen Normal mg/dL (0.2-1.0) 03/11/17 23:02 Ur Leukocyte Esterase 3+ Branden/uL (Negative) H 03/11/17 23:02 Urine WBC (Auto) 991 /hpf (0-5) H 03/11/17 23:02 Urine RBC (Auto) 9 /hpf (0-3) H 03/11/17 23:02 Urine WBC Clumps (Auto) Mod /hpf (NONE) H 03/11/17 23:02 Urine Bacteria Many (<OCC) H 03/11/17 23:02 - Hospital Course Hospital Course: HPI: Patient is an 86 year old female with PMHx significant for CAD, HTN, DM, gastritis, asthma, arthritis, COPD, anxiety and history of abdominal hernia presents with complaints of epigastric abdominal pain of two day duration. The abdominal pain was limited to the epigastric area without radiation. Patient took Nexium as well as Mylanta without any relief. Patient was initially accompanied ny daughter who has to leave abruptly during the evaluation. She stated that her mother has not eaten in two days nor had she had a bowel movement. Apparently, the incontinence of bowels has been a norm for the patient whenever she recieves her insulin medication, per daughter. Patient was able to urinate but stated that patient has a history of frequent urinary tract infections. Patient was apparently last treated 2 months ago. Patient admitted to constipation and some chills. At this time, patient denied fevers, headaches, chest pain, palpitations, diarrhea, back pain, or weakness. At this time of evaluation, patient's abdominal pain resolved. While in the emergency department patient received an ECG which showed a rate of 60 with a LBBB which was unchanged from prior ECG. UA was ordered which confirmed evidence of UTI. Patient administered fluid bolus , antibiotics - Rocephin IV - and protonix. Patient received an Abdomen Obstructive Series X-ray which showed constipation without fecal impaction or obstruction with no acute findings related to/ accounting for the clinical presentation. Blood cultures collected 03/11/2017 showed no growth. Throughout the course of her stay patient remained on Rocephin to cover for UTI. Discharge Instructions: Please discharge patient home, as per Dr. Jalloh. Patient was given prescription for Ciprofloxacin and should take medications as instructed. Patient is to follow up with Dr. Gomez in 1 week. If symptoms worsen, patient is to return to the hospital for further evaluation and treatment. Instructions were explained to the patient. Patient understands and agrees. Discharge Medications: Ciprofloxacin 250mg PO BID x 4 days - Date & Time of H&P Date of H&P: 03/12/17 Time of H&P: 00:15 Discharge Exam - Head Exam Head Exam: ATRAUMATIC, NORMOCEPHALIC - Eye Exam Eye Exam: EOMI - ENT Exam ENT Exam: Mucous Membranes Moist - Respiratory Exam Respiratory Exam: Wheezes (expiratory), NORMAL BREATHING PATTERN. absent: Accessory Muscle Use, Rales, Rhonchi, Respiratory Distress - Cardiovascular Exam Cardiovascular Exam: REGULAR RHYTHM, +S1, +S2 - GI/Abdominal Exam GI & Abdominal Exam: Normal Bowel Sounds. absent: Rigid, Soft, Tenderness - Neurological Exam Neurological exam: Alert, Normal Gait, Oriented x3 - Psychiatric Exam Psychiatric exam: Normal Affect, Normal Mood - Skin Skin Exam: Dry, Normal Color, Warm Discharge Plan - Discharge Medications Prescriptions: Ciprofloxacin 250 mg PO BID #8 ml - Follow Up Plan Condition: GOOD Disposition: HOME/ ROUTINE Instructions: Ciprofloxacin (By mouth), Constipation (DC), Urinary Tract Infection in Women (DC), Heart Healthy Diet (DC) Additional Instructions: Please discharge patient home, as per Dr. Jalloh. Patient is to continue medications as instructed. Patient is to follow up with Dr. Gomez in 1 week. If symptoms worsen, patient is to return to the hospital for further evaluation and treatment. Instructions were explained to the patient. Patient understands and agrees. Discharge medications: Ciprofloxacin 250 mg PO BID x 4 days Continue Home Medications Referrals: Chuck Gmoez MD [Staff Provider] - <Hieu Jalloh - Last Filed: 03/14/17 07:52> Provider - Provider Date of Admission: 03/11/17 23:45 Attending physician: Hieu Jalloh, Hospital Course - Lab Results Lab Results: Micro Results 03/12/17 Unknown Urine,Catheterized Urine Culture - Preliminary Gram Negative Reggie 03/11/17 23:50 Blood-Venous Blood Culture - Preliminary NO GROWTH AFTER 24 HOURS Most Recent Lab Values WBC 9.9 K/uL (4.8-10.8) 03/12/17 07:20 RBC 3.37 Mil/uL (3.80-5.20) L 03/12/17 07:20 Hgb 9.7 g/dL (11.0-16.0) L 03/12/17 07:20 Hct 29.2 % (34.0-47.0) L 03/12/17 07:20 MCV 86.7 fL (81.0-99.0) 03/12/17 07:20 MCH 28.8 pg (27.0-31.0) 03/12/17 07:20 MCHC 33.2 g/dL (33.0-37.0) 03/12/17 07:20 RDW 14.3 % (11.5-14.5) 03/12/17 07:20 Plt Count 214 K/uL (130-400) 03/12/17 07:20 MPV 8.8 fL (7.2-11.7) 03/12/17 07:20 Neut % (Auto) 65.9 % (50.0-75.0) 03/12/17 07:20 Lymph % (Auto) 19.6 % (20.0-40.0) L 03/12/17 07:20 [place] % (Auto) 10.5 % (0.0-10.0) H 03/12/17 07:20 Eos % (Auto) 3.2 % (0.0-4.0) 03/12/17 07:20 Baso % (Auto) 0.8 % (0.0-2.0) 03/12/17 07:20 Neut # 6.5 K/uL (1.8-7.0) 03/12/17 07:20 Lymph # 1.9 K/uL (1.0-4.3) 03/12/17 07:20 [place] # 1.0 K/uL (0.0-0.8) H 03/12/17 07:20 Eos # 0.3 K/uL (0.0-0.7) 03/12/17 07:20 Baso # 0.1 K/uL (0.0-0.2) 03/12/17 07:20 APTT 32 SECONDS (21-34) 03/12/17 07:20 Sodium 141 mmol/L (132-148) 03/12/17 07:20 Potassium 4.0 mmol/L (3.6-5.2) 03/12/17 07:20 Chloride 101 mmol/L (98-107) 03/12/17 07:20 Carbon Dioxide 29 mmol/L (22-30) 03/12/17 07:20 Anion Gap 15 (10-20) 03/12/17 07:20 BUN 26 mg/dL (7-17) H 03/12/17 07:20 Creatinine 1.1 MG/DL (0.7-1.2) 03/12/17 07:20 Est GFR ( Amer) 57 03/12/17 07:20 Est GFR (Non-Af Amer) 47 03/12/17 07:20 POC Glucose (mg/dL) 309 mg/dL (65-110) H 03/13/17 11:46 Random Glucose 170 mg/dL (65-105) H 03/12/17 07:20 Lactic Acid 1.0 mmol/L (0.7-2.1) 03/11/17 22:49 Calcium 8.4 mg/dl (8.6-10.4) L 03/12/17 07:20 Phosphorus 2.6 mg/dL (2.5-4.5) 03/12/17 07:20 Magnesium 1.9 mg/dL (1.6-2.3) 03/12/17 07:20 Total Bilirubin 0.4 mg/dL (0.2-1.3) 03/12/17 07:20 AST 26 U/L (14-36) 03/12/17 07:20 ALT 19 U/L (9-52) 03/12/17 07:20 Alkaline Phosphatase 59 U/L (38-126) 03/12/17 07:20 Total Creatine Kinase 38 U/L (30-135) 03/12/17 14:53 CK-MB (Mass) 0.70 ng/mL (0.0-3.38) 03/12/17 14:53 Troponin I 0.0270 ng/mL (0.00-0.120) 03/11/17 22:49 Troponin I, Quant 0.0240 ng/mL (0.00-0.120) 03/12/17 14:53 Total Protein 6.3 g/dL (6.3-8.3) 03/12/17 07:20 Albumin 3.5 g/dL (3.5-5.0) 03/12/17 07:20 Globulin 2.8 gm/dL (2.2-3.9) 03/12/17 07:20 Albumin/Globulin Ratio 1.3 (1.0-2.1) 03/12/17 07:20 Lipase 31 U/L (23-300) 03/12/17 07:20 Urine Color Yellow (YELLOW) 03/11/17 23:02 Urine Clarity Turbid (Clear) 03/11/17 23:02 Urine pH 7.0 (5.0-8.0) 03/11/17 23:02 Ur Specific [place] 1.011 (1.003-1.030) 03/11/17 23:02 Urine Protein 2+ mg/dL (NEGATIVE) H 03/11/17 23:02 Urine Glucose (UA) Normal mg/dL (Normal) 03/11/17 23: Urine Ketones Negative mg/dL (NEGATIVE) 03/11/17 23: Urine Blood 1+ (NEGATIVE) H 03/11/17 23:02 Urine Nitrate Positive (NEGATIVE) H 03/11/17 23: Urine Bilirubin Negative (NEGATIVE) 03/11/17 23: Urine Urobilinogen Normal mg/dL (0.2-1.0) 03/11/17 23:02 Ur Leukocyte Esterase 3+ Branden/uL (Negative) H 03/11/17 23:02 Urine WBC (Auto) 991 /hpf (0-5) H 03/11/17 23:02 Urine RBC (Auto) 9 /hpf (0-3) H 03/11/17 23:02 Urine WBC Clumps (Auto) Mod /hpf (NONE) H 03/11/17 23:02 Urine Bacteria Many (<OCC) H 03/11/17 23:02 Attending/Attestation - Attestation I have personally seen and examined this patient.: Yes I have fully participated in the care of the patient.: Yes I have reviewed all pertinent clinical information, including history, physical exam and plan: Yes Notes (Text): Medical attending: Patient was seen and examined by me, agrees the above note by medical education coordinator. Agrees the above discharge note by the medical education coordinator, I also spoke with the patient's primary care physician and informed him as well she's continued to follow-up with him and she is aware that. The patient's will need to take additional days of oral Cipro. Thank you very much, Hieu Jalloh
[2017-03-14] MEDS ORDERED: Pneumococcal 23-Valent Vaccine IM ONE (10:00)
--- NOTE | 2017-03-14 19:29 | CARD ---
APPROVED REPORT EKG Measurement Heart [id number] <Conclusion> Sinus bradycardia Left bundle branch block Abnormal ECG
--- NOTE | 2017-03-14 19:30 | CARD ---
APPROVED REPORT EKG Measurement Heart [id number] <Conclusion> Normal sinus rhythm Left bundle branch block Abnormal ECG
== END 2017-03-13 16:34 | disposition home or self-care (01) ==
LOC: C.ER 22:00 → C.6T 23:45
PROVIDERS: ADMIT Hospitalist; ATTEND Hospitalist
DX: N39.0 Urinary tract infection, site not specified (principal); K59.00 Constipation, unspecified; M81.0 Age-related osteoporosis without current pathological fracture; I44.7 Left bundle-branch block, unspecified; I25.10 Atherosclerotic heart disease of native coronary artery without angina pectoris; I10 Essential (primary) hypertension; Z87.891 Personal history of nicotine dependence; J44.9 Chronic obstructive pulmonary disease, unspecified
CPT/HCPCS: 36415; 74022; 80053; 81001; 82948; 83605; 83690; 83735; 84100; 84484; 85025; 85730; 87040; 87086; 93005; 94640; 96374; 99285; C9113; G0378; J0696; J1644; J7040

== ENCOUNTER 2017-03-19 18:12 | Inpatient (IN) | payer MEDICARE, MEDICAID ==
[2017-03-19 18:12] VITALS: BMI 23.6
[2017-03-19] MEDS ORDERED: Sucralfate 1 gm/10 ml Oral Susp UD PO STA (19:58)
[2017-03-19] MEDS ORDERED: Sodium Chloride 0.9% 1,000 ML IV ONE (19:58)
[2017-03-19] MEDS ORDERED: Iohexol 240 (50 ml) PO ONE (20:01)
--- NOTE | 2017-03-19 20:05 | C.PDOC ---
History Of Present Illness 86 year old female who presents to the ER with a complaint of abdominal epigastric pain for the past 3 days and constipation. Patient states pain radiates to the chest; she also reports she has been increasingly forgetful and confused at times. Denies fever, chills, nausea, or vomiting. Chief Complaint (Nursing): Abdominal Pain History Per: Patient History/Exam Limitations: no limitations Onset/Duration Of Symptoms: Days Current Symptoms Are (Timing): Still Present Location Of Pain/Discomfort: Epigastric Radiation Of Pain To:: Chest Quality Of Discomfort: Unable To Describe Associated Symptoms: Constipation. denies: Fever, Chills, Nausea, Vomiting Exacerbating Factors: None Alleviating Factors: None Recent travel outside of the [place]: No Abnormal Vaginal Bleeding: No Past Medical History Reviewed: Historical Data, Nursing Documentation, Vital Signs Vital Signs: Last Vital Signs Temp 98.8 F 03/19/17 18:13 Pulse 63 03/19/17 22:56 Resp 18 03/19/17 22:56 BP 159/67 H 03/19/17 22:56 Pulse Ox 97 03/19/17 23:04 - Medical History PMH: Anemia, Anxiety, Arthritis, Asthma, Back Problems (HX CHRONIC BACK PAIN), CAD, COPD, Diabetes, Fractures (left wrist AND RT. HIP), Gastritis, HTN, Hypercholesterolemia, Osteoporosis, Rheumatoid Arthritis Surgical History: Coronary Stent (cad cath 02/2016 with stent) - [facility] Procedures APPLICATION OF SPLINT (06/18/14) EXCISION OF ASCENDING COLON, ENDO, DIAGN (12/05/16) EXCISION OF STOMACH, ENDO, DIAGN (12/05/16) FLUOROSCOPY OF LEFT HEART USING LOW OSMOLAR CONTRAST (02/05/16) GAIT TRAINING/AMBULAT TREATMENT USING ASSIST EQUIPMENT (11/08/15) INTRODUCE ANTI-INFLAM IN PERIPH NRV, PLEXI, PERC (11/08/15) INTRODUCE REGIONAL ANESTH IN PERIPH NRV, PLEXI, PERC (11/08/15) MEASURE OF CARDIAC SAMPL & PRESSURE, L HEART, PERC APPROACH (02/05/16) NEBULIZER THERAPY (06/16/14) REPAIR LEFT UPPER ARM TENDON, OPEN APPROACH (11/08/15) REPAIR OF HAMMER TOE (07/17/13) REPOSITION LEFT HUMERAL SHAFT WITH INT FIX, OPEN APPROACH (11/08/15) TRANSFUSE NONAUT RED BLOOD CELLS IN PERIPH VEIN, PERC (12/05/16) Family History: States: Unknown Family Hx - Social History Hx Tobacco Use: No Hx Alcohol Use: No Hx Substance Use: No - Immunization History Hx Tetanus Toxoid Vaccination: Yes (3 mos. ago) Hx Influenza Vaccination: No ("Not sure'') Hx Pneumococcal Vaccination: No (''Not sure'') Review Of Systems Constitutional: Negative for: Fever, Chills Gastrointestinal: Positive for: Abdominal Pain, Constipation. Negative for: Nausea, Vomiting Neurological: Positive for: Confusion. Negative for: Weakness, Numbness Physical Exam - Physical Exam Appears: Non-toxic, No Acute Distress, Other (Alert, Awake, Conscious) Skin: Normal Color, Warm, Dry Head: Atraumatic, Normacephalic Oral Mucosa: Moist Chest: Symmetrical, No Tenderness Cardiovascular: Rhythm Regular, No Murmur Respiratory: Normal Breath Sounds, No Rales, No Rhonchi, No Wheezing Gastrointestinal/Abdominal: Soft, Tenderness (Epigastric and mild RLQ) Neurological/Psych: Oriented x3, Normal Speech, Normal Cognition, Other (No focal deficits) ED Course And Treatment - Laboratory Results Result Diagrams: 03/19/17 20:46 03/19/17 20:46 ECG: Interpreted By Me, Viewed By La ECG Rhythm: Sinus Rhythm, L BBB ECG Interpretation: No Acute Changes, Abnormal Interpretation Of ECG: NSR, CLBBB. abnormal tracings. Rate From EC O2 Sat by Pulse Oximetry: 97 (Room air) Pulse Ox Interpretation: Normal - CT Scan/US CT Head Other Rad Studies (CT/US): Read By Radiologist, Radiology Report Reviewed CT/US Interpretation: EXAM: CT Head Without Intravenous Contrast. CLINICAL HISTORY: 86 years old, female; Signs and symptoms; Altered mental status/ memory loss; Confusion or. disorientation. TECHNIQUE: Axial computed tomography images of the head/brain without intravenous contrast. All CT scans at. this facility use one or more dose reduction techniques, viz.: automated exposure control; ma/kV. adjustment per patient size (including targeted exams where dose is matched to indication; i.e. head);. or iterative reconstruction technique. COMPARISON: No relevant prior studies available. FINDINGS: Limitations: Motion artifact - mild. Brain: Ewiy-cs-lejyqpyg atrophy. No definite intracranial hemorrhage. No mass. Few scattered foci. of decreased attenuation within periventricular/subcortical white matter. Probable chronic lacunar. infarct within RIGHT basal ganglia. No definite edema. Ventricles: No hydrocephalus. Bones/joints: No acute fracture. Soft tissues: Unremarkable. Vasculature: Atherosclerotic disease of intracranial arteries. Sinuses: Scattered minimal mucosal thickening. Mastoid air cells: No mastoid effusion. Orbits: Unremarkable as visualized. IMPRESSION: 1. Nonspecific white matter changes. Acute infarction may be CT occult within first 24 hours. If a. focal deficit persists, consider followup CT or MRI for further evaluation. 2. Incidental/non-acute findings are described above. Progress Note: CT head, CT abd/pel, CT chest, EKG, blood work, CXR, and urinalysis ordered. Pepcid and IV fluids administered. Disposition Discussed With Dr.: Jose Vidal Doctor Will See Patient In The: Hospital Counseled Patient/Family Regarding: Diagnosis - Disposition Disposition: HOSPITALIZED Disposition Time: 23:03 Condition: STABLE Forms: [facility] (Croatian) - POA Present On Arrival: None - Clinical Impression Clinical Impression: Chest pain, Renal failure, Urinary tract infection, Abdominal pain, Diabetes mellitus - Scribe Statement The provider has reviewed the documentation as recorded by the Scribmargo Aparicio All medical record entries made by the Shashiibmargo were at my direction and personally dictated by me. I have reviewed the chart and agree that the record accurately reflects my personal performance of the history, physical exam, medical decision making, and the department course for this patient. I have also personally directed, reviewed, and agree with the discharge instructions and disposition.
[2017-03-19 20:54] LABS: BASO # 0.1 K/uL (0.0-0.2); BASO % 0.8 % (0.0-2.0); EOS # 0.2 K/uL (0.0-0.7); EOS % 2.3 % (0.0-4.0); HEMATOCRIT 27.2 % (34.0-47.0); MEAN CELL VOLUME 86.3 fL (81.0-99.0); MEAN CORPUSCULAR HEMOGLOBIN 28.9 pg (27.0-31.0); MEAN CORPUSCULAR HGB CONC 33.4 g/dL (33.0-37.0); MONO % 14.7 % (0.0-10.0); WHITE BLOOD COUNT 7.1 K/uL (4.8-10.8)
[2017-03-19] MEDS ORDERED: Sodium Chloride 0.9% 1,000 ML ONE (20:54)
[2017-03-19] MEDS ORDERED: Iohexol 240 (50 ml) ONE (20:54)
[2017-03-19 21:04] LABS: CHLORIDE 94 mmol/L (98-107); POTASSIUM 4.3 mmol/L (3.6-5.2); SODIUM 133 mmol/L (132-148)
[2017-03-19 21:07] LABS: ALB/GLOB RATIO 1.3 (1.0-2.1); ALKALINE PHOSPHATASE 59 U/L (38-126); ALT/SGPT 24 U/L (9-52); AST/SGOT 25 U/L (14-36); BILIRUBIN,TOTAL 0.5 mg/dL (0.2-1.3); BLOOD UREA NITROGEN 53 mg/dL (7-17); CALCIUM 8.6 mg/dl (8.6-10.4); CARBON DIOXIDE 26 mmol/L (22-30); GFR AFRICAN-AMERICAN 30; GLUCOSE,RANDOM 303 mg/dL (65-105); TOTAL PROTEIN 6.6 g/dL (6.3-8.3)
[2017-03-19 21:26] LABS: RBC URINE 10 /hpf (0-3); TRANSITIONAL EPITHIAL 1 /hpf (0-3); URINE BACTERIA FEW (<OCC); URINE BILIRUBIN NEGATIVE (NEGATIVE); URINE BLOOD 1+ (NEGATIVE); URINE COLOR Yellow (YELLOW); URINE GLUCOSE (UA) NORMAL (Normal); URINE KETONE NEGATIVE (NEGATIVE); URINE LEUKOCYTE ESTERASE 3+ Leu/uL (Negative); URINE PROTEIN NEGATIVE (NEGATIVE); URINE UROBILINOGEN NORMAL mg/dL (0.2-1.0); WBC URINE 40 /hpf (0-5)
--- NOTE | 2017-03-19 22:46 | CT ---
EXAM: CT Head Without Intravenous Contrast CLINICAL HISTORY: 86 years old, female; Signs and symptoms; Altered mental status/memory loss; Confusion or disorientation TECHNIQUE: Axial computed tomography images of the head/brain without intravenous contrast. All CT scans at this facility use one or more dose reduction techniques, viz.: automated exposure control; ma/kV adjustment per patient size (including targeted exams where dose is matched to indication; i.e. head); or iterative reconstruction technique. COMPARISON: No relevant prior studies available. FINDINGS: Limitations: Motion artifact - mild. Brain: Hctd-bh-ugxedswb atrophy. No definite intracranial hemorrhage. No mass. Few scattered foci of decreased attenuation within periventricular/subcortical white matter. Probable chronic lacunar infarct within RIGHT basal ganglia. No definite edema. Ventricles: No hydrocephalus. Bones/joints: No acute fracture. Soft tissues: Unremarkable. Vasculature: Atherosclerotic disease of intracranial arteries. Sinuses: Scattered minimal mucosal thickening. Mastoid air cells: No mastoid effusion. Orbits: Unremarkable as visualized. IMPRESSION: 1. Nonspecific white matter changes. Acute infarction may be CT occult within first 24 hours. If a focal deficit persists, consider followup CT or MRI for further evaluation. 2. Incidental/non-acute findings are described above.
--- NOTE | 2017-03-19 22:57 | CT ---
EXAM: CT Chest Without Intravenous Contrast CLINICAL HISTORY: 86 years old, female; Pain; Abdominal pain; Epigastric; Additional info: Epigastic pain TECHNIQUE: Axial computed tomography images of the chest without intravenous contrast. All CT scans at this facility use one or more dose reduction techniques, viz.: automated exposure control; ma/kV adjustment per patient size (including targeted exams where dose is matched to indication; i.e. head); or iterative reconstruction technique. Coronal and sagittal reformatted images were created and reviewed. COMPARISON: No relevant prior studies available. FINDINGS: Limitations: Lack of intravenous contrast. Motion artifact - mild. Lungs: Probable linear scarring RIGHT upper lobe. Minimal peripheral atelectasis/scarring. No consolidation. Pleural space: No pneumothorax. No significant effusion. Heart: Borderline cardiomegaly. No significant pericardial effusion. Coronary artery calcifications. Mediastinum: Small hiatal hernia. Bones/joints: Few healed rib fractures. Mild degenerative changes of spine. Soft tissues: Small breast calcifications. Vasculature: Nhgy-rh-fuqwvovt atherosclerotic disease of aorta. No aneurysm. Lymph nodes: No pathologically enlarged lymph nodes. IMPRESSION: 1.No acute findings. 2.Non-acute findings are described above. EXAM: CT Abdomen and Pelvis Without Intravenous Contrast CLINICAL HISTORY: 86 years old, female; Pain; Abdominal pain; Epigastric; Additional info: Epigastic pain TECHNIQUE: Axial computed tomography images of the abdomen and pelvis without intravenous contrast. All CT scans at this facility use one or more dose reduction techniques, viz.: automated exposure control; ma/kV adjustment per patient size (including targeted exams where dose is matched to indication; i.e. head); or iterative reconstruction technique. Coronal and sagittal reformatted images were created and reviewed. COMPARISON: No relevant prior studies available. FINDINGS: Limitations: Lack of intravenous contrast. ABDOMEN: Liver: Unremarkable. Gallbladder and bile ducts: Cholecystectomy. No ductal dilation. Pancreas: Unremarkable. No ductal dilation. Spleen: Few splenic calcifications. Adrenals: No mass. Kidneys and ureters: Few hypodense lesions within LEFT kidney, suboptimally evaluated due to motion. Few punctate vascular calcifications vs calculi within LEFT kidney. Mild pelvocaliectasis of both kidneys. Stomach and bowel: Few scattered diverticula within colon. No associated inflammatory stranding. Appendix: Normal caliber. No inflammation. PELVIS: Bladder: Distended bladder. No stones. Reproductive: Hysterectomy. ABDOMEN and PELVIS: Intraperitoneal space: No significant fluid collection. No free air. Bones/joints: Chronic compression deformity superior endplate L2 vertebral body. Mild degenerative changes of spine. Soft tissues: Tiny umbilical hernia containing fat. Small ventral hernia containing fat. Vasculature: Moderate atherosclerotic disease. No aneurysm. Lymph nodes: No pathologically enlarged lymph nodes. IMPRESSION: 1. Diverticulosis without definite CT evidence of diverticulitis. 2. Incidental/non-acute findings are described above.
[2017-03-19] MEDS ORDERED: Ciprofloxacin 400mg/200ml D5W 400 MG/200 ML BAG IVPB STA (23:01)
--- NOTE | 2017-03-19 23:43 | CP.PCM.HP ---
<Brian Griselda YOUNG - Last Filed: 03/20/17 00:29> History of Present Illness - History of Present Illness History of Present Illness: CC: Abdominal and chest pain Patient is a 86 year old female with PMHx significant for CAD, HTN, DM , gastritis, asthma, arthritis, COPD, anxiety and hx of abdominal hernia presents with complaints of abdominal pain and right-sided chest pain. Patient states she has had the pain for the past week. Patient states she has been constipated with small hard stools which is contributing to the abdominal pain. Patient was recently discharged after being treated for UTI and patient states she no longer has burning on urination. Patient also complains of cough that is non-productive and attributes it to her asthma. Patient denies nausea, vomiting, diarrhea. Patient complains of back pain and states her "kidneys hurt." Patient denies fevers and chills. Patient denies diaphoresis, palpitations, chest pressure. Patient states chest pain is worse when she pushes on it with her hand. PMHx- CAD, HTN, DM, gastritis, asthma, arthritis, COPD, anxiety PSHX- hysterectomy and oopherectomy, cataract surgery, Cardiac cath 02/2016 with 2x stents Fam Hx- Mother had asthma, heart disease, at age 92 Meds- Crestor 5mg po HS, Pepcid 20mg po daily, ASA 81mg po daily, Plavix 75mg po daily, Losartan 25mg PO qd, Furosemide 40mg PO qd, Meclizine 12.5mg PO BID, Esomeprazole 40mg PO qd. Social Hx- smoked 1ppd x 50 yrs, quit 20 yrs ago; social drinker in the past, denies current use. denies illicit drug use. Allergies- NKDA PMD- Dr. Gomez Present on Admission - Present on Admission Any Indicators Present on Admission: No Review of Systems - Constitutional Constitutional: absent: Chills, Fatigue, Fever - EENT Nose/Mouth/Throat: absent: Nasal Congestion, Sore Throat - Cardiovascular Cardiovascular: Chest Pain (right sided). absent: Diaphoresis, Dyspnea - Respiratory Respiratory: Cough, Wheezing, Pain with Coughing. absent: Excessive Mucous Production - Gastrointestinal Gastrointestinal: Abdominal Pain, Constipation. absent: Diarrhea, Nausea, Vomiting - Genitourinary Genitourinary: Difficulty Urinating. absent: Dysuria - Musculoskeletal Musculoskeletal: Back Pain - Integumentary Integumentary: absent: Rash - Neurological Neurological: absent: Weakness Past Patient History - Infectious Disease Hx of Infectious Diseases: None - Tetanus Immunizations Tetanus Immunization: Unknown - Past Medical History & Family History Past Medical History?: Yes - Past Social History Smoking Status: Never Smoked - CARDIAC Hx Hypercholesterolemia: Yes Hx Hypertension: Yes - PULMONARY Hx Asthma: Yes Hx Chronic Obstructive Pulmonary Disease (COPD): Yes - NEUROLOGICAL Hx Seizures: No - HEENT Hx HEENT Problems: Yes Hx Cataracts: Yes (right eye) Hx Glaucoma: Yes (left eye) Other/Comment: [place] LEFT EAR - RENAL Hx Chronic Kidney Disease: No - HEMATOLOGICAL/ONCOLOGICAL Hx Anemia: Yes - INTEGUMENTARY Hx Dermatological Problems: No - MUSCULOSKELETAL/RHEUMATOLOGICAL Hx Arthritis: Yes Hx Fractures: Yes (left wrist AND RT. HIP) Hx Osteoporosis: Yes Hx Rheumatoid Arthritis: Yes - GASTROINTESTINAL Hx Gastritis: Yes - GENITOURINARY/GYNECOLOGICAL Hx Sexually Transmitted Disorders: No - PSYCHIATRIC Hx Anxiety: Yes Hx Substance Use: No - SURGICAL HISTORY Hx Coronary Stent: Yes (cad cath 02/2016 with stent) - ANESTHESIA Hx Anesthesia: Yes Hx Anesthesia Reactions: No Hx Malignant Hyperthermia: No Meds Allergies/Adverse Reactions: Allergies Allergy/AdvReac Type Severity Reaction Status Date / Time No Known Allergies Allergy Verified 03/19/17 18:16 Physical Exam - Constitutional Appears: Non-toxic, No Acute Distress - Head Exam Head Exam: ATRAUMATIC, NORMOCEPHALIC - Eye Exam Eye Exam: EOMI - ENT Exam ENT Exam: Mucous Membranes Moist - Respiratory Exam Respiratory Exam: Wheezes, NORMAL BREATHING PATTERN. absent: Respiratory Distress - Cardiovascular Exam Cardiovascular Exam: +S1, +S2 - GI/Abdominal Exam GI & Abdominal Exam: Normal Bowel Sounds, Soft, Tenderness (epigastric) Additional comments: ventral hernia appreciated when patient coughs - Extremities Exam Extremities exam: Positive for: normal inspection. Negative for: pedal edema - Back Exam Back exam: CVA tenderness (L), CVA tenderness (R) - Neurological Exam Neurological exam: Alert - Psychiatric Exam Psychiatric exam: Normal Affect - Skin Skin Exam: Dry, Warm Results - Vital Signs Recent Vital Signs: Last Vital Signs Temp 98.8 F 03/19/17 18:13 Pulse 63 03/19/17 22:56 Resp 18 03/19/17 22:56 BP 159/67 H 03/19/17 22:56 Pulse Ox 97 03/19/17 23:27 - Labs Result Diagrams: 03/19/17 20:46 03/19/17 20:46 Assessment & Plan - Assessment and Plan (Free Text) Assessment: (1) Chest pain R/O ACS Assessment and Plan: First YADIRA negative, will trend x2 EKG with LBBB which is seen on prior EKGs f/u repeat EKG in AM Hx of coronary stenting in 2016 Cont ASA, Plavix and Crestor daily Heart Healthy diet Status: Chronic Priority: High (2) UTI (urinary tract infection) Assessment and Plan: UA consistent with UTI F/U repeat UC patient was recently discharged on cipro for UTI, urine culture from 03/12 resulted with E.coli resistant to cipro Received one dose of Rocephin in ED Rocephin daily until repeat UC results Continue to monitor Status: Acute (3) Renal insufficiency Assessment and Plan: BUN 53, Cr 1.9 per EMR documentation, patient's baseline creatinine appears to be around 1.5 since december 2016, prior to that time, creatinine closer to 1.0 in December, patient was worked up for ARF by Dr. Ford and patient's clinical picture was more consistent with prerenal azotemia will give patient NS and continue to monitor renal function will check renal US to rule out pyelo last renal US in 12/2016 showed multiple left renal cysts, non obstructing calculus b/l (4) Diabetes mellitus Assessment and Plan: ISS Low dose A1c 01/12/17 was 7.1 F/U accucheks Status: Chronic (5) Hypertension Assessment and Plan: Losartan 25 mg PO daily Cont to monitor Status: Chronic Priority: Medium (6) Vertigo Assessment and Plan: Meclizine 12.5mg PO BID Fall risk precautions Status: Chronic (7) Arthritis Assessment and Plan: PT eval and treat Hx of frequent falls in the past (not on this admission) Status: Chronic (8) Cough Assessment and Plan: albuterol inhaler 1 puff q4h as needed for shortness of breath tessalon ben (9) Prophylactic measure Assessment and Plan: Heparin SC Q12 Pepcid 20 mg PO daily Fall risk precautions PT eval Plan D/W Dr. Vidal <Jose Vidal - Last Filed: 03/20/17 06:37> Results - Vital Signs Recent Vital Signs: Last Vital Signs Temp 98.8 F 03/19/17 18:13 Pulse 60 03/20/17 02:35 Resp 12 03/20/17 02:35 BP 124/78 03/20/17 02:35 Pulse Ox 96 03/20/17 02:35 - Labs Result Diagrams: 03/19/17 20:46 03/19/17 20:46 Labs: Laboratory Results - last 24 hr 03/20/17 03/20/17 03/20/17 01:56 02:40 02:40 POC Glucose (mg/dL) 204 H Hemoglobin A1c 8.0 H Total Creatine Kinase CK-MB (Mass) Troponin I, Quant Thyroxine (T4) 6.57 TSH 3rd Generation 0.70 03/20/17 02:40 POC Glucose (mg/dL) Hemoglobin A1c Total Creatine Kinase 37 CK-MB (Mass) 0.52 Troponin I, Quant 0.0210 Thyroxine (T4) TSH 3rd Generation Assessment & Plan - Date & Time Date: 03/20/17 (I have seen and examined the patient. I agree with the findings and plan of care as documented by Dr. Bernard. Patient with chest pain. Continue aspirin and Plavix. Statin. ROMIx3 with EKG. Also with UTI and renal insufficiency. IVF. Rocephin. Check urine and blood cultures. Renal ultrasound. Monitor for acute changes.) Time: 06:36 Attending/Attestation - Attestation I have personally seen and examined this patient.: Yes I have fully participated in the care of the patient.: Yes I have reviewed all pertinent clinical information: Yes
[2017-03-20] MEDS ORDERED: Ciprofloxacin 400mg/200ml D5W 400 MG/200 ML BAG IVPB ONE (00:10)
[2017-03-20] MEDS ORDERED: Albuterol HFA 90 mcg/actuation (8 g) INH PRN (00:45)
[2017-03-20] MEDS: Sodium Chloride 0.9% 1,000 ML IV SCH ×2 (01:53→16:14)
[2017-03-20 03:18] LABS: T4 6.57 ug/dL (5.5-11.0)
[2017-03-20 03:32] LABS: THYROID STIMULATING HORMONE 0.7 mIU/L (0.46-4.68)
[2017-03-20] MEDS ORDERED: (Novolin R) Insulin Human Regular 100 units/ml vial SC SCH (07:30)
--- NOTE | 2017-03-20 07:33 | CP.PCM.PN ---
Addendum entered and electronically signed by Sydni Fierro DO 03/20/17 14:33 : Urinary retention noted. Bladder scan performed in the ED, retained 500cc. Straight cath was performed. Patient still distended after exam. Order placed to have lema inserted, and flomax started. Urology consult for Dr. Bessy Cao. Original Note: <Sydni Fierro - Last Filed: 03/20/17 12:54> Subjective - Date & Time of Evaluation Date of Evaluation: 03/20/17 Time of Evaluation: 07:00 - Subjective Subjective: Medicine Note for Dr. Waldrop Patient was seen and examined at bedside. Patient reports dysuria, abdominal pain, suprapubic pain, and a sensation of fullness. Denied fever, chills, headache, SOB, chest pain, abdominal pain, n/v/d/c, or hematuria. Objective - Vital Signs/Intake and Output Vital Signs (last 24 hours): Temp Pulse Resp BP Pulse Ox 98.8 F 60 20 121/48 L 96 03/19/17 18:13 03/20/17 05:52 03/20/17 05:52 03/20/17 05:52 03/20/17 02:35 - Medications Medications: Current Medications Albuterol (Ventolin Hfa 90 Mcg/Actuation (8 G)) 1 puff INH RQ4 PRN PRN Reason: Shortness of Breath Alprazolam (Xanax) 0.5 mg PO HS [facility] Aspirin (Ecotrin) 81 mg PO DAILY [facility] Benzonatate (Tessalon Perles) 100 mg PO TID PRN PRN Reason: Cough Clopidogrel Bisulfate (Plavix) 75 mg PO DAILY [facility] Docusate Sodium (Colace) 100 mg PO BID [facility] Last Admin: 03/20/17 01:52 Dose: 100 mg Famotidine (Pepcid) 20 mg PO HS [facility] Furosemide (Lasix) 40 mg PO DAILY [facility] Heparin Sodium (Porcine) (Heparin) 5,000 units SC Q12 [facility] Last Admin: 03/20/17 01:52 Dose: 5,000 units Ceftriaxone Sodium 1 gm/ (Sodium Chloride) 100 mls @ 100 mls/hr IVPB DAILY [facility] Sodium Chloride (Sodium Chloride 0.9%) 1,000 mls @ 75 mls/hr IV .[id number] [facility] Last Admin: 03/20/17 01:53 Dose: 75 mls/hr Insulin Human Regular (Novolin R) 0 unit SC ACHS [facility] PRN Reason: Protocol Losartan Potassium (Cozaar) 25 mg PO DAILY [facility] Meclizine HCl (Antivert) 12.5 mg PO BID [facility] Rosuvastatin Calcium (Crestor) 5 mg PO HS [facility] - Constitutional Appears: No Acute Distress - Head Exam Head Exam: NORMAL INSPECTION, NORMOCEPHALIC - Eye Exam Eye Exam: EOMI, Normal appearance, PERRL Pupil Exam: NORMAL ACCOMODATION - ENT Exam ENT Exam: Mucous Membranes Dry - Respiratory Exam Respiratory Exam: Clear to Ausculation Bilateral, NORMAL BREATHING PATTERN. absent: Decreased Breath Sounds, Wheezes - Cardiovascular Exam Cardiovascular Exam: +S1, +S2 - GI/Abdominal Exam GI & Abdominal Exam: Soft, Tenderness (epigastric ), Normal Bowel Sounds Additional comments: ventral hernia appreciated when patient coughs - Extremities Exam Extremities Exam: Normal Inspection. absent: Pedal Edema, Tenderness - Neurological Exam Neurological Exam: Alert, Awake, Oriented x3 - Skin Skin Exam: Dry, Intact, Normal Color, Warm Assessment and Plan - Assessment and Plan (Free Text) Plan: UTI (urinary tract infection) Assessment and Plan: UA consistent with UTI patient was recently discharged on cipro for UTI, urine culture from 03/12 resulted with E.coli resistant to cipro Received one dose of Rocephin in ED Rocephin daily until repeat UC results F/U repeat UC Status: Acute Renal insufficiency Assessment and Plan: BUN 53, Cr 1.9 per EMR documentation, patient's baseline creatinine appears to be around 1.5 since december 2016, prior to that time, creatinine closer to 1.0 in December, patient was worked up for ARF by Dr. Ford and patient's clinical picture was more consistent with prerenal azotemia will give patient NS and continue to monitor renal function CT AB & Pelvis 03/19/17 - Diverticulosis without evidence of diverticulitis. Few hypodense lesions within left kidney. few punctate vascular calcifications vs calculi within left kidney. Mild pelvocaliectasis of both kidneys. Tiny umbilical hernia containing fat. Small ventral hernia containing fat. Last renal US in 12/2016 showed multiple left renal cysts, non obstructing calculus b/l Repeat renal US 03/20/17: Renal US- bilateral renal cysts more on L> R kidney. Right hydronephrosis - mostly right extra renal pelviectasis - this is noted on CT on 03/19/17. No findings suggestive of pyelonephritis. Chest pain R/O ACS Assessment and Plan: YADIRA negative x3 EKG with LBBB which is seen on prior EKGs Hx of coronary stenting in 2016 Cont ASA, Plavix and Crestor daily Heart Healthy diet Status: Chronic Priority: High Diabetes mellitus Assessment and Plan: Accuchecks ISS - medium A1c 01/12/17 was 7.1 A1C 03/20/17: 8.0 Status: Chronic Hypertension Assessment and Plan: Losartan 25 mg PO daily Cont to monitor Status: Chronic Vertigo Assessment and Plan: Meclizine 12.5mg PO BID Fall risk precautions Status: Chronic Arthritis Assessment and Plan: PT eval and treat Hx of frequent falls in the past (not on this admission) Status: Chronic Cough Assessment and Plan: albuterol inhaler 1 puff q4h as needed for shortness of breath tessalon perles Prophylactic measure Assessment and Plan: Heparin SC Q12 Pepcid 20 mg PO daily Fall risk precautions PT eval DW Sri Kumar, DO PGY-1 <Yasmani Waldrop - Last Filed: 03/20/17 17:26> Objective - Vital Signs/Intake and Output Vital Signs (last 24 hours): Temp Pulse Resp BP Pulse Ox 98.6 F 66 20 136/63 97 03/20/17 16:02 03/20/17 16:02 03/20/17 16:02 03/20/17 16:02 03/20/17 16:02 Intake and Output: 03/20/17 03/20/17 06:59 18:59 Output Total 600 Balance -600 - Medications Medications: Current Medications Albuterol (Ventolin Hfa 90 Mcg/Actuation (8 G)) 1 puff INH RQ4 PRN PRN Reason: Shortness of Breath Alprazolam (Xanax) 0.5 mg PO HS [facility] Aspirin (Ecotrin) 81 mg PO DAILY [facility] Last Admin: 03/20/17 10:48 Dose: 81 mg Benzonatate (Tessalon Perles) 100 mg PO TID PRN PRN Reason: Cough Clopidogrel Bisulfate (Plavix) 75 mg PO DAILY [facility] Last Admin: 03/20/17 10:49 Dose: 75 mg Docusate Sodium (Colace) 100 mg PO BID [facility] Last Admin: 03/20/17 10:47 Dose: 100 mg Famotidine (Pepcid) 20 mg PO HS [facility] Furosemide (Lasix) 40 mg PO DAILY [facility] Last Admin: 03/20/17 10:49 Dose: 40 mg Heparin Sodium (Porcine) (Heparin) 5,000 units SC Q12 [facility] Last Admin: 03/20/17 10:48 Dose: 5,000 units Ceftriaxone Sodium 1 gm/ (Sodium Chloride) 100 mls @ 100 mls/hr IVPB DAILY [facility] Last Admin: 03/20/17 11:40 Dose: 100 mls/hr Sodium Chloride (Sodium Chloride 0.9%) 1,000 mls @ 75 mls/hr IV .[id number] [facility] Last Admin: 03/20/17 16:14 Dose: 75 mls/hr Insulin Human Regular (Novolin R) 0 unit SC ACHS [facility] PRN Reason: Protocol Last Admin: 03/20/17 13:20 Dose: 3 unit Losartan Potassium (Cozaar) 25 mg PO DAILY [facility] Last Admin: 03/20/17 10:48 Dose: 25 mg Meclizine HCl (Antivert) 12.5 mg PO BID [facility] Last Admin: 03/20/17 10:48 Dose: 12.5 mg Promethazine HCl (Phenergan Syrup) 12.5 mg PO Q6 PRN PRN Reason: Cough Rosuvastatin Calcium (Crestor) 5 mg PO HS [facility] Tamsulosin HCl (Flomax) 0.4 mg PO DAILY [facility] - Labs Labs: 03/20/17 10:57 03/20/17 10:55 Attending/Attestation - Attestation I have personally seen and examined this patient.: Yes I have fully participated in the care of the patient.: Yes I have reviewed all pertinent clinical information, including history, physical exam and plan: Yes Notes (Text): 03/20/17 17:25 Patient was seen and examined at bedside with the resident Complaining of abdominal pain Patient possibly has urinary retention Patient to get Lema's catheter and we will start Flomax We will request urology evaluation Continue Rocephin for UTI I discussed the plan of care with the resident and agree with the history Assessment/plan documented.
[2017-03-20] MEDS: (Novolin R) Insulin Human Regular 100 units/ml vial SC SCH ×4 (09:06→21:50)
[2017-03-20] MEDS ORDERED: (Novolin R) Insulin Human Regular 100 units/ml vial ONE ×2 (09:07→13:26)
[2017-03-20] MEDS ORDERED: Promethazine 12.5 mg/10 ml Syrup PO PRN (09:40)
[2017-03-20 11:03] LABS: BASO # 0.1 K/uL (0.0-0.2); EOS # 0.2 K/uL (0.0-0.7); EOS % 4.7 % (0.0-4.0); HEMATOCRIT 27.4 % (34.0-47.0); LYMPH # 1.8 K/uL (1.0-4.3); LYMPH % 35.3 % (20.0-40.0); MEAN CELL VOLUME 86.5 fL (81.0-99.0); MEAN CORPUSCULAR HEMOGLOBIN 28.5 pg (27.0-31.0); MEAN PLATELET VOLUME 8.8 fL (7.2-11.7); MONO # 0.7 K/uL (0.0-0.8); MONO % 14.7 % (0.0-10.0); RED CELL DISTRIBUTION WIDTH 14.1 % (11.5-14.5)
--- NOTE | 2017-03-20 11:12 | RAD ---
HISTORY: chest pain from epigastric area COMPARISON: 02/15/2017. TECHNIQUE: Chest PA and lateral FINDINGS: LUNGS: Right apical scarring. Stable hyperinflation. PLEURA: No significant pleural effusion identified. No pneumothorax apparent. CARDIOVASCULAR: No radiographic findings to suggest acute or significant cardiovascular disease. OSSEOUS STRUCTURES: No significant abnormalities. VISUALIZED UPPER ABDOMEN: Normal. OTHER FINDINGS: None. IMPRESSION: No active disease. No significant interval change compared to the prior examination(s). No preliminary report provided by emergency department personnel.
[2017-03-20 11:24] LABS: ALB/GLOB RATIO 1.4 (1.0-2.1); BILIRUBIN,TOTAL 0.2 mg/dL (0.2-1.3); CALCIUM 8.8 mg/dl (8.6-10.4); POTASSIUM 4.6 mmol/L (3.6-5.2); TOTAL PROTEIN 6.2 g/dL (6.3-8.3)
--- NOTE | 2017-03-20 11:42 | US ---
PROCEDURE: Ultrasound of the Kidneys HISTORY: failed outpt tx for UTI, b/l CVA pain, r/o pyelo COMPARISON: CT chest, abdomen and pelvis 03/19/2017. TECHNIQUE: Sonogram of the kidneys. FINDINGS: RIGHT KIDNEY: Measures: 10.9 x 4.4 x 4.3 cm. Normal in size, contour and echogenicity. There may be some trace cortical thinning at the upper pole the right kidney - this is less suggested on the recent CT and may technical on this ultrasound No stone, or suspect solid mass lesion noted . An upper pole appearing cyst - 5 mm around a diameter is noted. Mild right hydronephrosis -most of the dilatation is extra renal pelviectasis (On CT some kinking in the right abort ureteropelvic junction suggested. A milder relative right functional ureteropelvic junctional obstruction is not excluded. Some coursing extrinsic vessels can contribute to this appearance as well . Dilatations greatest in the extrarenal pelvis No discrete abscess suggested LEFT KIDNEY: Measures: 10.7 x 5.1 x 4.9 cm. Multiple left renal cysts are present. In the midpole, 2 cysts present: 2.5 x 1.6 x 2.1 and 2.1 x 1.7 x 2.1 cm. A lower pole benign-appearing cysts is also suggested measuring 2.0 x 1.8 x 2.0 cm No stone, solid mass lesion or hydronephrosis visualized. OTHER FINDINGS: IMPRESSION: Bilateral renal cysts -more numerous in the left kidney. . Findings do not suggest or exclude pyelonephritis. . No abscess suggested No gross suggestion of pyonephrosis. Overall vascularity appears symmetrical and within normal limits. Right hydronephrosis -mostly right extra renal pelviectasis - this finding is noted on the prior 03/19/2017 CT study
--- NOTE | 2017-03-20 17:26 | PCM.URO ---
Urology Progress Note - Objective Lab Results Last 24 Hours: Laboratory Results - last 24 hr 03/20/17 03/20/17 03/20/17 01:56 02:40 02:40 WBC RBC Hgb Hct MCV MCH MCHC RDW Plt Count MPV Neut % (Auto) Lymph % (Auto) Harper % (Auto) Eos % (Auto) Baso % (Auto) Neut # Lymph # Harper # Eos # Baso # Sodium Potassium Chloride Carbon Dioxide Anion Gap BUN Creatinine Est GFR ( Amer) Est GFR (Non-Af Amer) POC Glucose (mg/dL) 204 H Random Glucose Hemoglobin A1c 8.0 H Calcium Total Bilirubin AST ALT Alkaline Phosphatase Total Creatine Kinase CK-MB (Mass) Troponin I, Quant Total Protein Albumin Globulin Albumin/Globulin Ratio Thyroxine (T4) 6.57 TSH 3rd Generation 0.70 03/20/17 03/20/17 03/20/17 02:40 08:50 09:04 WBC RBC Hgb Hct MCV MCH MCHC RDW Plt Count MPV Neut % (Auto) Lymph % (Auto) Harper % (Auto) Eos % (Auto) Baso % (Auto) Neut # Lymph # Harper # Eos # Baso # Sodium Potassium Chloride Carbon Dioxide Anion Gap BUN Creatinine Est GFR ( Amer) Est GFR (Non-Af Amer) POC Glucose (mg/dL) 200 H Random Glucose Hemoglobin A1c Calcium Total Bilirubin AST ALT Alkaline Phosphatase Total Creatine Kinase 37 36 CK-MB (Mass) 0.52 0.67 Troponin I, Quant 0.0210 0.0310 Total Protein Albumin Globulin Albumin/Globulin Ratio Thyroxine (T4) TSH 3rd Generation 03/20/17 03/20/17 03/20/17 10:55 10:57 12:39 WBC 5.0 RBC 3.17 L Hgb 9.0 L Hct 27.4 L MCV 86.5 MCH 28.5 MCHC 33.0 RDW 14.1 Plt Count 199 MPV 8.8 Neut % (Auto) 44.3 L Lymph % (Auto) 35.3 Harper % (Auto) 14.7 H Eos % (Auto) 4.7 H Baso % (Auto) 1.0 Neut # 2.2 Lymph # 1.8 Harper # 0.7 Eos # 0.2 Baso # 0.1 Sodium 140 Potassium 4.6 Chloride 102 Carbon Dioxide 29 Anion Gap 13 BUN 44 H Creatinine 1.7 H Est GFR ( Amer) 34 Est GFR (Non-Af Amer) 28 POC Glucose (mg/dL) 219 H Random Glucose 135 H Hemoglobin A1c Calcium 8.8 Total Bilirubin 0.2 AST 25 ALT 18 Alkaline Phosphatase 51 Total Creatine Kinase CK-MB (Mass) Troponin I, Quant Total Protein 6.2 L Albumin 3.5 Globulin 2.6 Albumin/Globulin Ratio 1.4 Thyroxine (T4) TSH 3rd Generation 03/20/17 16:31 WBC RBC Hgb Hct MCV MCH MCHC RDW Plt Count MPV Neut % (Auto) Lymph % (Auto) Harper % (Auto) Eos % (Auto) Baso % (Auto) Neut # Lymph # Harper # Eos # Baso # Sodium Potassium Chloride Carbon Dioxide Anion Gap BUN Creatinine Est GFR ( Amer) Est GFR (Non-Af Amer) POC Glucose (mg/dL) 270 H Random Glucose Hemoglobin A1c Calcium Total Bilirubin AST ALT Alkaline Phosphatase Total Creatine Kinase CK-MB (Mass) Troponin I, Quant Total Protein Albumin Globulin Albumin/Globulin Ratio Thyroxine (T4) TSH 3rd Generation Intake & Output: Intake & Output 03/19/17 03/20/17 03/20/17 18:59 06:59 18:59 Output Total 600 Balance -600 Output: Urine 600 Vital Signs: Vital Signs - 24 hr 03/19/17 03/20/17 03/20/17 23:27 02:35 05:52 Temperature Pulse Rate 60 60 Respiratory 12 20 Rate Blood Pressure 124/78 121/48 L O2 Sat by Pulse 97 96 Oximetry 03/20/17 03/20/17 03/20/17 07:25 10:49 13:00 Temperature 98.7 F 98.8 F Pulse Rate 69 64 81 Respiratory 16 20 17 Rate Blood Pressure 130/48 L 134/63 143/75 O2 Sat by Pulse 96 96 97 Oximetry 03/20/17 03/20/17 03/20/17 14:45 16:00 16:02 Temperature 98.6 F 98.6 F Pulse Rate 72 61 66 Respiratory 20 20 Rate Blood Pressure 136/63 136/63 O2 Sat by Pulse 96 97 Oximetry
--- NOTE | 2017-03-20 18:26 | CARD ---
APPROVED REPORT EKG Measurement Heart [id number] <Conclusion> Normal sinus rhythm Left bundle branch block Abnormal ECG
[2017-03-21] MEDS ORDERED: Alum-Mag Hydrox-Simethicone Susp (30 mL) PO ONE (02:57)
[2017-03-21] MEDS: Sodium Chloride 0.9% 1,000 ML IV SCH ×2 (06:21→17:16)
--- NOTE | 2017-03-21 06:59 | CP.PCM.PN ---
<Sydni Fierro - Last Filed: 03/21/17 12:14> Subjective - Date & Time of Evaluation Date of Evaluation: 03/21/17 Time of Evaluation: 07:00 - Subjective Subjective: Medicine Note for Dr. Waldrop Patient was seen and examined at bedside. Patient continues to have abdominal pain, suprapubic pain, and a sensation of fullness. Patient refused lema insertion last night. Pending Urology reccs. Denied fever, chills, headache, SOB , chest pain, abdominal pain, n/v/d/c, dysuria, or hematuria. Objective - Vital Signs/Intake and Output Vital Signs (last 24 hours): Temp Pulse Resp BP Pulse Ox 97.9 F 68 20 134/73 95 03/20/17 23:10 03/21/17 03:58 03/20/17 23:10 03/20/17 23:10 03/20/17 23:10 Intake and Output: 03/20/17 03/21/17 18:59 06:59 Intake Total 980 Output Total 600 Balance -600 980 - Medications Medications: Current Medications Albuterol (Ventolin Hfa 90 Mcg/Actuation (8 G)) 1 puff INH RQ4 PRN PRN Reason: Shortness of Breath Alprazolam (Xanax) 0.5 mg PO HS [facility] Last Admin: 03/20/17 21:49 Dose: 0.5 mg Aspirin (Ecotrin) 81 mg PO DAILY [facility] Last Admin: 03/20/17 10:48 Dose: 81 mg Benzonatate (Tessalon Perles) 100 mg PO TID PRN PRN Reason: Cough Clopidogrel Bisulfate (Plavix) 75 mg PO DAILY [facility] Last Admin: 03/20/17 10:49 Dose: 75 mg Docusate Sodium (Colace) 100 mg PO BID [facility] Last Admin: 03/20/17 18:16 Dose: 100 mg Famotidine (Pepcid) 20 mg PO HS [facility] Last Admin: 03/20/17 21:49 Dose: 20 mg Furosemide (Lasix) 40 mg PO DAILY [facility] Last Admin: 03/20/17 10:49 Dose: 40 mg Heparin Sodium (Porcine) (Heparin) 5,000 units SC Q12 [facility] Last Admin: 03/20/17 21:49 Dose: 5,000 units Ceftriaxone Sodium 1 gm/ (Sodium Chloride) 100 mls @ 100 mls/hr IVPB DAILY [facility] Last Admin: 03/20/17 11:40 Dose: 100 mls/hr Sodium Chloride (Sodium Chloride 0.9%) 1,000 mls @ 75 mls/hr IV .[id number] [facility] Last Admin: 03/21/17 06:21 Dose: 75 mls/hr Insulin Human Regular (Novolin R) 0 unit SC ACHS [facility] PRN Reason: Protocol Last Admin: 03/20/17 21:50 Dose: Not Given Losartan Potassium (Cozaar) 25 mg PO DAILY [facility] Last Admin: 03/20/17 10:48 Dose: 25 mg Meclizine HCl (Antivert) 12.5 mg PO BID [facility] Last Admin: 03/20/17 18:17 Dose: 12.5 mg Promethazine HCl (Phenergan Syrup) 12.5 mg PO Q6 PRN PRN Reason: Cough Rosuvastatin Calcium (Crestor) 5 mg PO HS [facility] Last Admin: 03/20/17 21:49 Dose: 5 mg Tamsulosin HCl (Flomax) 0.4 mg PO DAILY [facility] Last Admin: 03/20/17 18:16 Dose: 0.4 mg - Labs Labs: 03/20/17 10:57 03/20/17 10:55 - Constitutional Appears: No Acute Distress - Head Exam Head Exam: NORMAL INSPECTION, NORMOCEPHALIC - Eye Exam Eye Exam: EOMI, Normal appearance, PERRL Pupil Exam: NORMAL ACCOMODATION - ENT Exam ENT Exam: Mucous Membranes Moist - Respiratory Exam Respiratory Exam: Clear to Ausculation Bilateral, NORMAL BREATHING PATTERN - Cardiovascular Exam Cardiovascular Exam: REGULAR RHYTHM, RRR, +S1, +S2 - GI/Abdominal Exam GI & Abdominal Exam: Distended, Soft, Tenderness (Suprapubic TTP), Normal Bowel Sounds - Extremities Exam Extremities Exam: Normal Inspection. absent: Pedal Edema, Tenderness - Neurological Exam Neurological Exam: Alert, Awake, Oriented x3 - Skin Skin Exam: Dry, Intact, Normal Color, Warm Assessment and Plan - Assessment and Plan (Free Text) Plan: UTI (urinary tract infection) Assessment and Plan: UA consistent with UTI patient was recently discharged on cipro for UTI, urine culture from 03/12 resulted with E.coli resistant to cipro Received one dose of Rocephin in ED Rocephin daily until repeat UC results F/U repeat UC Status: Acute Hx of Constipation Assessment and Plan: Abdominal Xray ordered Given one dose Miralax Colace 100mg PO BID Urinary Retention Assessment and Plan: Renal US- bilateral renal cysts more on L> R kidney. Right hydronephrosis - mostly right extra renal pelviectasis - this is noted on CT on 03/19/17. No findings suggestive of pyelonephritis. Bladder scan showed retention of 500cc post voiding. Insertion of lema catheter ordered. Patient refused, order for straight catherization when bladder scan >200cc. Pending Urology reccs. Urology consulted- Dr. Bessy Cao - help appreciated - spoke to Dr. Emi Cao , recommend lema insertion. Will encourage lema insertion. Repeat bladder scans have been < 100cc Renal insufficiency Assessment and Plan: per EMR documentation, patient's baseline creatinine appears to be around 1.5 since december 2016, prior to that time, creatinine closer to 1.0 in December, patient was worked up for ARF by Dr. Ford and patient's clinical picture was more consistent with prerenal azotemia will give patient NS and continue to monitor renal function CT AB & Pelvis 03/19/17 - Diverticulosis without evidence of diverticulitis. Few hypodense lesions within left kidney. few punctate vascular calcifications vs calculi within left kidney. Mild pelvocaliectasis of both kidneys. Tiny umbilical hernia containing fat. Small ventral hernia containing fat. Last renal US in 12/2016 showed multiple left renal cysts, non obstructing calculus b/l Repeat renal US 03/20/17: Renal US- bilateral renal cysts more on L> R kidney. Right hydronephrosis - mostly right extra renal pelviectasis - this is noted on CT on 03/19/17. No findings suggestive of pyelonephritis. Chest pain R/O ACS Assessment and Plan: YADIRA negative x3 EKG with LBBB which is seen on prior EKGs Hx of coronary stenting in 2016 Cont ASA, Plavix and Crestor daily Heart Healthy diet Status: Chronic Diabetes mellitus Assessment and Plan: Accuchecks ISS - medium A1c 01/12/17 was 7.1 A1C 03/20/17: 8.0 Status: Chronic Hypertension Assessment and Plan: Losartan 25 mg PO daily Cont to monitor Status: Chronic Vertigo Assessment and Plan: Meclizine 12.5mg PO BID Fall risk precautions Status: Chronic Arthritis Assessment and Plan: PT eval and treat Hx of frequent falls in the past (not on this admission) Status: Chronic Cough Assessment and Plan: albuterol inhaler 1 puff q4h as needed for shortness of breath tessalon perles Prophylactic measure Assessment and Plan: Heparin SC Q12 Pepcid 20 mg PO daily Fall risk precautions PT eval DW Sri Kumar, PGY-1 <Yasmani Waldrop M - Last Filed: 03/21/17 14:54> Objective - Vital Signs/Intake and Output Vital Signs (last 24 hours): Temp Pulse Resp BP Pulse Ox 98.2 F 73 18 138/78 99 03/21/17 09:28 03/21/17 09:28 03/21/17 09:28 03/21/17 09:28 03/21/17 09:28 Intake and Output: 03/21/17 03/21/17 06:59 18:59 Intake Total 980 Balance 980 - Medications Medications: Current Medications Albuterol (Ventolin Hfa 90 Mcg/Actuation (8 G)) 1 puff INH RQ4 PRN PRN Reason: Shortness of Breath Alprazolam (Xanax) 0.5 mg PO HS [facility] Last Admin: 03/20/17 21:49 Dose: 0.5 mg Aspirin (Ecotrin) 81 mg PO DAILY [facility] Last Admin: 03/21/17 09:19 Dose: 81 mg Benzonatate (Tessalon Perles) 100 mg PO TID PRN PRN Reason: Cough Clopidogrel Bisulfate (Plavix) 75 mg PO DAILY [facility] Last Admin: 03/21/17 09:18 Dose: 75 mg Docusate Sodium (Colace) 100 mg PO BID [facility] Last Admin: 03/21/17 09:18 Dose: 100 mg Famotidine (Pepcid) 20 mg PO HS [facility] Last Admin: 03/20/17 21:49 Dose: 20 mg Furosemide (Lasix) 40 mg PO DAILY [facility] Last Admin: 03/21/17 09:19 Dose: 40 mg Heparin Sodium (Porcine) (Heparin) 5,000 units SC Q12 [facility] Last Admin: 03/21/17 09:21 Dose: 5,000 units Ceftriaxone Sodium 1 gm/ (Sodium Chloride) 100 mls @ 100 mls/hr IVPB DAILY [facility] Last Admin: 03/21/17 10:30 Dose: 100 mls/hr Sodium Chloride (Sodium Chloride 0.9%) 1,000 mls @ 75 mls/hr IV .[id number] [facility] Last Admin: 03/21/17 06:21 Dose: 75 mls/hr Insulin Human Regular (Novolin R) 0 unit SC ACHS [facility] PRN Reason: Protocol Last Admin: 03/21/17 12:41 Dose: 3 unit Losartan Potassium (Cozaar) 25 mg PO DAILY [facility] Last Admin: 03/21/17 09:19 Dose: 25 mg Meclizine HCl (Antivert) 12.5 mg PO BID [facility] Last Admin: 03/21/17 09:18 Dose: 12.5 mg Promethazine HCl (Phenergan Syrup) 12.5 mg PO Q6 PRN PRN Reason: Cough Rosuvastatin Calcium (Crestor) 5 mg PO HS [facility] Last Admin: 03/20/17 21:49 Dose: 5 mg Tamsulosin HCl (Flomax) 0.4 mg PO DAILY [facility] Last Admin: 03/20/17 18:16 Dose: 0.4 mg - Labs Labs: 03/21/17 11:21 03/21/17 11:21 Attending/Attestation - Attestation I have personally seen and examined this patient.: Yes I have fully participated in the care of the patient.: Yes I have reviewed all pertinent clinical information, including history, physical exam and plan: Yes Notes (Text): 03/21/17 14:53 Patient was seen and examined at bedside with the resident Complains of for epigastric pain Patient also complains of constipation We will obtain an x-ray of the abdomen to evaluate for retained stools Continue current management for UTI Patient to has been voiding freely now No need for Lema's catheter placement at this time Discussed the plan of care with the resident and agree with the history and physical and assessment/plan recommended by the resident.
[2017-03-21] MEDS: (Novolin R) Insulin Human Regular 100 units/ml vial SC SCH ×4 (09:00→23:21)
[2017-03-21] MEDS ORDERED: POLYETHYLENE GLYCOL 3350 17 GM/Dose PACKET PO ONE ×2 (11:00→12:58)
[2017-03-21 11:34] LABS: EOS # 0.3 K/uL (0.0-0.7); HEMATOCRIT 27.9 % (34.0-47.0); LYMPH # 1.3 K/uL (1.0-4.3); LYMPH % 27.2 % (20.0-40.0); MEAN CELL VOLUME 86.1 fL (81.0-99.0); MEAN CORPUSCULAR HEMOGLOBIN 28.2 pg (27.0-31.0); MEAN CORPUSCULAR HGB CONC 32.7 g/dL (33.0-37.0); MEAN PLATELET VOLUME 9.2 fL (7.2-11.7); MONO # 0.6 K/uL (0.0-0.8); WHITE BLOOD COUNT 4.7 K/uL (4.8-10.8)
[2017-03-21 11:40] LABS: POTASSIUM 4.6 mmol/L (3.6-5.2)
[2017-03-21 11:43] LABS: ALB/GLOB RATIO 1.2 (1.0-2.1); BILIRUBIN,TOTAL 0.4 mg/dL (0.2-1.3); CALCIUM 9.1 mg/dl (8.6-10.4); TOTAL PROTEIN 6.5 g/dL (6.3-8.3)
--- NOTE | 2017-03-21 12:37 | PCM.URO ---
Urology Progress Note - General General: No Complaints, Tolerating Diet - Subjective Abdominal Pain: No Flank Pain: No Nausea: No Vomiting: No Hematuria: No Weak Stream: Yes Chest Pain: No Fever & Chills: No - Objective Lab Results Last 24 Hours: Laboratory Results - last 24 hr 03/20/17 03/20/17 03/20/17 12:39 16:31 21:30 WBC RBC Hgb Hct MCV MCH MCHC RDW Plt Count MPV Neut % (Auto) Lymph % (Auto) Shelby % (Auto) Eos % (Auto) Baso % (Auto) Neut # Lymph # Shelby # Eos # Baso # Sodium Potassium Chloride Carbon Dioxide Anion Gap BUN Creatinine Est GFR ( Amer) Est GFR (Non-Af Amer) POC Glucose (mg/dL) 219 H 270 H 242 H Random Glucose Calcium Total Bilirubin AST ALT Alkaline Phosphatase Total Protein Albumin Globulin Albumin/Globulin Ratio 03/21/17 03/21/17 03/21/17 06:01 11:21 11:21 WBC 4.7 L RBC 3.24 L Hgb 9.1 L Hct 27.9 L MCV 86.1 MCH 28.2 MCHC 32.7 L RDW 14.0 Plt Count 216 MPV 9.2 Neut % (Auto) 51.8 Lymph % (Auto) 27.2 Shelby % (Auto) 13.0 H Eos % (Auto) 7.0 H Baso % (Auto) 1.0 Neut # 2.4 Lymph # 1.3 Shelby # 0.6 Eos # 0.3 Baso # 0.0 Sodium 140 Potassium 4.6 Chloride 101 Carbon Dioxide 29 Anion Gap 15 BUN 34 H Creatinine 1.3 H Est GFR ( Amer) 47 Est GFR (Non-Af Amer) 39 POC Glucose (mg/dL) 227 H Random Glucose 205 H Calcium 9.1 Total Bilirubin 0.4 AST 19 ALT 19 Alkaline Phosphatase 57 Total Protein 6.5 Albumin 3.6 Globulin 2.9 Albumin/Globulin Ratio 1.2 Intake & Output: Intake & Output 03/20/17 03/21/17 03/21/17 18:59 06:59 18:59 Intake Total 980 Output Total 600 Balance -600 980 Intake: Intake, IV Amount 500 Right Thumb 500 Oral 480 Output: Urine 600 Other: # Voids Urine, Voided 3 # Bowel Movements 0 Vital Signs: Vital Signs - 24 hr 03/20/17 03/20/17 03/20/17 13:00 14:45 16:00 Temperature 98.8 F 98.6 F Pulse Rate 81 72 61 Respiratory 17 20 Rate Blood Pressure 143/75 136/63 O2 Sat by Pulse 97 96 Oximetry 03/20/17 03/20/17 03/20/17 16:02 23:10 23:40 Temperature 98.6 F 97.9 F Pulse Rate 66 76 74 Respiratory 20 20 Rate Blood Pressure 136/63 134/73 O2 Sat by Pulse 97 95 Oximetry 03/21/17 03/21/17 03/21/17 03:58 09:19 09:28 Temperature 98.2 F Pulse Rate 68 73 Respiratory 18 Rate Blood Pressure 115/62 138/78 O2 Sat by Pulse 99 Oximetry - Physical Exam Abdominal Exam: Soft, Non-Tender, Non-Distended Back: No CVA Tenderness Urine Color: Clear, Yellow - Plan Additional Information: IMP: URINARY RETENTION. Incomplete bladder emptying, stable clinically. rec/plan: Pt does not want catheter at present - Date & Time of Note Date: 03/21/17 Time: 11:40
--- NOTE | 2017-03-21 17:19 | RAD ---
HISTORY: constipation COMPARISON: Not available FINDINGS: BOWEL: Unremarkable bowel gas pattern. Retained feces in the ascending colon. Oral contrast seen throughout the ascending and transverse colon from recent CT examination of 03/19/2017. No bowel obstruction. Surgical clips in right upper quadrant consistent with prior cholecystectomy. BONES: Normal. OTHER FINDINGS: None. IMPRESSION: No bowel obstruction
[2017-03-22 06:28] LABS: ALB/GLOB RATIO 1.3 (1.0-2.1); BILIRUBIN,TOTAL 0.2 mg/dL (0.2-1.3); CALCIUM 8.7 mg/dl (8.6-10.4); MAGNESIUM 1.9 mg/dL (1.6-2.3); POTASSIUM 4.4 mmol/L (3.6-5.2); TOTAL PROTEIN 5.8 g/dL (6.3-8.3)
[2017-03-22] MEDS: (Novolin R) Insulin Human Regular 100 units/ml vial SC SCH ×4 (08:25→21:23)
[2017-03-22] MEDS ORDERED: Magnesium Citrate Oral SOL (300 ml) PO ONE (10:30)
[2017-03-22] MEDS ORDERED: (Lantus) Insulin Glargine, Recombinant SC SCH (10:30)
--- NOTE | 2017-03-22 22:12 | CP.PCM.PN ---
<Abdulkadir Villarreal - Last Filed: 03/22/17 22:09> Subjective - Date & Time of Evaluation Date of Evaluation: 03/22/17 Time of Evaluation: 22:09 - Subjective Subjective: PGY1 Medicine Note for Dr. Waldrop Patient was seen and examined at bedside. Patient still complaining of abdominal pain, suprapubic pain, and a sensation of fullness. Patient states that she still has not had a BM after having miralax and laculose yesterday. Denied fever, chills, headache, SOB, chest pain, abdominal pain, n/v/d/c, dysuria, or hematuria. Objective - Vital Signs/Intake and Output Vital Signs (last 24 hours): Temp Pulse Resp BP Pulse Ox 98.8 F 76 20 114/59 L 98 03/22/17 15:36 03/22/17 16:00 03/22/17 15:36 03/22/17 15:36 03/22/17 15:36 Intake and Output: 03/22/17 03/23/17 18:59 06:59 Intake Total 810 Balance 810 - Medications Medications: Current Medications Albuterol (Ventolin Hfa 90 Mcg/Actuation (8 G)) 1 puff INH RQ4 PRN PRN Reason: Shortness of Breath Alprazolam (Xanax) 0.5 mg PO HS [facility] Last Admin: 03/22/17 21:15 Dose: 0.5 mg Aspirin (Ecotrin) 81 mg PO DAILY [facility] Last Admin: 03/22/17 10:43 Dose: 81 mg Benzonatate (Tessalon Perles) 100 mg PO TID PRN PRN Reason: Cough Clopidogrel Bisulfate (Plavix) 75 mg PO DAILY [facility] Last Admin: 03/22/17 10:45 Dose: 75 mg Docusate Sodium (Colace) 100 mg PO BID [facility] Last Admin: 03/22/17 17:59 Dose: 100 mg Famotidine (Pepcid) 20 mg PO HS [facility] Last Admin: 03/22/17 21:15 Dose: 20 mg Furosemide (Lasix) 40 mg PO DAILY [facility] Last Admin: 03/22/17 10:44 Dose: 40 mg Heparin Sodium (Porcine) (Heparin) 5,000 units SC Q12 [facility] Last Admin: 03/22/17 21:15 Dose: 5,000 units Ceftriaxone Sodium 1 gm/ (Sodium Chloride) 100 mls @ 100 mls/hr IVPB DAILY [facility] Last Admin: 03/22/17 10:43 Dose: 100 mls/hr Sodium Chloride (Sodium Chloride 0.9%) 1,000 mls @ 75 mls/hr IV .[id number] [facility] Last Admin: 03/21/17 17:16 Dose: Not Given Insulin Aspart (Novolog Mix 70/30 (70/30 Units/Ml)) 10 units SC BIDCC [facility] Insulin Human Regular (Novolin R) 0 unit SC ACHS [facility] PRN Reason: Protocol Last Admin: 03/22/17 21:23 Dose: Not Given Losartan Potassium (Cozaar) 25 mg PO DAILY [facility] Last Admin: 03/22/17 10:44 Dose: 25 mg Meclizine HCl (Antivert) 12.5 mg PO BID [facility] Last Admin: 03/22/17 17:59 Dose: 12.5 mg Promethazine HCl (Phenergan Syrup) 12.5 mg PO Q6 PRN PRN Reason: Cough Last Admin: 03/21/17 17:15 Dose: 12.5 mg Rosuvastatin Calcium (Crestor) 5 mg PO HS [facility] Last Admin: 03/22/17 21:15 Dose: 5 mg Tamsulosin HCl (Flomax) 0.4 mg PO DAILY [facility] Last Admin: 03/22/17 10:48 Dose: 0.4 mg - Labs Labs: 03/21/17 11:21 03/22/17 06:03 - Constitutional Appears: Non-toxic - Head Exam Head Exam: ATRAUMATIC, NORMOCEPHALIC - Eye Exam Eye Exam: EOMI, Normal appearance - ENT Exam ENT Exam: Mucous Membranes Moist - Respiratory Exam Respiratory Exam: Clear to Ausculation Bilateral, NORMAL BREATHING PATTERN - Cardiovascular Exam Cardiovascular Exam: REGULAR RHYTHM, +S1, +S2 - GI/Abdominal Exam GI & Abdominal Exam: Distended, Soft, Tenderness (diffuse), Diminished Bowel Sounds - Extremities Exam Extremities Exam: Normal Inspection. absent: Calf Tenderness, Pedal Edema - Neurological Exam Neurological Exam: Alert, Awake, Oriented x3 - Psychiatric Exam Psychiatric exam: Normal Affect, Normal Mood - Skin Skin Exam: Dry, Normal Color, Warm Assessment and Plan - Assessment and Plan (Free Text) Plan: UTI (urinary tract infection) Assessment and Plan: UA consistent with UTI patient was recently discharged on cipro for UTI, urine culture from 03/12 resulted with E.coli resistant to cipro Received one dose of Rocephin in ED Rocephin daily until repeat UC results F/U repeat UC Status: Acute Hx of Constipation Assessment and Plan: Abdominal Xray ordered Given one dose Miralax Colace 100mg PO BID Pt given 300 mL mag citrate - had "large" non bloody bowel movement this afternoon. patient feels very relieved at this moment. Urinary Retention Assessment and Plan: Renal US- bilateral renal cysts more on L> R kidney. Right hydronephrosis - mostly right extra renal pelviectasis - this is noted on CT on 03/19/17. No findings suggestive of pyelonephritis. Bladder scan showed retention of 500cc post voiding. Insertion of lema catheter ordered. Patient refused, order for straight catherization when bladder scan >200cc. Pending Urology reccs. Urology consulted- Dr. Bessy Cao - help appreciated - spoke to Dr. Emi Cao , recommend lema insertion. Will encourage lema insertion. Repeat bladder scans have been < 100cc Renal insufficiency Assessment and Plan: per EMR documentation, patient's baseline creatinine appears to be around 1.5 since december 2016, prior to that time, creatinine closer to 1.0 in December, patient was worked up for ARF by Dr. Ford and patient's clinical picture was more consistent with prerenal azotemia will give patient NS and continue to monitor renal function CT AB & Pelvis 03/19/17 - Diverticulosis without evidence of diverticulitis. Few hypodense lesions within left kidney. few punctate vascular calcifications vs calculi within left kidney. Mild pelvocaliectasis of both kidneys. Tiny umbilical hernia containing fat. Small ventral hernia containing fat. Last renal US in 12/2016 showed multiple left renal cysts, non obstructing calculus b/l Repeat renal US 03/20/17: Renal US- bilateral renal cysts more on L> R kidney. Right hydronephrosis - mostly right extra renal pelviectasis - this is noted on CT on 03/19/17. No findings suggestive of pyelonephritis. Chest pain R/O ACS Assessment and Plan: YADIRA negative x3 EKG with LBBB which is seen on prior EKGs Hx of coronary stenting in 2016 Cont ASA, Plavix and Crestor daily Heart Healthy diet Diabetes mellitus Assessment and Plan: Jose R Patient started on Home dosing of Novolog 70/30 10u BID ISS - medium A1c 01/12/17 was 7.1 A1C 03/20/17: 8.0 Status: Chronic Hypertension Assessment and Plan: Losartan 25 mg PO daily Cont to monitor Status: Chronic Vertigo Assessment and Plan: Meclizine 12.5mg PO BID Fall risk precautions Status: Chronic Arthritis Assessment and Plan: PT eval and treat Hx of frequent falls in the past (not on this admission) Status: Chronic Cough Assessment and Plan: albuterol inhaler 1 puff q4h as needed for shortness of breath tessalon perles Prophylactic measure Assessment and Plan: Heparin SC Q12 Pepcid 20 mg PO daily Fall risk precautions PT eval Discussed with Dr. Palma Villarreal PGY1 <Yasmani Waldrop M - Last Filed: 03/23/17 17:59> Objective - Vital Signs/Intake and Output Vital Signs (last 24 hours): Temp Pulse Resp BP Pulse Ox 97.6 F 73 18 123/68 99 03/23/17 15:35 03/23/17 15:35 03/23/17 15:35 03/23/17 15:35 03/23/17 15:35 Intake and Output: 03/23/17 03/23/17 06:59 18:59 Intake Total 600 1200 Balance 600 1200 - Medications Medications: Current Medications Albuterol (Ventolin Hfa 90 Mcg/Actuation (8 G)) 1 puff INH RQ4 PRN PRN Reason: Shortness of Breath Alprazolam (Xanax) 0.5 mg PO HS [facility] Last Admin: 03/22/17 21:15 Dose: 0.5 mg Aspirin (Ecotrin) 81 mg PO DAILY [facility] Last Admin: 03/23/17 10:52 Dose: 81 mg Benzonatate (Tessalon Perles) 100 mg PO TID PRN PRN Reason: Cough Clopidogrel Bisulfate (Plavix) 75 mg PO DAILY [facility] Last Admin: 03/23/17 10:51 Dose: 75 mg Famotidine (Pepcid) 20 mg PO HS [facility] Last Admin: 03/22/17 21:15 Dose: 20 mg Furosemide (Lasix) 40 mg PO DAILY [facility] Last Admin: 03/23/17 10:51 Dose: 40 mg Heparin Sodium (Porcine) (Heparin) 5,000 units SC Q12 [facility] Last Admin: 03/23/17 10:52 Dose: 5,000 units Ceftriaxone Sodium 1 gm/ (Sodium Chloride) 100 mls @ 100 mls/hr IVPB DAILY [facility] Last Admin: 03/23/17 10:52 Dose: 100 mls/hr Sodium Chloride (Sodium Chloride 0.9%) 1,000 mls @ 75 mls/hr IV .[id number] [facility] Last Admin: 03/23/17 13:08 Dose: 75 mls/hr Insulin Aspart (Novolog Mix 70/30 (70/30 Units/Ml)) 10 units SC BIDCC [facility] Last Admin: 03/23/17 08:43 Dose: Not Given Insulin Human Regular (Novolin R) 0 unit SC ACHS [facility] PRN Reason: Protocol Last Admin: 03/23/17 12:30 Dose: 3 unit Losartan Potassium (Cozaar) 25 mg PO DAILY [facility] Last Admin: 03/23/17 10:51 Dose: 25 mg Meclizine HCl (Antivert) 12.5 mg PO BID [facility] Last Admin: 03/23/17 10:51 Dose: 12.5 mg Promethazine HCl (Phenergan Syrup) 12.5 mg PO Q6 PRN PRN Reason: Cough Last Admin: 03/21/17 17:15 Dose: 12.5 mg Rosuvastatin Calcium (Crestor) 5 mg PO HS [facility] Last Admin: 03/22/17 21:15 Dose: 5 mg Tamsulosin HCl (Flomax) 0.4 mg PO DAILY [facility] Last Admin: 03/23/17 10:52 Dose: 0.4 mg - Labs Labs: 03/23/17 06:21 03/23/17 06:21 Attending/Attestation - Attestation I have personally seen and examined this patient.: Yes I have fully participated in the care of the patient.: Yes I have reviewed all pertinent clinical information, including history, physical exam and plan: Yes Notes (Text): 03/23/17 17:58 Patient was seen and examined at bedside with the resident Complains of constipation. We will continue with bowel regimen I discussed the plan of care with the resident and agree with the assessment and plan documented.
[2017-03-22] MEDS: Sodium Chloride 0.9% 1,000 ML IV SCH (22:33)
[2017-03-23 06:30] LABS: BASO # 0.1 K/uL (0.0-0.2); EOS # 0.4 K/uL (0.0-0.7); EOS % 6.4 % (0.0-4.0); HEMATOCRIT 24.8 % (34.0-47.0); LYMPH # 2.5 K/uL (1.0-4.3); LYMPH % 39.9 % (20.0-40.0); MEAN CELL VOLUME 86.2 fL (81.0-99.0); MEAN CORPUSCULAR HEMOGLOBIN 28.6 pg (27.0-31.0); MEAN CORPUSCULAR HGB CONC 33.2 g/dL (33.0-37.0); MEAN PLATELET VOLUME 8.7 fL (7.2-11.7); MONO # 0.7 K/uL (0.0-0.8); MONO % 11.3 % (0.0-10.0); RED CELL DISTRIBUTION WIDTH 13.9 % (11.5-14.5); WHITE BLOOD COUNT 6.2 K/uL (4.8-10.8)
[2017-03-23 06:50] LABS: ALB/GLOB RATIO 1.3 (1.0-2.1); BILIRUBIN,TOTAL 0.1 mg/dL (0.2-1.3); CALCIUM 8.8 mg/dl (8.6-10.4); MAGNESIUM 2.4 mg/dL (1.6-2.3); PHOSPHOROUS 3.7 mg/dL (2.5-4.5); POTASSIUM 4.4 mmol/L (3.6-5.2); TOTAL PROTEIN 5.6 g/dL (6.3-8.3)
[2017-03-23 08:18] VITALS: RESP 18
[2017-03-23] MEDS: (Novolin R) Insulin Human Regular 100 units/ml vial SC SCH ×3 (08:18→18:24)
[2017-03-23] MEDS: (Novolog Mix 70/30) Insulin Aspart/Insulin Aspar 100 units/ml SC SCH ×2 (08:43→18:27)
[2017-03-23] MEDS: Sodium Chloride 0.9% 1,000 ML IV SCH ×2 (08:45→13:08)
--- NOTE | 2017-03-23 15:42 | CARD ---
APPROVED REPORT EKG Measurement Heart [id number] <Conclusion> Sinus rhythm with premature atrial complexes Left bundle branch block Abnormal ECG
[2017-03-23 16:06] VITALS: BP 123/68; PULSE 73; TEMP 97.6; O2SAT 99
== END 2017-03-23 19:02 | disposition home or self-care (01) | DRG 392 ==
LOC: C.ER 18:12 → C.9E 23:24 → C.6T 03-20 13:36
PROVIDERS: ADMIT Family Medicine; ATTEND Family Medicine
DX: K57.90 Diverticulosis of intestine, part unspecified, without perforation or abscess without bleeding (principal); J44.9 Chronic obstructive pulmonary disease, unspecified; N39.0 Urinary tract infection, site not specified; E11.9 Type 2 diabetes mellitus without complications; I44.7 Left bundle-branch block, unspecified; I10 Essential (primary) hypertension; E78.00 Pure hypercholesterolemia, unspecified; F41.9 Anxiety disorder, unspecified; H40.9 Unspecified glaucoma; I25.10 Atherosclerotic heart disease of native coronary artery without angina pectoris; K29.70 Gastritis, unspecified, without bleeding; K43.9 Ventral hernia without obstruction or gangrene; K59.00 Constipation, unspecified; Z91.81 History of falling; Z95.5 Presence of coronary angioplasty implant and graft; R33.9 Retention of urine, unspecified; Z68.22 Body mass index [BMI] 22.0-22.9, adult

== ENCOUNTER 2017-07-01 21:28 | Inpatient (IN) | payer MEDICARE, MEDICAID ==
[2017-07-01 21:28] VITALS: BMI 23.6
[2017-07-01 22:09] LABS: BASO % 0.5 % (0.0-2.0); EOS % 0.5 % (0.0-4.0); HEMATOCRIT 29.4 % (34.0-47.0); LYMPH # 1.3 K/uL (1.0-4.3); LYMPH % 15.2 % (20.0-40.0); MEAN CORPUSCULAR HEMOGLOBIN 25.8 pg (27.0-31.0); MEAN CORPUSCULAR HGB CONC 32.5 g/dL (33.0-37.0); MEAN PLATELET VOLUME 9.6 fL (7.2-11.7); MONO # 0.7 K/uL (0.0-0.8); MONO % 8.2 % (0.0-10.0); NRBC % 0.1 % (0.0-2.0); RED CELL DISTRIBUTION WIDTH 15.2 % (11.5-14.5); WHITE BLOOD COUNT 8.7 K/uL (4.8-10.8)
[2017-07-01 22:33] LABS: MEAN CELL VOLUME 79.2 fL (81.0-99.0)
[2017-07-01 22:46] LABS: ALB/GLOB RATIO 0.9 (1.0-2.1); ALKALINE PHOSPHATASE 80 U/L (38-126); ALT/SGPT 24 U/L (9-52); AST/SGOT 24 U/L (14-36); BILIRUBIN,TOTAL 0.4 mg/dL (0.2-1.3); BLOOD UREA NITROGEN 51 mg/dL (7-17); CALCIUM 8.6 mg/dl (8.6-10.4); CARBON DIOXIDE 28 mmol/L (22-30); CHLORIDE 92 mmol/L (98-107); GFR AFRICAN-AMERICAN 37; GLUCOSE,RANDOM 227 mg/dL (65-105); POTASSIUM 4.1 mmol/L (3.6-5.2); SODIUM 131 mmol/L (132-148)
[2017-07-01] MEDS ORDERED: Sodium Chloride 0.9% 1,000 ML IV STA (22:49)
--- NOTE | 2017-07-01 23:44 | C.PDOC ---
Time Seen by Provider: 07/01/17 21:33 Chief Complaint (Nursing): Chest Pain History Per: Patient, EMS, Family (daughter) Onset/Duration Of Symptoms: Hrs (this afternoon) Current Symptoms Are (Timing): Still Present Severity: Moderate Quality: "Pain" Associated Symptoms: denies: Diaphoresis, Syncope Alleviating Factors: None Additional History Per: Prior Records Past Medical History Reviewed: Historical Data, Nursing Documentation, Vital Signs Vital Signs: Last Vital Signs Temp 100.0 F H 07/01/17 21:30 Pulse 70 07/01/17 23:00 Resp 16 07/01/17 23:00 BP 150/55 L 07/01/17 23:00 Pulse Ox 98 07/01/17 23:00 - Medical History PMH: Anemia, Anxiety, Arthritis, Asthma, Back Problems (HX CHRONIC BACK PAIN), CAD, COPD, Diabetes, Fractures (left wrist AND RT. HIP), Gastritis, HTN, Hypercholesterolemia, Hyperlipidemia, Osteoporosis, Rheumatoid Arthritis Surgical History: Coronary Stent (cad cath 02/2016 with stent) - [facility] Procedures APPLICATION OF SPLINT (06/18/14) EXCISION OF ASCENDING COLON, ENDO, DIAGN (12/05/16) EXCISION OF STOMACH, ENDO, DIAGN (12/05/16) FLUOROSCOPY OF LEFT HEART USING LOW OSMOLAR CONTRAST (02/05/16) GAIT TRAINING/AMBULAT TREATMENT USING ASSIST EQUIPMENT (11/08/15) INTRODUCE ANTI-INFLAM IN PERIPH NRV, PLEXI, PERC (11/08/15) INTRODUCE REGIONAL ANESTH IN PERIPH NRV, PLEXI, PERC (11/08/15) MEASURE OF CARDIAC SAMPL & PRESSURE, L HEART, PERC APPROACH (02/05/16) NEBULIZER THERAPY (06/16/14) REPAIR LEFT UPPER ARM TENDON, OPEN APPROACH (11/08/15) REPAIR OF HAMMER TOE (07/17/13) REPOSITION LEFT HUMERAL SHAFT WITH INT FIX, OPEN APPROACH (11/08/15) TRANSFUSE NONAUT RED BLOOD CELLS IN PERIPH VEIN, PERC (12/05/16) Family History: States: Unknown Family Hx - Social History Hx Tobacco Use: No Hx Alcohol Use: No Hx Substance Use: No - Immunization History Hx Tetanus Toxoid Vaccination: Yes (3 mos. ago) Hx Influenza Vaccination: No Hx Pneumococcal Vaccination: No Review Of Systems Except As Marked, All Systems Reviewed And Found Negative. Constitutional: Negative for: Fever Cardiovascular: Positive for: Chest Pain Respiratory: Negative for: Hemoptysis Gastrointestinal: Negative for: Vomiting, Abdominal Pain Skin: Negative for: Rash Neurological: Negative for: Weakness, Numbness, Seizures Physical Exam - Physical Exam Appears: Non-toxic, No Acute Distress, Chronically Ill Skin: Normal Color, Warm, Dry, No Rash Head: Atraumatic, Normacephalic Eye(s): bilateral: PERRL, EOMI Neck: Normal ROM, Supple Cardiovascular: Rhythm Regular Respiratory: Normal Breath Sounds, No Accessory Muscle Use Gastrointestinal/Abdominal: Soft, No Tenderness Extremity: Normal ROM Neurological/Psych: Normal Motor, Normal Sensation ED Course And Treatment - Laboratory Results Result Diagrams: 07/01/17 22:05 07/01/17 22:05 Interpretation Of Abnormal: Elevated BUN/Cr. ECG: Interpreted By Me, Viewed By Me ECG Rhythm: Sinus Rhythm, L BBB, Nonspecific Changes ECG Interpretation: No Changes From Prior Rate From EC O2 Sat by Pulse Oximetry: 98 Pulse Ox Interpretation: Normal - Radiology CXR: Interpreted by Me, Viewed By Me CXR Interpretation: Yes: No Acute Disease Progress - Interventions Interventions:: Observation, Intravenous fluid - Medications Administered Oral: Aspirin (taken by pt prior to arrival) - Data Reviewed Data Reviewed: Lab, Diagnostic imaging, EKG, Old records - Patient Status Patient status: Partially improved - Continuity of Care Discussed patient case with:: Patient, Family-HIPPA compliant, ED Nurse, Covering for PMD Disposition Discussed With : Jose Vidal Comment: He accepted pt on hospitalist service. Doctor Will See Patient In The: Hospital Counseled Patient/Family Regarding: Studies Performed, Diagnosis - Disposition Disposition: HOSPITALIZED Disposition Time: 23:45 Condition: FAIR - Clinical Impression Clinical Impression: Acute chest pain, Dehydration
--- NOTE | 2017-07-02 00:49 | CP.PCM.HP ---
Addendum entered and electronically signed by Sheree Mitchell 07/02/17 01:46 : Renal Insufficiency BUN/Cr: 51/1.6 NS @75 cc /hr continue to monitor previous workup from 03/2017: renal US in 12/2016 showed multiple left renal cysts, non obstructing calculus b/l renal US 03/20/17: bilateral renal cysts more on L> R kidney. Right hydronephrosis - mostly right extra renal pelviectasis - this is noted on CT on 03/19/17. No findings suggestive of pyelonephritis. Original Note: <Sheree Mitchell - Last Filed: 07/02/17 01:22> History of Present Illness - History of Present Illness History of Present Illness: CC: "chest pain and generalized pain" HPI: Patient is an 85y/o F with PMHx of CAD, HTN, DM, gastritis, asthma , arthritis, COPD, anxiety who presents for 1 day of chest pain, generalized body aches, and b/l knee pain. Patient said the pain started this morning and nothing made it better or worse. Patient is a poor historian and does not know if she took any different medications for the pain as her daughter is the one to give her all of her medications daily. When examined in the ED, patient no longer had any chest pain, but still complained of generalized pain and b/l knee pain. Patient denies any headache, shortness of breath, abdominal pain, nausea, vomiting, constipation, diarrhea. Patient unable to remember all of her medical history, supplemented with information from EMR. PMD- Dr. Gomez PMHx- CAD, HTN, DM, gastritis, asthma, arthritis, COPD, anxiety PSHX- hysterectomy and oopherectomy, cataract surgery, Cardiac cath 02/2016 with 2x stents Fam Hx- Mother had asthma, heart disease, at age 92 Meds- Crestor 5mg po HS, Pepcid 20mg po daily, ASA 81mg po daily, Plavix 75mg po daily, Losartan 25mg PO qd, Furosemide 40mg PO qd, Meclizine 12.5mg PO BID, Esomeprazole 40mg PO qd. Social Hx- smoked 1ppd x 50 yrs, quit 20 yrs ago; social drinker in the past, denies current use. denies illicit drug use. Patient lives with daughter who helps her with her medications. Allergies- NKDA Present on Admission - Present on Admission Any Indicators Present on Admission: No History of DVT/PE: No History of Uncontrolled Diabetes: Yes Urinary Catheter: No Decubitus Ulcer Present: No Review of Systems - Constitutional Constitutional: Fatigue, Headache - EENT Eyes: absent: Change in Vision, Diplopia - Cardiovascular Cardiovascular: absent: Chest Pain, Dyspnea, Leg Edema, Palpitations - Respiratory Respiratory: absent: Wheezing, Stridor - Gastrointestinal Gastrointestinal: absent: Abdominal Pain, Constipation, Diarrhea, Nausea, Vomiting - Genitourinary Genitourinary: absent: Difficulty Urinating - Musculoskeletal Musculoskeletal: Back Pain, Myalgias - Integumentary Integumentary: absent: Rash - Neurological Neurological: absent: Tingling Past Patient History - Infectious Disease Hx of Infectious Diseases: None - Tetanus Immunizations Tetanus Immunization: Unknown - Past Medical History & Family History Past Medical History?: Yes - Past Social History Smoking Status: Never Smoked - CARDIAC Hx Hypercholesterolemia: Yes Hx Hypertension: Yes - PULMONARY Hx Asthma: Yes Hx Chronic Obstructive Pulmonary Disease (COPD): Yes - NEUROLOGICAL Hx Neurological Disorder: No Hx Seizures: No - HEENT Hx HEENT Problems: Yes Hx Cataracts: Yes (right eye) Hx Glaucoma: Yes (left eye) Other/Comment: HUGHES LEFT EAR - RENAL Hx Chronic Kidney Disease: No - HEMATOLOGICAL/ONCOLOGICAL Hx Anemia: Yes - INTEGUMENTARY Hx Dermatological Problems: No - MUSCULOSKELETAL/RHEUMATOLOGICAL Hx Arthritis: Yes Hx Fractures: Yes (left wrist AND RT. HIP) Hx Osteoporosis: Yes Hx Rheumatoid Arthritis: Yes - GASTROINTESTINAL Hx Gastritis: Yes - GENITOURINARY/GYNECOLOGICAL Hx Genitourinary Disorders: Yes Other/Comment: fibroid surgery - PSYCHIATRIC Hx Anxiety: Yes Hx Substance Use: No - SURGICAL HISTORY Hx Coronary Stent: Yes (cad cath 02/2016 with stent) - ANESTHESIA Hx Anesthesia: Yes Hx Anesthesia Reactions: No Hx Malignant Hyperthermia: No Meds Allergies/Adverse Reactions: Allergies Allergy/AdvReac Type Severity Reaction Status Date / Time No Known Allergies Allergy Verified 07/01/17 21:29 Physical Exam - Constitutional Appears: Non-toxic, No Acute Distress - Head Exam Head Exam: ATRAUMATIC, NORMAL INSPECTION, NORMOCEPHALIC - Eye Exam Eye Exam: EOMI, Normal appearance - ENT Exam ENT Exam: Mucous Membranes Moist - Respiratory Exam Respiratory Exam: Clear to Auscultation Bilateral, NORMAL BREATHING PATTERN. absent: Rales, Rhonchi, Wheezes, Respiratory Distress, Stridor - Cardiovascular Exam Cardiovascular Exam: +S1, +S2 - GI/Abdominal Exam GI & Abdominal Exam: Normal Bowel Sounds, Soft. absent: Tenderness - Extremities Exam Extremities exam: Positive for: normal inspection. Negative for: pedal edema, tenderness - Neurological Exam Neurological exam: Alert - Psychiatric Exam Psychiatric exam: Normal Affect, Normal Mood - Skin Skin Exam: Intact, Normal Color, Warm Results - Vital Signs Recent Vital Signs: Last Vital Signs Temp 100.0 F H 07/01/17 21:30 Pulse 70 07/01/17 23:00 Resp 16 07/01/17 23:00 BP 150/55 L 07/01/17 23:00 Pulse Ox 98 07/01/17 23:45 - Labs Result Diagrams: 07/01/17 22:05 07/01/17 22:05 Labs: Laboratory Results - last 24 hr 07/01/17 07/01/17 07/01/17 21:51 21:54 22:05 WBC 8.7 RBC 3.72 L Hgb 9.6 L Hct 29.4 L MCV 79.2 L D MCH 25.8 L MCHC 32.5 L RDW 15.2 H Plt Count 198 MPV 9.6 Neut % (Auto) 75.6 H Lymph % (Auto) 15.2 L [place] % (Auto) 8.2 Eos % (Auto) 0.5 Baso % (Auto) 0.5 Neut # 6.6 Lymph # 1.3 [place] # 0.7 Eos # 0.0 Baso # 0.0 Sodium Potassium Chloride Carbon Dioxide Anion Gap BUN Creatinine Est GFR ( Amer) Est GFR (Non-Af Amer) Random Glucose Calcium Total Bilirubin AST ALT Alkaline Phosphatase Total Creatine Kinase CK-MB (Mass) Troponin I NT-Pro-B Natriuret Pep Total Protein Albumin Globulin Albumin/Globulin Ratio Influenza Typ A,B (EIA) Negative for flu a/b Grp A Beta Strep Ag Negative 07/01/17 22:05 WBC RBC Hgb Hct MCV MCH MCHC RDW Plt Count MPV Neut % (Auto) Lymph % (Auto) [place] % (Auto) Eos % (Auto) Baso % (Auto) Neut # Lymph # [place] # Eos # Baso # Sodium 131 L Potassium 4.1 Chloride 92 L Carbon Dioxide 28 Anion Gap 15 BUN 51 H Creatinine 1.6 H Est GFR ( Amer) 37 Est GFR (Non-Af Amer) 31 Random Glucose 227 H Calcium 8.6 Total Bilirubin 0.4 AST 24 ALT 24 Alkaline Phosphatase 80 Total Creatine Kinase 91 CK-MB (Mass) 0.71 Troponin I < 0.0120 NT-Pro-B Natriuret Pep 451 Total Protein 8.0 Albumin 3.9 Globulin 4.1 H Albumin/Globulin Ratio 0.9 L Influenza Typ A,B (EIA) Grp A Beta Strep Ag Assessment & Plan - Assessment and Plan (Free Text) Assessment: Chest Pain First YADIRA negative f/u ROMIs x 2 ASA 325mg po stat dose Dr. Hernandez consulted, help appreciated ECHO (01/22/17): normal LVEF (52), grade I abnormal relaxation, possible PFO Lexiscan nuclear stress test (01/24/17): normal CAD ASA 81 mg po daily Plavix 75mg po daily Crestor 5 mg po HS f/u lipid panel R/O UTI UA: Positive Nitrate, positive squamous epithelial cells- probable contamination repeat UA f/u urine culture Hyponatremia Na: 131, repeat CMP in am Asthma Albuterol QID PRN HTN Norvasc 10 mg po daily Lasix 40mg po daily Losartan 25mg po daily Vertigo Meclizine 12.5mg po BID DM Novolin 70/30 14 u sc daily ISS- low Accuchecks achs f/u HgA1C Hx Anemia Feosol 325mg po daily Anxiety Xanax 1 mg po daily Chronic Constipation Colace 100 mg po daily Prophylaxis GI: Pepcid 20mg po DVT: SCDs, Heparin 5000 u sc q8h Fall precautions <Jose Vidal - Last Filed: 07/02/17 06:29> Results - Vital Signs Recent Vital Signs: Last Vital Signs Temp 100.0 F H 07/01/17 21:30 Pulse 74 07/02/17 06:06 Resp 16 07/02/17 06:06 BP 134/59 L 07/02/17 06:06 Pulse Ox 97 07/02/17 03:41 - Labs Result Diagrams: 07/02/17 03:53 07/02/17 03:53 Labs: Laboratory Results - last 24 hr 11/26/17 11/26/17 11/26/17 21:51 21:54 22:05 WBC 8.7 RBC 3.72 L Hgb 9.6 L Hct 29.4 L MCV 79.2 L D MCH 25.8 L MCHC 32.5 L RDW 15.2 H Plt Count 198 MPV 9.6 Neut % (Auto) 75.6 H Lymph % (Auto) 15.2 L [place] % (Auto) 8.2 Eos % (Auto) 0.5 Baso % (Auto) 0.5 Neut # 6.6 Lymph # 1.3 [place] # 0.7 Eos # 0.0 Baso # 0.0 PT INR APTT Sodium Potassium Chloride Carbon Dioxide Anion Gap BUN Creatinine Est GFR ( Amer) Est GFR (Non-Af Amer) Random Glucose Hemoglobin A1c Calcium Phosphorus Magnesium Total Bilirubin AST ALT Alkaline Phosphatase Total Creatine Kinase CK-MB (Mass) Troponin I NT-Pro-B Natriuret Pep Total Protein Albumin Globulin Albumin/Globulin Ratio Triglycerides Cholesterol LDL Cholesterol Direct HDL Cholesterol Urine Color Urine Clarity Urine pH Ur Specific [place] Urine Protein Urine Glucose (UA) Urine Ketones Urine Blood Urine Nitrate Urine Bilirubin Urine Urobilinogen Ur Leukocyte Esterase Urine WBC (Auto) Urine RBC (Auto) Urine WBC Clumps (Auto) Ur Squamous Epith Cells Urine Bacteria Hyaline Casts Urine Yeast (Budding) Influenza Typ A,B (EIA) Negative for flu a/b Grp A Beta Strep Ag Negative 07/01/17 07/02/17 07/02/17 22:05 00:39 03:53 WBC RBC Hgb Hct MCV MCH MCHC RDW Plt Count MPV Neut % (Auto) Lymph % (Auto) [place] % (Auto) Eos % (Auto) Baso % (Auto) Neut # Lymph # [place] # Eos # Baso # PT 12.1 INR 1.1 APTT 30 Sodium 131 L Potassium 4.1 Chloride 92 L Carbon Dioxide 28 Anion Gap 15 BUN 51 H Creatinine 1.6 H Est GFR ( Amer) 37 Est GFR (Non-Af Amer) 31 Random Glucose 227 H Hemoglobin A1c Calcium 8.6 Phosphorus Magnesium Total Bilirubin 0.4 AST 24 ALT 24 Alkaline Phosphatase 80 Total Creatine Kinase 91 CK-MB (Mass) 0.71 Troponin I < 0.0120 NT-Pro-B Natriuret Pep 451 Total Protein 8.0 Albumin 3.9 Globulin 4.1 H Albumin/Globulin Ratio 0.9 L Triglycerides Cholesterol LDL Cholesterol Direct HDL Cholesterol Urine Color Yellow Urine Clarity Turbid Urine pH 6.0 Ur Specific [place] 1.006 Urine Protein 1+ H Urine Glucose (UA) Normal Urine Ketones Negative Urine Blood 1+ H Urine Nitrate Positive H Urine Bilirubin Negative Urine Urobilinogen Normal Ur Leukocyte Esterase 2+ H Urine WBC (Auto) 1436 H Urine RBC (Auto) 6 H Urine WBC Clumps (Auto) Many H Ur Squamous Epith Cells 15 H Urine Bacteria Few H Hyaline Casts 11-20 H Urine Yeast (Budding) Few H Influenza Typ A,B (EIA) Grp A Beta Strep Ag 07/02/17 07/02/17 07/02/17 03:53 03:53 03:53 WBC RBC Hgb Hct MCV MCH MCHC RDW Plt Count MPV Neut % (Auto) Lymph % (Auto) [place] % (Auto) Eos % (Auto) Baso % (Auto) Neut # Lymph # [place] # Eos # Baso # PT INR APTT Sodium 134 Potassium 3.8 Chloride 94 L Carbon Dioxide 29 Anion Gap 14 BUN 46 H Creatinine 1.5 H Est GFR ( Amer) 40 Est GFR (Non-Af Amer) 33 Random Glucose 182 H Hemoglobin A1c 9.2 H Calcium 8.5 L Phosphorus 4.0 Magnesium 1.5 L Total Bilirubin 0.7 AST 26 ALT 24 Alkaline Phosphatase 82 Total Creatine Kinase 87 CK-MB (Mass) 0.95 Troponin I 0.0140 NT-Pro-B Natriuret Pep Total Protein 7.1 Albumin 4.0 Globulin 3.1 Albumin/Globulin Ratio 1.3 Triglycerides 100 D Cholesterol 125 LDL Cholesterol Direct 66 HDL Cholesterol 38 Urine Color Urine Clarity Urine pH Ur Specific [place] Urine Protein Urine Glucose (UA) Urine Ketones Urine Blood Urine Nitrate Urine Bilirubin Urine Urobilinogen Ur Leukocyte Esterase Urine WBC (Auto) Urine RBC (Auto) Urine WBC Clumps (Auto) Ur Squamous Epith Cells Urine Bacteria Hyaline Casts Urine Yeast (Budding) Influenza Typ A,B (EIA) Grp A Beta Strep Ag 07/02/17 03:53 WBC 9.2 RBC 3.85 Hgb 9.9 L Hct 30.4 L MCV 78.8 L MCH 25.8 L MCHC 32.8 L RDW 15.1 H Plt Count 196 MPV 9.1 Neut % (Auto) 60.4 Lymph % (Auto) 26.5 [place] % (Auto) 10.2 H Eos % (Auto) 2.2 Baso % (Auto) 0.7 Neut # 5.5 Lymph # 2.4 [place] # 0.9 H Eos # 0.2 Baso # 0.1 PT INR APTT Sodium Potassium Chloride Carbon Dioxide Anion Gap BUN Creatinine Est GFR ( Amer) Est GFR (Non-Af Amer) Random Glucose Hemoglobin A1c Calcium Phosphorus Magnesium Total Bilirubin AST ALT Alkaline Phosphatase Total Creatine Kinase CK-MB (Mass) Troponin I NT-Pro-B Natriuret Pep Total Protein Albumin Globulin Albumin/Globulin Ratio Triglycerides Cholesterol LDL Cholesterol Direct HDL Cholesterol Urine Color Urine Clarity Urine pH Ur Specific [place] Urine Protein Urine Glucose (UA) Urine Ketones Urine Blood Urine Nitrate Urine Bilirubin Urine Urobilinogen Ur Leukocyte Esterase Urine WBC (Auto) Urine RBC (Auto) Urine WBC Clumps (Auto) Ur Squamous Epith Cells Urine Bacteria Hyaline Casts Urine Yeast (Budding) Influenza Typ A,B (EIA) Grp A Beta Strep Ag Assessment & Plan - Date & Time Date: 07/02/17 (I have seen and examined the patient. I agree with the findings and plan of care as documented by Dr. Mitchell. Patient with chest pain. History of CAD. Continue home meds. Aspirin and Statin. Consult to Cardio. Nadeem3 with EKG. Also with history of diabetes. NISS and accuchecks. Monitor for acute changes.) Time: 06:28 Attending/Attestation - Attestation I have personally seen and examined this patient.: Yes I have fully participated in the care of the patient.: Yes I have reviewed all pertinent clinical information: Yes
[2017-07-02 00:50] LABS: RBC URINE 6 /hpf (0-3); URINE BACTERIA FEW (<OCC); URINE BILIRUBIN NEGATIVE (NEGATIVE); URINE BLOOD 1+ (NEGATIVE); URINE COLOR Yellow (YELLOW); URINE GLUCOSE (UA) NORMAL (Normal); URINE KETONE NEGATIVE (NEGATIVE); URINE LEUKOCYTE ESTERASE 2+ Leu/uL (Negative); URINE PROTEIN 1+ mg/dL (NEGATIVE); URINE UROBILINOGEN NORMAL mg/dL (0.2-1.0); WBC CLUMPS MANY /hpf; WBC URINE 1436 /hpf (0-5)
[2017-07-02] MEDS ORDERED: Albuterol HFA 90 mcg/actuation (8 g) IH PRN (01:04)
[2017-07-02] MEDS ORDERED: POLYETHYLENE GLYCOL 3350 17 GM/Dose PACKET PO PRN (01:40)
[2017-07-02] MEDS: Sodium Chloride 0.9% 1,000 ML IV SCH ×2 (03:43→15:47)
[2017-07-02 03:58] LABS: BASO # 0.1 K/uL (0.0-0.2); BASO % 0.7 % (0.0-2.0); EOS # 0.2 K/uL (0.0-0.7); EOS % 2.2 % (0.0-4.0); HEMATOCRIT 30.4 % (34.0-47.0); LYMPH # 2.4 K/uL (1.0-4.3); LYMPH % 26.5 % (20.0-40.0); MEAN CELL VOLUME 78.8 fL (81.0-99.0); MEAN CORPUSCULAR HEMOGLOBIN 25.8 pg (27.0-31.0); MEAN CORPUSCULAR HGB CONC 32.8 g/dL (33.0-37.0); MEAN PLATELET VOLUME 9.1 fL (7.2-11.7); MONO # 0.9 K/uL (0.0-0.8); MONO % 10.2 % (0.0-10.0); RED CELL DISTRIBUTION WIDTH 15.1 % (11.5-14.5); WHITE BLOOD COUNT 9.2 K/uL (4.8-10.8)
[2017-07-02 04:02] LABS: INR 1.1
[2017-07-02 04:05] LABS: ALB/GLOB RATIO 1.3 (1.0-2.1); BILIRUBIN,TOTAL 0.7 mg/dL (0.2-1.3); CALCIUM 8.5 mg/dl (8.6-10.4); MAGNESIUM 1.5 mg/dL (1.6-2.3); POTASSIUM 3.8 mmol/L (3.6-5.2); TOTAL PROTEIN 7.1 g/dL (6.3-8.3)
[2017-07-02 04:17] LABS: TROPONIN I 0.014 ng/mL (0.00-0.120)
--- NOTE | 2017-07-02 09:41 | CP.PCM.PN ---
<Quin Gerardo - Last Filed: 07/02/17 18:21> Subjective - Date & Time of Evaluation Date of Evaluation: 07/02/17 Time of Evaluation: 09:30 - Subjective Subjective: Progress note for Dr. Jalloh PAtient seen and examined in emergency room at bedside. PAtient states she's feeling chest discomfort and no shortness of breath unless with exertion. Patient says she's hard of hearing, but has no other complaints. Patient denies fever, chills, nausea, vomiting. Patient states it's not he first time she is here for chest pain. Patient doesn't recall when her last time she had chest pain Objective - Vital Signs/Intake and Output Vital Signs (last 24 hours): Temp Pulse Resp BP Pulse Ox 100.0 F H 74 16 134/59 L 97 07/01/17 21:30 07/02/17 06:06 07/02/17 06:06 07/02/17 06:06 07/02/17 03:41 - Medications Medications: Current Medications Albuterol (Ventolin Hfa 90 Mcg/Actuation (8 G)) 1 puff IH QID PRN PRN Reason: Shortness of Breath Alprazolam (Xanax) 1 mg PO DAILY [facility] Amlodipine Besylate (Norvasc) 10 mg PO DAILY [facility] Aspirin (Ecotrin) 81 mg PO DAILY [facility] Brimonidine Tartrate (Alphagan 0.2% Opht) 0 ml OU BID [facility] Clopidogrel Bisulfate (Plavix) 75 mg PO DAILY [facility] Docusate Sodium (Colace) 100 mg PO DAILY [facility] Famotidine (Pepcid) 20 mg PO HS [facility] Ferrous Sulfate (Feosol) 325 mg PO DAILY [facility] Furosemide (Lasix) 40 mg PO DAILY [facility] Heparin Sodium (Porcine) (Heparin) 5,000 units SC Q8 [facility] Last Admin: 07/02/17 06:06 Dose: 5,000 units Sodium Chloride (Sodium Chloride 0.9%) 1,000 mls @ 75 mls/hr IV .[id number] [facility] Last Admin: 07/02/17 03:43 Dose: 75 mls/hr Insulin Human Isoph/Insulin Regular (Novolin 70/30 (70/30 Units/Ml) 10 Ml) 14 units SC DAILY [facility] Insulin Human Regular (Novolin R) 0 unit SC ACHS [facility] PRN Reason: Protocol Losartan Potassium (Cozaar) 25 mg PO DAILY [facility] Meclizine HCl (Antivert) 12.5 mg PO BID [facility] Polyethylene Glycol (Miralax) 17 gm PO DAILY PRN PRN Reason: Constipation Rosuvastatin Calcium (Crestor) 5 mg PO HS [facility] Timolol Maleate (Timoptic 0.5% Ophth Soln) 0 drop OU BID [facility] - Labs Labs: 07/02/17 03:53 07/02/17 03:53 PT 12.1 SECONDS (9.7-12.2) 07/02/17 03:53 INR 1.1 07/02/17 03:53 APTT 30 SECONDS (21-34) 07/02/17 03:53 - Constitutional Appears: Non-toxic, Other (frail) - Head Exam Head Exam: NORMAL INSPECTION - Eye Exam Eye Exam: EOMI, Normal appearance - ENT Exam ENT Exam: Mucous Membranes Moist - Cardiovascular Exam Cardiovascular Exam: REGULAR RHYTHM, +S1, +S2 - GI/Abdominal Exam GI & Abdominal Exam: Soft, Normal Bowel Sounds. absent: Tenderness - Extremities Exam Extremities Exam: Full ROM. absent: Joint Swelling, Pedal Edema - Neurological Exam Neurological Exam: Alert, Awake - Skin Skin Exam: Intact, Pallor, Warm Assessment and Plan - Assessment and Plan (Free Text) Assessment: Chest Pain First YADIRA negative f/u ROMIs x 3 ASA 325mg po stat dose in ED 07/02 Dr. Hernandez consulted ECHO (01/22/17): normal LVEF (52), grade I abnormal relaxation, possible PFO Lexiscan nuclear stress test (01/24/17): normal CAD ASA 81 mg po daily Plavix 75mg po daily Crestor 5 mg po HS 07/02 lipid panel: TG 100, Cholesterol 125, LDL 66, HDL 38 R/O UTI UA: Positive Nitrate, positive squamous epithelial cells- probable contamination repeat UA f/u urine culture Hyponatremia Na: 131, repeat CMP in am Asthma Albuterol QID PRN HTN Norvasc 10 mg po daily Lasix 40mg po daily Losartan 25mg po daily Vertigo Meclizine 12.5mg po BID DM Novolin 70/30 14 u sc daily ISS- low Accuchecks achs 07/02 HgA1C 9.2 Renal insufficiency BUN/Cr NS @75cc/hr continue to monitor previous workup from 03/2017 renal US 12/2016 left renal cysts and non-obstructing calculus bilaterally renal US 03/20/17: bilateral renal cysts more on L>R kidney. right hydronephrosis - mostly right extra renal pelviectasis CT abdomen/pelvis 03/19/17 no pyelonephritis found on CT abdomen/pelvis Hx Anemia Feosol 325mg po daily Anxiety Xanax 1 mg po daily Chronic Constipation Colace 100 mg po daily Prophylaxis GI: Pepcid 20mg po DVT: SCDs, Heparin 5000 u sc q8h Fall precautions Follow up social work/careworker referral for placement. There is only one family member at home. <Hieu Jalloh H - Last Filed: 07/02/17 18:45> Objective - Vital Signs/Intake and Output Vital Signs (last 24 hours): Temp Pulse Resp BP Pulse Ox 98.4 F 70 20 108/53 L 96 07/02/17 18:16 07/02/17 18:16 07/02/17 18:16 07/02/17 18:16 07/02/17 18:16 - Medications Medications: Current Medications Albuterol (Ventolin Hfa 90 Mcg/Actuation (8 G)) 1 puff IH QID PRN PRN Reason: Shortness of Breath Alprazolam (Xanax) 1 mg PO DAILY [facility] Last Admin: 07/02/17 10:51 Dose: 1 mg Amlodipine Besylate (Norvasc) 10 mg PO DAILY [facility] Last Admin: 07/02/17 10:51 Dose: 10 mg Aspirin (Ecotrin) 81 mg PO DAILY [facility] Last Admin: 07/02/17 10:50 Dose: 81 mg Brimonidine Tartrate (Alphagan 0.2% Opht) 0 ml OU BID [facility] Last Admin: 07/02/17 18:18 Dose: 1 drop Clopidogrel Bisulfate (Plavix) 75 mg PO DAILY [facility] Last Admin: 07/02/17 10:51 Dose: 75 mg Docusate Sodium (Colace) 100 mg PO DAILY [facility] Last Admin: 07/02/17 10:50 Dose: 100 mg Famotidine (Pepcid) 20 mg PO [facility] Ferrous Sulfate (Feosol) 325 mg PO DAILY [facility] Last Admin: 07/02/17 10:50 Dose: 325 mg Furosemide (Lasix) 40 mg PO DAILY [facility] Last Admin: 07/02/17 10:51 Dose: 40 mg Heparin Sodium (Porcine) (Heparin) 5,000 units SC Q8 [facility] Last Admin: 07/02/17 14:40 Dose: 5,000 units Sodium Chloride (Sodium Chloride 0.9%) 1,000 mls @ 75 mls/hr IV .[id number] [facility] Last Admin: 07/02/17 15:47 Dose: 75 mls/hr Insulin Human Isoph/Insulin Regular (Novolin 70/30 (70/30 Units/Ml) 10 Ml) 7 units SC Q12 [facility] Last Admin: 07/02/17 14:27 Dose: Not Given Insulin Human Regular (Novolin R) 0 unit SC ACHS [facility] PRN Reason: Protocol Last Admin: 07/02/17 18:00 Dose: Not Given Losartan Potassium (Cozaar) 25 mg PO DAILY [facility] Last Admin: 07/02/17 10:50 Dose: 25 mg Meclizine HCl (Antivert) 12.5 mg PO BID [facility] Last Admin: 07/02/17 18:18 Dose: 12.5 mg Polyethylene Glycol (Miralax) 17 gm PO DAILY PRN PRN Reason: Constipation Rosuvastatin Calcium (Crestor) 5 mg PO [facility] Timolol Maleate (Timoptic 0.5% Ophth Soln) 0 drop OU BID [facility] Last Admin: 07/02/17 18:18 Dose: 1 drop - Labs Labs: 07/02/17 03:53 07/02/17 03:53 PT 12.1 SECONDS (9.7-12.2) 07/02/17 03:53 INR 1.1 07/02/17 03:53 APTT 30 SECONDS (21-34) 07/02/17 03:53 Attending/Attestation - Attestation I have personally seen and examined this patient.: Yes I have fully participated in the care of the patient.: Yes I have reviewed all pertinent clinical information, including history, physical exam and plan: Yes Notes (Text): 07/02/17 18:45 Medical attending: Patient was seen and examined by me, agrees the above note by medical staff physician. This is a patient that is well known to the hospitalist service from repeat admissions usually due to chest pain The patient has a history of dementia. From what I understand she lives at home , only with one other person in her family with her. There some concern that she might not be able to readily take care of the patient. The patient reported that she's having some chest pain on the night of admission , however by the time we saw her she was not reporting this anymore. Nevertheless as documented in the resident note she's had a recent echo done, a recent nuclear stress test done. She is on aspirin and Plavix Crestor. Cardiology was also notified as well The admitting team last night suggested that we get a supervisor scouring pads/psychotherapist social worker evaluation since were concerned about the patient's activity of daily living as well as her home living situation with only one other family member available Thank you very much, Hieu Jalloh
[2017-07-02] MEDS ORDERED: Magnesium Sulfate 1 gm in D5W 1 GM/100 ML BAG IVPB ONE ×2 (09:54→10:37)
[2017-07-02] MEDS ORDERED: Home Med 1 UNIT (Lubiprostone [Amitiza] 24 MCG) PO SCH (10:00)
[2017-07-02] MEDS: (Novolin R) Insulin Human Regular 100 units/ml vial SC SCH ×4 (10:00→21:57)
[2017-07-02] MEDS ORDERED: Home Med 1 UNIT (Esomeprazole Magnesium [Nexium] 40 MG) PO SCH (10:00)
--- NOTE | 2017-07-02 10:00 | RAD ---
PROCEDURE: CHEST RADIOGRAPH, 1 VIEW HISTORY: Chest pain COMPARISON: Chest radiographs 03/19/2017. FINDINGS: LUNGS: Fibrotic changes are stable the right apex with remaining lung mackey clear. PLEURA: No pneumothorax or pleural fluid seen. CARDIOVASCULAR: Normal. OSSEOUS STRUCTURES: No significant abnormalities. VISUALIZED UPPER ABDOMEN: Normal. OTHER FINDINGS: None. IMPRESSION: Stable low right apical fibrosis. No acute cardiopulmonary findings with exam stable compared to prior chest 06/19/2017.
[2017-07-02] MEDS ORDERED: (Novolin R) Insulin Human Regular 100 units/ml vial ONE ×2 (10:37→14:40)
[2017-07-02] MEDS: Brimonidine 0.2% Opth Sol (5ml) OU SCH ×2 (12:00→18:18)
[2017-07-02] MEDS: (Novolin 70/30) NPH/Regular 70/30 Units/ml 10 ml vial SC SCH ×2 (14:27→21:57)
--- NOTE | 2017-07-02 18:00 | CARD ---
APPROVED REPORT EKG Measurement Heart [id number] <Conclusion> Normal sinus rhythm, lbbb T wave abnormality, consider lateral ischemia Abnormal ECG
[2017-07-03] MEDS: Sodium Chloride 0.9% 1,000 ML IV SCH ×2 (05:00→19:30)
[2017-07-03 07:42] LABS: BASO # 0.1 K/uL (0.0-0.2); EOS # 0.2 K/uL (0.0-0.7); EOS % 3.1 % (0.0-4.0); HEMATOCRIT 29.6 % (34.0-47.0); LYMPH # 1.7 K/uL (1.0-4.3); LYMPH % 30.2 % (20.0-40.0); MEAN CELL VOLUME 78.6 fL (81.0-99.0); MEAN CORPUSCULAR HEMOGLOBIN 25.8 pg (27.0-31.0); MEAN CORPUSCULAR HGB CONC 32.8 g/dL (33.0-37.0); MEAN PLATELET VOLUME 9.3 fL (7.2-11.7); MONO # 0.6 K/uL (0.0-0.8); MONO % 10.5 % (0.0-10.0); NRBC % 0.3 % (0.0-2.0); WHITE BLOOD COUNT 5.7 K/uL (4.8-10.8)
[2017-07-03 07:57] LABS: ALB/GLOB RATIO 1.4 (1.0-2.1); BILIRUBIN,TOTAL 0.7 mg/dL (0.2-1.3); CALCIUM 8.7 mg/dl (8.6-10.4); POTASSIUM 3.9 mmol/L (3.6-5.2); TOTAL PROTEIN 6.9 g/dL (6.3-8.3)
[2017-07-03] MEDS: (Novolin R) Insulin Human Regular 100 units/ml vial SC SCH ×4 (08:24→22:19)
--- NOTE | 2017-07-03 10:08 | CP.PCM.PN ---
Subjective - Date & Time of Evaluation Date of Evaluation: 07/03/17 Time of Evaluation: 10:07 - Subjective Subjective: Progress note for Dr. Jalloh Patient seen ad examined at bedside. No acute events overnight. Patient admits to cough with no phlegm on visit with Dr. Jalloh Patient complains of chest pain, which has been ongoing since admission. PAtient states the pain does not get worse with inspiration or movement. Patient states she lives alone per patient usually but daughter started lving with her because she's daughter is trying to get homemaker. Per RN patient is clear to be discharged to [facility]. Objective - Vital Signs/Intake and Output Vital Signs (last 24 hours): Temp Pulse Resp BP Pulse Ox 99 F 75 16 130/68 96 07/03/17 08:00 07/03/17 08:00 07/03/17 08:00 07/03/17 08:00 07/03/17 08:00 Intake and Output: 07/03/17 07/03/17 06:59 18:59 Intake Total 400 Balance 400 - Medications Medications: Current Medications Albuterol (Ventolin Hfa 90 Mcg/Actuation (8 G)) 1 puff IH QID PRN PRN Reason: Shortness of Breath Alprazolam (Xanax) 1 mg PO DAILY [facility] Last Admin: 07/02/17 10:51 Dose: 1 mg Amlodipine Besylate (Norvasc) 10 mg PO DAILY [facility] Last Admin: 07/02/17 10:51 Dose: 10 mg Aspirin (Ecotrin) 81 mg PO DAILY [facility] Last Admin: 07/02/17 10:50 Dose: 81 mg Brimonidine Tartrate (Alphagan 0.2% Opht) 0 ml OU BID [facility] Last Admin: 07/02/17 18:18 Dose: 1 drop Clopidogrel Bisulfate (Plavix) 75 mg PO DAILY [facility] Last Admin: 07/02/17 10:51 Dose: 75 mg Docusate Sodium (Colace) 100 mg PO DAILY [facility] Last Admin: 07/02/17 10:50 Dose: 100 mg Famotidine (Pepcid) 20 mg PO HS [facility] Last Admin: 07/02/17 21:54 Dose: 20 mg Ferrous Sulfate (Feosol) 325 mg PO DAILY [facility] Last Admin: 07/02/17 10:50 Dose: 325 mg Furosemide (Lasix) 40 mg PO DAILY [facility] Last Admin: 07/02/17 10:51 Dose: 40 mg Heparin Sodium (Porcine) (Heparin) 5,000 units SC Q8 [facility] Last Admin: 07/03/17 06:25 Dose: 5,000 units Sodium Chloride (Sodium Chloride 0.9%) 1,000 mls @ 75 mls/hr IV .[id number] [facility] Last Admin: 07/03/17 05:00 Dose: Not Given Insulin Human Isoph/Insulin Regular (Novolin 70/30 (70/30 Units/Ml) 10 Ml) 7 units SC Q12 [facility] Last Admin: 07/02/17 21:57 Dose: Not Given Insulin Human Regular (Novolin R) 0 unit SC ACHS [facility] PRN Reason: Protocol Last Admin: 07/03/17 08:24 Dose: 1 unit Losartan Potassium (Cozaar) 25 mg PO DAILY [facility] Last Admin: 07/02/17 10:50 Dose: 25 mg Meclizine HCl (Antivert) 12.5 mg PO BID [facility] Last Admin: 07/02/17 18:18 Dose: 12.5 mg Pneumococcal Polyvalent Vaccine (Pneumovax 23 Vaccine) 0.5 ml IM .ONCE ONE Stop: 07/04/17 10:01 Polyethylene Glycol (Miralax) 17 gm PO DAILY PRN PRN Reason: Constipation Rosuvastatin Calcium (Crestor) 5 mg PO HS [facility] Last Admin: 07/02/17 21:54 Dose: 5 mg Timolol Maleate (Timoptic 0.5% Ophth Soln) 0 drop OU BID [facility] Last Admin: 07/02/17 18:18 Dose: 1 drop - Labs Labs: 07/03/17 07:25 07/03/17 07:25 PT 12.1 SECONDS (9.7-12.2) 07/02/17 03:53 INR 1.1 07/02/17 03:53 APTT 30 SECONDS (21-34) 07/02/17 03:53 - Constitutional Appears: Non-toxic, Other (patient is frail) - Head Exam Head Exam: NORMAL INSPECTION - Eye Exam Eye Exam: EOMI, Normal appearance - Respiratory Exam Respiratory Exam: NORMAL BREATHING PATTERN Additional comments: no respiratory distress, wheezes, rhonchi - Cardiovascular Exam Cardiovascular Exam: REGULAR RHYTHM, +S1, +S2 - GI/Abdominal Exam GI & Abdominal Exam: Soft - Extremities Exam Extremities Exam: Full ROM Additional comments: no pedal edema - Back Exam Back Exam: Full ROM, NORMAL INSPECTION - Neurological Exam Neurological Exam: Alert, Awake - Psychiatric Exam Psychiatric exam: Normal Mood - Skin Skin Exam: Dry, Intact Assessment and Plan - Assessment and Plan (Free Text) Assessment: Assessment: Chest Pain First YADIRA negative f/u ROMIs x 3 ASA 325mg po stat dose in ED 07/02 Dr. Hernandez consulted ECHO (01/22/17): normal LVEF (52), grade I abnormal relaxation, possible PFO Lexiscan nuclear stress test (01/24/17): normal CAD ASA 81 mg po daily Plavix 75mg po daily Crestor 5 mg po HS 07/02 lipid panel: TG 100, Cholesterol 125, LDL 66, HDL 38 UTI UA: Positive Nitrate, positive squamous epithelial cells- probable contamination repeat UA 07/03 urine culture: gram negative rods Ceftriaxone 1gm IVP Q24H Hyponatremia Na: 131, repeat CMP in am Asthma Albuterol QID PRN HTN Norvasc 10 mg po daily Lasix 40mg po daily Losartan 25mg po daily Vertigo Meclizine 12.5mg po BID DM Novolin 70/30 14 u sc daily ISS- low Accuchecks achs 07/02 HgA1C 9.2 Renal insufficiency BUN/Cr NS @75cc/hr continue to monitor previous workup from 03/2017 renal US 12/2016 left renal cysts and non-obstructing calculus bilaterally renal US 03/20/17: bilateral renal cysts more on L>R kidney. right hydronephrosis - mostly right extra renal pelviectasis CT abdomen/pelvis 03/19/17 no pyelonephritis found on CT abdomen/pelvis Hx Anemia Feosol 325mg po daily Anxiety Xanax 1 mg po daily Chronic Constipation Colace 100 mg po daily Prophylaxis GI: Pepcid 20mg po DVT: SCDs, Heparin 5000 u sc q8h Fall precautions Follow up social work/careworker referral for placement. There is only one family member at home.
[2017-07-03] MEDS: (Novolin 70/30) NPH/Regular 70/30 Units/ml 10 ml vial SC SCH ×2 (10:37→22:26)
[2017-07-03] MEDS: Brimonidine 0.2% Opth Sol (5ml) OU SCH ×2 (10:38→17:27)
--- NOTE | 2017-07-03 22:26 | CP.PCM.CON ---
History of Present Illness - History of Present Illness History of Present Illness: 85 F with hx of CAD s/p LAD stent admitted for atypical chest pain Check Trops and ECHO Past Patient History - Infectious Disease Hx of Infectious Diseases: None - Tetanus Immunizations Tetanus Immunization: Unknown - Past Medical History & Family History Past Medical History?: Yes - Past Social History Smoking Status: Never Smoked - CARDIAC Hx Cardiac Disorders: Yes (CAD) - PULMONARY Hx Chronic Obstructive Pulmonary Disease (COPD): Yes - NEUROLOGICAL Hx Neurological Disorder: No Hx Seizures: No - HEENT Hx HEENT Problems: Yes Hx Cataracts: Yes (right eye) Hx Glaucoma: Yes (left eye) Other/Comment: [place] LEFT EAR - RENAL Hx Chronic Kidney Disease: No - ENDOCRINE/METABOLIC Hx Diabetes Mellitus Type 2: Yes - HEMATOLOGICAL/ONCOLOGICAL Hx Anemia: Yes - INTEGUMENTARY Hx Dermatological Problems: No - MUSCULOSKELETAL/RHEUMATOLOGICAL Hx Rheumatoid Arthritis: Yes - GASTROINTESTINAL Hx Gastritis: Yes - GENITOURINARY/GYNECOLOGICAL Hx Genitourinary Disorders: Yes Other/Comment: fibroid surgery - PSYCHIATRIC Hx Anxiety: Yes Hx Substance Use: No - SURGICAL HISTORY Hx Coronary Stent: Yes (cad cath 02/2016 with stent) - ANESTHESIA Hx Anesthesia: Yes Hx Anesthesia Reactions: No Hx Malignant Hyperthermia: No Has any member of the family had a problem w/ anesthesia?: No Meds Allergies/Adverse Reactions: Allergies Allergy/AdvReac Type Severity Reaction Status Date / Time No Known Allergies Allergy Verified 07/01/17 21:29 - Medications Medications: Current Medications Albuterol (Ventolin Hfa 90 Mcg/Actuation (8 G)) 1 puff IH QID PRN PRN Reason: Shortness of Breath Alprazolam (Xanax) 1 mg PO DAILY [facility] Last Admin: 07/03/17 10:35 Dose: 1 mg Amlodipine Besylate (Norvasc) 10 mg PO DAILY [facility] Last Admin: 07/03/17 10:37 Dose: 10 mg Aspirin (Ecotrin) 81 mg PO DAILY [facility] Last Admin: 07/03/17 10:37 Dose: 81 mg Brimonidine Tartrate (Alphagan 0.2% Opht) 0 ml OU BID [facility] Last Admin: 07/03/17 17:27 Dose: 1 drop Clopidogrel Bisulfate (Plavix) 75 mg PO DAILY [facility] Last Admin: 07/03/17 10:37 Dose: 75 mg Docusate Sodium (Colace) 100 mg PO DAILY [facility] Last Admin: 07/03/17 10:37 Dose: 100 mg Famotidine (Pepcid) 20 mg PO HS [facility] Last Admin: 07/03/17 21:14 Dose: 20 mg Ferrous Sulfate (Feosol) 325 mg PO DAILY [facility] Last Admin: 07/03/17 10:37 Dose: 325 mg Furosemide (Lasix) 40 mg PO DAILY [facility] Last Admin: 07/03/17 10:36 Dose: 40 mg Heparin Sodium (Porcine) (Heparin) 5,000 units SC Q8 [facility] Last Admin: 07/03/17 21:14 Dose: 5,000 units Sodium Chloride (Sodium Chloride 0.9%) 1,000 mls @ 75 mls/hr IV .[id number] [facility] Last Admin: 07/03/17 19:30 Dose: Not Given Ceftriaxone Sodium 1 gm/ (Dextrose) 100 mls @ 100 mls/hr IVPB DAILY [facility] Last Admin: 07/03/17 13:19 Dose: 100 mls/hr Insulin Human Isoph/Insulin Regular (Novolin 70/30 (70/30 Units/Ml) 10 Ml) 7 units SC Q12 [facility] Last Admin: 07/03/17 10:37 Dose: 7 units Insulin Human Regular (Novolin R) 0 unit SC ACHS [facility] PRN Reason: Protocol Last Admin: 07/03/17 22:19 Dose: Not Given Losartan Potassium (Cozaar) 25 mg PO DAILY [facility] Last Admin: 07/03/17 10:37 Dose: 25 mg Meclizine HCl (Antivert) 12.5 mg PO BID [facility] Last Admin: 07/03/17 17:15 Dose: 12.5 mg Pneumococcal Polyvalent Vaccine (Pneumovax 23 Vaccine) 0.5 ml IM .ONCE ONE Stop: 07/04/17 10:01 Polyethylene Glycol (Miralax) 17 gm PO DAILY PRN PRN Reason: Constipation Rosuvastatin Calcium (Crestor) 5 mg PO HS [facility] Last Admin: 07/03/17 21:14 Dose: 5 mg Timolol Maleate (Timoptic 0.5% Ophth Soln) 0 drop OU BID [facility] Last Admin: 07/03/17 17:15 Dose: 1 drop Results - Vital Signs Recent Vital Signs: Last Vital Signs Temp 98.1 F 07/03/17 15:00 Pulse 60 07/03/17 16:00 Resp 20 07/03/17 15:00 BP 117/62 07/03/17 15:00 Pulse Ox 98 07/03/17 15:00 - Labs Result Diagrams: 07/03/17 07:25 07/03/17 07:25 Labs: Laboratory Results - last 24 hr 07/03/17 07/03/17 07/03/17 06:36 07:25 07:25 WBC 5.7 RBC 3.77 L Hgb 9.7 L Hct 29.6 L MCV 78.6 L MCH 25.8 L MCHC 32.8 L RDW 15.0 H Plt Count 230 MPV 9.3 Neut % (Auto) 55.2 Lymph % (Auto) 30.2 [place] % (Auto) 10.5 H Eos % (Auto) 3.1 Baso % (Auto) 1.0 Neut # 3.2 Lymph # 1.7 [place] # 0.6 Eos # 0.2 Baso # 0.1 Sodium 138 Potassium 3.9 Chloride 97 L Carbon Dioxide 30 Anion Gap 15 BUN 47 H Creatinine 1.3 H Est GFR ( Amer) 47 Est GFR (Non-Af Amer) 39 POC Glucose (mg/dL) 181 H Random Glucose 156 H Calcium 8.7 Total Bilirubin 0.7 AST 24 ALT 30 Alkaline Phosphatase 73 Total Protein 6.9 Albumin 4.0 Globulin 2.9 Albumin/Globulin Ratio 1.4 07/03/17 07/03/17 07/03/17 11:47 16:12 21:05 WBC RBC Hgb Hct MCV MCH MCHC RDW Plt Count MPV Neut % (Auto) Lymph % (Auto) [place] % (Auto) Eos % (Auto) Baso % (Auto) Neut # Lymph # [place] # Eos # Baso # Sodium Potassium Chloride Carbon Dioxide Anion Gap BUN Creatinine Est GFR ( Amer) Est GFR (Non-Af Amer) POC Glucose (mg/dL) 270 H 135 H 230 H Random Glucose Calcium Total Bilirubin AST ALT Alkaline Phosphatase Total Protein Albumin Globulin Albumin/Globulin Ratio
[2017-07-04 07:28] LABS: BASO # 0.1 K/uL (0.0-0.2); BASO % 0.9 % (0.0-2.0); EOS # 0.3 K/uL (0.0-0.7); EOS % 4.5 % (0.0-4.0); HEMATOCRIT 27.1 % (34.0-47.0); LYMPH # 1.7 K/uL (1.0-4.3); LYMPH % 27.7 % (20.0-40.0); MEAN CELL VOLUME 78.6 fL (81.0-99.0); MEAN CORPUSCULAR HEMOGLOBIN 25.8 pg (27.0-31.0); MEAN CORPUSCULAR HGB CONC 32.8 g/dL (33.0-37.0); MEAN PLATELET VOLUME 9.4 fL (7.2-11.7); MONO # 0.7 K/uL (0.0-0.8); NRBC % 0.1 % (0.0-2.0); RED CELL DISTRIBUTION WIDTH 15.1 % (11.5-14.5); WHITE BLOOD COUNT 6.1 K/uL (4.8-10.8)
[2017-07-04 07:55] LABS: ALB/GLOB RATIO 1.3 (1.0-2.1); BILIRUBIN,TOTAL 0.5 mg/dL (0.2-1.3); CALCIUM 8.1 mg/dl (8.6-10.4); POTASSIUM 3.5 mmol/L (3.6-5.2); TOTAL PROTEIN 6.3 g/dL (6.3-8.3)
[2017-07-04] MEDS: (Novolin R) Insulin Human Regular 100 units/ml vial SC SCH ×4 (08:52→21:38)
[2017-07-04] MEDS ORDERED: Influenza Vaccine 60 mcg/0.5 mL SYR (4YR UP) IM ONE (10:00)
[2017-07-04] MEDS ORDERED: Pneumococcal 23-Valent Vaccine IM ONE (10:00)
[2017-07-04] MEDS: Brimonidine 0.2% Opth Sol (5ml) OU SCH ×2 (10:05→20:36)
[2017-07-04] MEDS: (Novolin 70/30) NPH/Regular 70/30 Units/ml 10 ml vial SC SCH ×2 (10:15→21:36)
--- NOTE | 2017-07-04 10:56 | CP.PCM.PN ---
<Quin Gerardo - Last Filed: 07/04/17 19:28> Subjective - Date & Time of Evaluation Date of Evaluation: 07/04/17 Time of Evaluation: 10:54 - Subjective Subjective: PRogress note for Dr. Jalloh Patient seen and examined at bedside. No acute events overnight. Patient states that she was nervous overnight because she does not want to go to a assisted. Patient expressed concerns and her concerns were acknowledged. Objective - Vital Signs/Intake and Output Vital Signs (last 24 hours): Temp Pulse Resp BP Pulse Ox 98.0 F 75 18 134/64 98 07/04/17 08:46 07/04/17 08:46 07/04/17 08:46 07/04/17 09:54 07/04/17 08:46 Intake and Output: 07/04/17 07/04/17 06:59 18:59 Intake Total 600 Balance 600 - Medications Medications: Current Medications Albuterol (Ventolin Hfa 90 Mcg/Actuation (8 G)) 1 puff IH QID PRN PRN Reason: Shortness of Breath Alprazolam (Xanax) 1 mg PO DAILY [facility] Last Admin: 07/04/17 09:53 Dose: 1 mg Amlodipine Besylate (Norvasc) 10 mg PO DAILY [facility] Last Admin: 07/04/17 09:55 Dose: 10 mg Aspirin (Ecotrin) 81 mg PO DAILY [facility] Last Admin: 07/04/17 09:56 Dose: 81 mg Brimonidine Tartrate (Alphagan 0.2% Opht) 0 ml OU BID [facility] Last Admin: 07/04/17 10:05 Dose: 1 drop Clopidogrel Bisulfate (Plavix) 75 mg PO DAILY [facility] Last Admin: 07/04/17 09:55 Dose: 75 mg Docusate Sodium (Colace) 100 mg PO DAILY [facility] Last Admin: 07/04/17 09:53 Dose: 100 mg Famotidine (Pepcid) 20 mg PO HS [facility] Last Admin: 07/03/17 21:14 Dose: 20 mg Ferrous Sulfate (Feosol) 325 mg PO DAILY [facility] Last Admin: 07/04/17 09:53 Dose: 325 mg Furosemide (Lasix) 40 mg PO DAILY [facility] Last Admin: 07/04/17 09:54 Dose: 40 mg Heparin Sodium (Porcine) (Heparin) 5,000 units SC Q8 [facility] Last Admin: 07/04/17 06:31 Dose: 5,000 units Sodium Chloride (Sodium Chloride 0.9%) 1,000 mls @ 75 mls/hr IV .[id number] [facility] Last Admin: 07/03/17 19:30 Dose: Not Given Ceftriaxone Sodium 1 gm/ (Dextrose) 100 mls @ 100 mls/hr IVPB DAILY [facility] Last Admin: 07/04/17 10:18 Dose: 100 mls/hr Insulin Human Isoph/Insulin Regular (Novolin 70/30 (70/30 Units/Ml) 10 Ml) 7 units SC Q12 [facility] Last Admin: 07/04/17 10:15 Dose: 7 units Insulin Human Regular (Novolin R) 0 unit SC ACHS [facility] PRN Reason: Protocol Last Admin: 07/04/17 08:52 Dose: 1 unit Losartan Potassium (Cozaar) 25 mg PO DAILY [facility] Last Admin: 07/04/17 09:53 Dose: 25 mg Meclizine HCl (Antivert) 12.5 mg PO BID [facility] Last Admin: 07/04/17 09:53 Dose: 12.5 mg Polyethylene Glycol (Miralax) 17 gm PO DAILY PRN PRN Reason: Constipation Last Admin: 07/04/17 08:51 Dose: 17 gm Rosuvastatin Calcium (Crestor) 5 mg PO HS [facility] Last Admin: 07/03/17 21:14 Dose: 5 mg Timolol Maleate (Timoptic 0.5% Ophth Soln) 0 drop OU BID [facility] Last Admin: 07/04/17 10:05 Dose: 1 drop - Labs Labs: 07/04/17 07:12 07/04/17 07:12 PT 12.1 SECONDS (9.7-12.2) 07/02/17 03:53 INR 1.1 07/02/17 03:53 APTT 30 SECONDS (21-34) 07/02/17 03:53 - Constitutional Appears: Non-toxic, No Acute Distress - Head Exam Head Exam: NORMAL INSPECTION - ENT Exam ENT Exam: Mucous Membranes Moist - Neck Exam Neck Exam: Normal Inspection - Respiratory Exam Respiratory Exam: NORMAL BREATHING PATTERN - Cardiovascular Exam Cardiovascular Exam: REGULAR RHYTHM, +S1, +S2 - GI/Abdominal Exam GI & Abdominal Exam: Soft, Normal Bowel Sounds - Extremities Exam Extremities Exam: Full ROM, Normal Inspection - Neurological Exam Neurological Exam: Alert, Awake - Psychiatric Exam Psychiatric exam: Normal Affect, Normal Mood - Skin Skin Exam: Pallor, Warm Assessment and Plan - Assessment and Plan (Free Text) Assessment: 07/03/17 07:25 PT 12.1 SECONDS (9.7-12.2) 07/02/17 03:53 INR 1.1 07/02/17 03:53 APTT 30 SECONDS (21-34) 07/02/17 03:53 Assessment: Chest Pain First YADIRA negative f/u ROMIs x 3 ASA 325mg po stat dose in ED 07/02 Dr. Hernandez consulted ECHO (01/22/17): normal LVEF (52), grade I abnormal relaxation, possible PFO Lexiscan nuclear stress test (01/24/17): normal CAD ASA 81 mg po daily Plavix 75mg po daily Crestor 5 mg po HS 07/02 lipid panel: TG 100, Cholesterol 125, LDL 66, HDL 38 UTI UA: Positive Nitrate, positive squamous epithelial cells- probable contamination repeat UA 07/03 urine culture: gram negative rods Ceftriaxone 1gm IVP Q24H Hyponatremia, Resolved Asthma Albuterol QID PRN HTN Norvasc 10 mg po daily Lasix 40mg po daily Losartan 25mg po daily Vertigo Meclizine 12.5mg po BID DM Novolin 70/30 14 u sc daily ISS- low Accuchecks achs 07/02 HgA1C 9.2 Renal insufficiency BUN/Cr NS @75cc/hr continue to monitor previous workup from 03/2017 renal US 12/2016 left renal cysts and non-obstructing calculus bilaterally renal US 03/20/17: bilateral renal cysts more on L>R kidney. right hydronephrosis - mostly right extra renal pelviectasis CT abdomen/pelvis 03/19/17 no pyelonephritis found on CT abdomen/pelvis Hx Anemia Feosol 325mg po daily Anxiety Xanax 1 mg po daily Chronic Constipation Colace 100 mg po daily Prophylaxis GI: Pepcid 20mg po DVT: SCDs, Heparin 5000 u sc q8h Fall precautions Follow up social work/careworker referral for placement. There is only one family member at home. 07/04: Patient is likely to be transferred tomorrow after approval of assisted <Hieu Jalloh - Last Filed: 07/05/17 07:25> Objective - Vital Signs/Intake and Output Vital Signs (last 24 hours): Temp Pulse Resp BP Pulse Ox 98.5 F 65 20 102/53 L 97 07/04/17 23:30 07/05/17 03:58 07/04/17 23:30 07/04/17 23:30 07/04/17 23:30 - Medications Medications: Current Medications Albuterol (Ventolin Hfa 90 Mcg/Actuation (8 G)) 1 puff IH QID PRN PRN Reason: Shortness of Breath Alprazolam (Xanax) 1 mg PO DAILY [facility] Last Admin: 07/04/17 09:53 Dose: 1 mg Amlodipine Besylate (Norvasc) 10 mg PO DAILY [facility] Last Admin: 07/04/17 09:55 Dose: 10 mg Aspirin (Ecotrin) 81 mg PO DAILY [facility] Last Admin: 07/04/17 09:56 Dose: 81 mg Brimonidine Tartrate (Alphagan 0.2% Opht) 0 ml OU BID [facility] Last Admin: 07/04/17 20:36 Dose: 1 drop Clopidogrel Bisulfate (Plavix) 75 mg PO DAILY [facility] Last Admin: 07/04/17 09:55 Dose: 75 mg Docusate Sodium (Colace) 100 mg PO DAILY [facility] Last Admin: 07/04/17 09:53 Dose: 100 mg Famotidine (Pepcid) 20 mg PO HS [facility] Last Admin: 07/04/17 21:36 Dose: 20 mg Ferrous Sulfate (Feosol) 325 mg PO DAILY [facility] Last Admin: 07/04/17 09:53 Dose: 325 mg Furosemide (Lasix) 40 mg PO DAILY [facility] Last Admin: 07/04/17 09:54 Dose: 40 mg Ceftriaxone Sodium 1 gm/ (Dextrose) 100 mls @ 100 mls/hr IVPB DAILY [facility] Last Admin: 07/04/17 10:18 Dose: 100 mls/hr Insulin Human Isoph/Insulin Regular (Novolin 70/30 (70/30 Units/Ml) 10 Ml) 7 units SC Q12 [facility] Last Admin: 07/04/17 21:36 Dose: 7 units Insulin Human Regular (Novolin R) 0 unit SC ACHS [facility] PRN Reason: Protocol Last Admin: 07/04/17 21:38 Dose: Not Given Losartan Potassium (Cozaar) 25 mg PO DAILY [facility] Last Admin: 07/04/17 09:53 Dose: 25 mg Meclizine HCl (Antivert) 12.5 mg PO BID [facility] Last Admin: 07/04/17 20:36 Dose: 12.5 mg Polyethylene Glycol (Miralax) 17 gm PO DAILY PRN PRN Reason: Constipation Last Admin: 07/04/17 08:51 Dose: 17 gm Potassium Chloride (K-Dur 20 Meq Er Tab) 20 meq PO DAILY [facility] Rosuvastatin Calcium (Crestor) 5 mg PO HS [facility] Last Admin: 07/04/17 21:34 Dose: 5 mg Timolol Maleate (Timoptic 0.5% Ophth Soln) 0 drop OU BID [facility] Last Admin: 07/04/17 20:37 Dose: 1 drop - Labs Labs: 07/04/17 07:12 07/04/17 07:12 PT 12.1 SECONDS (9.7-12.2) 07/02/17 03:53 INR 1.1 07/02/17 03:53 APTT 30 SECONDS (21-34) 07/02/17 03:53 Attending/Attestation - Attestation I have personally seen and examined this patient.: Yes I have fully participated in the care of the patient.: Yes I have reviewed all pertinent clinical information, including history, physical exam and plan: Yes Notes (Text): Medical attending: Patient was seen and examined by me. Agree with the above note by the resident The patient was not in any acute distress however the RNs seeing the patients explained that the patient is often very anxious and pacing in the room all the time by herself. As previously mentioned we are pending approval before she can be moved to [facility]/ Assisted living. thank you Hieu Jalloh
[2017-07-05] MEDS: (Novolin R) Insulin Human Regular 100 units/ml vial SC SCH ×3 (08:00→16:53)
[2017-07-05 08:30] LABS: BASO % 0.6 % (0.0-2.0); EOS # 0.3 K/uL (0.0-0.7); HEMATOCRIT 27.7 % (34.0-47.0); LYMPH # 2.4 K/uL (1.0-4.3); MEAN CELL VOLUME 78.6 fL (81.0-99.0); MEAN CORPUSCULAR HEMOGLOBIN 26.1 pg (27.0-31.0); MEAN CORPUSCULAR HGB CONC 33.3 g/dL (33.0-37.0); MEAN PLATELET VOLUME 9.1 fL (7.2-11.7); MONO # 0.9 K/uL (0.0-0.8); MONO % 13.3 % (0.0-10.0); RED CELL DISTRIBUTION WIDTH 15.4 % (11.5-14.5); WHITE BLOOD COUNT 6.4 K/uL (4.8-10.8)
[2017-07-05 08:46] LABS: ALB/GLOB RATIO 1.3 (1.0-2.1); BILIRUBIN,TOTAL 0.5 mg/dL (0.2-1.3); CALCIUM 8.2 mg/dl (8.6-10.4); POTASSIUM 3.6 mmol/L (3.6-5.2); TOTAL PROTEIN 6.4 g/dL (6.3-8.3)
--- NOTE | 2017-07-05 09:56 | CP.PCM.PN ---
Subjective - Date & Time of Evaluation Date of Evaluation: 07/05/17 Time of Evaluation: 09:45 - Subjective Subjective: Progress note Patient seen and examined at bedside. No acute events overnight. RN called to say patient has low blood pressure and bradycardia. This resident went to check on the patient. Patient appeared to be sleepy and did complain of chest pain and body aches. No shortness of breath, signs of respiratory distress. Patient had blood pressure rechecked and blood pressure was within normal limits. Patient is still bradycardic Objective - Vital Signs/Intake and Output Vital Signs (last 24 hours): Temp Pulse Resp BP Pulse Ox 97.7 F 58 L 20 118/63 95 07/05/17 07:35 07/05/17 07:35 07/05/17 07:35 07/05/17 07:35 07/05/17 07:35 - Medications Medications: Current Medications Albuterol (Ventolin Hfa 90 Mcg/Actuation (8 G)) 1 puff IH QID PRN PRN Reason: Shortness of Breath Alprazolam (Xanax) 1 mg PO DAILY [facility] Last Admin: 07/04/17 09:53 Dose: 1 mg Amlodipine Besylate (Norvasc) 10 mg PO DAILY [facility] Last Admin: 07/04/17 09:55 Dose: 10 mg Aspirin (Ecotrin) 81 mg PO DAILY [facility] Last Admin: 07/04/17 09:56 Dose: 81 mg Brimonidine Tartrate (Alphagan 0.2% Opht) 0 ml OU BID [facility] Last Admin: 07/04/17 20:36 Dose: 1 drop Clopidogrel Bisulfate (Plavix) 75 mg PO DAILY [facility] Last Admin: 07/04/17 09:55 Dose: 75 mg Docusate Sodium (Colace) 100 mg PO DAILY [facility] Last Admin: 07/04/17 09:53 Dose: 100 mg Famotidine (Pepcid) 20 mg PO HS [facility] Last Admin: 07/04/17 21:36 Dose: 20 mg Ferrous Sulfate (Feosol) 325 mg PO DAILY [facility] Last Admin: 07/04/17 09:53 Dose: 325 mg Furosemide (Lasix) 40 mg PO DAILY [facility] Last Admin: 07/04/17 09:54 Dose: 40 mg Ceftriaxone Sodium 1 gm/ (Dextrose) 100 mls @ 100 mls/hr IVPB DAILY [facility] Last Admin: 07/04/17 10:18 Dose: 100 mls/hr Insulin Human Isoph/Insulin Regular (Novolin 70/30 (70/30 Units/Ml) 10 Ml) 7 units SC Q12 [facility] Last Admin: 07/04/17 21:36 Dose: 7 units Insulin Human Regular (Novolin R) 0 unit SC ACHS [facility] PRN Reason: Protocol Last Admin: 07/04/17 21:38 Dose: Not Given Losartan Potassium (Cozaar) 25 mg PO DAILY [facility] Last Admin: 07/04/17 09:53 Dose: 25 mg Meclizine HCl (Antivert) 12.5 mg PO BID [facility] Last Admin: 07/04/17 20:36 Dose: 12.5 mg Polyethylene Glycol (Miralax) 17 gm PO DAILY PRN PRN Reason: Constipation Last Admin: 07/04/17 08:51 Dose: 17 gm Potassium Chloride (K-Dur 20 Meq Er Tab) 20 meq PO DAILY [facility] Rosuvastatin Calcium (Crestor) 5 mg PO HS [facility] Last Admin: 07/04/17 21:34 Dose: 5 mg Timolol Maleate (Timoptic 0.5% Ophth Soln) 0 drop OU BID [facility] Last Admin: 07/04/17 20:37 Dose: 1 drop - Labs Labs: 07/05/17 08:22 07/05/17 08:22 PT 12.1 SECONDS (9.7-12.2) 07/02/17 03:53 INR 1.1 07/02/17 03:53 APTT 30 SECONDS (21-34) 07/02/17 03:53 - Constitutional Appears: Non-toxic - Head Exam Head Exam: NORMAL INSPECTION - Eye Exam Eye Exam: EOMI, Normal appearance - ENT Exam ENT Exam: Mucous Membranes Moist - Neck Exam Neck Exam: Full ROM - Respiratory Exam Respiratory Exam: Respiratory Distress, NORMAL BREATHING PATTERN. absent: Accessory Muscle Use, Clear to Ausculation Bilateral - Cardiovascular Exam Cardiovascular Exam: Bradycardia, REGULAR RHYTHM, +S1, +S2 - GI/Abdominal Exam GI & Abdominal Exam: Soft. absent: Tenderness - Extremities Exam Extremities Exam: Full ROM. absent: Pedal Edema - Back Exam Back Exam: Full ROM - Neurological Exam Neurological Exam: Alert, Awake - Skin Skin Exam: Pallor, Warm Assessment and Plan - Assessment and Plan (Free Text) Assessment: Chest Pain First YADIRA negative f/u ROMIs x 3 ASA 325mg po stat dose in ED 07/02 Dr. Hernandez consulted ECHO (01/22/17): normal LVEF (52), grade I abnormal relaxation, possible PFO Lexiscan nuclear stress test (01/24/17): normal CAD ASA 81 mg po daily Plavix 75mg po daily Crestor 5 mg po HS 07/02 lipid panel: TG 100, Cholesterol 125, LDL 66, HDL 38 UTI UA: Positive Nitrate, positive squamous epithelial cells- probable contamination repeat UA 07/03 urine culture: gram negative rods Ceftriaxone 1gm IVP Q24H Hyponatremia, Resolved Asthma Albuterol QID PRN HTN Norvasc 10 mg po daily Lasix 40mg po daily Losartan 25mg po daily Vertigo Meclizine 12.5mg po BID DM Novolin 70/30 14 u sc daily ISS- low Accuchecks achs 07/02 HgA1C 9.2 Renal insufficiency BUN/Cr NS @75cc/hr continue to monitor previous workup from 03/2017 renal US 12/2016 left renal cysts and non-obstructing calculus bilaterally renal US 03/20/17: bilateral renal cysts more on L>R kidney. right hydronephrosis - mostly right extra renal pelviectasis CT abdomen/pelvis 03/19/17 no pyelonephritis found on CT abdomen/pelvis Hx Anemia Feosol 325mg po daily MCV still indicative of microcytic anemia Anxiety Xanax 1 mg po daily Chronic Constipation Colace 100 mg po daily Prophylaxis GI: Pepcid 20mg po DVT: SCDs, Heparin 5000 u sc q8h Fall precautions Follow up social work/careworker referral for placement. There is only one family member at home. 07/04: Patient is likely to be transferred tomorrow after approval of longterm
[2017-07-05] MEDS ORDERED: Potassium Chloride 20 mEq ER Tab PO SCH (10:00)
[2017-07-05] MEDS: (Novolin 70/30) NPH/Regular 70/30 Units/ml 10 ml vial SC SCH (10:16)
[2017-07-05] MEDS: Brimonidine 0.2% Opth Sol (5ml) OU SCH ×2 (10:17→17:39)
[2017-07-05 15:57] VITALS: BP 131/54; RESP 18; TEMP 98.2; O2SAT 99
[2017-07-05 16:21] VITALS: PULSE 70
--- NOTE | 2017-07-05 18:35 | CP.PCM.DIS ---
Provider - Provider Date of Admission: 07/02/17 15:59 Attending physician: Hieu Jalloh DO Consults: Cardio: Dr. Hernandez Time Spent in preparation of Discharge (in minutes): 35 Hospital Course - Lab Results Lab Results: Micro Results 07/01/17 21:40 Blood Blood Culture - Preliminary NO GROWTH AFTER 48 HOURS 07/01/17 22:00 Blood Blood Culture - Preliminary NO GROWTH AFTER 48 HOURS 07/01/17 21:57 Urine Urine Culture - Final Escherichia Coli 07/01/17 21:51 Throat Group A Strep Throat Culture - Final NO BETA STREP GROUP A ISOLATED. Most Recent Lab Values WBC 6.4 K/uL (4.8-10.8) 07/05/17 08:22 RBC 3.52 Mil/uL (3.80-5.20) L 07/05/17 08:22 Hgb 9.2 g/dL (11.0-16.0) L 07/05/17 08:22 Hct 27.7 % (34.0-47.0) L 07/05/17 08:22 MCV 78.6 fL (81.0-99.0) L 07/05/17 08:22 MCH 26.1 pg (27.0-31.0) L 07/05/17 08:22 MCHC 33.3 g/dL (33.0-37.0) 07/05/17 08:22 RDW 15.4 % (11.5-14.5) H 07/05/17 08:22 Plt Count 222 K/uL (130-400) 07/05/17 08:22 MPV 9.1 fL (7.2-11.7) 07/05/17 08:22 Neut % (Auto) 44.1 % (50.0-75.0) L 07/05/17 08:22 Lymph % (Auto) 37.0 % (20.0-40.0) 07/05/17 08:22 [place] % (Auto) 13.3 % (0.0-10.0) H 07/05/17 08:22 Eos % (Auto) 5.0 % (0.0-4.0) H 07/05/17 08:22 Baso % (Auto) 0.6 % (0.0-2.0) 07/05/17 08:22 Neut # 2.8 K/uL (1.8-7.0) 07/05/17 08:22 Lymph # 2.4 K/uL (1.0-4.3) 07/05/17 08:22 [place] # 0.9 K/uL (0.0-0.8) H 07/05/17 08:22 Eos # 0.3 K/uL (0.0-0.7) 07/05/17 08:22 Baso # 0.0 K/uL (0.0-0.2) 07/05/17 08:22 PT 12.1 SECONDS (9.7-12.2) 07/02/17 03:53 INR 1.1 07/02/17 03:53 APTT 30 SECONDS (21-34) 07/02/17 03:53 Sodium 142 mmol/L (132-148) 07/05/17 08:22 Potassium 3.6 mmol/L (3.6-5.2) 07/05/17 08:22 Chloride 99 mmol/L (98-107) 07/05/17 08:22 Carbon Dioxide 31 mmol/L (22-30) H 07/05/17 08:22 Anion Gap 16 (10-20) 07/05/17 08:22 BUN 37 mg/dL (7-17) H 07/05/17 08:22 Creatinine 1.1 mg/dL (0.7-1.2) 07/05/17 08:22 Est GFR ( Amer) 57 07/05/17 08:22 Est GFR (Non-Af Amer) 47 07/05/17 08:22 POC Glucose (mg/dL) 133 mg/dL (65-110) H 07/05/17 16:17 Random Glucose 114 mg/dL (65-105) H 07/05/17 08:22 Hemoglobin A1c 9.2 % (4.2-6.5) H 07/02/17 03:53 Calcium 8.2 mg/dl (8.6-10.4) L 07/05/17 08:22 Phosphorus 4.0 mg/dL (2.5-4.5) 07/02/17 03:53 Magnesium 1.5 mg/dL (1.6-2.3) L 07/02/17 03:53 Total Bilirubin 0.5 mg/dL (0.2-1.3) 07/05/17 08:22 AST 22 U/L (14-36) 07/05/17 08:22 ALT 24 U/L (9-52) 07/05/17 08:22 Alkaline Phosphatase 63 U/L (38-126) 07/05/17 08:22 Total Creatine Kinase 64 U/L (30-135) 07/02/17 12:19 CK-MB (Mass) 0.83 ng/mL (0.0-3.38) 07/02/17 12:19 Troponin I < 0.0120 ng/mL (0.00-0.120) 07/02/17 12:19 NT-Pro-B Natriuret Pep 451 pg/mL (0-900) 07/01/17 22:05 Total Protein 6.4 g/dL (6.3-8.3) 07/05/17 08:22 Albumin 3.6 g/dL (3.5-5.0) 07/05/17 08:22 Globulin 2.8 gm/dL (2.2-3.9) 07/05/17 08:22 Albumin/Globulin Ratio 1.3 (1.0-2.1) 07/05/17 08:22 Triglycerides 100 mg/dL (0-149) D 07/02/17 03:53 Cholesterol 125 mg/dL (0-199) 07/02/17 03:53 LDL Cholesterol Direct 66 mg/dL (0-129) 07/02/17 03:53 HDL Cholesterol 38 mg/dL (30-70) 07/02/17 03:53 Urine Color Yellow (YELLOW) 07/02/17 00:39 Urine Clarity Turbid (Clear) 07/02/17 00:39 Urine pH 6.0 (5.0-8.0) 07/02/17 00:39 Ur Specific [place] 1.006 (1.003-1.030) 07/02/17 00:39 Urine Protein 1+ mg/dL (NEGATIVE) H 07/02/17 00:39 Urine Glucose (UA) Normal mg/dL (Normal) 07/02/17 00:39 Urine Ketones Negative mg/dL (NEGATIVE) 07/02/17 00:39 Urine Blood 1+ (NEGATIVE) H 07/02/17 00:39 Urine Nitrate Positive (NEGATIVE) H 07/02/17 00:39 Urine Bilirubin Negative (NEGATIVE) 07/02/17 00:39 Urine Urobilinogen Normal mg/dL (0.2-1.0) 07/02/17 00:39 Ur Leukocyte Esterase 2+ Branden/uL (Negative) H 07/02/17 00:39 Urine WBC (Auto) 1436 /hpf (0-5) H 07/02/17 00:39 Urine RBC (Auto) 6 /hpf (0-3) H 07/02/17 00:39 Urine WBC Clumps (Auto) Many /hpf (NONE) H 07/02/17 00:39 Ur Squamous Epith Cells 15 /hpf (0-5) H 07/02/17 00:39 Urine Bacteria Few (<OCC) H 07/02/17 00:39 Hyaline Casts 11-20 /lpf (0-2) H 07/02/17 00:39 Urine Yeast (Budding) Few /hpf (NEGATIVE) H 07/02/17 00:39 Influenza Typ A,B (EIA) Negative for flu a/b (NEGATIVE) 07/01/17 21:54 Grp A Beta Strep Ag Negative (NEGATIVE) 07/01/17 21:51 - Hospital Course Hospital Course: HPI: Patient is an 85y/o F with PMHx of CAD, HTN, DM, gastritis, asthma , arthritis, COPD, anxiety who presents for 1 day of chest pain, generalized body aches, and b/l knee pain. Patient said the pain started this morning and nothing made it better or worse. Patient is a poor historian and does not know if she took any different medications for the pain as her daughter is the one to give her all of her medications daily. When examined in the ED, patient no longer had any chest pain, but still complained of generalized pain and b/l knee pain. Patient denies any headache, shortness of breath, abdominal pain, nausea, vomiting, constipation, diarrhea. Patient unable to remember all of her medical history, supplemented with information from EMR. Hospital Course Patient was admitted for chest pain. In the ED, CXR was done and showed stable low right apical fibrosis with no acute cardiopulmonary findings. ECHO from 01/22 showed EF of 52%, grade I abnormal relaxation, and possible PFO. Lexiscan nuclear stress test was done on 01/24/17 and showed normal findings. YADIRA were negative x3. Cardio consult was placed. Patient was stable and cleared for discharge to [facility]/ assisted. - Date & Time of H&P Date of H&P: 07/05/17 Time of H&P: 18:35 Discharge Exam - Head Exam Head Exam: NORMAL INSPECTION - Additional Findings Additional findings: - Constitutional Appears: Non-toxic - Head Exam Head Exam: NORMAL INSPECTION - Eye Exam Eye Exam: EOMI, Normal appearance - ENT Exam ENT Exam: Mucous Membranes Moist - Neck Exam Neck Exam: Full ROM - Respiratory Exam Respiratory Exam: Respiratory Distress, NORMAL BREATHING PATTERN. absent: Accessory Muscle Use, Clear to Ausculation Bilateral - Cardiovascular Exam Cardiovascular Exam: Bradycardia, REGULAR RHYTHM, +S1, +S2 - GI/Abdominal Exam GI & Abdominal Exam: Soft. absent: Tenderness - Extremities Exam Extremities Exam: Full ROM. absent: Pedal Edema - Back Exam Back Exam: Full ROM - Neurological Exam Neurological Exam: Alert, Awake - Skin Skin Exam: Pallor, Warm Discharge Plan - Follow Up Plan Condition: FAIR Disposition: NURSING FACILITY MEDICAID CERT Instructions: Coronary Artery Disease (DC), Chest Pain (DC), Dehydration (DC), Urinary Tract Infection in Women (DC), Fall Prevention for Older Adults (GEN), Fall Prevention (DC) Additional Instructions: continue with current medical management Patient is to follow up with patient access representative and primary care doctor for one week. return to ED if chest pain worsens Patient will go to [facility] Referrals: Chuck Gomez MD [Staff Provider] -
== END 2017-07-05 18:59 | DRG 303 ==
LOC: EDBD 21:28 → C.ER 21:28 → C.9E 23:45 → OBSVTOIN 07-02 15:59 → C.6T 07-02 16:46
PROVIDERS: ADMIT Hospitalist; ATTEND Hospitalist
DX: I25.119 Atherosclerotic heart disease of native coronary artery with unspecified angina pectoris (principal); E11.9 Type 2 diabetes mellitus without complications; D64.9 Anemia, unspecified; E87.1 Hypo-osmolality and hyponatremia; E86.0 Dehydration; E78.00 Pure hypercholesterolemia, unspecified; N39.0 Urinary tract infection, site not specified; F41.9 Anxiety disorder, unspecified; I10 Essential (primary) hypertension; J44.9 Chronic obstructive pulmonary disease, unspecified; N28.9 Disorder of kidney and ureter, unspecified; K59.09 Other constipation; N20.0 Calculus of kidney; M06.9 Rheumatoid arthritis, unspecified; F03.90 Unspecified dementia, unspecified severity, without behavioral disturbance, psychotic disturbance, mood disturbance, and anxiety; Z87.442 Personal history of urinary calculi; Z79.02 Long term (current) use of antithrombotics/antiplatelets; Z79.82 Long term (current) use of aspirin; Z79.899 Other long term (current) drug therapy; Z82.5 Family history of asthma and other chronic lower respiratory diseases; Z95.5 Presence of coronary angioplasty implant and graft; Z79.4 Long term (current) use of insulin

== ENCOUNTER 2017-10-03 02:06 | Inpatient (IN) | payer MEDICARE, MEDICAID ==
--- NOTE | 2017-10-03 02:19 | C.PDOC ---
History Of Present Illness Patient presents to the ER with a complaint of diffuse body aches, fever, and chills intermittently for the past 2 weeks; associated with chest discomfort today. Patient is currently speaking in complete sentences. Denies SOB, nausea, or vomiting. History Per: Patient History/Exam Limitations: no limitations Onset/Duration Of Symptoms: Days, Intermittent Episodes Current Symptoms Are (Timing): Still Present Severity: Moderate Pain Scale Rating Of: 4 Recent travel outside of the [place]: No Past Medical History Reviewed: Historical Data, Nursing Documentation, Vital Signs Vital Signs: Last Vital Signs Temp 103.3 F H 10/03/17 02:21 Pulse 109 H 10/03/17 02:56 Resp 24 10/03/17 02:56 BP 135/59 L 10/03/17 02:56 Pulse Ox 96 10/03/17 03:08 - Medical History PMH: Anemia, Anxiety, Arthritis, Asthma, Back Problems (HX CHRONIC BACK PAIN), CAD, COPD, Diabetes, Fractures (left wrist AND RT. HIP), Gastritis, HTN, Hypercholesterolemia, Hyperlipidemia, Osteoporosis, Rheumatoid Arthritis Surgical History: Coronary Stent (cad cath 02/2016 with stent) - [facility] Procedures APPLICATION OF SPLINT (06/18/14) EXCISION OF ASCENDING COLON, ENDO, DIAGN (12/05/16) EXCISION OF STOMACH, ENDO, DIAGN (12/05/16) FLUOROSCOPY OF LEFT HEART USING LOW OSMOLAR CONTRAST (02/05/16) GAIT TRAINING/AMBULAT TREATMENT USING ASSIST EQUIPMENT (11/08/15) INTRODUCE ANTI-INFLAM IN PERIPH NRV, PLEXI, PERC (11/08/15) INTRODUCE REGIONAL ANESTH IN PERIPH NRV, PLEXI, PERC (11/08/15) MEASURE OF CARDIAC SAMPL & PRESSURE, L HEART, PERC APPROACH (02/05/16) NEBULIZER THERAPY (06/16/14) REPAIR LEFT UPPER ARM TENDON, OPEN APPROACH (11/08/15) REPAIR OF HAMMER TOE (07/17/13) REPOSITION LEFT HUMERAL SHAFT WITH INT FIX, OPEN APPROACH (11/08/15) TRANSFUSE NONAUT RED BLOOD CELLS IN PERIPH VEIN, PERC (12/05/16) Family History: States: No Known Family Hx - Social History Hx Tobacco Use: No Hx Alcohol Use: No Hx Substance Use: No - Immunization History Hx Tetanus Toxoid Vaccination: Yes (3 mos. ago) Hx Influenza Vaccination: No Hx Pneumococcal Vaccination: No Review Of Systems Constitutional: Positive for: Fever, Chills Cardiovascular: Positive for: Other (Chest discomfort) Respiratory: Negative for: Shortness of Breath Gastrointestinal: Negative for: Nausea, Vomiting Musculoskeletal: Positive for: Other (Diffuse body aches) Physical Exam - Physical Exam Appears: Non-toxic Skin: Warm, Dry Head: Normacephalic Oral Mucosa: Dry Chest: Symmetrical, No Tenderness Cardiovascular: Rhythm Regular Respiratory: No Rales, Rhonchi (Scattered), No Wheezing Gastrointestinal/Abdominal: Bowel Sounds (Active), Soft, No Tenderness, No Distention Neurological/Psych: Oriented x3 ED Course And Treatment - Laboratory Results Result Diagrams: 10/03/17 02:37 10/03/17 02:37 ECG: Interpreted By Me, Viewed By Me ECG Rhythm: Sinus Rhythm (95), L BBB, Nonspecific Changes (unchanged from or 03/20/17) O2 Sat by Pulse Oximetry: 96 Pulse Ox Interpretation: Normal - Radiology CXR: Interpreted by Me, Viewed By Me CXR Interpretation: Yes: Other (fibrotic changes, unchnaged). No: Infiltrates, Fracture, Pnemothorax Progress Note: EKG, urinalysis, flu swab, blood work, and CXR ordered. Duoneb, tamiflu, and tylenol administered. Disposition Discussed With Dr.: Jose Vidal Comment: accepted the pt on his service and took over the care at 3:20 AM Doctor Will See Patient In The: ED Counseled Patient/Family Regarding: Studies Performed, Diagnosis - Disposition Referrals: Chuck Gomez MD [Primary Care Provider] - Disposition: HOSPITALIZED Disposition Time: 02:19 Condition: FAIR - Clinical Impression Clinical Impression: COPD with acute exacerbation, Fever, Hyperglycemia, Anemia - Scribe Statement The provider has reviewed the documentation as recorded by the Scribe Enrique Aparicio All medical record entries made by the Scribe were at my direction and personally dictated by me. I have reviewed the chart and agree that the record accurately reflects my personal performance of the history, physical exam, medical decision making, and the department course for this patient. I have also personally directed, reviewed, and agree with the discharge instructions and disposition. Decision To Admit - Pt Status Changed To: Hospital Disposition Of: Inpatient - Admit Certification Admit to Inpatient:: After my assessment, the patient will require hospitalization for at least two midnights. This is because of the severity of symptoms shown, intensity of services needed, and/or the medical risk in this patient being treated as an outpatient. - InPatient: Physician Admission Certification: I certify that this patient requires 2 or more midnights of care for the following reason:: After my assessment, the patient will require hospitalization for at least two midnights. This is because of the severity of symptoms shown, intensity of services needed, and/or the medical risk in this patient being treated as an outpatient. - . Bed Request Type: Regular Patient Diagnosis: COPD with acute exacerbation, Fever, Hyperglycemia, Anemia
[2017-10-03 02:20] VITALS: BMI 21.4
[2017-10-03] MEDS: Albuterol-Ipratrop 3 mg / 0.5 (3 ml) UD IH SCH ×3 (02:30→02:54)
[2017-10-03 02:46] LABS: VENOUS BLOOD GAS BASE EXCESS -0.4 mmol/L (0.0-2.0); VENOUS BLOOD GAS PCO2 45 mmHg (40-60); VENOUS BLOOD GAS PO2 24 mm/Hg (30-55); VENOUS BLOOD PH 7.36 (7.32-7.43)
[2017-10-03] MEDS ORDERED: Albuterol-Ipratrop 3 mg / 0.5 (3 ml) UD ONE ×4 (02:46→08:29)
[2017-10-03 02:48] LABS: BASO % 0.3 % (0.0-2.0); EOS # 0.1 K/uL (0.0-0.7); EOS % 0.5 % (0.0-4.0); HEMOGLOBIN 8.4 g/dL (11.0-16.0); LYMPH # 1.2 K/uL (1.0-4.3); LYMPH % 9.6 % (20.0-40.0); MEAN CORPUSCULAR HEMOGLOBIN 28.6 pg (27.0-31.0); MEAN CORPUSCULAR HGB CONC 33.3 g/dL (33.0-37.0); MEAN PLATELET VOLUME 8.5 fL (7.2-11.7); MONO # 1.7 K/uL (0.0-0.8); NEUT # 9.1 K/uL (1.8-7.0); NEUT % 75.6 % (50.0-75.0); PLATELET COUNT 187 K/uL (130-400); RBC 2.94 Mil/uL (3.80-5.20); RED CELL DISTRIBUTION WIDTH 15.8 % (11.5-14.5)
[2017-10-03 03:05] LABS: INR 1.2; PROTHROMBIN TIME 12.9 SECONDS (9.7-12.2)
[2017-10-03 03:09] LABS: MEAN CELL VOLUME 85.8 fL (81.0-99.0)
[2017-10-03] MEDS ORDERED: Piperacillin/Tazobact 3.375 gm 100 ML IVPB STA (03:12)
[2017-10-03 03:13] LABS: ALBUMIN 3.9 g/dL (3.5-5.0); CALCIUM 8.8 mg/dl (8.6-10.4); MAGNESIUM 1.8 mg/dL (1.6-2.3)
[2017-10-03] MEDS: Piperacill/Tazo 3.375gm in Dex 3.375 GM/50 ML BAG IVPB STA (03:20)
[2017-10-03 03:25] LABS: TROPONIN I 0.034 ng/mL (0.00-0.120)
[2017-10-03 04:01] LABS: ANISOCYTOSIS SLIGHT; BANDS 1 % (0-2); LYMPHOCYTE 10 % (20-40); MONOCYTE 13 % (0-10); NEUTROPHIL 76 % (50-75); PLATELET ESTIMATE NORMAL (NORMAL); POIKILOCYTOSIS SLIGHT; TOTAL CELLS COUNTED 100
--- NOTE | 2017-10-03 04:22 | CP.PCM.HP ---
<Valeriy Love Harriet - Last Filed: 10/03/17 05:27> History of Present Illness - History of Present Illness History of Present Illness: CC: "I don't feel well" HPI: Mrs Curiel is a 86 year old female who presents to [facility] ER because she states she's had subjective fevers for the last 2 days along with diffuse body aches. She's also felt fatigued. She states she's had difficulty breathing during this time as well. She endorses a cough productive of green sputum for the past 2 days. She also admits to a sore throat. She states she's eaten less than normal the last few days. Additionally she complained of reproducible chest pain on the left side of her chest that is worse during the cough. She denies focal deficits, nausea, vomiting, diarrhea, dysuria. ED course: Tamiflu 75mg PO ONCE, Zosyn 3.375g IV, Tylenol 975mg ONCE, CXR, Blood Cx, EKG, Nebulizer Tx PMD: Dr. Gomez PMHx: CAD, HTN, DM, gastritis, asthma, arthritis, COPD, anxiety PSHX: hysterectomy and oopherectomy, cataract surgery, Cardiac cath 02/2016 with 2x stents Allergies: NKDA FamHx: Mother had asthma, heart disease, at age 92 Meds: Crestor 5mg po HS, Pepcid 20mg po daily, ASA 81mg po daily, Plavix 75mg po daily, Losartan 25mg PO qd, Furosemide 40mg PO qd, Meclizine 12.5mg PO BID, Esomeprazole 40mg PO qd. (List retrieved from chart review - patient unable to recall her meds and did not have list with her) SocialHx: smoked 1ppd x 50 yrs, quit 20 yrs ago; social drinker in the past, denies current use. denies illicit drug use. Patient lives with daughter who helps her with her medications. Present on Admission - Present on Admission Any Indicators Present on Admission: No Review of Systems - Constitutional Constitutional: Chills, Fatigue, Fever, Weakness - EENT Eyes: absent: Change in Vision - Cardiovascular Cardiovascular: Chest Pain, Chest Pain at Rest, Dyspnea. absent: Palpitations - Respiratory Respiratory: Cough, Dyspnea, Change in Mucous Color, Pain with Coughing - Gastrointestinal Gastrointestinal: absent: Constipation, Diarrhea, Vomiting - Genitourinary Genitourinary: absent: Dysuria - Musculoskeletal Musculoskeletal: Back Pain, Myalgias - Neurological Neurological: absent: Dizziness Past Patient History - Infectious Disease Hx of Infectious Diseases: None - Tetanus Immunizations Tetanus Immunization: Unknown - Past Medical History & Family History Past Medical History?: Yes - Past Social History Smoking Status: Never Smoked - CARDIAC Hx Hypercholesterolemia: Yes Hx Hypertension: Yes - PULMONARY Hx Asthma: Yes Hx Chronic Obstructive Pulmonary Disease (COPD): Yes - NEUROLOGICAL Hx Seizures: No - HEENT Hx HEENT Problems: Yes Hx Cataracts: Yes (right eye) Hx Glaucoma: Yes (left eye) Other/Comment: [place] LEFT EAR - RENAL Hx Chronic Kidney Disease: No - HEMATOLOGICAL/ONCOLOGICAL Hx Anemia: Yes - INTEGUMENTARY Hx Dermatological Problems: No - MUSCULOSKELETAL/RHEUMATOLOGICAL Hx Arthritis: Yes Hx Fractures: Yes (left wrist AND RT. HIP) Hx Osteoporosis: Yes Hx Rheumatoid Arthritis: Yes - GASTROINTESTINAL Hx Gastritis: Yes - GENITOURINARY/GYNECOLOGICAL Hx Genitourinary Disorders: Yes Other/Comment: fibroid surgery - PSYCHIATRIC Hx Anxiety: Yes Hx Substance Use: No - SURGICAL HISTORY Hx Coronary Stent: Yes (cad cath 02/2016 with stent) - ANESTHESIA Hx Anesthesia: Yes Hx Anesthesia Reactions: No Hx Malignant Hyperthermia: No Meds Allergies/Adverse Reactions: Allergies Allergy/AdvReac Type Severity Reaction Status Date / Time No Known Allergies Allergy Verified 10/03/17 02:16 Physical Exam - Constitutional Appears: Non-toxic, No Acute Distress - Head Exam Head Exam: ATRAUMATIC, NORMAL INSPECTION - Eye Exam Eye Exam: EOMI Pupil Exam: PERRL - ENT Exam ENT Exam: Mucous Membranes Dry - Neck Exam Neck exam: Negative for: Lymphadenopathy, Tenderness - Respiratory Exam Respiratory Exam: Rhonchi, NORMAL BREATHING PATTERN Additional comments: Rhonchi heard best at right lung base - Cardiovascular Exam Cardiovascular Exam: Tachycardia, REGULAR RHYTHM, RRR, +S1, +S2. absent: Systolic Murmur - GI/Abdominal Exam GI & Abdominal Exam: Normal Bowel Sounds, Soft. absent: Distended, Guarding, Tenderness - Extremities Exam Extremities exam: Positive for: normal inspection. Negative for: pedal edema - Back Exam Back exam: NORMAL INSPECTION. absent: CVA tenderness (L), CVA tenderness (R) - Neurological Exam Neurological exam: Oriented x3 - Psychiatric Exam Psychiatric exam: Normal Affect, Normal Mood - Skin Skin Exam: Intact, Normal Color, Warm Results - Vital Signs Recent Vital Signs: Last Vital Signs Temp 100.2 F H 10/03/17 03:49 Pulse 105 H 10/03/17 03:49 Resp 18 10/03/17 03:49 BP 100/50 L 10/03/17 03:49 Pulse Ox 96 10/03/17 03:49 - Labs Result Diagrams: 10/03/17 02:37 10/03/17 02:37 Labs: Laboratory Results - last 24 hr 10/03/17 10/03/17 10/03/17 02:37 02:37 02:37 WBC 12.0 H D RBC 2.94 L Hgb 8.4 L Hct 25.3 L MCV 85.8 D MCH 28.6 MCHC 33.3 RDW 15.8 H Plt Count 187 MPV 8.5 Neut % (Auto) 75.6 H Lymph % (Auto) 9.6 L Morrow % (Auto) 14.0 H Eos % (Auto) 0.5 Baso % (Auto) 0.3 Neut # (Auto) 9.1 H Lymph # (Auto) 1.2 Morrow # (Auto) 1.7 H Eos # (Auto) 0.1 Baso # (Auto) 0.0 Neutrophils % (Manual) 76 H Band Neutrophils % 1 Lymphocytes % (Manual) 10 L Monocytes % (Manual) 13 H Platelet Estimate Normal Poikilocytosis (manual Slight Anisocytosis (manual) Slight PT 12.9 H INR 1.2 APTT 27 pO2 VBG pH VBG pCO2 VBG HCO3 VBG Total CO2 VBG O2 Sat (Calc) VBG Base Excess VBG Potassium Glucose Lactate Sodium 139 Potassium 3.9 Chloride 100 Carbon Dioxide 24 Anion Gap 18 BUN 33 H Creatinine 1.3 H Est GFR ( Amer) 47 Est GFR (Non-Af Amer) 39 Random Glucose 244 H Calcium 8.8 Magnesium 1.8 Total Bilirubin 0.4 AST 16 ALT 19 Alkaline Phosphatase 94 Troponin I 0.0340 Total Protein 7.7 Albumin 3.9 Globulin 3.7 Albumin/Globulin Ratio 1.0 Venous Blood Potassium Influenza Typ A,B (EIA) 10/03/17 10/03/17 02:40 02:47 WBC RBC Hgb Hct MCV MCH MCHC RDW Plt Count MPV Neut % (Auto) Lymph % (Auto) [place] % (Auto) Eos % (Auto) Baso % (Auto) Neut # (Auto) Lymph # (Auto) Morrow # (Auto) Eos # (Auto) Baso # (Auto) Neutrophils % (Manual) Band Neutrophils % Lymphocytes % (Manual) Monocytes % (Manual) Platelet Estimate Poikilocytosis (manual Anisocytosis (manual) PT INR APTT pO2 24 L VBG pH 7.36 VBG pCO2 45 VBG HCO3 23.0 VBG Total CO2 26.8 VBG O2 Sat (Calc) 51.1 VBG Base Excess -0.4 L VBG Potassium 3.8 Glucose 244 H Lactate 1.2 Sodium 137.0 Potassium Chloride 101.0 Carbon Dioxide Anion Gap BUN Creatinine Est GFR ( Amer) Est GFR (Non-Af Amer) Random Glucose Calcium Magnesium Total Bilirubin AST ALT Alkaline Phosphatase Troponin I Total Protein Albumin Globulin Albumin/Globulin Ratio Venous Blood Potassium 3.8 Influenza Typ A,B (EIA) Negative for flu a/b Assessment & Plan (1) Sepsis Assessment and Plan: Meets SIRS criteria with suspected pulmonary infection Flu swab NEGATIVE CXR - F/U official read F/U Blood Cx, Urine Cx, Sputum Cx F/U Urinalysis NS bolus 1L NS @ 100cc/hr Zosyn 3.375g IVP Q6H started 10/03/17 (if Cr does not improve after fluids then might have to renal dose zosyn) Tamiflu 75mg PO BID Status: Acute Priority: High (2) Renal failure Assessment and Plan: On admission BUN 33 Cr 1.3 NS Bolus 1L NS 100cc/hr Monitor for improvement Status: Acute Priority: High (3) COPD (chronic obstructive pulmonary disease) Assessment and Plan: Complains of SOB. Saturating well on RA. Duoneb 3ml INH Q6H Status: Chronic Priority: Medium (4) Anemia Assessment and Plan: Chronically anemic Monitor for drops in Hgb Cont home ferrous sulfate 325mg PO QD Status: Acute (5) Chest pain Assessment and Plan: Reproducible, worse with cough Troponin NEGATIVE EKG interpreted by ED attending - Sinus Rhythm (95), L BBB, Nonspecific Changes (unchanged from 07/01/17 or 03/20/17) Unlikely etiology related to ACS Status: Acute (6) Diabetes mellitus Assessment and Plan: Accuchecks ISS - low dose Hypoglycemia protocol HgbA1C in 06/22 was 9.2 Status: Acute (7) CAD (coronary artery disease) Assessment and Plan: Cardiac cath 02/2016 with 2x stents Cont home ASA 81mg PO QD Cont home Plavix 75mg PO QD Status: Chronic Priority: High (8) Hypertension Assessment and Plan: BP currently borderline low Will hold off starting home BP meds for now Monitor Status: Chronic Priority: Medium (9) Prophylactic measure Assessment and Plan: SCDs, Lovenox 30mg SC QD Pepcid 20mg PO QD Heart healthy diet Status: Acute <VidalJose joel Linda - Last Filed: 10/03/17 06:35> Results - Vital Signs Recent Vital Signs: Last Vital Signs Temp 100.2 F H 10/03/17 03:49 Pulse 105 H 10/03/17 03:49 Resp 18 10/03/17 03:49 BP 100/50 L 10/03/17 03:49 Pulse Ox 96 10/03/17 04:58 - Labs Result Diagrams: 10/03/17 02:37 10/03/17 02:37 Labs: Laboratory Results - last 24 hr 10/03/17 10/03/17 10/03/17 02:37 02:37 02:37 WBC 12.0 H D RBC 2.94 L Hgb 8.4 L Hct 25.3 L MCV 85.8 D MCH 28.6 MCHC 33.3 RDW 15.8 H Plt Count 187 MPV 8.5 Neut % (Auto) 75.6 H Lymph % (Auto) 9.6 L [place] % (Auto) 14.0 H Eos % (Auto) 0.5 Baso % (Auto) 0.3 Neut # (Auto) 9.1 H Lymph # (Auto) 1.2 [place] # (Auto) 1.7 H Eos # (Auto) 0.1 Baso # (Auto) 0.0 Neutrophils % (Manual) 76 H Band Neutrophils % 1 Lymphocytes % (Manual) 10 L Monocytes % (Manual) 13 H Platelet Estimate Normal Poikilocytosis (manual Slight Anisocytosis (manual) Slight PT 12.9 H INR 1.2 APTT 27 pO2 VBG pH VBG pCO2 VBG HCO3 VBG Total CO2 VBG O2 Sat (Calc) VBG Base Excess VBG Potassium Glucose Lactate Sodium 139 Potassium 3.9 Chloride 100 Carbon Dioxide 24 Anion Gap 18 BUN 33 H Creatinine 1.3 H Est GFR ( Amer) 47 Est GFR (Non-Af Amer) 39 Random Glucose 244 H Calcium 8.8 Magnesium 1.8 Total Bilirubin 0.4 AST 16 ALT 19 Alkaline Phosphatase 94 Troponin I 0.0340 Total Protein 7.7 Albumin 3.9 Globulin 3.7 Albumin/Globulin Ratio 1.0 Venous Blood Potassium Influenza Typ A,B (EIA) 10/03/17 10/03/17 02:40 02:47 WBC RBC Hgb Hct MCV MCH MCHC RDW Plt Count MPV Neut % (Auto) Lymph % (Auto) [place] % (Auto) Eos % (Auto) Baso % (Auto) Neut # (Auto) Lymph # (Auto) [place] # (Auto) Eos # (Auto) Baso # (Auto) Neutrophils % (Manual) Band Neutrophils % Lymphocytes % (Manual) Monocytes % (Manual) Platelet Estimate Poikilocytosis (manual Anisocytosis (manual) PT INR APTT pO2 24 L VBG pH 7.36 VBG pCO2 45 VBG HCO3 23.0 VBG Total CO2 26.8 VBG O2 Sat (Calc) 51.1 VBG Base Excess -0.4 L VBG Potassium 3.8 Glucose 244 H Lactate 1.2 Sodium 137.0 Potassium Chloride 101.0 Carbon Dioxide Anion Gap BUN Creatinine Est GFR ( Amer) Est GFR (Non-Af Amer) Random Glucose Calcium Magnesium Total Bilirubin AST ALT Alkaline Phosphatase Troponin I Total Protein Albumin Globulin Albumin/Globulin Ratio Venous Blood Potassium 3.8 Influenza Typ A,B (EIA) Negative for flu a/b Assessment & Plan - Date & Time Date: 10/03/17 (I have seen and examined the patient. I agree with the findings and plan of care as documented by Dr. Love. Patient with pneumonia. Fits SIRS criteria. Check sputum and blood cultures. Zosyn. Will have to monitor renal function due to some renal insufficiency. Give IVF and recheck renal function. Monitor for acute changes.) Time: 06:31 Attending/Attestation - Attestation I have personally seen and examined this patient.: Yes I have fully participated in the care of the patient.: Yes I have reviewed all pertinent clinical information: Yes
[2017-10-03] MEDS ORDERED: Sodium Chloride 0.9% 1,000 ML IV ONE (05:30)
[2017-10-03] MEDS: Piperacillin/Tazobact 3.375 GM in Sodium Chloride 100 ML IVPB SCH ×2 (05:38→12:59)
[2017-10-03] MEDS ORDERED: Glucagon Recombinant 1 mg Inj IM PRN (05:46)
[2017-10-03] MEDS ORDERED: Dextrose 50% SYRINGE Inj (50 ml) IV PRN (05:46)
[2017-10-03] MEDS: Sodium Chloride 0.9% 1,000 ML IV SCH ×2 (06:40→15:30)
[2017-10-03] MEDS ORDERED: Promethazine/Cod 6.25mg-10mg/5ml Syr UD PO STA (07:13)
[2017-10-03 07:14] LABS: SQUAMOUS EPITHIAL 1 /hpf (0-5); URINE BACTERIA RARE (<OCC); URINE BILIRUBIN NEGATIVE (NEGATIVE); URINE BLOOD 1+ (NEGATIVE); URINE CLARITY Clear (Clear); URINE COLOR Straw (YELLOW); URINE GLUCOSE (UA) 3+ mg/dL (Normal); URINE HYALINE CAST 0-2 /lpf (0-2); URINE LEUKOCYTE ESTERASE NEG Leu/uL (Negative); URINE NITRATE NEGATIVE (NEGATIVE); URINE PROTEIN 1+ mg/dL (NEGATIVE); URINE UROBILINOGEN NORMAL mg/dL (0.2-1.0)
[2017-10-03] MEDS ORDERED: Promethazine/Cod 6.25mg-10mg/5ml Syr UD ONE (07:17)
--- NOTE | 2017-10-03 07:42 | RAD ---
PROCEDURE: CHEST RADIOGRAPH, 1 VIEW HISTORY: SOB COMPARISON: Frontal chest radiograph 07/01/2017. FINDINGS: LUNGS: No acute infiltrate identified bilaterally. PLEURA: No pneumothorax or pleural fluid seen. CARDIOVASCULAR: Prominent cardiac silhouette appears stable. No pulmonary vascular derangement identified. OSSEOUS STRUCTURES: No significant abnormalities. VISUALIZED UPPER ABDOMEN: Normal. OTHER FINDINGS: None. IMPRESSION: No interval acute cardiopulmonary disease appreciated. Stable appearing prominent cardiac silhouette.
[2017-10-03] MEDS ORDERED: (Novolog) Insulin Aspart, Recombinant 100 u/ml 10 ml vial ONE ×2 (08:30→13:07)
[2017-10-03] MEDS: (Novolog) Insulin Aspart, Recombinant 100 u/ml 10 ml vial SC SCH ×4 (08:32→21:29)
[2017-10-03] MEDS: Albuterol-Ipratrop 3 mg / 0.5 (3 ml) UD INH SCH ×2 (08:32→21:04)
[2017-10-03] MEDS ORDERED: Enoxaparin 40 mg Syringe SC SCH (10:00)
[2017-10-03] MEDS ORDERED: Promethazine/Cod 6.25mg-10mg/5ml Syr UD PO PRN (10:17)
[2017-10-03] MEDS ORDERED: Enoxaparin 30 mg Syringe ONE (10:19)
[2017-10-03 17:05] VITALS: RESP 20
--- NOTE | 2017-10-03 18:03 | CP.PCM.PN ---
<Jerry Conner E - Last Filed: 10/03/17 19:03> Subjective - Date & Time of Evaluation Date of Evaluation: 10/03/17 Time of Evaluation: 07:55 - Subjective Subjective: Medicine progress note ( Dr. Huston's service) Patient was seen and examined in the ED. Patient reports that she does not feel well with non-productive cough. Patient admits to chest pain secondary to cough , chills, fever but denies SOB, palpitations, nausea, vomiting, abdominal pain, diarrhea. Objective - Vital Signs/Intake and Output Vital Signs (last 24 hours): Temp Pulse Resp BP Pulse Ox 98.4 F 78 20 115/64 95 10/03/17 16:00 10/03/17 16:00 10/03/17 16:00 10/03/17 16:00 10/03/17 16:00 - Medications Medications: Current Medications Albuterol/Ipratropium (Duoneb 3 Mg/0.5 Mg (3 Ml) Ud) 3 ml INH RQ6 [facility] Last Admin: 10/03/17 08:32 Dose: 3 ml Aspirin (Ecotrin) 81 mg PO DAILY [facility] Last Admin: 10/03/17 10:21 Dose: 81 mg Clopidogrel Bisulfate (Plavix) 75 mg PO DAILY [facility] Last Admin: 10/03/17 10:22 Dose: 75 mg Dextrose (Dextrose 50% Inj) 0 ml IV STAT PRN; Protocol PRN Reason: Hypoglycemia Protocol Dextrose (Glutose 15) 0 gm PO ONCE PRN; Protocol PRN Reason: Hypoglycemia Protocol Enoxaparin Sodium (Lovenox) 30 mg SC DAILY [facility] Last Admin: 10/03/17 10:22 Dose: 30 mg Famotidine (Pepcid) 20 mg PO DAILY [facility] Last Admin: 10/03/17 10:22 Dose: 20 mg Ferrous Sulfate (Feosol) 325 mg PO DAILY [facility] Last Admin: 10/03/17 10:21 Dose: 325 mg Glucagon (Glucagen Diagnostic Kit) 0 mg IM STAT PRN; Protocol PRN Reason: Hypoglycemia Protocol Sodium Chloride (Sodium Chloride 0.9%) 1,000 mls @ 100 mls/hr IV .Q10H [facility] Last Admin: 10/03/17 15:30 Dose: 100 mls/hr Dextrose (Dextrose 5% In Water 1000 Ml) 1,000 mls @ 0 mls/hr IV .Q0M PRN; Protocol; Per Protocol PRN Reason: Hypoglycemia Protocol Piperacillin Sod/Tazobactam Sod (Zosyn 2.25 Gm Iv Premix) 2.25 gm in 50 mls @ 100 mls/hr IVPB Q8H [facility] Insulin Aspart (Novolog) 0 unit SC ACHS [facility] PRN Reason: Protocol Last Admin: 10/03/17 17:28 Dose: Not Given Insulin Glargine (Lantus) 15 unit SC HS [facility] Oseltamivir Phosphate (Tamiflu Susp) 30 mg PO DAILY [facility] Promethazine HCl/Codeine (Phenergan/Codeine Oral Syrup) 5 ml PO Q4 PRN PRN Reason: Cough Last Admin: 10/03/17 17:25 Dose: 5 ml - Labs Labs: 10/03/17 02:37 10/03/17 02:37 PT 12.9 SECONDS (9.7-12.2) H 10/03/17 02:37 INR 1.2 10/03/17 02:37 APTT 27 SECONDS (21-34) 10/03/17 02:37 - Constitutional Appears: Well, No Acute Distress - Head Exam Head Exam: ATRAUMATIC, NORMAL INSPECTION - Eye Exam Eye Exam: EOMI, Normal appearance - ENT Exam ENT Exam: Mucous Membranes Dry - Respiratory Exam Respiratory Exam: Clear to Ausculation Bilateral, NORMAL BREATHING PATTERN. absent: Rhonchi, Wheezes, Respiratory Distress - GI/Abdominal Exam GI & Abdominal Exam: Soft, Normal Bowel Sounds. absent: Firm, Guarding, Rigid, Tenderness - Extremities Exam Extremities Exam: Normal Inspection. absent: Calf Tenderness - Back Exam Back Exam: NORMAL INSPECTION - Neurological Exam Neurological Exam: Alert, Awake, Oriented x3 - Psychiatric Exam Psychiatric exam: Normal Affect - Skin Skin Exam: Normal Color Assessment and Plan (1) SIRS (systemic inflammatory response syndrome) Assessment & Plan: Tmax: 103.3, WBC: 12.0 UA: Negative Rapid flu: negative Awaiting urine culture and blood culture Imaging: Chest X-ray (10/03/17): No interval acute cardiopulmonary disease appreciated. Stable appearing prominent cardiac silhouette. Medications: * Tylenol 650mg PO Q6 PRN for fever>100.4 * NS @ 100mls/hr * Zosyn 2.275gm IV Q8H (started 10/03/17) * Tamiflu 30mg PO daily (started 10/03/17) Status: Acute (2) Cough Assessment & Plan: Imaging: Chest X-ray (10/03/17): No interval acute cardiopulmonary disease appreciated. Stable appearing prominent cardiac silhouette. Medications: * Promethazine 5ml PO Q4 PRN * Albuterol 3ml INH RQ6H Status: Acute (3) Acute kidney injury Assessment & Plan: On admission BUN 33 Cr 1.3 NS 100cc/hr Monitor for improvement Status: Chronic (4) COPD with acute exacerbation Assessment & Plan: Duoneb 3ml INH Q6H Status: Chronic (5) Anemia Assessment & Plan: Chronically anemic Monitor H/H Continue home ferrous sulfate 325mg PO QD Status: Acute (6) Acute chest pain Assessment & Plan: Reproducible, worse with cough Troponin NEGATIVE EKG interpreted by ED attending - Sinus Rhythm (95), L BBB, Nonspecific Changes (unchanged from 07/01/17 or 03/20/17) Unlikely etiology related to ACS Status: Acute (7) Diabetes mellitus Assessment & Plan: HgbA1C in 06/22 was 9.2 Accuchecks ISS - low dose Lantus 15units HS Hypoglycemia protocol Status: Chronic (8) CAD (coronary artery disease) Assessment & Plan: Cardiac cath 02/2016 with 2x stents Cont home ASA 81mg PO QD Cont home Plavix 75mg PO QD Status: Chronic (9) Hypertension Assessment & Plan: BP currently borderline low Will hold off starting home BP meds for now Monitor Status: Chronic (10) Prophylactic measure Assessment & Plan: SCDs, Lovenox 30mg SC QD Pepcid 20mg PO QD Heart healthy diet All plans and management discussed with Dr. Huston Status: Acute <Dori Huston - Last Filed: 10/06/17 11:32> Objective - Vital Signs/Intake and Output Vital Signs (last 24 hours): Temp Pulse Resp BP Pulse Ox 98.8 F 79 20 146/72 100 10/06/17 08:08 10/06/17 08:08 10/06/17 08:08 10/06/17 08:08 10/06/17 08:08 Intake and Output: 10/06/17 10/06/17 06:59 18:59 Intake Total 1845 Balance 1845 - Medications Medications: Current Medications Albuterol/Ipratropium (Duoneb 3 Mg/0.5 Mg (3 Ml) Ud) 3 ml INH RQ6 [facility] Last Admin: 10/06/17 08:22 Dose: 3 ml Aspirin (Ecotrin) 81 mg PO DAILY [facility] Last Admin: 10/06/17 10:14 Dose: 81 mg Dextrose (Dextrose 50% Inj) 0 ml IV STAT PRN; Protocol PRN Reason: Hypoglycemia Protocol Dextrose (Glutose 15) 0 gm PO ONCE PRN; Protocol PRN Reason: Hypoglycemia Protocol Enoxaparin Sodium (Lovenox) 30 mg SC DAILY [facility] Last Admin: 10/06/17 10:14 Dose: 30 mg Famotidine (Pepcid) 20 mg PO DAILY [facility] Last Admin: 10/06/17 10:14 Dose: 20 mg Ferrous Sulfate (Feosol) 325 mg PO TID [facility] Last Admin: 10/06/17 10:14 Dose: 325 mg Glucagon (Glucagen Diagnostic Kit) 0 mg IM STAT PRN; Protocol PRN Reason: Hypoglycemia Protocol Piperacillin Sod/Tazobactam Sod (Zosyn 2.25 Gm Iv Premix) 2.25 gm in 50 mls @ 100 mls/hr IVPB Q8H [facility] Last Admin: 10/06/17 04:04 Dose: 100 mls/hr Sodium Chloride (Sodium Chloride 0.9%) 1,000 mls @ 70 mls/hr IV .[id number] [facility] Last Admin: 10/06/17 04:04 Dose: 70 mls/hr Insulin Aspart (Novolog) 0 unit SC ACHS [facility] PRN Reason: Protocol Last Admin: 10/06/17 08:26 Dose: 1 unit Insulin Glargine (Lantus) 15 unit SC [facility] Last Admin: 10/05/17 21:30 Dose: Not Given Polyethylene Glycol (Miralax) 17 gm PO HS [facility] Last Admin: 10/05/17 21:29 Dose: 17 gm Promethazine HCl/Codeine (Phenergan/Codeine Oral Syrup) 5 ml PO Q4 PRN PRN Reason: Cough Last Admin: 10/03/17 17:25 Dose: 5 ml Rosuvastatin Calcium (Crestor) 10 mg PO [facility] Last Admin: 10/05/17 21:29 Dose: 10 mg - Labs Labs: 10/06/17 08:18 10/06/17 08:18 PT 12.9 SECONDS (9.7-12.2) H 10/03/17 02:37 INR 1.2 10/03/17 02:37 APTT 27 SECONDS (21-34) 10/03/17 02:37 Attending/Attestation - Attestation I have personally seen and examined this patient.: Yes I have fully participated in the care of the patient.: Yes I have reviewed all pertinent clinical information, including history, physical exam and plan: Yes Notes (Text): Patient was seen and examined No complain,feels better,continue antibiotics,follow cultures.PT evaluation' Anemia work up. d/w Primary care Dr Mitchell I agree with the documentation of the resident's assessment and the plan
[2017-10-03] MEDS: Piperacill/Tazo 2.25gm in Dex 2.25 GM/50 ML BAG IVPB SCH (21:30)
[2017-10-03] MEDS: (Lantus) Insulin Glargine, Recombinant SC SCH (21:30)
[2017-10-04] MEDS: Albuterol-Ipratrop 3 mg / 0.5 (3 ml) UD INH SCH ×4 (02:11→20:59)
[2017-10-04] MEDS: Sodium Chloride 0.9% 1,000 ML IV SCH ×2 (02:24→12:30)
[2017-10-04] MEDS: Piperacill/Tazo 2.25gm in Dex 2.25 GM/50 ML BAG IVPB SCH ×3 (05:25→21:53)
[2017-10-04 07:45] LABS: BASO # 0.1 K/uL (0.0-0.2); BASO % 0.5 % (0.0-2.0); EOS # 0.4 K/uL (0.0-0.7); EOS % 4.3 % (0.0-4.0); HEMOGLOBIN 7.5 g/dL (11.0-16.0); LYMPH # 1.7 K/uL (1.0-4.3); LYMPH % 17.3 % (20.0-40.0); MEAN CELL VOLUME 85.9 fL (81.0-99.0); MEAN CORPUSCULAR HEMOGLOBIN 28.9 pg (27.0-31.0); MEAN CORPUSCULAR HGB CONC 33.6 g/dL (33.0-37.0); MEAN PLATELET VOLUME 8.3 fL (7.2-11.7); MONO # 1.4 K/uL (0.0-0.8); MONO % 13.8 % (0.0-10.0); NEUT # 6.3 K/uL (1.8-7.0); NEUT % 64.1 % (50.0-75.0); NRBC % 0.1 % (0.0-2.0); RBC 2.61 Mil/uL (3.80-5.20); RED CELL DISTRIBUTION WIDTH 15.6 % (11.5-14.5); WHITE BLOOD COUNT 9.9 K/uL (4.8-10.8)
[2017-10-04] MEDS: (Novolog) Insulin Aspart, Recombinant 100 u/ml 10 ml vial SC SCH ×4 (08:19→21:53)
--- NOTE | 2017-10-04 08:53 | CP.PCM.CON ---
<Pranav Rivero - Last Filed: 10/04/17 09:00> History of Present Illness - History of Present Illness History of Present Illness: PGY5 GI Fellow Consult Note Patient is an 86yo female with PMHx significant for CAD s/p PCIx2 on Plavix, HTN , DM, COPD, anxiety who presented to the hospital with nonproductive cough and generalized malaise for approximately one week prior to arrival. Our service has been consulted to evaluation the patient's ongoing anemia. She has been coughing significantly for several days [employer] and has since developed myalgias, particularly in the chest. On admission patient was noted to have HGB of 8.4, down from her baseline which is approximately 9-10. The patient admits to some intermittent epigastric discomfort after meals and is using Nexium sporadically at home. Separately she admits to dark black stool for several months. She cannot confirm or deny use of Iron supplementation at home, though this is listed on her medication reconciliation. She does not have any overt bleeding. Patient denies any nausea, vomiting, weight loss, hematochezia. She had EGD/ colonoscopy in December 2016 which showed diverticulosis and a hiatal hernia. PMHx: See HPI PSHx: Hysterectomy. cataracts, PCI x2 (02/2016) FHx: Discussed with patient and no pertinent family hx noted Social: Former smoker - 50 pack years, no EtOH or illicit drug use 12 system ROS performed and negative except where stated above. Past Patient History - Infectious Disease Hx of Infectious Diseases: None - Tetanus Immunizations Tetanus Immunization: Unknown - Past Medical History & Family History Past Medical History?: Yes - Past Social History Smoking Status: Never Smoked - CARDIAC Hx Hypercholesterolemia: Yes Hx Hypertension: Yes - PULMONARY Hx Asthma: Yes Hx Chronic Obstructive Pulmonary Disease (COPD): Yes - NEUROLOGICAL Hx Seizures: No - HEENT Hx HEENT Problems: Yes Hx Cataracts: Yes (right eye) Hx Glaucoma: Yes (left eye) Other/Comment: [place] LEFT EAR - RENAL Hx Chronic Kidney Disease: No - HEMATOLOGICAL/ONCOLOGICAL Hx Anemia: Yes - INTEGUMENTARY Hx Dermatological Problems: No - MUSCULOSKELETAL/RHEUMATOLOGICAL Hx Arthritis: Yes Hx Falls: Yes Hx Fractures: Yes (left wrist AND RT. HIP) Hx Osteoporosis: Yes Hx Rheumatoid Arthritis: Yes - GASTROINTESTINAL Hx Gastritis: Yes - GENITOURINARY/GYNECOLOGICAL Hx Genitourinary Disorders: Yes Other/Comment: fibroid surgery - PSYCHIATRIC Hx Anxiety: Yes Hx Substance Use: No - SURGICAL HISTORY Hx Coronary Stent: Yes (cad cath 02/2016 with stent) - ANESTHESIA Hx Anesthesia: Yes Hx Anesthesia Reactions: No Hx Malignant Hyperthermia: No Meds Allergies/Adverse Reactions: Allergies Allergy/AdvReac Type Severity Reaction Status Date / Time No Known Allergies Allergy Verified 10/03/17 02:16 - Medications Medications: Current Medications Albuterol/Ipratropium (Duoneb 3 Mg/0.5 Mg (3 Ml) Ud) 3 ml INH RQ6 [facility] Last Admin: 10/04/17 07:23 Dose: 3 ml Aspirin (Ecotrin) 81 mg PO DAILY [facility] Last Admin: 10/03/17 10:21 Dose: 81 mg Clopidogrel Bisulfate (Plavix) 75 mg PO DAILY [facility] Last Admin: 10/03/17 10:22 Dose: 75 mg Dextrose (Dextrose 50% Inj) 0 ml IV STAT PRN; Protocol PRN Reason: Hypoglycemia Protocol Dextrose (Glutose 15) 0 gm PO ONCE PRN; Protocol PRN Reason: Hypoglycemia Protocol Enoxaparin Sodium (Lovenox) 30 mg SC DAILY [facility] Last Admin: 10/03/17 10:22 Dose: 30 mg Famotidine (Pepcid) 20 mg PO DAILY [facility] Last Admin: 10/03/17 10:22 Dose: 20 mg Ferrous Sulfate (Feosol) 325 mg PO DAILY [facility] Last Admin: 10/03/17 10:21 Dose: 325 mg Glucagon (Glucagen Diagnostic Kit) 0 mg IM STAT PRN; Protocol PRN Reason: Hypoglycemia Protocol Sodium Chloride (Sodium Chloride 0.9%) 1,000 mls @ 100 mls/hr IV .Q10H [facility] Last Admin: 10/04/17 02:24 Dose: 100 mls/hr Dextrose (Dextrose 5% In Water 1000 Ml) 1,000 mls @ 0 mls/hr IV .Q0M PRN; Protocol; Per Protocol PRN Reason: Hypoglycemia Protocol Piperacillin Sod/Tazobactam Sod (Zosyn 2.25 Gm Iv Premix) 2.25 gm in 50 mls @ 100 mls/hr IVPB Q8H [facility] Last Admin: 10/04/17 05:25 Dose: 100 mls/hr Insulin Aspart (Novolog) 0 unit SC ACHS [facility] PRN Reason: Protocol Last Admin: 10/04/17 08:19 Dose: 1 unit Insulin Glargine (Lantus) 15 unit SC HS [facility] Last Admin: 10/03/17 21:30 Dose: 15 u Oseltamivir Phosphate (Tamiflu Susp) 30 mg PO DAILY [facility] Promethazine HCl/Codeine (Phenergan/Codeine Oral Syrup) 5 ml PO Q4 PRN PRN Reason: Cough Last Admin: 10/03/17 17:25 Dose: 5 ml Physical Exam - Constitutional Appears: Non-toxic, No Acute Distress - Eye Exam Eye Exam: EOMI, PERRL - ENT Exam ENT Exam: Mucous Membranes Moist - Respiratory Exam Respiratory Exam: Clear to Auscultation Bilateral. absent: Rales, Rhonchi, Wheezes - Cardiovascular Exam Cardiovascular Exam: RRR, +S1, +S2 - GI/Abdominal Exam GI & Abdominal Exam: Normal Bowel Sounds, Soft. absent: Distended, Firm, Guarding, Hernia, Organomegaly, Rigid, Tenderness - Rectal Exam Rectal Exam: Fecal Impaction. absent: Black Stool, Bloody Stool, Hemorrhoids Additional comments: formed light brown stool in rectal vault - Extremities Exam Extremities exam: Positive for: normal inspection. Negative for: pedal edema - Neurological Exam Neurological exam: Alert, Oriented x3 - Psychiatric Exam Psychiatric exam: Anxious, Normal Affect - Skin Skin Exam: Dry, Warm Results - Vital Signs Recent Vital Signs: Last Vital Signs Temp 98.0 F 10/04/17 08:02 Pulse 80 10/04/17 08:02 Resp 20 10/04/17 08:02 BP 108/49 L 10/04/17 08:02 Pulse Ox 95 10/04/17 08:02 - Labs Result Diagrams: 10/04/17 07:19 10/03/17 02:37 Labs: Laboratory Results - last 24 hr 10/03/17 10/03/17 10/03/17 07:15 13:02 16:06 WBC RBC Hgb Hct MCV MCH MCHC RDW Plt Count MPV Neut % (Auto) Lymph % (Auto) [place] % (Auto) Eos % (Auto) Baso % (Auto) Neut # (Auto) Lymph # (Auto) [place] # (Auto) Eos # (Auto) Baso # (Auto) POC Glucose (mg/dL) 362 H 218 H 153 H 10/03/17 10/04/17 10/04/17 21:18 07:18 07:19 WBC 9.9 RBC 2.61 L Hgb 7.5 L Hct 22.4 L MCV 85.9 MCH 28.9 MCHC 33.6 RDW 15.6 H Plt Count 197 MPV 8.3 Neut % (Auto) 64.1 Lymph % (Auto) 17.3 L [place] % (Auto) 13.8 H Eos % (Auto) 4.3 H Baso % (Auto) 0.5 Neut # (Auto) 6.3 Lymph # (Auto) 1.7 [place] # (Auto) 1.4 H Eos # (Auto) 0.4 Baso # (Auto) 0.1 POC Glucose (mg/dL) 289 H 160 H Assessment & Plan - Assessment and Plan (Free Text) Assessment: Patient is an 86yo female with PMHx significant for CAD s/p PCIx2 on Plavix, HTN , DM, COPD, anxiety who presented to the hospital with nonproductive cough and generalized malaise for approximately one week prior to arrival. Our service has been consulted to evaluation the patient's ongoing anemia. -Chronic normocytic anemia -CAD on plavix -CKD -COPD -HTN -DM -Constipation -H/O Diverticulosis -H/O hiatal hernia Plan: -Pt last underwent EGD/colonoscopy in 12/2016 -Consider repeating both tests as an outpatient given ongoing anemia -Consider hemtologic work up of anemia -Iron supplementation recommended -Consider outpatient CT of the A/P with PO/IV contrast -Augment fiber/water intake -Start Miralax 17g PO QD - Date & Time Date: 10/04/17 Time: 06:30 <Raad Lozano Y - Last Filed: 10/04/17 13:38> Meds - Medications Medications: Current Medications Albuterol/Ipratropium (Duoneb 3 Mg/0.5 Mg (3 Ml) Ud) 3 ml INH RQ6 [facility] Last Admin: 10/04/17 13:29 Dose: Not Given Aspirin (Ecotrin) 81 mg PO DAILY [facility] Last Admin: 10/04/17 11:00 Dose: 81 mg Clopidogrel Bisulfate (Plavix) 75 mg PO DAILY [facility] Last Admin: 10/04/17 11:00 Dose: 75 mg Dextrose (Dextrose 50% Inj) 0 ml IV STAT PRN; Protocol PRN Reason: Hypoglycemia Protocol Dextrose (Glutose 15) 0 gm PO ONCE PRN; Protocol PRN Reason: Hypoglycemia Protocol Enoxaparin Sodium (Lovenox) 30 mg SC DAILY [facility] Last Admin: 10/04/17 12:33 Dose: 30 mg Famotidine (Pepcid) 20 mg PO DAILY [facility] Last Admin: 10/04/17 11:00 Dose: 20 mg Ferrous Sulfate (Feosol) 325 mg PO TID [facility] Last Admin: 10/04/17 13:20 Dose: 325 mg Glucagon (Glucagen Diagnostic Kit) 0 mg IM STAT PRN; Protocol PRN Reason: Hypoglycemia Protocol Sodium Chloride (Sodium Chloride 0.9%) 1,000 mls @ 100 mls/hr IV .Q10H [facility] Last Admin: 10/04/17 02:24 Dose: 100 mls/hr Dextrose (Dextrose 5% In Water 1000 Ml) 1,000 mls @ 0 mls/hr IV .Q0M PRN; Protocol; Per Protocol PRN Reason: Hypoglycemia Protocol Piperacillin Sod/Tazobactam Sod (Zosyn 2.25 Gm Iv Premix) 2.25 gm in 50 mls @ 100 mls/hr IVPB Q8H [facility] Last Admin: 10/04/17 05:25 Dose: 100 mls/hr Insulin Aspart (Novolog) 0 unit SC ACHS [facility] PRN Reason: Protocol Last Admin: 10/04/17 12:29 Dose: 5 unit Insulin Glargine (Lantus) 15 unit SC HS [facility] Last Admin: 10/03/17 21:30 Dose: 15 u Polyethylene Glycol (Miralax) 17 gm PO HS [facility] Promethazine HCl/Codeine (Phenergan/Codeine Oral Syrup) 5 ml PO Q4 PRN PRN Reason: Cough Last Admin: 10/03/17 17:25 Dose: 5 ml Results - Vital Signs Recent Vital Signs: Last Vital Signs Temp 98.0 F 10/04/17 08:02 Pulse 80 10/04/17 08:02 Resp 20 10/04/17 08:02 BP 108/49 L 10/04/17 08:02 Pulse Ox 95 10/04/17 08:02 - Labs Result Diagrams: 10/04/17 07:19 10/04/17 07:19 Labs: Laboratory Results - last 24 hr 10/03/17 10/03/17 10/03/17 13:02 16:06 21:18 WBC RBC Hgb Hct MCV MCH MCHC RDW Plt Count MPV Neut % (Auto) Lymph % (Auto) [place] % (Auto) Eos % (Auto) Baso % (Auto) Neut # (Auto) Lymph # (Auto) [place] # (Auto) Eos # (Auto) Baso # (Auto) Sodium Potassium Chloride Carbon Dioxide Anion Gap BUN Creatinine Est GFR ( Amer) Est GFR (Non-Af Amer) POC Glucose (mg/dL) 218 H 153 H 289 H Random Glucose Hemoglobin A1c Calcium Phosphorus Magnesium Iron TIBC % Saturation Total Bilirubin AST ALT Alkaline Phosphatase Total Protein Albumin Globulin Albumin/Globulin Ratio 10/04/17 10/04/17 10/04/17 07:18 07:19 07:19 WBC 9.9 RBC 2.61 L Hgb 7.5 L Hct 22.4 L MCV 85.9 MCH 28.9 MCHC 33.6 RDW 15.6 H Plt Count 197 MPV 8.3 Neut % (Auto) 64.1 Lymph % (Auto) 17.3 L [place] % (Auto) 13.8 H Eos % (Auto) 4.3 H Baso % (Auto) 0.5 Neut # (Auto) 6.3 Lymph # (Auto) 1.7 [place] # (Auto) 1.4 H Eos # (Auto) 0.4 Baso # (Auto) 0.1 Sodium Potassium Chloride Carbon Dioxide Anion Gap BUN Creatinine Est GFR ( Amer) Est GFR (Non-Af Amer) POC Glucose (mg/dL) 160 H Random Glucose Hemoglobin A1c Calcium Phosphorus Magnesium Iron < 10 L TIBC 237 L % Saturation < 4.2 L Total Bilirubin AST ALT Alkaline Phosphatase Total Protein Albumin Globulin Albumin/Globulin Ratio 10/04/17 10/04/17 10/04/17 07:19 07:19 11:27 WBC RBC Hgb Hct MCV MCH MCHC RDW Plt Count MPV Neut % (Auto) Lymph % (Auto) [place] % (Auto) Eos % (Auto) Baso % (Auto) Neut # (Auto) Lymph # (Auto) [place] # (Auto) Eos # (Auto) Baso # (Auto) Sodium 142 Potassium 4.1 Chloride 107 Carbon Dioxide 23 Anion Gap 16 BUN 20 H Creatinine 1.1 Est GFR ( Amer) 57 Est GFR (Non-Af Amer) 47 POC Glucose (mg/dL) 400 H* Random Glucose 153 H Hemoglobin A1c 7.4 H Calcium 8.3 L Phosphorus 2.9 Magnesium 1.7 Iron TIBC % Saturation Total Bilirubin 0.1 L AST 17 ALT 16 Alkaline Phosphatase 77 Total Protein 6.5 Albumin 3.2 L Globulin 3.3 Albumin/Globulin Ratio 1.0 Attending/Attestation - Attestation I have personally seen and examined this patient.: Yes I have fully participated in the care of the patient.: Yes I have reviewed all pertinent clinical information: Yes Notes (Text): 10/04/17 13:31 I have seen and examined patient with GI fellow. Agree with above documentation with the following additions. In brief, this is an 86 year old female with history of CAD s/p stent on plavix, DM, HTN, COPD who initially presented to hospital with complaint of dyspnea and non-productive cough for one week. She is currently being treated for COPD exacerbation. GI called for evaluation of anemia with fecal occult blood positive testing. She endorses intermittent epigastric abdominal pain during this time period which is worse after meal consumption. She otherwise denies nausea, vomiting, diarrhea, fever/ chills, weight loss, or visible rectal bleeding. She takes PPI therapy as necessary at home for dyspepsia symptoms. She had an EGD/colonoscopy in December 2016 which showed diverticulosis and hiatal hernia. Review of vitals from today are normal. CAD s/p stent on plavix DM HTN COPD - acute exacerbation Anemia, fecal occult blood positive - Diet as tolerated - Continue with PPI therapy - Continue with antibiotic therapy as per medical team - Rectal exam performed today shows soft brown stool in rectal vault without palpable lesions. H/H stable, continue to monitor and transfuse as necessary. - Patient may benefit from repeat endoscopic evaluation which should be considered as outpatient following resolution of acute pulmonary symptoms - Consider CT imaging with PO contrast for further abdominal evaluation - No current planned GI interventions, suggest outpatient follow up. Office contact information provided to patient. Will sign off case, please reconsult as necessary, thank you.
[2017-10-04 09:37] LABS: ALBUMIN 3.2 g/dL (3.5-5.0); CALCIUM 8.3 mg/dl (8.6-10.4); MAGNESIUM 1.7 mg/dL (1.6-2.3)
[2017-10-04] MEDS ORDERED: Oseltamivir 6 MG/ML PO SCH (10:00)
[2017-10-04 10:23] LABS: IRON < 10 ug/dL (37-170)
[2017-10-04 10:32] LABS: % IRON SATURATION < 4.2 (20-55)
[2017-10-04 10:37] LABS: TOTAL IRON BINDING CAPACITY 237 ug/dL (250-450)
[2017-10-04] MEDS: Enoxaparin 30 mg Syringe SC SCH (12:33)
--- NOTE | 2017-10-04 13:16 | CP.PCM.PN ---
Addendum entered and electronically signed by Jerry Conner 10/04/17 13:45: Anemia Work-up (12/06/2016): Iron: 39, TIBC: 325, %SAT: 12 and Ferritin: 9.0 Original Note: <Jerry Conner - Last Filed: 10/04/17 13:44> Subjective - Date & Time of Evaluation Date of Evaluation: 10/04/17 Time of Evaluation: 07:35 - Subjective Subjective: Medicine progress note ( Dr. Huston's service) Patient was seen and examined in the ED. Patient reports that she is doing well with improving symptoms. Patient admits to mild chest discomfort secondary to cough, but denies SOB, palpitations, nausea, vomiting, abdominal pain, diarrhea , chills and fever. Objective - Vital Signs/Intake and Output Vital Signs (last 24 hours): Temp Pulse Resp BP Pulse Ox 98.0 F 80 20 108/49 L 95 10/04/17 08:02 10/04/17 08:02 10/04/17 08:02 10/04/17 08:02 10/04/17 08:02 Intake and Output: 10/04/17 10/04/17 06:59 18:59 Intake Total 1050 Balance 1050 - Medications Medications: Current Medications Albuterol/Ipratropium (Duoneb 3 Mg/0.5 Mg (3 Ml) Ud) 3 ml INH RQ6 [facility] Last Admin: 10/04/17 07:23 Dose: 3 ml Aspirin (Ecotrin) 81 mg PO DAILY [facility] Last Admin: 10/04/17 11:00 Dose: 81 mg Clopidogrel Bisulfate (Plavix) 75 mg PO DAILY [facility] Last Admin: 10/04/17 11:00 Dose: 75 mg Dextrose (Dextrose 50% Inj) 0 ml IV STAT PRN; Protocol PRN Reason: Hypoglycemia Protocol Dextrose (Glutose 15) 0 gm PO ONCE PRN; Protocol PRN Reason: Hypoglycemia Protocol Enoxaparin Sodium (Lovenox) 30 mg SC DAILY [facility] Last Admin: 10/04/17 12:33 Dose: 30 mg Famotidine (Pepcid) 20 mg PO DAILY [facility] Last Admin: 10/04/17 11:00 Dose: 20 mg Ferrous Sulfate (Feosol) 325 mg PO TID [facility] Glucagon (Glucagen Diagnostic Kit) 0 mg IM STAT PRN; Protocol PRN Reason: Hypoglycemia Protocol Sodium Chloride (Sodium Chloride 0.9%) 1,000 mls @ 100 mls/hr IV .Q10H [facility] Last Admin: 10/04/17 02:24 Dose: 100 mls/hr Dextrose (Dextrose 5% In Water 1000 Ml) 1,000 mls @ 0 mls/hr IV .Q0M PRN; Protocol; Per Protocol PRN Reason: Hypoglycemia Protocol Piperacillin Sod/Tazobactam Sod (Zosyn 2.25 Gm Iv Premix) 2.25 gm in 50 mls @ 100 mls/hr IVPB Q8H [facility] Last Admin: 10/04/17 05:25 Dose: 100 mls/hr Insulin Aspart (Novolog) 0 unit SC ACHS [facility] PRN Reason: Protocol Last Admin: 10/04/17 12:29 Dose: 5 unit Insulin Glargine (Lantus) 15 unit SC HS [facility] Last Admin: 10/03/17 21:30 Dose: 15 u Polyethylene Glycol (Miralax) 17 gm PO HS [facility] Promethazine HCl/Codeine (Phenergan/Codeine Oral Syrup) 5 ml PO Q4 PRN PRN Reason: Cough Last Admin: 10/03/17 17:25 Dose: 5 ml - Labs Labs: 10/04/17 07:19 10/04/17 07:19 PT 12.9 SECONDS (9.7-12.2) H 10/03/17 02:37 INR 1.2 10/03/17 02:37 APTT 27 SECONDS (21-34) 10/03/17 02:37 - Constitutional Appears: Well, No Acute Distress - Eye Exam Eye Exam: EOMI, Normal appearance - ENT Exam ENT Exam: Mucous Membranes Moist - Respiratory Exam Respiratory Exam: Clear to Ausculation Bilateral, NORMAL BREATHING PATTERN. absent: Rhonchi, Wheezes, Respiratory Distress - Cardiovascular Exam Cardiovascular Exam: REGULAR RHYTHM, +S1, +S2, Murmur - GI/Abdominal Exam GI & Abdominal Exam: Soft, Normal Bowel Sounds. absent: Distended, Firm, Guarding, Rigid, Tenderness - Extremities Exam Extremities Exam: Normal Inspection. absent: Calf Tenderness, Pedal Edema - Neurological Exam Neurological Exam: Alert, Awake, Oriented x3 - Psychiatric Exam Psychiatric exam: Normal Affect - Skin Skin Exam: Normal Color Assessment and Plan (1) SIRS (systemic inflammatory response syndrome) Assessment & Plan: Tmax: 103.3, WBC: 12.0 on admission * without fever < 24 hours * WBC trending down UA: Negative Rapid flu: negative Blood Culture: Negative x 24 hours Awaiting urine culture Imaging: Chest X-ray (10/03/17): No interval acute cardiopulmonary disease appreciated. Stable appearing prominent cardiac silhouette. Medications: * Tylenol 650mg PO Q6 PRN for fever>100.4 * NS @ 100mls/hr * Zosyn 2.275gm IV Q8H (started 10/03/17) * Tamiflu 30mg PO daily (started 10/03/17) ---> discontinued 10/04/17 Status: Acute (2) Cough Assessment & Plan: Chest X-ray (10/03/17): No interval acute cardiopulmonary disease appreciated. Stable appearing prominent cardiac silhouette. Medications: * Promethazine 5ml PO Q4 PRN * Albuterol 3ml INH RQ6H Status: Resolved (3) Acute kidney injury Assessment & Plan: On admission BUN 33 Cr 1.3 NS 100cc/hr Monitor for improvement Status: Chronic (4) COPD with acute exacerbation Assessment & Plan: Duoneb 3ml INH Q6H Status: Chronic (5) Anemia Assessment & Plan: Chronically anemic Monitor H/H Continue home ferrous sulfate 325mg PO TID Continue Miralax 17gm PO HS Status: Acute (6) Acute chest pain Assessment & Plan: Reproducible, worse with cough Troponin NEGATIVE EKG interpreted by ED attending - Sinus Rhythm (95), L BBB, Nonspecific Changes (unchanged from 07/01/17 or 03/20/17) Unlikely etiology related to ACS Status: Acute (7) Diabetes mellitus Assessment & Plan: HgbA1C in 06/22 was 9.2 Hemoglobin A1C: 7.4 (10/04/17) Accuchecks ISS - low dose Lantus 15units HS Hypoglycemia protocol Status: Chronic (8) CAD (coronary artery disease) Assessment & Plan: Cardiology, Dr Hernandez---> Help appreciated * Reevaluation for the need for continuous plavix as patient has had stent placement > 2 years and has been taking plavix for 2 yrs Cardiac cath 02/2016 with 2x stents Cont home ASA 81mg PO QD Cont home Plavix 75mg PO QD Status: Chronic (9) Hypertension Assessment & Plan: BP currently borderline low Will hold off starting home BP meds for now Monitor Status: Chronic (10) Prophylactic measure Assessment & Plan: SCDs, Lovenox 30mg SC QD Pepcid 20mg PO QD Heart healthy diet All plans and management discussed with Dr. Huston Status: Acute <RobelKyriebenjiclaire - Last Filed: 10/04/17 17:28> Objective - Vital Signs/Intake and Output Vital Signs (last 24 hours): Temp Pulse Resp BP Pulse Ox 98.0 F 80 20 108/49 L 95 10/04/17 08:02 10/04/17 08:02 10/04/17 08:02 10/04/17 08:02 10/04/17 08:02 Intake and Output: 10/04/17 10/04/17 06:59 18:59 Intake Total 1050 1050 Balance 1050 1050 - Medications Medications: Current Medications Albuterol/Ipratropium (Duoneb 3 Mg/0.5 Mg (3 Ml) Ud) 3 ml INH RQ6 [facility] Last Admin: 10/04/17 13:29 Dose: Not Given Aspirin (Ecotrin) 81 mg PO DAILY [facility] Last Admin: 10/04/17 11:00 Dose: 81 mg Clopidogrel Bisulfate (Plavix) 75 mg PO DAILY [facility] Last Admin: 10/04/17 11:00 Dose: 75 mg Dextrose (Dextrose 50% Inj) 0 ml IV STAT PRN; Protocol PRN Reason: Hypoglycemia Protocol Dextrose (Glutose 15) 0 gm PO ONCE PRN; Protocol PRN Reason: Hypoglycemia Protocol Enoxaparin Sodium (Lovenox) 30 mg SC DAILY [facility] Last Admin: 10/04/17 12:33 Dose: 30 mg Famotidine (Pepcid) 20 mg PO DAILY [facility] Last Admin: 10/04/17 11:00 Dose: 20 mg Ferrous Sulfate (Feosol) 325 mg PO TID [facility] Last Admin: 10/04/17 13:20 Dose: 325 mg Glucagon (Glucagen Diagnostic Kit) 0 mg IM STAT PRN; Protocol PRN Reason: Hypoglycemia Protocol Dextrose (Dextrose 5% In Water 1000 Ml) 1,000 mls @ 0 mls/hr IV .Q0M PRN; Protocol; Per Protocol PRN Reason: Hypoglycemia Protocol Piperacillin Sod/Tazobactam Sod (Zosyn 2.25 Gm Iv Premix) 2.25 gm in 50 mls @ 100 mls/hr IVPB Q8H [facility] Last Admin: 10/04/17 14:00 Dose: 100 mls/hr Insulin Aspart (Novolog) 0 unit SC ACHS [facility] PRN Reason: Protocol Last Admin: 10/04/17 12:29 Dose: 5 unit Insulin Glargine (Lantus) 15 unit SC HS [facility] Last Admin: 10/03/17 21:30 Dose: 15 u Polyethylene Glycol (Miralax) 17 gm PO HS [facility] Promethazine HCl/Codeine (Phenergan/Codeine Oral Syrup) 5 ml PO Q4 PRN PRN Reason: Cough Last Admin: 10/03/17 17:25 Dose: 5 ml Rosuvastatin Calcium (Crestor) 10 mg PO HS [facility] - Labs Labs: 10/04/17 07:19 10/04/17 07:19 PT 12.9 SECONDS (9.7-12.2) H 10/03/17 02:37 INR 1.2 10/03/17 02:37 APTT 27 SECONDS (21-34) 10/03/17 02:37 Attending/Attestation - Attestation I have personally seen and examined this patient.: Yes I have fully participated in the care of the patient.: Yes I have reviewed all pertinent clinical information, including history, physical exam and plan: Yes Notes (Text): Seen and examined patient is feeling better. no abdominal pain ,no fever,no kymberly.Patient has history of anemia,s/p EGD and Colonoscopy. d/w GI fellow We will continue iron and follow as an out pt for further work up.Blood culture and urine culture negative x 24hrsmonitor CBC If no fever tonight possible discharge home tomorrow d/w resident I agree with the documentation of the resident's assessment and the plan
--- NOTE | 2017-10-04 19:12 | CARD ---
APPROVED REPORT EKG Measurement Heart [id number] <Conclusion> Normal sinus rhythm Left bundle branch block Abnormal ECG
--- NOTE | 2017-10-04 21:17 | CP.PCM.CON ---
History of Present Illness - History of Present Illness History of Present Illness: Admitted with anemia Plavix d/seth Hx of CAD and stents 2 years ago Past Patient History - Infectious Disease Hx of Infectious Diseases: None - Tetanus Immunizations Tetanus Immunization: Unknown - Past Medical History & Family History Past Medical History?: Yes - Past Social History Smoking Status: Never Smoked - CARDIAC Hx Hypercholesterolemia: Yes Hx Hypertension: Yes - PULMONARY Hx Asthma: Yes Hx Chronic Obstructive Pulmonary Disease (COPD): Yes - NEUROLOGICAL Hx Seizures: No - HEENT Hx HEENT Problems: Yes Hx Cataracts: Yes (right eye) Hx Glaucoma: Yes (left eye) Other/Comment: [place] LEFT EAR - RENAL Hx Chronic Kidney Disease: No - HEMATOLOGICAL/ONCOLOGICAL Hx Anemia: Yes - INTEGUMENTARY Hx Dermatological Problems: No - MUSCULOSKELETAL/RHEUMATOLOGICAL Hx Arthritis: Yes Hx Falls: Yes Hx Fractures: Yes (left wrist AND RT. HIP) Hx Osteoporosis: Yes Hx Rheumatoid Arthritis: Yes - GASTROINTESTINAL Hx Gastritis: Yes - GENITOURINARY/GYNECOLOGICAL Hx Genitourinary Disorders: Yes Other/Comment: fibroid surgery - PSYCHIATRIC Hx Anxiety: Yes Hx Substance Use: No - SURGICAL HISTORY Hx Coronary Stent: Yes (cad cath 02/2016 with stent) - ANESTHESIA Hx Anesthesia: Yes Hx Anesthesia Reactions: No Hx Malignant Hyperthermia: No Meds Allergies/Adverse Reactions: Allergies Allergy/AdvReac Type Severity Reaction Status Date / Time No Known Allergies Allergy Verified 10/03/17 02:16 - Medications Medications: Current Medications Albuterol/Ipratropium (Duoneb 3 Mg/0.5 Mg (3 Ml) Ud) 3 ml INH RQ6 [facility] Last Admin: 10/04/17 20:59 Dose: 3 ml Aspirin (Ecotrin) 81 mg PO DAILY [facility] Last Admin: 10/04/17 11:00 Dose: 81 mg Dextrose (Dextrose 50% Inj) 0 ml IV STAT PRN; Protocol PRN Reason: Hypoglycemia Protocol Dextrose (Glutose 15) 0 gm PO ONCE PRN; Protocol PRN Reason: Hypoglycemia Protocol Enoxaparin Sodium (Lovenox) 30 mg SC DAILY [facility] Last Admin: 10/04/17 12:33 Dose: 30 mg Famotidine (Pepcid) 20 mg PO DAILY [facility] Last Admin: 10/04/17 11:00 Dose: 20 mg Ferrous Sulfate (Feosol) 325 mg PO TID [facility] Last Admin: 03/01/18 17:35 Dose: 325 mg Glucagon (Glucagen Diagnostic Kit) 0 mg IM STAT PRN; Protocol PRN Reason: Hypoglycemia Protocol Dextrose (Dextrose 5% In Water 1000 Ml) 1,000 mls @ 0 mls/hr IV .Q0M PRN; Protocol; Per Protocol PRN Reason: Hypoglycemia Protocol Piperacillin Sod/Tazobactam Sod (Zosyn 2.25 Gm Iv Premix) 2.25 gm in 50 mls @ 100 mls/hr IVPB Q8H [facility] Last Admin: 10/04/17 14:00 Dose: 100 mls/hr Insulin Aspart (Novolog) 0 unit SC ACHS [facility] PRN Reason: Protocol Last Admin: 10/04/17 17:30 Dose: 1 unit Insulin Glargine (Lantus) 15 unit SC HS [facility] Last Admin: 10/03/17 21:30 Dose: 15 u Polyethylene Glycol (Miralax) 17 gm PO HS [facility] [place] Promethazine HCl/Codeine (Phenergan/Codeine Oral Syrup) 5 ml PO Q4 PRN PRN Reason: Cough Last Admin: 10/03/17 17:25 Dose: 5 ml Rosuvastatin Calcium (Crestor) 10 mg PO HS [facility] Results - Vital Signs Recent Vital Signs: Last Vital Signs Temp 99.4 F 10/04/17 16:00 Pulse 82 10/04/17 16:00 Resp 20 10/04/17 16:00 BP 131/62 10/04/17 16:00 Pulse Ox 95 10/04/17 16:00 - Labs Result Diagrams: 10/04/17 07:19 10/04/17 07:19 Labs: Laboratory Results - last 24 hr 10/03/17 10/04/17 10/04/17 21:18 07:18 07:19 WBC RBC Hgb Hct MCV MCH MCHC RDW Plt Count MPV Neut % (Auto) Lymph % (Auto) [place] % (Auto) Eos % (Auto) Baso % (Auto) Neut # (Auto) Lymph # (Auto) [place] # (Auto) Eos # (Auto) Baso # (Auto) Sodium Potassium Chloride Carbon Dioxide Anion Gap BUN Creatinine Est GFR ( Amer) Est GFR (Non-Af Amer) POC Glucose (mg/dL) 289 H 160 H Random Glucose Hemoglobin A1c Calcium Phosphorus Magnesium Iron < 10 L TIBC 237 L % Saturation < 4.2 L Total Bilirubin AST ALT Alkaline Phosphatase Total Protein Albumin Globulin Albumin/Globulin Ratio 10/04/17 10/04/17 10/04/17 07:19 07:19 07:19 WBC 9.9 RBC 2.61 L Hgb 7.5 L Hct 22.4 L MCV 85.9 MCH 28.9 MCHC 33.6 RDW 15.6 H Plt Count 197 MPV 8.3 Neut % (Auto) 64.1 Lymph % (Auto) 17.3 L [place] % (Auto) 13.8 H Eos % (Auto) 4.3 H Baso % (Auto) 0.5 Neut # (Auto) 6.3 Lymph # (Auto) 1.7 [place] # (Auto) 1.4 H Eos # (Auto) 0.4 Baso # (Auto) 0.1 Sodium 142 Potassium 4.1 Chloride 107 Carbon Dioxide 23 Anion Gap 16 BUN 20 H Creatinine 1.1 Est GFR ( Amer) 57 Est GFR (Non-Af Amer) 47 POC Glucose (mg/dL) Random Glucose 153 H Hemoglobin A1c 7.4 H Calcium 8.3 L Phosphorus 2.9 Magnesium 1.7 Iron TIBC % Saturation Total Bilirubin 0.1 L AST 17 ALT 16 Alkaline Phosphatase 77 Total Protein 6.5 Albumin 3.2 L Globulin 3.3 Albumin/Globulin Ratio 1.0 10/04/17 10/04/17 10/04/17 11:27 16:57 21:06 WBC RBC Hgb Hct MCV MCH MCHC RDW Plt Count MPV Neut % (Auto) Lymph % (Auto) [place] % (Auto) Eos % (Auto) Baso % (Auto) Neut # (Auto) Lymph # (Auto) [place] # (Auto) Eos # (Auto) Baso # (Auto) Sodium Potassium Chloride Carbon Dioxide Anion Gap BUN Creatinine Est GFR ( Amer) Est GFR (Non-Af Amer) POC Glucose (mg/dL) 400 H* 157 H 261 H Random Glucose Hemoglobin A1c Calcium Phosphorus Magnesium Iron TIBC % Saturation Total Bilirubin AST ALT Alkaline Phosphatase Total Protein Albumin Globulin Albumin/Globulin Ratio
[2017-10-04] MEDS: (Lantus) Insulin Glargine, Recombinant SC SCH (21:45)
[2017-10-04] MEDS: POLYETHYLENE GLYCOL 3350 17 GM/Dose PACKET PO SCH (21:46)
[2017-10-05] MEDS: Albuterol-Ipratrop 3 mg / 0.5 (3 ml) UD INH SCH ×4 (01:23→19:48)
[2017-10-05] MEDS: Piperacill/Tazo 2.25gm in Dex 2.25 GM/50 ML BAG IVPB SCH ×3 (04:45→21:29)
[2017-10-05 07:19] LABS: BASO % 0.6 % (0.0-2.0); EOS # 0.4 K/uL (0.0-0.7); EOS % 4.9 % (0.0-4.0); HEMOGLOBIN 7.6 g/dL (11.0-16.0); LYMPH # 1.7 K/uL (1.0-4.3); LYMPH % 22.7 % (20.0-40.0); MEAN CELL VOLUME 84.3 fL (81.0-99.0); MEAN CORPUSCULAR HEMOGLOBIN 28.4 pg (27.0-31.0); MEAN CORPUSCULAR HGB CONC 33.8 g/dL (33.0-37.0); MEAN PLATELET VOLUME 7.9 fL (7.2-11.7); MONO # 1.2 K/uL (0.0-0.8); MONO % 15.6 % (0.0-10.0); NEUT # 4.3 K/uL (1.8-7.0); NEUT % 56.2 % (50.0-75.0); RBC 2.69 Mil/uL (3.80-5.20); RED CELL DISTRIBUTION WIDTH 15.6 % (11.5-14.5); WHITE BLOOD COUNT 7.7 K/uL (4.8-10.8)
[2017-10-05] MEDS: (Novolog) Insulin Aspart, Recombinant 100 u/ml 10 ml vial SC SCH ×4 (08:58→21:20)
[2017-10-05] MEDS: Enoxaparin 30 mg Syringe SC SCH (09:47)
[2017-10-05] MEDS ORDERED: Enoxaparin 30 mg Syringe SC SCH (10:00)
[2017-10-05 10:43] LABS: ALBUMIN 3.3 g/dL (3.5-5.0); CALCIUM 8.7 mg/dl (8.6-10.4); MAGNESIUM 1.6 mg/dL (1.6-2.3)
[2017-10-05] MEDS: Sodium Chloride 0.9% 1,000 ML IV SCH (14:10)
--- NOTE | 2017-10-05 14:23 | CP.PCM.PN ---
<Jerry Conner E - Last Filed: 10/05/17 14:36> Subjective - Date & Time of Evaluation Date of Evaluation: 10/05/17 Time of Evaluation: 07:10 - Subjective Subjective: Medicine progress note---> Dr. Huston's service Patient was seen and examined in the ED. Patient reports that she is doing well with improving symptoms. Patient admits to mild chest discomfort secondary to cough, chills but denies SOB, palpitations, fever, nausea, vomiting. Patient is able to ambulate without difficulty. Objective - Vital Signs/Intake and Output Vital Signs (last 24 hours): Temp Pulse Resp BP Pulse Ox 100 F H 93 H 20 139/56 L 95 10/05/17 00:00 10/05/17 00:00 10/05/17 00:00 10/05/17 00:00 10/05/17 00:00 Intake and Output: 10/05/17 10/05/17 06:59 18:59 Intake Total 410 200 Balance 410 200 - Medications Medications: Current Medications Albuterol/Ipratropium (Duoneb 3 Mg/0.5 Mg (3 Ml) Ud) 3 ml INH RQ6 [facility] Last Admin: 10/05/17 13:40 Dose: 3 ml Aspirin (Ecotrin) 81 mg PO DAILY [facility] Last Admin: 10/05/17 09:46 Dose: 81 mg Dextrose (Dextrose 50% Inj) 0 ml IV STAT PRN; Protocol PRN Reason: Hypoglycemia Protocol Dextrose (Glutose 15) 0 gm PO ONCE PRN; Protocol PRN Reason: Hypoglycemia Protocol Enoxaparin Sodium (Lovenox) 30 mg SC DAILY [facility] Last Admin: 10/05/17 09:47 Dose: 30 mg Famotidine (Pepcid) 20 mg PO DAILY [facility] Last Admin: 10/05/17 09:46 Dose: 20 mg Ferrous Sulfate (Feosol) 325 mg PO TID [facility] Last Admin: 10/05/17 09:46 Dose: 325 mg Glucagon (Glucagen Diagnostic Kit) 0 mg IM STAT PRN; Protocol PRN Reason: Hypoglycemia Protocol Dextrose (Dextrose 5% In Water 1000 Ml) 1,000 mls @ 0 mls/hr IV .Q0M PRN; Protocol; Per Protocol PRN Reason: Hypoglycemia Protocol Piperacillin Sod/Tazobactam Sod (Zosyn 2.25 Gm Iv Premix) 2.25 gm in 50 mls @ 100 mls/hr IVPB Q8H [facility] Last Admin: 10/05/17 14:10 Dose: 100 mls/hr Sodium Chloride (Sodium Chloride 0.9%) 1,000 mls @ 70 mls/hr IV .[id number] [facility] Last Admin: 10/05/17 14:10 Dose: 70 mls/hr Insulin Aspart (Novolog) 0 unit SC ACHS [facility] PRN Reason: Protocol Last Admin: 10/05/17 14:12 Dose: Not Given Insulin Glargine (Lantus) 15 unit SC [facility] Last Admin: 10/04/17 21:45 Dose: 15 u Polyethylene Glycol (Miralax) 17 gm PO [facility] Last Admin: 10/04/17 21:46 Dose: 17 gm Promethazine HCl/Codeine (Phenergan/Codeine Oral Syrup) 5 ml PO Q4 PRN PRN Reason: Cough Last Admin: 10/03/17 17:25 Dose: 5 ml Rosuvastatin Calcium (Crestor) 10 mg PO [facility] Last Admin: 10/04/17 21:46 Dose: 10 mg - Labs Labs: 10/05/17 07:01 10/05/17 07:01 PT 12.9 SECONDS (9.7-12.2) H 10/03/17 02:37 INR 1.2 10/03/17 02:37 APTT 27 SECONDS (21-34) 10/03/17 02:37 - Constitutional Appears: Well, No Acute Distress - Head Exam Head Exam: ATRAUMATIC, NORMAL INSPECTION - Eye Exam Eye Exam: EOMI, Normal appearance - ENT Exam ENT Exam: Mucous Membranes Moist - Respiratory Exam Respiratory Exam: Clear to Ausculation Bilateral, NORMAL BREATHING PATTERN. absent: Rhonchi, Wheezes, Respiratory Distress - Cardiovascular Exam Cardiovascular Exam: REGULAR RHYTHM, +S1, +S2. absent: Murmur - GI/Abdominal Exam GI & Abdominal Exam: Soft, Normal Bowel Sounds. absent: Guarding, Rigid, Tenderness - Extremities Exam Extremities Exam: Normal Inspection. absent: Calf Tenderness, Pedal Edema - Neurological Exam Neurological Exam: Alert, Awake, Oriented x3 - Psychiatric Exam Psychiatric exam: Normal Affect - Skin Skin Exam: Normal Color Assessment and Plan (1) SIRS (systemic inflammatory response syndrome) Assessment & Plan: Tmax: 103.3, WBC: 12.0 on admission * Intermittent fever, patient will remain for observation till she is without fever * WBC trending down UA: Negative Rapid flu: negative Blood Culture: Negative x 24 hours Urine culture: Negative Imaging: Chest X-ray (10/03/17): No interval acute cardiopulmonary disease appreciated. Stable appearing prominent cardiac silhouette. Medications: * Tylenol 650mg PO Q6 PRN for fever>100.4 * NS @ 70mls/hr * Zosyn 2.275gm IV Q8H (started 10/03/17) * Tamiflu 30mg PO daily (started 10/03/17) ---> discontinued 10/04/17 Status: Acute (2) Cough Assessment & Plan: Chest X-ray (10/03/17): No interval acute cardiopulmonary disease appreciated. Stable appearing prominent cardiac silhouette. Medications: * Promethazine 5ml PO Q4 PRN * Albuterol 3ml INH RQ6H Status: Resolved (3) Acute kidney injury Assessment & Plan: Resolved On admission BUN 33 Cr 1.3 NS 70cc/hr Continue to monitor Status: Chronic (4) COPD with acute exacerbation Assessment & Plan: Duoneb 3ml INH Q6H Status: Chronic (5) Anemia Assessment & Plan: Chronically anemic Monitor H/H Continue home ferrous sulfate 325mg PO TID Continue Miralax 17gm PO HS Anemia Work-up (12/06/2016): Iron: 39, TIBC: 325, %SAT: 12 and Ferritin: 9.0 Status: Acute (6) Acute chest pain Assessment & Plan: Reproducible, worse with cough Troponin NEGATIVE EKG interpreted by ED attending - Sinus Rhythm (95), L BBB, Nonspecific Changes (unchanged from 07/01/17 or 03/20/17) Unlikely etiology related to ACS Status: Acute (7) Diabetes mellitus Assessment & Plan: HgbA1C in 06/22 was 9.2 Hemoglobin A1C: 7.4 (10/04/17) Accuchecks ISS - low dose Lantus 15units HS Hypoglycemia protocol Status: Chronic (8) CAD (coronary artery disease) Assessment & Plan: Cardiology, Dr Hernandez---> Help appreciated * Reevaluation for the need for continuous plavix as patient has had stent placement > 2 years and has been taking plavix for 2 yrs Cardiac cath 02/2016 with 2x stents Cont home ASA 81mg PO QD Cont home Plavix 75mg PO QD: Discontinued as per cardiology recommendation Status: Chronic (9) Hypertension Assessment & Plan: BP currently borderline low Will hold off starting home BP meds for now Monitor Status: Chronic (10) Prophylactic measure Assessment & Plan: SCDs, Lovenox 30mg SC QD Pepcid 20mg PO QD Heart healthy diet Disposition: Planned for discharge today, however due to intermittent fever, patient will not be discharge until she is afebrile > 24 hours All plans and management discussed with Dr. Huston Status: Acute <Dori Huston - Last Filed: 10/05/17 18:26> Objective - Vital Signs/Intake and Output Vital Signs (last 24 hours): Temp Pulse Resp BP Pulse Ox 97.8 F 84 20 168/75 H 95 10/05/17 15:00 10/05/17 15:00 10/05/17 15:00 10/05/17 15:00 10/05/17 15:00 Intake and Output: 10/05/17 10/05/17 06:59 18:59 Intake Total 410 740 Balance 410 740 - Medications Medications: Current Medications Albuterol/Ipratropium (Duoneb 3 Mg/0.5 Mg (3 Ml) Ud) 3 ml INH RQ6 [facility] Last Admin: 10/05/17 13:40 Dose: 3 ml Aspirin (Ecotrin) 81 mg PO DAILY [facility] Last Admin: 10/05/17 09:46 Dose: 81 mg Dextrose (Dextrose 50% Inj) 0 ml IV STAT PRN; Protocol PRN Reason: Hypoglycemia Protocol Dextrose (Glutose 15) 0 gm PO ONCE PRN; Protocol PRN Reason: Hypoglycemia Protocol Enoxaparin Sodium (Lovenox) 30 mg SC DAILY [facility] Last Admin: 10/05/17 09:47 Dose: 30 mg Famotidine (Pepcid) 20 mg PO DAILY [facility] Last Admin: 10/05/17 09:46 Dose: 20 mg Ferrous Sulfate (Feosol) 325 mg PO TID [facility] Last Admin: 10/05/17 17:10 Dose: 325 mg Glucagon (Glucagen Diagnostic Kit) 0 mg IM STAT PRN; Protocol PRN Reason: Hypoglycemia Protocol Dextrose (Dextrose 5% In Water 1000 Ml) 1,000 mls @ 0 mls/hr IV .Q0M PRN; Protocol; Per Protocol PRN Reason: Hypoglycemia Protocol Piperacillin Sod/Tazobactam Sod (Zosyn 2.25 Gm Iv Premix) 2.25 gm in 50 mls @ 100 mls/hr IVPB Q8H [facility] Last Admin: 10/05/17 14:10 Dose: 100 mls/hr Sodium Chloride (Sodium Chloride 0.9%) 1,000 mls @ 70 mls/hr IV .[id number] [facility] Last Admin: 10/05/17 14:10 Dose: 70 mls/hr Insulin Aspart (Novolog) 0 unit SC ACHS [facility] PRN Reason: Protocol Last Admin: 10/05/17 17:10 Dose: 2 unit Insulin Glargine (Lantus) 15 unit SC [facility] Last Admin: 10/04/17 21:45 Dose: 15 u Polyethylene Glycol (Miralax) 17 gm PO [facility] Last Admin: 10/04/17 21:46 Dose: 17 gm Promethazine HCl/Codeine (Phenergan/Codeine Oral Syrup) 5 ml PO Q4 PRN PRN Reason: Cough Last Admin: 10/03/17 17:25 Dose: 5 ml Rosuvastatin Calcium (Crestor) 10 mg PO [facility] Last Admin: 10/04/17 21:46 Dose: 10 mg - Labs Labs: 10/05/17 07:01 10/05/17 07:01 PT 12.9 SECONDS (9.7-12.2) H 10/03/17 02:37 INR 1.2 10/03/17 02:37 APTT 27 SECONDS (21-34) 10/03/17 02:37 Attending/Attestation - Attestation I have personally seen and examined this patient.: Yes I have fully participated in the care of the patient.: Yes I have reviewed all pertinent clinical information, including history, physical exam and plan: Yes Notes (Text): Patient is ambulating,no abdominal pain,has cough,clear lungs,Low grade fever Cultures negative. team facilitator saw the pt ,off plavix,Seen by GI continue Iron and monitor cbc,chronic renal disease.normal creatinine' d/w resident, If no fever spikes we will discharge her tomorrow morning I agree with the resident's documentation of the assessment and the plan
[2017-10-05] MEDS: POLYETHYLENE GLYCOL 3350 17 GM/Dose PACKET PO SCH (21:29)
[2017-10-05] MEDS: (Lantus) Insulin Glargine, Recombinant SC SCH (21:30)
--- NOTE | 2017-10-05 23:48 | CP.PCM.PN ---
Subjective - Date & Time of Evaluation Date of Evaluation: 10/05/17 Time of Evaluation: 19:35 - Subjective Subjective: Patient seen and evaluated Reports improvement in chest pain No dyspnea Hx of CAD and stents Anemia Medical management Objective - Vital Signs/Intake and Output Vital Signs (last 24 hours): Temp Pulse Resp BP Pulse Ox 97.8 F 84 20 168/75 H 95 10/05/17 15:00 10/05/17 15:00 10/05/17 15:00 10/05/17 15:00 10/05/17 15:00 Intake and Output: 10/05/17 10/06/17 18:59 06:59 Intake Total 740 970 Balance 740 970 - Medications Medications: Current Medications Albuterol/Ipratropium (Duoneb 3 Mg/0.5 Mg (3 Ml) Ud) 3 ml INH RQ6 [facility] Last Admin: 10/05/17 19:48 Dose: 3 ml Aspirin (Ecotrin) 81 mg PO DAILY [facility] Last Admin: 10/05/17 09:46 Dose: 81 mg Dextrose (Dextrose 50% Inj) 0 ml IV STAT PRN; Protocol PRN Reason: Hypoglycemia Protocol Dextrose (Glutose 15) 0 gm PO ONCE PRN; Protocol PRN Reason: Hypoglycemia Protocol Enoxaparin Sodium (Lovenox) 30 mg SC DAILY [facility] Last Admin: 10/05/17 09:47 Dose: 30 mg Famotidine (Pepcid) 20 mg PO DAILY [facility] Last Admin: 10/05/17 09:46 Dose: 20 mg Ferrous Sulfate (Feosol) 325 mg PO TID [facility] Last Admin: 10/05/17 17:10 Dose: 325 mg Glucagon (Glucagen Diagnostic Kit) 0 mg IM STAT PRN; Protocol PRN Reason: Hypoglycemia Protocol Dextrose (Dextrose 5% In Water 1000 Ml) 1,000 mls @ 0 mls/hr IV .Q0M PRN; Protocol; Per Protocol PRN Reason: Hypoglycemia Protocol Piperacillin Sod/Tazobactam Sod (Zosyn 2.25 Gm Iv Premix) 2.25 gm in 50 mls @ 100 mls/hr IVPB Q8H [facility] Last Admin: 10/05/17 21:29 Dose: 100 mls/hr Sodium Chloride (Sodium Chloride 0.9%) 1,000 mls @ 70 mls/hr IV .[id number] [facility] Last Admin: 10/05/17 14:10 Dose: 70 mls/hr Insulin Aspart (Novolog) 0 unit SC ACHS [facility] PRN Reason: Protocol Last Admin: 10/05/17 21:20 Dose: Not Given Insulin Glargine (Lantus) 15 unit SC HS [facility] Last Admin: 10/05/17 21:30 Dose: Not Given Polyethylene Glycol (Miralax) 17 gm PO HS [facility] Last Admin: 10/05/17 21:29 Dose: 17 gm Promethazine HCl/Codeine (Phenergan/Codeine Oral Syrup) 5 ml PO Q4 PRN PRN Reason: Cough Last Admin: 10/03/17 17:25 Dose: 5 ml Rosuvastatin Calcium (Crestor) 10 mg PO [facility] Last Admin: 10/05/17 21:29 Dose: 10 mg - Labs Labs: 10/05/17 07:01 10/05/17 07:01 PT 12.9 SECONDS (9.7-12.2) H 10/03/17 02:37 INR 1.2 10/03/17 02:37 APTT 27 SECONDS (21-34) 10/03/17 02:37
[2017-10-06] MEDS: Albuterol-Ipratrop 3 mg / 0.5 (3 ml) UD INH SCH ×3 (01:44→13:02)
[2017-10-06] MEDS: Sodium Chloride 0.9% 1,000 ML IV SCH (04:04)
[2017-10-06] MEDS: Piperacill/Tazo 2.25gm in Dex 2.25 GM/50 ML BAG IVPB SCH (04:04)
[2017-10-06 08:25] LABS: BASO % 0.6 % (0.0-2.0); EOS # 0.3 K/uL (0.0-0.7); EOS % 5.1 % (0.0-4.0); HEMOGLOBIN 7.8 g/dL (11.0-16.0); LYMPH # 1.7 K/uL (1.0-4.3); LYMPH % 24.8 % (20.0-40.0); MEAN CELL VOLUME 84.8 fL (81.0-99.0); MEAN CORPUSCULAR HEMOGLOBIN 28.6 pg (27.0-31.0); MEAN CORPUSCULAR HGB CONC 33.7 g/dL (33.0-37.0); MEAN PLATELET VOLUME 7.8 fL (7.2-11.7); MONO % 14.8 % (0.0-10.0); NEUT # 3.7 K/uL (1.8-7.0); NEUT % 54.7 % (50.0-75.0); RBC 2.73 Mil/uL (3.80-5.20); RED CELL DISTRIBUTION WIDTH 15.9 % (11.5-14.5); WHITE BLOOD COUNT 6.8 K/uL (4.8-10.8)
[2017-10-06] MEDS: (Novolog) Insulin Aspart, Recombinant 100 u/ml 10 ml vial SC SCH ×3 (08:26→17:28)
[2017-10-06 08:37] LABS: ALBUMIN 3.4 g/dL (3.5-5.0); ALT/SGPT 15 U/L (9-52); AST/SGOT 25 U/L (14-36); BLOOD UREA NITROGEN 17 mg/dL (7-17); CALCIUM 8.8 mg/dl (8.6-10.4); GFR AFRICAN-AMERICAN > 60; GFR NON-AFRICAN AMERICAN 59; MAGNESIUM 1.8 mg/dL (1.6-2.3)
[2017-10-06] MEDS: Enoxaparin 30 mg Syringe SC SCH (10:14)
[2017-10-06] MEDS ORDERED: Ferric Sodium Gluconat Complex 62.5 mg/5 ml Vial IVPB ONE (12:00)
--- NOTE | 2017-10-06 13:26 | CP.PCM.DIS ---
Provider - Provider Date of Admission: 10/03/17 03:19 Attending physician: Jose Vidal MD Primary care physician: Chuck Gomez MD Consults: Dr. Andrew Hernandez- cardiology Time Spent in preparation of Discharge (in minutes): 45 Hospital Course - Lab Results Lab Results: Micro Results 10/03/17 02:20 Blood Blood Culture - Preliminary NO GROWTH AFTER 3 DAYS 10/03/17 02:20 Blood Blood Culture - Preliminary NO GROWTH AFTER 3 DAYS 10/03/17 06:50 Urine Urine Culture - Final No Growth (<1,000 CFU/ML) Most Recent Lab Values WBC 6.8 K/uL (4.8-10.8) 10/06/17 08:18 RBC 2.73 Mil/uL (3.80-5.20) L 10/06/17 08:18 Hgb 7.8 g/dL (11.0-16.0) L 10/06/17 08:18 Hct 23.1 % (34.0-47.0) L 10/06/17 08:18 MCV 84.8 fL (81.0-99.0) 10/06/17 08:18 MCH 28.6 pg (27.0-31.0) 10/06/17 08:18 MCHC 33.7 g/dL (33.0-37.0) 10/06/17 08:18 RDW 15.9 % (11.5-14.5) H 10/06/17 08:18 Plt Count 277 K/uL (130-400) 10/06/17 08:18 MPV 7.8 fL (7.2-11.7) 10/06/17 08:18 Neut % (Auto) 54.7 % (50.0-75.0) 10/06/17 08:18 Lymph % (Auto) 24.8 % (20.0-40.0) 10/06/17 08:18 Stevens % (Auto) 14.8 % (0.0-10.0) H 10/06/17 08:18 Eos % (Auto) 5.1 % (0.0-4.0) H 10/06/17 08:18 Baso % (Auto) 0.6 % (0.0-2.0) 10/06/17 08:18 Neut # (Auto) 3.7 K/uL (1.8-7.0) 10/06/17 08:18 Lymph # (Auto) 1.7 K/uL (1.0-4.3) 10/06/17 08:18 Stevens # (Auto) 1.0 K/uL (0.0-0.8) H 10/06/17 08:18 Eos # (Auto) 0.3 K/uL (0.0-0.7) 10/06/17 08:18 Baso # (Auto) 0.0 K/uL (0.0-0.2) 10/06/17 08:18 Neutrophils % (Manual) 76 % (50-75) H 10/03/17 02:37 Band Neutrophils % 1 % (0-2) 10/03/17 02:37 Lymphocytes % (Manual) 10 % (20-40) L 10/03/17 02:37 Monocytes % (Manual) 13 % (0-10) H 10/03/17 02:37 Platelet Estimate Normal (NORMAL) 10/03/17 02:37 Poikilocytosis (manual Slight 10/03/17 02:37 Anisocytosis (manual) Slight 10/03/17 02:37 PT 12.9 SECONDS (9.7-12.2) H 10/03/17 02:37 INR 1.2 10/03/17 02:37 APTT 27 SECONDS (21-34) 10/03/17 02:37 pO2 24 mm/Hg (30-55) L 10/03/17 02:40 VBG pH 7.36 (7.32-7.43) 10/03/17 02:40 VBG pCO2 45 mmHg (40-60) 10/03/17 02:40 VBG HCO3 23.0 mmol/L 10/03/17 02:40 VBG Total CO2 26.8 mmol/L (22-28) 10/03/17 02:40 VBG O2 Sat (Calc) 51.1 % (40-65) 10/03/17 02:40 VBG Base Excess -0.4 mmol/L (0.0-2.0) L 10/03/17 02:40 VBG Potassium 3.8 mmol/L (3.6-5.2) 10/03/17 02:40 Sodium 137.0 mmol/l (132-148) 10/03/17 02:40 Chloride 101.0 mmol/L (98-107) 10/03/17 02:40 Glucose 244 mg/dl (65-105) H 10/03/17 02:40 Lactate 1.2 mmol/L (0.7-2.1) 10/03/17 02:40 Sodium 143 mmol/L (132-148) 10/06/17 08:18 Potassium 4.4 mmol/L (3.6-5.2) 10/06/17 08:18 Chloride 104 mmol/L (98-107) 10/06/17 08:18 Carbon Dioxide 30 mmol/L (22-30) 10/06/17 08:18 Anion Gap 13 (10-20) 10/06/17 08:18 BUN 17 mg/dL (7-17) 10/06/17 08:18 Creatinine 0.9 mg/dL (0.7-1.2) 10/06/17 08:18 Est GFR ( Amer) > 60 10/06/17 08:18 Est GFR (Non-Af Amer) 59 10/06/17 08:18 POC Glucose (mg/dL) 308 mg/dL (65-110) H 10/06/17 11:26 Random Glucose 168 mg/dL (65-105) H 10/06/17 08:18 Hemoglobin A1c 7.4 % (4.2-6.5) H 10/04/17 07:19 Calcium 8.8 mg/dl (8.6-10.4) 10/06/17 08:18 Phosphorus 3.5 mg/dL (2.5-4.5) 10/06/17 08:18 Magnesium 1.8 mg/dL (1.6-2.3) 10/06/17 08:18 Iron < 10 ug/dL (37-170) L 10/04/17 07:19 TIBC 237 ug/dL (250-450) L 10/04/17 07:19 % Saturation < 4.2 (20-55) L 10/04/17 07:19 Total Bilirubin 0.4 mg/dL (0.2-1.3) 10/06/17 08:18 AST 25 U/L (14-36) 10/06/17 08:18 ALT 15 U/L (9-52) 10/06/17 08:18 Alkaline Phosphatase 65 U/L (38-126) 10/06/17 08:18 Troponin I 0.0340 ng/mL (0.00-0.120) 10/03/17 02:37 Total Protein 6.8 g/dL (6.3-8.3) 10/06/17 08:18 Albumin 3.4 g/dL (3.5-5.0) L 10/06/17 08:18 Globulin 3.5 gm/dL (2.2-3.9) 10/06/17 08:18 Albumin/Globulin Ratio 1.0 (1.0-2.1) 10/06/17 08:18 Venous Blood Potassium 3.8 mmol/L (3.6-5.2) 10/03/17 02:40 Urine Color Straw (YELLOW) 10/03/17 06:58 Urine Clarity Clear (Clear) 10/03/17 06:58 Urine pH 5.0 (5.0-8.0) 10/03/17 06:58 Ur Specific [place] 1.006 (1.003-1.030) 10/03/17 06:58 Urine Protein 1+ mg/dL (NEGATIVE) H 10/03/17 06:58 Urine Glucose (UA) 3+ mg/dL (Normal) H 10/03/17 06:58 Urine Ketones Negative mg/dL (NEGATIVE) 10/03/17 06:58 Urine Blood 1+ (NEGATIVE) H 10/03/17 06:58 Urine Nitrate Negative (NEGATIVE) 10/03/17 06:58 Urine Bilirubin Negative (NEGATIVE) 10/03/17 06:58 Urine Urobilinogen Normal mg/dL (0.2-1.0) 10/03/17 06:58 Ur Leukocyte Esterase Neg Branden/uL (Negative) 10/03/17 06:58 Urine WBC (Auto) < 1 /hpf (0-5) 10/03/17 06:58 Urine RBC (Auto) 2 /hpf (0-3) 10/03/17 06:58 Ur Squamous Epith Cells 1 /hpf (0-5) 10/03/17 06:58 Urine Bacteria Rare (<OCC) 10/03/17 06:58 Hyaline Casts 0-2 /lpf (0-2) 10/03/17 06:58 Influenza Typ A,B (EIA) Negative for flu a/b (NEGATIVE) 10/03/17 02:47 - Hospital Course Hospital Course: Attending: Dr. Huston Consults Andrew Hernandez MD- cardiology Stable for discharge Procedures- No complications Labs: see lab data section HPI: see H/P Discharge diagnoses. 1. fever/sirs 2. cough 3. copd 4. marleni 5. anemia 6. dm 7. cad 8. htn Hospital course 1. SIRS/Sepsis/fever. -leukocytosis on admission, intermittent fevers -negative UA -negative rapid flu -negative blood and urine cultures -CXR 10/03- negative for any acute disease. -pt was given tylenol for fever, IVF, IV zosyn, and 2 days of tamiflu 2. Cough /shortness of breath -pt given promethazine -pt given duonebs 3. Acute kidney injury -elevated BUN and CR on admission -resolved during course of hospital stay -given IVF -likely pre-renal 4. Hx of COPD -given duonebs. 5. iron deficiency anemia -pt chronically anemic -possible non compliance with iron pills -given oral and IV iron while in hospital -discharged on home oral iron BID 6. Chest pain -troponin negative -plavix discontinued -asa 81 mg daily -cardiology consult 7. Hx of DM -ISS -lantus SC HS -hypoglycemia protocol -accuchecks 8. Hx of CAD -cardiology consult. -continue asa 81 mg po daily -plavix discontinued -hx of stent 9. hx of HTN -bp meds held in light of borderline bp -discharging on home norvasc 10. gi/dvt ppx -pepcid -scds Discharge instructions: Pt is to follow up with PMD Dr. Gomez. Patient is to make sure she takes all home medications including iron pills. Please follow up with PMD within 3 days. Please return if condition worsens. Discharge meds 1. tylenol with codeine number 3 2. ventolin inhaler 3. xanax 1 mg PO daily 4. norvasc 10 mg po daily 5. asa 81 mg daily 6. brimonidine eye drops 7. colace 100 mg po daily 8. nexium 9. famotidine 10. ferrous sulfate 325 bid 11. furosemide 40 daily 12. insulin 70/30 10 units SC HS 13. insulin NPH 30 daily 14. losartan 25 mg daily 15. lubiprostone 24 mcg bid 16. meclizine 12.5 bid 17. crestor 5 mg po hs - Date & Time of H&P Date of H&P: 10/03/17 Time of H&P: 04:20 Discharge Exam - Head Exam Head Exam: ATRAUMATIC, NORMAL INSPECTION Discharge Plan - Discharge Medications Prescriptions: Ferrous Sulfate 325 mg PO BID 30 Days #60 tablet - Follow Up Plan Condition: FAIR Disposition: HOME/ ROUTINE Additional Instructions: Please discharge patient home Please resume all your home medications Please start the following new medications: 1. Avelox 400mg PO daily for 5 days with yogurt or over the counter probiotics 2. Ferrous sulfate 325mg PO BID ( Twice daily) Patient is to follow up with Dr. Gomez in 1 week. If symptoms worsen, patient is to return to the hospital for further evaluation and treatment. Referrals: Chuck Gomez MD [Primary Care Provider] -
[2017-10-06 16:44] VITALS: BP 138/56; PULSE 74; TEMP 98.9; O2SAT 95
[2017-10-07] MEDS ORDERED: Ferric Sodium Gluconat Complex 62.5 mg/5 ml Vial IVPB ONE (12:00)
== END 2017-10-06 19:08 | disposition home or self-care (01) | DRG 191 ==
LOC: SUPCPDRO 02:06 → C.ER 02:06 → C.9E 03:19 → C.3T 14:16
PROVIDERS: ADMIT Family Medicine; ATTEND Family Medicine
DX: J44.1 Chronic obstructive pulmonary disease with (acute) exacerbation (principal); N17.9 Acute kidney failure, unspecified; E11.22 Type 2 diabetes mellitus with diabetic chronic kidney disease; E11.65 Type 2 diabetes mellitus with hyperglycemia; F17.210 Nicotine dependence, cigarettes, uncomplicated; D50.9 Iron deficiency anemia, unspecified; E78.00 Pure hypercholesterolemia, unspecified; F41.9 Anxiety disorder, unspecified; I12.9 Hypertensive chronic kidney disease with stage 1 through stage 4 chronic kidney disease, or unspecified chronic kidney disease; I25.10 Atherosclerotic heart disease of native coronary artery without angina pectoris; K57.90 Diverticulosis of intestine, part unspecified, without perforation or abscess without bleeding; K59.00 Constipation, unspecified; M06.9 Rheumatoid arthritis, unspecified; N18.9 Chronic kidney disease, unspecified; Z79.82 Long term (current) use of aspirin; Z95.5 Presence of coronary angioplasty implant and graft

== ENCOUNTER 2017-10-31 23:20 | Observation (INO) | payer MEDICARE, MEDICAID ==
[2017-10-31 23:20] VITALS: BMI 21.4
--- NOTE | 2017-10-31 23:45 | C.PDOC ---
History Of Present Illness Patient presents to the ER with a complaint of a dull, achy, pressure chest pain after having an argument with a family member at home. Denies nausea, vomiting, or SOB. Time Seen by Provider: 10/31/17 23:44 Chief Complaint (Nursing): Chest Pain History Per: Patient History/Exam Limitations: no limitations Onset/Duration Of Symptoms: Hrs Current Symptoms Are (Timing): Still Present Severity: Moderate Pain Scale Rating Of: 4 Quality: Dull, Aching, Pressure Associated Symptoms: denies: Nausea, Dyspnea, Diaphoresis, Syncope Modifying Factors: None Exacerbating Factors: None Alleviating Factors: None Recent travel outside of the [place]: No Additional History Per: Family Past Medical History Reviewed: Historical Data, Nursing Documentation, Vital Signs Vital Signs: Last Vital Signs Temp 97.9 F 10/31/17 23:30 Pulse 79 10/31/17 23:30 Resp 20 10/31/17 23:30 BP 159/76 H 10/31/17 23:30 Pulse Ox 96 11/01/17 01:00 - Medical History PMH: Anemia, Anxiety, Arthritis (R HIP; BACK), Asthma, Back Problems (HX CHRONIC BACK PAIN), CAD, COPD, Diabetes, Fractures (left wrist AND RT. HIP), Gastritis, HTN, Hypercholesterolemia, Hyperlipidemia, Osteoporosis, Rheumatoid Arthritis Surgical History: Coronary Stent (cad cath 02/2016 with stent) - [facility] Procedures APPLICATION OF SPLINT (06/18/14) EXCISION OF ASCENDING COLON, ENDO, DIAGN (12/05/16) EXCISION OF STOMACH, ENDO, DIAGN (12/05/16) FLUOROSCOPY OF LEFT HEART USING LOW OSMOLAR CONTRAST (02/05/16) GAIT TRAINING/AMBULAT TREATMENT USING ASSIST EQUIPMENT (11/08/15) INTRODUCE ANTI-INFLAM IN PERIPH NRV, PLEXI, PERC (11/08/15) INTRODUCE REGIONAL ANESTH IN PERIPH NRV, PLEXI, PERC (11/08/15) MEASURE OF CARDIAC SAMPL & PRESSURE, L HEART, PERC APPROACH (02/05/16) NEBULIZER THERAPY (06/16/14) REPAIR LEFT UPPER ARM TENDON, OPEN APPROACH (11/08/15) REPAIR OF HAMMER TOE (07/17/13) REPOSITION LEFT HUMERAL SHAFT WITH INT FIX, OPEN APPROACH (11/08/15) TRANSFUSE NONAUT RED BLOOD CELLS IN PERIPH VEIN, PERC (12/05/16) Family History: States: No Known Family Hx - Social History Hx Tobacco Use: No Hx Alcohol Use: No Hx Substance Use: No - Immunization History Hx Tetanus Toxoid Vaccination: Yes (3 mos. ago) Hx Influenza Vaccination: No Hx Pneumococcal Vaccination: No Review Of Systems Constitutional: Negative for: Fever, Chills Cardiovascular: Positive for: Chest Pain. Negative for: Palpitations Respiratory: Negative for: Shortness of Breath Gastrointestinal: Negative for: Nausea, Vomiting Genitourinary: Negative for: Dysuria Skin: Negative for: Rash Neurological: Negative for: Weakness Psych: Negative for: Anxiety Physical Exam - Physical Exam Appears: Non-toxic Skin: Warm, Dry Head: Normacephalic Eye(s): bilateral: Normal Inspection Oral Mucosa: Moist Neck: Supple Chest: Symmetrical, No Tenderness Cardiovascular: Rhythm Regular Respiratory: No Rales, No Rhonchi, No Wheezing Gastrointestinal/Abdominal: Soft, No Tenderness Back: No CVA Tenderness Extremity: Normal ROM Extremity: Bilateral: Atraumatic Pulses: Left Dorsalis Pedis: Normal, Right Dorsalis Pedis: Normal Neurological/Psych: Oriented x3 Gait: Steady ED Course And Treatment - Laboratory Results Result Diagrams: 10/31/17 23:56 10/31/17 23:56 ECG: Interpreted By Me, Viewed By Me ECG Rhythm: Sinus Rhythm (74), L BBB, Nonspecific Changes (unchanged from previous) O2 Sat by Pulse Oximetry: 96 (Room air) Pulse Ox Interpretation: Normal - Radiology CXR: Interpreted by Me, Viewed By Me CXR Interpretation: Yes: Other (fibrotic changes, unchanged from 10/03). No: Infiltrates, Fracture, Pnemothorax Progress Note: EKG, blood work, CXR, and urinalysis ordered. Aspirin administered. Disposition Discussed With : Jose Vidal Comment: accepted the pt on his service and took over the care at 1:18 AM Doctor Will See Patient In The: ED Counseled Patient/Family Regarding: Studies Performed, Diagnosis - Disposition Disposition: HOSPITALIZED Disposition Time: 23:45 Condition: FAIR Forms: [facility] (Niuean) - Clinical Impression Clinical Impression: Chest pain - Scribe Statement The provider has reviewed the documentation as recorded by the Scribe Enrique Aparicio All medical record entries made by the Scribe were at my direction and personally dictated by me. I have reviewed the chart and agree that the record accurately reflects my personal performance of the history, physical exam, medical decision making, and the department course for this patient. I have also personally directed, reviewed, and agree with the discharge instructions and disposition. Decision To Admit - Pt Status Changed To: Hospital Disposition Of: Observation - . Bed Request Type: Telemetry Admitting Physician: Jose Vidal Patient Diagnosis: Chest pain
[2017-10-31] MEDS ORDERED: Aspirin 325 mg EC Tablets PO STA (23:47)
[2017-10-31] MEDS ORDERED: Aspirin 325 mg EC Tablets PO ONE (23:58)
[2017-11-01 00:04] LABS: BASO % 0.7 % (0.0-2.0); EOS # 0.2 K/uL (0.0-0.7); EOS % 3.2 % (0.0-4.0); HEMOGLOBIN 9.5 g/dL (11.0-16.0); LYMPH # 1.3 K/uL (1.0-4.3); LYMPH % 23.4 % (20.0-40.0); MEAN CELL VOLUME 84.2 fL (81.0-99.0); MEAN CORPUSCULAR HEMOGLOBIN 27.7 pg (27.0-31.0); MEAN CORPUSCULAR HGB CONC 32.9 g/dL (33.0-37.0); MEAN PLATELET VOLUME 8.8 fL (7.2-11.7); MONO # 0.6 K/uL (0.0-0.8); MONO % 11.8 % (0.0-10.0); NEUT # 3.4 K/uL (1.8-7.0); NEUT % 60.9 % (50.0-75.0); RBC 3.42 Mil/uL (3.80-5.20); RED CELL DISTRIBUTION WIDTH 16.1 % (11.5-14.5); WHITE BLOOD COUNT 5.5 K/uL (4.8-10.8)
[2017-11-01 00:07] LABS: INR 1.1; PROTHROMBIN TIME 11.9 SECONDS (9.7-12.2)
[2017-11-01 00:21] LABS: ALB/GLOB RATIO 1.1 (1.0-2.1); ALBUMIN 4.1 g/dL (3.5-5.0); CALCIUM 9.1 mg/dl (8.6-10.4)
[2017-11-01 00:27] LABS: TROPONIN I 0.02 ng/mL (0.00-0.120)
[2017-11-01 00:40] LABS: SQUAMOUS EPITHIAL 9 /hpf (0-5); URINE BILIRUBIN NEGATIVE (NEGATIVE); URINE BLOOD NEGATIVE (NEGATIVE); URINE CLARITY Clear (Clear); URINE COLOR Straw (YELLOW); URINE GLUCOSE (UA) NORMAL (Normal); URINE LEUKOCYTE ESTERASE 1+ Leu/uL (Negative); URINE PROTEIN NEGATIVE (NEGATIVE); URINE UROBILINOGEN NORMAL mg/dL (0.2-1.0)
[2017-11-01] MEDS ORDERED: Albuterol HFA 90 mcg/actuation (8 g) INH PRN (02:22)
[2017-11-01] MEDS ORDERED: Glucagon Recombinant 1 mg Inj IM PRN (02:28)
[2017-11-01] MEDS ORDERED: Dextrose 50% SYRINGE Inj (50 ml) IV PRN (02:28)
--- NOTE | 2017-11-01 02:29 | CP.PCM.HP ---
<Camilla Chavira - Last Filed: 11/01/17 03:05> History of Present Illness - History of Present Illness History of Present Illness: Code Status: Full Code Contact: Daughter Kira Curiel #[phone] CC: "Chest Pain" HPI: 86 year old female with past medical history of CAD, HTN, DM, gastritis, asthma, arthritis, COPD, anxiety who presents to the ER for chest pain. Patient states the chest pain has been going on for 2 weeks but it was worse today (Sunday evening) while she was in bed. Patient states the pain was constant until she arrived to the ER. She stated the pain felt like her chest was enlarged and she felt pressure. She also states she has not been able to take her medications for a few days because they have not delivered them yet. Patient currently denies chest pain, palpitations, shortness of breath, nausea, vomiting or fever. PMD: Dr. Gomez Past Medical History: CAD, HTN, DM, gastritis, asthma, arthritis, COPD, anxiety Past Surgical History: hysterectomy and oopherectomy, cataract surgery, Cardiac cath 02/2016 with 2x stents Family History: Mother had asthma, heart disease, at age 92 Medications: 1. tylenol with codeine number 3; ventolin inhaler; xanax 1 mg PO daily; norvasc 10 mg po daily; asa 81 mg daily; brimonidine eye drops; colace 100 mg po daily; nexium; famotidine; ferrous sulfate 325 bid; furosemide 40 daily; insulin 70/30 10 units SC HS; insulin NPH 30 daily; losartan 25 mg daily ; lubiprostone 24 mcg bid; meclizine 12.5 bid; crestor 5 mg po hs Allergies: NKDA Social History: smoked 1ppd x 50 yrs, quit 20 yrs ago; social drinker in the past, denies current use. denies illicit drug use. Patient states she lives part of a home by herself. Present on Admission - Present on Admission Any Indicators Present on Admission: No Review of Systems - Constitutional Constitutional: absent: Chills, Fever - EENT Eyes: absent: Change in Vision - Cardiovascular Cardiovascular: absent: Chest Pain, Dyspnea, Leg Edema, Lightheadedness, Orthopnea, Palpitations - Respiratory Respiratory: absent: Cough, Dyspnea - Gastrointestinal Gastrointestinal: Constipation. absent: Diarrhea, Nausea, Vomiting - Genitourinary Genitourinary: absent: Dysuria - Neurological Neurological: absent: Dizziness, Headaches Past Patient History - Infectious Disease Hx of Infectious Diseases: None - Tetanus Immunizations Tetanus Immunization: Unknown - Past Medical History & Family History Past Medical History?: Yes - Past Social History Smoking Status: Never Smoked - CARDIAC Hx Hypercholesterolemia: Yes Hx Hypertension: Yes - PULMONARY Hx Asthma: Yes Hx Chronic Obstructive Pulmonary Disease (COPD): Yes - NEUROLOGICAL Hx Seizures: No - HEENT Hx HEENT Problems: Yes Hx Cataracts: Yes (right eye) Hx Glaucoma: Yes (left eye) Other/Comment: [place] LEFT EAR - RENAL Hx Chronic Kidney Disease: No - HEMATOLOGICAL/ONCOLOGICAL Hx Anemia: Yes - INTEGUMENTARY Hx Dermatological Problems: No - MUSCULOSKELETAL/RHEUMATOLOGICAL Hx Arthritis: Yes (R HIP; BACK) Hx Fractures: Yes (left wrist AND RT. HIP) Hx Osteoporosis: Yes Hx Rheumatoid Arthritis: Yes - GASTROINTESTINAL Hx Gastritis: Yes - GENITOURINARY/GYNECOLOGICAL Hx Genitourinary Disorders: Yes Other/Comment: fibroid surgery - PSYCHIATRIC Hx Anxiety: Yes Hx Substance Use: No - SURGICAL HISTORY Hx Coronary Stent: Yes (cad cath 02/2016 with stent) - ANESTHESIA Hx Anesthesia: Yes Hx Anesthesia Reactions: No Hx Malignant Hyperthermia: No Meds Allergies/Adverse Reactions: Allergies Allergy/AdvReac Type Severity Reaction Status Date / Time No Known Allergies Allergy Verified 10/31/17 23:35 Physical Exam - Constitutional Appears: No Acute Distress - Head Exam Head Exam: ATRAUMATIC, NORMAL INSPECTION - Eye Exam Eye Exam: EOMI, Normal appearance - ENT Exam ENT Exam: Mucous Membranes Moist - Respiratory Exam Respiratory Exam: Clear to Auscultation Bilateral, NORMAL BREATHING PATTERN. absent: Rales, Rhonchi, Wheezes, Stridor - Cardiovascular Exam Cardiovascular Exam: REGULAR RHYTHM, RRR, +S1, +S2 - GI/Abdominal Exam GI & Abdominal Exam: Normal Bowel Sounds, Soft. absent: Tenderness - Extremities Exam Extremities exam: Positive for: normal inspection - Neurological Exam Neurological exam: Alert, Oriented x3 - Psychiatric Exam Psychiatric exam: Normal Affect, Normal Mood - Skin Skin Exam: Dry, Intact, Normal Color Results - Vital Signs Recent Vital Signs: Last Vital Signs Temp 98.3 F 11/01/17 02:09 Pulse 76 11/01/17 02:09 Resp 20 11/01/17 02:09 BP 167/73 H 11/01/17 02:09 Pulse Ox 95 11/01/17 02:09 - Labs Result Diagrams: 10/31/17 23:56 10/31/17 23:56 Labs: Laboratory Results - last 24 hr 10/31/17 10/31/17 10/31/17 23:56 23:56 23:56 WBC 5.5 RBC 3.42 L Hgb 9.5 L Hct 28.8 L MCV 84.2 MCH 27.7 MCHC 32.9 L RDW 16.1 H Plt Count 244 MPV 8.8 Neut % (Auto) 60.9 Lymph % (Auto) 23.4 [place] % (Auto) 11.8 H Eos % (Auto) 3.2 Baso % (Auto) 0.7 Neut # (Auto) 3.4 Lymph # (Auto) 1.3 [place] # (Auto) 0.6 Eos # (Auto) 0.2 Baso # (Auto) 0.0 PT 11.9 INR 1.1 APTT 32 Sodium 138 Potassium 4.4 Chloride 94 L Carbon Dioxide 27 Anion Gap 21 H BUN 46 H Creatinine 1.5 H Est GFR ( Amer) 40 Est GFR (Non-Af Amer) 33 Random Glucose 169 H Calcium 9.1 Total Bilirubin 0.5 AST 31 ALT 9 D Alkaline Phosphatase 78 Troponin I 0.0200 Total Protein 7.9 Albumin 4.1 Globulin 3.8 Albumin/Globulin Ratio 1.1 Urine Color Urine Clarity Urine pH Ur Specific [place] Urine Protein Urine Glucose (UA) Urine Ketones Urine Blood Urine Nitrate Urine Bilirubin Urine Urobilinogen Ur Leukocyte Esterase Urine WBC (Auto) Urine RBC (Auto) Ur Squamous Epith Cells Hyaline Casts 11/01/17 00:34 WBC RBC Hgb Hct MCV MCH MCHC RDW Plt Count MPV Neut % (Auto) Lymph % (Auto) [place] % (Auto) Eos % (Auto) Baso % (Auto) Neut # (Auto) Lymph # (Auto) [place] # (Auto) Eos # (Auto) Baso # (Auto) PT INR APTT Sodium Potassium Chloride Carbon Dioxide Anion Gap BUN Creatinine Est GFR ( Amer) Est GFR (Non-Af Amer) Random Glucose Calcium Total Bilirubin AST ALT Alkaline Phosphatase Troponin I Total Protein Albumin Globulin Albumin/Globulin Ratio Urine Color Straw Urine Clarity Clear Urine pH 5.0 Ur Specific [place] 1.006 Urine Protein Negative Urine Glucose (UA) Normal Urine Ketones Negative Urine Blood Negative Urine Nitrate Negative Urine Bilirubin Negative Urine Urobilinogen Normal Ur Leukocyte Esterase 1+ H Urine WBC (Auto) 8 H Urine RBC (Auto) 1 Ur Squamous Epith Cells 9 H Hyaline Casts 3-5 H Assessment & Plan - Assessment and Plan (Free Text) Assessment: 1.) Acute chest pain - Troponin NEGATIVE - f/u trop x2 - EKG interpreted by ED attending - Sinus Rhythm (74), L BBB, Nonspecific Changes (unchanged from 07/01/17 or 03/20/17 or 10/03/17) - f/u chest x-ray 2.) History of COPD - Ventolin prn 3.) History of Anemia - Monitor H/H - ferrous sulfate 325mg PO TID Anemia Work-up (12/06/2016): - Iron: 39, TIBC: 325, %SAT: 12 and Ferritin: 9.0 4.) Constipation - Colace 100mg po daily 5.) History of Diabetes mellitus - HgbA1C in 06/22 was 9.2 - Hemoglobin A1C: 7.4 (10/04/17) - Accuchecks - ISS - low dose - Hypoglycemia protocol 5.) History of CAD (coronary artery disease) - ECHO (01/22/17): EF 52% - ASA 81mg PO QD - Crestor 5mg po HS 6.) History of Hypertension - Norvasc 10mg po daily - Losartan 25mg daily 7.) History of Anxiety - Xanax 1mg po daily 8.) Prophylactic measure - SCDs - Lovenox 30mg SC daily - Pepcid 20mg PO daily - Heart healthy diet - Ensure x3 - PT eval and treat Case discussed with Dr. Marcy Chavira PGY-1 <Jose Vidal - Last Filed: 11/01/17 06:28> Results - Vital Signs Recent Vital Signs: Last Vital Signs Temp 98.3 F 11/01/17 02:09 Pulse 65 11/01/17 04:09 Resp 20 11/01/17 02:09 BP 167/73 H 11/01/17 02:09 Pulse Ox 95 11/01/17 05:42 - Labs Result Diagrams: 10/31/17 23:56 10/31/17 23:56 Labs: Laboratory Results - last 24 hr 10/31/17 10/31/17 10/31/17 23:56 23:56 23:56 WBC 5.5 RBC 3.42 L Hgb 9.5 L Hct 28.8 L MCV 84.2 MCH 27.7 MCHC 32.9 L RDW 16.1 H Plt Count 244 MPV 8.8 Neut % (Auto) 60.9 Lymph % (Auto) 23.4 [place] % (Auto) 11.8 H Eos % (Auto) 3.2 Baso % (Auto) 0.7 Neut # (Auto) 3.4 Lymph # (Auto) 1.3 [place] # (Auto) 0.6 Eos # (Auto) 0.2 Baso # (Auto) 0.0 PT 11.9 INR 1.1 APTT 32 Sodium 138 Potassium 4.4 Chloride 94 L Carbon Dioxide 27 Anion Gap 21 H BUN 46 H Creatinine 1.5 H Est GFR ( Amer) 40 Est GFR (Non-Af Amer) 33 POC Glucose (mg/dL) Random Glucose 169 H Calcium 9.1 Total Bilirubin 0.5 AST 31 ALT 9 D Alkaline Phosphatase 78 Troponin I 0.0200 Total Protein 7.9 Albumin 4.1 Globulin 3.8 Albumin/Globulin Ratio 1.1 Urine Color Urine Clarity Urine pH Ur Specific [place] Urine Protein Urine Glucose (UA) Urine Ketones Urine Blood Urine Nitrate Urine Bilirubin Urine Urobilinogen Ur Leukocyte Esterase Urine WBC (Auto) Urine RBC (Auto) Ur Squamous Epith Cells Hyaline Casts 11/01/17 11/01/17 00:34 06:23 WBC RBC Hgb Hct MCV MCH MCHC RDW Plt Count MPV Neut % (Auto) Lymph % (Auto) [place] % (Auto) Eos % (Auto) Baso % (Auto) Neut # (Auto) Lymph # (Auto) [place] # (Auto) Eos # (Auto) Baso # (Auto) PT INR APTT Sodium Potassium Chloride Carbon Dioxide Anion Gap BUN Creatinine Est GFR ( Amer) Est GFR (Non-Af Amer) POC Glucose (mg/dL) 138 H Random Glucose Calcium Total Bilirubin AST ALT Alkaline Phosphatase Troponin I Total Protein Albumin Globulin Albumin/Globulin Ratio Urine Color Straw Urine Clarity Clear Urine pH 5.0 Ur Specific [place] 1.006 Urine Protein Negative Urine Glucose (UA) Normal Urine Ketones Negative Urine Blood Negative Urine Nitrate Negative Urine Bilirubin Negative Urine Urobilinogen Normal Ur Leukocyte Esterase 1+ H Urine WBC (Auto) 8 H Urine RBC (Auto) 1 Ur Squamous Epith Cells 9 H Hyaline Casts 3-5 H Assessment & Plan - Date & Time Date: 11/01/17 (I have seen and examined the patient. I agree with the findings and plan of care as documented by Dr. Chavira. Patient with chest pain. ROMIx3 with EKG. Aspirin and Statin. Also with history of COPD and anemia. Continue home meds. Follow H/H. Monitor for acute changes.) Time: 06:27 Attending/Attestation - Attestation I have personally seen and examined this patient.: Yes I have fully participated in the care of the patient.: Yes I have reviewed all pertinent clinical information: Yes
[2017-11-01] MEDS: (Novolin R) Insulin Human Regular 100 units/ml vial SC SCH ×4 (07:19→21:32)
[2017-11-01 07:48] LABS: BASO % 0.9 % (0.0-2.0); EOS # 0.2 K/uL (0.0-0.7); LYMPH # 1.6 K/uL (1.0-4.3); MEAN CELL VOLUME 83.6 fL (81.0-99.0); MEAN CORPUSCULAR HEMOGLOBIN 28.1 pg (27.0-31.0); MEAN CORPUSCULAR HGB CONC 33.6 g/dL (33.0-37.0); MEAN PLATELET VOLUME 8.6 fL (7.2-11.7); MONO # 0.6 K/uL (0.0-0.8); MONO % 11.5 % (0.0-10.0); NEUT # 2.5 K/uL (1.8-7.0); NEUT % 51.6 % (50.0-75.0); NRBC % 0.1 % (0.0-2.0); RBC 3.2 Mil/uL (3.80-5.20); WHITE BLOOD COUNT 4.9 K/uL (4.8-10.8)
[2017-11-01 07:57] LABS: ALB/GLOB RATIO 1.1 (1.0-2.1); ALBUMIN 3.8 g/dL (3.5-5.0); CALCIUM 8.7 mg/dl (8.6-10.4)
--- NOTE | 2017-11-01 08:18 | RAD ---
PROCEDURE: CHEST RADIOGRAPH, 1 VIEW HISTORY: chest pain COMPARISON: 05/25/2018 and 02/05/2016 FINDINGS: LUNGS: No consolidation. A right apical fibro nodular like scarring -cyst similar-appearing with 02/05/2016 image right apical scarring with adjacent pleural thickening compatible with this PLEURA: No pneumothorax or pleural fluid seen. CARDIOVASCULAR: Mild cardiomegaly Aortic atherosclerotic vascular calcification. OSSEOUS STRUCTURES: Bilateral shoulder arthrosis and minimal thoracic spondylosis VISUALIZED UPPER ABDOMEN: Normal. OTHER FINDINGS: None. IMPRESSION: Chronic changes right lung apex Mild cardiomegaly/ tortuous partly calcified thoracic aorta- stable appearing since 2016
[2017-11-01] MEDS: Enoxaparin 30 mg Syringe SC SCH (09:20)
[2017-11-01] MEDS: Brimonidine 0.2% Opth Sol (5ml) OU SCH (11:00)
--- NOTE | 2017-11-01 14:59 | CARD ---
APPROVED REPORT EKG Measurement Heart [id number] <Conclusion> Normal sinus rhythm Left bundle branch block Abnormal ECG
--- NOTE | 2017-11-01 15:34 | CP.PCM.PN ---
Subjective - Date & Time of Evaluation Date of Evaluation: 11/01/17 Time of Evaluation: 15:34 - Subjective Subjective: PGY1 Medicine Note for Dr. Wright Patient was seen and examined at bedside this morning. Patient was admitted overnight for a complaint of chest pain. The chest pain has resolved and patient is resting comfortably in bed. She states that she well. She was able to eat and go to the bathroom without any problems. She has no complaints at this time Objective - Vital Signs/Intake and Output Vital Signs (last 24 hours): Temp Pulse Resp BP Pulse Ox 98 F 57 L 20 118/62 98 11/01/17 12:10 11/01/17 12:10 11/01/17 12:10 11/01/17 12:10 11/01/17 12:10 Intake and Output: 11/01/17 11/01/17 06:59 18:59 Intake Total 100 Balance 100 - Medications Medications: Current Medications Albuterol (Ventolin Hfa 90 Mcg/Actuation (8 G)) 1 puff INH RQ4 PRN PRN Reason: Shortness of Breath Alprazolam (Xanax) 1 mg PO DAILY [facility] Last Admin: 11/01/17 09:20 Dose: 1 mg Amlodipine Besylate (Norvasc) 10 mg PO DAILY [facility] Last Admin: 11/01/17 09:20 Dose: 10 mg Brimonidine Tartrate (Alphagan 0.2% Opht) 0 ml OU DAILY [facility] Last Admin: 11/01/17 11:00 Dose: 1 drop Dextrose (Dextrose 50% Inj) 0 ml IV STAT PRN; Protocol PRN Reason: Hypoglycemia Protocol Dextrose (Glutose 15) 0 gm PO ONCE PRN; Protocol PRN Reason: Hypoglycemia Protocol Docusate Sodium (Colace) 100 mg PO DAILY [facility] Last Admin: 11/01/17 09:20 Dose: 100 mg Enoxaparin Sodium (Lovenox) 30 mg SC DAILY [facility] Last Admin: 11/01/17 09:20 Dose: 30 mg Famotidine (Pepcid) 20 mg PO DAILY [facility] Last Admin: 11/01/17 09:20 Dose: 20 mg Ferrous Sulfate (Feosol) 325 mg PO BID [facility] Last Admin: 11/01/17 09:20 Dose: 325 mg Furosemide (Lasix) 40 mg PO DAILY [facility] Last Admin: 11/01/17 09:20 Dose: 40 mg Glucagon (Glucagen Diagnostic Kit) 0 mg IM STAT PRN; Protocol PRN Reason: Hypoglycemia Protocol Dextrose (Dextrose 5% In Water 1000 Ml) 1,000 mls @ 0 mls/hr IV .Q0M PRN; Protocol; Per Protocol PRN Reason: Hypoglycemia Protocol Insulin Human Regular (Novolin R) 0 unit SC ACHS [facility]AN PRN Reason: Protocol Last Admin: 11/01/17 12:30 Dose: 3 unit Losartan Potassium (Cozaar) 25 mg PO DAILY [facility] Last Admin: 11/01/17 09:20 Dose: 25 mg Meclizine HCl (Antivert) 12.5 mg PO BID [facility] Last Admin: 11/01/17 09:20 Dose: 12.5 mg Rosuvastatin Calcium (Crestor) 5 mg PO HS [facility] - Labs Labs: 11/01/17 07:13 11/01/17 07:13 PT 11.9 SECONDS (9.7-12.2) 10/31/17 23:56 INR 1.1 10/31/17 23:56 APTT 32 SECONDS (21-34) 10/31/17 23:56 - Constitutional Appears: Non-toxic, No Acute Distress - Head Exam Head Exam: ATRAUMATIC, NORMOCEPHALIC - Eye Exam Eye Exam: EOMI, Normal appearance - ENT Exam ENT Exam: Mucous Membranes Moist - Respiratory Exam Respiratory Exam: Clear to Ausculation Bilateral, NORMAL BREATHING PATTERN. absent: Accessory Muscle Use, Rales, Rhonchi, Wheezes, Respiratory Distress - Cardiovascular Exam Cardiovascular Exam: REGULAR RHYTHM (Mid 60s in NSR on tele), +S1, +S2 - GI/Abdominal Exam GI & Abdominal Exam: Soft, Normal Bowel Sounds. 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 Mild cardiomegaly/ tortuous partly calcified thoracic aorta- stable appearing since 2015 History of COPD - Ventolin prn History of Anemia - Monitor H/H - 9.0/26.8 - MCV 83.6 - ferrous sulfate 325 mg PO TID f/u repeat Anemia Work-up: Anemia Work-up (12/06/2016): - Iron: 39, TIBC: 325, %SAT: 12 and Ferritin: 9.0 Constipation - Colace 100 mg PO daily History of Diabetes mellitus - HgbA1C in 06/22 was 9.2 - Hemoglobin A1C: 7.4 (10/04/17) - Accuchecks - ISS - low dose - Hypoglycemia protocol History of CAD (coronary artery disease) - ECHO (01/22/17): EF 52% - ASA 81 mg PO QD - Crestor 5 mg PO HS History of Hypertension - Norvasc 10 mg PO daily - Losartan 25 mg daily - Lasix 40 mg PO daily History of Anxiety - Xanax 1 mg po daily History of Vertigo - Meclizine 12.5 mg PO BID Prophylactic measure - SCDs - Lovenox 30 mg SC daily - Pepcid 20 mg PO daily - Heart healthy diet - Ensure x3 - PT eval and treat DISPO: Plan to hopefully discharge tomorrow morning. Case discussed with Dr. Adriana Panchal Cherelle PGY1
--- NOTE | 2017-11-01 23:54 | CP.PCM.CON ---
History of Present Illness - History of Present Illness History of Present Illness: Patient seen and evaluated No cardiac events noted Admitted for chest owen HPI: 86 year old female with past medical history of CAD, HTN, DM, gastritis, asthma, arthritis, COPD, anxiety who presents to the ER for chest pain. Patient states the chest pain has been going on for 2 weeks but it was worse today (Sunday evening) while she was in bed. Patient states the pain was constant until she arrived to the ER. She stated the pain felt like her chest was enlarged and she felt pressure. She also states she has not been able to take her medications for a few days because they have not delivered them yet. Patient currently denies chest pain, palpitations, shortness of breath, nausea, vomiting or fever. PMD: Dr. Gomez Past Medical History: CAD, HTN, DM, gastritis, asthma, arthritis, COPD, anxiety Past Surgical History: hysterectomy and oopherectomy, cataract surgery, Cardiac cath 02/2016 with 2x stents Family History: Mother had asthma, heart disease, at age 92 Medications: 1. tylenol with codeine number 3; ventolin inhaler; xanax 1 mg PO daily; norvasc 10 mg po daily; asa 81 mg daily; brimonidine eye drops; colace 100 mg po daily; nexium; famotidine; ferrous sulfate 325 bid; furosemide 40 daily; insulin 70/30 10 units SC HS; insulin NPH 30 daily; losartan 25 mg daily ; lubiprostone 24 mcg bid; meclizine 12.5 bid; crestor 5 mg po hs Allergies: NKDA Social History: smoked 1ppd x 50 yrs, quit 20 yrs ago; social drinker in the past, denies current use. denies illicit drug use. Patient states she lives part of a home by herself. Present on Admission - Present on Admission Any Indicators Present on Admission: No Review of Systems - Constitutional Constitutional: absent: Chills, Fever - EENT Eyes: absent: Change in Vision - Cardiovascular Cardiovascular: absent: Chest Pain, Dyspnea, Leg Edema, Lightheadedness, Orthopnea, Palpitations - Respiratory Respiratory: absent: Cough, Dyspnea - Gastrointestinal Gastrointestinal: Constipation. absent: Diarrhea, Nausea, Vomiting - Genitourinary Genitourinary: absent: Dysuria - Neurological Neurological: absent: Dizziness, Headaches Physical Exam - Constitutional Appears: No Acute Distress - Head Exam Head Exam: ATRAUMATIC, NORMAL INSPECTION - Eye Exam Eye Exam: EOMI, Normal appearance - ENT Exam ENT Exam: Mucous Membranes Moist - Respiratory Exam Respiratory Exam: Clear to Auscultation Bilateral, NORMAL BREATHING PATTERN. absent: Rales, Rhonchi, Wheezes, Stridor - Cardiovascular Exam Cardiovascular Exam: REGULAR RHYTHM, RRR, +S1, +S2 - GI/Abdominal Exam GI & Abdominal Exam: Normal Bowel Sounds, Soft. absent: Tenderness - Extremities Exam Extremities exam: Positive for: normal inspection - Neurological Exam Neurological exam: Alert, Oriented x3 - Psychiatric Exam Psychiatric exam: Normal Affect, Normal Mood - Skin Skin Exam: Dry, Intact, Normal Color Past Patient History - Infectious Disease Hx of Infectious Diseases: None - Tetanus Immunizations Tetanus Immunization: Unknown - Past Medical History & Family History Past Medical History?: Yes - Past Social History Smoking Status: Never Smoked - CARDIAC Hx Hypercholesterolemia: Yes Hx Hypertension: Yes - PULMONARY Hx Asthma: Yes Hx Chronic Obstructive Pulmonary Disease (COPD): Yes - NEUROLOGICAL Hx Seizures: No - HEENT Hx HEENT Problems: Yes Hx Cataracts: Yes (right eye) Hx Glaucoma: Yes (left eye) Other/Comment: [place] LEFT EAR - RENAL Hx Chronic Kidney Disease: No - HEMATOLOGICAL/ONCOLOGICAL Hx Anemia: Yes - INTEGUMENTARY Hx Dermatological Problems: No - MUSCULOSKELETAL/RHEUMATOLOGICAL Hx Arthritis: Yes (R HIP; BACK) Hx Fractures: Yes (left wrist AND RT. HIP) Hx Osteoporosis: Yes Hx Rheumatoid Arthritis: Yes - GASTROINTESTINAL Hx Gastritis: Yes - GENITOURINARY/GYNECOLOGICAL Hx Genitourinary Disorders: Yes Other/Comment: fibroid surgery - PSYCHIATRIC Hx Anxiety: Yes Hx Substance Use: No - SURGICAL HISTORY Hx Coronary Stent: Yes (cad cath 02/2016 with stent) - ANESTHESIA Hx Anesthesia: Yes Hx Anesthesia Reactions: No Hx Malignant Hyperthermia: No Meds Home Medications: Home Medication List Medication Instructions Recorded Confirmed Type amLODIPine [Norvasc] 10 mg PO DAILY #30 tab 11/02/17 Rx Allergies/Adverse Reactions: Allergies Allergy/AdvReac Type Severity Reaction Status Date / Time No Known Allergies Allergy Verified 10/31/17 23:35 - Medications Medications: Current Medications Albuterol (Ventolin Hfa 90 Mcg/Actuation (8 G)) 1 puff INH RQ4 PRN PRN Reason: Shortness of Breath Alprazolam (Xanax) 1 mg PO DAILY [facility] Last Admin: 11/01/17 09:20 Dose: 1 mg Amlodipine Besylate (Norvasc) 10 mg PO DAILY [facility] Last Admin: 11/01/17 09:20 Dose: 10 mg Brimonidine Tartrate (Alphagan 0.2% Opht) 0 ml OU DAILY [facility] Last Admin: 11/01/17 11:00 Dose: 1 drop Dextrose (Dextrose 50% Inj) 0 ml IV STAT PRN; Protocol PRN Reason: Hypoglycemia Protocol Dextrose (Glutose 15) 0 gm PO ONCE PRN; Protocol PRN Reason: Hypoglycemia Protocol Docusate Sodium (Colace) 100 mg PO DAILY [facility] Last Admin: 11/01/17 09:20 Dose: 100 mg Enoxaparin Sodium (Lovenox) 30 mg SC DAILY [facility] Last Admin: 11/01/17 09:20 Dose: 30 mg Famotidine (Pepcid) 20 mg PO DAILY [facility] Last Admin: 11/01/17 09:20 Dose: 20 mg Ferrous Sulfate (Feosol) 325 mg PO BID [facility] Last Admin: 11/01/17 17:18 Dose: 325 mg Furosemide (Lasix) 40 mg PO DAILY [facility] Last Admin: 11/01/17 09:20 Dose: 40 mg Glucagon (Glucagen Diagnostic Kit) 0 mg IM STAT PRN; Protocol PRN Reason: Hypoglycemia Protocol Dextrose (Dextrose 5% In Water 1000 Ml) 1,000 mls @ 0 mls/hr IV .Q0M PRN; Protocol; Per Protocol PRN Reason: Hypoglycemia Protocol Insulin Human Regular (Novolin R) 0 unit SC ACHS [facility] PRN Reason: Protocol Last Admin: 11/01/17 21:32 Dose: Not Given Losartan Potassium (Cozaar) 25 mg PO DAILY [facility] Last Admin: 11/01/17 09:20 Dose: 25 mg Meclizine HCl (Antivert) 12.5 mg PO BID [facility] Last Admin: 11/01/17 17:20 Dose: 12.5 mg Rosuvastatin Calcium (Crestor) 5 mg PO [facility] Last Admin: 11/01/17 22:03 Dose: 5 mg Results - Vital Signs Recent Vital Signs: Last Vital Signs Temp 97.5 F L 11/01/17 17:06 Pulse 60 11/01/17 19:37 Resp 18 11/01/17 17:06 BP 93/50 L 11/01/17 17:06 Pulse Ox 97 11/01/17 17:06 - Labs Result Diagrams: 11/02/17 07:11 11/02/17 07:11 Labs: Laboratory Results - last 24 hr 10/31/17 10/31/17 10/31/17 23:56 23:56 23:56 WBC 5.5 RBC 3.42 L Hgb 9.5 L Hct 28.8 L MCV 84.2 MCH 27.7 MCHC 32.9 L RDW 16.1 H Plt Count 244 MPV 8.8 Neut % (Auto) 60.9 Lymph % (Auto) 23.4 [place] % (Auto) 11.8 H Eos % (Auto) 3.2 Baso % (Auto) 0.7 Neut # (Auto) 3.4 Lymph # (Auto) 1.3 [place] # (Auto) 0.6 Eos # (Auto) 0.2 Baso # (Auto) 0.0 PT 11.9 INR 1.1 APTT 32 Sodium 138 Potassium 4.4 Chloride 94 L Carbon Dioxide 27 Anion Gap 21 H BUN 46 H Creatinine 1.5 H Est GFR ( Amer) 40 Est GFR (Non-Af Amer) 33 POC Glucose (mg/dL) Random Glucose 169 H Calcium 9.1 Phosphorus Magnesium Total Bilirubin 0.5 AST 31 ALT 9 D Alkaline Phosphatase 78 Troponin I 0.0200 Total Protein 7.9 Albumin 4.1 Globulin 3.8 Albumin/Globulin Ratio 1.1 Urine Color Urine Clarity Urine pH Ur Specific [place] Urine Protein Urine Glucose (UA) Urine Ketones Urine Blood Urine Nitrate Urine Bilirubin Urine Urobilinogen Ur Leukocyte Esterase Urine WBC (Auto) Urine RBC (Auto) Ur Squamous Epith Cells Hyaline Casts 11/01/17 11/01/17 11/01/17 00:34 06:23 07:13 WBC 4.9 RBC 3.20 L Hgb 9.0 L Hct 26.8 L MCV 83.6 MCH 28.1 MCHC 33.6 RDW 16.0 H Plt Count 256 MPV 8.6 Neut % (Auto) 51.6 Lymph % (Auto) 32.0 [place] % (Auto) 11.5 H Eos % (Auto) 4.0 Baso % (Auto) 0.9 Neut # (Auto) 2.5 Lymph # (Auto) 1.6 [place] # (Auto) 0.6 Eos # (Auto) 0.2 Baso # (Auto) 0.0 PT INR APTT Sodium Potassium Chloride Carbon Dioxide Anion Gap BUN Creatinine Est GFR ( Amer) Est GFR (Non-Af Amer) POC Glucose (mg/dL) 138 H Random Glucose Calcium Phosphorus Magnesium Total Bilirubin AST ALT Alkaline Phosphatase Troponin I Total Protein Albumin Globulin Albumin/Globulin Ratio Urine Color Straw Urine Clarity Clear Urine pH 5.0 Ur Specific [place] 1.006 Urine Protein Negative Urine Glucose (UA) Normal Urine Ketones Negative Urine Blood Negative Urine Nitrate Negative Urine Bilirubin Negative Urine Urobilinogen Normal Ur Leukocyte Esterase 1+ H Urine WBC (Auto) 8 H Urine RBC (Auto) 1 Ur Squamous Epith Cells 9 H Hyaline Casts 3-5 H 11/01/17 11/01/17 11/01/17 07:13 07:13 11:19 WBC RBC Hgb Hct MCV MCH MCHC RDW Plt Count MPV Neut % (Auto) Lymph % (Auto) [place] % (Auto) Eos % (Auto) Baso % (Auto) Neut # (Auto) Lymph # (Auto) [place] # (Auto) Eos # (Auto) Baso # (Auto) PT INR APTT Sodium 140 Potassium 4.1 Chloride 97 L Carbon Dioxide 31 H Anion Gap 17 BUN 45 H Creatinine 1.4 H Est GFR ( Amer) 43 Est GFR (Non-Af Amer) 36 POC Glucose (mg/dL) 239 H Random Glucose 137 H Calcium 8.7 Phosphorus 4.3 Magnesium 2.0 Total Bilirubin 0.4 AST 37 H ALT 13 Alkaline Phosphatase 69 Troponin I 0.0590 Total Protein 7.2 Albumin 3.8 Globulin 3.4 Albumin/Globulin Ratio 1.1 Urine Color Urine Clarity Urine pH Ur Specific [place] Urine Protein Urine Glucose (UA) Urine Ketones Urine Blood Urine Nitrate Urine Bilirubin Urine Urobilinogen Ur Leukocyte Esterase Urine WBC (Auto) Urine RBC (Auto) Ur Squamous Epith Cells Hyaline Casts 11/01/17 11/01/17 11/01/17 13:56 16:45 21:18 WBC RBC Hgb Hct MCV MCH MCHC RDW Plt Count MPV Neut % (Auto) Lymph % (Auto) [place] % (Auto) Eos % (Auto) Baso % (Auto) Neut # (Auto) Lymph # (Auto) [place] # (Auto) Eos # (Auto) Baso # (Auto) PT INR APTT Sodium Potassium Chloride Carbon Dioxide Anion Gap BUN Creatinine Est GFR ( Amer) Est GFR (Non-Af Amer) POC Glucose (mg/dL) 131 H 146 H Random Glucose Calcium Phosphorus Magnesium Total Bilirubin AST ALT Alkaline Phosphatase Troponin I 0.0510 Total Protein Albumin Globulin Albumin/Globulin Ratio Urine Color Urine Clarity Urine pH Ur Specific [place] Urine Protein Urine Glucose (UA) Urine Ketones Urine Blood Urine Nitrate Urine Bilirubin Urine Urobilinogen Ur Leukocyte Esterase Urine WBC (Auto) Urine RBC (Auto) Ur Squamous Epith Cells Hyaline Casts Assessment & Plan - Assessment and Plan (Free Text) Assessment: 1.) Acute chest pain - Troponin NEGATIVE - f/u trop x2 - EKG interpreted by ED attending - Sinus Rhythm (74), L BBB, Nonspecific Changes (unchanged from 07/01/17 or 03/20/17 or 10/03/17) - f/u chest x-ray 2.) History of COPD - Ventolin prn 3.) History of Anemia - Monitor H/H - ferrous sulfate 325mg PO TID Anemia Work-up (12/06/2016): - Iron: 39, TIBC: 325, %SAT: 12 and Ferritin: 9.0 4.) Constipation - Colace 100mg po daily 5.) History of Diabetes mellitus - HgbA1C in 06/22 was 9.2 - Hemoglobin A1C: 7.4 (10/04/17) - Accuchecks - ISS - low dose - Hypoglycemia protocol 5.) History of CAD (coronary artery disease) - ECHO (01/22/17): EF 52% - ASA 81mg PO QD - Crestor 5mg po HS 6.) History of Hypertension - Norvasc 10mg po daily - Losartan 25mg daily 7.) History of Anxiety - Xanax 1mg po daily 8.) Prophylactic measure - SCDs - Lovenox 30mg SC daily - Pepcid 20mg PO daily - Heart healthy diet - Ensure x3 - PT eval and treat
[2017-11-02 07:32] LABS: BASO % 0.4 % (0.0-2.0); EOS # 0.3 K/uL (0.0-0.7); HEMOGLOBIN 9.1 g/dL (11.0-16.0); LYMPH # 1.6 K/uL (1.0-4.3); LYMPH % 38.8 % (20.0-40.0); MEAN CELL VOLUME 84.4 fL (81.0-99.0); MEAN CORPUSCULAR HEMOGLOBIN 27.9 pg (27.0-31.0); MEAN CORPUSCULAR HGB CONC 33.1 g/dL (33.0-37.0); MEAN PLATELET VOLUME 8.6 fL (7.2-11.7); MONO # 0.5 K/uL (0.0-0.8); MONO % 11.9 % (0.0-10.0); NEUT # 1.7 K/uL (1.8-7.0); NEUT % 40.9 % (50.0-75.0); NRBC % 0.1 % (0.0-2.0); RBC 3.25 Mil/uL (3.80-5.20); RED CELL DISTRIBUTION WIDTH 16.1 % (11.5-14.5); WHITE BLOOD COUNT 4.3 K/uL (4.8-10.8)
[2017-11-02 07:37] LABS: ALBUMIN 3.7 g/dL (3.5-5.0); CALCIUM 8.8 mg/dl (8.6-10.4)
[2017-11-02 08:07] LABS: FERRITIN 63.2 ng/mL
[2017-11-02] MEDS: (Novolin R) Insulin Human Regular 100 units/ml vial SC SCH ×3 (08:23→16:12)
[2017-11-02] MEDS ORDERED: Bisacodyl 5mg EC Tab PO ONE (09:45)
[2017-11-02] MEDS: Enoxaparin 30 mg Syringe SC SCH (09:50)
[2017-11-02] MEDS: Brimonidine 0.2% Opth Sol (5ml) OU SCH (09:51)
--- NOTE | 2017-11-02 10:50 | CP.PCM.PN ---
Subjective - Date & Time of Evaluation Date of Evaluation: 11/02/17 Time of Evaluation: 09:10 - Subjective Subjective: PGY2 Cardiology Progress Note for Dr. Hernandez Patient seen and examined at bedside. No acute distress. Patient denies chest pain, SOB, or LE edema. Sensation of chest pressure has resolved since being restarted on her medications. 12-point review of systems is otherwise negative without any additional acute complaints. Objective - Vital Signs/Intake and Output Vital Signs (last 24 hours): Temp Pulse Resp BP Pulse Ox 98.5 F 62 18 147/69 96 11/02/17 08:18 11/02/17 08:18 11/02/17 08:18 11/02/17 09:49 11/01/17 23:28 Intake and Output: 11/02/17 11/02/17 06:59 18:59 Intake Total 120 Balance 120 - Medications Medications: Current Medications Albuterol (Ventolin Hfa 90 Mcg/Actuation (8 G)) 1 puff INH RQ4 PRN PRN Reason: Shortness of Breath Alprazolam (Xanax) 1 mg PO DAILY [facility] Last Admin: 11/01/17 09:20 Dose: 1 mg Amlodipine Besylate (Norvasc) 10 mg PO DAILY [facility] Last Admin: 11/02/17 09:49 Dose: 10 mg Brimonidine Tartrate (Alphagan 0.2% Opht) 0 ml OU DAILY [facility] Last Admin: 11/02/17 09:51 Dose: 1 drop Dextrose (Dextrose 50% Inj) 0 ml IV STAT PRN; Protocol PRN Reason: Hypoglycemia Protocol Dextrose (Glutose 15) 0 gm PO ONCE PRN; Protocol PRN Reason: Hypoglycemia Protocol Docusate Sodium (Colace) 100 mg PO DAILY [facility] Last Admin: 11/02/17 09:50 Dose: 100 mg Enoxaparin Sodium (Lovenox) 30 mg SC DAILY [facility] Last Admin: 11/02/17 09:50 Dose: 30 mg Famotidine (Pepcid) 20 mg PO DAILY [facility] Last Admin: 11/02/17 09:50 Dose: 20 mg Ferrous Sulfate (Feosol) 325 mg PO BID [facility] Last Admin: 11/02/17 09:49 Dose: 325 mg Furosemide (Lasix) 40 mg PO DAILY [facility] Last Admin: 11/02/17 09:49 Dose: 40 mg Glucagon (Glucagen Diagnostic Kit) 0 mg IM STAT PRN; Protocol PRN Reason: Hypoglycemia Protocol Dextrose (Dextrose 5% In Water 1000 Ml) 1,000 mls @ 0 mls/hr IV .Q0M PRN; Protocol; Per Protocol PRN Reason: Hypoglycemia Protocol Insulin Human Regular (Novolin R) 0 unit SC ACHS [facility] PRN Reason: Protocol Last Admin: 11/02/17 08:23 Dose: 3 unit Losartan Potassium (Cozaar) 25 mg PO DAILY [facility] Last Admin: 11/02/17 09:48 Dose: 25 mg Meclizine HCl (Antivert) 12.5 mg PO BID [facility] Last Admin: 11/02/17 09:50 Dose: 12.5 mg Rosuvastatin Calcium (Crestor) 5 mg PO HS [facility] Last Admin: 11/01/17 22:03 Dose: 5 mg - Labs Labs: 11/02/17 07:11 11/02/17 07:11 PT 11.9 SECONDS (9.7-12.2) 10/31/17 23:56 INR 1.1 10/31/17 23:56 APTT 32 SECONDS (21-34) 10/31/17 23:56 - Additional Findings Additional findings: - Constitutional Appears: No Acute Distress - Head Exam Head Exam: ATRAUMATIC, NORMAL INSPECTION - Eye Exam Eye Exam: EOMI, Normal appearance - ENT Exam ENT Exam: Mucous Membranes Moist - Respiratory Exam Respiratory Exam: Clear to Auscultation Bilateral, NORMAL BREATHING PATTERN. absent: Rales, Rhonchi, Wheezes, Stridor - Cardiovascular Exam Cardiovascular Exam: REGULAR RHYTHM, RRR, +S1, +S2 - GI/Abdominal Exam GI & Abdominal Exam: Normal Bowel Sounds, Soft. absent: Tenderness - Extremities Exam Extremities exam: Positive for: normal inspection - Neurological Exam Neurological exam: Alert, Oriented x3 - Psychiatric Exam Psychiatric exam: Normal Affect, Normal Mood - Skin Skin Exam: Dry, Intact, Normal Color Assessment and Plan - Assessment and Plan (Free Text) Assessment: Acute Non-Cardiac Chest pain 11/02: No further cardiac workup at this time - Troponin NEGATIVE x3 - EKG - Sinus Rhythm (74), L BBB, Nonspecific Changes (unchanged from 07/01/17 or 03/20/17 or 10/03/17) - f/u chest x-ray History of CAD (coronary artery disease) - ECHO (01/22/17): EF 52% - ASA 81mg PO QD - Crestor 5mg po HS History of Hypertension 11/02: BP 104/58, stable, continue to monitor - Norvasc 10mg po daily - Losartan 25mg daily - Continue lasix 40mg PO qD Case Discussed with Dr. David Arce, PGY2
--- NOTE | 2017-11-02 13:36 | CARD ---
APPROVED REPORT EKG Measurement Heart [id number] [id number] <Conclusion> Sinus bradycardia Nonspecific intraventricular block Nonspecific T wave abnormality Abnormal ECG
[2017-11-02 15:43] VITALS: BP 110/57; PULSE 72; RESP 20; TEMP 98.3; O2SAT 95
--- NOTE | 2017-11-02 18:37 | CP.PCM.DIS ---
Provider - Provider Date of Admission: 11/01/17 01:16 Attending physician: Torie Wright DO Consults: Cardio - David Time Spent in preparation of Discharge (in minutes): 30 Hospital Course - Lab Results Lab Results: Most Recent Lab Values WBC 4.3 K/uL (4.8-10.8) L 11/02/17 07:11 RBC 3.25 Mil/uL (3.80-5.20) L 11/02/17 07:11 Hgb 9.1 g/dL (11.0-16.0) L 11/02/17 07:11 Hct 27.4 % (34.0-47.0) L 11/02/17 07:11 MCV 84.4 fL (81.0-99.0) 11/02/17 07:11 MCH 27.9 pg (27.0-31.0) 11/02/17 07:11 MCHC 33.1 g/dL (33.0-37.0) 11/02/17 07:11 RDW 16.1 % (11.5-14.5) H 11/02/17 07:11 Plt Count 231 K/uL (130-400) 11/02/17 07:11 MPV 8.6 fL (7.2-11.7) 11/02/17 07:11 Neut % (Auto) 40.9 % (50.0-75.0) L 11/02/17 07:11 Lymph % (Auto) 38.8 % (20.0-40.0) 11/02/17 07:11 [place] % (Auto) 11.9 % (0.0-10.0) H 11/02/17 07:11 Eos % (Auto) 8.0 % (0.0-4.0) H 11/02/17 07:11 Baso % (Auto) 0.4 % (0.0-2.0) 11/02/17 07:11 Neut # (Auto) 1.7 K/uL (1.8-7.0) L 11/02/17 07:11 Lymph # (Auto) 1.6 K/uL (1.0-4.3) 11/02/17 07:11 [place] # (Auto) 0.5 K/uL (0.0-0.8) 11/02/17 07:11 Eos # (Auto) 0.3 K/uL (0.0-0.7) 11/02/17 07:11 Baso # (Auto) 0.0 K/uL (0.0-0.2) 11/02/17 07:11 PT 11.9 SECONDS (9.7-12.2) 10/31/17 23:56 INR 1.1 10/31/17 23:56 APTT 32 SECONDS (21-34) 10/31/17 23:56 Sodium 138 mmol/L (132-148) 11/02/17 07:11 Potassium 4.4 mmol/L (3.6-5.2) 11/02/17 07:11 Chloride 95 mmol/L (98-107) L 11/02/17 07:11 Carbon Dioxide 31 mmol/L (22-30) H 11/02/17 07:11 Anion Gap 17 (10-20) 11/02/17 07:11 BUN 46 mg/dL (7-17) H 11/02/17 07:11 Creatinine 1.7 mg/dL (0.7-1.2) H 11/02/17 07:11 Est GFR ( Amer) 34 11/02/17 07:11 Est GFR (Non-Af Amer) 28 11/02/17 07:11 POC Glucose (mg/dL) 147 mg/dL (65-110) H 11/02/17 16:00 Random Glucose 159 mg/dL (65-105) H 11/02/17 07:11 Calcium 8.8 mg/dl (8.6-10.4) 11/02/17 07:11 Phosphorus 3.8 mg/dL (2.5-4.5) 11/02/17 07:11 Magnesium 2.2 mg/dL (1.6-2.3) 11/02/17 07:11 % Saturation 46 (20-55) 11/02/17 07:11 Ferritin 63.2 ng/mL 11/02/17 07:11 Total Bilirubin 0.4 mg/dL (0.2-1.3) 11/02/17 07:11 AST 24 U/L (14-36) 11/02/17 07:11 ALT 11 U/L (9-52) 11/02/17 07:11 Alkaline Phosphatase 69 U/L (38-126) 11/02/17 07:11 Troponin I 0.0510 ng/mL (0.00-0.120) 11/01/17 13:56 Total Protein 7.3 g/dL (6.3-8.3) 11/02/17 07:11 Albumin 3.7 g/dL (3.5-5.0) 11/02/17 07:11 Globulin 3.6 gm/dL (2.2-3.9) 11/02/17 07:11 Albumin/Globulin Ratio 1.0 (1.0-2.1) 11/02/17 07:11 Urine Color Straw (YELLOW) 11/01/17 00:34 Urine Clarity Clear (Clear) 11/01/17 00:34 Urine pH 5.0 (5.0-8.0) 11/01/17 00:34 Ur Specific [place] 1.006 (1.003-1.030) 11/01/17 00:34 Urine Protein Negative mg/dL (NEGATIVE) 11/01/17 00:34 Urine Glucose (UA) Normal mg/dL (Normal) 11/01/17 00:34 Urine Ketones Negative mg/dL (NEGATIVE) 11/01/17 00:34 Urine Blood Negative (NEGATIVE) 11/01/17 00:34 Urine Nitrate Negative (NEGATIVE) 11/01/17 00:34 Urine Bilirubin Negative (NEGATIVE) 11/01/17 00:34 Urine Urobilinogen Normal mg/dL (0.2-1.0) 11/01/17 00:34 Ur Leukocyte Esterase 1+ [place]/uL (Negative) H 11/01/17 00:34 Urine WBC (Auto) 8 /hpf (0-5) H 11/01/17 00:34 Urine RBC (Auto) 1 /hpf (0-3) 11/01/17 00:34 Ur Squamous Epith Cells 9 /hpf (0-5) H 11/01/17 00:34 Hyaline Casts 3-5 /lpf (0-2) H 11/01/17 00:34 - Hospital Course Hospital Course: As per admission documentation 86 year old female with past medical history of CAD, HTN, DM, gastritis, asthma , arthritis, COPD, anxiety who presents to the ER for chest pain. Patient states the chest pain has been going on for 2 weeks but it was worse today ( Sunday evening) while she was in bed. Patient states the pain was constant until she arrived to the ER. She stated the pain felt like her chest was enlarged and she felt pressure. She also states she has not been able to take her medications for a few days because they have not delivered them yet. Patient currently denies chest pain, palpitations, shortness of breath, nausea, vomiting or fever. Hospital Course Patient was admitted for chest pain rule out ACS. Cardiology was consulted, Dr. Hernandez. Troponin negative x 3. EKG interpreted by ED attending - Sinus Rhythm (74) , L BBB, Nonspecific Changes (unchanged from 07/01/17 or 03/20/17 or 10/03/17). chest x-ray - Chronic changes right lung apex. Mild cardiomegaly/ tortuous partly calcified thoracic aorta- stable appearing since 2016 Patient's chest pain resolved upon arrival to the hospital. She was stable throughout her admission. She was monitor for a full 24 hours and then was discharged home with instructions to continue her current medication regiment with the addition of Norvasc. She was given the following instructions upon discharge. Discharge instructions Patient is to be discharged home per Dr. Wright. Patient is to follow up with her primary care physician in one week of being discharged. She is to follow up with Dr. Hernandez in his office within 2 weeks of being discharged. Patient is to continue to take her medications as previously prescribed by her primary care physician. She is being given one new prescription for Norvasc 10 mg PO daily at this time. Patient is to be evaluated and treated by home PT. Patient is to have a home visiting nurse for management of diabetes. If patient experiences any new or worsening symptoms, please go to the nearest emergency room. New Prescriptions given: Norvasc 10 mg PO daily - disp 30 tabs This is just a brief summary of the patient's hospital events. For full detail, please see EMR. Physical Exam Appears: Non-toxic, No Acute Distress Head Exam: ATRAUMATIC, NORMOCEPHALIC Eye Exam: EOMI, Normal appearance ENT Exam: Mucous Membranes Moist Respiratory Exam: Clear to Ausculation Bilateral, NORMAL BREATHING PATTERN. absent: Accessory Muscle Use, Rales, Rhonchi, Wheezes, Respiratory Distress Cardiovascular Exam: REGULAR RHYTHM (Mid 60s in NSR on tele), +S1, +S2 GI & Abdominal Exam: Soft, Normal Bowel Sounds. absent: Distended, Firm, Guarding, Rigid, Tenderness Extremities Exam: absent: Calf Tenderness, Pedal Edema Neurological Exam: Alert, Awake, Oriented x3 Psychiatric exam: Normal Affect, Normal Mood Skin Exam: Dry, Warm Discharge Exam - Head Exam Head Exam: ATRAUMATIC, NORMOCEPHALIC Discharge Plan - Discharge Medications Prescriptions: amLODIPine [Norvasc] 10 mg PO DAILY #30 tab - Follow Up Plan Condition: FAIR Disposition: HOME/ ROUTINE Instructions: Chest Pain (DC), Amlodipine Additional Instructions: Patient is to be discharged home per Dr. Wright. Patient is to follow up with her primary care physician in one week of being discharged. She is to follow up with Dr. Hernandez in his office within 2 weeks of being discharged. Patient is to continue to take her medications as previously prescribed by her primary care physician. She is being given one new prescription for Norvasc 10 mg PO daily at this time. Patient is to be evaluated and treated by home PT. Patient is to have a home visiting nurse for management of diabetes. If patient experiences any new or worsening symptoms, please go to the nearest emergency room. New Prescriptions given: Norvasc 10 mg PO daily - disp 30 tabs Referrals: Andrew Hernandez MD [Staff Provider] - 2 Weeks
== END 2017-11-02 19:27 | disposition home or self-care (01) ==
LOC: C.ER 23:20 → C.5S 11-01 01:16
PROVIDERS: ADMIT Hospitalist; ATTEND Hospitalist
DX: R07.9 Chest pain, unspecified (principal); E11.9 Type 2 diabetes mellitus without complications; E78.00 Pure hypercholesterolemia, unspecified; E78.5 Hyperlipidemia, unspecified; H40.9 Unspecified glaucoma; I11.9 Hypertensive heart disease without heart failure; I70.0 Atherosclerosis of aorta; I25.10 Atherosclerotic heart disease of native coronary artery without angina pectoris; J44.9 Chronic obstructive pulmonary disease, unspecified; K59.00 Constipation, unspecified; M06.9 Rheumatoid arthritis, unspecified; M81.0 Age-related osteoporosis without current pathological fracture; Z79.82 Long term (current) use of aspirin; Z79.899 Other long term (current) drug therapy; Z95.5 Presence of coronary angioplasty implant and graft
CPT/HCPCS: 36415; 71045; 80053; 81001; 82728; 82948; 83735; 84100; 84484; 85025; 85610; 85730; 93005; 97116; 97162; 99285; G0378; G8978; G8979; J1650

== ENCOUNTER 2017-11-14 18:25 | Inpatient (IN) | payer MEDICARE, MEDICAID ==
[2017-11-14 18:26] VITALS: BMI 21.4
[2017-11-14] MEDS ORDERED: Albuterol-Ipratrop 3 mg / 0.5 (3 ml) UD INH STA ×3 (19:04→19:06)
--- NOTE | 2017-11-14 19:08 | C.PDOC ---
History Of Present Illness 86 y/o female presents to the ED complaining of chest pain since this morning. Associated with shortness of breath. Patient states she used her nebulizer 1 hour ago with minimal improvement. Also complaining of congestion and cough. Denies any fever or chills. Time Seen by Provider: 11/14/17 19:04 Chief Complaint (Nursing): Chest Pain History Per: Patient History/Exam Limitations: no limitations Onset/Duration Of Symptoms: Days (x1) Current Symptoms Are (Timing): Still Present Associated Symptoms: Dyspnea Past Medical History Reviewed: Historical Data, Nursing Documentation, Vital Signs Vital Signs: Last Vital Signs Temp 98 F 11/14/17 18:35 Pulse 89 11/14/17 18:35 Resp 18 11/14/17 18:35 BP 126/69 11/14/17 18:35 Pulse Ox 98 11/14/17 20:38 - Medical History PMH: Anemia, Anxiety, Arthritis (R HIP; BACK), Asthma, Back Problems (HX CHRONIC BACK PAIN), CAD, COPD, Diabetes, Fractures (left wrist AND RT. HIP), Gastritis, HTN, Hypercholesterolemia, Hyperlipidemia, Osteoporosis, Rheumatoid Arthritis Denies: Chronic Kidney Disease, Seizures Surgical History: Coronary St[facility] (cad [facility] 02/2016 with [facility] APPLICATION OF SPLINT (06/18/14) EXCISION OF ASCENDING COLON, ENDO, DIAGN (12/05/16) EXCISION OF STOMACH, ENDO, DIAGN (12/05/16) FLUOROSCOPY OF LEFT HEART USING LOW OSMOLAR CONTRAST (02/05/16) GAIT TRAINING/AMBULAT TREATMENT USING ASSIST EQUIPMENT (11/08/15) INTRODUCE ANTI-INFLAM IN PERIPH NRV, PLEXI, PERC (11/08/15) INTRODUCE REGIONAL ANESTH IN PERIPH NRV, PLEXI, PERC (11/08/15) MEASURE OF CARDIAC SAMPL & PRESSURE, L HEART, PERC APPROACH (02/05/16) NEBULIZER THERAPY (06/16/14) REPAIR LEFT UPPER ARM TENDON, OPEN APPROACH (11/08/15) REPAIR OF HAMMER TOE (07/17/13) REPOSITION LEFT HUMERAL SHAFT WITH INT FIX, OPEN APPROACH (11/08/15) TRANSFUSE NONAUT RED BLOOD CELLS IN PERIPH VEIN, PERC (12/05/16) Family History: States: Unknown Family Hx - Social History Hx Tobacco Use: No Hx Alcohol Use: No Hx Substance Use: No - Immunization History Hx Tetanus Toxoid Vaccination: Yes (3 mos. ago) Hx Influenza Vaccination: No Hx Pneumococcal Vaccination: No Review Of Systems Except As Marked, All Systems Reviewed And Found Negative. Constitutional: Negative for: Fever, Chills, Sweats ENT: Positive for: Nose Congestion Cardiovascular: Positive for: Chest Pain Respiratory: Positive for: Cough, Shortness of Breath Gastrointestinal: Negative for: Nausea, Vomiting Physical Exam - Physical Exam Appears: Non-toxic, No Acute Distress Skin: Normal Color, Warm, Dry Head: Atraumatic, Normacephalic Eye(s): bilateral: Normal Inspection, PERRL, EOMI Oral Mucosa: Moist Neck: Normal ROM Chest: Tenderness (to chest wall on palpation) Cardiovascular: Rhythm Regular Respiratory: Rhonchi (bilateral), Wheezing (bilateral), No Other (respiratory distress) Gastrointestinal/Abdominal: Soft, No Tenderness, No Distention Extremity: Bilateral: Atraumatic, Normal Color And Temperature, Normal ROM Pulses: Left Dorsalis Pedis: Normal, Right Dorsalis Pedis: Normal Neurological/Psych: Oriented x3, Normal Speech Gait: Steady ED Course And Treatment - Laboratory Results Result Diagrams: 11/14/17 19:22 11/14/17 19:22 ECG: Interpreted By Me, Viewed By Me ECG Rhythm: Sinus Rhythm, L BBB ECG Interpretation: No Acute Changes, Abnormal Interpretation Of ECG: NSR, CLBBB with secondary ST-T changes. Abnormal tracings Rate From EC O2 Sat by Pulse Oximetry: 98 (RA) Pulse Ox Interpretation: Normal - Radiology CXR: Interpreted by Me, Viewed By Me CXR Interpretation: Yes: No Acute Disease, Other (fibrotic changes noted in Right apical area). No: Infiltrates Medical Decision Making Medical Decision Making: Time: 19:06 Initial Plan: * Labs * EKG * Chest x-ray * Duoneb 3 ml INH x3 * Solu-medrol 125 mg IV * Toradol 30 mg IV * Peak Flow pre/post tx Progress: 20:27 On re-examination, patient is less dyspneic. Lung exam shows good air entry, occasional wheezes noted. 20:35 Case discussed with patient's PMD, Dr. Gomez, who advises to contact hospitalist. 20:36 Case discussed with hospitalist, Dr. Vidal, who accepts to admit the patient for observation. Disposition Discussed With DrTierney: Jose Vidal Doctor Will See Patient In The: Hospital Counseled Patient/Family Regarding: Diagnosis - Disposition Disposition: HOSPITALIZED Disposition Time: 20:43 Condition: STABLE Forms: [facility] (Greenlandic) - Clinical Impression Clinical Impression: Chest pain, COPD exacerbation, Diabetic nephropathy - Scribe Statement The provider has reviewed the documentation as recorded by the Scribe (Lakeshia Gonzalez) Provider Attestation: All medical record entries made by the Scribe were at my direction and personally dictated by me. I have reviewed the chart and agree that the record accurately reflects my personal performance of the history, physical exam, medical decision making, and the department course for this patient. I have also personally directed, reviewed, and agree with the discharge instructions and disposition.
[2017-11-14] MEDS ORDERED: Albuterol-Ipratrop 3 mg / 0.5 (3 ml) UD ONE (19:17)
[2017-11-14 19:27] LABS: BASO # 0.1 K/uL (0.0-0.2); EOS # 0.3 K/uL (0.0-0.7); EOS % 3.7 % (0.0-4.0); LYMPH # 1.3 K/uL (1.0-4.3); LYMPH % 16.2 % (20.0-40.0); MEAN CELL VOLUME 85.1 fL (81.0-99.0); MEAN CORPUSCULAR HEMOGLOBIN 27.7 pg (27.0-31.0); MEAN CORPUSCULAR HGB CONC 32.5 g/dL (33.0-37.0); MEAN PLATELET VOLUME 9.5 fL (7.2-11.7); MONO % 12.4 % (0.0-10.0); NEUT # 5.2 K/uL (1.8-7.0); NEUT % 66.7 % (50.0-75.0); RBC 2.9 Mil/uL (3.80-5.20); RED CELL DISTRIBUTION WIDTH 16.1 % (11.5-14.5); WHITE BLOOD COUNT 7.8 K/uL (4.8-10.8)
[2017-11-14 19:50] LABS: ALBUMIN 3.7 g/dL (3.5-5.0); ALT/SGPT 18 U/L (9-52); AST/SGOT 25 U/L (14-36); B-TYPE NATRIURETIC PEPTIDE 642 pg/mL (0-900); BLOOD UREA NITROGEN 53 mg/dL (7-17); CALCIUM 8.6 mg/dl (8.6-10.4); GFR AFRICAN-AMERICAN 30; GFR NON-AFRICAN AMERICAN 25
[2017-11-14] MEDS ORDERED: (Novolin R) Insulin Human Regular 100 units/ml vial SC STA (19:56)
[2017-11-14] MEDS ORDERED: (Novolin R) Insulin Human Regular 100 units/ml vial ONE (20:04)
[2017-11-14 20:43] LABS: PROTHROMBIN TIME 11.7 SECONDS (9.7-12.2)
[2017-11-14] MEDS ORDERED: Albuterol-Ipratrop 3 mg / 0.5 (3 ml) UD INH PRN (21:18)
[2017-11-14] MEDS ORDERED: Glucagon Recombinant 1 mg Inj IM PRN (21:26)
[2017-11-14] MEDS ORDERED: Dextrose 50% SYRINGE Inj (50 ml) IVP PRN (21:26)
--- NOTE | 2017-11-14 21:40 | CP.PCM.HP ---
<KaplanPerez - Last Filed: 11/14/17 22:47> History of Present Illness - History of Present Illness History of Present Illness: CC: COPD exacerbation 86 year old female with past medical history of COPD, HTN, CAD, anemia , DM, arthritis, and anxiety presents to the [facility] ED for shortness of breath and coughs. Patient reports her symptoms started last night. She has nonproductive coughs and wheezes which kept her up all night. Patient tried using inhaler pump and nebulizer with minimal relief. Patient also reports to have mid sternum chest pain and back pain associated with these coughs. Her symptoms did not improve with further additional nebulizer treatments this afternoon which prompted the patient to come to the emergency department. Patient denies fever, chills, headache, abdominal pain, nausea, vomiting, diarrhea, or urinary changes. Spoken to patient's daughter Rasta Curiel over the phone, stating there are no major health or medication changes since the last hospital discharge. Daughter: Rasta Curiel [phone] PMD: Dr. Gomez PMHx: CAD, HTN, DM, gastritis, asthma, arthritis, COPD, anxiety PSHx: hysterectomy and oopherectomy, cataract surgery, Cardiac cath 02/2016 with 2x stents Family History: Mother had asthma, heart disease, at age 92 Allergies: NKDA Social History: smoked 1ppd x 50 yrs, quit 20 yrs ago; social drinker in the past. Denies current tobacco, alcohol or other drug use Home meds: norvasc, ventolin inhaler, xanax, asa, brimonidine, colace, pepcid, ferrous sulfate, furosemide, insulin 70/30, insulin NPH, losartan, lubiprostone , meclizine, crestor Present on Admission - Present on Admission Any Indicators Present on Admission: No Review of Systems - Constitutional Constitutional: As Per HPI. absent: Chills, Fever - EENT Eyes: As Per HPI. absent: Blurred Vision, Discharge Ears: As Per HPI. absent: Ear Pain, Dizziness Nose/Mouth/Throat: As Per HPI. absent: Epistaxis, Nasal Trauma - Breasts Breasts: As Per HPI - Cardiovascular Cardiovascular: As Per HPI, Chest Pain, Chest Pain with Activity, Dyspnea. absent: Leg Edema, Palpitations - Respiratory Respiratory: As Per HPI, Cough, Dyspnea, Wheezing, Chest Congestion, Pain with Coughing. absent: Hemoptysis - Gastrointestinal Gastrointestinal: As Per HPI. absent: Abdominal Pain, Diarrhea, Nausea, Vomiting - Genitourinary Genitourinary: As Per HPI. absent: Dysuria, Flank Pain, Hematuria - Reproductive: Female Reproductive:Female: As Per HPI - Menstruation Menstruation: As Per HPI - Musculoskeletal Musculoskeletal: As Per HPI, Back Pain - Integumentary Integumentary: As Per HPI. absent: Change in Hair, Erythema - Neurological Neurological: As Per HPI. absent: Headaches, Tremor, Weakness - Psychiatric Psychiatric: As Per HPI. absent: Confusion, Depression - Endocrine Endocrine: As Per HPI - Hematologic/Lymphatic Hematologic: As Per HPI Past Patient History - Infectious Disease Hx of Infectious Diseases: None - Tetanus Immunizations Tetanus Immunization: Unknown - Past Medical History & Family History Past Medical History?: Yes - Past Social History Smoking Status: Never Smoked - CARDIAC Hx Hypercholesterolemia: Yes Hx Hypertension: Yes - PULMONARY Hx Asthma: Yes Hx Chronic Obstructive Pulmonary Disease (COPD): Yes - NEUROLOGICAL Hx Seizures: No - HEENT Hx HEENT Problems: Yes Hx Cataracts: Yes (right eye) Hx Glaucoma: Yes (left eye) Other/Comment: CAHUILLA LEFT EAR - RENAL Hx Chronic Kidney Disease: No - HEMATOLOGICAL/ONCOLOGICAL Hx Anemia: Yes - INTEGUMENTARY Hx Dermatological Problems: No - MUSCULOSKELETAL/RHEUMATOLOGICAL Hx Arthritis: Yes (R HIP; BACK) Hx Fractures: Yes (left wrist AND RT. HIP) Hx Osteoporosis: Yes Hx Rheumatoid Arthritis: Yes - GASTROINTESTINAL Hx Gastritis: Yes - GENITOURINARY/GYNECOLOGICAL Hx Genitourinary Disorders: Yes Other/Comment: fibroid surgery - PSYCHIATRIC Hx Anxiety: Yes Hx Substance Use: No - SURGICAL HISTORY Hx Coronary Stent: Yes (cad cath 02/2016 with stent) - ANESTHESIA Hx Anesthesia: Yes Hx Anesthesia Reactions: No Hx Malignant Hyperthermia: No Meds Allergies/Adverse Reactions: Allergies Allergy/AdvReac Type Severity Reaction Status Date / Time No Known Allergies Allergy Verified 10/31/17 23:35 Physical Exam - Constitutional Appears: Well, Non-toxic, No Acute Distress - Head Exam Head Exam: ATRAUMATIC, NORMOCEPHALIC - Eye Exam Eye Exam: EOMI, Normal appearance - ENT Exam ENT Exam: Mucous Membranes Moist Additional comments: Hard of hearing - Neck Exam Neck exam: Positive for: Normal Inspection - Respiratory Exam Respiratory Exam: Rhonchi, Wheezes, NORMAL BREATHING PATTERN. absent: Clear to Auscultation Bilateral, Respiratory Distress - Cardiovascular Exam Cardiovascular Exam: REGULAR RHYTHM, +S1, +S2 - GI/Abdominal Exam GI & Abdominal Exam: Normal Bowel Sounds, Soft. absent: Tenderness - Extremities Exam Extremities exam: Positive for: normal inspection, pedal pulses present. Negative for: tenderness - Neurological Exam Neurological exam: Alert, Oriented x3 - Psychiatric Exam Psychiatric exam: Normal Affect, Normal Mood - Skin Skin Exam: Normal Color, Warm Results - Vital Signs Recent Vital Signs: Last Vital Signs Temp 98 F 11/14/17 20:52 Pulse 89 11/14/17 20:52 Resp 18 11/14/17 20:52 BP 136/86 11/14/17 20:52 Pulse Ox 98 11/14/17 20:52 - Labs Result Diagrams: 11/14/17 19:22 11/14/17 19:22 Labs: Laboratory Results - last 24 hr 11/14/17 11/14/17 11/14/17 19:22 19:22 20:29 WBC 7.8 D RBC 2.90 L Hgb 8.0 L Hct 24.7 L MCV 85.1 MCH 27.7 MCHC 32.5 L RDW 16.1 H Plt Count 223 MPV 9.5 Neut % (Auto) 66.7 Lymph % (Auto) 16.2 L Austin % (Auto) 12.4 H Eos % (Auto) 3.7 Baso % (Auto) 1.0 Neut # (Auto) 5.2 Lymph # (Auto) 1.3 Austin # (Auto) 1.0 H Eos # (Auto) 0.3 Baso # (Auto) 0.1 PT 11.7 INR 1.0 APTT 30 D-Dimer, Quantitative 330 H Sodium 136 Potassium 4.5 Chloride 96 L Carbon Dioxide 26 Anion Gap 19 BUN 53 H Creatinine 1.9 H Est GFR ( Amer) 30 Est GFR (Non-Af Amer) 25 Random Glucose 280 H Calcium 8.6 Total Bilirubin 0.4 AST 25 ALT 18 Alkaline Phosphatase 59 Troponin I < 0.0120 NT-Pro-B Natriuret Pep 642 Total Protein 7.4 Albumin 3.7 Globulin 3.7 Albumin/Globulin Ratio 1.0 Assessment & Plan - Assessment and Plan (Free Text) Assessment: COPD exacerbation -98% O2 sat in room air -Duoneb 3ml q2 prn -Solu-medrol 40mg q12 -O2 via NC prn -Afebrile, no leukocytosis -No filtrates appreciated on CXR Chest pain -Resolved upon examination -Likely due to excessive coughing -EKG NSR @80bpm, left axis deviation, no acute ST changes, no change from previous EKG (11/01) -Troponin negative, repeats pending -AM EKG -Aspirin 81mg -Crestor 5mg -Cardiac cath 05/21 mid LAD 80% stenosis, 02/2016 with 2 stents -Echo 01/22/17 EF 52% HTN -Cozaar 25mg -Norvasc 10mg DM -A1C 10/2017 7.4 -Consistent Carb diet -ISS -FS ACHS -Hypoglycemia protocol Chronic Anemia -Ferrous sulfate 325mg bid -Monitor H/H Chronic constipation -colace 100mg Anxiety -Xanax 1mg Prophylactic measures -Pepcid -Lovenox <Jose Vidal - Last Filed: 11/15/17 06:01> Results - Vital Signs Recent Vital Signs: Last Vital Signs Temp 98.5 F 11/14/17 23:45 Pulse 80 11/14/17 23:45 Resp 20 11/14/17 23:45 BP 93/46 L 11/14/17 23:45 Pulse Ox 97 11/14/17 23:45 - Labs Result Diagrams: 11/14/17 19:22 11/14/17 19:22 Labs: Laboratory Results - last 24 hr 11/14/17 11/14/17 11/14/17 19:17 19:22 19:22 WBC 7.8 D RBC 2.90 L Hgb 8.0 L Hct 24.7 L MCV 85.1 MCH 27.7 MCHC 32.5 L RDW 16.1 H Plt Count 223 MPV 9.5 Neut % (Auto) 66.7 Lymph % (Auto) 16.2 L Austin % (Auto) 12.4 H Eos % (Auto) 3.7 Baso % (Auto) 1.0 Neut # (Auto) 5.2 Lymph # (Auto) 1.3 [place] # (Auto) 1.0 H Eos # (Auto) 0.3 Baso # (Auto) 0.1 PT INR APTT D-Dimer, Quantitative Sodium 136 Potassium 4.5 Chloride 96 L Carbon Dioxide 26 Anion Gap 19 BUN 53 H Creatinine 1.9 H Est GFR ( Amer) 30 Est GFR (Non-Af Amer) 25 POC Glucose (mg/dL) 276 H Random Glucose 280 H Calcium 8.6 Total Bilirubin 0.4 AST 25 ALT 18 Alkaline Phosphatase 59 Total Creatine Kinase CK-MB (Mass) Troponin I < 0.0120 NT-Pro-B Natriuret Pep 642 Total Protein 7.4 Albumin 3.7 Globulin 3.7 Albumin/Globulin Ratio 1.0 11/14/17 11/14/17 11/15/17 20:29 22:23 01:59 WBC RBC Hgb Hct MCV MCH MCHC RDW Plt Count MPV Neut % (Auto) Lymph % (Auto) Austin % (Auto) Eos % (Auto) Baso % (Auto) Neut # (Auto) Lymph # (Auto) [place] # (Auto) Eos # (Auto) Baso # (Auto) PT 11.7 INR 1.0 APTT 30 D-Dimer, Quantitative 330 H Sodium Potassium Chloride Carbon Dioxide Anion Gap BUN Creatinine Est GFR ( Amer) Est GFR (Non-Af Amer) POC Glucose (mg/dL) 303 H Random Glucose Calcium Total Bilirubin AST ALT Alkaline Phosphatase Total Creatine Kinase 27 L CK-MB (Mass) 0.30 Troponin I < 0.0120 NT-Pro-B Natriuret Pep Total Protein Albumin Globulin Albumin/Globulin Ratio 11/15/17 02:10 WBC RBC Hgb Hct MCV MCH MCHC RDW Plt Count MPV Neut % (Auto) Lymph % (Auto) Austin % (Auto) Eos % (Auto) Baso % (Auto) Neut # (Auto) Lymph # (Auto) [place] # (Auto) Eos # (Auto) Baso # (Auto) PT INR APTT D-Dimer, Quantitative Sodium Potassium Chloride Carbon Dioxide Anion Gap BUN Creatinine Est GFR ( Amer) Est GFR (Non-Af Amer) POC Glucose (mg/dL) 369 H Random Glucose Calcium Total Bilirubin AST ALT Alkaline Phosphatase Total Creatine Kinase CK-MB (Mass) Troponin I NT-Pro-B Natriuret Pep Total Protein Albumin Globulin Albumin/Globulin Ratio Assessment & Plan - Date & Time Date: 11/15/17 (I have seen and examined the patient. I agree with the findings and plan of care as documented by Dr. Kaplan. Patient with COPD exacerbation and chest pain. Continue home meds. Duonebs and solumedrol. Oxygen as needed. Statin and Aspirin. ROMIx3 with EKG. Tele. Monitor for acute changes.) Time: 06:00 Attending/Attestation - Attestation I have personally seen and examined this patient.: Yes I have fully participated in the care of the patient.: Yes I have reviewed all pertinent clinical information: Yes
[2017-11-14] MEDS: MethylPREDNISolone 40 mg Vial IVP SCH (22:10)
[2017-11-14 22:23] VITALS: RESP 20
[2017-11-14] MEDS: (Novolin R) Insulin Human Regular 100 units/ml vial SC SCH (22:33)
[2017-11-15] MEDS: (Novolin R) Insulin Human Regular 100 units/ml vial SC SCH ×5 (02:25→22:00)
[2017-11-15 07:53] LABS: BASO % 0.1 % (0.0-2.0); EOS % 0.1 % (0.0-4.0); HEMOGLOBIN 8.1 g/dL (11.0-16.0); LYMPH # 0.5 K/uL (1.0-4.3); LYMPH % 14.8 % (20.0-40.0); MEAN CELL VOLUME 83.4 fL (81.0-99.0); MEAN CORPUSCULAR HEMOGLOBIN 27.8 pg (27.0-31.0); MEAN CORPUSCULAR HGB CONC 33.4 g/dL (33.0-37.0); MEAN PLATELET VOLUME 9.1 fL (7.2-11.7); NEUT # 3.1 K/uL (1.8-7.0); NRBC % 0.1 % (0.0-2.0); RBC 2.92 Mil/uL (3.80-5.20); RED CELL DISTRIBUTION WIDTH 16.1 % (11.5-14.5)
[2017-11-15 07:55] LABS: WHITE BLOOD COUNT 3.7 K/uL (4.8-10.8)
--- NOTE | 2017-11-15 08:20 | RAD ---
Chest x-ray single frontal view History: Chest pain. Comparison: 10/03/2017 Findings: Curvilinear opacifications seen at the right lung apex with adjacent scattered nodularity suggestive for apical pleural thickening with prominent focal linear consolidation and/or scarring. Clinical correlation. Correlation with chest CT may be helpful if indicated. Biapical pleural thickening. Mild venous congestion. Mild patchy increased markings at the left lung base. Heart size within normal limits. Degenerative changes in the spine and shoulders. Impression: Curvilinear opacifications seen at the right lung apex with adjacent scattered nodularity suggestive for apical pleural thickening with prominent focal linear consolidation and/or scarring. Clinical correlation. Correlation with chest CT may be helpful if indicated. Biapical pleural thickening. Mild venous congestion. Mild patchy increased markings at the left lung base.
[2017-11-15] MEDS: Albuterol-Ipratrop 3 mg / 0.5 (3 ml) UD INH SCH ×4 (09:02→20:20)
[2017-11-15] MEDS ORDERED: Enoxaparin 40 mg Syringe SC SCH (10:00)
[2017-11-15 10:16] LABS: ALBUMIN 3.7 g/dL (3.5-5.0); ALT/SGPT 12 U/L (9-52); AST/SGOT 28 U/L (14-36); BLOOD UREA NITROGEN 58 mg/dL (7-17); GFR AFRICAN-AMERICAN 29; GFR NON-AFRICAN AMERICAN 24
[2017-11-15 10:27] LABS: CK-MB 0.27 ng/mL (0.0-3.38)
[2017-11-15] MEDS: Pantoprazole 40 mg EC Tab PO SCH (10:33)
[2017-11-15] MEDS: MethylPREDNISolone 40 mg Vial IVP SCH ×3 (10:33→21:53)
[2017-11-15] MEDS: Brimonidine 0.2% Opth Sol (5ml) OU SCH ×2 (10:55→18:27)
[2017-11-15] MEDS ORDERED: MethylPREDNISolone 40 mg Vial IVP SCH (11:00)
--- NOTE | 2017-11-15 16:17 | CP.PCM.PN ---
Subjective - Date & Time of Evaluation Date of Evaluation: 11/15/17 Time of Evaluation: 07:35 - Subjective Subjective: Patient seen and examined at bedside. Patient resting comfortably in bed. Patient complains of some mild SOB and lower back pain. She otherwise denies headache, fever, chills, chest pain, palpitations, cough, abdominal pain, n/v/d/ c, and calf pain. Objective - Vital Signs/Intake and Output Vital Signs (last 24 hours): Temp Pulse Resp BP Pulse Ox 97.7 F 80 20 101/52 L 95 11/15/17 08:21 11/15/17 12:00 11/15/17 08:21 11/15/17 12:00 11/15/17 08:21 Intake and Output: 11/15/17 11/15/17 06:59 18:59 Intake Total 240 400 Balance 240 400 - Medications Medications: Current Medications Albuterol/Ipratropium (Duoneb 3 Mg/0.5 Mg (3 Ml) Ud) 3 ml INH RQ2 PRN PRN Reason: Shortness of Breath Albuterol/Ipratropium (Duoneb 3 Mg/0.5 Mg (3 Ml) Ud) 3 ml INH RQ4 [facility] Last Admin: 11/15/17 11:01 Dose: 3 ml Alprazolam (Xanax) 1 mg PO DAILY [facility] Last Admin: 11/15/17 10:33 Dose: 1 mg Amlodipine Besylate (Norvasc) 10 mg PO DAILY [facility] Last Admin: 11/15/17 12:05 Dose: Not Given Aspirin (Ecotrin) 81 mg PO DAILY [facility] Last Admin: 11/15/17 10:33 Dose: 81 mg Brimonidine Tartrate (Alphagan 0.2% Opht) 0 ml OU BID [facility] Last Admin: 11/15/17 10:55 Dose: 1 drop Dextrose (Dextrose 50% Inj) 0 ml IVP .STAT PRN; Protocol PRN Reason: Hypoglycemia Protocol Dextrose (Glutose 15) 0 gm PO .ONCE PRN; Protocol PRN Reason: Hypoglycemia Protocol Docusate Sodium (Colace) 100 mg PO DAILY [facility] Last Admin: 11/15/17 10:33 Dose: 100 mg Enoxaparin Sodium (Lovenox) 40 mg SC DAILY [facility] Last Admin: 11/15/17 10:33 Dose: 40 mg Ferrous Sulfate (Feosol) 325 mg PO BID [facility] Last Admin: 11/15/17 10:33 Dose: 325 mg Furosemide (Lasix) 40 mg PO DAILY [facility] Last Admin: 11/15/17 10:33 Dose: 40 mg Glucagon (Glucagen Diagnostic Kit) 0 mg IM .STAT PRN; Protocol PRN Reason: Hypoglycemia Protocol Dextrose (Dextrose 5% In Water 1000 Ml) 1,000 mls @ 0 mls/hr IV .Q0M PRN; Protocol; Per Protocol PRN Reason: Hypoglycemia Protocol Insulin Human Regular (Novolin R) 0 unit SC ACHS [facility] PRN Reason: Protocol Last Admin: 11/15/17 12:17 Dose: 8 unit Methylprednisolone (Solu-Medrol) 40 mg IVP Q6H [facility] Pantoprazole Sodium (Protonix Ec Tab) 40 mg PO DAILY [facility] Last Admin: 11/15/17 10:33 Dose: 40 mg Rosuvastatin Calcium (Crestor) 5 mg PO HS [facility] Last Admin: 11/14/17 22:10 Dose: 5 mg Timolol Maleate (Timoptic 0.5% [facility]) 0 drop OU BID [facility] Last Admin: 11/15/17 11:00 Dose: 1 drop - Labs Labs: 11/15/17 07:32 11/15/17 07:32 PT 11.7 SECONDS (9.7-12.2) 11/14/17 20:29 INR 1.0 11/14/17 20:29 APTT 30 SECONDS (21-34) 11/14/17 20:29 - Constitutional Appears: Non-toxic, No Acute Distress - Head Exam Head Exam: ATRAUMATIC, NORMAL INSPECTION, NORMOCEPHALIC - Eye Exam Eye Exam: EOMI, Normal appearance, PERRL Pupil Exam: NORMAL ACCOMODATION, PERRL - ENT Exam ENT Exam: Mucous Membranes Moist, Normal Exam - Neck Exam Neck Exam: Full ROM, Normal Inspection. absent: Lymphadenopathy - Respiratory Exam Respiratory Exam: Rales, Wheezes, NORMAL BREATHING PATTERN. absent: Accessory Muscle Use, Rhonchi, Respiratory Distress - Cardiovascular Exam Cardiovascular Exam: REGULAR RHYTHM, +S1, +S2. absent: Murmur - GI/Abdominal Exam GI & Abdominal Exam: Soft, Normal Bowel Sounds. absent: Tenderness - Extremities Exam Extremities Exam: Full ROM, Normal Capillary Refill, Normal Inspection. absent : Joint Swelling, Pedal Edema - Back Exam Back Exam: NORMAL INSPECTION - Neurological Exam Neurological Exam: Alert, Awake, Oriented x3 - Psychiatric Exam Psychiatric exam: Normal Affect, Normal Mood - Skin Skin Exam: Dry, Intact, Normal Color, Warm Assessment and Plan - Assessment and Plan (Free Text) Plan: COPD exacerbation -Duoneb Q2 PRN and Q4 IHSAN -Solu-medrol 40mg q6 -O2 via NC prn -PT -Afebrile, no leukocytosis -CXR: negative for infiltrates -f/u blood culture Chest pain - resolved -EKG NSR @80bpm, left axis deviation, no acute ST changes, no change from previous EKG (11/01) -Troponin negative x2 -Aspirin 81mg -Crestor 5mg -Cardiac cath 05/21 mid LAD 80% stenosis, 02/2016 with 2 stents -Echo 01/22/17 EF 52% HTN -Cozaar 25mg -Norvasc 10mg DM -A1C 10/2017 7.4 -Consistent Carb diet -ISS -FS ACHS -Hypoglycemia protocol Chronic Anemia -Ferrous sulfate 325mg bid -Monitor H/H Chronic constipation -colace 100mg Anxiety -Xanax 1mg Prophylactic measures -Pepcid -Lovenox
[2017-11-16] MEDS: Albuterol-Ipratrop 3 mg / 0.5 (3 ml) UD INH SCH ×6 (00:31→19:50)
[2017-11-16] MEDS: MethylPREDNISolone 40 mg Vial IVP SCH ×4 (05:48→22:07)
[2017-11-16 07:21] LABS: BASO % 0.1 % (0.0-2.0); HEMOGLOBIN 8.6 g/dL (11.0-16.0); LYMPH # 0.6 K/uL (1.0-4.3); MEAN CELL VOLUME 83.2 fL (81.0-99.0); MEAN CORPUSCULAR HEMOGLOBIN 28.3 pg (27.0-31.0); MEAN PLATELET VOLUME 9.2 fL (7.2-11.7); MONO # 0.2 K/uL (0.0-0.8); MONO % 1.6 % (0.0-10.0); NEUT # 8.7 K/uL (1.8-7.0); NEUT % 92.3 % (50.0-75.0); NRBC % 0.1 % (0.0-2.0); PLATELET COUNT 201 K/uL (130-400); RBC 3.05 Mil/uL (3.80-5.20); RED CELL DISTRIBUTION WIDTH 16.2 % (11.5-14.5)
[2017-11-16 07:22] LABS: WHITE BLOOD COUNT 9.4 K/uL (4.8-10.8)
[2017-11-16 08:06] LABS: CALCIUM 8.7 mg/dl (8.6-10.4)
[2017-11-16] MEDS: (Novolin R) Insulin Human Regular 100 units/ml vial SC SCH ×4 (08:24→21:40)
[2017-11-16 09:24] LABS: BANDS 2 % (0-2); LYMPHOCYTE 3 % (20-40); MONOCYTE 1 % (0-10); NEUTROPHIL 94 % (50-75); PLATELET ESTIMATE NORMAL (NORMAL); TOTAL CELLS COUNTED 100
[2017-11-16 09:25] LABS: ANISOCYTOSIS SLIGHT; HYPOCHROMIC SLIGHT; POIKILOCYTOSIS SLIGHT; TARGET CELLS SLIGHT
[2017-11-16] MEDS: Pantoprazole 40 mg EC Tab PO SCH (09:57)
[2017-11-16] MEDS: Brimonidine 0.2% Opth Sol (5ml) OU SCH ×2 (09:58→19:05)
[2017-11-16] MEDS ORDERED: Enoxaparin 30 mg Syringe SC SCH (10:00)
[2017-11-16] MEDS: Sodium Chloride 0.9% 1,000 ML IV SCH (14:10)
--- NOTE | 2017-11-16 14:19 | CP.PCM.PN ---
<Griselda Dowell - Last Filed: 11/16/17 16:49> Subjective - Date & Time of Evaluation Date of Evaluation: 11/16/17 Time of Evaluation: 07:45 - Subjective Subjective: Patient seen and examined at bedside. Patient resting comfortably in bed. Patient complains of a headache this morning. She feels like her breathing has improved. She denies fever, chills, chest pain, palpitations, cough, abdominal pain, n/v/d/c, and calf pain. Objective - Vital Signs/Intake and Output Vital Signs (last 24 hours): Temp Pulse Resp BP Pulse Ox 97.9 F 83 20 121/56 L 97 11/16/17 08:16 11/16/17 12:00 11/16/17 08:16 11/16/17 11:00 11/16/17 08:16 Intake and Output: 11/16/17 11/16/17 06:59 18:59 Intake Total 120 Balance 120 - Medications Medications: Current Medications Albuterol/Ipratropium (Duoneb 3 Mg/0.5 Mg (3 Ml) Ud) 3 ml INH RQ2 PRN PRN Reason: Shortness of Breath Albuterol/Ipratropium (Duoneb 3 Mg/0.5 Mg (3 Ml) Ud) 3 ml INH RQ4 [facility] Last Admin: 11/16/17 11:14 Dose: 3 ml Alprazolam (Xanax) 1 mg PO DAILY [facility] Last Admin: 11/16/17 09:57 Dose: 1 mg Amlodipine Besylate (Norvasc) 10 mg PO DAILY [facility] Last Admin: 11/16/17 11:00 Dose: 10 mg Aspirin (Ecotrin) 81 mg PO DAILY [facility] Last Admin: 11/16/17 09:57 Dose: 81 mg Brimonidine Tartrate (Alphagan 0.2% Opht) 0 ml OU BID [facility] Last Admin: 11/16/17 09:58 Dose: 1 drop Dextrose (Dextrose 50% Inj) 0 ml IVP .STAT PRN; Protocol PRN Reason: Hypoglycemia Protocol Dextrose (Glutose 15) 0 gm PO .ONCE PRN; Protocol PRN Reason: Hypoglycemia Protocol Docusate Sodium (Colace) 100 mg PO BID [facility] Enoxaparin Sodium (Lovenox) 30 mg SC DAILY [facility] Last Admin: 11/16/17 09:59 Dose: 30 mg Ferrous Sulfate (Feosol) 325 mg PO BID [facility] Last Admin: 11/16/17 09:58 Dose: 325 mg Furosemide (Lasix) 40 mg PO DAILY [facility] Last Admin: 11/16/17 09:58 Dose: 40 mg Glucagon (Glucagen Diagnostic Kit) 0 mg IM .STAT PRN; Protocol PRN Reason: Hypoglycemia Protocol Dextrose (Dextrose 5% In Water 1000 Ml) 1,000 mls @ 0 mls/hr IV .Q0M PRN; Protocol; Per Protocol PRN Reason: Hypoglycemia Protocol Sodium Chloride (Sodium Chloride 0.9%) 1,000 mls @ 50 mls/hr IV .Q20H [facility] Insulin Human Regular (Novolin R) 0 unit SC ACHS [facility] PRN Reason: Protocol Last Admin: 11/16/17 12:47 Dose: 8 unit Methylprednisolone (Solu-Medrol) 40 mg IVP Q6H [facility] Last Admin: 11/16/17 09:58 Dose: 40 mg Pantoprazole Sodium (Protonix Ec Tab) 40 mg PO DAILY [facility] Last Admin: 11/16/17 09:57 Dose: 40 mg Rosuvastatin Calcium (Crestor) 5 mg PO HS [facility] Last Admin: 11/15/17 21:49 Dose: 5 mg Timolol Maleate (Timoptic 0.5% Ophth Soln) 0 drop OU BID [facility] Last Admin: 11/16/17 10:05 Dose: 1 drop - Labs Labs: 11/16/17 07:06 11/16/17 07:06 PT 11.7 SECONDS (9.7-12.2) 11/14/17 20:29 INR 1.0 11/14/17 20:29 APTT 30 SECONDS (21-34) 11/14/17 20:29 - Additional Findings Additional findings: - Constitutional Appears: Non-toxic, No Acute Distress - Head Exam Head Exam: ATRAUMATIC, NORMAL INSPECTION, NORMOCEPHALIC - Eye Exam Eye Exam: EOMI, Normal appearance, PERRL Pupil Exam: NORMAL ACCOMODATION, PERRL - ENT Exam ENT Exam: Mucous Membranes Moist, Normal Exam - Neck Exam Neck Exam: Full ROM, Normal Inspection. absent: Lymphadenopathy - Respiratory Exam Respiratory Exam: Clear to auscultation bilaterally. NORMAL BREATHING PATTERN. absent: Accessory Muscle Use, Wheezes, Rales, Rhonchi, Respiratory Distress - Cardiovascular Exam Cardiovascular Exam: REGULAR RHYTHM, +S1, +S2. absent: Murmur - GI/Abdominal Exam GI & Abdominal Exam: Soft, Normal Bowel Sounds. absent: Tenderness - Extremities Exam Extremities Exam: Full ROM, Normal Capillary Refill, Normal Inspection. absent : Joint Swelling, Pedal Edema - Back Exam Back Exam: NORMAL INSPECTION - Neurological Exam Neurological Exam: Alert, Awake, Oriented x3 - Psychiatric Exam Psychiatric exam: Normal Affect, Normal Mood - Skin Skin Exam: Dry, Intact, Normal Color, Warm Assessment and Plan - Assessment and Plan (Free Text) Plan: COPD exacerbation -Duoneb Q2 PRN and Q4 [facility] -Solu-medrol 40mg q6 -O2 via NC prn -PT recommends discharge to [facility] (likely Sunday 11/19) -Afebrile, no leukocytosis -CXR: negative for infiltrates -blood culture negative x24H Chest pain - resolved -EKG NSR @80bpm, left axis deviation, no acute ST changes, no change from previous EKG (11/01) -Troponin negative x2 -Aspirin 81mg -Crestor 5mg -Cardiac cath 05/21 mid LAD 80% stenosis, 02/2016 with 2 stents -Echo 01/22/17 EF 52% Acute on Chronic Kidney Disease (Stage IV) -Dr. Jj consulted (nephro) -Monitor BUN and Cr -NS @ 50 cc/h HTN -Cozaar 25mg -Norvasc 10mg DM -A1C 10/2017 7.4 -Consistent Carb diet -Lantus 10 U SC HS -ISS -FS ACHS -Hypoglycemia protocol Chronic Anemia -Ferrous sulfate 325mg bid -Monitor H/H Chronic constipation -colace 100mg BID Anxiety -Xanax 1mg Prophylactic measures -Pepcid -Heparin <Atilio Jean - Last Filed: 11/16/17 18:52> Objective - Vital Signs/Intake and Output Vital Signs (last 24 hours): Temp Pulse Resp BP Pulse Ox 97.1 F L 70 20 137/58 L 100 11/16/17 15:15 11/16/17 15:15 11/16/17 15:15 11/16/17 15:15 11/16/17 15:15 Intake and Output: 11/16/17 11/16/17 06:59 18:59 Intake Total 120 440 Balance 120 440 - Medications Medications: Current Medications Albuterol/Ipratropium (Duoneb 3 Mg/0.5 Mg (3 Ml) Ud) 3 ml INH RQ2 PRN PRN Reason: Shortness of Breath Albuterol/Ipratropium (Duoneb 3 Mg/0.5 Mg (3 Ml) Ud) 3 ml INH RQ4 [facility] Last Admin: 11/16/17 15:55 Dose: 3 ml Alprazolam (Xanax) 1 mg PO DAILY [facility] Last Admin: 11/16/17 09:57 Dose: 1 mg Amlodipine Besylate (Norvasc) 10 mg PO DAILY [facility] Last Admin: 11/16/17 11:00 Dose: 10 mg Aspirin (Ecotrin) 81 mg PO DAILY [facility] Last Admin: 11/16/17 09:57 Dose: 81 mg Brimonidine Tartrate (Alphagan 0.2% Opht) 0 ml OU BID [facility] Last Admin: 11/16/17 09:58 Dose: 1 drop Dextrose (Dextrose 50% Inj) 0 ml IVP .STAT PRN; Protocol PRN Reason: Hypoglycemia Protocol Dextrose (Glutose 15) 0 gm PO .ONCE PRN; Protocol PRN Reason: Hypoglycemia Protocol Docusate Sodium (Colace) 100 mg PO BID [facility] Ferrous Sulfate (Feosol) 325 mg PO BID [facility] Last Admin: 11/16/17 09:58 Dose: 325 mg Furosemide (Lasix) 40 mg PO DAILY [facility] Last Admin: 11/16/17 09:58 Dose: 40 mg Glucagon (Glucagen Diagnostic Kit) 0 mg IM .STAT PRN; Protocol PRN Reason: Hypoglycemia Protocol Heparin Sodium (Porcine) (Heparin) 5,000 units SC Q12 [facility] Dextrose (Dextrose 5% In Water 1000 Ml) 1,000 mls @ 0 mls/hr IV .Q0M PRN; Protocol; Per Protocol PRN Reason: Hypoglycemia Protocol Sodium Chloride (Sodium Chloride 0.9%) 1,000 mls @ 50 mls/hr IV .Q20H [facility] Last Admin: 11/16/17 14:10 Dose: 50 mls/hr Insulin Glargine (Lantus) 10 unit SC HS [facility] Insulin Human Regular (Novolin R) 0 unit SC ACHS [facility] PRN Reason: Protocol Methylprednisolone (Solu-Medrol) 40 mg IVP Q6H [facility] Last Admin: 11/16/17 17:12 Dose: 40 mg Pantoprazole Sodium (Protonix Ec Tab) 40 mg PO DAILY [facility] Last Admin: 11/16/17 09:57 Dose: 40 mg Rosuvastatin Calcium (Crestor) 5 mg PO HS [facility] Last Admin: 11/15/17 21:49 Dose: 5 mg Timolol Maleate (Timoptic 0.5% Ophth Soln) 0 drop OU BID [facility] Last Admin: 11/16/17 10:05 Dose: 1 drop - Labs Labs: 11/16/17 07:06 11/16/17 07:06 PT 11.7 SECONDS (9.7-12.2) 11/14/17 20:29 INR 1.0 11/14/17 20:29 APTT 30 SECONDS (21-34) 11/14/17 20:29 Attending/Attestation - Attestation I have personally seen and examined this patient.: Yes I have fully participated in the care of the patient.: Yes I have reviewed all pertinent clinical information, including history, physical exam and plan: Yes Notes (Text): 11/16/17 18:30 Patient was seen and examined at 1:15 PM with Nurse Hidalgo who translated Ghanaian Also on ROS: SOB and cough still present but better than when she came in Hard stool this morning Also on Exam: Respiratory: End expiratory wheezing diffusely Please note that the patient is NO longer on Cozaar as it was discontinued secondary to Acute on Chronic Renal Failure. For the HTN the patient is currently on Norvasc and Lasix F/U renal failure workup: Urine Lytes, Urine Protein, Bilateral Renal U/S and further recommendations from Nephrology NS at 50 ml/hour started today to see if this can possibly improve the Cr. Lovenox changed over to Heparin due to the elevated Cr. Long acting Lantus 10 units added started tonight: keep any eye on the blood glucose which may drop once the steroids are started to taper down. Spoke with Utility Spray Operator Meena and will plan for [facility] on Sunday as long is patient is better from COPD standpoint. Atilio Jean D.O.
--- NOTE | 2017-11-16 14:39 | CP.PCM.CON ---
History of Present Illness - History of Present Illness History of Present Illness: CC: COPD exacerbation 86 year old female with past medical history of COPD, HTN, CAD, anemia , DM, arthritis, and anxiety presents to the [facility] ED for shortness of breath and coughs. She has nonproductive coughs and wheezes which kept her up all night. Patient tried using inhaler pump and nebulizer with minimal relief. Patient also reports to have mid sternum chest pain and back pain associated with these coughs. Her symptoms did not improve with further additional nebulizer treatments which prompted the patient to come to the emergency department. Patient denies fever, chills, headache, abdominal pain, nausea, vomiting, diarrhea, or urinary changes. Spoken to patient's daughter Rasta Curiel over the phone, stating there are no major health or medication changes since the last hospital discharge. PMD: Dr. Gomez PMHx: CAD, HTN, DM, gastritis, asthma, arthritis, COPD, anxiety PSHx: hysterectomy and oopherectomy, cataract surgery, Cardiac cath 02/2016 with 2x stents Family History: Mother had asthma, heart disease, at age 92 Allergies: NKDA Social History: smoked 1ppd x 50 yrs, quit 20 yrs ago; social drinker in the past. Denies current tobacco, alcohol or other drug use Home meds: norvasc, ventolin inhaler, xanax, asa, brimonidine, colace, pepcid, ferrous sulfate, furosemide, insulin 70/30, insulin NPH, losartan, lubiprostone , meclizine, crestor Review of Systems - Constitutional Constitutional: As Per HPI, Weakness - EENT Eyes: absent: As Per HPI, Blind Spots, Blurred Vision, Change in Vision, Decreased Night Vision, Diplopia, Discharge, Dry Eye, Exophthalmos, Floaters, Irritation, Itchy Eyes, Loss of Peripheral Vision, Pain, Photophobia, Requires Corrective Lenses, Sees Flashes, Spots in Vision, Tunnel Vision, Other Visual Disturbances, Loss of Vision, Other Ears: absent: As Per HPI, Decreased Hearing, Ear Discharge, Ear Pain, Tinnitus, Abnormal Hearing, Disequilibrium, Dizziness, Other Nose/Mouth/Throat: absent: As Per HPI, Epistaxis, Nasal Congestion, Nasal Discharge, Nasal Obstruction, Nasal Trauma, Nose Pain, Post Nasal Drip, Sinus Pain, Sinus Pressure, Bleeding Gums, Change in Voice, Dental Pain, Dry Mouth, Dysphagia, Halitosis, Hoarsness, Lip Swelling, Mouth Lesions, Mouth Pain, Odynophagia, Sore Throat, Throat Swelling, Tongue Swelling, Facial Pain, Neck Pain, Neck Mass, Other - Cardiovascular Cardiovascular: Dyspnea on Exertion, Palpitations - Gastrointestinal Gastrointestinal: Bloating, Nausea - Musculoskeletal Musculoskeletal: Muscle Cramps, Muscle Weakness, Myalgias - Neurological Neurological: Weakness Past Patient History - Infectious Disease Hx of Infectious Diseases: None - Tetanus Immunizations Tetanus Immunization: Unknown - Past Medical History & Family History Past Medical History?: Yes Past Family History: Reviewed and not pertinent - Past Social History Smoking Status: Former Smoker Chewing Tobacco Use: No Cigar Use: No Alcohol: Occasional - CARDIAC Hx Cardiac Disorders: Yes (CAD, Coronary Stent) Hx Hypercholesterolemia: Yes Hx Hypertension: Yes - PULMONARY Hx Chronic Obstructive Pulmonary Disease (COPD): Yes - NEUROLOGICAL Hx Seizures: No - HEENT Hx HEENT Problems: Yes Hx Cataracts: Yes (right eye) Hx Glaucoma: Yes (left eye) Other/Comment: [place] LEFT EAR - RENAL Hx Chronic Kidney Disease: No - ENDOCRINE/METABOLIC Hx Diabetes Mellitus Type 2: Yes - HEMATOLOGICAL/ONCOLOGICAL Hx Anemia: Yes - INTEGUMENTARY Hx Dermatological Problems: No - MUSCULOSKELETAL/RHEUMATOLOGICAL Hx Arthritis: Yes (R HIP; BACK) Hx Rheumatoid Arthritis: Yes - GASTROINTESTINAL Hx Gastritis: Yes - GENITOURINARY/GYNECOLOGICAL Hx Genitourinary Disorders: Yes Other/Comment: fibroid surgery - PSYCHIATRIC Hx Anxiety: Yes Hx Substance Use: No - SURGICAL HISTORY Hx Coronary Stent: Yes (cad cath 02/2016 with stent) - ANESTHESIA Hx Anesthesia: Yes Hx Anesthesia Reactions: No Hx Malignant Hyperthermia: No Meds Allergies/Adverse Reactions: Allergies Allergy/AdvReac Type Severity Reaction Status Date / Time No Known Allergies Allergy Verified 10/31/17 23:35 - Medications Medications: Current Medications Albuterol/Ipratropium (Duoneb 3 Mg/0.5 Mg (3 Ml) Ud) 3 ml INH RQ2 PRN PRN Reason: Shortness of Breath Albuterol/Ipratropium (Duoneb 3 Mg/0.5 Mg (3 Ml) Ud) 3 ml INH RQ4 [facility] Last Admin: 11/16/17 11:14 Dose: 3 ml Alprazolam (Xanax) 1 mg PO DAILY [facility] Last Admin: 11/16/17 09:57 Dose: 1 mg Amlodipine Besylate (Norvasc) 10 mg PO DAILY [facility] Last Admin: 11/16/17 11:00 Dose: 10 mg Aspirin (Ecotrin) 81 mg PO DAILY [facility] Last Admin: 11/16/17 09:57 Dose: 81 mg Brimonidine Tartrate (Alphagan 0.2% Opht) 0 ml OU BID [facility] Last Admin: 11/16/17 09:58 Dose: 1 drop Dextrose (Dextrose 50% Inj) 0 ml IVP .STAT PRN; Protocol PRN Reason: Hypoglycemia Protocol Dextrose (Glutose 15) 0 gm PO .ONCE PRN; Protocol PRN Reason: Hypoglycemia Protocol Docusate Sodium (Colace) 100 mg PO BID [facility] Enoxaparin Sodium (Lovenox) 30 mg SC DAILY [facility] Last Admin: 11/16/17 09:59 Dose: 30 mg Ferrous Sulfate (Feosol) 325 mg PO BID [facility] Last Admin: 11/16/17 09:58 Dose: 325 mg Furosemide (Lasix) 40 mg PO DAILY [facility] Last Admin: 11/16/17 09:58 Dose: 40 mg Glucagon (Glucagen Diagnostic Kit) 0 mg IM .STAT PRN; Protocol PRN Reason: Hypoglycemia Protocol Dextrose (Dextrose 5% In Water 1000 Ml) 1,000 mls @ 0 mls/hr IV .Q0M PRN; Protocol; Per Protocol PRN Reason: Hypoglycemia Protocol Sodium Chloride (Sodium Chloride 0.9%) 1,000 mls @ 50 mls/hr IV .Q20H [facility] Insulin Human Regular (Novolin R) 0 unit SC ACHS [facility] PRN Reason: Protocol Last Admin: 11/16/17 12:47 Dose: 8 unit Methylprednisolone (Solu-Medrol) 40 mg IVP Q6H [facility] Last Admin: 11/16/17 09:58 Dose: 40 mg Pantoprazole Sodium (Protonix Ec Tab) 40 mg PO DAILY [facility] Last Admin: 11/16/17 09:57 Dose: 40 mg Rosuvastatin Calcium (Crestor) 5 mg PO HS [facility] Last Admin: 11/15/17 21:49 Dose: 5 mg Timolol Maleate (Timoptic 0.5% Ophth Soln) 0 drop OU BID [facility] Last Admin: 11/16/17 10:05 Dose: 1 drop Physical Exam - Constitutional Appears: In Acute Distress, Chronically Ill - Head Exam Head Exam: ATRAUMATIC, NORMAL INSPECTION - Eye Exam Eye Exam: EOMI, Normal appearance - Neck Exam Neck exam: Positive for: Normal Inspection. Negative for: Tenderness - Respiratory Exam Respiratory Exam: Rhonchi, NORMAL BREATHING PATTERN - Cardiovascular Exam Cardiovascular Exam: REGULAR RHYTHM, +S1 - GI/Abdominal Exam GI & Abdominal Exam: Distended, Soft - Extremities Exam Extremities exam: Positive for: normal inspection. Negative for: pedal edema, tenderness - Neurological Exam Neurological exam: Alert, Oriented x3 - Skin Skin Exam: Dry, Warm Results - Vital Signs Recent Vital Signs: Last Vital Signs Temp 97.9 F 11/16/17 08:16 Pulse 83 11/16/17 12:00 Resp 20 11/16/17 08:16 BP 121/56 L 11/16/17 11:00 Pulse Ox 97 11/16/17 08:16 - Labs Result Diagrams: 11/16/17 07:06 11/16/17 07:06 Labs: Laboratory Results - last 24 hr 11/15/17 11/15/17 11/16/17 16:58 21:01 06:35 WBC RBC Hgb Hct MCV MCH MCHC RDW Plt Count MPV Neut % (Auto) Lymph % (Auto) Snyder % (Auto) Eos % (Auto) Baso % (Auto) Neut # (Auto) Lymph # (Auto) Snyder # (Auto) Eos # (Auto) Baso # (Auto) Neutrophils % (Manual) Band Neutrophils % Lymphocytes % (Manual) Monocytes % (Manual) Platelet Estimate Hypochromasia (manual) Poikilocytosis (manual Anisocytosis (manual) Target Cells Sodium Potassium Chloride Carbon Dioxide Anion Gap BUN Creatinine Est GFR ( Amer) Est GFR (Non-Af Amer) POC Glucose (mg/dL) 267 H 225 H 400 H* Random Glucose Calcium 11/16/17 11/16/17 11/16/17 07:06 07:06 11:37 WBC 9.4 D RBC 3.05 L Hgb 8.6 L Hct 25.4 L MCV 83.2 MCH 28.3 MCHC 34.0 RDW 16.2 H Plt Count 201 MPV 9.2 Neut % (Auto) 92.3 H Lymph % (Auto) 6.0 L Snyder % (Auto) 1.6 Eos % (Auto) 0.0 Baso % (Auto) 0.1 Neut # (Auto) 8.7 H Lymph # (Auto) 0.6 L Snyder # (Auto) 0.2 Eos # (Auto) 0.0 Baso # (Auto) 0.0 Neutrophils % (Manual) 94 H Band Neutrophils % 2 Lymphocytes % (Manual) 3 L Monocytes % (Manual) 1 Platelet Estimate Normal Hypochromasia (manual) Slight Poikilocytosis (manual Slight Anisocytosis (manual) Slight Target Cells Slight Sodium 135 Potassium 3.8 Chloride 93 L Carbon Dioxide 28 Anion Gap 18 BUN 66 H Creatinine 1.8 H Est GFR ( Amer) 32 Est GFR (Non-Af Amer) 27 POC Glucose (mg/dL) 362 H Random Glucose 371 H Calcium 8.7 Assessment & Plan (1) CKD (chronic kidney disease) stage 4, GFR 15-29 ml/min Status: Acute (2) Fluid overload Status: Acute (3) CAD (coronary artery disease) Status: Acute (4) COPD exacerbation Status: Acute - Assessment and Plan (Free Text) Plan: Agree with mild fluid hydration Azotemia appears chronic and might not respond to fluids will check renal US Check for proteinuria check urine lytes serial chemistries
--- NOTE | 2017-11-16 16:12 | US ---
PROCEDURE: Ultrasound of the Kidneys HISTORY: CKD eval COMPARISON: None available. TECHNIQUE: Sonogram of the kidneys. FINDINGS: RIGHT KIDNEY: Measures: 9.6 cm. Normal in size, contour with diffuse increased echogenicity. No stone, solid mass lesion or hydronephrosis visualized. There is mild fullness in the collecting system. There is a 7 x 7 x 7 mm simple cyst in the upper pole. LEFT KIDNEY: Measures: 9.7 cm. Normal in size, contour with diffuse increased echogenicity. No stone, solid mass lesion or hydronephrosis visualized. There is a 1.8 x 1.7 x 1.9 cm simple cyst in the upper pole, 1.6 x 1.8 x 1.7 cm simple cyst in the interpolar region and 2.0 x 1.4 x 1.5 cm simple cyst in the interpolar region. OTHER FINDINGS: None. IMPRESSION: Chronic renal parenchymal disease. Simple cysts in the kidneys, the largest in the left interpolar region measures 2.0 cm.
[2017-11-16] MEDS ORDERED: (Novolin R) Insulin Human Regular 100 units/ml vial SC SCH ×2 (16:30→16:39)
[2017-11-16 19:58] LABS: SQUAMOUS EPITHIAL 1 /hpf (0-5); URINE BACTERIA RARE (<OCC); URINE BILIRUBIN NEGATIVE (NEGATIVE); URINE BLOOD NEGATIVE (NEGATIVE); URINE CLARITY Clear (Clear); URINE COLOR Straw (YELLOW); URINE GLUCOSE (UA) 3+ mg/dL (Normal); URINE LEUKOCYTE ESTERASE NEG Leu/uL (Negative); URINE PROTEIN NEGATIVE (NEGATIVE); URINE UROBILINOGEN NORMAL mg/dL (0.2-1.0)
[2017-11-16] MEDS: (Lantus) Insulin Glargine, Recombinant SC SCH (22:05)
[2017-11-17] MEDS: Albuterol-Ipratrop 3 mg / 0.5 (3 ml) UD INH SCH ×6 (01:05→19:24)
[2017-11-17] MEDS: MethylPREDNISolone 40 mg Vial IVP SCH ×4 (04:36→22:03)
[2017-11-17 08:37] LABS: BASO % 0.1 % (0.0-2.0); LYMPH # 0.4 K/uL (1.0-4.3); LYMPH % 5.7 % (20.0-40.0); MEAN CELL VOLUME 83.4 fL (81.0-99.0); MEAN CORPUSCULAR HEMOGLOBIN 28.4 pg (27.0-31.0); MEAN CORPUSCULAR HGB CONC 34.1 g/dL (33.0-37.0); MONO # 0.2 K/uL (0.0-0.8); MONO % 2.4 % (0.0-10.0); NEUT # 6.5 K/uL (1.8-7.0); NEUT % 91.8 % (50.0-75.0); PLATELET COUNT 209 K/uL (130-400); RBC 3.15 Mil/uL (3.80-5.20); WHITE BLOOD COUNT 7.1 K/uL (4.8-10.8)
[2017-11-17 08:38] LABS: ALB/GLOB RATIO 1.1 (1.0-2.1); ALBUMIN 3.8 g/dL (3.5-5.0); ALT/SGPT < 6 U/L (9-52); AST/SGOT 20 U/L (14-36); BLOOD UREA NITROGEN 67 mg/dL (7-17); CALCIUM 8.6 mg/dl (8.6-10.4); GFR AFRICAN-AMERICAN 43; GFR NON-AFRICAN AMERICAN 36
--- NOTE | 2017-11-17 08:38 | CP.PCM.PN ---
Subjective - Date & Time of Evaluation Date of Evaluation: 11/17/17 Time of Evaluation: 08:15 - Subjective Subjective: Patient was seen and examined by me as well. This is a patient who is known to me from previous admissions in the past. She remembered me and I remembered her. Per review of the notes the patient came on 11/14 with shortness of breath and there is a history of COPD. When I saw her she was not in any acute distress. She ate almost 100% of her meal. She was speaking full sentences in [place]ian. I will have to bring a glass checker back today to better converse with her. This being said I she reports she feels somewhat better today however breathing still had some expiratory wheezing. She denied chest pain, denied palpitations, and denied abdominal pain. She did say she was + constipation and wanted to try something to relieve this. Today we will try decreasing the solumedrol from 40 IV Q6 to Q8hrs. Continue the nebulizers. Accuchecks are slightly high 362, 239, 294 364, - will monitor if it's still higher than we should adjust the insulin Objective - Vital Signs/Intake and Output Vital Signs (last 24 hours): Temp Pulse Resp BP Pulse Ox 97.7 F 81 20 128/64 98 11/17/17 07:00 11/17/17 08:00 11/17/17 07:00 11/17/17 07:00 11/17/17 07:00 Intake and Output: 11/17/17 11/17/17 06:59 18:59 Intake Total 400 Balance 400 - Medications Medications: Current Medications Albuterol/Ipratropium (Duoneb 3 Mg/0.5 Mg (3 Ml) Ud) 3 ml INH RQ2 PRN PRN Reason: Shortness of Breath Albuterol/Ipratropium (Duoneb 3 Mg/0.5 Mg (3 Ml) Ud) [address] [facility] Last Admin: 11/17/17 07:22 Dose: Not Given Alprazolam (Xanax) [address] [facility] Last Admin: 11/16/17 09:57 Dose: 1 mg Amlodipine Besylate (Norvasc) [address] [facility] Last Admin: 11/16/17 11:00 Dose: 10 mg Aspirin (Ecotrin) [address] [facility] Last Admin: 11/16/17 09:57 Dose: 81 mg Brimonidine Tartrate (Alphagan 0.2% Opht) [address] [facility] Last Admin: 11/16/17 19:05 Dose: 1 drop Dextrose (Dextrose 50% Inj) 0 ml IVP .STAT PRN; Protocol PRN Reason: Hypoglycemia Protocol Dextrose (Glutose 15) 0 gm PO .ONCE PRN; Protocol PRN Reason: Hypoglycemia Protocol Docusate Sodium (Colace) [address] [facility] Last Admin: 11/16/17 19:05 Dose: 100 mg Ferrous Sulfate (Feosol) [address] [facility] Last Admin: 11/16/17 23:49 Dose: 325 mg Furosemide (Lasix) [address] [facility] Last Admin: 11/16/17 09:58 Dose: 40 mg Glucagon (Glucagen Diagnostic Kit) 0 mg IM .STAT PRN; Protocol PRN Reason: Hypoglycemia Protocol Heparin Sodium (Porcine) (Heparin) 5,[address] [facility] Last Admin: 11/16/17 22:06 Dose: 5,000 units Dextrose (Dextrose 5% In Water 1000 Ml) 1,000 mls @ 0 mls/hr IV .Q0M PRN; Protocol; Per Protocol PRN Reason: Hypoglycemia Protocol Sodium Chloride (Sodium Chloride 0.9%) 1,000 mls @ 50 mls/hr IV .Q20H [facility] Last Admin: 11/16/17 14:10 Dose: 50 mls/hr Insulin Glargine (Lantus) [address] [facility] Last Admin: 11/16/17 22:05 Dose: 10 u Insulin Human Regular (Novolin R) [address] [facility] PRN Reason: Protocol Last Admin: 11/16/17 21:40 Dose: Not Given Methylprednisolone (Solu-Medrol) [address] [facility] Last Admin: 11/17/17 04:36 Dose: 40 mg Pantoprazole Sodium (Protonix Ec Tab) [address] [facility] Last Admin: 11/16/17 09:57 Dose: 40 mg Rosuvastatin Calcium (Crestor) [address] [facility] Last Admin: 11/16/17 22:03 Dose: 5 mg Timolol Maleate (Timoptic 0.5% Ophth Soln) [address] [facility] Last Admin: 11/16/17 19:06 Dose: 1 drop - Labs Labs: 11/16/17 07:06 11/16/17 07:06 PT 11.7 SECONDS (9.7-12.2) 11/14/17 20:29 INR 1.0 11/14/17 20:29 APTT 30 SECONDS (21-34) 11/14/17 20:29 - Constitutional Appears: Well, Non-toxic, No Acute Distress - Head Exam Head Exam: NORMAL INSPECTION, NORMOCEPHALIC - Eye Exam Eye Exam: EOMI, Normal appearance - ENT Exam ENT Exam: Mucous Membranes Moist - Respiratory Exam Respiratory Exam: Decreased Breath Sounds, Rhonchi, Wheezes Additional comments: Speaking in full sentences - Neurological Exam Neurological Exam: Alert, Awake, Oriented x3 Neuro motor strength exam: Left Upper Extremity: 5, Right Upper Extremity: 5, Left Lower Extremity: 5, Right Lower Extremity: 5 - Psychiatric Exam Psychiatric exam: Normal Affect, Normal Mood - Skin Skin Exam: Normal Color, Warm Assessment and Plan - Assessment and Plan (Free Text) Assessment: COPD exacerbation 11/17/2017: She is doing better she says - however on exam still has rales and rhochi. Will try decreasing IV solumedrol to 40 Q8hrs. Continue the nebulizer treatments. Repeat the portable CXRAY, I don't think this is fluid over but given all the rales and rhochi we should still check as she is on IVF. I did not try walking her today, she reported not feeling steady. We are pending lab work this AM. -Duoneb Q2 PRN and Q4 [facility] -Solu-medrol 40mg q8 -O2 via [place] prn -PT recommends discharge to [facility] (likely Sunday 11/19) Chest pain - resolved 11/17/2017: On telemetry she has been NSR in the 70s and 80s. Today reported no chest pain. The EKG, and Cardiac enzymes have been stable. She remains on ASA, statin medications. EKG NSR @80bpm, left axis deviation, no acute ST changes, no change from previous EKG (11/01) Aspirin 81mg Crestor 5mg Cardiac cath 05/21 mid LAD 80% stenosis, 02/2016 with 2 stents Echo 01/22/17 EF 52% Acute on Chronic Kidney Disease (Stage IV) 11/17/17: Pending this morning lab work. She had a renal ultrasound also urine labs have been ordered by nephrology -Dr. Jj consulted (nephro) -Monitor BUN and Cr -NS @ 50 cc/h HTN -Cozaar 25mg -Norvasc 10mg DM 11/17/2017: Accuchecks are 362, 239, 294, 364. We are decreasing the IV solumedrol - if the accuchecks are still high we should mofoy the insulin. A1C 10/2017 7.4 Consistent Carb diet Lantus 10 U SC HS ISS FS ACHS Chronic Anemia -Ferrous sulfate 325mg bid -Monitor H/H Chronic constipation 11/17/2017: Add on lactulose 30 as well. colace 100mg BID Anxiety -Xanax 1mg Prophylactic measures -Pepcid -Heparin
[2017-11-17] MEDS: (Novolin R) Insulin Human Regular 100 units/ml vial SC SCH ×4 (09:42→22:04)
[2017-11-17] MEDS: Pantoprazole 40 mg EC Tab PO SCH (09:43)
--- NOTE | 2017-11-17 09:43 | CP.PCM.PN ---
Subjective - Date & Time of Evaluation Date of Evaluation: 11/17/17 Time of Evaluation: 09:39 - Subjective Subjective: pt seen and examined complaints of wheezing and cough no chest pain' ongoing knee pain blood sugars high- on steroids ROS- as per HPI, other than that 10 point ROS negative Objective - Vital Signs/Intake and Output Vital Signs (last 24 hours): Temp Pulse Resp BP Pulse Ox 97.7 F 81 20 128/64 98 11/17/17 07:00 11/17/17 08:00 11/17/17 07:00 11/17/17 07:00 11/17/17 07:00 Intake and Output: 11/17/17 11/17/17 06:59 18:59 Intake Total 400 Balance 400 - Medications Medications: Current Medications Albuterol/Ipratropium (Duoneb 3 Mg/0.5 Mg (3 Ml) Ud) 3 ml INH RQ2 PRN PRN Reason: Shortness of Breath Albuterol/Ipratropium (Duoneb 3 Mg/0.5 Mg (3 Ml) Ud) 3 ml INH RQ4 [facility] Last Admin: 11/17/17 07:22 Dose: Not Given Alprazolam (Xanax) 1 mg PO DAILY [facility] Last Admin: 11/16/17 09:57 Dose: 1 mg Amlodipine Besylate (Norvasc) 10 mg PO DAILY [facility] Last Admin: 11/16/17 11:00 Dose: 10 mg Aspirin (Ecotrin) 81 mg PO DAILY [facility] Last Admin: 11/16/17 09:57 Dose: 81 mg Brimonidine Tartrate (Alphagan 0.2% Opht) 0 ml OU BID [facility] Last Admin: 11/16/17 19:05 Dose: 1 drop Dextrose (Dextrose 50% Inj) 0 ml IVP .STAT PRN; Protocol PRN Reason: Hypoglycemia Protocol Dextrose (Glutose 15) 0 gm PO .ONCE PRN; Protocol PRN Reason: Hypoglycemia Protocol Docusate Sodium (Colace) 100 mg PO BID [facility] Last Admin: 11/16/17 19:05 Dose: 100 mg Ferrous Sulfate (Feosol) 325 mg PO BID [facility] Last Admin: 11/16/17 23:49 Dose: 325 mg Furosemide (Lasix) 40 mg PO DAILY [facility] Last Admin: 11/16/17 09:58 Dose: 40 mg Glucagon (Glucagen Diagnostic Kit) 0 mg IM .STAT PRN; Protocol PRN Reason: Hypoglycemia Protocol Heparin Sodium (Porcine) (Heparin) 5,000 units SC Q12 [facility] Last Admin: 11/16/17 22:06 Dose: 5,000 units Dextrose (Dextrose 5% In Water 1000 Ml) 1,000 mls @ 0 mls/hr IV .Q0M PRN; Protocol; Per Protocol PRN Reason: Hypoglycemia Protocol Sodium Chloride (Sodium Chloride 0.9%) 1,000 mls @ 50 mls/hr IV .Q20H [facility] Last Admin: 11/16/17 14:10 Dose: 50 mls/hr Insulin Glargine (Lantus) 10 unit SC HS [facility] Last Admin: 11/16/17 22:05 Dose: 10 u Insulin Human Regular (Novolin R) 0 unit SC ACHS [facility] PRN Reason: Protocol Last Admin: 11/16/17 21:40 Dose: Not Given Methylprednisolone (Solu-Medrol) 40 mg IVP Q8 [facility] Pantoprazole Sodium (Protonix Ec Tab) 40 mg PO DAILY [facility] Last Admin: 11/16/17 09:57 Dose: 40 mg Rosuvastatin Calcium (Crestor) 5 mg PO HS [facility] Last Admin: 11/16/17 22:03 Dose: 5 mg Timolol Maleate (Timoptic 0.5% Ophth Soln) 0 drop OU BID [facility] Last Admin: 11/16/17 19:06 Dose: 1 drop - Labs Labs: 11/17/17 08:11 11/17/17 08:11 PT 11.7 SECONDS (9.7-12.2) 11/14/17 20:29 INR 1.0 11/14/17 20:29 APTT 30 SECONDS (21-34) 11/14/17 20:29 - Constitutional Appears: Well, Non-toxic - Head Exam Head Exam: ATRAUMATIC, NORMOCEPHALIC - Eye Exam Eye Exam: EOMI, PERRL - ENT Exam ENT Exam: Mucous Membranes Moist - Neck Exam Neck Exam: absent: Lymphadenopathy - Respiratory Exam Respiratory Exam: Prolonged Expiratory Phase, Wheezes - Cardiovascular Exam Cardiovascular Exam: REGULAR RHYTHM, +S1, +S2 - GI/Abdominal Exam GI & Abdominal Exam: Soft. absent: Tenderness - Extremities Exam Extremities Exam: absent: Joint Swelling, Pedal Edema - Neurological Exam Neurological Exam: Alert, Awake, Oriented x3 - Psychiatric Exam Psychiatric exam: Normal Affect, Normal Mood - Skin Skin Exam: Normal Color, Warm Assessment and Plan (1) COPD exacerbation Status: Acute (2) Diabetic nephropathy Status: Acute (3) Dehydration Status: Acute (4) Hyperglycemia Status: Acute (5) Musculoskeletal pain Status: Acute (6) Acute kidney injury Status: Chronic - Assessment and Plan (Free Text) Plan: stop lasix continue low rate iv fluids adjust insulin for elevated BS labs in am bronchodilators
[2017-11-17] MEDS: Sodium Chloride 0.9% 1,000 ML IV SCH (09:45)
[2017-11-17 10:15] LABS: ANISOCYTOSIS SLIGHT; BANDS 1 % (0-2); LYMPHOCYTE 5 % (20-40); MICROCYTOSIS SLIGHT; MONOCYTE 2 % (0-10); NEUTROPHIL 92 % (50-75); OVALOCYTES SLIGHT; PLATELET ESTIMATE NORMAL (NORMAL); POIKILOCYTOSIS SLIGHT; TOTAL CELLS COUNTED 100
[2017-11-17] MEDS: Brimonidine 0.2% Opth Sol (5ml) OU SCH (18:14)
--- NOTE | 2017-11-17 18:17 | RAD ---
HISTORY: shortness of breath COMPARISON: Comparison is made to 11/14/2017 FINDINGS: LUNGS: No evidence of new infiltrate or consolidation in the lungs. PLEURA: No significant pleural effusion identified, no pneumothorax apparent. CARDIOVASCULAR: Normal. OSSEOUS STRUCTURES: No significant abnormalities. VISUALIZED UPPER ABDOMEN: Normal. OTHER FINDINGS: None. IMPRESSION: No active disease.
[2017-11-17] MEDS: (Lantus) Insulin Glargine, Recombinant SC SCH (22:03)
[2017-11-18] MEDS: Albuterol-Ipratrop 3 mg / 0.5 (3 ml) UD INH SCH ×6 (00:40→19:22)
[2017-11-18] MEDS: MethylPREDNISolone 40 mg Vial IVP SCH ×3 (05:35→22:14)
[2017-11-18] MEDS: Sodium Chloride 0.9% 1,000 ML IV SCH (05:53)
[2017-11-18 07:54] LABS: HEMOGLOBIN 8.3 g/dL (11.0-16.0); LYMPH # 0.4 K/uL (1.0-4.3); LYMPH % 6.5 % (20.0-40.0); MEAN CELL VOLUME 83.5 fL (81.0-99.0); MEAN CORPUSCULAR HEMOGLOBIN 27.8 pg (27.0-31.0); MEAN CORPUSCULAR HGB CONC 33.2 g/dL (33.0-37.0); MEAN PLATELET VOLUME 8.9 fL (7.2-11.7); MONO # 0.3 K/uL (0.0-0.8); MONO % 4.4 % (0.0-10.0); NEUT # 5.5 K/uL (1.8-7.0); NEUT % 89.1 % (50.0-75.0); NRBC % 0.1 % (0.0-2.0); PLATELET COUNT 228 K/uL (130-400); RBC 2.97 Mil/uL (3.80-5.20); RED CELL DISTRIBUTION WIDTH 15.7 % (11.5-14.5); WHITE BLOOD COUNT 6.2 K/uL (4.8-10.8)
[2017-11-18 08:02] LABS: ALB/GLOB RATIO 1.1 (1.0-2.1); ALBUMIN 3.5 g/dL (3.5-5.0); AST/SGOT 17 U/L (14-36); BLOOD UREA NITROGEN 56 mg/dL (7-17); CALCIUM 8.6 mg/dl (8.6-10.4); GFR AFRICAN-AMERICAN 52; GFR NON-AFRICAN AMERICAN 43
[2017-11-18 08:04] LABS: ALT/SGPT < 6 U/L (9-52)
--- NOTE | 2017-11-18 08:20 | CP.PCM.PN ---
Subjective - Date & Time of Evaluation Date of Evaluation: 11/18/17 Time of Evaluation: 08:15 - Subjective Subjective: Patient was seen and examined by me The patient was sitting up out of bed, she was not in any acute distress. She was able to tell me she has had + coughing, however no phlegm she was able to bring up. She denied fevers. Her breathing she says is not improved today. Because of the ongoing heavy rales and rhonci on our exam, will check a CT without contrast of the lungs. Also for influenza study as well. We will also add on mucomyst nebulizers as well as PO mucinex to see if this helps. Yesterday her lasix was discontinued. She is still on slow IVF The accuchecks remain high despite lowering solumedrol, they were 393, 262, 283 , 306 - so today will add on novolog with meals. Continue with the SSI-R, and Lantus 10 With reguards to her anemia, for now will continue to monitor. Objective - Vital Signs/Intake and Output Vital Signs (last 24 hours): Temp Pulse Resp BP Pulse Ox 97.9 F 67 20 135/61 96 11/18/17 08:07 11/18/17 08:07 11/18/17 08:07 11/18/17 08:07 11/18/17 08:07 Intake and Output: 11/18/17 11/18/17 06:59 18:59 Intake Total 500 Balance 500 - Medications Medications: Current Medications Acetylcysteine (Acetylcysteine 20%) 4 ml INH Q12H [facility] Albuterol/Ipratropium (Duoneb 3 Mg/0.5 Mg (3 Ml) Ud) 3 ml INH RQ2 PRN PRN Reason: Shortness of Breath Albuterol/Ipratropium (Duoneb 3 Mg/0.5 Mg (3 Ml) Ud) 3 ml INH RQ4 [facility] Last Admin: 11/18/17 07:15 Dose: Not Given Alprazolam (Xanax) 1 mg PO DAILY [facility] Last Admin: 11/17/17 09:43 Dose: 1 mg Amlodipine Besylate (Norvasc) 10 mg PO DAILY [facility] Last Admin: 11/17/17 09:43 Dose: 10 mg Aspirin (Ecotrin) 81 mg PO DAILY [facility] Last Admin: 11/17/17 09:44 Dose: 81 mg Brimonidine Tartrate (Alphagan 0.2% Opht) 0 ml OU BID [facility] Last Admin: 11/17/17 18:14 Dose: 2 drop Dextrose (Dextrose 50% Inj) 0 ml IVP .STAT PRN; Protocol PRN Reason: Hypoglycemia Protocol Dextrose (Glutose 15) 0 gm PO .ONCE PRN; Protocol PRN Reason: Hypoglycemia Protocol Docusate Sodium (Colace) 100 mg PO BID [facility] Last Admin: 11/17/17 18:14 Dose: 100 mg Ferrous Sulfate (Feosol) 325 mg PO BID [facility] Last Admin: 11/17/17 18:16 Dose: 325 mg Glucagon (Glucagen Diagnostic Kit) 0 mg IM .STAT PRN; Protocol PRN Reason: Hypoglycemia Protocol Guaifenesin (Mucinex La) 600 mg PO BID [facility] Heparin Sodium (Porcine) (Heparin) 5,000 units SC Q12 [facility] Last Admin: 11/17/17 22:02 Dose: 5,000 units Sodium Chloride (Sodium Chloride 0.9%) 1,000 mls @ 50 mls/hr IV .Q20H [facility] Last Admin: 11/18/17 05:53 Dose: Not Given Insulin Aspart (Novolog) 5 unit SC ACHS [facility] Insulin Glargine (Lantus) 10 unit SC HS [facility] Last Admin: 11/17/17 22:03 Dose: 10 u Insulin Human Regular (Novolin R) 0 unit SC ACHS [facility] PRN Reason: Protocol Last Admin: 11/17/17 22:04 Dose: Not Given Lactulose (Enulose) 20 gm PO DAILY [facility] Methylprednisolone (Solu-Medrol) 40 mg IVP Q8 [facility] Last Admin: 11/18/17 05:35 Dose: 40 mg Pantoprazole Sodium (Protonix Ec Tab) 40 mg PO DAILY [facility] Last Admin: 11/17/17 09:43 Dose: 40 mg Rosuvastatin Calcium (Crestor) 5 mg PO HS [facility] Last Admin: 11/17/17 22:03 Dose: 5 mg Timolol Maleate (Timoptic 0.5% Ophth Soln) 0 drop OU BID [facility] Last Admin: 11/17/17 18:14 Dose: 2 drop - Labs Labs: 11/18/17 07:41 11/18/17 07:41 PT 11.7 SECONDS (9.7-12.2) 11/14/17 20:29 INR 1.0 11/14/17 20:29 APTT 30 SECONDS (21-34) 11/14/17 20:29 - Constitutional Appears: No Acute Distress, Unkempt - Head Exam Head Exam: NORMAL INSPECTION, NORMOCEPHALIC - Eye Exam Eye Exam: EOMI, Normal appearance - ENT Exam ENT Exam: Mucous Membranes Moist - Respiratory Exam Respiratory Exam: Rales, Rhonchi Additional comments: Expiratory rales and rhonchi - Cardiovascular Exam Cardiovascular Exam: REGULAR RHYTHM - GI/Abdominal Exam GI & Abdominal Exam: Soft, Normal Bowel Sounds - Neurological Exam Neurological Exam: Alert, Awake, Oriented x3 Neuro motor strength exam: Left Upper Extremity: 5, Right Upper Extremity: 5, Left Lower Extremity: 5, Right Lower Extremity: 5 - Psychiatric Exam Psychiatric exam: Normal Affect, Normal Mood - Skin Skin Exam: Normal Color, Warm Assessment and Plan - Assessment and Plan (Free Text) Assessment: COPD exacerbation 11/18/2017: Today reports coughing overnight. She says no phelgm production. We will add on mucinex PO as well as mucomyst nebulizers. Because of the ongoing rales and rhionchi will check a CT of the chest without contrast. We should also check for the flu as well (even though she denied fevers and body aches) 11/17/2017: She is doing better she says - however on exam still has rales and rhochi. Will try decreasing IV solumedrol to 40 Q8hrs. Continue the nebulizer treatments. Repeat the portable CXRAY, I don't think this is fluid over but given all the rales and rhochi we should still check as she is on IVF. I did not try walking her today, she reported not feeling steady. We are pending lab work this AM. PT recommends discharge to home with PT services at home (likely Sunday 11/19) Chest pain - resolved 11/18/2017: Again on review of telemetry HR is NSR in the 70s. 11/17/2017: On telemetry she has been NSR in the 70s and 80s. Today reported no chest pain. The EKG, and Cardiac enzymes have been stable. She remains on ASA, statin medications. EKG NSR @80bpm, left axis deviation, no acute ST changes, no change from previous EKG (11/01) Aspirin 81mg Crestor 5mg Cardiac cath 05/21 mid LAD 80% stenosis, 02/2016 with 2 stents Echo 01/22/17 EF 52% Acute on Chronic Kidney Disease (Stage IV) 11/18/2017: Creatine has been decreasing, today is down to 1.2 11/17/17: Pending this morning lab work. She had a renal ultrasound also urine labs have been ordered by nephrology Dr. Jj consulted (nephro) NS @ 50 cc/h HTN 11/18/2017: systolics in the 120s to 140s Cozaar 25mg Norvasc 10mg DM 11/17/2017: Accuchecks are 362, 239, 294, 364. We are decreasing the IV solumedrol - if the accuchecks are still high we should mofoy the insulin. A1C 10/2017 7.4 Consistent Carb diet Lantus 10 U SC HS ISS FS ACHS Chronic Anemia 11/18/2017: She keep complaining of constipation - will hold Iron today and tommorow. If the Hgb goes lower then will consider transfusion. Ferrous sulfate 325mg bid Monitor H/H Chronic constipation 11/18/2017: She says still feeling constipated, will try holding the Ferrous Sulfate 11/17/2017: Add on lactulose 30 as well. Colace 100mg BID Anxiety Xanax 1mg Prophylactic measures Pepcid Heparin
[2017-11-18] MEDS ORDERED: Potassium Chloride 20 mEq ER Tab PO ONE (08:30)
[2017-11-18] MEDS: (Novolin R) Insulin Human Regular 100 units/ml vial SC SCH ×4 (08:32→21:26)
[2017-11-18 08:52] LABS: ANISOCYTOSIS SLIGHT; LYMPHOCYTE 6 % (20-40); MONOCYTE 2 % (0-10); NEUTROPHIL 92 % (50-75); PLATELET ESTIMATE NORMAL (NORMAL); TOTAL CELLS COUNTED 100
[2017-11-18 08:53] LABS: OVALOCYTES SLIGHT
[2017-11-18 08:54] LABS: POLYCHROMIC SLIGHT
[2017-11-18] MEDS: Pantoprazole 40 mg EC Tab PO SCH (09:24)
[2017-11-18] MEDS: Brimonidine 0.2% Opth Sol (5ml) OU SCH ×2 (10:00→17:58)
--- NOTE | 2017-11-18 10:16 | CT ---
PROCEDURE: CT Chest without contrast HISTORY: shortness of breath, coughing COMPARISON: Comparison is made to the previous study dated 03/19/2017 TECHNIQUE: Contiguous axial images were obtained through the chest without intravenous contrast enhancement. Sagittal and coronal reconstructions were performed. Radiation dose (DLP): 154.57 mGy-cm. This CT exam was performed using one or more of the following dose reduction techniques: Automated exposure control, adjustment of the mA and/or kV according to patient size, and/or use of iterative reconstruction technique. FINDINGS: LUNGS: Interval appearance of pleural base opacity at the right lung apex medially measures 3.2 x 1 centimeter since the previous exam. Findings may represent scar tissue. The possibility of neoplasm is less likely but not totally excluded. Again seen is linear opacity contains foci of calcification at the right lung apex suggestive of scar tissue. Otherwise no significant interval change in the lungs noted since the previous exam. Mild emphysematous changes. MEDIASTINUM: The thoracic aorta is mildly ectatic and tortuous. The heart is mildly enlarged P main pulmonary artery is mildly enlarged suggestive of pulmonary hypertension . No lymphadenopathy. PLEURA: No pleural fluid. No pneumothorax. BONES: No fracture. No destructive lesion. UPPER ABDOMEN: No significant interval change in the upper abdomen noted compared to the previous exam. OTHER FINDINGS: None. IMPRESSION: Interval appearance of new pleural base opacity at the medial aspect of the right lung apex since the previous exam may represent scar tissue. The possibility of neoplasm is less likely but not totally excluded. 3 months follow-up reassessment is suggested. Otherwise no significant interval change noted since the previous study.
[2017-11-18] MEDS: Acetylcysteine 20% Inhal Soln (4ml) INH SCH (11:10)
[2017-11-18] MEDS: (Novolog) Insulin Aspart, Recombinant 100 u/ml 10 ml vial SC SCH ×3 (12:41→22:14)
[2017-11-18] MEDS: guaiFENesin 600 mg ER Tab PO SCH ×2 (12:43→17:57)
--- NOTE | 2017-11-18 21:09 | CARD ---
APPROVED REPORT EKG Measurement Heart [id number] CO [id number] <Conclusion> Normal sinus rhythm Left bundle branch block prolonged QTc Abnormal ECG
[2017-11-18] MEDS: (Lantus) Insulin Glargine, Recombinant SC SCH (22:14)
[2017-11-19] MEDS: Albuterol-Ipratrop 3 mg / 0.5 (3 ml) UD INH SCH ×4 (00:57→11:03)
[2017-11-19] MEDS: Sodium Chloride 0.9% 1,000 ML IV SCH (03:00)
[2017-11-19] MEDS: MethylPREDNISolone 40 mg Vial IVP SCH ×2 (05:48→13:14)
[2017-11-19] MEDS: Acetylcysteine 20% Inhal Soln (4ml) INH SCH (07:16)
[2017-11-19 07:46] LABS: ALB/GLOB RATIO 1.1 (1.0-2.1); ALBUMIN 3.5 g/dL (3.5-5.0); CALCIUM 8.5 mg/dl (8.6-10.4)
[2017-11-19] MEDS: (Novolin R) Insulin Human Regular 100 units/ml vial SC SCH ×2 (08:40→12:12)
[2017-11-19] MEDS: (Novolog) Insulin Aspart, Recombinant 100 u/ml 10 ml vial SC SCH ×2 (08:40→12:11)
[2017-11-19] MEDS: Pantoprazole 40 mg EC Tab PO SCH (10:20)
[2017-11-19] MEDS: guaiFENesin 600 mg ER Tab PO SCH (10:20)
[2017-11-19] MEDS: Brimonidine 0.2% Opth Sol (5ml) OU SCH (10:30)
--- NOTE | 2017-11-19 13:08 | CP.PCM.PN ---
Subjective - Date & Time of Evaluation Date of Evaluation: 11/19/17 Time of Evaluation: 13:06 - Subjective Subjective: Feels better still with dry cough still pre-renal but creat decreased still with rhonchi- has emphysema Objective - Vital Signs/Intake and Output Vital Signs (last 24 hours): Temp Pulse Resp BP Pulse Ox 98.2 F 64 20 146/67 95 11/19/17 07:03 11/19/17 07:30 11/19/17 07:03 11/19/17 07:03 11/19/17 07:03 Intake and Output: 11/19/17 11/19/17 06:59 18:59 Intake Total 500 Balance 500 - Medications Medications: Current Medications Acetylcysteine (Acetylcysteine 20%) 4 ml INH RQ12 [facility] Last Admin: 11/19/17 07:16 Dose: Not Given Albuterol/Ipratropium (Duoneb 3 Mg/0.5 Mg (3 Ml) Ud) 3 ml INH RQ2 PRN PRN Reason: Shortness of Breath Albuterol/Ipratropium (Duoneb 3 Mg/0.5 Mg (3 Ml) Ud) 3 ml INH RQ4 [facility] Last Admin: 11/19/17 11:03 Dose: 3 ml Alprazolam (Xanax) 1 mg PO DAILY [facility] Last Admin: 11/19/17 10:25 Dose: 1 mg Amlodipine Besylate (Norvasc) 10 mg PO DAILY [facility] Last Admin: 11/19/17 10:19 Dose: 10 mg Aspirin (Ecotrin) 81 mg PO DAILY [facility] Last Admin: 11/19/17 10:19 Dose: 81 mg Brimonidine Tartrate (Alphagan 0.2% Opht) 0 ml OU BID [facility] Last Admin: 11/19/17 10:30 Dose: 1 drop Dextrose (Dextrose 50% Inj) 0 ml IVP .STAT PRN; Protocol PRN Reason: Hypoglycemia Protocol Dextrose (Glutose 15) 0 gm PO .ONCE PRN; Protocol PRN Reason: Hypoglycemia Protocol Docusate Sodium (Colace) 100 mg PO BID [facility] Last Admin: 11/19/17 10:19 Dose: 100 mg Glucagon (Glucagen Diagnostic Kit) 0 mg IM .STAT PRN; Protocol PRN Reason: Hypoglycemia Protocol Guaifenesin (Mucinex La) 600 mg PO BID [facility] Last Admin: 11/19/17 10:20 Dose: 600 mg Heparin Sodium (Porcine) (Heparin) 5,000 units SC Q12 [facility] Last Admin: 11/19/17 10:23 Dose: 5,000 units Sodium Chloride (Sodium Chloride 0.9%) 1,000 mls @ 50 mls/hr IV .Q20H [facility] Last Admin: 11/19/17 03:00 Dose: 50 mls/hr Insulin Aspart (Novolog) 5 unit SC ACHS [facility] Last Admin: 11/19/17 12:11 Dose: 5 unit Insulin Glargine (Lantus) 10 unit SC HS [facility] Last Admin: 11/18/17 22:14 Dose: 10 u Insulin Human Regular (Novolin R) 0 unit SC [facility] PRN Reason: Protocol Last Admin: 11/19/17 12:12 Dose: 4 unit Lactulose (Enulose) 20 gm PO DAILY [facility] Last Admin: 11/19/17 10:28 Dose: 20 gm Methylprednisolone (Solu-Medrol) 40 mg IVP Q8 [facility] Last Admin: 11/19/17 05:48 Dose: 40 mg Pantoprazole Sodium (Protonix Ec Tab) 40 mg PO DAILY [facility] Last Admin: 11/19/17 10:20 Dose: 40 mg Rosuvastatin Calcium (Crestor) 5 mg PO HS [facility] Last Admin: 11/18/17 22:13 Dose: 5 mg Timolol Maleate (Timoptic 0.5% Ophth Soln) 0 drop OU BID [facility] Last Admin: 11/19/17 10:23 Dose: 1 drop - Labs Labs: 11/18/17 07:41 11/19/17 07:10 PT 11.7 SECONDS (9.7-12.2) 11/14/17 20:29 INR 1.0 11/14/17 20:29 APTT 30 SECONDS (21-34) 11/14/17 20:29 - Constitutional Appears: No Acute Distress, Chronically Ill - Head Exam Head Exam: ATRAUMATIC, NORMAL INSPECTION - Eye Exam Eye Exam: EOMI, Normal appearance - Neck Exam Neck Exam: Normal Inspection. absent: Tenderness - Respiratory Exam Respiratory Exam: Rhonchi, Wheezes - Cardiovascular Exam Cardiovascular Exam: REGULAR RHYTHM, +S1 - GI/Abdominal Exam GI & Abdominal Exam: Soft. absent: Tenderness - Extremities Exam Extremities Exam: Normal Inspection. absent: Tenderness - Neurological Exam Neurological Exam: Awake, CN II-XII Intact - Skin Skin Exam: Dry, Warm Assessment and Plan (1) CKD (chronic kidney disease) stage 4, GFR 15-29 ml/min Status: Acute (2) Fluid overload Status: Acute (3) CAD (coronary artery disease) Status: Acute (4) COPD exacerbation Status: Acute - Assessment and Plan (Free Text) Plan: can stop IV fluids upon discharge agree with stopping lasix pulmonary rx for emphysema
[2017-11-19 13:34] LABS: BASO % 0.1 % (0.0-2.0); HEMOGLOBIN 8.6 g/dL (11.0-16.0); LYMPH # 0.5 K/uL (1.0-4.3); LYMPH % 6.8 % (20.0-40.0); MEAN CELL VOLUME 84.8 fL (81.0-99.0); MEAN CORPUSCULAR HEMOGLOBIN 27.7 pg (27.0-31.0); MEAN CORPUSCULAR HGB CONC 32.7 g/dL (33.0-37.0); MEAN PLATELET VOLUME 9.2 fL (7.2-11.7); MONO # 0.4 K/uL (0.0-0.8); MONO % 6.5 % (0.0-10.0); NEUT # 5.9 K/uL (1.8-7.0); NEUT % 86.6 % (50.0-75.0); PLATELET COUNT 227 K/uL (130-400); RBC 3.08 Mil/uL (3.80-5.20); RED CELL DISTRIBUTION WIDTH 16.4 % (11.5-14.5); WHITE BLOOD COUNT 6.8 K/uL (4.8-10.8)
[2017-11-19 14:01] LABS: LYMPHOCYTE 8 % (20-40); MONOCYTE 2 % (0-10); NEUTROPHIL 90 % (50-75); PLATELET ESTIMATE NORMAL (NORMAL); TOTAL CELLS COUNTED 100
[2017-11-19 14:02] LABS: ANISOCYTOSIS SLIGHT; HYPOCHROMIC SLIGHT; OVALOCYTES SLIGHT
--- NOTE | 2017-11-19 14:05 | CP.PCM.DIS ---
<Griselda Dowell - Last Filed: 11/19/17 14:36> Provider - Provider Date of Admission: 11/16/17 16:46 Attending physician: Atilio Jean MD Consults: Dr. Jj Time Spent in preparation of Discharge (in minutes): 35 Diagnosis - Discharge Diagnosis (1) COPD exacerbation Status: Acute Hospital Course - Lab Results Lab Results: Micro Results 11/14/17 19:04 Blood Blood Culture - Preliminary NO GROWTH AFTER 4 DAYS 11/14/17 19:04 Blood Blood Culture - Preliminary NO GROWTH AFTER 4 DAYS Most Recent Lab Values WBC 6.8 K/uL (4.8-10.8) 11/19/17 13:26 RBC 3.08 Mil/uL (3.80-5.20) L 11/19/17 13:26 Hgb 8.6 g/dL (11.0-16.0) L 11/19/17 13:26 Hct 26.1 % (34.0-47.0) L 11/19/17 13:26 MCV 84.8 fL (81.0-99.0) 11/19/17 13:26 MCH 27.7 pg (27.0-31.0) 11/19/17 13:26 MCHC 32.7 g/dL (33.0-37.0) L 11/19/17 13:26 RDW 16.4 % (11.5-14.5) H 11/19/17 13:26 Plt Count 227 K/uL (130-400) 11/19/17 13:26 MPV 9.2 fL (7.2-11.7) 11/19/17 13:26 Neut % (Auto) 86.6 % (50.0-75.0) H 11/19/17 13:26 Lymph % (Auto) 6.8 % (20.0-40.0) L 11/19/17 13:26 Frio % (Auto) 6.5 % (0.0-10.0) 11/19/17 13:26 Eos % (Auto) 0.0 % (0.0-4.0) 11/19/17 13:26 Baso % (Auto) 0.1 % (0.0-2.0) 11/19/17 13:26 Neut # (Auto) 5.9 K/uL (1.8-7.0) 11/19/17 13:26 Lymph # (Auto) 0.5 K/uL (1.0-4.3) L 11/19/17 13:26 Frio # (Auto) 0.4 K/uL (0.0-0.8) 11/19/17 13:26 Eos # (Auto) 0.0 K/uL (0.0-0.7) 11/19/17 13:26 Baso # (Auto) 0.0 K/uL (0.0-0.2) 11/19/17 13:26 Neutrophils % (Manual) 92 % (50-75) H 11/18/17 07:41 Band Neutrophils % 1 % (0-2) 11/17/17 08:11 Lymphocytes % (Manual) 6 % (20-40) L 11/18/17 07:41 Monocytes % (Manual) 2 % (0-10) 11/18/17 07:41 Platelet Estimate Normal (NORMAL) 11/18/17 07:41 Polychromasia Slight 11/18/17 07:41 Hypochromasia (manual) Slight 11/16/17 07:06 Poikilocytosis (manual Slight 11/17/17 08:11 Anisocytosis (manual) Slight 11/18/17 07:41 Microcytosis (manual) Slight 11/17/17 08:11 Macrocytosis (manual) Slight 11/17/17 08:11 Target Cells Slight 11/16/17 07:06 Ovalocytes Slight 11/18/17 07:41 PT 11.7 SECONDS (9.7-12.2) 11/14/17 20:29 INR 1.0 11/14/17 20:29 APTT 30 SECONDS (21-34) 11/14/17 20:29 D-Dimer, Quantitative 330 ng/mlDDU (0-243) H 11/14/17 20:29 Sodium 143 mmol/L (132-148) 11/19/17 07:10 Potassium 4.2 mmol/L (3.6-5.2) 11/19/17 07:10 Chloride 103 mmol/L (98-107) 11/19/17 07:10 Carbon Dioxide 29 mmol/L (22-30) 11/19/17 07:10 Anion Gap 15 (10-20) 11/19/17 07:10 BUN 41 mg/dL (7-17) H 11/19/17 07:10 Creatinine 1.1 mg/dL (0.7-1.2) 11/19/17 07:10 Est GFR ( Amer) 57 11/19/17 07:10 Est GFR (Non-Af Amer) 47 11/19/17 07:10 POC Glucose (mg/dL) 271 mg/dL (65-110) H 11/19/17 11:25 Random Glucose 199 mg/dL (65-105) H 11/19/17 07:10 Calcium 8.5 mg/dl (8.6-10.4) L 11/19/17 07:10 Phosphorus 4.4 mg/dL (2.5-4.5) 11/16/17 17:14 Magnesium 2.4 mg/dL (1.6-2.3) H 11/16/17 17:14 Total Bilirubin 0.3 mg/dL (0.2-1.3) 11/19/17 07:10 AST 19 U/L (14-36) 11/19/17 07:10 ALT 10 U/L (9-52) 11/19/17 07:10 Alkaline Phosphatase 52 U/L (38-126) 11/19/17 07:10 Total Creatine Kinase 36 U/L (30-135) 11/15/17 07:32 CK-MB (Mass) 0.27 ng/mL (0.0-3.38) 11/15/17 07:32 Troponin I < 0.0120 ng/mL (0.00-0.120) 11/15/17 07:32 NT-Pro-B Natriuret Pep 642 pg/mL (0-900) 11/14/17 19:22 Total Protein 6.6 g/dL (6.3-8.3) 11/19/17 07:10 Albumin 3.5 g/dL (3.5-5.0) 11/19/17 07:10 Globulin 3.2 gm/dL (2.2-3.9) 11/19/17 07:10 Albumin/Globulin Ratio 1.1 (1.0-2.1) 11/19/17 07:10 Urine Color Straw (YELLOW) 11/16/17 19:50 Urine Clarity Clear (Clear) 11/16/17 19:50 Urine pH 5.0 (5.0-8.0) 11/16/17 19:50 Ur Specific [place] 1.007 (1.003-1.030) 11/16/17 19:50 Urine Protein Negative mg/dL (NEGATIVE) 11/16/17 19:50 Urine Glucose (UA) 3+ mg/dL (Normal) H 11/16/17 19:50 Urine Ketones Negative mg/dL (NEGATIVE) 11/16/17 19:50 Urine Blood Negative (NEGATIVE) 11/16/17 19:50 Urine Nitrate Negative (NEGATIVE) 11/16/17 19:50 Urine Bilirubin Negative (NEGATIVE) 11/16/17 19:50 Urine Urobilinogen Normal mg/dL (0.2-1.0) 11/16/17 19:50 Ur Leukocyte Esterase Neg Branden/uL (Negative) 11/16/17 19:50 Urine WBC (Auto) 1 /hpf (0-5) 11/16/17 19:50 Urine RBC (Auto) < 1 /hpf (0-3) 11/16/17 19:50 Ur Squamous Epith Cells 1 /hpf (0-5) 11/16/17 19:50 Urine Bacteria Rare (<OCC) 11/16/17 19:50 U Random Total Protein 14.0 mg/dL (0.0-12.0) H 11/16/17 19:55 Ur Random Sodium 39 mmol/L 11/16/17 19:50 Influenza Typ A,B (EIA) Negative for flu a/b (NEGATIVE) 11/18/17 13:39 - Hospital Course Hospital Course: Upon admission: 86 year old female with past medical history of COPD, HTN, CAD, anemia , DM, arthritis, and anxiety presents to the [facility] ED for shortness of breath and coughs. Patient reports her symptoms started last night. She has nonproductive coughs and wheezes which kept her up all night. Patient tried using inhaler pump and nebulizer with minimal relief. Patient also reports to have mid sternum chest pain and back pain associated with these coughs. Her symptoms did not improve with further additional nebulizer treatments this afternoon which prompted the patient to come to the emergency department. Patient denies fever, chills, headache, abdominal pain, nausea, vomiting, diarrhea, or urinary changes. Spoken to patient's daughter Rasta Curiel over the phone, stating there are no major health or medication changes since the last hospital discharge. Hospital Course: Patient was admitted to hospital on telemetry 11/14/17 for COPD exacerbation and chest pain to rule out [place]. Troponins were negative. CXR 11/14 negative for infiltrates and repeat CXR 11/17 showed no active disease. EKG 11/14 showed NSR at 80bpm, LLBB, and prolonged QT; no change from previous study. She was given Duonebs, Solumedrol and O2 via NC as needed for her COPD. Blood cultures negative. Chest CT 11/18 showed no significant changes since previous study other than appearance of new pleural base opacity at medical aspect of R lung apex; may represent scar tissue with possibility of neoplasm less likely. Patient's creatinine was elevated during stay for she was seen by Dr. Jj ( Nephro) 11/16 who endorsed mild fluid hydration and ordered renal U/S. Renal U/S 11/16 showed chronic parenchymal disease and simple cysts. Lasix stopped to avoid stress on the kidneys. Patient was seen by PT who recommended D/C to [facility]. Patient refused, saying she wanted to go home. Upon discharge: Patient was cleared by Dr. Jean to be discharged home with home PT and given the following instructions: Please take the following medications as prescribed to you: Xanax 1 mg by mouth once daily at lunch time Norvasc 10 mg by mouth once daily at breakfast Aspirin 81 mg by mouth once daily at breakfast Combigan (0.5%/0.2%) 1 drop in each eye twice daily at breakfast and dinner Colace 100 mg by mouth twice daily at breakfast and dinner Lantus 10 units subcutaneous at bedtime Insulin aspart 5 units subcutaneously at breakfast, lunch and dinner Crestor 5 mg by mouth once daily at bedtime Amitiza 24 mcg by mouth twice daily Losartan 25 mg by mouth once daily Nexium 40 mg by mouth once daily Advair 50/250 mcg inhaled twice daily Albuterol 90 mcg 2 puffs inhaled every 6 hours as needed for shortness of breath Ferrous sulfate 325 mg by mouth twice daily at breakfast and dinner Calcium citrate 1,200 mg with Vitamin D 800 units everyday in divided doses ( not all at once) - over the counter Prednisone 10 mg (5 tabs on 11/20, 4 tabs on 4/18, 3 tabs on 11/22, 2 tabs on , and 1 tab on 11/24) Please discontinue the following medications: Antivert Furosemide Tylenol #3 Please follow up with your primary care provider, Dr. Gomez, before the end of this week. He will need to order a repeat chest CT in 3 months. 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 Pleast note that this is a summary of events. For more details, please see complete medical record. Discharge Exam - Head Exam Head Exam: ATRAUMATIC, NORMAL INSPECTION - Eye Exam Eye Exam: EOMI, Normal appearance, PERRL - ENT Exam ENT Exam: Mucous Membranes Moist - Respiratory Exam Respiratory Exam: Clear to PA & Lateral, NORMAL BREATHING PATTERN, UNREMARKABLE - Cardiovascular Exam Cardiovascular Exam: RRR, +S1, +S2 - GI/Abdominal Exam GI & Abdominal Exam: Normal Bowel Sounds, Unremarkable - Extremities Exam Extremities exam: normal inspection - Neurological Exam Neurological exam: Alert, Oriented x3 - Psychiatric Exam Psychiatric exam: Normal Affect, Normal Mood - Skin Skin Exam: Dry, Intact, Normal Color, Warm Discharge Plan - Discharge Medications Prescriptions: Albuterol HFA [Ventolin HFA 90 mcg/actuation (8 g)] 200 puff IH QID PRN #1 inhaler PRN Reason: Shortness Of Breath ALPRAZolam [Xanax] 1 mg PO DAILY #30 tab amLODIPine [Norvasc] 10 mg PO DAILY #30 tab Aspirin [Ecotrin] 81 mg PO DAILY #30 tabec Brimonidine Tartrate/Timolol [Combigan 0.2%-0.5% Eye Drops] 10 ml BOTHEYES BID # 1 bottle Docusate [Colace] 100 mg PO BID #60 cap Esomeprazole Magnesium [Nexium] 40 mg PO DAILY #30 capsule. Ferrous Sulfate 325 mg PO BID 30 Days #60 tablet Fluticasone/Salmeterol [Advair 250-50 Diskus] 1 each IH BID #1 inhaler Insulin Aspart, Recombinant [Novolog] 5 unit SC ACHS #1 bottle Insulin Glargine, Recombina [Lantus] 10 unit SC HS #1 bottle Losartan Potassium 25 mg PO DAILY #30 tablet Lubiprostone [Amitiza] 24 mcg PO BID #60 capsule Rosuvastatin Calcium [Crestor] 5 mg PO HS #30 tab - Follow Up Plan Condition: GOOD Disposition: HOME/ ROUTINE Instructions: Heart Healthy Diet, Diabetic Nephropathy , Carbohydrate Counting Diet, Diabetes Diet , Chest Pain (DC), Exacerbation of COPD (DC) Additional Instructions: Please take the following medications as prescribed to you: Xanax 1 mg by mouth once daily at lunch time Norvasc 10 mg by mouth once daily at breakfast Aspirin 81 mg by mouth once daily at breakfast Combigan (0.5%/0.2%) 1 drop in each eye twice daily at breakfast and dinner Colace 100 mg by mouth twice daily at breakfast and dinner Lantus 10 units subcutaneous at bedtime Insulin aspart 5 units subcutaneously at breakfast, lunch and dinner Crestor 5 mg by mouth once daily at bedtime Amitiza 24 mcg by mouth twice daily Losartan 25 mg by mouth once daily Nexium 40 mg by mouth once daily Advair 50/250 mcg inhaled twice daily Albuterol 90 mcg 2 puffs inhaled every 6 hours as needed for shortness of breath Ferrous sulfate 325 mg by mouth twice daily at breakfast and dinner Calcium citrate 1,200 mg with Vitamin D 800 units everyday in divided doses ( not all at once) - over the counter Prednisone 10 mg (5 tabs on 11/20, 4 tabs on 11/21, 3 tabs on 11/22, 2 tabs on , and 1 tab on 11/24) Please discontinue the following medications: Antivert Furosemide Tylenol #3 Please follow up with your primary care provider, Dr. Gomez, before the end of this week. He will need to order a repeat chest CT in 3 months. 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 Referrals: Chuck Gomez MD [Staff Provider] - <Atilio Jean - Last Filed: 11/19/17 18:45> Provider - Provider Date of Admission: 11/16/17 16:46 Attending physician: Atilio Jean MD Time Spent in preparation of Discharge (in minutes): 40 Hospital Course - Lab Results Lab Results: Micro Results 11/14/17 19:04 Blood Blood Culture - Preliminary NO GROWTH AFTER 4 DAYS 11/14/17 19:04 Blood Blood Culture - Preliminary NO GROWTH AFTER 4 DAYS Most Recent Lab Values WBC 6.8 K/uL (4.8-10.8) 11/19/17 13:26 RBC 3.08 Mil/uL (3.80-5.20) L 11/19/17 13: Hgb 8.6 g/dL (11.0-16.0) L 11/19/17 13: Hct 26.1 % (34.0-47.0) L 11/19/17 13: MCV 84.8 fL (81.0-99.0) 11/19/17 13: MCH 27.7 pg (27.0-31.0) 11/19/17 13: MCHC 32.7 g/dL (33.0-37.0) L 11/19/17 13: RDW 16.4 % (11.5-14.5) H 11/19/17 13: Plt Count 227 K/uL (130-400) 11/19/17 13: MPV 9.2 fL (7.2-11.7) 11/19/17 13: Neut % (Auto) 86.6 % (50.0-75.0) H 11/19/17 13: Lymph % (Auto) 6.8 % (20.0-40.0) L 11/19/17 13: Frio % (Auto) 6.5 % (0.0-10.0) 11/19/17 13: Eos % (Auto) 0.0 % (0.0-4.0) 11/19/17 13: Baso % (Auto) 0.1 % (0.0-2.0) 11/19/17: Neut # (Auto) 5.9 K/uL (1.8-7.0) 11/19/17 13: Lymph # (Auto) 0.5 K/uL (1.0-4.3) L 11/19/17 13:26 Frio # (Auto) 0.4 K/uL (0.0-0.8) 11/19/17 13: Eos # (Auto) 0.0 K/uL (0.0-0.7) 11/19/17 13: Baso # (Auto) 0.0 K/uL (0.0-0.2) 11/19/17 13:26 Neutrophils % (Manual) 90 % (50-75) H 11/19/17 13:26 Band Neutrophils % 1 % (0-2) 11/17/17 08:11 Lymphocytes % (Manual) 8 % (20-40) L 11/19/17 13:26 Monocytes % (Manual) 2 % (0-10) 11/19/17 13:26 Platelet Estimate Normal (NORMAL) 11/19/17 13:26 Polychromasia Slight 11/18/17 07:41 Hypochromasia (manual) Slight 11/19/17 13:26 Poikilocytosis (manual Slight 11/17/17 08:11 Anisocytosis (manual) Slight 11/19/17 13:26 Microcytosis (manual) Slight 11/17/17 08:11 Macrocytosis (manual) Slight 11/17/17 08:11 Target Cells Slight 11/16/17 07:06 Ovalocytes Slight 11/19/17 13:26 PT 11.7 SECONDS (9.7-12.2) 11/14/17 20:29 INR 1.0 11/14/17 20:29 APTT 30 SECONDS (21-34) 11/14/17 20:29 D-Dimer, Quantitative 330 ng/mlDDU (0-243) H 11/14/17 20:29 Sodium 143 mmol/L (132-148) 11/19/17 07:10 Potassium 4.2 mmol/L (3.6-5.2) 11/19/17 07:10 Chloride 103 mmol/L (98-107) 11/19/17 07:10 Carbon Dioxide 29 mmol/L (22-30) 11/19/17 07:10 Anion Gap 15 (10-20) 11/19/17 07:10 BUN 41 mg/dL (7-17) H 11/19/17 07:10 Creatinine 1.1 mg/dL (0.7-1.2) 11/19/17 07:10 Est GFR ( Amer) 57 11/19/17 07:10 Est GFR (Non-Af Amer) 47 11/19/17 07:10 POC Glucose (mg/dL) 271 mg/dL (65-110) H 11/19/17 11:25 Random Glucose 199 mg/dL (65-105) H 11/19/17 07:10 Calcium 8.5 mg/dl (8.6-10.4) L 11/19/17 07:10 Phosphorus 4.4 mg/dL (2.5-4.5) 11/16/17 17:14 Magnesium 2.4 mg/dL (1.6-2.3) H 11/16/17 17:14 Total Bilirubin 0.3 mg/dL (0.2-1.3) 11/19/17 07:10 AST 19 U/L (14-36) 11/19/17 07:10 ALT 10 U/L (9-52) 11/19/17 07:10 Alkaline Phosphatase 52 U/L (38-126) 11/19/17 07:10 Total Creatine Kinase 36 U/L (30-135) 11/15/17 07:32 CK-MB (Mass) 0.27 ng/mL (0.0-3.38) 11/15/17 07:32 Troponin I < 0.0120 ng/mL (0.00-0.120) 11/15/17 07:32 NT-Pro-B Natriuret Pep 642 pg/mL (0-900) 11/14/17 19:22 Total Protein 6.6 g/dL (6.3-8.3) 11/19/17 07:10 Albumin 3.5 g/dL (3.5-5.0) 11/19/17 07:10 Globulin 3.2 gm/dL (2.2-3.9) 11/19/17 07:10 Albumin/Globulin Ratio 1.1 (1.0-2.1) 11/19/17 07:10 PTH Intact Whole Molec 156 pg/mL (14-64) H 11/16/17 17:14 Urine Color Straw (YELLOW) 11/16/17 19:50 Urine Clarity Clear (Clear) 11/16/17 19:50 Urine pH 5.0 (5.0-8.0) 11/16/17 19:50 Ur Specific [place] 1.007 (1.003-1.030) 11/16/17 19:50 Urine Protein Negative mg/dL (NEGATIVE) 11/16/17 19:50 Urine Glucose (UA) 3+ mg/dL (Normal) H 11/16/17 19:50 Urine Ketones Negative mg/dL (NEGATIVE) 11/16/17 19:50 Urine Blood Negative (NEGATIVE) 11/16/17 19:50 Urine Nitrate Negative (NEGATIVE) 11/16/17 19:50 Urine Bilirubin Negative (NEGATIVE) 11/16/17 19:50 Urine Urobilinogen Normal mg/dL (0.2-1.0) 11/16/17 19:50 Ur Leukocyte Esterase Neg Branden/uL (Negative) 11/16/17 19:50 Urine WBC (Auto) 1 /hpf (0-5) 11/16/17 19:50 Urine RBC (Auto) < 1 /hpf (0-3) 11/16/17 19:50 Ur Squamous Epith Cells 1 /hpf (0-5) 11/16/17 19:50 Urine Bacteria Rare (<OCC) 11/16/17 19:50 U Random Total Protein 14.0 mg/dL (0.0-12.0) H 11/16/17 19:55 Ur Random Sodium 39 mmol/L 11/16/17 19:50 Influenza Typ A,B (EIA) Negative for flu a/b (NEGATIVE) 11/18/17 13:39 Attending/Attestation - Attestation I have personally seen and examined this patient.: Yes I have fully participated in the care of the patient.: Yes I have reviewed all pertinent clinical information, including history, physical exam and plan: Yes Notes (Text): 11/19/17 18:43 Patient was seen and examined at 9 AM Exam, assessment and plan were gone over with the resident. Discharge instructions were gone over with the patient in estonian with Nurse Luna. Spoke with Electronic Equipment Set Up Operator Meena and at the time of my exam with patient, and patient has declined TCU and has agreed to home PT and Electronic Equipment Set Up Operator Meena will be setting up home PT through [facility]. Atilio Jean D.O.
[2017-11-19 16:04] VITALS: BP 129/66; PULSE 72; TEMP 98.5; O2SAT 96
--- NOTE | 2017-11-21 14:57 | CARD ---
APPROVED REPORT EKG Measurement Heart [id number] <Conclusion> Normal sinus rhythm Left bundle branch block Abnormal ECG
== END 2017-11-19 16:33 | disposition home or self-care (01) | DRG 191 ==
LOC: C.ER 18:25 → C.9E 20:45 → C.6T 21:30 → OBSVTOIN 11-16 16:46
PROVIDERS: ADMIT Family Medicine; ATTEND Family Medicine
DX: J44.1 Chronic obstructive pulmonary disease with (acute) exacerbation (principal); N17.9 Acute kidney failure, unspecified; N18.4 Chronic kidney disease, stage 4 (severe); D64.9 Anemia, unspecified; E11.21 Type 2 diabetes mellitus with diabetic nephropathy; E11.22 Type 2 diabetes mellitus with diabetic chronic kidney disease; E11.65 Type 2 diabetes mellitus with hyperglycemia; E78.00 Pure hypercholesterolemia, unspecified; E86.0 Dehydration; F41.9 Anxiety disorder, unspecified; M79.1 Myalgia; N28.1 Cyst of kidney, acquired; K59.09 Other constipation; I12.9 Hypertensive chronic kidney disease with stage 1 through stage 4 chronic kidney disease, or unspecified chronic kidney disease; I25.10 Atherosclerotic heart disease of native coronary artery without angina pectoris; M06.9 Rheumatoid arthritis, unspecified; M81.0 Age-related osteoporosis without current pathological fracture; Z79.4 Long term (current) use of insulin; Z87.891 Personal history of nicotine dependence; Z95.5 Presence of coronary angioplasty implant and graft; Z79.82 Long term (current) use of aspirin

== ENCOUNTER 2017-11-26 12:59 | Emergency (ER) | payer MEDICARE, MEDICAID ==
[2017-11-26 13:00] VITALS: BMI 21.4
[2017-11-26] MEDS ORDERED: Sodium Chloride 0.9% 500 ML IV ONE (13:21)
[2017-11-26 13:59] LABS: SQUAMOUS EPITHIAL 10 /hpf (0-5); URINE BILIRUBIN NEGATIVE (NEGATIVE); URINE BLOOD NEGATIVE (NEGATIVE); URINE CLARITY Clear (Clear); URINE COLOR Straw (YELLOW); URINE GLUCOSE (UA) 3+ mg/dL (Normal); URINE LEUKOCYTE ESTERASE TRACE Leu/uL (Negative); URINE PROTEIN NEGATIVE (NEGATIVE); URINE UROBILINOGEN NORMAL mg/dL (0.2-1.0)
[2017-11-26 14:03] LABS: BASO % 0.1 % (0.0-2.0); EOS # 0.1 K/uL (0.0-0.7); EOS % 0.8 % (0.0-4.0); HEMOGLOBIN 9.4 g/dL (11.0-16.0); LYMPH % 17.6 % (20.0-40.0); MEAN CELL VOLUME 85.1 fL (81.0-99.0); MEAN CORPUSCULAR HEMOGLOBIN 27.4 pg (27.0-31.0); MEAN CORPUSCULAR HGB CONC 32.1 g/dL (33.0-37.0); MONO % 9.2 % (0.0-10.0); NEUT # 8.1 K/uL (1.8-7.0); NEUT % 72.3 % (50.0-75.0); RBC 3.43 Mil/uL (3.80-5.20); RED CELL DISTRIBUTION WIDTH 16.1 % (11.5-14.5); WHITE BLOOD COUNT 11.2 K/uL (4.8-10.8)
[2017-11-26 14:14] LABS: ALB/GLOB RATIO 1.2 (1.0-2.1); ALBUMIN 3.7 g/dL (3.5-5.0); ALT/SGPT 17 U/L (9-52); AST/SGOT 25 U/L (14-36); BLOOD UREA NITROGEN 41 mg/dL (7-17); CALCIUM 8.4 mg/dl (8.6-10.4); GFR AFRICAN-AMERICAN 57; GFR NON-AFRICAN AMERICAN 47
[2017-11-26] MEDS ORDERED: (Novolin R) Insulin Human Regular 100 units/ml vial IV STA (14:16)
[2017-11-26] MEDS ORDERED: Sodium Chloride 0.9% 500 ML IV STA (14:17)
[2017-11-26] MEDS ORDERED: (Novolin R) Insulin Human Regular 100 units/ml vial ONE (14:42)
[2017-11-26 16:10] VITALS: BP 150/74; PULSE 65; RESP 18; TEMP 98.3; O2SAT 98
--- NOTE | 2017-11-26 16:21 | C.PDOC ---
Time Seen by Provider: 11/26/17 13:13 Chief Complaint (Nursing): High Blood Sugar History Per: Patient, Family Onset/Duration Of Symptoms: Days (few) Current Symptoms Are (Timing): Still Present Severity: Moderate Current Diabetic Medications: Insulin Treatment Prior To Provider Evaluation: Accucheck Additional History Per: Prior Records Past Medical History Reviewed: Historical Data, Nursing Documentation, Vital Signs Vital Signs: Last Vital Signs Temp 98.3 F 11/26/17 16:09 Pulse 65 11/26/17 16:09 Resp 18 11/26/17 16:09 BP 150/74 11/26/17 16:09 Pulse Ox 98 11/26/17 16:09 - Medical History PMH: Anemia, Anxiety, Arthritis (R HIP; BACK), Asthma, Back Problems (HX CHRONIC BACK PAIN), CAD, COPD, Diabetes, Fractures (left wrist AND RT. HIP), Gastritis, HTN, Hypercholesterolemia, Hyperlipidemia, Osteoporosis, Rheumatoid Arthritis Surgical History: Coronary Stent (cad cath 02/2016 with stent) - [facility] Procedures APPLICATION OF SPLINT (06/18/14) EXCISION OF ASCENDING COLON, ENDO, DIAGN (12/05/16) EXCISION OF STOMACH, ENDO, DIAGN (12/05/16) FLUOROSCOPY OF LEFT HEART USING LOW OSMOLAR CONTRAST (02/05/16) GAIT TRAINING/AMBULAT TREATMENT USING ASSIST EQUIPMENT (11/08/15) INTRODUCE ANTI-INFLAM IN PERIPH NRV, PLEXI, PERC (11/08/15) INTRODUCE REGIONAL ANESTH IN PERIPH NRV, PLEXI, PERC (11/08/15) MEASURE OF CARDIAC SAMPL & PRESSURE, L HEART, PERC APPROACH (02/05/16) NEBULIZER THERAPY (06/16/14) REPAIR LEFT UPPER ARM TENDON, OPEN APPROACH (11/08/15) REPAIR OF HAMMER TOE (07/17/13) REPOSITION LEFT HUMERAL SHAFT WITH INT FIX, OPEN APPROACH (11/08/15) TRANSFUSE NONAUT RED BLOOD CELLS IN PERIPH VEIN, PERC (12/05/16) Family History: States: Unknown Family Hx - Social History Hx Tobacco Use: No Hx Alcohol Use: No Hx Substance Use: No - Immunization History Hx Tetanus Toxoid Vaccination: Yes (3 mos. ago) Hx Influenza Vaccination: No Hx Pneumococcal Vaccination: No Review Of Systems Except As Marked, All Systems Reviewed And Found Negative. Constitutional: Negative for: Fever, Weakness Cardiovascular: Negative for: Chest Pain Respiratory: Negative for: Cough, Shortness of Breath Gastrointestinal: Negative for: Vomiting, Abdominal Pain, Diarrhea Genitourinary: Negative for: Dysuria Musculoskeletal: Negative for: Neck Pain Skin: Negative for: Rash Neurological: Negative for: Weakness, Numbness, Altered Mental Status, Dizziness Physical Exam - Physical Exam Appears: Non-toxic, No Acute Distress Skin: Normal Color, Warm, Dry, No Rash Head: Atraumatic, Normacephalic Eye(s): bilateral: Normal Inspection, PERRL, EOMI Neck: Normal ROM, Supple Cardiovascular: Rhythm Regular Respiratory: Normal Breath Sounds, No Accessory Muscle Use Gastrointestinal/Abdominal: Soft, No Tenderness Back: No CVA Tenderness Extremity: Normal ROM, No Pedal Edema, No Calf Tenderness Neurological/Psych: Oriented x3, Normal Motor, Normal Sensation ED Course And Treatment - Laboratory Results Result Diagrams: 11/26/17 13:21 11/26/17 13:21 Interpretation Of Abnormal: Hyperglycemia. No signs of DKA. O2 Sat by Pulse Oximetry: 98 Pulse Ox Interpretation: Normal Progress Note: Pt states she has an appointment with her primary doctor tomorrow. Reassessment Condition: Improved Progress - Interventions Interventions:: Observation, Intravenous fluid - Medications Administered Intravenous: Other (Insulin) - Data Reviewed Data Reviewed: Lab, Old records - Patient Status Patient status: Mostly improved - Continuity of Care Discussed patient case with:: Patient, Family-HIPPA compliant, ED Nurse - Patient Plan Patient Plan: Discharge, F/U with PCP, Continue present meds Disposition Counseled Patient/Family Regarding: Studies Performed, Diagnosis, Need For Followup - Disposition Referrals: Chuck Gomez MD [Staff Provider] - Disposition: HOME/ ROUTINE Disposition Time: 16:22 Condition: IMPROVED Additional Instructions: Follow up with your doctor tomorrow for further evaluation and treatment. Return to the ER if you develop worsening of symptoms or if you have any other concerns. Instructions: Diabetes Type 2 (DC) Forms: [employer] (Kinyarwanda) Print Language: DOMINICAN - Clinical Impression Clinical Impression: Uncontrolled diabetes mellitus
== END 2017-11-26 16:42 | disposition home or self-care (01) ==
LOC: C.ER 12:59
DX: E11.65 Type 2 diabetes mellitus with hyperglycemia (principal); E78.00 Pure hypercholesterolemia, unspecified; I10 Essential (primary) hypertension; M06.9 Rheumatoid arthritis, unspecified; E78.5 Hyperlipidemia, unspecified
CPT/HCPCS: 80053; 81001; 82009; 82948; 85025; 99285; J7040

== ENCOUNTER 2017-12-07 13:08 | Emergency (ER) | payer MEDICARE, MEDICAID ==
[2017-12-07 13:08] VITALS: BMI 21.4
[2017-12-07 13:20] VITALS: RESP 18
[2017-12-07 14:20] LABS: BASO % 0.5 % (0.0-2.0); EOS # 0.1 K/uL (0.0-0.7); HEMOGLOBIN 9.9 g/dL (11.0-16.0); LYMPH # 0.7 K/uL (1.0-4.3); LYMPH % 10.4 % (20.0-40.0); MEAN CELL VOLUME 84.6 fL (81.0-99.0); MEAN CORPUSCULAR HEMOGLOBIN 28.2 pg (27.0-31.0); MEAN CORPUSCULAR HGB CONC 33.4 g/dL (33.0-37.0); MEAN PLATELET VOLUME 8.2 fL (7.2-11.7); MONO # 0.8 K/uL (0.0-0.8); MONO % 11.2 % (0.0-10.0); NEUT # 5.5 K/uL (1.8-7.0); NEUT % 76.9 % (50.0-75.0); RBC 3.51 Mil/uL (3.80-5.20); RED CELL DISTRIBUTION WIDTH 17.1 % (11.5-14.5); WHITE BLOOD COUNT 7.2 K/uL (4.8-10.8)
--- NOTE | 2017-12-07 14:42 | RAD ---
PROCEDURE: CHEST RADIOGRAPH, 1 VIEW HISTORY: Hypoglycemia COMPARISON: Comparison made with the chest radiograph and CT scan chest dated 11/17/2017 and 11/18/2017 respectively. FINDINGS: LUNGS: Linear scarring right lung apex on with a nodular component of less well seen on this study as compared to high-resolution CT scan. The possibility of underlying neoplasm was raised on the prior CT scan. Follow-up CT scan in 2 months recommended. The lung mackey are hyperinflated consistent with COPD. There appears to be some mild bibasilar atelectasis as well. PLEURA: No pneumothorax or pleural fluid seen. CARDIOVASCULAR: Heart remains enlarged unchanged. [place] enlarged again OSSEOUS STRUCTURES: No significant abnormalities. VISUALIZED UPPER ABDOMEN: Normal. OTHER FINDINGS: None. IMPRESSION: Linear scarring right lung apex on with a nodular component of less well seen on this study as compared to high-resolution CT scan. The possibility of underlying neoplasm was raised on the prior CT scan. Follow-up CT scan in 2 months recommended. The lung mackey are hyperinflated consistent with COPD. There appears to be some mild bibasilar atelectasis as well.
[2017-12-07 14:46] LABS: ALB/GLOB RATIO 1.1 (1.0-2.1); ALBUMIN 3.7 g/dL (3.5-5.0); CALCIUM 8.6 mg/dl (8.6-10.4)
[2017-12-07 14:49] LABS: TROPONIN I 0.014 ng/mL (0.00-0.120)
[2017-12-07] MEDS ORDERED: Sodium Chloride 0.9% 500 ML IV STA (14:51)
[2017-12-07 15:01] LABS: SQUAMOUS EPITHIAL 2 /hpf (0-5); URINE BACTERIA RARE (<OCC); URINE BILIRUBIN NEGATIVE (NEGATIVE); URINE BLOOD 1+ (NEGATIVE); URINE CLARITY Clear (Clear); URINE COLOR Colorless (YELLOW); URINE GLUCOSE (UA) 1+ mg/dL (Normal); URINE LEUKOCYTE ESTERASE NEG Leu/uL (Negative); URINE PROTEIN NEGATIVE (NEGATIVE); URINE UROBILINOGEN NORMAL mg/dL (0.2-1.0)
[2017-12-07 16:09] VITALS: BP 132/74; PULSE 69; TEMP 97.9; O2SAT 100
--- NOTE | 2017-12-07 17:16 | C.PDOC ---
History Of Present Illness Pt's daughter states that pt's glucose was in 400's this morning, so she gave her 30 units of insulin, however pt only ate a light breakfast. She then became confused, EMS found her to be hypoglycemic. She was given D50 with good response. Time Seen by Provider: 12/07/17 13:27 Chief Complaint (Nursing): Altered Mental Status History Per: Patient, EMS, Family Onset/Duration Of Symptoms: Other (this morning) Current Symptoms Are (Timing): Better Severity: Moderate Current Diabetic Medications: Insulin Causative (Exacerbating) Factor(s): Ate Less Than Normal, Accidentially Took To Much Medication (?) Treatment Prior To Provider Evaluation: Accucheck, D50W Given Response To Treatment: Good Response Additional History Per: Prior Records Past Medical History Reviewed: Historical Data, Nursing Documentation, Vital Signs Vital Signs: Last Vital Signs Temp 97.9 F 12/07/17 16:08 Pulse 69 12/07/17 16:08 Resp 18 12/07/17 16:08 BP 132/74 12/07/17 16:08 Pulse Ox 100 12/07/17 16:08 - Medical History PMH: Anemia, Anxiety, Arthritis (R HIP; BACK), Asthma, Back Problems (HX CHRONIC BACK PAIN), CAD, COPD, Diabetes, Fractures (left wrist AND RT. HIP), Gastritis, HTN, Hypercholesterolemia, Hyperlipidemia, Osteoporosis, Rheumatoid Arthritis Surgical History: Coronary Stent (cad cath 02/2016 with stent) - [facility] Procedures APPLICATION OF SPLINT (06/18/14) EXCISION OF ASCENDING COLON, ENDO, DIAGN (12/05/16) EXCISION OF STOMACH, ENDO, DIAGN (12/05/16) FLUOROSCOPY OF LEFT HEART USING LOW OSMOLAR CONTRAST (02/05/16) GAIT TRAINING/AMBULAT TREATMENT USING ASSIST EQUIPMENT (11/08/15) INTRODUCE ANTI-INFLAM IN PERIPH NRV, PLEXI, PERC (11/08/15) INTRODUCE REGIONAL ANESTH IN PERIPH NRV, PLEXI, PERC (11/08/15) MEASURE OF CARDIAC SAMPL & PRESSURE, L HEART, PERC APPROACH (02/05/16) NEBULIZER THERAPY (06/16/14) REPAIR LEFT UPPER ARM TENDON, OPEN APPROACH (11/08/15) REPAIR OF HAMMER TOE (07/17/13) REPOSITION LEFT HUMERAL SHAFT WITH INT FIX, OPEN APPROACH (11/08/15) TRANSFUSE NONAUT RED BLOOD CELLS IN PERIPH VEIN, PERC (12/05/16) Family History: States: Unknown Family Hx - Social History Hx Tobacco Use: No Hx Alcohol Use: No Hx Substance Use: No - Immunization History Hx Tetanus Toxoid Vaccination: Yes (3 mos. ago) Hx Influenza Vaccination: No Hx Pneumococcal Vaccination: Yes Review Of Systems Except As Marked, All Systems Reviewed And Found Negative. Constitutional: Negative for: Fever Cardiovascular: Negative for: Chest Pain Respiratory: Negative for: Cough, Shortness of Breath Gastrointestinal: Negative for: Vomiting, Abdominal Pain, Diarrhea Genitourinary: Negative for: Dysuria Musculoskeletal: Negative for: Neck Pain, Back Pain Skin: Negative for: Rash Neurological: Negative for: Weakness, Numbness Physical Exam - Physical Exam Appears: Non-toxic, No Acute Distress Skin: Normal Color, Warm, Dry, No Rash Head: Atraumatic, Normacephalic Eye(s): bilateral: Normal Inspection, PERRL, EOMI Neck: Normal ROM, Supple Cardiovascular: Rhythm Regular Respiratory: Normal Breath Sounds, No Accessory Muscle Use Gastrointestinal/Abdominal: Soft, No Tenderness Back: No CVA Tenderness Extremity: Normal ROM, No Pedal Edema, No Calf Tenderness Neurological/Psych: Oriented x3, Normal Motor, Normal Sensation ED Course And Treatment - Laboratory Results Result Diagrams: 12/07/17 14:17 12/07/17 14:17 Lab Interpretation: No Changes Compared To Prior Results ECG: Interpreted By Me, Viewed By Me ECG Rhythm: Sinus Rhythm, L BBB, Nonspecific Changes ECG Interpretation: No Changes From Prior Rate From EC O2 Sat by Pulse Oximetry: 100 Pulse Ox Interpretation: Normal - Radiology CXR: Viewed By Me, Read By Radiologist CXR Interpretation: Yes: No Acute Disease Progress Note: Pt ate food in the ED. Accucheck stable. Reassessment Condition: Improved Progress - Interventions Interventions:: Observation, Intravenous fluid - Data Reviewed Data Reviewed: Lab, Diagnostic imaging, EKG, Old records - Patient Status Patient status: Mostly improved - Continuity of Care Discussed patient case with:: Patient, Family-HIPPA compliant, ED Nurse - Patient Plan Patient Plan: Discharge, F/U with PCP, Continue present meds Disposition Counseled Patient/Family Regarding: Studies Performed, Diagnosis, Need For Followup - Disposition Referrals: Chuck Gomez MD [Staff Provider] - Disposition: HOME/ ROUTINE Disposition Time: 17:21 Condition: IMPROVED Additional Instructions: Eat meals at regular intervals. Do no exceed the dose of insulin prescribed. Follow up with your doctor. Return to the ER if you develop dizziness, confusion , worsening of symptoms or if you have any other concerns. Instructions: Low Blood Sugar in People With Diabetes Forms: [facility] (Telugu) - Clinical Impression Clinical Impression: Hypoglycemia due to insulin
--- NOTE | 2017-12-10 16:34 | CARD ---
APPROVED REPORT EKG Measurement Heart [id number] <Conclusion> Poor data quality, interpretation may be adversely affected Sinus rhythm with short MN Left bundle branch block Abnormal ECG
== END 2017-12-07 17:45 | disposition home or self-care (01) ==
LOC: C.ER 13:08
DX: E11.649 Type 2 diabetes mellitus with hypoglycemia without coma (principal); Z79.4 Long term (current) use of insulin; E78.00 Pure hypercholesterolemia, unspecified; E78.5 Hyperlipidemia, unspecified; I25.10 Atherosclerotic heart disease of native coronary artery without angina pectoris; J44.9 Chronic obstructive pulmonary disease, unspecified; M06.9 Rheumatoid arthritis, unspecified; I10 Essential (primary) hypertension
CPT/HCPCS: 71045; 80053; 81001; 82948; 84484; 85025; 93005; 96360; 99285; J7040

== ENCOUNTER 2018-01-08 15:16 | Inpatient (IN) | payer MEDICARE, MEDICAID ==
[2018-01-08 15:16] VITALS: BMI 21.4
[2018-01-08] MEDS: Albuterol-Ipratrop 3 mg / 0.5 (3 ml) UD IH SCH ×2 (16:31→16:49)
[2018-01-08] MEDS ORDERED: Albuterol-Ipratrop 3 mg / 0.5 (3 ml) UD ONE (16:34)
--- NOTE | 2018-01-08 16:39 | RAD ---
PROCEDURE: CHEST RADIOGRAPH, 1 VIEW HISTORY: SOB, cough COMPARISON: CT chest 11/18/2017. Chest x-ray x-ray 12/07/2017 FINDINGS: LUNGS: The right apical linear opacity is renoted and similar in appearance with radiographs. The more sensitive CT recent exams suggested some nodular component to it and differential considerations nodular scar versus neoplastic nodule. Please note short-term follow-up imaging has been recommended preferably with CT chest imaging in 3 months PLEURA: No pneumothorax or pleural fluid seen. CARDIOVASCULAR: Mild cardiomegaly -similar OSSEOUS STRUCTURES: No significant abnormalities. VISUALIZED UPPER ABDOMEN: Normal. OTHER FINDINGS: None. IMPRESSION: Persistent linear/ bandlike right apical opacity. The chest x-ray depiction of the nodular component of this bandlike opacity is less conspicuous than that suggested on CT. Comments: Please note the or sensitive evaluation with CT: "Interval appearance of new pleural base opacity at the medial aspect of the right lung apex since the previous exam may represent scar tissue. The possibility of neoplasm is less likely but not totally excluded. 3 months follow-up reassessment is suggested."
[2018-01-08 16:44] LABS: BASO % 0.1 % (0.0-2.0); EOS # 0.2 K/uL (0.0-0.7); HEMOGLOBIN 9.1 g/dL (11.0-16.0); LYMPH # 0.8 K/uL (1.0-4.3); MEAN CELL VOLUME 86.6 fL (81.0-99.0); MEAN CORPUSCULAR HEMOGLOBIN 29.1 pg (27.0-31.0); MEAN CORPUSCULAR HGB CONC 33.6 g/dL (33.0-37.0); MEAN PLATELET VOLUME 8.4 fL (7.2-11.7); MONO # 1.5 K/uL (0.0-0.8); MONO % 9.5 % (0.0-10.0); NEUT # 13.1 K/uL (1.8-7.0); NEUT % 84.4 % (50.0-75.0); PLATELET COUNT 239 K/uL (130-400); RBC 3.15 Mil/uL (3.80-5.20); RED CELL DISTRIBUTION WIDTH 16.8 % (11.5-14.5); WHITE BLOOD COUNT 15.6 K/uL (4.8-10.8)
[2018-01-08 16:59] LABS: ALBUMIN 3.2 g/dL (3.5-5.0); ALT/SGPT 23 U/L (9-52); AST/SGOT 26 U/L (14-36); BLOOD UREA NITROGEN 60 mg/dL (7-17); CALCIUM 8.2 mg/dl (8.6-10.4); GFR AFRICAN-AMERICAN 30; GFR NON-AFRICAN AMERICAN 25
[2018-01-08 17:13] LABS: B-TYPE NATRIURETIC PEPTIDE 3160 pg/mL (0-900)
[2018-01-08] MEDS ORDERED: Azithromycin 500mg/250ML NS 500 MG/250 ML BAG IVPB STA (17:17)
[2018-01-08] MEDS ORDERED: cefTRIAXone IV 1 gm in Dextros 50 ML IVPB ONE ×2 (17:17→17:57)
--- NOTE | 2018-01-08 17:26 | C.PDOC ---
Time Seen by Provider: 01/08/18 15:40 Chief Complaint (Nursing): Shortness Of Breath History Per: Patient, Family Onset/Duration Of Symptoms: Days (3) Current Symptoms Are (Timing): Still Present Current Respiratory Medications: See Home Med List Severity: Moderate Associated Symptoms: Fever (subjective), Productive Cough Past Medical History Reviewed: Historical Data, Nursing Documentation, Vital Signs Vital Signs: Last Vital Signs Temp 98.6 F 01/08/18 15:25 Pulse 82 01/08/18 15:25 Resp 18 01/08/18 16:05 BP 91/58 L 01/08/18 15:25 Pulse Ox 91 L 01/08/18 16:05 - Medical History PMH: Anemia, Anxiety, Arthritis (R HIP; BACK), Asthma, Back Problems (HX CHRONIC BACK PAIN), CAD, COPD, Diabetes, Fractures (left wrist AND RT. HIP), Gastritis, HTN, Hypercholesterolemia, Hyperlipidemia, Osteoporosis, Rheumatoid Arthritis Surgical History: Coronary Stent (cad cath 02/2016 with stent) - [facility] Procedures APPLICATION OF SPLINT (06/18/14) EXCISION OF ASCENDING COLON, ENDO, DIAGN (12/05/16) EXCISION OF STOMACH, ENDO, DIAGN (12/05/16) FLUOROSCOPY OF LEFT HEART USING LOW OSMOLAR CONTRAST (02/05/16) GAIT TRAINING/AMBULAT TREATMENT USING ASSIST EQUIPMENT (11/08/15) INTRODUCE ANTI-INFLAM IN PERIPH NRV, PLEXI, PERC (11/08/15) INTRODUCE REGIONAL ANESTH IN PERIPH NRV, PLEXI, PERC (11/08/15) MEASURE OF CARDIAC SAMPL & PRESSURE, L HEART, PERC APPROACH (02/05/16) NEBULIZER THERAPY (06/16/14) REPAIR LEFT UPPER ARM TENDON, OPEN APPROACH (11/08/15) REPAIR OF HAMMER TOE (07/17/13) REPOSITION LEFT HUMERAL SHAFT WITH INT FIX, OPEN APPROACH (11/08/15) TRANSFUSE NONAUT RED BLOOD CELLS IN PERIPH VEIN, PERC (12/05/16) Family History: States: Unknown Family Hx - Social History Hx Tobacco Use: No (Quit) Hx Alcohol Use: No Hx Substance Use: No - Immunization History Hx Tetanus Toxoid Vaccination: Yes (3 mos. ago) Hx Influenza Vaccination: No Hx Pneumococcal Vaccination: Yes Review Of Systems Except As Marked, All Systems Reviewed And Found Negative. Constitutional: Positive for: Fever, Malaise Cardiovascular: Positive for: Chest Pain Respiratory: Positive for: Cough, Shortness of Breath, Sputum, Wheezing. Negative for: Hemoptysis Gastrointestinal: Negative for: Vomiting, Abdominal Pain Genitourinary: Negative for: Dysuria Musculoskeletal: Negative for: Neck Pain Skin: Negative for: Rash Neurological: Negative for: Weakness, Numbness Physical Exam - Physical Exam Appears: In Acute Distress (mild), Chronically Ill Skin: Normal Color, Warm, Dry Head: Atraumatic, Normacephalic Eye(s): bilateral: PERRL, EOMI Neck: Normal ROM, Supple Cardiovascular: Rhythm Regular Respiratory: Wheezing Gastrointestinal/Abdominal: Soft, No Tenderness Extremity: Normal ROM, No Pedal Edema, No Calf Tenderness Neurological/Psych: Oriented x3, Normal Motor, Normal Sensation ED Course And Treatment - Laboratory Results Result Diagrams: 01/08/18 16:41 01/08/18 16:41 Lab Interpretation: Abnormal Interpretation Of Abnormal: Leukocytosis. Elevated BUN/Cr. ECG: Interpreted By Me, Viewed By Me ECG Rhythm: Sinus Rhythm, L BBB, Nonspecific Changes ECG Interpretation: No Changes From Prior Rate From EC O2 Sat by Pulse Oximetry: 91 (on RA) Pulse Ox Interpretation: Abnormal Interpretation Of Abnormal: Hypoxia on RA - Radiology CXR: Viewed By Me, Read By Radiologist CXR Interpretation: Yes: Other (Persistent linear/ bandlike right apical opacity.) Progress Note: After meds pt in no longer in any distress, but still wheezing. Progress - Interventions Interventions:: Observation, Oxygen - Medications Administered Inhaled nebulized: Anticholinergic, Beta-2 agonist Intravenous: Corticosteroid - Data Reviewed Data Reviewed: Lab, Diagnostic imaging, EKG, Old records - Patient Status Patient status: Partially improved - Critical Care Citical Care: Excluding Proc Time Critical Care Time: 45 minutes - Continuity of Care Discussed patient case with:: Patient, Family-HIPPA compliant, ED Nurse, Covering for PMD - Patient Plan Patient Plan: Admission Disposition Discussed With : Dori Huston Comment: She accepted pt on hospitalist service. Doctor Will See Patient In The: Hospital Counseled Patient/Family Regarding: Studies Performed, Diagnosis - Disposition Disposition: HOSPITALIZED Disposition Time: 17:30 Condition: FAIR - Clinical Impression Clinical Impression: Chr obstructive pulmonary disease w/ acute lower respiratory infxn
--- NOTE | 2018-01-08 17:27 | CP.PCM.HP ---
<Camilla Chavira - Last Filed: 01/08/18 20:04> History of Present Illness - History of Present Illness History of Present Illness: Code Status: DNR/DNI (discussed with patient at bedside at 17:30 with daughter Kira Curiel at bedside) Contact: Eleonora Curiel #[phone] CC: "Chest Pain" HPI: 86 year old female with past medical history of CAD, HTN, DM, gastritis, asthma, arthritis, COPD, anxiety who presents to the ER for chest pain and shortness of breath. Patient states the chest pain has been going on for 1 week but it was worse today. Patient states she feels short of breath at home and has not been using her home oxygen for some time now as she states she does not have the proper tubing to use it. She also states all her bones all over body aches and it makes it difficult for her to walk. Patient states her last bowel movement was yesterday but states she has chronic straining when having a bowel movement. Patient's daughter had a cold recently. Patient currently denies recent travel, nausea, vomiting, fever, dysuria or diarrhea. PMD: Dr. Gomez Past Medical History: CAD, HTN, DM, gastritis, asthma, arthritis, COPD, anxiety Past Surgical History: hysterectomy and oopherectomy, cataract surgery, Cardiac cath 02/2016 with 2x stents Family History: Mother had asthma, heart disease, at age 92 Medications: xanax 1 mg PO daily; norvasc 10 mg po daily; asa 81 mg daily; colace 100 mg pobid; nexium 40mg daily; ferrous sulfate 325 bid; furosemide; Lantus 10 units HS; Insulin aspart 5 units AC TID; losartan 25 mg daily; Amitiza 24 mcg by mouth twice daily; Advair 50/250 mcg inhaled twice daily, Crestor 5 mg by mouth once daily at bedtime; Albuterol 90 mcg 2 puffs inhaled every 6 hours as needed for shortness of breath; Combigan (0.5%/0.2%) 1 drop in each eye twice daily at breakfast and dinner Allergies: NKDA Social History: smoked 1ppd x 50 yrs, quit 20 yrs ago; social drinker in the past, denies current use. denies illicit drug use. Present on Admission - Present on Admission Any Indicators Present on Admission: No Review of Systems - Constitutional Constitutional: Chills, Weakness. absent: Fever - Cardiovascular Cardiovascular: Chest Pain, Dyspnea, Pedal Edema. absent: Palpitations - Respiratory Respiratory: Dyspnea, Dyspnea on Exertion. absent: Cough, Excessive Mucous Production - Gastrointestinal Gastrointestinal: absent: Constipation, Diarrhea, Nausea, Vomiting - Genitourinary Genitourinary: absent: Dysuria - Musculoskeletal Musculoskeletal: Arthralgias, Back Pain, Muscle Weakness - Neurological Neurological: absent: Numbness, Headaches, Tingling - Endocrine Endocrine: absent: Palpitations Past Patient History - Infectious Disease Hx of Infectious Diseases: None - Tetanus Immunizations Tetanus Immunization: Unknown - Past Medical History & Family History Past Medical History?: Yes - Past Social History Smoking Status: Never Smoked - CARDIAC Hx Hypercholesterolemia: Yes Hx Hypertension: Yes - PULMONARY Hx Asthma: Yes Hx Chronic Obstructive Pulmonary Disease (COPD): Yes - NEUROLOGICAL Hx Seizures: No - HEENT Hx HEENT Problems: Yes Hx Cataracts: Yes (right eye) Hx Glaucoma: Yes (left eye) Other/Comment: [facility] LEFT EAR - RENAL Hx Chronic Kidney Disease: No - HEMATOLOGICAL/ONCOLOGICAL Hx Anemia: Yes - INTEGUMENTARY Hx Dermatological Problems: No - MUSCULOSKELETAL/RHEUMATOLOGICAL Hx Arthritis: Yes (R HIP; BACK) Hx Fractures: Yes (left wrist AND RT. HIP) Hx Osteoporosis: Yes Hx Rheumatoid Arthritis: Yes - GASTROINTESTINAL Hx Gastritis: Yes - GENITOURINARY/GYNECOLOGICAL Hx Genitourinary Disorders: Yes Other/Comment: fibroid surgery - PSYCHIATRIC Hx Anxiety: Yes Hx Substance Use: No - SURGICAL HISTORY Hx Coronary Stent: Yes (cad cath 02/2016 with stent) - ANESTHESIA Hx Anesthesia: Yes Hx Anesthesia Reactions: No Hx Malignant Hyperthermia: No Meds Allergies/Adverse Reactions: Allergies Allergy/AdvReac Type Severity Reaction Status Date / Time No Known Allergies Allergy Verified 01/08/18 15:27 Physical Exam - Constitutional Appears: No Acute Distress, Cachectic, Chronically Ill - Head Exam Head Exam: ATRAUMATIC, NORMAL INSPECTION - Eye Exam Eye Exam: EOMI, Normal appearance, PERRL Pupil Exam: NORMAL ACCOMODATION - ENT Exam ENT Exam: Mucous Membranes Dry Additional comments: Decreased hearing on the left ear - Respiratory Exam Respiratory Exam: Wheezes (bilateral throughout lungs), NORMAL BREATHING PATTERN. absent: Accessory Muscle Use - Cardiovascular Exam Cardiovascular Exam: REGULAR RHYTHM, +S1, +S2 - GI/Abdominal Exam GI & Abdominal Exam: Normal Bowel Sounds, Soft. absent: Guarding, Tenderness - Extremities Exam Extremities exam: Positive for: normal capillary refill, normal inspection, pedal pulses present. Negative for: pedal edema, tenderness - Neurological Exam Neurological exam: Alert, Oriented x3 - Psychiatric Exam Psychiatric exam: Anxious - Skin Skin Exam: Normal Color Results - Vital Signs Recent Vital Signs: Last Vital Signs Temp 98.6 F 01/08/18 15:25 Pulse 82 01/08/18 15:25 Resp 18 01/08/18 16:05 BP 91/58 L 01/08/18 15:25 Pulse Ox 91 L 01/08/18 17:26 - Labs Result Diagrams: 01/08/18 16:41 01/08/18 16:41 Labs: Laboratory Results - last 24 hr 01/08/18 01/08/18 16:41 16:41 WBC 15.6 H D RBC 3.15 L Hgb 9.1 L Hct 27.2 L MCV 86.6 D MCH 29.1 MCHC 33.6 RDW 16.8 H Plt Count 239 MPV 8.4 Neut % (Auto) 84.4 H Lymph % (Auto) 5.0 L [place] % (Auto) 9.5 Eos % (Auto) 1.0 Baso % (Auto) 0.1 Neut # (Auto) 13.1 H Lymph # (Auto) 0.8 L [place] # (Auto) 1.5 H Eos # (Auto) 0.2 Baso # (Auto) 0.0 Sodium 138 Potassium 4.3 Chloride 98 Carbon Dioxide 28 Anion Gap 15 BUN 60 H Creatinine 1.9 H Est GFR ( Amer) 30 Est GFR (Non-Af Amer) 25 Random Glucose 185 H Calcium 8.2 L Total Bilirubin 0.9 AST 26 ALT 23 Alkaline Phosphatase 95 Troponin I < 0.0120 NT-Pro-B Natriuret Pep 3160 H Total Protein 6.5 Albumin 3.2 L Globulin 3.3 Albumin/Globulin Ratio 1.0 Assessment & Plan - Assessment and Plan (Free Text) Assessment: Shortness of breath - Secondary to COPD exacerbation vs. infection - Patient admitted to tele - Pulm Consult: Dr. Copeland --> help appreciated - chest xray (01/08/18): Persistent linear/ bandlike right apical opacity. The chest x-ray depiction of the nodular component of this bandlike opacity is less conspicuous than that suggested on CT. Comments: Please note the or sensitive evaluation with CT: "Interval appearance of new pleural base opacity at the medial aspect of the right lung apex since the previous exam may represent scar tissue. The possibility of neoplasm is less likely but not totally excluded. 3 months follow-up reassessment is suggested." - f/u ABG - f/u Legionella urine, Mycoplasma IgM, Strep pneumoniae, influenza A - Medications: * Duonebs Q4H scheduled * Spiriva 18mcg inhaled daily * Solumedrol 40mg IV q8h * NS 50cc/hr --> to at midnight * Robotussin with codeine 5ml POq4h PRN for cough * Azithromycin 500mg IV daily (started 01/08/18) * Ceftriaxone 1gm IV daily (started 01/08/18) Leukocytosis - possibly secondary to infection vs. COPD exacerbation - WBC on admission (01/08/18): 15.6 - f/u blood cultures x2 - f/u urine cultures - Medications: * Azithromycin 500mg IV daily (started 01/08/18) * Ceftriaxone 1gm IV daily (started 01/08/18) - Chest Xray (01/08/18): Persistent linear/ bandlike right apical opacity. The chest x-ray depiction of the nodular component of this bandlike opacity is less conspicuous than that suggested on CT. Comments: Please note the or sensitive evaluation with CT: "Interval appearance of new pleural base opacity at the medial aspect of the right lung apex since the previous exam may represent scar tissue. The possibility of neoplasm is less likely but not totally excluded. 3 months follow-up reassessment is suggested." Acute chest pain most likely secondary to COPD exacerbation - Cardio Consult: Dr. Hernandez --> help appreciated - BNP 3160 - Troponin NEGATIVE - f/u trop and EKG - Previous ECHO (01/22/17): EF 52% - f/u ECHO - Medications: * ASA 81 mg PO QD * Crestor 5 mg PO HS * Norvasc 10 mg PO daily * Losartan 25 mg daily * Lasix 20 mg IVP daily History of CAD - ECHO (01/22/17): EF 52% - f/u Lipid panel - Medications: * ASA 81mg PO daily * Crestor 5mg po HS History of Hypertension - Medications: * Norvasc 10mg po daily * Losartan 25mg daily History of Diabetes mellitus - Hemoglobin A1C: 7.4 (10/04/17) -f/u hA1c - Accuchecks - ISS - low dose - Hypoglycemia protocol Acute Renal Insufficiency - possibly secondary to COPD/DM/HTN - Monitor BUN/Cr History of Vertigo - Meclizine 12.5 mg PO BID History of Anxiety - Xanax 0.5mg po daily History of Anemia - Monitor H/H - ferrous sulfate 325mg PO TID Anemia Work-up (12/06/2016): - Iron: 39, TIBC: 325, %SAT: 12 and Ferritin: 9.0 History of Constipation - Colace 100mg po bid Prophylaxis - SCDs - Lovenox 30mg SC daily - Protonix 40mg PO daily - Florastor 250mg po bid - Heart healthy diet/ Moderate Carb/2g Na, 1500mL - Ensure x3 - PT eval and treat Case discussed with Dr. Adriana Chavira PGY-1 <Torie Wright V - Last Filed: 01/08/18 21:51> Results - Vital Signs Recent Vital Signs: Last Vital Signs Temp 98.6 F 01/08/18 15:25 Pulse 71 01/08/18 17:36 Resp 14 01/08/18 17:36 BP 91/58 L 01/08/18 15:25 Pulse Ox 98 01/08/18 17:36 - Labs Result Diagrams: 01/08/18 16:41 01/08/18 16:41 Labs: Laboratory Results - last 24 hr 01/08/18 01/08/18 16:41 16:41 WBC 15.6 H D RBC 3.15 L Hgb 9.1 L Hct 27.2 L MCV 86.6 D MCH 29.1 MCHC 33.6 RDW 16.8 H Plt Count 239 MPV 8.4 Neut % (Auto) 84.4 H Lymph % (Auto) 5.0 L [place] % (Auto) 9.5 Eos % (Auto) 1.0 Baso % (Auto) 0.1 Neut # (Auto) 13.1 H Lymph # (Auto) 0.8 L [place] # (Auto) 1.5 H Eos # (Auto) 0.2 Baso # (Auto) 0.0 Neutrophils % (Manual) 87 H Band Neutrophils % 5 H Lymphocytes % (Manual) 6 L Monocytes % (Manual) 1 Eosinophils % (Manual) 1 Platelet Estimate Normal Sodium 138 Potassium 4.3 Chloride 98 Carbon Dioxide 28 Anion Gap 15 BUN 60 H Creatinine 1.9 H Est GFR ( Amer) 30 Est GFR (Non-Af Amer) 25 Random Glucose 185 H Calcium 8.2 L Total Bilirubin 0.9 AST 26 ALT 23 Alkaline Phosphatase 95 Troponin I < 0.0120 NT-Pro-B Natriuret Pep 3160 H Total Protein 6.5 Albumin 3.2 L Globulin 3.3 Albumin/Globulin Ratio 1.0 Attending/Attestation - Attestation I have personally seen and examined this patient.: Yes I have fully participated in the care of the patient.: Yes I have reviewed all pertinent clinical information: Yes Notes (Text): Patient seen, examined, and case discussed with day-time resident. Patient seen in Bed 11 in the Emergency Room with daughter at bedside. Patient reports she has dry cough, body aches pains for past couple of days. Daughter notes patient has not been eating much, no recent travel, and the daughter herself is getting over a cold. She reports she came to visit Dr. Gomez yesterday for constipation, was prescribed a liquid to help relieve constipation. Patient reports she is former smoker, used to smoke when she was very young. Patient reports she used multiple nebulizers last night but reports she feels tight. In the Emergency Room, patient has received dose Rocephin 1gram IV X1, Azithromycin 500mg IV X1, and Solumedrol 125mg IVPX1. Assessment/Plan 1) COPD Exacerbation Pneumonia Assessment/Plan * Monitor on telemetry * Duonebs Q4H scheduled * Spiriva 18mcg inhaled q daily * Solumedrol 40mg IV Q8H * Ordered for ABG * Gentle hydration (NS 50cc/hr to at midnight) * Robotussin w codeine 5ml POq4h PRN cough * Chest xray (01/08/18): persistent linear/bandline right apical opacity. The chest xray depiction of the nodular component of this bandlike opacity is less conspicous than suggest on CT * Ordered for Legionella urine, Mycoplasma IgM, Strep pneumoniae, influenza A ( body aches pains, chills is the reason) 2) Chest Pain Hx of Coronary Artery Disease + Stent Assessment/Plan * Cardiology consult on board Dr. Hernandez->help appreciated * Monitor EKG and ROMIs * elevated probnp * Check echocardiogram * ASA 81 mg PO QD * Crestor 5 mg PO HS * Norvasc 10 mg PO daily * Losartan 25 mg daily * Lasix 20 mg IVP daily * beta-veronique contraindicated in light of hx of COPD side effect: bronchospasm 3) Leukocytosis Assessment/Plan: * unclear infectious or dehydration * Ordered for blood cultures X2 * Urine culture * Chest xray (01/08/18): persistent linear/bandline right apical opacity. The chest xray depiction of the nodular component of this bandllike opacity is less conspicous than suggest on CT 4) History of Anemia Assessment/Plan: * Monitor H/H * hgb: 9.1 5) Constipation Assessment/Plan: * Colace 100 mg PO daily * Order for dose of Ducolax 5mg PO X1 5) History of Diabetes mellitus Assessment/Plan: * HgbA1C in 06/22 was 9.2 * Hemoglobin A1C: 7.4 (10/04/17) * Accuchecks QAC and HS * ISS - low dose * Hypoglycemia protocol 6) History of Hypertension Assessment/Plan: * Norvasc 10 mg PO daily * Losartan 25 mg daily * Lasix 20 mg PO daily 7) History of Anxiety Assessment/Plan: * Xanax 0.25 mg po prn anxiety 8) History of Vertigo Assessment/Plan: * Meclizine 12.5 mg PO BID 9) Acute Renal insufficiency Assessment/Plan: * elevated * monitor BUN/Cr * gentle hydration (fluid to at midnight) * stage 3 10) Prophylactic measure Assessment/Plan: * SCDs * Lovenox 30 mg SC daily * Pepcid 20 mg PO daily * Heart healthy diet * Ensure x3 * PT eval and treat * Decreasing hearing at left * DNR/DNI
[2018-01-08 18:01] LABS: BANDS 5 % (0-2); EOSINOPHIL 1 % (0-4); LYMPHOCYTE 6 % (20-40); MONOCYTE 1 % (0-10); NEUTROPHIL 87 % (50-75); PLATELET ESTIMATE NORMAL (NORMAL); TOTAL CELLS COUNTED 100
[2018-01-08] MEDS ORDERED: Glucagon Recombinant 1 mg Inj IM PRN (18:21)
[2018-01-08] MEDS ORDERED: Dextrose 50% SYRINGE Inj (50 ml) IV PRN (18:21)
[2018-01-08] MEDS ORDERED: Bisacodyl 5mg EC Tab PO ONE (18:22)
[2018-01-08] MEDS ORDERED: Sodium Chloride 0.9% 1,000 ML IV SCH (18:45)
[2018-01-08] MEDS ORDERED: guaiFENesin-Codeine 100-10mg/5ml Syrup (10ml) UD PO SCH (20:00)
[2018-01-08] MEDS: (Novolin R) Insulin Human Regular 100 units/ml vial SC SCH ×2 (20:09→22:19)
[2018-01-08] MEDS: Albuterol-Ipratrop 3 mg / 0.5 (3 ml) UD INH SCH ×2 (20:14→23:46)
[2018-01-08] MEDS ORDERED: guaiFENesin-Codeine 100-10mg/5ml Syrup (10ml) UD PO PRN (21:54)
[2018-01-08] MEDS ORDERED: (Novolog) Insulin Aspart, Recombinant 100 u/ml 10 ml vial SC ONE (22:39)
[2018-01-09 00:22] LABS: BASO % 0.1 % (0.0-2.0); HEMOGLOBIN 9.3 g/dL (11.0-16.0)
[2018-01-09 00:38] LABS: HDL CHOLESTEROL 28 mg/dL (30-70)
[2018-01-09 00:40] LABS: LYMPH # 0.3 K/uL (1.0-4.3); LYMPH % 2.1 % (20.0-40.0); MEAN CELL VOLUME 88.1 fL (81.0-99.0); MEAN CORPUSCULAR HEMOGLOBIN 28.6 pg (27.0-31.0); MEAN CORPUSCULAR HGB CONC 32.5 g/dL (33.0-37.0); MEAN PLATELET VOLUME 8.8 fL (7.2-11.7); MONO # 0.1 K/uL (0.0-0.8); NEUT # 14.1 K/uL (1.8-7.0); NEUT % 96.8 % (50.0-75.0); PLATELET COUNT 228 K/uL (130-400); RBC 3.25 Mil/uL (3.80-5.20); RED CELL DISTRIBUTION WIDTH 16.8 % (11.5-14.5); WHITE BLOOD COUNT 14.5 K/uL (4.8-10.8)
[2018-01-09 00:52] LABS: CK-MB 1.41 ng/mL (0.0-3.38)
[2018-01-09 01:07] LABS: LDL CHOLESTEROL < 30 mg/dL (0-129)
[2018-01-09] MEDS ORDERED: (Novolog) Insulin Aspart, Recombinant 100 u/ml 10 ml vial SC STA (02:15)
[2018-01-09] MEDS: MethylPREDNISolone 40 mg Vial IVP SCH ×3 (02:20→17:39)
[2018-01-09 02:25] LABS: BANDS 4 % (0-2); LYMPHOCYTE 4 % (20-40); MONOCYTE 1 % (0-10); NEUTROPHIL 91 % (50-75); PLATELET ESTIMATE NORMAL (NORMAL); TOTAL CELLS COUNTED 100
[2018-01-09 02:26] LABS: ANISOCYTOSIS SLIGHT; POIKILOCYTOSIS SLIGHT
[2018-01-09] MEDS: Albuterol-Ipratrop 3 mg / 0.5 (3 ml) UD INH SCH ×5 (03:12→19:30)
--- NOTE | 2018-01-09 07:14 | CP.PCM.PN ---
<FanCamilla PattiTierney - Last Filed: 01/09/18 15:18> Subjective - Date & Time of Evaluation Date of Evaluation: 01/09/18 Time of Evaluation: 07:00 - Subjective Subjective: Medicine Progress Note: Patient was seen and examined at bedside in the AM. Patient states she was not able to urinate this morning and per the nurse they had to straight cath her to remove the retained urine. Patient states her breathing does feel better than when she was admitted. Objective - Vital Signs/Intake and Output Vital Signs (last 24 hours): Temp Pulse Resp BP Pulse Ox 97.6 F 78 20 128/53 L 94 L 01/09/18 04:36 01/09/18 04:36 01/09/18 04:36 01/09/18 04:36 01/09/18 04:36 Intake and Output: 01/09/18 01/09/18 06:59 18:59 Intake Total 400 Output Total 500 Balance -100 - Medications Medications: Current Medications Albuterol/Ipratropium (Duoneb 3 Mg/0.5 Mg (3 Ml) Ud) 3 ml INH RQ4 [facility] Last Admin: 01/09/18 03:12 Dose: 3 ml Alprazolam (Xanax) 0.25 mg PO DAILY PRN PRN Reason: Anxiety Last Admin: 01/08/18 22:25 Dose: 0.25 mg Aspirin (Aspirin Chewable) 81 mg PO DAILY [facility] Dextrose (Dextrose 50% Inj) 0 ml IV STAT PRN; Protocol PRN Reason: Hypoglycemia Protocol Dextrose (Glutose 15) 0 gm PO ONCE PRN; Protocol PRN Reason: Hypoglycemia Protocol Docusate Sodium (Colace) 100 mg PO DAILY [facility] Enoxaparin Sodium (Lovenox) 30 mg SC DAILY [facility] Furosemide (Lasix) 20 mg IVP DAILY [facility] Glucagon (Glucagen Diagnostic Kit) 0 mg IM STAT PRN; Protocol PRN Reason: Hypoglycemia Protocol Guaifenesin/Codeine Phosphate (Guaifenesin/Codeine) 5 ml PO Q6H PRN PRN Reason: Cough Dextrose (Dextrose 5% In Water 1000 Ml) 1,000 mls @ 0 mls/hr IV .Q0M PRN; Protocol; Per Protocol PRN Reason: Hypoglycemia Protocol Azithromycin 500 mg/ Sodium (Chloride) 250 mls @ 250 mls/hr IVPB DAILY [facility] PRN Reason: Protocol Ceftriaxone Sodium 1 gm/ (Sodium Chloride) 100 mls @ 100 mls/hr IVPB DAILY [facility] PRN Reason: Protocol Insulin Human Regular (Novolin R) 0 unit SC ACHS [facility] PRN Reason: Protocol Last Admin: 01/08/18 22:19 Dose: 4 unit Losartan Potassium (Cozaar) 25 mg PO DAILY [facility] Meclizine HCl (Antivert) 12.5 mg PO BID [facility] Methylprednisolone (Solu-Medrol) 40 mg IVP Q8H [facility] Last Admin: 01/09/18 02:20 Dose: 40 mg Pantoprazole Sodium (Protonix Inj) 40 mg IVP DAILY [facility] Rosuvastatin Calcium (Crestor) 5 mg PO HS [facility] Last Admin: 01/08/18 22:19 Dose: 5 mg Saccharomyces Boulardii (Florastor) 250 mg PO BID [facility] Tiotropium [place] (Spiriva) 18 mcg INH RQ24 [facility] Tiotropium [place] (Spiriva Inhalation Handihaler Device) 1 inhaler INH ONCE ONE Stop: 01/09/18 08:01 - Labs Labs: 01/09/18 01:00 01/08/18 16:41 - Constitutional Appears: No Acute Distress, Chronically Ill - Head Exam Head Exam: ATRAUMATIC, NORMAL INSPECTION - Eye Exam Eye Exam: EOMI, Normal appearance, PERRL. absent: Scleral icterus Pupil Exam: NORMAL ACCOMODATION - ENT Exam ENT Exam: Mucous Membranes Moist - Respiratory Exam Respiratory Exam: Decreased Breath Sounds, NORMAL BREATHING PATTERN. absent: Wheezes - Cardiovascular Exam Cardiovascular Exam: REGULAR RHYTHM, +S1, +S2. absent: JVD - GI/Abdominal Exam GI & Abdominal Exam: Soft, Normal Bowel Sounds. absent: Tenderness - Extremities Exam Extremities Exam: Normal Inspection. absent: Pedal Edema - Neurological Exam Neurological Exam: Alert, Awake, Oriented x3 - Psychiatric Exam Psychiatric exam: Normal Affect, Normal Mood - Skin Skin Exam: Normal Color Assessment and Plan - Assessment and Plan (Free Text) Assessment: Shortness of breath - Secondary to COPD exacerbation vs. infection - Patient admitted to tele - Pulm Consult: Dr. Copeland --> help appreciated - Images: * Chest xray (01/08/18): Persistent linear/ bandlike right apical opacity. The chest x-ray depiction of the nodular component of this bandlike opacity is less conspicuous than that suggested on CT. Comments: Please note the or sensitive evaluation with CT: "Interval appearance of new pleural base opacity at the medial aspect of the right lung apex since the previous exam may represent scar tissue. The possibility of neoplasm is less likely but not totally excluded. 3 months follow-up reassessment is suggested." * Chest Xray (01/09/18): Stable chronic prominence of the bilateral interstitial markings. No focal consolidation or pleural effusion. * Chest CT (01/09/18): Chronic appearing scarring changes right lung apex associated with dystrophic type calcification which appears stable however previously noted soft tissue in the medial lung diminished in size. There is a new localized area of pleural thickening with what may represent lobular parenchymal atelectasis left lung apex. Additional scarring changes seen in the lateral aspect right upper lobe, both lung bases and middle lobe/lingular regions. Mild emphysematous changes. There are 2 small to medium-sized mediastinal lymph nodes. Cardiomegaly. Cholecystectomy. - ABG: pH 7.41; HCO3 121; CO2 37 - f/u Mycoplasma IgM, Strep pneumoniae - Medications: * Duonebs Q4H scheduled * Spiriva 18mcg inhaled daily * Solumedrol 40mg IV q8h * NS 50cc/hr --> to at midnight * Robotussin with codeine 5ml POq4h PRN for cough * Azithromycin 500mg IV daily (started 01/08/18) * Ceftriaxone 1gm IV daily (started 01/08/18) Leukocytosis with bands - possibly secondary to infection vs. COPD exacerbation in addition to steroid use - WBC on admission (01/08/18): 15.6 --> 14.5 - f/u blood cultures x2 - f/u urine cultures - per overnight nurse to catch a clean specimen they had to straight cath patient and during that process they received 500cc of urine - Negative: Legionella urine and influenza A - UA: negative - Medications: * Azithromycin 500mg IV daily (started 01/08/18) * Ceftriaxone 1gm IV daily (started 01/08/18) * Solumedrol 40mg IV q8h - Chest Xray (01/08/18): Persistent linear/ bandlike right apical opacity. The chest x-ray depiction of the nodular component of this bandlike opacity is less conspicuous than that suggested on CT. Comments: Please note the or sensitive evaluation with CT: "Interval appearance of new pleural base opacity at the medial aspect of the right lung apex since the previous exam may represent scar tissue. The possibility of neoplasm is less likely but not totally excluded. 3 months follow-up reassessment is suggested." Acute chest pain most likely secondary to COPD exacerbation - Cardio Consult: Dr. Hernandez --> help appreciated - BNP 3160 - Troponin x3 NEGATIVE - Previous ECHO (01/22/17): EF 52% - f/u ECHO - Medications: * ASA 81 mg PO QD * Crestor 5 mg PO HS * Norvasc 10 mg PO daily * Losartan 25 mg daily * Lasix 20 mg IVP daily History of CAD - ECHO (01/22/17): EF 52% - Lipid panel: Total Cholesterol 81; Triglycerides 61; LDL <30; HDL 28 - Medications: * ASA 81mg PO daily * Crestor 5mg po HS History of Hypertension - Medications: * Norvasc 10mg po daily * Losartan 25mg daily History of Diabetes mellitus - Hemoglobin A1C: 7.4 (10/04/17) - hA1c: 7.1 - Accuchecks - ISS - high dose - Hypoglycemia protocol Acute Renal Insufficiency - possibly secondary to COPD/DM/HTN - Monitor BUN/Cr History of Vertigo - Meclizine 12.5 mg PO BID History of Anxiety - Xanax 0.5mg po daily History of Anemia - Monitor H/H - ferrous sulfate 325mg PO TID Anemia Work-up (12/06/2016): - Iron: 39, TIBC: 325, %SAT: 12 and Ferritin: 9.0 History of Constipation - Colace 100mg po bid Prophylaxis - SCDs - Lovenox 30mg SC daily - Protonix 40mg PO daily - Florastor 250mg po bid - Heart healthy diet/ Moderate Carb/2g Na, 1500mL - Ensure x3 - PT eval and treat - Palliative care Case discussed with Dr. Adriana Chavira PGY-1 <Torie Wright V - Last Filed: 01/11/18 14:19> Objective - Vital Signs/Intake and Output Vital Signs (last 24 hours): Temp Pulse Resp BP Pulse Ox 98.1 F 85 20 138/63 100 01/10/18 15:13 01/10/18 15:13 01/10/18 15:13 01/10/18 15:13 01/10/18 15:13 Intake and Output: 01/10/18 01/10/18 06:59 18:59 Intake Total 250 650 Balance 250 650 - Medications Medications: Current Medications Albuterol/Ipratropium (Duoneb 3 Mg/0.5 Mg (3 Ml) Ud) 3 ml INH RQ4 [facility] Last Admin: 01/10/18 15:30 Dose: 3 ml Alprazolam (Xanax) 0.25 mg PO DAILY PRN PRN Reason: Anxiety Last Admin: 01/08/18 22:25 Dose: 0.25 mg Aspirin (Aspirin Chewable) 81 mg PO DAILY [facility] Last Admin: 01/10/18 09:06 Dose: 81 mg Dextrose (Dextrose 50% Inj) 0 ml IV STAT PRN; Protocol PRN Reason: Hypoglycemia Protocol Dextrose (Glutose 15) 0 gm PO ONCE PRN; Protocol PRN Reason: Hypoglycemia Protocol Docusate Sodium (Colace) 100 mg PO DAILY [facility] Last Admin: 01/10/18 09:07 Dose: 100 mg Enoxaparin Sodium (Lovenox) 30 mg SC DAILY [facility] Last Admin: 01/10/18 09:10 Dose: 30 mg Furosemide (Lasix) 20 mg IVP DAILY [facility] Last Admin: 01/10/18 09:07 Dose: 20 mg Glucagon (Glucagen Diagnostic Kit) 0 mg IM STAT PRN; Protocol PRN Reason: Hypoglycemia Protocol Guaifenesin/Codeine Phosphate (Guaifenesin/Codeine) 5 ml PO Q6H PRN PRN Reason: Cough Last Admin: 01/10/18 05:44 Dose: 5 ml Dextrose (Dextrose 5% In Water 1000 Ml) 1,000 mls @ 0 mls/hr IV .Q0M PRN; Protocol; Per Protocol PRN Reason: Hypoglycemia Protocol Azithromycin 500 mg/ Sodium (Chloride) 250 mls @ 250 mls/hr IVPB DAILY [facility] PRN Reason: Protocol Last Admin: 01/10/18 11:03 Dose: 250 mls/hr Ceftriaxone Sodium 1 gm/ (Sodium Chloride) 100 mls @ 100 mls/hr IVPB DAILY [facility] PRN Reason: Protocol Last Admin: 01/10/18 09:09 Dose: 100 mls/hr Insulin Glargine (Lantus) 10 unit SC HS [facility] Insulin Human Isoph/Insulin Regular (Novolin 70/30 (70/30 Units/Ml) 10 Ml) 18 units SC ACBD [facility] Insulin Human Isoph/Insulin Regular (Novolin 70/30 (70/30 Units/Ml) 10 Ml) 36 units SC ACB [facility] Insulin Human Regular (Novolin R) 0 unit SC ACHS [facility] PRN Reason: Protocol Last Admin: 01/10/18 12:35 Dose: 6 unit Losartan Potassium (Cozaar) 25 mg PO DAILY [facility] Last Admin: 01/10/18 09:07 Dose: 25 mg Meclizine HCl (Antivert) 12.5 mg PO BID [facility] Last Admin: 01/10/18 09:08 Dose: 12.5 mg Methylprednisolone (Solu-Medrol) 40 mg IVP Q12H [facility] Pantoprazole Sodium (Protonix Inj) 40 mg IVP DAILY [facility] Last Admin: 01/10/18 09:08 Dose: 40 mg Rosuvastatin Calcium (Crestor) 5 mg PO HS [facility] Last Admin: 01/09/18 21:57 Dose: 5 mg Saccharomyces Boulardii (Florastor) 250 mg PO BID [facility] Last Admin: 01/10/18 09:07 Dose: 250 mg Tiotropium [place] (Spiriva) 18 mcg INH RQ24 [facility] Last Admin: 01/10/18 07:40 Dose: 18 mcg - Labs Labs: 01/10/18 11:32 01/10/18 11:32 Attending/Attestation - Attestation I have personally seen and examined this patient.: Yes I have fully participated in the care of the patient.: Yes I have reviewed all pertinent clinical information, including history, physical exam and plan: Yes Notes (Text): This is late computer entry for 01/09/18. Patient seen, examined and case discussed with day-time resident. Patient seen this morning. Discussed with resident. Patient had urinary retention about 400mL on bladder US. Urine studies were sent to rule out urinary tract infection. Patient ordered for CT Chest w/o contrast and ABG. Patient's lung exam is improved compared to on admission; Will contine IV steroids and IV abx for pneumonia. Patient pending echocardiogram. Palliative care consult for formal POLST for the patient. Assessment/Plan 1) COPD Exacerbation Pneumonia Assessment/Plan * Monitor on telemetry * Duonebs Q4H scheduled * Spiriva 18mcg inhaled q daily * Solumedrol 40mg IV Q8H * Gentle hydration completed last night * Robotussin w codeine 5ml POq4h PRN cough Imaging: * Chest xray (01/08/18): persistent linear/bandline right apical opacity. The chest xray depiction of the nodular component of this bandlike opacity is less conspicous than suggest on CT * Chest CT (01/09/18): Chronic appearing scarring changes right lung apex associated with dystrophic type calcification which appears stable however previously noted soft tissue in the medial lung diminished in size. There is a new localized area of pleural thickening with what may represent lobular parenchymal atelectasis left lung apex. Additional scarring changes seen in the lateral aspect right upper lobe, both lung bases and middle lobe/lingular regions. Mild emphysematous changes. There are 2 small to medium-sized mediastinal lymph nodes. Cardiomegaly. Cholecystectomy. * ABG: pH 7.41; HCO3 121; CO2 37 * Ordered for Legionella urine, Mycoplasma IgM, Strep pneumoniae, influenza A is negative 2) Chest Pain Hx of Coronary Artery Disease + Stent Assessment/Plan * Cardiology consult on board Dr. Hernandez->help appreciated * YADIRA X3: negative * elevated probnp * Check echocardiogram: pending * ASA 81 mg PO QD * Crestor 5 mg PO HS * Norvasc 10 mg PO daily * Losartan 25 mg daily * Lasix 20 mg IVP daily * beta-veronique contraindicated in light of hx of COPD side effect: bronchospasm 3) Leukocytosis Assessment/Plan: * c/w monitor blood cultures * f/u urine culture * Urine culture * Chest xray (01/08/18): persistent linear/bandline right apical opacity. The chest xray depiction of the nodular component of this bandllike opacity is less conspicous than suggest on CT * Patient is now on IV steroids. * Procalcitonin low 4) History of Anemia Assessment/Plan: * Monitor H/H * hgb: 9.1 5) Constipation Assessment/Plan: * Monitor for bowel movement 5) History of Diabetes mellitus Assessment/Plan: * HgbA1C in 06/22 was 9.2 * Hemoglobin A1C: 7.4 (10/04/17) * Accuchecks QAC and HS * ISS - low dose * Hypoglycemia protocol 6) History of Hypertension Assessment/Plan: * Norvasc 10 mg PO daily * Losartan 25 mg daily * Lasix 20 mg PO daily 7) History of Anxiety Assessment/Plan: * Xanax 0.25 mg po prn anxiety 8) History of Vertigo Assessment/Plan: * Meclizine 12.5 mg PO BID 9) Acute Renal insufficiency Assessment/Plan: * elevated * monitor BUN/Cr * stage 3 10) Prophylactic measure Assessment/Plan: * SCDs * Lovenox 30 mg SC daily * Pepcid 20 mg PO daily * Heart healthy diet * Ensure x3 * PT eval and treat * Decreasing hearing at left * DNR/DNI
[2018-01-09 07:24] LABS: ALBUMIN 3.4 g/dL (3.5-5.0); ALT/SGPT < 6 U/L (9-52); AST/SGOT 23 U/L (14-36); BLOOD UREA NITROGEN 58 mg/dL (7-17); CALCIUM 8.7 mg/dl (8.6-10.4); GFR AFRICAN-AMERICAN 30; GFR NON-AFRICAN AMERICAN 25
[2018-01-09 07:33] LABS: CK-MB 1.47 ng/mL (0.0-3.38)
[2018-01-09] MEDS: Tiotropium 18 mcg Cap For Inhalation INH SCH (07:34)
[2018-01-09 08:10] LABS: LEGIONELLA AG URINE NEGATIVE (NEGATIVE)
[2018-01-09] MEDS: (Novolin R) Insulin Human Regular 100 units/ml vial SC SCH ×4 (08:18→21:46)
--- NOTE | 2018-01-09 09:27 | RAD ---
HISTORY: r/o pneumonia COMPARISON: Chest radiograph dated 01/08/2018 FINDINGS: LUNGS: Stable chronic prominence of the bilateral interstitial markings. Right upper lobe scarring. No focal consolidation. PLEURA: No significant pleural effusion identified, no pneumothorax apparent. CARDIOVASCULAR: Atherosclerotic aortic calcifications. Cardiomediastinal silhouette stably enlarged. OSSEOUS STRUCTURES: Unchanged. VISUALIZED UPPER ABDOMEN: Normal. OTHER FINDINGS: None. IMPRESSION: Stable chronic prominence of the bilateral interstitial markings. No focal consolidation or pleural effusion.
[2018-01-09] MEDS: Saccharomyces Boulardi 250 mg Cap PO SCH ×2 (10:15→17:39)
[2018-01-09] MEDS: Enoxaparin 30 mg Syringe SC SCH (10:16)
[2018-01-09 10:26] LABS: ARTERIAL BLOOD GAS HCO3 24.2 mmol/L (21-28); ARTERIAL BLOOD GAS HEMOGLOBIN 7.5 g/dL (11.7-17.4); ARTERIAL BLOOD GAS O2 SAT 97.6 % (95-98); ARTERIAL BLOOD GAS PCO2 37 mm/Hg (35-45); ARTERIAL BLOOD GAS PH 7.41 (7.35-7.45); ARTERIAL BLOOD GAS PO2 121 mm/Hg (80-100); ARTERIAL BLOOD GAS TCO2 24.6 mmol/L (22-28)
[2018-01-09] MEDS: Azithromycin 500 MG in Sodium Chloride 0.9% 250 ML IVPB SCH (11:08)
--- NOTE | 2018-01-09 11:57 | CP.PCM.CON ---
History of Present Illness - History of Present Illness History of Present Illness: Palliative consult requested by Doctor Chavira for Code status and goals of care discussion Patient is a 86 yo lady admitted from home with productive cough, fever and shortness of breath X 1 week. Patient reported she had same symptoms in the past but this time is worse. Patient's daughter had some cold last week as well. Patient stopped using her O2 at home as she complained of having no adequate tubing for it. On previous admissions CT chest was suggestive of possible neoplasm and fallow up was suggested. New CT chest pending for today. PMH: Anemia, CAD, COPD, HTN, DM Soc. Hx: , lives at home, ex smoker Fam. Hx: Mother , had asthma Review of Systems - Constitutional Constitutional: Weakness - EENT Eyes: absent: As Per HPI, Blind Spots, Blurred Vision, Change in Vision, Decreased Night Vision, Diplopia, Discharge, Dry Eye, Exophthalmos, Floaters, Irritation, Itchy Eyes, Loss of Peripheral Vision, Pain, Photophobia, Requires Corrective Lenses, Sees Flashes, Spots in Vision, Tunnel Vision, Other Visual Disturbances, Loss of Vision, Other Ears: absent: As Per HPI, Decreased Hearing, Ear Discharge, Ear Pain, Tinnitus, Abnormal Hearing, Disequilibrium, Dizziness, Other Nose/Mouth/Throat: absent: As Per HPI, Epistaxis, Nasal Congestion, Nasal Discharge, Nasal Obstruction, Nasal Trauma, Nose Pain, Post Nasal Drip, Sinus Pain, Sinus Pressure, Bleeding Gums, Change in Voice, Dental Pain, Dry Mouth, Dysphagia, Halitosis, Hoarsness, Lip Swelling, Mouth Lesions, Mouth Pain, Odynophagia, Sore Throat, Throat Swelling, Tongue Swelling, Facial Pain, Neck Pain, Neck Mass, Other - Breasts Breasts: absent: As Per HPI, Change in Shape, Mass, Pain, Nipple Discharge, Nipple Inversion, Skin Changes, Swelling, Other - Cardiovascular Cardiovascular: Dyspnea, Dyspnea on Exertion - Respiratory Respiratory: Dyspnea, Dyspnea on Exertion - Gastrointestinal Gastrointestinal: absent: As Per HPI, Abdominal Pain, Belching, Bloating, Change in Bowel Habits, Change in Stool Character, Coffee Ground Emesis, Constipation, Cramping, Diarrhea, Dyspepsia, Dysphagia, Early Satiety, Excessive Flatus, Fecal Incontinence, Heartburn, Hematemesis, Hematochezia, Loose Stools, Melena, Nausea, Odynophagia, Temesmus, Vomiting, Other - Genitourinary Genitourinary: absent: As Per HPI, Change in Urinary Stream, Difficulty Urinating, Dysuria, Flank Pain, Hematuria, Pyuria, Nocturia, Urinary Incontinence, Urinary Frequency, Urinary Hesitance, Urinary Urgency, Voiding Freq/Small Amts, Freq UTI, Hx Renal/Bladder Calculi, Hx /Renal Surgery, Bladder Distension, Other - Reproductive: Female Reproductive:Female: Post Menopausal - Menstruation Menstruation: Post Menopausal - Musculoskeletal Musculoskeletal: Muscle Weakness - Integumentary Integumentary: absent: As Per HPI, Acne, Alopecia, Bleeding Lesions, Change in Hair, Change in Nails, Change in Pigmentation, Changing Lesions, Dry Skin, Erythema, Furuncle, Hirsutism, Lesions, New Lesions, Non-Healing Lesions, Photosensitivity, Pruritus, Rash, Skin Pain, Skin Ulcer, Sores, Striae, Swelling , Unusual Bruising, Wounds, Jaundice, Other - Neurological Neurological: absent: As Per HPI, Abnormal Gait, Abnormal Hearing, Abnormal Movements, Abnormal Speech, Behavioral Changes, Burning Sensations, Confusion, Convulsions, Disequilibrium, Dizziness, Numbness, Focal Weakness, Frequent Falls , Headaches, Lack of Coordination, Loss of Vision, Memory Loss, Paresthesias, Radicular Pain, Restless Legs, Sensory Deficit, Syncope, Tingling, Tremor, Vertigo, Weakness, Other Visual Disturbances, Other - Psychiatric Psychiatric: Anxiety - Endocrine Endocrine: absent: As Per HPI, Change in Body Appearance, Change in Libido, Cold Intolorance, Deepening of Voice, Excessive Sweating, Fatigue, Flushing, Heat Intolorance, Increase in Ring/Shoe/Hat Size, Palpitations, Polydipsia, Polyphagia, Polyuria, Other - Hematologic/Lymphatic Hematologic: absent: As Per HPI, Easy Bleeding, Easy Bruising, Lymphadenopathy, Other Past Patient History - Infectious Disease Hx of Infectious Diseases: None - Tetanus Immunizations Tetanus Immunization: Unknown - Past Medical History & Family History Past Medical History?: Yes - Past Social History Smoking Status: Never Smoked - CARDIAC Hx Hypercholesterolemia: Yes Hx Hypertension: Yes - PULMONARY Hx Asthma: Yes Hx Chronic Obstructive Pulmonary Disease (COPD): Yes - NEUROLOGICAL Hx Seizures: No - HEENT Hx HEENT Problems: Yes Hx Cataracts: Yes (right eye) Hx Glaucoma: Yes (left eye) Other/Comment: [place] LEFT EAR - RENAL Hx Chronic Kidney Disease: No - HEMATOLOGICAL/ONCOLOGICAL Hx Anemia: Yes - INTEGUMENTARY Hx Dermatological Problems: No - MUSCULOSKELETAL/RHEUMATOLOGICAL Hx Arthritis: Yes (R HIP; BACK) Hx Falls: Yes Hx Fractures: Yes (left wrist AND RT. HIP) Hx Osteoporosis: Yes Hx Rheumatoid Arthritis: Yes - GASTROINTESTINAL Hx Gastritis: Yes - GENITOURINARY/GYNECOLOGICAL Hx Genitourinary Disorders: Yes Other/Comment: fibroid surgery - PSYCHIATRIC Hx Substance Use: No - SURGICAL HISTORY Hx Coronary Stent: Yes (cad cath 02/2016 with stent) - ANESTHESIA Hx Anesthesia: Yes Hx Anesthesia Reactions: No Hx Malignant Hyperthermia: No Meds Allergies/Adverse Reactions: Allergies Allergy/AdvReac Type Severity Reaction Status Date / Time No Known Allergies Allergy Verified 01/08/18 15:27 - Medications Medications: Current Medications Albuterol/Ipratropium (Duoneb 3 Mg/0.5 Mg (3 Ml) Ud) 3 ml INH RQ4 [facility] Last Admin: 01/09/18 07:34 Dose: 3 ml Alprazolam (Xanax) 0.25 mg PO DAILY PRN PRN Reason: Anxiety Last Admin: 01/08/18 22:25 Dose: 0.25 mg Aspirin (Aspirin Chewable) 81 mg PO DAILY [facility] Last Admin: 01/09/18 10:15 Dose: 81 mg Dextrose (Dextrose 50% Inj) 0 ml IV STAT PRN; Protocol PRN Reason: Hypoglycemia Protocol Dextrose (Glutose 15) 0 gm PO ONCE PRN; Protocol PRN Reason: Hypoglycemia Protocol Docusate Sodium (Colace) 100 mg PO DAILY [facility] Last Admin: 01/09/18 10:46 Dose: 100 mg Enoxaparin Sodium (Lovenox) 30 mg SC DAILY [facility] Last Admin: 01/09/18 10:16 Dose: 30 mg Furosemide (Lasix) 20 mg IVP DAILY [facility] Last Admin: 01/09/18 10:15 Dose: 20 mg Glucagon (Glucagen Diagnostic Kit) 0 mg IM STAT PRN; Protocol PRN Reason: Hypoglycemia Protocol Guaifenesin/Codeine Phosphate (Guaifenesin/Codeine) 5 ml PO Q6H PRN PRN Reason: Cough Dextrose (Dextrose 5% In Water 1000 Ml) 1,000 mls @ 0 mls/hr IV .Q0M PRN; Protocol; Per Protocol PRN Reason: Hypoglycemia Protocol Azithromycin 500 mg/ Sodium (Chloride) 250 mls @ 250 mls/hr IVPB DAILY [facility] PRN Reason: Protocol Last Admin: 01/09/18 11:08 Dose: 250 mls/hr Ceftriaxone Sodium 1 gm/ (Sodium Chloride) 100 mls @ 100 mls/hr IVPB DAILY [facility] PRN Reason: Protocol Last Admin: 01/09/18 10:02 Dose: 100 mls/hr Insulin Human Regular (Novolin R) 0 unit SC ACHS [facility] PRN Reason: Protocol Last Admin: 01/09/18 08:18 Dose: 8 unit Losartan Potassium (Cozaar) 25 mg PO DAILY [facility] Last Admin: 01/09/18 10:15 Dose: 25 mg Meclizine HCl (Antivert) 12.5 mg PO BID [facility] Last Admin: 01/09/18 10:15 Dose: 12.5 mg Methylprednisolone (Solu-Medrol) 40 mg IVP Q8H [facility] Last Admin: 01/09/18 10:14 Dose: 40 mg Pantoprazole Sodium (Protonix Inj) 40 mg IVP DAILY [facility] Last Admin: 01/09/18 10:14 Dose: 40 mg Rosuvastatin Calcium (Crestor) 5 mg PO HS [facility] Last Admin: 01/08/18 22:19 Dose: 5 mg Saccharomyces Boulardii (Florastor) 250 mg PO BID [facility] Last Admin: 01/09/18 10:15 Dose: 250 mg Tiotropium [place] (Spiriva) 18 mcg INH RQ24 [facility] Last Admin: 01/09/18 07:34 Dose: 18 mcg Physical Exam - Constitutional Appears: Chronically Ill - Head Exam Head Exam: ATRAUMATIC, NORMAL INSPECTION, NORMOCEPHALIC - Eye Exam Eye Exam: EOMI, Normal appearance, PERRL Pupil Exam: NORMAL ACCOMODATION, PERRL - ENT Exam ENT Exam: Mucous Membranes Moist, Normal Exam - Neck Exam Neck exam: Positive for: Normal Inspection - Respiratory Exam Respiratory Exam: Decreased Breath Sounds, NORMAL BREATHING PATTERN - Cardiovascular Exam Cardiovascular Exam: REGULAR RHYTHM - GI/Abdominal Exam GI & Abdominal Exam: Normal Bowel Sounds - Rectal Exam Rectal Exam: Deferred - Extremities Exam Extremities exam: Positive for: normal inspection - Back Exam Back exam: NORMAL INSPECTION - Neurological Exam Neurological exam: Alert, Oriented x3 - Psychiatric Exam Psychiatric exam: Anxious - Skin Skin Exam: Normal Color, Warm Results - Vital Signs Recent Vital Signs: Last Vital Signs Temp 97.5 F L 01/09/18 07:35 Pulse 72 01/09/18 08:37 Resp 20 01/09/18 07:35 BP 126/64 01/09/18 10:15 Pulse Ox 100 01/09/18 07:35 - Labs Result Diagrams: 01/09/18 01:00 01/09/18 06:48 Labs: Laboratory Results - last 24 hr 01/08/18 01/08/18 01/08/18 16:41 16:41 18:56 WBC 15.6 H D RBC 3.15 L Hgb 9.1 L Hct 27.2 L MCV 86.6 D MCH 29.1 MCHC 33.6 RDW 16.8 H Plt Count 239 MPV 8.4 Neut % (Auto) 84.4 H Lymph % (Auto) 5.0 L [place] % (Auto) 9.5 Eos % (Auto) 1.0 Baso % (Auto) 0.1 Neut # (Auto) 13.1 H Lymph # (Auto) 0.8 L [place] # (Auto) 1.5 H Eos # (Auto) 0.2 Baso # (Auto) 0.0 Neutrophils % (Manual) 87 H Band Neutrophils % 5 H Lymphocytes % (Manual) 6 L Monocytes % (Manual) 1 Eosinophils % (Manual) 1 Platelet Estimate Normal Poikilocytosis (manual Anisocytosis (manual) Puncture Site pCO2 pO2 HCO3 ABG pH ABG Total CO2 ABG O2 Saturation ABG Base Excess ABG Hemoglobin ABG Carboxyhemoglobin POC ABG HHb (Measured) ABG Methemoglobin [place] Test Hgb O2 Saturation Liter Flow Sodium 138 Potassium 4.3 Chloride 98 Carbon Dioxide 28 Anion Gap 15 BUN 60 H Creatinine 1.9 H Est GFR ( Amer) 30 Est GFR (Non-Af Amer) 25 POC Glucose (mg/dL) 275 H Random Glucose 185 H Hemoglobin A1c Calcium 8.2 L Phosphorus Magnesium Total Bilirubin 0.9 AST 26 ALT 23 Alkaline Phosphatase 95 Total Creatine Kinase CK-MB (Mass) Troponin I < 0.0120 NT-Pro-B Natriuret Pep 3160 H Total Protein 6.5 Albumin 3.2 L Globulin 3.3 Albumin/Globulin Ratio 1.0 Triglycerides Cholesterol LDL Cholesterol Direct HDL Cholesterol Influenza Typ A,B (EIA) Ur L.pneumophila Ag 01/08/18 01/08/18 01/09/18 20:34 22:00 00:09 WBC RBC Hgb Hct MCV MCH MCHC RDW Plt Count MPV Neut % (Auto) Lymph % (Auto) [place] % (Auto) Eos % (Auto) Baso % (Auto) Neut # (Auto) Lymph # (Auto) [place] # (Auto) Eos # (Auto) Baso # (Auto) Neutrophils % (Manual) Band Neutrophils % Lymphocytes % (Manual) Monocytes % (Manual) Eosinophils % (Manual) Platelet Estimate Poikilocytosis (manual Anisocytosis (manual) Puncture Site pCO2 pO2 HCO3 ABG pH ABG Total CO2 ABG O2 Saturation ABG Base Excess ABG Hemoglobin ABG Carboxyhemoglobin POC ABG HHb (Measured) ABG Methemoglobin [place] Test Hgb O2 Saturation Liter Flow Sodium Potassium Chloride Carbon Dioxide Anion Gap BUN Creatinine Est GFR ( Amer) Est GFR (Non-Af Amer) POC Glucose (mg/dL) 493 H* Random Glucose Hemoglobin A1c Calcium Phosphorus Magnesium Total Bilirubin AST ALT Alkaline Phosphatase Total Creatine Kinase CK-MB (Mass) Troponin I NT-Pro-B Natriuret Pep Total Protein Albumin Globulin Albumin/Globulin Ratio Triglycerides 61 D Cholesterol 81 LDL Cholesterol Direct < 30 HDL Cholesterol 28 L Influenza Typ A,B (EIA) Negative for flu a/b Ur L.pneumophila Ag 01/09/18 01/09/18 01/09/18 00:09 00:09 01:00 WBC 14.5 H RBC 3.25 L Hgb 9.3 L Hct 28.7 L MCV 88.1 MCH 28.6 MCHC 32.5 L RDW 16.8 H Plt Count 228 MPV 8.8 Neut % (Auto) 96.8 H Lymph % (Auto) 2.1 L [place] % (Auto) 1.0 Eos % (Auto) 0.0 Baso % (Auto) 0.1 Neut # (Auto) 14.1 H Lymph # (Auto) 0.3 L [place] # (Auto) 0.1 Eos # (Auto) 0.0 Baso # (Auto) 0.0 Neutrophils % (Manual) 91 H Band Neutrophils % 4 H Lymphocytes % (Manual) 4 L Monocytes % (Manual) 1 Eosinophils % (Manual) Platelet Estimate Normal Poikilocytosis (manual Slight Anisocytosis (manual) Slight Puncture Site pCO2 pO2 HCO3 ABG pH ABG Total CO2 ABG O2 Saturation ABG Base Excess ABG Hemoglobin ABG Carboxyhemoglobin POC ABG HHb (Measured) ABG Methemoglobin [place] Test Hgb O2 Saturation Liter Flow Sodium Potassium Chloride Carbon Dioxide Anion Gap BUN Creatinine Est GFR ( Amer) Est GFR (Non-Af Amer) POC Glucose (mg/dL) Random Glucose Hemoglobin A1c 7.1 H Calcium Phosphorus Magnesium Total Bilirubin AST ALT Alkaline Phosphatase Total Creatine Kinase 31 CK-MB (Mass) 1.41 Troponin I < 0.0120 NT-Pro-B Natriuret Pep Total Protein Albumin Globulin Albumin/Globulin Ratio Triglycerides Cholesterol LDL Cholesterol Direct HDL Cholesterol Influenza Typ A,B (EIA) Ur L.pneumophila Ag 01/09/18 01/09/18 01/09/18 02:07 06:15 06:48 WBC RBC Hgb Hct MCV MCH MCHC RDW Plt Count MPV Neut % (Auto) Lymph % (Auto) [place] % (Auto) Eos % (Auto) Baso % (Auto) Neut # (Auto) Lymph # (Auto) [place] # (Auto) Eos # (Auto) Baso # (Auto) Neutrophils % (Manual) Band Neutrophils % Lymphocytes % (Manual) Monocytes % (Manual) Eosinophils % (Manual) Platelet Estimate Poikilocytosis (manual Anisocytosis (manual) Puncture Site pCO2 pO2 HCO3 ABG pH ABG Total CO2 ABG O2 Saturation ABG Base Excess ABG Hemoglobin ABG Carboxyhemoglobin POC ABG HHb (Measured) ABG Methemoglobin [place] Test Hgb O2 Saturation Liter Flow Sodium Potassium Chloride Carbon Dioxide Anion Gap BUN Creatinine Est GFR ( Amer) Est GFR (Non-Af Amer) POC Glucose (mg/dL) 469 H* 305 H Random Glucose Hemoglobin A1c Calcium Phosphorus Magnesium Total Bilirubin AST ALT Alkaline Phosphatase Total Creatine Kinase CK-MB (Mass) Troponin I NT-Pro-B Natriuret Pep Total Protein Albumin Globulin Albumin/Globulin Ratio Triglycerides Cholesterol LDL Cholesterol Direct HDL Cholesterol Influenza Typ A,B (EIA) Ur L.pneumophila Ag Negative 01/09/18 01/09/18 01/09/18 06:48 10:22 11:12 WBC RBC Hgb Hct MCV MCH MCHC RDW Plt Count MPV Neut % (Auto) Lymph % (Auto) [place] % (Auto) Eos % (Auto) Baso % (Auto) Neut # (Auto) Lymph # (Auto) [place] # (Auto) Eos # (Auto) Baso # (Auto) Neutrophils % (Manual) Band Neutrophils % Lymphocytes % (Manual) Monocytes % (Manual) Eosinophils % (Manual) Platelet Estimate Poikilocytosis (manual Anisocytosis (manual) Puncture Site Lb pCO2 37 pO2 121 H HCO3 24.2 ABG pH 7.41 ABG Total CO2 24.6 ABG O2 Saturation 97.6 ABG Base Excess -1.0 ABG Hemoglobin 7.5 L ABG Carboxyhemoglobin 0.5 POC ABG HHb (Measured) 2.4 ABG Methemoglobin 1.0 [place] Test Na Hgb O2 Saturation 96.1 Liter Flow 3.0 Sodium 140 Potassium 4.4 Chloride 96 L Carbon Dioxide 30 Anion Gap 19 BUN 58 H Creatinine 1.9 H Est GFR ( Amer) 30 Est GFR (Non-Af Amer) 25 POC Glucose (mg/dL) 463 H* Random Glucose 261 H Hemoglobin A1c Calcium 8.7 Phosphorus 4.1 Magnesium 1.8 Total Bilirubin 0.2 AST 23 ALT < 6 L D Alkaline Phosphatase 107 Total Creatine Kinase 25 L CK-MB (Mass) 1.47 Troponin I < 0.0120 NT-Pro-B Natriuret Pep Total Protein 6.7 Albumin 3.4 L Globulin 3.3 Albumin/Globulin Ratio 1.0 Triglycerides Cholesterol LDL Cholesterol Direct HDL Cholesterol Influenza Typ A,B (EIA) Ur L.pneumophila Ag Assessment & Plan - Assessment and Plan (Free Text) Assessment: Palliative consult DNR/DNI, PPS 30% I reviewed medical records, all diagnostic studies, examined and interviewed patient in the bed. Translation used. Patient is alert, oriented X 3 with affect that is anxious. Patient complained of pain to Hep Lock insertion side and was given ice pack for comfort. Skin intact, worm to touch. Breathing is regular, diminished with occasional moist cough. Patient is afebrile. Abdomen soft. Tolerates diet well. Blood sugar high between 350 and 450. Insulin Sliding scale on board. Upper and lower extremities are mobile. Ambulates to bathroom with assistance. I discussed with patient her condition and asked if she knew why she came to the hospital. Patient talked about her difficulties breathing and shortness of breath. Patient feels her breathing has much improved since the admission with O2 and IV antibiotics. Patient wanted to go home. I suggested that she may have to go to [facility] before going home to complete IV Tx. She stayed quiet. Doctor Chavira has informed me that patient's family agreed with DNR/DNI. I asked patient how she felt about it and she said she did want her life to be prolonged by " breathing machine" and would like to be allowed natural if her condition becomes irreversible. I talked to patient's daughter Kira who agreed and will come today in the afternoon for goals of care discussion. 4:20 PM Patient's daughter did not commit to scheduled family meeting. POLST form completed and left for daughter to sign it if she comes later on. POLST discussed with daughter this morning and she demonstrate knowledge regarding DNR /DNI. Impression * SOB * Weakness * Uncontrolled DM * Patient and family agreed with DNR/DNI earlier in discussion with Doctor Chavira and confirmed by me in discussion with patient and her daughter, again Suggestion * O2 supplement * Assist with ADLs * Diabetic diet * Adjust Insulin sliding scale for better control of blood sugar * POLST on chart for daughter Kira to sign if comes in today. Advance care planing 45 min
--- NOTE | 2018-01-09 13:52 | CT ---
PROCEDURE: CT scan chest dated 01/09/2018 HISTORY: History of COPD r/o pneumonia/malignancy COMPARISON: Comparison made with prior CT scan chest 11/18/2017. TECHNIQUE: Contiguous helical/transaxial images were obtained through the chest without intravenous contrast enhancement. Sagittal and coronal reconstructions were performed. Radiation dose (DLP): 192.92 mGy-cm. This CT exam was performed using one or more of the following dose reduction techniques: Automated exposure control, adjustment of the mA and/or kV according to patient size, and/or use of iterative reconstruction technique. . FINDINGS: LUNGS: Right apical pleural thickening and parenchymal scarring associated with small dystrophic type calcifications which appears stable however previously noted soft tissue in the medial lung apex a diminished in size. . Irregular of focal area of pleural thickening and/or parenchymal atelectasis/ scar in the left posterolateral lung apex, the inferior lobular component of which is new since prior study. There is also mild atelectasis and or scarring changes seen in the lateral aspect right upper lobe extending to the pleural surface. Scarring changes also present within the right lung base, middle lobe as well as anterior aspect left upper lobe, lingular region and left lung base. Mild centrilobular emphysematous changes. MEDIASTINUM: Heart appears mildly enlarged. . No significant pericardial effusion. The ascending thoracic aorta measures approximately 3.4 cm and descending thoracic aorta measures approximately 2.6 cm. Three-vessel arch. Pulmonary trunk measures approximately 3.1 cm. There is a 10 mm right parasagittal pretracheal-precarinal junction lymph node. There is a 2nd left parasagittal precarinal/ sub carinal junction lymph node measuring approximately 13.4 mm. Evaluation for hilar adenopathy is limited due to the lack of circulating intravenous contrast material. There are a few small nonspecific bilateral axillary lymph nodes. Small hiatal hernia. PLEURA: No pleural fluid. No pneumothorax. BONES: Mild multilevel by concave/fish-mouth endplate deformities thoracic spine again noted. There are no acute compression fractures no are retropulsed fragments. Mild diffuse demineralization. . There is a chronic appearing superior endplate compression deformities at L1 segment. Mild multilevel degenerative spondylosis. UPPER ABDOMEN: Cholecystectomy. Note again made of cystic changes upper pole left kidney 1 of which is associate with a tiny calcific density. OTHER FINDINGS: None. IMPRESSION: Chronic appearing scarring changes right lung apex associated with dystrophic type calcification which appears stable however previously noted soft tissue in the medial lung diminished in size. There is a new localized area of pleural thickening with what may represent lobular parenchymal atelectasis left lung apex. . Additional scarring changes seen in the lateral aspect right upper lobe, both lung bases and middle lobe/lingular regions. . Mild emphysematous changes. There are 2 small to medium-sized mediastinal lymph nodes. Cardiomegaly. Cholecystectomy.
[2018-01-09 14:08] LABS: GRANULAR CAST 1 /lpf (0-1); SQUAMOUS EPITHIAL 3 /hpf (0-5); URINE BACTERIA RARE (<OCC); URINE BILIRUBIN NEGATIVE (NEGATIVE); URINE BLOOD NEGATIVE (NEGATIVE); URINE CLARITY Hazy (Clear); URINE COLOR Yellow (YELLOW); URINE HYALINE CAST 0-2 /lpf (0-2); URINE LEUKOCYTE ESTERASE NEG Leu/uL (Negative); URINE PROTEIN NEGATIVE (NEGATIVE); URINE UROBILINOGEN NORMAL mg/dL (0.2-1.0)
[2018-01-09 14:25] LABS: PH,URINE 5.5 (5.0-8.0); URINE GLUCOSE (UA) 250 mg/dL (Normal)
--- NOTE | 2018-01-09 17:36 | CP.PCM.CON ---
History of Present Illness - History of Present Illness History of Present Illness: Reason for Consult: COPD Exacerbation + Asthma History obtained using "[employer]" Translation [employer]; Technical Operator: Rita Bello Technical Operator ID: [id number]. Patient is a 86 year old female with a past medical history of COPD, asthma, CAD, HTN, HLD and type 2 diabetes, who presented to the ER yesterday (01/08/18) with chief complaint of chest pain and shortness of breath. Patient was hospitalized back in November for COPD exacerbation. Patient states she stopped using her home oxygen since her last hospitalization, as she was missing the nasal tubing. Patient seen and examined at bedside. Patient is comfortable and not evidently short of breath. Patient is still complaining of chest pain, as well as a dry cough which she states is chronic, non-productive and unchanged. Patient states chest pain is worse when walking and talking at the same time. Patient also complains of subjective chills but is currently afebrile. Assessment/Plan 1. COPD Exacerbation vs. Pneumonia Patient has history of hospitalization due to COPD exacerbation, with most recent hospital stay 11/21. Patient currently afebrile and complaining of dry cough, which she states she has had for a long time and has not changed. CXR done on admission and at bedside not showing evidence of pneumonia; ABG shows mild oxygen retention, but pH normal at 7.41. Patient had not been using home oxygen and was not on steroids; Continue Solu- medrol 40 mg IVP Q8H as ordered by primary team. Repeat Chest CT ordered by primary team; Will follow-up to ensure no infiltrate/ pulmonary source of infection. 2. Chest Pain Not likely pleuritic; Patient has history of CAD treated with stenting. Last echocardiogram 01/22/2018 showed EF of 52%. Follow-up with Cardiology recommendations. 3. Leukocytosis Leukocytosis since admission with most recent WBC = 14.5 with 91% neutrophils and 4+ bandemia. Influenza A/B and urine L. pneumophilia negative; M. pneumonia IgM pending. Patient afebrile; not likely secondary to pneumonia. 4. Linear band on CXR Seen on previous CT scan from November. Possibly scar tissue, but malignancy cannot be ruled out. Patient was due for follow-up surveillance CT next month, but ordered by Medicine team today - will follow-up, chest CT. Past Patient History - Infectious Disease Hx of Infectious Diseases: None - Tetanus Immunizations Tetanus Immunization: Unknown - Past Medical History & Family History Past Medical History?: Yes - Past Social History Smoking Status: Never Smoked - CARDIAC Hx Hypercholesterolemia: Yes Hx Hypertension: Yes - PULMONARY Hx Asthma: Yes Hx Chronic Obstructive Pulmonary Disease (COPD): Yes - NEUROLOGICAL Hx Seizures: No - HEENT Hx HEENT Problems: Yes Hx Cataracts: Yes (right eye) Hx Glaucoma: Yes (left eye) Other/Comment: S[place] LEFT EAR - RENAL Hx Chronic Kidney Disease: No - HEMATOLOGICAL/ONCOLOGICAL Hx Anemia: Yes - INTEGUMENTARY Hx Dermatological Problems: No - MUSCULOSKELETAL/RHEUMATOLOGICAL Hx Arthritis: Yes (R HIP; BACK) Hx Falls: Yes Hx Fractures: Yes (left wrist AND RT. HIP) Hx Osteoporosis: Yes Hx Rheumatoid Arthritis: Yes - GASTROINTESTINAL Hx Gastritis: Yes - GENITOURINARY/GYNECOLOGICAL Hx Genitourinary Disorders: Yes Other/Comment: fibroid surgery - PSYCHIATRIC Hx Substance Use: No - SURGICAL HISTORY Hx Coronary Stent: Yes (cad cath 02/2016 with stent) - ANESTHESIA Hx Anesthesia: Yes Hx Anesthesia Reactions: No Hx Malignant Hyperthermia: No Meds Allergies/Adverse Reactions: Allergies Allergy/AdvReac Type Severity Reaction Status Date / Time No Known Allergies Allergy Verified 01/08/18 15:27 - Medications Medications: Current Medications Albuterol/Ipratropium (Duoneb 3 Mg/0.5 Mg (3 Ml) Ud) 3 ml INH RQ4 [facility] Last Admin: 01/09/18 16:20 Dose: 3 ml Alprazolam (Xanax) 0.25 mg PO DAILY PRN PRN Reason: Anxiety Last Admin: 01/08/18 22:25 Dose: 0.25 mg Aspirin (Aspirin Chewable) 81 mg PO DAILY [facility] Last Admin: 01/09/18 10:15 Dose: 81 mg Dextrose (Dextrose 50% Inj) 0 ml IV STAT PRN; Protocol PRN Reason: Hypoglycemia Protocol Dextrose (Glutose 15) 0 gm PO ONCE PRN; Protocol PRN Reason: Hypoglycemia Protocol Docusate Sodium (Colace) 100 mg PO DAILY [facility] Last Admin: 01/09/18 10:46 Dose: 100 mg Enoxaparin Sodium (Lovenox) 30 mg SC DAILY [facility] Last Admin: 01/09/18 10:16 Dose: 30 mg Furosemide (Lasix) 20 mg IVP DAILY [facility] Last Admin: 01/09/18 10:15 Dose: 20 mg Glucagon (Glucagen Diagnostic Kit) 0 mg IM STAT PRN; Protocol PRN Reason: Hypoglycemia Protocol Guaifenesin/Codeine Phosphate (Guaifenesin/Codeine) 5 ml PO Q6H PRN PRN Reason: Cough Dextrose (Dextrose 5% In Water 1000 Ml) 1,000 mls @ 0 mls/hr IV .Q0M PRN; Protocol; Per Protocol PRN Reason: Hypoglycemia Protocol Azithromycin 500 mg/ Sodium (Chloride) 250 mls @ 250 mls/hr IVPB DAILY [facility] PRN Reason: Protocol Last Admin: 01/09/18 11:08 Dose: 250 mls/hr Ceftriaxone Sodium 1 gm/ (Sodium Chloride) 100 mls @ 100 mls/hr IVPB DAILY [facility] PRN Reason: Protocol Last Admin: 01/09/18 10:02 Dose: 100 mls/hr Insulin Glargine (Lantus) 12 unit SC HS [facility] Insulin Human Regular (Novolin R) 0 unit SC ACHS [facility] PRN Reason: Protocol Last Admin: 01/09/18 12:33 Dose: 12 unit Losartan Potassium (Cozaar) 25 mg PO DAILY [facility] Last Admin: 01/09/18 10:15 Dose: 25 mg Meclizine HCl (Antivert) 12.5 mg PO BID [facility] Last Admin: 01/09/18 10:15 Dose: 12.5 mg Methylprednisolone (Solu-Medrol) 40 mg IVP Q8H [facility] Last Admin: 01/09/18 10:14 Dose: 40 mg Pantoprazole Sodium (Protonix Inj) 40 mg IVP DAILY [facility] Last Admin: 01/09/18 10:14 Dose: 40 mg Rosuvastatin Calcium (Crestor) 5 mg PO HS [facility] Last Admin: 01/08/18 22:19 Dose: 5 mg Saccharomyces Boulardii (Florastor) 250 mg PO BID [facility] Last Admin: 01/09/18 10:15 Dose: 250 mg Tiotropium [place] (Spiriva) 18 mcg INH RQ24 [facility] Last Admin: 01/09/18 07:34 Dose: 18 mcg Results - Vital Signs Recent Vital Signs: Last Vital Signs Temp 98.0 F 01/09/18 16:00 Pulse 78 01/09/18 16:00 Resp 20 01/09/18 16:00 BP 148/85 01/09/18 16:00 Pulse Ox 96 01/09/18 16:00 - Labs Result Diagrams: 01/09/18 01:00 01/09/18 06:48 Labs: Laboratory Results - last 24 hr 01/08/18 01/08/18 01/08/18 16:41 18:56 20:34 WBC RBC Hgb Hct MCV MCH MCHC RDW Plt Count MPV Neut % (Auto) Lymph % (Auto) [place] % (Auto) Eos % (Auto) Baso % (Auto) Neut # (Auto) Lymph # (Auto) [place] # (Auto) Eos # (Auto) Baso # (Auto) Neutrophils % (Manual) 87 H Band Neutrophils % 5 H Lymphocytes % (Manual) 6 L Monocytes % (Manual) 1 Eosinophils % (Manual) 1 Platelet Estimate Normal Poikilocytosis (manual Anisocytosis (manual) Puncture Site pCO2 pO2 HCO3 ABG pH ABG Total CO2 ABG O2 Saturation ABG Base Excess ABG Hemoglobin ABG Carboxyhemoglobin POC ABG HHb (Measured) ABG Methemoglobin [place] Test Hgb O2 Saturation Liter Flow Sodium Potassium Chloride Carbon Dioxide Anion Gap BUN Creatinine Est GFR ( Amer) Est GFR (Non-Af Amer) POC Glucose (mg/dL) 275 H Random Glucose Hemoglobin A1c Calcium Phosphorus Magnesium Total Bilirubin AST ALT Alkaline Phosphatase Total Creatine Kinase CK-MB (Mass) Troponin I Total Protein Albumin Globulin Albumin/Globulin Ratio Triglycerides Cholesterol LDL Cholesterol Direct HDL Cholesterol Urine Color Urine Clarity Urine pH Ur Specific [place] Urine Protein Urine Glucose (UA) Urine Ketones Urine Blood Urine Nitrate Urine Bilirubin Urine Urobilinogen Ur Leukocyte Esterase Urine WBC (Auto) Urine RBC (Auto) Ur Squamous Epith Cells Urine Bacteria Hyaline Casts Granular Casts (Auto) Influenza Typ A,B (EIA) Negative for flu a/b Ur L.pneumophila Ag 01/08/18 01/09/18 01/09/18 22:00 00:09 00:09 WBC RBC Hgb Hct MCV MCH MCHC RDW Plt Count MPV Neut % (Auto) Lymph % (Auto) [place] % (Auto) Eos % (Auto) Baso % (Auto) Neut # (Auto) Lymph # (Auto) [place] # (Auto) Eos # (Auto) Baso # (Auto) Neutrophils % (Manual) Band Neutrophils % Lymphocytes % (Manual) Monocytes % (Manual) Eosinophils % (Manual) Platelet Estimate Poikilocytosis (manual Anisocytosis (manual) Puncture Site pCO2 pO2 HCO3 ABG pH ABG Total CO2 ABG O2 Saturation ABG Base Excess ABG Hemoglobin ABG Carboxyhemoglobin POC ABG HHb (Measured) ABG Methemoglobin [place] Test Hgb O2 Saturation Liter Flow Sodium Potassium Chloride Carbon Dioxide Anion Gap BUN Creatinine Est GFR ( Amer) Est GFR (Non-Af Amer) POC Glucose (mg/dL) 493 H* Random Glucose Hemoglobin A1c 7.1 H Calcium Phosphorus Magnesium Total Bilirubin AST ALT Alkaline Phosphatase Total Creatine Kinase CK-MB (Mass) Troponin I Total Protein Albumin Globulin Albumin/Globulin Ratio Triglycerides 61 D Cholesterol 81 LDL Cholesterol Direct < 30 HDL Cholesterol 28 L Urine Color Urine Clarity Urine pH Ur Specific [place] Urine Protein Urine Glucose (UA) Urine Ketones Urine Blood Urine Nitrate Urine Bilirubin Urine Urobilinogen Ur Leukocyte Esterase Urine WBC (Auto) Urine RBC (Auto) Ur Squamous Epith Cells Urine Bacteria Hyaline Casts Granular Casts (Auto) Influenza Typ A,B (EIA) Ur L.pneumophila Ag 01/09/18 01/09/18 01/09/18 00:09 01:00 02:07 WBC 14.5 H RBC 3.25 L Hgb 9.3 L Hct 28.7 L MCV 88.1 MCH 28.6 MCHC 32.5 L RDW 16.8 H Plt Count 228 MPV 8.8 Neut % (Auto) 96.8 H Lymph % (Auto) 2.1 L [place] % (Auto) 1.0 Eos % (Auto) 0.0 Baso % (Auto) 0.1 Neut # (Auto) 14.1 H Lymph # (Auto) 0.3 L [place] # (Auto) 0.1 Eos # (Auto) 0.0 Baso # (Auto) 0.0 Neutrophils % (Manual) 91 H Band Neutrophils % 4 H Lymphocytes % (Manual) 4 L Monocytes % (Manual) 1 Eosinophils % (Manual) Platelet Estimate Normal Poikilocytosis (manual Slight Anisocytosis (manual) Slight Puncture Site pCO2 pO2 HCO3 ABG pH ABG Total CO2 ABG O2 Saturation ABG Base Excess ABG Hemoglobin ABG Carboxyhemoglobin POC ABG HHb (Measured) ABG Methemoglobin [place] Test Hgb O2 Saturation Liter Flow Sodium Potassium Chloride Carbon Dioxide Anion Gap BUN Creatinine Est GFR ( Amer) Est GFR (Non-Af Amer) POC Glucose (mg/dL) 469 H* Random Glucose Hemoglobin A1c Calcium Phosphorus Magnesium Total Bilirubin AST ALT Alkaline Phosphatase Total Creatine Kinase 31 CK-MB (Mass) 1.41 Troponin I < 0.0120 Total Protein Albumin Globulin Albumin/Globulin Ratio Triglycerides Cholesterol LDL Cholesterol Direct HDL Cholesterol Urine Color Urine Clarity Urine pH Ur Specific [place] Urine Protein Urine Glucose (UA) Urine Ketones Urine Blood Urine Nitrate Urine Bilirubin Urine Urobilinogen Ur Leukocyte Esterase Urine WBC (Auto) Urine RBC (Auto) Ur Squamous Epith Cells Urine Bacteria Hyaline Casts Granular Casts (Auto) Influenza Typ A,B (EIA) Ur L.pneumophila Ag 01/09/18 01/09/18 01/09/18 06:15 06:48 06:48 WBC RBC Hgb Hct MCV MCH MCHC RDW Plt Count MPV Neut % (Auto) Lymph % (Auto) [place] % (Auto) Eos % (Auto) Baso % (Auto) Neut # (Auto) Lymph # (Auto) [place] # (Auto) Eos # (Auto) Baso # (Auto) Neutrophils % (Manual) Band Neutrophils % Lymphocytes % (Manual) Monocytes % (Manual) Eosinophils % (Manual) Platelet Estimate Poikilocytosis (manual Anisocytosis (manual) Puncture Site pCO2 pO2 HCO3 ABG pH ABG Total CO2 ABG O2 Saturation ABG Base Excess ABG Hemoglobin ABG Carboxyhemoglobin POC ABG HHb (Measured) ABG Methemoglobin [place] Test Hgb O2 Saturation Liter Flow Sodium 140 Potassium 4.4 Chloride 96 L Carbon Dioxide 30 Anion Gap 19 BUN 58 H Creatinine 1.9 H Est GFR ( Amer) 30 Est GFR (Non-Af Amer) 25 POC Glucose (mg/dL) 305 H Random Glucose 261 H Hemoglobin A1c Calcium 8.7 Phosphorus 4.1 Magnesium 1.8 Total Bilirubin 0.2 AST 23 ALT < 6 L D Alkaline Phosphatase 107 Total Creatine Kinase 25 L CK-MB (Mass) 1.47 Troponin I < 0.0120 Total Protein 6.7 Albumin 3.4 L Globulin 3.3 Albumin/Globulin Ratio 1.0 Triglycerides Cholesterol LDL Cholesterol Direct HDL Cholesterol Urine Color Urine Clarity Urine pH Ur Specific [place] Urine Protein Urine Glucose (UA) Urine Ketones Urine Blood Urine Nitrate Urine Bilirubin Urine Urobilinogen Ur Leukocyte Esterase Urine WBC (Auto) Urine RBC (Auto) Ur Squamous Epith Cells Urine Bacteria Hyaline Casts Granular Casts (Auto) Influenza Typ A,B (EIA) Ur L.pneumophila Ag Negative 01/09/18 01/09/18 01/09/18 10:22 11:12 13:56 WBC RBC Hgb Hct MCV MCH MCHC RDW Plt Count MPV Neut % (Auto) Lymph % (Auto) [place] % (Auto) Eos % (Auto) Baso % (Auto) Neut # (Auto) Lymph # (Auto) [place] # (Auto) Eos # (Auto) Baso # (Auto) Neutrophils % (Manual) Band Neutrophils % Lymphocytes % (Manual) Monocytes % (Manual) Eosinophils % (Manual) Platelet Estimate Poikilocytosis (manual Anisocytosis (manual) Puncture Site Lb pCO2 37 pO2 121 H HCO3 24.2 ABG pH 7.41 ABG Total CO2 24.6 ABG O2 Saturation 97.6 ABG Base Excess -1.0 ABG Hemoglobin 7.5 L ABG Carboxyhemoglobin 0.5 POC ABG HHb (Measured) 2.4 ABG Methemoglobin 1.0 [place] Test Na Hgb O2 Saturation 96.1 Liter Flow 3.0 Sodium Potassium Chloride Carbon Dioxide Anion Gap BUN Creatinine Est GFR ( Amer) Est GFR (Non-Af Amer) POC Glucose (mg/dL) 463 H* Random Glucose Hemoglobin A1c Calcium Phosphorus Magnesium Total Bilirubin AST ALT Alkaline Phosphatase Total Creatine Kinase CK-MB (Mass) Troponin I Total Protein Albumin Globulin Albumin/Globulin Ratio Triglycerides Cholesterol LDL Cholesterol Direct HDL Cholesterol Urine Color Yellow Urine Clarity Hazy Urine pH 5.5 Ur Specific [place] 1.007 Urine Protein Negative Urine Glucose (UA) 250 Urine Ketones Negative Urine Blood Negative Urine Nitrate Negative Urine Bilirubin Negative Urine Urobilinogen Normal Ur Leukocyte Esterase Neg Urine WBC (Auto) 1 Urine RBC (Auto) 1 Ur Squamous Epith Cells 3 Urine Bacteria Rare Hyaline Casts 0-2 Granular Casts (Auto) 1 Influenza Typ A,B (EIA) Ur L.pneumophila Ag 01/09/18 16:55 WBC RBC Hgb Hct MCV MCH MCHC RDW Plt Count MPV Neut % (Auto) Lymph % (Auto) [place] % (Auto) Eos % (Auto) Baso % (Auto) Neut # (Auto) Lymph # (Auto) [place] # (Auto) Eos # (Auto) Baso # (Auto) Neutrophils % (Manual) Band Neutrophils % Lymphocytes % (Manual) Monocytes % (Manual) Eosinophils % (Manual) Platelet Estimate Poikilocytosis (manual Anisocytosis (manual) Puncture Site pCO2 pO2 HCO3 ABG pH ABG Total CO2 ABG O2 Saturation ABG Base Excess ABG Hemoglobin ABG Carboxyhemoglobin POC ABG HHb (Measured) ABG Methemoglobin [place] Test Hgb O2 Saturation Liter Flow Sodium Potassium Chloride Carbon Dioxide Anion Gap BUN Creatinine Est GFR ( Amer) Est GFR (Non-Af Amer) POC Glucose (mg/dL) 366 H Random Glucose Hemoglobin A1c Calcium Phosphorus Magnesium Total Bilirubin AST ALT Alkaline Phosphatase Total Creatine Kinase CK-MB (Mass) Troponin I Total Protein Albumin Globulin Albumin/Globulin Ratio Triglycerides Cholesterol LDL Cholesterol Direct HDL Cholesterol Urine Color Urine Clarity Urine pH Ur Specific [place] Urine Protein Urine Glucose (UA) Urine Ketones Urine Blood Urine Nitrate Urine Bilirubin Urine Urobilinogen Ur Leukocyte Esterase Urine WBC (Auto) Urine RBC (Auto) Ur Squamous Epith Cells Urine Bacteria Hyaline Casts Granular Casts (Auto) Influenza Typ A,B (EIA) Ur L.pneumophila Ag
[2018-01-09] MEDS ORDERED: (Lantus) Insulin Glargine, Recombinant SC SCH ×2 (22:00)
--- NOTE | 2018-01-09 23:24 | CP.PCM.CON ---
History of Present Illness - History of Present Illness History of Present Illness: Patient seen and evaluated Comfortable Past Patient History - Infectious Disease Hx of Infectious Diseases: None - Tetanus Immunizations Tetanus Immunization: Unknown - Past Medical History & Family History Past Medical History?: Yes - Past Social History Smoking Status: Never Smoked - CARDIAC Hx Hypercholesterolemia: Yes Hx Hypertension: Yes - PULMONARY Hx Asthma: Yes Hx Chronic Obstructive Pulmonary Disease (COPD): Yes - NEUROLOGICAL Hx Seizures: No - HEENT Hx HEENT Problems: Yes Hx Cataracts: Yes (right eye) Hx Glaucoma: Yes (left eye) Other/Comment: MARSHALL LEFT EAR - RENAL Hx Chronic Kidney Disease: No - HEMATOLOGICAL/ONCOLOGICAL Hx Anemia: Yes - INTEGUMENTARY Hx Dermatological Problems: No - MUSCULOSKELETAL/RHEUMATOLOGICAL Hx Arthritis: Yes (R HIP; BACK) Hx Falls: Yes Hx Fractures: Yes (left wrist AND RT. HIP) Hx Osteoporosis: Yes Hx Rheumatoid Arthritis: Yes - GASTROINTESTINAL Hx Gastritis: Yes - GENITOURINARY/GYNECOLOGICAL Hx Genitourinary Disorders: Yes Other/Comment: fibroid surgery - PSYCHIATRIC Hx Substance Use: No - SURGICAL HISTORY Hx Coronary Stent: Yes (cad cath 02/2016 with stent) - ANESTHESIA Hx Anesthesia: Yes Hx Anesthesia Reactions: No Hx Malignant Hyperthermia: No Meds Allergies/Adverse Reactions: Allergies Allergy/AdvReac Type Severity Reaction Status Date / Time No Known Allergies Allergy Verified 01/08/18 15:27 - Medications Medications: Current Medications Albuterol/Ipratropium (Duoneb 3 Mg/0.5 Mg (3 Ml) Ud) 3 ml INH RQ4 [facility] Last Admin: 01/09/18 19:30 Dose: 3 ml Alprazolam (Xanax) 0.25 mg PO DAILY PRN PRN Reason: Anxiety Last Admin: 01/08/18 22:25 Dose: 0.25 mg Aspirin (Aspirin Chewable) 81 mg PO DAILY [facility] Last Admin: 01/09/18 10:15 Dose: 81 mg Dextrose (Dextrose 50% Inj) 0 ml IV STAT PRN; Protocol PRN Reason: Hypoglycemia Protocol Dextrose (Glutose 15) 0 gm PO ONCE PRN; Protocol PRN Reason: Hypoglycemia Protocol Docusate Sodium (Colace) 100 mg PO DAILY [facility] Last Admin: 01/09/18 10:46 Dose: 100 mg Enoxaparin Sodium (Lovenox) 30 mg SC DAILY [facility] Last Admin: 01/09/18 10:16 Dose: 30 mg Furosemide (Lasix) 20 mg IVP DAILY [facility] Last Admin: 01/09/18 10:15 Dose: 20 mg Glucagon (Glucagen Diagnostic Kit) 0 mg IM STAT PRN; Protocol PRN Reason: Hypoglycemia Protocol Guaifenesin/Codeine Phosphate (Guaifenesin/Codeine) 5 ml PO Q6H PRN PRN Reason: Cough Dextrose (Dextrose 5% In Water 1000 Ml) 1,000 mls @ 0 mls/hr IV .Q0M PRN; Protocol; Per Protocol PRN Reason: Hypoglycemia Protocol Azithromycin 500 mg/ Sodium (Chloride) 250 mls @ 250 mls/hr IVPB DAILY [facility] PRN Reason: Protocol Last Admin: 01/09/18 11:08 Dose: 250 mls/hr Ceftriaxone Sodium 1 gm/ (Sodium Chloride) 100 mls @ 100 mls/hr IVPB DAILY [facility] PRN Reason: Protocol Last Admin: 01/09/18 10:02 Dose: 100 mls/hr Insulin Glargine (Lantus) 12 unit SC HS [facility] Last Admin: 01/09/18 21:47 Dose: 12 units Insulin Human Regular (Novolin R) 0 unit SC ACHS [facility] PRN Reason: Protocol Last Admin: 01/09/18 21:46 Dose: 4 unit Losartan Potassium (Cozaar) 25 mg PO DAILY [facility] Last Admin: 01/09/18 10:15 Dose: 25 mg Meclizine HCl (Antivert) 12.5 mg PO BID [facility] Last Admin: 01/09/18 17:39 Dose: 12.5 mg Methylprednisolone (Solu-Medrol) 40 mg IVP Q8H [facility] Last Admin: 01/09/18 17:39 Dose: 40 mg Pantoprazole Sodium (Protonix Inj) 40 mg IVP DAILY [facility] Last Admin: 01/09/18 10:14 Dose: 40 mg Rosuvastatin Calcium (Crestor) 5 mg PO HS [facility] Last Admin: 01/09/18 21:57 Dose: 5 mg Saccharomyces Boulardii (Florastor) 250 mg PO BID [facility] Last Admin: 01/09/18 17:39 Dose: 250 mg Tiotropium [place] (Spiriva) 18 mcg INH RQ24 [facility] Last Admin: 01/09/18 07:34 Dose: 18 mcg Results - Vital Signs Recent Vital Signs: Last Vital Signs Temp 98.0 F 01/09/18 16:00 Pulse 78 01/09/18 16:00 Resp 20 01/09/18 16:00 BP 148/85 01/09/18 16:00 Pulse Ox 96 01/09/18 16:00 - Labs Result Diagrams: 01/09/18 01:00 01/09/18 06:48 Labs: Laboratory Results - last 24 hr 01/09/18 01/09/18 01/09/18 00:09 00:09 00:09 WBC RBC Hgb Hct MCV MCH MCHC RDW Plt Count MPV Neut % (Auto) Lymph % (Auto) [place] % (Auto) Eos % (Auto) Baso % (Auto) Neut # (Auto) Lymph # (Auto) [place] # (Auto) Eos # (Auto) Baso # (Auto) Neutrophils % (Manual) Band Neutrophils % Lymphocytes % (Manual) Monocytes % (Manual) Platelet Estimate Poikilocytosis (manual Anisocytosis (manual) Puncture Site pCO2 pO2 HCO3 ABG pH ABG Total CO2 ABG O2 Saturation ABG Base Excess ABG Hemoglobin ABG Carboxyhemoglobin POC ABG HHb (Measured) ABG Methemoglobin [place] Test Hgb O2 Saturation Liter Flow Sodium Potassium Chloride Carbon Dioxide Anion Gap BUN Creatinine Est GFR ( Amer) Est GFR (Non-Af Amer) POC Glucose (mg/dL) Random Glucose Hemoglobin A1c 7.1 H Calcium Phosphorus Magnesium Total Bilirubin AST ALT Alkaline Phosphatase Total Creatine Kinase 31 CK-MB (Mass) 1.41 Troponin I < 0.0120 Total Protein Albumin Globulin Albumin/Globulin Ratio Triglycerides 61 D Cholesterol 81 LDL Cholesterol Direct < 30 HDL Cholesterol 28 L Urine Color Urine Clarity Urine pH Ur Specific [place] Urine Protein Urine Glucose (UA) Urine Ketones Urine Blood Urine Nitrate Urine Bilirubin Urine Urobilinogen Ur Leukocyte Esterase Urine WBC (Auto) Urine RBC (Auto) Ur Squamous Epith Cells Urine Bacteria Hyaline Casts Granular Casts (Auto) Ur L.pneumophila Ag 01/09/18 01/09/18 01/09/18 01:00 02:07 06:15 WBC 14.5 H RBC 3.25 L Hgb 9.3 L Hct 28.7 L MCV 88.1 MCH 28.6 MCHC 32.5 L RDW 16.8 H Plt Count 228 MPV 8.8 Neut % (Auto) 96.8 H Lymph % (Auto) 2.1 L [place] % (Auto) 1.0 Eos % (Auto) 0.0 Baso % (Auto) 0.1 Neut # (Auto) 14.1 H Lymph # (Auto) 0.3 L [place] # (Auto) 0.1 Eos # (Auto) 0.0 Baso # (Auto) 0.0 Neutrophils % (Manual) 91 H Band Neutrophils % 4 H Lymphocytes % (Manual) 4 L Monocytes % (Manual) 1 Platelet Estimate Normal Poikilocytosis (manual Slight Anisocytosis (manual) Slight Puncture Site pCO2 pO2 HCO3 ABG pH ABG Total CO2 ABG O2 Saturation ABG Base Excess ABG Hemoglobin ABG Carboxyhemoglobin POC ABG HHb (Measured) ABG Methemoglobin [place] Test Hgb O2 Saturation Liter Flow Sodium Potassium Chloride Carbon Dioxide Anion Gap BUN Creatinine Est GFR ( Amer) Est GFR (Non-Af Amer) POC Glucose (mg/dL) 469 H* 305 H Random Glucose Hemoglobin A1c Calcium Phosphorus Magnesium Total Bilirubin AST ALT Alkaline Phosphatase Total Creatine Kinase CK-MB (Mass) Troponin I Total Protein Albumin Globulin Albumin/Globulin Ratio Triglycerides Cholesterol LDL Cholesterol Direct HDL Cholesterol Urine Color Urine Clarity Urine pH Ur Specific [place] Urine Protein Urine Glucose (UA) Urine Ketones Urine Blood Urine Nitrate Urine Bilirubin Urine Urobilinogen Ur Leukocyte Esterase Urine WBC (Auto) Urine RBC (Auto) Ur Squamous Epith Cells Urine Bacteria Hyaline Casts Granular Casts (Auto) Ur L.pneumophila Ag 01/09/18 01/09/18 01/09/18 06:48 06:48 10:22 WBC RBC Hgb Hct MCV MCH MCHC RDW Plt Count MPV Neut % (Auto) Lymph % (Auto) [place] % (Auto) Eos % (Auto) Baso % (Auto) Neut # (Auto) Lymph # (Auto) [place] # (Auto) Eos # (Auto) Baso # (Auto) Neutrophils % (Manual) Band Neutrophils % Lymphocytes % (Manual) Monocytes % (Manual) Platelet Estimate Poikilocytosis (manual Anisocytosis (manual) Puncture Site Lb pCO2 37 pO2 121 H HCO3 24.2 ABG pH 7.41 ABG Total CO2 24.6 ABG O2 Saturation 97.6 ABG Base Excess -1.0 ABG Hemoglobin 7.5 L ABG Carboxyhemoglobin 0.5 POC ABG HHb (Measured) 2.4 ABG Methemoglobin 1.0 [place] Test Na Hgb O2 Saturation 96.1 Liter Flow 3.0 Sodium 140 Potassium 4.4 Chloride 96 L Carbon Dioxide 30 Anion Gap 19 BUN 58 H Creatinine 1.9 H Est GFR ( Amer) 30 Est GFR (Non-Af Amer) 25 POC Glucose (mg/dL) Random Glucose 261 H Hemoglobin A1c Calcium 8.7 Phosphorus 4.1 Magnesium 1.8 Total Bilirubin 0.2 AST 23 ALT < 6 L D Alkaline Phosphatase 107 Total Creatine Kinase 25 L CK-MB (Mass) 1.47 Troponin I < 0.0120 Total Protein 6.7 Albumin 3.4 L Globulin 3.3 Albumin/Globulin Ratio 1.0 Triglycerides Cholesterol LDL Cholesterol Direct HDL Cholesterol Urine Color Urine Clarity Urine pH Ur Specific [place] Urine Protein Urine Glucose (UA) Urine Ketones Urine Blood Urine Nitrate Urine Bilirubin Urine Urobilinogen Ur Leukocyte Esterase Urine WBC (Auto) Urine RBC (Auto) Ur Squamous Epith Cells Urine Bacteria Hyaline Casts Granular Casts (Auto) Ur L.pneumophila Ag Negative 01/09/18 01/09/18 01/09/18 11:12 13:56 16:55 WBC RBC Hgb Hct MCV MCH MCHC RDW Plt Count MPV Neut % (Auto) Lymph % (Auto) [place] % (Auto) Eos % (Auto) Baso % (Auto) Neut # (Auto) Lymph # (Auto) [place] # (Auto) Eos # (Auto) Baso # (Auto) Neutrophils % (Manual) Band Neutrophils % Lymphocytes % (Manual) Monocytes % (Manual) Platelet Estimate Poikilocytosis (manual Anisocytosis (manual) Puncture Site pCO2 pO2 HCO3 ABG pH ABG Total CO2 ABG O2 Saturation ABG Base Excess ABG Hemoglobin ABG Carboxyhemoglobin POC ABG HHb (Measured) ABG Methemoglobin [place] Test Hgb O2 Saturation Liter Flow Sodium Potassium Chloride Carbon Dioxide Anion Gap BUN Creatinine Est GFR ( Amer) Est GFR (Non-Af Amer) POC Glucose (mg/dL) 463 H* 366 H Random Glucose Hemoglobin A1c Calcium Phosphorus Magnesium Total Bilirubin AST ALT Alkaline Phosphatase Total Creatine Kinase CK-MB (Mass) Troponin I Total Protein Albumin Globulin Albumin/Globulin Ratio Triglycerides Cholesterol LDL Cholesterol Direct HDL Cholesterol Urine Color Yellow Urine Clarity Hazy Urine pH 5.5 Ur Specific [place] 1.007 Urine Protein Negative Urine Glucose (UA) 250 Urine Ketones Negative Urine Blood Negative Urine Nitrate Negative Urine Bilirubin Negative Urine Urobilinogen Normal Ur Leukocyte Esterase Neg Urine WBC (Auto) 1 Urine RBC (Auto) 1 Ur Squamous Epith Cells 3 Urine Bacteria Rare Hyaline Casts 0-2 Granular Casts (Auto) 1 Ur L.pneumophila Ag 01/09/18 20:49 WBC RBC Hgb Hct MCV MCH MCHC RDW Plt Count MPV Neut % (Auto) Lymph % (Auto) [place] % (Auto) Eos % (Auto) Baso % (Auto) Neut # (Auto) Lymph # (Auto) [place] # (Auto) Eos # (Auto) Baso # (Auto) Neutrophils % (Manual) Band Neutrophils % Lymphocytes % (Manual) Monocytes % (Manual) Platelet Estimate Poikilocytosis (manual Anisocytosis (manual) Puncture Site pCO2 pO2 HCO3 ABG pH ABG Total CO2 ABG O2 Saturation ABG Base Excess ABG Hemoglobin ABG Carboxyhemoglobin POC ABG HHb (Measured) ABG Methemoglobin [place] Test Hgb O2 Saturation Liter Flow Sodium Potassium Chloride Carbon Dioxide Anion Gap BUN Creatinine Est GFR ( Amer) Est GFR (Non-Af Amer) POC Glucose (mg/dL) 402 H* Random Glucose Hemoglobin A1c Calcium Phosphorus Magnesium Total Bilirubin AST ALT Alkaline Phosphatase Total Creatine Kinase CK-MB (Mass) Troponin I Total Protein Albumin Globulin Albumin/Globulin Ratio Triglycerides Cholesterol LDL Cholesterol Direct HDL Cholesterol Urine Color Urine Clarity Urine pH Ur Specific [place] Urine Protein Urine Glucose (UA) Urine Ketones Urine Blood Urine Nitrate Urine Bilirubin Urine Urobilinogen Ur Leukocyte Esterase Urine WBC (Auto) Urine RBC (Auto) Ur Squamous Epith Cells Urine Bacteria Hyaline Casts Granular Casts (Auto) Ur L.pneumophila Ag
[2018-01-10] MEDS: Albuterol-Ipratrop 3 mg / 0.5 (3 ml) UD INH SCH ×6 (00:14→23:50)
[2018-01-10] MEDS: MethylPREDNISolone 40 mg Vial IVP SCH ×4 (04:51→23:58)
[2018-01-10] MEDS: Tiotropium 18 mcg Cap For Inhalation INH SCH (07:40)
[2018-01-10] MEDS: (Novolin R) Insulin Human Regular 100 units/ml vial SC SCH ×4 (08:06→21:52)
[2018-01-10] MEDS: Saccharomyces Boulardi 250 mg Cap PO SCH ×2 (09:07→17:58)
[2018-01-10] MEDS: Enoxaparin 30 mg Syringe SC SCH (09:10)
[2018-01-10] MEDS: Azithromycin 500 MG in Sodium Chloride 0.9% 250 ML IVPB SCH (11:03)
[2018-01-10 11:54] LABS: HEMOGLOBIN 8.4 g/dL (11.0-16.0); LYMPH # 0.6 K/uL (1.0-4.3); LYMPH % 2.8 % (20.0-40.0); MEAN CELL VOLUME 86.5 fL (81.0-99.0); MEAN CORPUSCULAR HEMOGLOBIN 28.4 pg (27.0-31.0); MEAN CORPUSCULAR HGB CONC 32.8 g/dL (33.0-37.0); MEAN PLATELET VOLUME 9.1 fL (7.2-11.7); MONO # 0.7 K/uL (0.0-0.8); MONO % 3.2 % (0.0-10.0); PLATELET COUNT 262 K/uL (130-400); RBC 2.97 Mil/uL (3.80-5.20); RED CELL DISTRIBUTION WIDTH 16.6 % (11.5-14.5); WHITE BLOOD COUNT 20.3 K/uL (4.8-10.8)
[2018-01-10 12:04] LABS: ALBUMIN 3.1 g/dL (3.5-5.0); AST/SGOT 19 U/L (14-36); BLOOD UREA NITROGEN 57 mg/dL (7-17); CALCIUM 8.6 mg/dl (8.6-10.4); GFR AFRICAN-AMERICAN 47; GFR NON-AFRICAN AMERICAN 39
[2018-01-10 12:05] LABS: ALT/SGPT < 6 U/L (9-52)
[2018-01-10 12:22] LABS: BANDS 12 % (0-2); LYMPHOCYTE 3 % (20-40); MONOCYTE 2 % (0-10); NEUTROPHIL 83 % (50-75); TOTAL CELLS COUNTED 100
[2018-01-10 12:23] LABS: ANISOCYTOSIS SLIGHT; HYPOCHROMIC SLIGHT; PLATELET ESTIMATE NORMAL (NORMAL)
[2018-01-10 12:24] LABS: OVALOCYTES SLIGHT; TOXIC GRANULATION PRESENT
[2018-01-10] MEDS ORDERED: (Lantus) Insulin Glargine, Recombinant SC SCH (12:59)
--- NOTE | 2018-01-10 15:53 | CP.PCM.PN ---
<Camilla Chavira PattiTierney - Last Filed: 01/10/18 15:53> Subjective - Date & Time of Evaluation Date of Evaluation: 01/10/18 Time of Evaluation: 07:00 - Subjective Subjective: Medicine Progress Note: Patient was seen and examined at bedside in the AM. Patient states her breathing does feel better than when she was admitted. Patient states she has chronic bone pain everywhere and she is having pain in the morning. Patient denies nausea, vomiting, fever or chills. Objective - Vital Signs/Intake and Output Vital Signs (last 24 hours): Temp Pulse Resp BP Pulse Ox 98.4 F 90 20 124/68 97 01/10/18 08:59 01/10/18 08:59 01/10/18 08:59 01/10/18 09:07 01/10/18 08:59 Intake and Output: 01/10/18 01/10/18 06:59 18:59 Intake Total 250 650 Balance 250 650 - Medications Medications: Current Medications Albuterol/Ipratropium (Duoneb 3 Mg/0.5 Mg (3 Ml) Ud) 3 ml INH RQ4 [facility] Last Admin: 01/10/18 13:41 Dose: 3 ml Alprazolam (Xanax) 0.25 mg PO DAILY PRN PRN Reason: Anxiety Last Admin: 01/08/18 22:25 Dose: 0.25 mg Aspirin (Aspirin Chewable) 81 mg PO DAILY [facility] Last Admin: 01/10/18 09:06 Dose: 81 mg Dextrose (Dextrose 50% Inj) 0 ml IV STAT PRN; Protocol PRN Reason: Hypoglycemia Protocol Dextrose (Glutose 15) 0 gm PO ONCE PRN; Protocol PRN Reason: Hypoglycemia Protocol Docusate Sodium (Colace) 100 mg PO DAILY [facility] Last Admin: 01/10/18 09:07 Dose: 100 mg Enoxaparin Sodium (Lovenox) 30 mg SC DAILY [facility] Last Admin: 01/10/18 09:10 Dose: 30 mg Furosemide (Lasix) 20 mg IVP DAILY [facility] Last Admin: 01/10/18 09:07 Dose: 20 mg Glucagon (Glucagen Diagnostic Kit) 0 mg IM STAT PRN; Protocol PRN Reason: Hypoglycemia Protocol Guaifenesin/Codeine Phosphate (Guaifenesin/Codeine) 5 ml PO Q6H PRN PRN Reason: Cough Last Admin: 01/10/18 05:44 Dose: 5 ml Dextrose (Dextrose 5% In Water 1000 Ml) 1,000 mls @ 0 mls/hr IV .Q0M PRN; Protocol; Per Protocol PRN Reason: Hypoglycemia Protocol Azithromycin 500 mg/ Sodium (Chloride) 250 mls @ 250 mls/hr IVPB DAILY [facility] PRN Reason: Protocol Last Admin: 01/10/18 11:03 Dose: 250 mls/hr Ceftriaxone Sodium 1 gm/ (Sodium Chloride) 100 mls @ 100 mls/hr IVPB DAILY [facility] PRN Reason: Protocol Last Admin: 01/10/18 09:09 Dose: 100 mls/hr Insulin Glargine (Lantus) 10 unit SC HS [facility] Insulin Human Isoph/Insulin Regular (Novolin 70/30 (70/30 Units/Ml) 10 Ml) 18 units SC ACBD [facility] Insulin Human Isoph/Insulin Regular (Novolin 70/30 (70/30 Units/Ml) 10 Ml) 36 units SC ACB [facility] Insulin Human Regular (Novolin R) 0 unit SC ACHS [facility] PRN Reason: Protocol Last Admin: 01/10/18 12:35 Dose: 6 unit Losartan Potassium (Cozaar) 25 mg PO DAILY [facility] Last Admin: 01/10/18 09:07 Dose: 25 mg Meclizine HCl (Antivert) 12.5 mg PO BID [facility] Last Admin: 01/10/18 09:08 Dose: 12.5 mg Methylprednisolone (Solu-Medrol) 40 mg IVP Q12H [facility] Pantoprazole Sodium (Protonix Inj) 40 mg IVP DAILY [facility] Last Admin: 01/10/18 09:08 Dose: 40 mg Rosuvastatin Calcium (Crestor) 5 mg PO HS [facility] Last Admin: 01/09/18 21:57 Dose: 5 mg Saccharomyces Boulardii (Florastor) 250 mg PO BID [facility] Last Admin: 01/10/18 09:07 Dose: 250 mg Tiotropium [place] (Spiriva) 18 mcg INH RQ24 [facility] Last Admin: 01/10/18 07:40 Dose: 18 mcg - Labs Labs: 01/10/18 11:32 01/10/18 11:32 - Constitutional Appears: No Acute Distress, Chronically Ill - Head Exam Head Exam: ATRAUMATIC, NORMAL INSPECTION - Eye Exam Eye Exam: EOMI, Normal appearance - ENT Exam ENT Exam: Mucous Membranes Moist - Respiratory Exam Respiratory Exam: NORMAL BREATHING PATTERN. absent: Wheezes - Cardiovascular Exam Cardiovascular Exam: REGULAR RHYTHM, +S1, +S2 - GI/Abdominal Exam GI & Abdominal Exam: Soft, Normal Bowel Sounds. absent: Tenderness - Extremities Exam Extremities Exam: Normal Inspection. absent: Pedal Edema - Neurological Exam Neurological Exam: Alert, Awake, Oriented x3 - Psychiatric Exam Psychiatric exam: Normal Affect, Normal Mood Assessment and Plan - Assessment and Plan (Free Text) Assessment: Shortness of breath - Secondary to COPD exacerbation vs. infection - Patient admitted to tele - Pulm Consult: Dr. Copeland --> help appreciated - Images: * Chest xray (01/08/18): Persistent linear/ bandlike right apical opacity. The chest x-ray depiction of the nodular component of this bandlike opacity is less conspicuous than that suggested on CT. Comments: Please note the or sensitive evaluation with CT: "Interval appearance of new pleural base opacity at the medial aspect of the right lung apex since the previous exam may represent scar tissue. The possibility of neoplasm is less likely but not totally excluded. 3 months follow-up reassessment is suggested." * Chest Xray (01/09/18): Stable chronic prominence of the bilateral interstitial markings. No focal consolidation or pleural effusion. * Chest CT (01/09/18): Chronic appearing scarring changes right lung apex associated with dystrophic type calcification which appears stable however previously noted soft tissue in the medial lung diminished in size. There is a new localized area of pleural thickening with what may represent lobular parenchymal atelectasis left lung apex. Additional scarring changes seen in the lateral aspect right upper lobe, both lung bases and middle lobe/lingular regions. Mild emphysematous changes. There are 2 small to medium-sized mediastinal lymph nodes. Cardiomegaly. Cholecystectomy. - ABG: pH 7.41; HCO3 121; CO2 37 - f/u Mycoplasma IgM, Strep pneumoniae - Medications: * Duonebs Q4H scheduled * Spiriva 18mcg inhaled daily * Solumedrol 40mg IV q12h * NS 50cc/hr --> to at midnight * Robotussin with codeine 5ml POq4h PRN for cough * Azithromycin 500mg IV daily (started 01/08/18) * Ceftriaxone 1gm IV daily (started 01/08/18) Leukocytosis with bands - possibly secondary to infection vs. COPD exacerbation in addition to steroid use - WBC on admission (01/08/18): 15.6 --> 14.5 - f/u blood cultures x2 - urine cultures: negative - per overnight nurse to catch a clean specimen they had to straight cath patient and during that process they received 500cc of urine - Negative: Legionella urine and influenza A - UA: negative - Medications: * Azithromycin 500mg IV daily (started 01/08/18) * Ceftriaxone 1gm IV daily (started 01/08/18) * Solumedrol 40mg IV q12h - Chest Xray (01/08/18): Persistent linear/ bandlike right apical opacity. The chest x-ray depiction of the nodular component of this bandlike opacity is less conspicuous than that suggested on CT. Comments: Please note the or sensitive evaluation with CT: "Interval appearance of new pleural base opacity at the medial aspect of the right lung apex since the previous exam may represent scar tissue. The possibility of neoplasm is less likely but not totally excluded. 3 months follow-up reassessment is suggested." Acute chest pain most likely secondary to COPD exacerbation - Cardio Consult: Dr. Hernandez --> help appreciated - BNP 3160 - Troponin x3 NEGATIVE - Previous ECHO (01/22/17): EF 52% - f/u ECHO - Medications: * ASA 81 mg PO QD * Crestor 5 mg PO HS * Norvasc 10 mg PO daily * Losartan 25 mg daily * Lasix 20 mg IVP daily History of CAD - ECHO (01/22/17): EF 52% - Lipid panel: Total Cholesterol 81; Triglycerides 61; LDL <30; HDL 28 - Medications: * ASA 81mg PO daily * Crestor 5mg po HS History of Hypertension - Medications: * Norvasc 10mg po daily * Losartan 25mg daily History of Diabetes mellitus - Hemoglobin A1C: 7.4 (10/04/17) - hA1c: 7.1 - Accuchecks Medications: * Lantus 12units HS * Novolin 70/30: 36 units SC ACB * Novolin 70/30: 18 units SC ACBD * ISS - high dose - Hypoglycemia protocol Acute Renal Insufficiency - possibly secondary to COPD/DM/HTN - Monitor BUN/Cr History of Vertigo - Meclizine 12.5 mg PO BID History of Anxiety - Xanax 0.5mg po daily History of Anemia - Monitor H/H - ferrous sulfate 325mg PO TID Anemia Work-up (12/06/2016): - Iron: 39, TIBC: 325, %SAT: 12 and Ferritin: 9.0 History of Constipation - Colace 100mg po bid Prophylaxis - SCDs - Lovenox 30mg SC daily - Protonix 40mg PO daily - Florastor 250mg po bid - Heart healthy diet/ Moderate Carb/2g Na, 1500mL - Ensure x3 - PT eval and treat - Palliative care Case discussed with Dr. Adriana Chavira PGY-1 <Torie Wright V - Last Filed: 01/11/18 14:23> Objective - Vital Signs/Intake and Output Vital Signs (last 24 hours): Temp Pulse Resp BP Pulse Ox 98.0 F 98 H 18 153/59 H 98 01/11/18 07:25 01/11/18 09:11 01/11/18 07:25 01/11/18 09:36 01/11/18 07:25 - Medications Medications: Current Medications Albuterol/Ipratropium (Duoneb 3 Mg/0.5 Mg (3 Ml) Ud) 3 ml INH RQ4 [facility] Last Admin: 01/11/18 13:12 Dose: 3 ml Alprazolam (Xanax) 0.25 mg PO DAILY PRN PRN Reason: Anxiety Last Admin: 01/08/18 22:25 Dose: 0.25 mg Aspirin (Aspirin Chewable) 81 mg PO DAILY [facility] Last Admin: 01/11/18 09:36 Dose: 81 mg Dextrose (Dextrose 50% Inj) 0 ml IV STAT PRN; Protocol PRN Reason: Hypoglycemia Protocol Dextrose (Glutose 15) 0 gm PO ONCE PRN; Protocol PRN Reason: Hypoglycemia Protocol Docusate Sodium (Colace) 100 mg PO DAILY [facility] Last Admin: 01/11/18 09:36 Dose: 100 mg Enoxaparin Sodium (Lovenox) 30 mg SC DAILY [facility] Last Admin: 01/11/18 09:35 Dose: 30 mg Furosemide (Lasix) 20 mg IVP DAILY [facility] Last Admin: 01/11/18 09:36 Dose: 20 mg Glucagon (Glucagen Diagnostic Kit) 0 mg IM STAT PRN; Protocol PRN Reason: Hypoglycemia Protocol Guaifenesin/Codeine Phosphate (Guaifenesin/Codeine) 5 ml PO Q6H PRN PRN Reason: Cough Last Admin: 01/10/18 05:44 Dose: 5 ml Dextrose (Dextrose 5% In Water 1000 Ml) 1,000 mls @ 0 mls/hr IV .Q0M PRN; Protocol; Per Protocol PRN Reason: Hypoglycemia Protocol Insulin Glargine (Lantus) 10 unit SC HS [facility] Last Admin: 01/10/18 22:29 Dose: 10 units Insulin Human Isoph/Insulin Regular (Novolin 70/30 (70/30 Units/Ml) 10 Ml) 20 units SC ACB [facility] Last Admin: 01/11/18 08:30 Dose: 20 units Insulin Human Isoph/Insulin Regular (Novolin 70/30 (70/30 Units/Ml) 10 Ml) 8 units SC ACBD [facility] Last Admin: 01/11/18 08:30 Dose: Not Given Insulin Human Regular (Novolin R) 0 unit SC ACHS [facility] PRN Reason: Protocol Last Admin: 01/11/18 12:49 Dose: 2 unit Losartan Potassium (Cozaar) 25 mg PO DAILY [facility] Last Admin: 01/11/18 09:36 Dose: 25 mg Meclizine HCl (Antivert) 12.5 mg PO BID [facility] Last Admin: 01/11/18 09:40 Dose: 12.5 mg Methylprednisolone (Solu-Medrol) 40 mg IVP Q12H [facility] Last Admin: 01/11/18 12:49 Dose: 40 mg Pantoprazole Sodium (Protonix Inj) 40 mg IVP DAILY [facility] Last Admin: 01/11/18 09:37 Dose: 40 mg Rosuvastatin Calcium (Crestor) 5 mg PO HS [facility] Last Admin: 01/10/18 22:28 Dose: 5 mg Saccharomyces Boulardii (Florastor) 250 mg PO BID [facility] Last Admin: 01/11/18 09:36 Dose: 250 mg Tiotropium [place] (Spiriva) 18 mcg INH RQ24 [facility] Last Admin: 01/11/18 07:25 Dose: 18 mcg - Labs Labs: 01/11/18 07:22 01/11/18 07:22 Attending/Attestation - Attestation I have personally seen and examined this patient.: Yes I have fully participated in the care of the patient.: Yes I have reviewed all pertinent clinical information, including history, physical exam and plan: Yes Notes (Text): This is late computer entry for 01/10/18. Patient seen, examined and case discussed with day-time resident. Patient reports she is feeling better, but reports body aches. Patient reports breathing is better and she appears better. Discussed case with pulmonary, patient to continue survelliance CT every 4 months. Patient does not have pneumonia. Patient's sugars uncontrolled secondary to IV steroids. We have restarted her insulin and will adjust and will lower steroid given improvement in lung exam. Pending report of echocardiogram. Assessment/Plan 1) COPD Exacerbation Pneumonia * Monitor on telemetry * Duonebs Q4H scheduled * Spiriva 18mcg inhaled q daily * Solumedrol 40mg IV Q12H * Robotussin w codeine 5ml POq4h PRN cough Imaging: * Chest xray (01/08/18): persistent linear/bandline right apical opacity. The chest xray depiction of the nodular component of this bandlike opacity is less conspicous than suggest on CT * Chest CT (01/09/18): Chronic appearing scarring changes right lung apex associated with dystrophic type calcification which appears stable however previously noted soft tissue in the medial lung diminished in size. There is a new localized area of pleural thickening with what may represent lobular parenchymal atelectasis left lung apex. Additional scarring changes seen in the lateral aspect right upper lobe, both lung bases and middle lobe/lingular regions. Mild emphysematous changes. There are 2 small to medium-sized mediastinal lymph nodes. Cardiomegaly. Cholecystectomy. * ABG: pH 7.41; HCO3 121; CO2 37 * Ordered for Legionella urine: negative, Mycoplasma IgM: negative, Strep pneumoniae, influenza A is negative 2) Chest Pain Hx of Coronary Artery Disease + Stent Assessment/Plan * Cardiology consult on board Dr. Hernandez->help appreciated * YADIRA X3: negative * elevated probnp * Check echocardiogram: pending * ASA 81 mg PO QD * Crestor 5 mg PO HS * Norvasc 10 mg PO daily * Losartan 25 mg daily * Lasix 20 mg IVP daily * beta-veronique contraindicated in light of hx of COPD side effect: bronchospasm 3) Leukocytosis Assessment/Plan: * c/w monitor blood cultures * f/u urine culture * Urine culture * Chest xray (01/08/18): persistent linear/bandline right apical opacity. The chest xray depiction of the nodular component of this bandllike opacity is less conspicous than suggest on CT * Patient is now on IV steroids. * Procalcitonin low 4) History of Anemia Assessment/Plan: * Monitor H/H * hgb: 9.1 5) Constipation Assessment/Plan: * Monitor for bowel movement 5) History of Diabetes mellitus Assessment/Plan: * HgbA1C in 06/22 was 9.2 * Hemoglobin A1C: 7.4 (10/04/17) * Accuchecks QAC and HS * ISS - low dose * Hypoglycemia protocol 6) History of Hypertension Assessment/Plan: * Norvasc 10 mg PO daily * Losartan 25 mg daily * Lasix 20 mg PO daily 7) History of Anxiety Assessment/Plan: * Xanax 0.25 mg po prn anxiety 8) History of Vertigo Assessment/Plan: * Meclizine 12.5 mg PO BID 9) Acute Renal insufficiency Assessment/Plan: * elevated * monitor BUN/Cr * stage 3 10) Prophylactic measure Assessment/Plan: * SCDs * Lovenox 30 mg SC daily * Pepcid 20 mg PO daily * Heart healthy diet * Ensure x3 * PT eval and treat * Decreasing hearing at left * DNR/DNI
[2018-01-10] MEDS ORDERED: (Novolin 70/30) NPH/Regular 70/30 Units/ml 10 ml vial SC SCH (16:30)
--- NOTE | 2018-01-10 18:01 | CP.PCM.PN ---
Subjective - Date & Time of Evaluation Date of Evaluation: 01/10/18 Time of Evaluation: 10:00 - Subjective Subjective: Reason for Consult: COPD Exacerbation + Asthma Patient seen and examined. Patient is comfortable and not evidently short of breath. Saturation is 97% on room air and patient still afebrile. Assessment/Plan 1. COPD Exacerbation vs. Pneumonia Patient still afebrile and not complaining of subjective chills; Repeat Chest CT showed no new findings. Not likely pneumonia, but will continue to follow for COPD. Continue Spiriva Q24h, Duonebs Q4H and Solu-Medrol 40 mg Q8H. 2. Linear band on CXR Seen on previous CT scan from November. Possibly scar tissue, unlikely malignancy. Objective - Vital Signs/Intake and Output Vital Signs (last 24 hours): Temp Pulse Resp BP Pulse Ox 98.1 F 85 20 138/63 100 01/10/18 15:13 01/10/18 15:13 01/10/18 15:13 01/10/18 15:13 01/10/18 15:13 Intake and Output: 01/10/18 01/10/18 06:59 18:59 Intake Total 250 650 Balance 250 650 - Medications Medications: Current Medications Albuterol/Ipratropium (Duoneb 3 Mg/0.5 Mg (3 Ml) Ud) 3 ml INH RQ4 [facility] Last Admin: 01/10/18 15:30 Dose: 3 ml Alprazolam (Xanax) 0.25 mg PO DAILY PRN PRN Reason: Anxiety Last Admin: 01/08/18 22:25 Dose: 0.25 mg Aspirin (Aspirin Chewable) 81 mg PO DAILY [facility] Last Admin: 01/10/18 09:06 Dose: 81 mg Dextrose (Dextrose 50% Inj) 0 ml IV STAT PRN; Protocol PRN Reason: Hypoglycemia Protocol Dextrose (Glutose 15) 0 gm PO ONCE PRN; Protocol PRN Reason: Hypoglycemia Protocol Docusate Sodium (Colace) 100 mg PO DAILY [facility] Last Admin: 01/10/18 09:07 Dose: 100 mg Enoxaparin Sodium (Lovenox) 30 mg SC DAILY [facility] Last Admin: 01/10/18 09:10 Dose: 30 mg Furosemide (Lasix) 20 mg IVP DAILY [facility] Last Admin: 01/10/18 09:07 Dose: 20 mg Glucagon (Glucagen Diagnostic Kit) 0 mg IM STAT PRN; Protocol PRN Reason: Hypoglycemia Protocol Guaifenesin/Codeine Phosphate (Guaifenesin/Codeine) 5 ml PO Q6H PRN PRN Reason: Cough Last Admin: 01/10/18 05:44 Dose: 5 ml Dextrose (Dextrose 5% In Water 1000 Ml) 1,000 mls @ 0 mls/hr IV .Q0M PRN; Protocol; Per Protocol PRN Reason: Hypoglycemia Protocol Azithromycin 500 mg/ Sodium (Chloride) 250 mls @ 250 mls/hr IVPB DAILY [facility] PRN Reason: Protocol Last Admin: 01/10/18 11:03 Dose: 250 mls/hr Ceftriaxone Sodium 1 gm/ (Sodium Chloride) 100 mls @ 100 mls/hr IVPB DAILY [facility] PRN Reason: Protocol Last Admin: 01/10/18 09:09 Dose: 100 mls/hr Insulin Glargine (Lantus) 10 unit SC HS [facility] Insulin Human Isoph/Insulin Regular (Novolin 70/30 (70/30 Units/Ml) 10 Ml) 18 units SC ACBD [facility] Insulin Human Isoph/Insulin Regular (Novolin 70/30 (70/30 Units/Ml) 10 Ml) 36 units SC ACB [facility] Insulin Human Regular (Novolin R) 0 unit SC ACHS [facility] PRN Reason: Protocol Last Admin: 01/10/18 12:35 Dose: 6 unit Losartan Potassium (Cozaar) 25 mg PO DAILY [facility] Last Admin: 01/10/18 09:07 Dose: 25 mg Meclizine HCl (Antivert) 12.5 mg PO BID [facility] Last Admin: 01/10/18 09:08 Dose: 12.5 mg Methylprednisolone (Solu-Medrol) 40 mg IVP Q12H [facility] Pantoprazole Sodium (Protonix Inj) 40 mg IVP DAILY [facility] Last Admin: 01/10/18 09:08 Dose: 40 mg Rosuvastatin Calcium (Crestor) 5 mg PO HS [facility] Last Admin: 01/09/18 21:57 Dose: 5 mg Saccharomyces Boulardii (Florastor) 250 mg PO BID [facility] Last Admin: 01/10/18 09:07 Dose: 250 mg Tiotropium [place] (Spiriva) 18 mcg INH RQ24 [facility] Last Admin: 01/10/18 07:40 Dose: 18 mcg - Labs Labs: 01/10/18 11:32 01/10/18 11:32
--- NOTE | 2018-01-10 22:16 | CP.PCM.PN ---
Subjective - Date & Time of Evaluation Date of Evaluation: 01/10/18 Time of Evaluation: 16:00 - Subjective Subjective: Patient seen and evaluated Comfortable Denies chest pain and dyspnea Objective - Vital Signs/Intake and Output Vital Signs (last 24 hours): Temp Pulse Resp BP Pulse Ox 98.1 F 85 20 138/63 100 01/10/18 15:13 01/10/18 15:13 01/10/18 15:13 01/10/18 15:13 01/10/18 15:13 Intake and Output: 01/10/18 01/11/18 18:59 06:59 Intake Total 650 Balance 650 - Medications Medications: Current Medications Albuterol/Ipratropium (Duoneb 3 Mg/0.5 Mg (3 Ml) Ud) 3 ml INH RQ4 [facility] Last Admin: 01/10/18 15:30 Dose: 3 ml Alprazolam (Xanax) 0.25 mg PO DAILY PRN PRN Reason: Anxiety Last Admin: 01/08/18 22:25 Dose: 0.25 mg Aspirin (Aspirin Chewable) 81 mg PO DAILY [facility] Last Admin: 01/10/18 09:06 Dose: 81 mg Dextrose (Dextrose 50% Inj) 0 ml IV STAT PRN; Protocol PRN Reason: Hypoglycemia Protocol Dextrose (Glutose 15) 0 gm PO ONCE PRN; Protocol PRN Reason: Hypoglycemia Protocol Docusate Sodium (Colace) 100 mg PO DAILY [facility] Last Admin: 01/10/18 09:07 Dose: 100 mg Enoxaparin Sodium (Lovenox) 30 mg SC DAILY [facility] Last Admin: 01/10/18 09:10 Dose: 30 mg Furosemide (Lasix) 20 mg IVP DAILY [facility] Last Admin: 01/10/18 09:07 Dose: 20 mg Glucagon (Glucagen Diagnostic Kit) 0 mg IM STAT PRN; Protocol PRN Reason: Hypoglycemia Protocol Guaifenesin/Codeine Phosphate (Guaifenesin/Codeine) 5 ml PO Q6H PRN PRN Reason: Cough Last Admin: 01/10/18 05:44 Dose: 5 ml Dextrose (Dextrose 5% In Water 1000 Ml) 1,000 mls @ 0 mls/hr IV .Q0M PRN; Protocol; Per Protocol PRN Reason: Hypoglycemia Protocol Azithromycin 500 mg/ Sodium (Chloride) 250 mls @ 250 mls/hr IVPB DAILY [facility] PRN Reason: Protocol Last Admin: 01/10/18 11:03 Dose: 250 mls/hr Ceftriaxone Sodium 1 gm/ (Sodium Chloride) 100 mls @ 100 mls/hr IVPB DAILY [facility] PRN Reason: Protocol Last Admin: 01/10/18 09:09 Dose: 100 mls/hr Insulin Glargine (Lantus) 10 unit SC HS [facility] Insulin Human Isoph/Insulin Regular (Novolin 70/30 (70/30 Units/Ml) 10 Ml) 18 units SC ACBD [facility] Last Admin: 01/10/18 17:30 Dose: 18 units Insulin Human Isoph/Insulin Regular (Novolin 70/30 (70/30 Units/Ml) 10 Ml) 36 units SC ACB [facility] Insulin Human Regular (Novolin R) 0 unit SC ACHS [facility] PRN Reason: Protocol Last Admin: 01/10/18 21:52 Dose: Not Given Losartan Potassium (Cozaar) 25 mg PO DAILY [facility] Last Admin: 01/10/18 09:07 Dose: 25 mg Meclizine HCl (Antivert) 12.5 mg PO BID [facility] Last Admin: 01/10/18 17:58 Dose: 12.5 mg Methylprednisolone (Solu-Medrol) 40 mg IVP Q12H [facility] Last Admin: 01/10/18 18:00 Dose: 40 mg Pantoprazole Sodium (Protonix Inj) 40 mg IVP DAILY [facility] Last Admin: 01/10/18 09:08 Dose: 40 mg Rosuvastatin Calcium (Crestor) 5 mg PO HS [facility] Last Admin: 01/09/18 21:57 Dose: 5 mg Saccharomyces Boulardii (Florastor) 250 mg PO BID [facility] Last Admin: 01/10/18 17:58 Dose: 250 mg Tiotropium [place] (Spiriva) 18 mcg INH RQ24 [facility] Last Admin: 01/10/18 07:40 Dose: 18 mcg - Labs Labs: 01/10/18 11:32 01/10/18 11:32
[2018-01-11] MEDS: Albuterol-Ipratrop 3 mg / 0.5 (3 ml) UD INH SCH ×4 (03:26→15:38)
--- NOTE | 2018-01-11 05:07 | CARD ---
APPROVED REPORT EXAM: Two-dimensional and M-mode echocardiogram with Doppler and color Doppler. Other Information Quality : GoodRhythm : INDICATION Dizziness and Vertigo Chest Pain RISK FACTORS Hypertension Hyperlipidemia Diabetes 2D DIMENSIONS IVSd1.3 (0.7-1.1cm)LVDd4.3 (3.9-5.9cm) PWd1.0 (0.7-1.1cm)LVDs2.7 (2.5-4.0cm) FS (%) 37.2 %LVEF (%)67.5 (>50%) M-Mode DIMENSIONS Left Atrium (MM)4.07 (2.5-4.0cm)Aortic Root3.27 (2.2-3.7cm) Aortic Cusp Exc.1.90 (1.5-2.0cm) Mitral Valve MV E Obepmqod33.1cm/sMV A Wzgidglq160.2cm/sE/A ratio0.7 TDI E/Lateral E'0.0E/Medial E'0.0 Tricuspid Valve TR Peak [id number]/sTR Peak Gr.[id number] LEFT VENTRICLE The left ventricle is normal size. Proximal septal thickening is noted. Left ventricle systolic function is normal. The Ejection Fraction is 65-70%. There is normal LV segmental wall motion. Tissue Doppler imaging reveals abnormal left ventricular diastolic dysfunction. RIGHT VENTRICLE The right ventricle is normal size. There is normal right ventricular wall thickness. The right ventricular systolic function is normal. ATRIA The left atrium is borderline dilated. The right atrium size is normal. The interatrial septum is intact with no evidence for an atrial septal defect. AORTIC VALVE The aortic valve is normal in structure. No aortic regurgitation is present. There is no aortic valvular stenosis. MITRAL VALVE The mitral valve is normal in structure. There is no evidence of mitral valve prolapse. There is no mitral valve stenosis. There is no mitral valve regurgitation noted. TRICUSPID VALVE The tricuspid valve is normal in structure. There is trace tricuspid regurgitation. Right ventricular systolic pressure is estimated at 30 mmHg. There is no pulmonary hypertension. PULMONIC VALVE The pulmonic valve is not well visualized. There is mild pulmonic valvular regurgitation. GREAT VESSELS The aortic root is normal in size. PERICARDIAL EFFUSION There is no significant pericardial effusion. <Conclusion> Left ventricle systolic function is normal. The Ejection Fraction is 65-70%. Diastolic dysfunction. No aortic regurgitation is present. There is no mitral valve regurgitation noted. There is trace tricuspid regurgitation. There is no pulmonary hypertension. There is mild pulmonic valvular regurgitation.
--- NOTE | 2018-01-11 05:30 | CARD ---
APPROVED REPORT EKG Measurement Heart [id number] <Conclusion> Normal sinus rhythm Left bundle branch block Abnormal ECG
--- NOTE | 2018-01-11 05:34 | CARD ---
APPROVED REPORT EKG Measurement Heart [id number] <Conclusion> Normal sinus rhythm Left bundle branch block Abnormal ECG
[2018-01-11] MEDS ORDERED: (Novolin 70/30) NPH/Regular 70/30 Units/ml 10 ml vial SC SCH ×5 (07:09→07:30)
--- NOTE | 2018-01-11 07:13 | CP.PCM.PN ---
Objective - Vital Signs/Intake and Output Vital Signs (last 24 hours): Temp Pulse Resp BP Pulse Ox 98.0 F 72 18 131/59 L 94 L 01/10/18 23:10 01/10/18 23:10 01/10/18 23:10 01/10/18 23:10 01/10/18 23:10 - Medications Medications: Current Medications Albuterol/Ipratropium (Duoneb 3 Mg/0.5 Mg (3 Ml) Ud) 3 ml INH RQ4 [facility] Last Admin: 01/11/18 03:26 Dose: Not Given Alprazolam (Xanax) 0.25 mg PO DAILY PRN PRN Reason: Anxiety Last Admin: 01/08/18 22:25 Dose: 0.25 mg Aspirin (Aspirin Chewable) 81 mg PO DAILY [facility] Last Admin: 01/10/18 09:06 Dose: 81 mg Dextrose (Dextrose 50% Inj) 0 ml IV STAT PRN; Protocol PRN Reason: Hypoglycemia Protocol Dextrose (Glutose 15) 0 gm PO ONCE PRN; Protocol PRN Reason: Hypoglycemia Protocol Docusate Sodium (Colace) 100 mg PO DAILY [facility] Last Admin: 01/10/18 09:07 Dose: 100 mg Enoxaparin Sodium (Lovenox) 30 mg SC DAILY [facility] Last Admin: 01/10/18 09:10 Dose: 30 mg Furosemide (Lasix) 20 mg IVP DAILY [facility] Last Admin: 01/10/18 09:07 Dose: 20 mg Glucagon (Glucagen Diagnostic Kit) 0 mg IM STAT PRN; Protocol PRN Reason: Hypoglycemia Protocol Guaifenesin/Codeine Phosphate (Guaifenesin/Codeine) 5 ml PO Q6H PRN PRN Reason: Cough Last Admin: 01/10/18 05:44 Dose: 5 ml Dextrose (Dextrose 5% In Water 1000 Ml) 1,000 mls @ 0 mls/hr IV .Q0M PRN; Protocol; Per Protocol PRN Reason: Hypoglycemia Protocol Azithromycin 500 mg/ Sodium (Chloride) 250 mls @ 250 mls/hr IVPB DAILY [facility] PRN Reason: Protocol Last Admin: 01/10/18 11:03 Dose: 250 mls/hr Ceftriaxone Sodium 1 gm/ (Sodium Chloride) 100 mls @ 100 mls/hr IVPB DAILY [facility] PRN Reason: Protocol Last Admin: 06/07/18 09:09 Dose: 100 mls/hr Insulin Glargine (Lantus) 10 unit SC HS [facility] Last Admin: 01/10/18 22:29 Dose: 10 units Insulin Human Isoph/Insulin Regular (Novolin 70/30 (70/30 Units/Ml) 10 Ml) 20 units SC ACB [facility] Insulin Human Isoph/Insulin Regular (Novolin 70/30 (70/30 Units/Ml) 10 Ml) 8 units SC ACBD [facility] Insulin Human Regular (Novolin R) 0 unit SC ACHS [facility] PRN Reason: Protocol Last Admin: 01/10/18 21:52 Dose: Not Given Losartan Potassium (Cozaar) 25 mg PO DAILY [facility] Last Admin: 01/10/18 09:07 Dose: 25 mg Meclizine HCl (Antivert) 12.5 mg PO BID [facility] Last Admin: 01/10/18 17:58 Dose: 12.5 mg Methylprednisolone (Solu-Medrol) 40 mg IVP Q12H [facility] Last Admin: 01/10/18 23:58 Dose: 40 mg Pantoprazole Sodium (Protonix Inj) 40 mg IVP DAILY [facility] Last Admin: 01/10/18 09:08 Dose: 40 mg Rosuvastatin Calcium (Crestor) 5 mg PO HS [facility] Last Admin: 01/10/18 22:28 Dose: 5 mg Saccharomyces Boulardii (Florastor) 250 mg PO BID [facility] Last Admin: 01/10/18 17:58 Dose: 250 mg Tiotropium [place] (Spiriva) 18 mcg INH RQ24 [facility] Last Admin: 01/10/18 07:40 Dose: 18 mcg - Labs Labs: 01/10/18 11:32 01/10/18 11:32
[2018-01-11] MEDS: Tiotropium 18 mcg Cap For Inhalation INH SCH (07:25)
[2018-01-11 07:35] LABS: BASO % 0.1 % (0.0-2.0); HEMOGLOBIN 8.5 g/dL (11.0-16.0); LYMPH # 0.6 K/uL (1.0-4.3); LYMPH % 3.9 % (20.0-40.0); MEAN CELL VOLUME 85.3 fL (81.0-99.0); MEAN CORPUSCULAR HEMOGLOBIN 28.2 pg (27.0-31.0); MEAN PLATELET VOLUME 8.3 fL (7.2-11.7); MONO # 0.4 K/uL (0.0-0.8); MONO % 2.6 % (0.0-10.0); NEUT # 14.8 K/uL (1.8-7.0); NEUT % 93.4 % (50.0-75.0); PLATELET COUNT 272 K/uL (130-400); RBC 3.03 Mil/uL (3.80-5.20); RED CELL DISTRIBUTION WIDTH 16.5 % (11.5-14.5); WHITE BLOOD COUNT 15.8 K/uL (4.8-10.8)
[2018-01-11 07:51] LABS: ALBUMIN 3.2 g/dL (3.5-5.0); ALT/SGPT 8 U/L (9-52); AST/SGOT 23 U/L (14-36); BLOOD UREA NITROGEN 48 mg/dL (7-17); CALCIUM 8.8 mg/dl (8.6-10.4); GFR AFRICAN-AMERICAN 47; GFR NON-AFRICAN AMERICAN 39
[2018-01-11] MEDS: (Novolin R) Insulin Human Regular 100 units/ml vial SC SCH ×3 (08:30→12:49)
[2018-01-11 08:40] LABS: ANISOCYTOSIS SLIGHT; BANDS 3 % (0-2); LYMPHOCYTE 4 % (20-40); MONOCYTE 2 % (0-10); NEUTROPHIL 91 % (50-75); PLATELET ESTIMATE NORMAL (NORMAL); TOTAL CELLS COUNTED 100
[2018-01-11 08:41] LABS: HYPOCHROMIC SLIGHT; OVALOCYTES SLIGHT
[2018-01-11] MEDS: Enoxaparin 30 mg Syringe SC SCH (09:35)
[2018-01-11] MEDS: Saccharomyces Boulardi 250 mg Cap PO SCH (09:36)
[2018-01-11] MEDS: Azithromycin 500 MG in Sodium Chloride 0.9% 250 ML IVPB SCH (11:07)
[2018-01-11] MEDS: MethylPREDNISolone 40 mg Vial IVP SCH (12:49)
--- NOTE | 2018-01-11 12:53 | CP.PCM.PN ---
Subjective - Date & Time of Evaluation Date of Evaluation: 01/11/18 Time of Evaluation: 09:20 - Subjective Subjective: patient seen and examined Breathing much improved Afebrile No chest pain Switch to p.o. antibiotics Tapering dose of prednisone Continue nebulizer Objective - Vital Signs/Intake and Output Vital Signs (last 24 hours): Temp Pulse Resp BP Pulse Ox 98.0 F 98 H 18 153/59 H 98 01/11/18 07:25 01/11/18 09:11 01/11/18 07:25 01/11/18 09:36 01/11/18 07:25 - Medications Medications: Current Medications Albuterol/Ipratropium (Duoneb 3 Mg/0.5 Mg (3 Ml) Ud) 3 ml INH RQ4 [facility] Last Admin: 01/11/18 07:25 Dose: 3 ml Alprazolam (Xanax) 0.25 mg PO DAILY PRN PRN Reason: Anxiety Last Admin: 01/08/18 22:25 Dose: 0.25 mg Aspirin (Aspirin Chewable) 81 mg PO DAILY [facility] Last Admin: 01/11/18 09:36 Dose: 81 mg Dextrose (Dextrose 50% Inj) 0 ml IV STAT PRN; Protocol PRN Reason: Hypoglycemia Protocol Dextrose (Glutose 15) 0 gm PO ONCE PRN; Protocol PRN Reason: Hypoglycemia Protocol Docusate Sodium (Colace) 100 mg PO DAILY [facility] Last Admin: 01/11/18 09:36 Dose: 100 mg Enoxaparin Sodium (Lovenox) 30 mg SC DAILY [facility] Last Admin: 01/11/18 09:35 Dose: 30 mg Furosemide (Lasix) 20 mg IVP DAILY [facility] Last Admin: 01/11/18 09:36 Dose: 20 mg Glucagon (Glucagen Diagnostic Kit) 0 mg IM STAT PRN; Protocol PRN Reason: Hypoglycemia Protocol Guaifenesin/Codeine Phosphate (Guaifenesin/Codeine) 5 ml PO Q6H PRN PRN Reason: Cough Last Admin: 01/10/18 05:44 Dose: 5 ml Dextrose (Dextrose 5% In Water 1000 Ml) 1,000 mls @ 0 mls/hr IV .Q0M PRN; Protocol; Per Protocol PRN Reason: Hypoglycemia Protocol Insulin Glargine (Lantus) 10 unit SC [facility] Last Admin: 06/07/18 22:29 Dose: 10 units Insulin Human Isoph/Insulin Regular (Novolin 70/30 (70/30 Units/Ml) 10 Ml) 20 units SC ACB [facility] Last Admin: 01/11/18 08:30 Dose: 20 units Insulin Human Isoph/Insulin Regular (Novolin 70/30 (70/30 Units/Ml) 10 Ml) 8 units SC ACBD [facility] Last Admin: 01/11/18 08:30 Dose: Not Given Insulin Human Regular (Novolin R) 0 unit SC ACHS [facility] PRN Reason: Protocol Last Admin: 01/11/18 12:49 Dose: 2 unit Losartan Potassium (Cozaar) 25 mg PO DAILY [facility] Last Admin: 01/11/18 09:36 Dose: 25 mg Meclizine HCl (Antivert) 12.5 mg PO BID [facility] Last Admin: 01/11/18 09:40 Dose: 12.5 mg Methylprednisolone (Solu-Medrol) 40 mg IVP Q12H [facility] Last Admin: 01/11/18 12:49 Dose: 40 mg Pantoprazole Sodium (Protonix Inj) 40 mg IVP DAILY [facility] Last Admin: 01/11/18 09:37 Dose: 40 mg Rosuvastatin Calcium (Crestor) 5 mg PO HS [facility] Last Admin: 01/10/18 22:28 Dose: 5 mg Saccharomyces Boulardii (Florastor) 250 mg PO BID [facility] Last Admin: 01/11/18 09:36 Dose: 250 mg Tiotropium [place] (Spiriva) 18 mcg INH RQ24 [facility] Last Admin: 01/11/18 07:25 Dose: 18 mcg - Labs Labs: 01/11/18 07:22 01/11/18 07:22
[2018-01-11 13:44] LABS: MYCOPLASMA PNEUMONIAE IGM NEGATIVE (NEGATIVE)
--- NOTE | 2018-01-11 14:50 | CP.PCM.DIS ---
<Camilla Chavira - Last Filed: 01/11/18 14:48> Provider - Provider Date of Admission: 01/08/18 17:30 Attending physician: oTrie Wright DO Time Spent in preparation of Discharge (in minutes): 40 Hospital Course - Lab Results Lab Results: Micro Results 01/08/18 17:57 Blood Blood Culture - Preliminary NO GROWTH AFTER 24 HOURS 01/08/18 17:54 Blood Blood Culture - Preliminary NO GROWTH AFTER 24 HOURS 01/09/18 06:57 Urine,Catheterized Urine Culture - Final No Growth (<1,000 CFU/ML) Most Recent Lab Values WBC 15.8 K/uL (4.8-10.8) H 01/11/18 07:22 RBC 3.03 Mil/uL (3.80-5.20) L 01/11/18 07:22 Hgb 8.5 g/dL (11.0-16.0) L 01/11/18 07:22 Hct 25.8 % (34.0-47.0) L 01/11/18 07:22 MCV 85.3 fL (81.0-99.0) 01/11/18 07:22 MCH 28.2 pg (27.0-31.0) 01/11/18 07:22 MCHC 33.0 g/dL (33.0-37.0) 01/11/18 07:22 RDW 16.5 % (11.5-14.5) H 01/11/18 07:22 Plt Count 272 K/uL (130-400) 01/11/18 07:22 MPV 8.3 fL (7.2-11.7) 01/11/18 07:22 Neut % (Auto) 93.4 % (50.0-75.0) H 01/11/18 07:22 Lymph % (Auto) 3.9 % (20.0-40.0) L 01/11/18 07:22 Green % (Auto) 2.6 % (0.0-10.0) 01/11/18 07:22 Eos % (Auto) 0.0 % (0.0-4.0) 01/11/18 07:22 Baso % (Auto) 0.1 % (0.0-2.0) 01/11/18 07:22 Neut # (Auto) 14.8 K/uL (1.8-7.0) H 01/11/18 07:22 Lymph # (Auto) 0.6 K/uL (1.0-4.3) L 01/11/18 07:22 Green # (Auto) 0.4 K/uL (0.0-0.8) 01/11/18 07:22 Eos # (Auto) 0.0 K/uL (0.0-0.7) 01/11/18 07:22 Baso # (Auto) 0.0 K/uL (0.0-0.2) 01/11/18 07:22 Neutrophils % (Manual) 91 % (50-75) H 01/11/18 07:22 Band Neutrophils % 3 % (0-2) H 01/11/18 07:22 Lymphocytes % (Manual) 4 % (20-40) L 01/11/18 07:22 Monocytes % (Manual) 2 % (0-10) 01/11/18 07:22 Eosinophils % (Manual) 1 % (0-4) 01/08/18 16:41 Toxic Granulation Present 01/10/18 11:32 Platelet Estimate Normal (NORMAL) 01/11/18 07:22 Hypochromasia (manual) Slight 01/11/18 07:22 Poikilocytosis (manual Slight 01/09/18 01:00 Anisocytosis (manual) Slight 01/11/18 07:22 Ovalocytes Slight 01/11/18 07:22 Puncture Site Lb 01/09/18 10:22 pCO2 37 mm/Hg (35-45) 01/09/18 10:22 pO2 121 mm/Hg (80-100) H 01/09/18 10:22 HCO3 24.2 mmol/L (21-28) 01/09/18 10:22 ABG pH 7.41 (7.35-7.45) 01/09/18 10:22 ABG Total CO2 24.6 mmol/L (22-28) 01/09/18 10:22 ABG O2 Saturation 97.6 % (95-98) 01/09/18 10:22 ABG Base Excess -1.0 mmol/L (-2.0-3.0) 01/09/18 10:22 ABG Hemoglobin 7.5 g/dL (11.7-17.4) L 01/09/18 10:22 ABG Carboxyhemoglobin 0.5 % (0.5-1.5) 01/09/18 10:22 POC ABG HHb (Measured) 2.4 % (0.0-5.0) 01/09/18 10:22 ABG Methemoglobin 1.0 % (0.0-3.0) 01/09/18 10:22 [place] Test Na 01/09/18 10:22 Hgb O2 Saturation 96.1 % (95.0-98.0) 01/09/18 10:22 Liter Flow 3.0 01/09/18 10:22 Sodium 142 mmol/L (132-148) 01/11/18 07:22 Potassium 4.2 mmol/L (3.6-5.2) 01/11/18 07:22 Chloride 101 mmol/L (98-107) 01/11/18 07:22 Carbon Dioxide 30 mmol/L (22-30) 01/11/18 07:22 Anion Gap 15 (10-20) 01/11/18 07:22 BUN 48 mg/dL (7-17) H 01/11/18 07:22 Creatinine 1.3 mg/dL (0.7-1.2) H 01/11/18 07:22 Est GFR ( Amer) 47 01/11/18 07:22 Est GFR (Non-Af Amer) 39 01/11/18 07:22 POC Glucose (mg/dL) 167 mg/dL (65-110) H 01/11/18 11:34 Random Glucose 242 mg/dL (65-105) H 01/11/18 07:22 Hemoglobin A1c 7.1 % (4.2-6.5) H 01/09/18 00:09 Calcium 8.8 mg/dl (8.6-10.4) 01/11/18 07:22 Phosphorus 2.8 mg/dL (2.5-4.5) 01/11/18 07:22 Magnesium 1.9 mg/dL (1.6-2.3) 01/11/18 07:22 Total Bilirubin < 0.1 mg/dL (0.2-1.3) L 01/11/18 07:22 AST 23 U/L (14-36) 01/11/18 07:22 ALT 8 U/L (9-52) L D 01/11/18 07:22 Alkaline Phosphatase 90 U/L (38-126) 01/11/18 07:22 Total Creatine Kinase 25 U/L (30-135) L 01/09/18 06:48 CK-MB (Mass) 1.47 ng/mL (0.0-3.38) 01/09/18 06:48 Troponin I < 0.0120 ng/mL (0.00-0.120) 01/09/18 06:48 NT-Pro-B Natriuret Pep 3160 pg/mL (0-900) H 01/08/18 16:41 Total Protein 6.3 g/dL (6.3-8.3) 01/11/18 07:22 Albumin 3.2 g/dL (3.5-5.0) L 01/11/18 07:22 Globulin 3.1 gm/dL (2.2-3.9) 01/11/18 07:22 Albumin/Globulin Ratio 1.0 (1.0-2.1) 01/11/18 07:22 Triglycerides 61 mg/dL (0-149) D 01/09/18 00:09 Cholesterol 81 mg/dL (0-199) 01/09/18 00:09 LDL Cholesterol Direct < 30 mg/dL (0-129) 01/09/18 00:09 HDL Cholesterol 28 mg/dL (30-70) L 01/09/18 00:09 Urine Color Yellow (YELLOW) 01/09/18 13:56 Urine Clarity Hazy (Clear) 01/09/18 13:56 Urine pH 5.5 (5.0-8.0) 01/09/18 13:56 Ur Specific [place] 1.007 (1.003-1.030) 01/09/18 13:56 Urine Protein Negative mg/dL (NEGATIVE) 01/09/18 13:56 Urine Glucose (UA) 250 mg/dL (Normal) 01/09/18 13:56 Urine Ketones Negative mg/dL (NEGATIVE) 01/09/18 13:56 Urine Blood Negative (NEGATIVE) 01/09/18 13:56 Urine Nitrate Negative (NEGATIVE) 01/09/18 13:56 Urine Bilirubin Negative (NEGATIVE) 01/09/18 13:56 Urine Urobilinogen Normal mg/dL (0.2-1.0) 01/09/18 13:56 Ur Leukocyte Esterase Neg Branden/uL (Negative) 01/09/18 13:56 Urine WBC (Auto) 1 /hpf (0-5) 01/09/18 13:56 Urine RBC (Auto) 1 /hpf (0-3) 01/09/18 13:56 Ur Squamous Epith Cells 3 /hpf (0-5) 01/09/18 13:56 Urine Bacteria Rare (<OCC) 01/09/18 13:56 Hyaline Casts 0-2 /lpf (0-2) 01/09/18 13:56 Granular Casts (Auto) 1 /lpf (0-1) 01/09/18 13:56 Influenza Typ A,B (EIA) Negative for flu a/b (NEGATIVE) 01/08/18 20:34 Ur L.pneumophila Ag Negative (NEGATIVE) 01/09/18 06:48 Mycoplasma pneumon IgM Negative (NEGATIVE) 01/09/18 06:48 - Hospital Course Hospital Course: Code Status: DNR/DNI (discussed with patient at bedside at 17:30 with daughter Kira Curiel at bedside) Contact: Daughter Kira Curiel #[phone] CC: "Chest Pain" HPI: 86 year old female with past medical history of CAD, HTN, DM, gastritis, asthma, arthritis, COPD, anxiety who presents to the ER for chest pain and shortness of breath. Patient states the chest pain has been going on for 1 week but it was worse today. Patient states she feels short of breath at home and has not been using her home oxygen for some time now as she states she does not have the proper tubing to use it. She also states all her bones all over body aches and it makes it difficult for her to walk. Patient states her last bowel movement was yesterday but states she has chronic straining when having a bowel movement. Patient's daughter had a cold recently. Patient currently denies recent travel, nausea, vomiting, fever, dysuria or diarrhea. PMD: Dr. Gomez Past Medical History: CAD, HTN, DM, gastritis, asthma, arthritis, COPD, anxiety Past Surgical History: hysterectomy and oopherectomy, cataract surgery, Cardiac cath 02/2016 with 2x stents Family History: Mother had asthma, heart disease, at age 92 Medications: xanax 1 mg PO daily; norvasc 10 mg po daily; asa 81 mg daily; colace 100 mg pobid; nexium 40mg daily; ferrous sulfate 325 bid; furosemide; Lantus 10 units HS; Insulin aspart 5 units AC TID; losartan 25 mg daily; Amitiza 24 mcg by mouth twice daily; Advair 50/250 mcg inhaled twice daily, Crestor 5 mg by mouth once daily at bedtime; Albuterol 90 mcg 2 puffs inhaled every 6 hours as needed for shortness of breath; Combigan (0.5%/0.2%) 1 drop in each eye twice daily at breakfast and dinner Allergies: NKDA Social History: smoked 1ppd x 50 yrs, quit 20 yrs ago; social drinker in the past, denies current use. denies illicit drug use. Hospital course On admission patient had wbc 15.6, hgb 9.1, and hct 27.2. Patient administered Duonebs and IV corticosteroids. Patient continued to wheeze, admitted to [facility] for evaluation COPD exacerbation vs infection. Chest Pain and shortness of breath were secondary to COPD exacerbation. Continued on Duoneb, Spiriva, and Solumedrol therapy. Patient's breathing continued to improve throughout hospitalization. Leukocytosis managed with Azithromycin and Ceftriaxone. Cultures negative, influenza negative, legionella negative, mycoplasma negative. EKG on admission showed normal sinus rhythm with LBBB and prolonged QTc. Repeat EKG 6hrs later showed no changes. BNP 3160. Troponin negative x3. Diabetes managed with low dose ISS. Prophylaxis with Lovenox daily, Protonix daily, florastor 250 bid. Imaging CXR 01/08/18- Persistant linear opacity in the right apex less conspicuous than previous chest CT 11/18/17. CXR 01/09/18- Corky chronic prominence of bl interstitial markings without focal consolidation or pleural effusion. Chest CT 01/09/18- Stable chronic scarring changes with dystrophic calcification in right lung apex. New localized pleural thickening with possible lobular parenchymal atelectasis in left lung apex. Additional scarring changes in lateral aspect of right upper lobe, bl lung bases, and middle/lingular lobes. Mild emphysematous changes. 2 small to medium sized mediastinal lymph nodes. Cardiomegaly. Patient is stable for discharge home. Please take the following medications as prescribed to you: Xanax 1 mg by mouth once daily at lunch time Norvasc 10 mg by mouth once daily at breakfast Aspirin 81 mg by mouth once daily at breakfast Combigan (0.5%/0.2%) 1 drop in each eye twice daily at breakfast and dinner Colace 100 mg by mouth three timer per day at breakfast, lunch and dinner Novolin 70/30 20 units subcutaneously with breakfast Novolin 70/30 8 units subcutaneously with dinner Lantus 10 units subcutaneous at bedtime Crestor 5 mg by mouth once daily at bedtime Amitiza 24 mcg by mouth twice daily Losartan 25 mg by mouth once daily Nexium 40 mg by mouth once daily Advair 50/250 mcg inhaled twice daily Spiriva 1 puff daily Albuterol 90 mcg 2 puffs inhaled every 6 hours as needed for shortness of breath Ferrous sulfate 325 mg by mouth twice daily at breakfast and dinner Calcium citrate 1,200 mg with Vitamin D 800 units everyday in divided doses ( not all at once) over the counter Prednisone 10 mg (5 tabs on 01/12, 4 tabs on 01/13, 3 tabs on 01/14, 2 tabs on 01/15 , and 1 tab on 01/16) Please follow up with Dr. Gomez in one week. Please check blood sugar levels and bring a log with you to Dr. Gomez's office. This is a summary of the patient's hospital course. Refer to full EMR for a complete record. Discharge Exam - Head Exam Head Exam: ATRAUMATIC, NORMAL INSPECTION - Eye Exam Eye Exam: EOMI, Normal appearance, PERRL Pupil Exam: NORMAL ACCOMODATION - ENT Exam ENT Exam: Mucous Membranes Moist - Respiratory Exam Respiratory Exam: Clear to PA & Lateral, NORMAL BREATHING PATTERN. absent: Wheezes - Cardiovascular Exam Cardiovascular Exam: REGULAR RHYTHM, +S1, +S2 - GI/Abdominal Exam GI & Abdominal Exam: Normal Bowel Sounds, Soft. absent: Tenderness - Extremities Exam Extremities exam: normal capillary refill, normal inspection - Neurological Exam Neurological exam: Alert, Oriented x3 - Skin Skin Exam: Dry, Warm Discharge Plan - Discharge Medications Prescriptions: Azithromycin [Z-Abilio] 250 mg PO DAILY #6 tab RX: Insulin Human (NPH)/Regular [Novolin 70/30 (70/30 units/ml) 10 ml] 20 units SC ACB 30 Days unit RX: Insulin Human (NPH)/Regular [Novolin 70/30 (70/30 units/ml) 10 ml] 8 units SC ACBD 30 Days unit predniSONE [Prednisone] 10 mg PO DAILY #15 tab RX: Tiotropium [Spiriva] 18 mcg INH RQ24 #1 cap - Follow Up Plan Condition: FAIR Disposition: HOME/ ROUTINE Instructions: Heart Healthy Diet, Carbohydrate Counting Diet, Diabetes Diet , Coronary Heart Disease (DC), Exacerbation of COPD (DC) Additional Instructions: Please take the following medications as prescribed to you: Xanax 1 mg by mouth once daily at lunch time Norvasc 10 mg by mouth once daily at breakfast Aspirin 81 mg by mouth once daily at breakfast Combigan (0.5%/0.2%) 1 drop in each eye twice daily at breakfast and dinner Colace 100 mg by mouth three timer per day at breakfast, lunch and dinner Novolin 70/30 20 units subcutaneously with breakfast Novolin 70/30 8 units subcutaneously with dinner Lantus 10 units subcutaneous at bedtime Crestor 5 mg by mouth once daily at bedtime Amitiza 24 mcg by mouth twice daily Losartan 25 mg by mouth once daily Nexium 40 mg by mouth once daily Advair 50/250 mcg inhaled twice daily Spiriva 1 puff daily Albuterol 90 mcg 2 puffs inhaled every 6 hours as needed for shortness of breath Ferrous sulfate 325 mg by mouth twice daily at breakfast and dinner Calcium citrate 1,200 mg with Vitamin D 800 units everyday in divided doses ( not all at once) over the counter Prednisone 10 mg (5 tabs on 01/12, 4 tabs on 01/13, 3 tabs on 01/14, 2 tabs on 01/15 , and 1 tab on 01/16) Please follow up with Dr. Gomez in one week. Please check blood sugar levels and bring a log with you to Dr. Gomez's office. Por favor, tome los siguientes medicamentos segn lo recetado: Xanax 1 mg por va oral north vez al da a la hora del almuerzo Norvasc 10 mg por va oral north vez al da en el desayuno Aspirina 81 mg por va oral north vez al da en el desayuno Combigan (0.5% / 0.2%) 1 gota en cada farzad dos veces al da en el desayuno y la leslie Colace 100 mg por la boca marissa temporizador por da en el desayuno, el almuerzo y la mill feeder Novolin 70/30 20 unidades por va subcutnea con desayuno Novolin 70/30 8 unidades por va subcutnea con mill feeder Lantus 10 unidades subcutneas antes de acostarse Crestor 5 mg por va oral north vez al da antes de acostarse Amitiza 24 mcg por va oral dos veces al da Losartan 25 mg por va oral north vez al da Nexium 40 mg por va oral north vez al da Advair 50/250 mcg inhalado dos veces al da Spiriva 1 inhalacin diaria Albuterol 90 mcg 2 inhalaciones inhaladas cada 6 horas segn sea necesario para la falta de aliento Sulfato ferroso 325 mg por va oral dos veces al da en el desayuno y la mill feeder Citrato de calcio 1,200 mg con Vitamina D 800 unidades diarias en dosis divididas (no todas a la vez) en el mostrador Prednisona 10 mg (5 pestaas en 01/12, 4 pestaas en 01/13, 3 pestaas en 01/14, 2 pestaas en 01/15, y 1 pestaa en 01/16) Por favor, siga con el Dr. Gomez en north semana. Verifique los niveles de azcar en la donita y lleve un registro a la oficina del Dr. Gomez. Referrals: Gerardo Copeland MD [Staff Provider] - <Torie Wright V - Last Filed: 01/11/18 15:18> Provider - Provider Date of Admission: 01/08/18 17:30 Attending physician: Torie Wright DO Hospital Course - Lab Results Lab Results: Micro Results 01/08/18 17:57 Blood Blood Culture - Preliminary NO GROWTH AFTER 24 HOURS 01/08/18 17:54 Blood Blood Culture - Preliminary NO GROWTH AFTER 24 HOURS 01/09/18 06:57 Urine,Catheterized Urine Culture - Final No Growth (<1,000 CFU/ML) Most Recent Lab Values WBC 15.8 K/uL (4.8-10.8) H 01/11/18 07:22 RBC 3.03 Mil/uL (3.80-5.20) L 01/11/18 07:22 Hgb 8.5 g/dL (11.0-16.0) L 01/11/18 07:22 Hct 25.8 % (34.0-47.0) L 01/11/18 07:22 MCV 85.3 fL (81.0-99.0) 01/11/18 07:22 MCH 28.2 pg (27.0-31.0) 01/11/18 07:22 MCHC 33.0 g/dL (33.0-37.0) 01/11/18 07:22 RDW 16.5 % (11.5-14.5) H 01/11/18 07:22 Plt Count 272 K/uL (130-400) 01/11/18 07:22 MPV 8.3 fL (7.2-11.7) 01/11/18 07:22 Neut % (Auto) 93.4 % (50.0-75.0) H 01/11/18 07:22 Lymph % (Auto) 3.9 % (20.0-40.0) L 01/11/18 07:22 Green % (Auto) 2.6 % (0.0-10.0) 01/11/18 07:22 Eos % (Auto) 0.0 % (0.0-4.0) 01/11/18 07:22 Baso % (Auto) 0.1 % (0.0-2.0) 01/11/18 07:22 Neut # (Auto) 14.8 K/uL (1.8-7.0) H 01/11/18 07:22 Lymph # (Auto) 0.6 K/uL (1.0-4.3) L 01/11/18 07:22 Green # (Auto) 0.4 K/uL (0.0-0.8) 01/11/18 07:22 Eos # (Auto) 0.0 K/uL (0.0-0.7) 01/11/18 07:22 Baso # (Auto) 0.0 K/uL (0.0-0.2) 01/11/18 07:22 Neutrophils % (Manual) 91 % (50-75) H 01/11/18 07:22 Band Neutrophils % 3 % (0-2) H 01/11/18 07:22 Lymphocytes % (Manual) 4 % (20-40) L 01/11/18 07:22 Monocytes % (Manual) 2 % (0-10) 01/11/18 07:22 Eosinophils % (Manual) 1 % (0-4) 01/08/18 16:41 Toxic Granulation Present 01/10/18 11:32 Platelet Estimate Normal (NORMAL) 01/11/18 07:22 Hypochromasia (manual) Slight 01/11/18 07:22 Poikilocytosis (manual Slight 01/09/18 01:00 Anisocytosis (manual) Slight 01/11/18 07:22 Ovalocytes Slight 01/11/18 07:22 Puncture Site Lb 01/09/18 10:22 pCO2 37 mm/Hg (35-45) 01/09/18 10:22 pO2 121 mm/Hg (80-100) H 01/09/18 10:22 HCO3 24.2 mmol/L (21-28) 01/09/18 10:22 ABG pH 7.41 (7.35-7.45) 01/09/18 10:22 ABG Total CO2 24.6 mmol/L (22-28) 01/09/18 10:22 ABG O2 Saturation 97.6 % (95-98) 01/09/18 10:22 ABG Base Excess -1.0 mmol/L (-2.0-3.0) 01/09/18 10:22 ABG Hemoglobin 7.5 g/dL (11.7-17.4) L 01/09/18 10:22 ABG Carboxyhemoglobin 0.5 % (0.5-1.5) 01/09/18 10:22 POC ABG HHb (Measured) 2.4 % (0.0-5.0) 01/09/18 10:22 ABG Methemoglobin 1.0 % (0.0-3.0) 01/09/18 10:22 [place] Test Na 01/09/18 10:22 Hgb O2 Saturation 96.1 % (95.0-98.0) 01/09/18 10:22 Liter Flow 3.0 01/09/18 10:22 Sodium 142 mmol/L (132-148) 01/11/18 07:22 Potassium 4.2 mmol/L (3.6-5.2) 01/11/18 07:22 Chloride 101 mmol/L (98-107) 01/11/18 07:22 Carbon Dioxide 30 mmol/L (22-30) 01/11/18 07:22 Anion Gap 15 (10-20) 01/11/18 07:22 BUN 48 mg/dL (7-17) H 01/11/18 07:22 Creatinine 1.3 mg/dL (0.7-1.2) H 01/11/18 07:22 Est GFR ( Amer) 47 01/11/18 07:22 Est GFR (Non-Af Amer) 39 01/11/18 07:22 POC Glucose (mg/dL) 167 mg/dL (65-110) H 01/11/18 11:34 Random Glucose 242 mg/dL (65-105) H 01/11/18 07:22 Hemoglobin A1c 7.1 % (4.2-6.5) H 01/09/18 00:09 Calcium 8.8 mg/dl (8.6-10.4) 01/11/18 07:22 Phosphorus 2.8 mg/dL (2.5-4.5) 01/11/18 07:22 Magnesium 1.9 mg/dL (1.6-2.3) 01/11/18 07:22 Total Bilirubin < 0.1 mg/dL (0.2-1.3) L 01/11/18 07:22 AST 23 U/L (14-36) 01/11/18 07:22 ALT 8 U/L (9-52) L D 01/11/18 07:22 Alkaline Phosphatase 90 U/L (38-126) 01/11/18 07:22 Total Creatine Kinase 25 U/L (30-135) L 01/09/18 06:48 CK-MB (Mass) 1.47 ng/mL (0.0-3.38) 01/09/18 06:48 Troponin I < 0.0120 ng/mL (0.00-0.120) 01/09/18 06:48 NT-Pro-B Natriuret Pep 3160 pg/mL (0-900) H 01/08/18 16:41 Total Protein 6.3 g/dL (6.3-8.3) 01/11/18 07:22 Albumin 3.2 g/dL (3.5-5.0) L 01/11/18 07:22 Globulin 3.1 gm/dL (2.2-3.9) 01/11/18 07:22 Albumin/Globulin Ratio 1.0 (1.0-2.1) 01/11/18 07:22 Triglycerides 61 mg/dL (0-149) D 01/09/18 00:09 Cholesterol 81 mg/dL (0-199) 01/09/18 00:09 LDL Cholesterol Direct < 30 mg/dL (0-129) 01/09/18 00:09 HDL Cholesterol 28 mg/dL (30-70) L 01/09/18 00:09 Urine Color Yellow (YELLOW) 01/09/18 13:56 Urine Clarity Hazy (Clear) 01/09/18 13:56 Urine pH 5.5 (5.0-8.0) 01/09/18 13:56 Ur Specific [place] 1.007 (1.003-1.030) 01/09/18 13:56 Urine Protein Negative mg/dL (NEGATIVE) 01/09/18 13:56 Urine Glucose (UA) 250 mg/dL (Normal) 01/09/18 13:56 Urine Ketones Negative mg/dL (NEGATIVE) 01/09/18 13:56 Urine Blood Negative (NEGATIVE) 01/09/18 13:56 Urine Nitrate Negative (NEGATIVE) 01/09/18 13:56 Urine Bilirubin Negative (NEGATIVE) 01/09/18 13:56 Urine Urobilinogen Normal mg/dL (0.2-1.0) 01/09/18 13:56 Ur Leukocyte Esterase Neg Branden/uL (Negative) 01/09/18 13:56 Urine WBC (Auto) 1 /hpf (0-5) 01/09/18 13:56 Urine RBC (Auto) 1 /hpf (0-3) 01/09/18 13:56 Ur Squamous Epith Cells 3 /hpf (0-5) 01/09/18 13:56 Urine Bacteria Rare (<OCC) 01/09/18 13:56 Hyaline Casts 0-2 /lpf (0-2) 01/09/18 13:56 Granular Casts (Auto) 1 /lpf (0-1) 01/09/18 13:56 Influenza Typ A,B (EIA) Negative for flu a/b (NEGATIVE) 01/08/18 20:34 Ur L.pneumophila Ag Negative (NEGATIVE) 01/09/18 06:48 Mycoplasma pneumon IgM Negative (NEGATIVE) 01/09/18 06:48 Attending/Attestation - Attestation I have personally seen and examined this patient.: Yes I have fully participated in the care of the patient.: Yes I have reviewed all pertinent clinical information, including history, physical exam and plan: Yes Notes (Text): Patient seen, examined and case discussed with day-time resident. Patient reports she is breathing better and denies chest pain. Discussed with pulmonary, patient stable from their standpoint for discharge planning. patient does not want to go to rehab; she wants to go home. Medications upon discharge: 1) Z-pack 2) Novolin 70/30 20 units subq ACB Novolin 70/30 8 units subq ACBD 3) Lantus 10 units subHS 4) Prednisone taper (take with food)-->5 tabs on 01/12, 4 tabs on 01/13, 3 tabs on 01/14, 2 tabs on 01/15, 1 tab on 01/16--.then DONE 5) Spiriva 18mcg inhaled daily Patient to resume on discharge instructions: 1) home oxygen 2) Albuterol HFA 3) norvasc 10mg PO daily 4) Aspirin 81mg PO daily) 5) Colace 100mg PO bid 6) Nexium 40mg PO daily 7) Ferrous sulfate 325mg PO BID 8) Losartan 25mg PO daily) 9) Antivert 12.5mg PO bid 10) Crestor 5mg PO qHS Patient to f/u with PMD for adjustment in insulin regiment. Patient to f/u with pulmonary upon discharge. This is a summary of patient's hospitalization. Please see EMR for full details of record. Discharge Diagnoses: 1) COPD Exacerbation * Pulmonary (Dr. Copeland) on board-->help appreciated * Monitor on telemetry * Duonebs Q4H scheduled * Spiriva 18mcg inhaled q daily * Solumedrol 40mg IV Q12H * Robotussin w codeine 5ml POq6h PRN cough Imaging: * Chest xray (01/08/18): persistent linear/bandline right apical opacity. The chest xray depiction of the nodular component of this bandlike opacity is less conspicous than suggest on CT * Chest CT (01/09/18): Chronic appearing scarring changes right lung apex associated with dystrophic type calcification which appears stable however previously noted soft tissue in the medial lung diminished in size. There is a new localized area of pleural thickening with what may represent lobular parenchymal atelectasis left lung apex. Additional scarring changes seen in the lateral aspect right upper lobe, both lung bases and middle lobe/lingular regions. Mild emphysematous changes. There are 2 small to medium-sized mediastinal lymph nodes. Cardiomegaly. Cholecystectomy. * ABG: pH 7.41; HCO3 121; CO2 37 * Ordered for Legionella urine: negative, Mycoplasma IgM: negative, Strep pneumoniae, influenza A is negative 2) Chest Pain--->resolved Hx of Coronary Artery Disease + Stent Assessment/Plan * Cardiology consult on board Dr. Hernandez->help appreciated * YADIRA X3: negative * elevated probnp * Echocardiogram (01/11/18): left ventricle systolic function is normal. EF: 65-70 %. diastolic dysfunction. No aortic regurgitation is present. No mitral valve regurgitation noted. trace tricupsid regurtation. no pulmonary hypertension. mild pulmonic valvular regurgitation * ASA 81 mg PO QDaily * Crestor 5 mg PO HS * Norvasc 10 mg PO daily * Losartan 25 mg daily * Lasix 20 mg IVP daily * beta-veronique contraindicated in light of hx of COPD side effect: bronchospasm 3) Leukocytosis Assessment/Plan: * Blood cultures (01/08/18); no growth after 24 hours * Afebrile * Urine culture (01/09/18): no growth * Chest xray (01/08/18): persistent linear/bandline right apical opacity. The chest xray depiction of the nodular component of this bandllike opacity is less conspicous than suggest on CT * Chest CT (01/09/18): Chronic appearing scarring changes right lung apex associated with dystrophic type calcification which appears stable however previously noted soft tissue in the medial lung diminished in size. There is a new localized area of pleural thickening with what may represent lobular parenchymal atelectasis left lung apex. Additional scarring changes seen in the lateral aspect right upper lobe, both lung bases and middle lobe/lingular regions. Mild emphysematous changes. There are 2 small to medium-sized mediastinal lymph nodes. Cardiomegaly. Cholecystectomy. * Patient is on IV steroids. 4) History of Anemia Assessment/Plan: * Monitor H/H * hgb: 9.1 5) Constipation-->resolved Assessment/Plan: * Monitor for bowel movement * Has had bowel movement 5) History of Diabetes mellitus Assessment/Plan: * Hemoglobin A1C: 7.1 (10/04/17) * Accuchecks QAC and HS * ISS - low dose * Hypoglycemia protocol * Novolin 70/30 20 units subq ACB * Novolin 70/30 8 units subq ACBD * Lantus 10 units subqHS * Cozaar 25mg PO daily 6) History of Hypertension Assessment/Plan: * Norvasc 10 mg PO daily * Losartan 25 mg daily * Lasix 20 mg PO daily 7) History of Anxiety Assessment/Plan: * Xanax 0.25 mg po prn anxiety 8) History of Vertigo Assessment/Plan: * Meclizine 12.5 mg PO BID 9) Acute Renal insufficiency Assessment/Plan: * monitor BUN/Cr * Improved * stage 3 10) Prophylactic measure Assessment/Plan: * SCDs * Lovenox 30 mg SC daily * Pepcid 20 mg PO daily * Heart healthy diet * Ensure x3 * PT eval and treat * Decreasing hearing at left * DNR/DNI
[2018-01-11 15:58] VITALS: PULSE 90; RESP 20; TEMP 98.1; O2SAT 97
[2018-01-11 16:02] VITALS: BP 140/73
== END 2018-01-11 16:36 | disposition home or self-care (01) | DRG 192 ==
LOC: C.ER 15:16 → C.9E 17:30 → C.6T 19:44
PROVIDERS: ADMIT Hospitalist; ATTEND Hospitalist
DX: J44.1 Chronic obstructive pulmonary disease with (acute) exacerbation (principal); E78.00 Pure hypercholesterolemia, unspecified; E11.65 Type 2 diabetes mellitus with hyperglycemia; E86.0 Dehydration; I25.10 Atherosclerotic heart disease of native coronary artery without angina pectoris; I44.7 Left bundle-branch block, unspecified; I51.7 Cardiomegaly; K59.00 Constipation, unspecified; M06.9 Rheumatoid arthritis, unspecified; M81.0 Age-related osteoporosis without current pathological fracture; Z66 Do not resuscitate; Z87.891 Personal history of nicotine dependence; Z95.5 Presence of coronary angioplasty implant and graft; Z99.81 Dependence on supplemental oxygen; I10 Essential (primary) hypertension; F41.9 Anxiety disorder, unspecified; N28.9 Disorder of kidney and ureter, unspecified; Z79.4 Long term (current) use of insulin; R33.9 Retention of urine, unspecified; D64.9 Anemia, unspecified; R42 Dizziness and giddiness

== ENCOUNTER 2018-01-28 04:53 | Inpatient (IN) | payer MEDICARE, MEDICAID ==
--- NOTE | 2018-01-28 04:59 | C.PDOC ---
History Of Present Illness 86 year old female is brought to the ED by EMs for evaluation of midsternal chest pain for the past couple of days. Patient was recently admitted to the Hospital for COPD exacerbation 2-3 weeks ago. Patient is speaking in complete sentences. Patient denies fever, chills, nausea, vomit, SOB. Time Seen by Provider: 01/28/18 04:59 History Per: Patient, EMS History/Exam Limitations: no limitations Onset/Duration Of Symptoms: Days Current Symptoms Are (Timing): Still Present Context: Other Severity: Moderate Pain Scale Rating Of: 4 Quality: "Pain" Associated Symptoms: denies: Nausea, Dyspnea Modifying Factors: None Exacerbating Factors: None Alleviating Factors: None Recent travel outside of the [place]: No Additional History Per: Patient, EMS Past Medical History Reviewed: Historical Data, Nursing Documentation, Vital Signs Vital Signs: Last Vital Signs Temp Pulse 61 01/28/18 05:44 Resp 21 01/28/18 05:01 BP 148/56 L 01/28/18 05:44 Pulse Ox 97 01/28/18 06:26 - Medical History PMH: Anemia, Anxiety, Arthritis (R HIP; BACK), Asthma, Back Problems (HX CHRONIC BACK PAIN), CAD, COPD, Diabetes, Fractures (left wrist AND RT. HIP), Gastritis, HTN, Hypercholesterolemia, Hyperlipidemia, Osteoporosis, Rheumatoid Arthritis Denies: Chronic Kidney Disease, Seizures Surgical History: Coronary Stent (cad cath 02/2016 with stent) - [facility] Procedures APPLICATION OF SPLINT (06/18/14) EXCISION OF ASCENDING COLON, ENDO, DIAGN (12/05/16) EXCISION OF STOMACH, ENDO, DIAGN (12/05/16) FLUOROSCOPY OF LEFT HEART USING LOW OSMOLAR CONTRAST (02/05/16) GAIT TRAINING/AMBULAT TREATMENT USING ASSIST EQUIPMENT (11/08/15) INTRODUCE ANTI-INFLAM IN PERIPH NRV, PLEXI, PERC (11/08/15) INTRODUCE REGIONAL ANESTH IN PERIPH NRV, PLEXI, PERC (11/08/15) MEASURE OF CARDIAC SAMPL & PRESSURE, L HEART, PERC APPROACH (02/05/16) NEBULIZER THERAPY (06/16/14) REPAIR LEFT UPPER ARM TENDON, OPEN APPROACH (11/08/15) REPAIR OF HAMMER TOE (07/17/13) REPOSITION LEFT HUMERAL SHAFT WITH INT FIX, OPEN APPROACH (04/04/16) TRANSFUSE NONAUT RED BLOOD CELLS IN PERIPH VEIN, PERC (12/05/16) Family History: States: Unknown Family Hx - Social History Hx Tobacco Use: No (Quit) Hx Alcohol Use: No Hx Substance Use: No - Immunization History Hx Tetanus Toxoid Vaccination: Yes (3 mos. ago) Hx Influenza Vaccination: No Hx Pneumococcal Vaccination: Yes Review Of Systems Constitutional: Negative for: Fever, Chills Cardiovascular: Positive for: Chest Pain. Negative for: Palpitations Respiratory: Negative for: Cough, Shortness of Breath Gastrointestinal: Negative for: Nausea, Vomiting Genitourinary: Negative for: Dysuria Musculoskeletal: Negative for: Back Pain Skin: Negative for: Rash Neurological: Negative for: Weakness, Numbness, Headache, Dizziness Psych: Negative for: Anxiety Physical Exam - Physical Exam Appears: Non-toxic, No Acute Distress Skin: Warm, Dry Head: Normacephalic Eye(s): bilateral: Normal Inspection Oral Mucosa: Moist Neck: Supple Chest: Symmetrical Cardiovascular: Rhythm Regular Respiratory: No Rales, Rhonchi (scattered), No Wheezing Gastrointestinal/Abdominal: Soft, No Tenderness, No Guarding, No Rebound Back: Normal Inspection Extremity: No Tenderness, No Swelling Extremity: Bilateral: Atraumatic, Normal Color And Temperature, Normal ROM Pulses: Left Dorsalis Pedis: Normal, Right Dorsalis Pedis: Normal Neurological/Psych: Oriented x3, Normal Speech Gait: Steady ED Course And Treatment - Laboratory Results Result Diagrams: 01/28/18 05:47 01/28/18 05:47 ECG: Interpreted By Me, Viewed By Me ECG Rhythm: Sinus Rhythm (56), L BBB, Nonspecific Changes (occ pvc's) O2 Sat by Pulse Oximetry: 97 (ON RA) Pulse Ox Interpretation: Normal - Radiology CXR: Interpreted by Me, Viewed By Me Progress Note: Plan: - EKG. - Labs. - CXR. - Aspirin 324 mg PO. - UA Disposition Counseled Patient/Family Regarding: Studies Performed, Diagnosis - Disposition Disposition Time: 04:59 Condition: FAIR - Clinical Impression Clinical Impression: Chest pain - Scribe Statement The provider has reviewed the documentation as recorded by the Scribe Darren Shen All medical record entries made by the Scribe were at my direction and personally dictated by me. I have reviewed the chart and agree that the record accurately reflects my personal performance of the history, physical exam, medical decision making, and the department course for this patient. I have also personally directed, reviewed, and agree with the discharge instructions and disposition. Physician Patient Turnover Patient Signed Over To: Rita Fernandez Handoff Comments: pending labs and dispostion
[2018-01-28 05:01] VITALS: BMI 22.6
[2018-01-28] MEDS ORDERED: Aspirin 325 mg EC Tablets PO STA (05:01)
[2018-01-28 05:50] LABS: BASO # 0.1 K/uL (0.0-0.2); BASO % 1.1 % (0.0-2.0); EOS # 0.1 K/uL (0.0-0.7); EOS % 1.2 % (0.0-4.0); HEMOGLOBIN 11.9 g/dL (11.0-16.0); LYMPH # 1.5 K/uL (1.0-4.3); LYMPH % 16.3 % (20.0-40.0); MEAN CELL VOLUME 85.5 fL (81.0-99.0); MEAN CORPUSCULAR HEMOGLOBIN 28.2 pg (27.0-31.0); MEAN PLATELET VOLUME 8.7 fL (7.2-11.7); MONO # 0.5 K/uL (0.0-0.8); MONO % 5.8 % (0.0-10.0); NEUT # 7.1 K/uL (1.8-7.0); NEUT % 75.6 % (50.0-75.0); RBC 4.24 Mil/uL (3.80-5.20); RED CELL DISTRIBUTION WIDTH 18.1 % (11.5-14.5); WHITE BLOOD COUNT 9.4 K/uL (4.8-10.8)
[2018-01-28] MEDS ORDERED: Aspirin 325 mg EC Tablets PO ONE (05:59)
[2018-01-28 06:16] LABS: PROTHROMBIN TIME 11.1 SECONDS (9.7-12.2)
[2018-01-28 06:26] LABS: B-TYPE NATRIURETIC PEPTIDE 851 pg/mL (0-900)
[2018-01-28 06:34] LABS: ALB/GLOB RATIO 1.1 (1.0-2.1); ALBUMIN 4.8 g/dL (3.5-5.0); ALT/SGPT 26 U/L (9-52); AST/SGOT 32 U/L (14-36); BLOOD UREA NITROGEN 24 mg/dL (7-17); CALCIUM 9.9 mg/dl (8.6-10.4); GFR AFRICAN-AMERICAN > 60; GFR NON-AFRICAN AMERICAN 53
[2018-01-28] MEDS ORDERED: Dextrose 50% SYRINGE Inj (50 ml) IV STA (06:37)
[2018-01-28] MEDS ORDERED: Dextrose 50% SYRINGE Inj (50 ml) ONE (06:41)
--- NOTE | 2018-01-28 08:43 | CP.PCM.HP ---
History of Present Illness - History of Present Illness History of Present Illness: PGY-[address] Chikis Jean. Mrs Curiel is a 86 year old female with a PMHx of CAD, HTN, DM, gastritis, asthma , arthritis, COPD, anxiety who presents to our ER because of sub-sternal and right-sided chest pain that began early this morning upon waking up. She describes the pain as sharp and pressure-like. She was able to eat breakfast this morning (coffee and cereal) however the chest pain persisted thus she decided to come to the ER. Upon arrival in the ER she was found to by hypoglycemic. She stated she takes all her home medicines as prescribed and that she also took her insulin last night and this morning as prescribed. Additionally, she also complained of arthritic pain most prominent in her left knee. She denied shortness of breath, focal deficits, abdominal pain, fevers, n/ v. PMD: Dr. Gomez Past Medical History: CAD, HTN, DM, gastritis, asthma, arthritis, COPD, anxiety Past Surgical History: hysterectomy and oopherectomy, cataract surgery, Cardiac cath 02/2016 with 2x stents Family History: Mother had asthma, heart disease, at age 92 Medications: 1. tylenol with codeine number 3; ventolin inhaler; xanax 1 mg PO daily; norvasc 10 mg po daily; asa 81 mg daily; brimonidine eye drops; colace 100 mg po daily; nexium; famotidine; ferrous sulfate 325 bid; furosemide 40 daily; insulin 70/30 10 units SC HS; insulin NPH 30 daily; losartan 25 mg daily ; lubiprostone 24 mcg bid; meclizine 12.5 bid; crestor 5 mg po hs Allergies: NKDA Social History: smoked 1ppd x 50 yrs, quit 20 yrs ago; social drinker in the past, denies current use. denies illicit drug use. Patient states she lives part of a home by herself. Code Status: Full Code Contact: Daughter Kira Curiel #[phone] Present on Admission - Present on Admission Any Indicators Present on Admission: No Review of Systems - Constitutional Constitutional: absent: Chills, Fever - EENT Eyes: absent: Blurred Vision - Cardiovascular Cardiovascular: Chest Pain. absent: Diaphoresis, Dyspnea, Palpitations, Syncope - Respiratory Respiratory: absent: Cough, Chest Congestion - Gastrointestinal Gastrointestinal: absent: Abdominal Pain, Bloating, Constipation, Diarrhea, Nausea, Vomiting - Genitourinary Genitourinary: absent: Dysuria - Musculoskeletal Musculoskeletal: Arthralgias - Integumentary Integumentary: absent: Bleeding Lesions Past Patient History - Infectious Disease Hx of Infectious Diseases: None - Tetanus Immunizations Tetanus Immunization: Unknown - Past Medical History & Family History Past Medical History?: Yes - Past Social History Smoking Status: Never Smoked - CARDIAC Hx Hypercholesterolemia: Yes Hx Hypertension: Yes - PULMONARY Hx Asthma: Yes Hx Chronic Obstructive Pulmonary Disease (COPD): Yes - NEUROLOGICAL Hx Seizures: No - HEENT Hx HEENT Problems: Yes Hx Cataracts: Yes (right eye) Hx Glaucoma: Yes (left eye) Other/Comment: [place] LEFT EAR - RENAL Hx Chronic Kidney Disease: No - HEMATOLOGICAL/ONCOLOGICAL Hx Anemia: Yes - INTEGUMENTARY Hx Dermatological Problems: No - MUSCULOSKELETAL/RHEUMATOLOGICAL Hx Arthritis: Yes (R HIP; BACK) Hx Fractures: Yes (left wrist AND RT. HIP) Hx Osteoporosis: Yes Hx Rheumatoid Arthritis: Yes - GASTROINTESTINAL Hx Gastritis: Yes - GENITOURINARY/GYNECOLOGICAL Hx Genitourinary Disorders: Yes Other/Comment: fibroid surgery - PSYCHIATRIC Hx Anxiety: Yes Hx Substance Use: No - SURGICAL HISTORY Hx Coronary Stent: Yes (cad cath 02/2016 with stent) - ANESTHESIA Hx Anesthesia: Yes Hx Anesthesia Reactions: No Hx Malignant Hyperthermia: No Meds Allergies/Adverse Reactions: Allergies Allergy/AdvReac Type Severity Reaction Status Date / Time No Known Allergies Allergy Verified 01/08/18 15:27 Physical Exam - Constitutional Appears: Well, No Acute Distress - Head Exam Head Exam: ATRAUMATIC, NORMAL INSPECTION - Eye Exam Eye Exam: EOMI Pupil Exam: PERRL - ENT Exam ENT Exam: Mucous Membranes Moist - Neck Exam Neck exam: Positive for: Normal Inspection. Negative for: Tenderness - Respiratory Exam Respiratory Exam: Chest Wall Tenderness, Clear to Auscultation Bilateral, NORMAL BREATHING PATTERN. absent: Rales, Rhonchi, Wheezes, Respiratory Distress - Cardiovascular Exam Cardiovascular Exam: REGULAR RHYTHM, +S1, +S2, Systolic Murmur. absent: Bradycardia, Tachycardia, JVD - GI/Abdominal Exam GI & Abdominal Exam: Normal Bowel Sounds, Soft. absent: Distended, Firm, Guarding, Tenderness - Extremities Exam Extremities exam: Positive for: normal capillary refill, normal inspection. Negative for: calf tenderness, joint swelling - Neurological Exam Neurological exam: Alert, Oriented x3 - Psychiatric Exam Psychiatric exam: Normal Affect - Skin Skin Exam: Intact, Normal Color, Warm Results - Vital Signs Recent Vital Signs: Last Vital Signs Temp Pulse 52 L 01/28/18 07:01 Resp 14 01/28/18 07:01 BP 127/46 L 01/28/18 07:01 Pulse Ox 100 01/28/18 07:01 - Labs Result Diagrams: 01/28/18 05:47 01/28/18 05:47 Labs: Laboratory Results - last 24 hr 01/28/18 01/28/18 01/28/18 05:47 05:47 06:01 WBC 9.4 RBC 4.24 Hgb 11.9 D Hct 36.2 MCV 85.5 MCH 28.2 MCHC 33.0 RDW 18.1 H Plt Count 242 MPV 8.7 Neut % (Auto) 75.6 H Lymph % (Auto) 16.3 L [place] % (Auto) 5.8 Eos % (Auto) 1.2 Baso % (Auto) 1.1 Neut # (Auto) 7.1 H Lymph # (Auto) 1.5 [place] # (Auto) 0.5 Eos # (Auto) 0.1 Baso # (Auto) 0.1 PT 11.1 INR 1.0 APTT 36 H Sodium 145 Potassium 3.9 Chloride 107 Carbon Dioxide 21 L Anion Gap 21 H BUN 24 H Creatinine 1.0 Est GFR ( Amer) > 60 Est GFR (Non-Af Amer) 53 POC Glucose (mg/dL) Random Glucose 39 L* D Calcium 9.9 Total Bilirubin 0.5 AST 32 ALT 26 Alkaline Phosphatase 122 Troponin I < 0.0120 NT-Pro-B Natriuret Pep 851 Total Protein 9.0 H Albumin 4.8 Globulin 4.3 H Albumin/Globulin Ratio 1.1 01/28/18 01/28/18 06:35 06:58 WBC RBC Hgb Hct MCV MCH MCHC RDW Plt Count MPV Neut % (Auto) Lymph % (Auto) [place] % (Auto) Eos % (Auto) Baso % (Auto) Neut # (Auto) Lymph # (Auto) [place] # (Auto) Eos # (Auto) Baso # (Auto) PT INR APTT Sodium Potassium Chloride Carbon Dioxide Anion Gap BUN Creatinine Est GFR ( Amer) Est GFR (Non-Af Amer) POC Glucose (mg/dL) 40 L 221 H Random Glucose Calcium Total Bilirubin AST ALT Alkaline Phosphatase Troponin I NT-Pro-B Natriuret Pep Total Protein Albumin Globulin Albumin/Globulin Ratio Assessment & Plan (1) Acute chest pain Assessment and Plan: Troponin x1 NEGATIVE, F/U Troponin Q6H x2 and EKGs x2 Echo 01/2018: EF 65%, diastolic dysfunction, LVSF normal EKG unchanged from prior - LBBB, left axis deviation, no ST elevations/ depressions, non-specific ST changes Consult cardiology, Dr Hernandez - seen by Dr Hernandez on prior admissions Status: Acute Priority: High (2) Hypoglycemia Assessment and Plan: On admission glucise 39 corrected with D50 Accuchecks ACHS See A&P for DM1 Status: Acute Priority: High (3) CAD (coronary artery disease) Assessment and Plan: Cardiac cath in 2015 with 2 stents placed ASA 81mg PO QD Crestor 5mg PO HS No beta-blockers in light of severe COPD Seen by Dr Hernandez on last admission Status: Chronic Priority: High (4) COPD (chronic obstructive pulmonary disease) Assessment and Plan: Saturating normal on room air, speaking in complete sentences On home O2 See extensive radiological workup on last admission Seen by Dr Copeland on last admission Cont home med Spiriva 18mcg 2 INH QD Duoneb Q6H PRN for sob Status: Chronic Priority: Medium (5) Diabetes mellitus Assessment and Plan: Lipid Panel 01/2018: Tri 61, Chol 81, LDL 30, HDL 28 HgbA1c 01/2018: 7.1 Meds: Novolin 70/30 20u SC ACB Novolin 70/30 8u SC ACD Lantus 10u SC HS Above regimen is an adjustment from her home regimen - will check an accucheck at 3AM to make sure patient not hypoglycemic Hypoglycemia protocol Status: Chronic Priority: Medium (6) Hypertension Assessment and Plan: Cont home med norvasc 10mg PO QD Cont home med losartan 25mg PO QD Status: Chronic Priority: Medium (7) Arthritis Assessment and Plan: Tylenol 650mg Q6h PRN Status: Chronic Priority: Medium (8) Anxiety Assessment and Plan: Cont home med xanax 0.25mg PO QD Status: Chronic Priority: Medium (9) Constipation Assessment and Plan: Cont home med colace 100mg PO QD Monitor bowel function Status: Acute Priority: Medium (10) GERD (gastroesophageal reflux disease) Assessment and Plan: No nexium -> protonix 40mg PO QD Status: Acute Priority: Medium (11) Prophylactic measure Assessment and Plan: SCDs Heparin 5000u SC Q8H Heart healthy diet 2g Na moderate consistent diabetic PT/OT eval Glucerna shake x3/day Status: Acute Priority: Low
--- NOTE | 2018-01-28 09:06 | RAD ---
Chest x-ray single frontal view History: Chest pain. Comparison: 01/09/2018 Findings: Biapical pleural thickening with upper lobe granulomatous changes. Diffuse increased interstitial lung markings bilaterally. Curvilinear vertically oriented consolidative opacification seen at the right lung apex with more linear consolidative changes in the right mid lung zone. Tortuous ectatic aorta. Mild cardiomegaly. Degenerative changes in the spine and shoulders. Impression: Biapical pleural thickening with upper lobe granulomatous changes. Diffuse increased interstitial lung markings bilaterally. Curvilinear vertically oriented consolidative opacification seen at the right lung apex with more linear consolidative changes in the right mid lung zone. Tortuous ectatic aorta. Mild cardiomegaly.
[2018-01-28 10:34] LABS: SQUAMOUS EPITHIAL 2 /hpf (0-5); URINE BILIRUBIN NEGATIVE (NEGATIVE); URINE BLOOD NEGATIVE (NEGATIVE); URINE CLARITY Clear (Clear); URINE COLOR Straw (YELLOW); URINE GLUCOSE (UA) 1+ mg/dL (Normal); URINE LEUKOCYTE ESTERASE NEG Leu/uL (Negative); URINE PROTEIN 1+ mg/dL (NEGATIVE); URINE UROBILINOGEN NORMAL mg/dL (0.2-1.0)
[2018-01-28] MEDS ORDERED: Albuterol-Ipratrop 3 mg / 0.5 (3 ml) UD INH PRN (11:00)
[2018-01-28] MEDS ORDERED: Glucagon Recombinant 1 mg Inj IM PRN (11:06)
[2018-01-28] MEDS ORDERED: Dextrose 50% SYRINGE Inj (50 ml) IV PRN (11:06)
[2018-01-28 12:52] LABS: CK-MB 0.98 ng/mL (0.0-3.38)
[2018-01-28] MEDS ORDERED: (Novolin 70/30) NPH/Regular 70/30 Units/ml 10 ml vial SC SCH (16:30)
[2018-01-28 16:45] VITALS: RESP 20
[2018-01-28 20:17] LABS: CK-MB 0.83 ng/mL (0.0-3.38)
[2018-01-28] MEDS ORDERED: (Lantus) Insulin Glargine, Recombinant SC SCH (22:00)
[2018-01-29 07:18] LABS: BASO % 0.7 % (0.0-2.0); EOS # 0.3 K/uL (0.0-0.7); EOS % 4.1 % (0.0-4.0); LYMPH % 32.7 % (20.0-40.0); MEAN CELL VOLUME 85.3 fL (81.0-99.0); MEAN CORPUSCULAR HGB CONC 32.8 g/dL (33.0-37.0); MEAN PLATELET VOLUME 8.6 fL (7.2-11.7); MONO # 0.7 K/uL (0.0-0.8); MONO % 10.9 % (0.0-10.0); NEUT # 3.2 K/uL (1.8-7.0); NEUT % 51.6 % (50.0-75.0); RBC 3.23 Mil/uL (3.80-5.20); RED CELL DISTRIBUTION WIDTH 17.7 % (11.5-14.5); WHITE BLOOD COUNT 6.1 K/uL (4.8-10.8)
[2018-01-29] MEDS ORDERED: (Novolin 70/30) NPH/Regular 70/30 Units/ml 10 ml vial SC SCH (07:30)
[2018-01-29 07:48] LABS: ALB/GLOB RATIO 1.3 (1.0-2.1); ALBUMIN 3.5 g/dL (3.5-5.0); CALCIUM 8.6 mg/dl (8.6-10.4)
[2018-01-29] MEDS ORDERED: POLYETHYLENE GLYCOL 3350 17 GM/Dose PACKET PO ONE (08:00)
[2018-01-29] MEDS ORDERED: Tiotropium 18 mcg Cap For Inhalation INH SCH (08:00)
[2018-01-29] MEDS ORDERED: Pantoprazole 40 mg EC Tab PO SCH (10:00)
--- NOTE | 2018-01-29 10:15 | CP.PCM.PCO ---
Physician Communication Note - Physician Communication Note Physician Communication Note: Please see above.
--- NOTE | 2018-01-29 10:43 | CP.PCM.DIS ---
<Sheree Mitchell - Last Filed: 01/29/18 10:40> Provider - Provider Date of Admission: 01/28/18 07:04 Attending physician: Damon Kearney MD Primary care physician: Dr. Gomez Time Spent in preparation of Discharge (in minutes): 40 Diagnosis - Discharge Diagnosis (1) Chest pain Status: Resolved (2) CAD (coronary artery disease) Status: Chronic (3) Asthma Status: Chronic (4) COPD (chronic obstructive pulmonary disease) Status: Chronic Priority: Medium (5) GERD (gastroesophageal reflux disease) Status: Chronic Priority: Medium (6) Arthritis Status: Chronic Priority: Medium Hospital Course - Lab Results Lab Results: Most Recent Lab Values WBC 6.1 K/uL (4.8-10.8) 01/29/18 07:01 RBC 3.23 Mil/uL (3.80-5.20) L 01/29/18 07:01 Hgb 9.0 g/dL (11.0-16.0) L D 01/29/18 07:01 Hct 27.5 % (34.0-47.0) L 01/29/18 07:01 MCV 85.3 fL (81.0-99.0) 01/29/18 07:01 MCH 28.0 pg (27.0-31.0) 01/29/18 07:01 MCHC 32.8 g/dL (33.0-37.0) L 01/29/18 07:01 RDW 17.7 % (11.5-14.5) H 01/29/18 07:01 Plt Count 192 K/uL (130-400) 01/29/18 07:01 MPV 8.6 fL (7.2-11.7) 01/29/18 07:01 Neut % (Auto) 51.6 % (50.0-75.0) 01/29/18 07:01 Lymph % (Auto) 32.7 % (20.0-40.0) 01/29/18 07:01 [place] % (Auto) 10.9 % (0.0-10.0) H 01/29/18 07:01 Eos % (Auto) 4.1 % (0.0-4.0) H 01/29/18 07:01 Baso % (Auto) 0.7 % (0.0-2.0) 01/29/18 07:01 Neut # (Auto) 3.2 K/uL (1.8-7.0) 01/29/18 07:01 Lymph # (Auto) 2.0 K/uL (1.0-4.3) 01/29/18 07:01 [place] # (Auto) 0.7 K/uL (0.0-0.8) 01/29/18 07:01 Eos # (Auto) 0.3 K/uL (0.0-0.7) 01/29/18 07:01 Baso # (Auto) 0.0 K/uL (0.0-0.2) 01/29/18 07:01 PT 11.1 SECONDS (9.7-12.2) 01/28/18 06:01 INR 1.0 01/28/18 06:01 APTT 36 SECONDS (21-34) H 01/28/18 06:01 Sodium 142 mmol/L (132-148) 01/29/18 07:01 Potassium 4.6 mmol/L (3.6-5.2) 01/29/18 07:01 Chloride 107 mmol/L (98-107) 01/29/18 07:01 Carbon Dioxide 23 mmol/L (22-30) 01/29/18 07:01 Anion Gap 17 (10-20) 01/29/18 07:01 BUN 22 mg/dL (7-17) H 01/29/18 07:01 Creatinine 1.3 mg/dL (0.7-1.2) H 01/29/18 07:01 Est GFR ( Amer) 47 01/29/18 07:01 Est GFR (Non-Af Amer) 39 01/29/18 07:01 POC Glucose (mg/dL) 142 mg/dL (65-110) H 01/29/18 06:00 Random Glucose 129 mg/dL (65-105) H 01/29/18 07:01 Calcium 8.6 mg/dl (8.6-10.4) 01/29/18 07:01 Total Bilirubin 0.4 mg/dL (0.2-1.3) 01/29/18 07:01 AST 22 U/L (14-36) 01/29/18 07:01 ALT 22 U/L (9-52) 01/29/18 07:01 Alkaline Phosphatase 92 U/L (38-126) 01/29/18 07:01 Total Creatine Kinase 40 U/L (30-135) 01/28/18 19:47 CK-MB (Mass) 0.83 ng/mL (0.0-3.38) 01/28/18 19:47 Troponin I < 0.0120 ng/mL (0.00-0.120) 01/28/18 19:47 NT-Pro-B Natriuret Pep 851 pg/mL (0-900) 01/28/18 05:47 Total Protein 6.1 g/dL (6.3-8.3) L 01/29/18 07:01 Albumin 3.5 g/dL (3.5-5.0) D 01/29/18 07:01 Globulin 2.7 gm/dL (2.2-3.9) 01/29/18 07:01 Albumin/Globulin Ratio 1.3 (1.0-2.1) 01/29/18 07:01 Urine Color Straw (YELLOW) 01/28/18 10:09 Urine Clarity Clear (Clear) 01/28/18 10:09 Urine pH 7.0 (5.0-8.0) 01/28/18 10:09 Ur Specific [place] 1.006 (1.003-1.030) 01/28/18 10:09 Urine Protein 1+ mg/dL (NEGATIVE) H 01/28/18 10:09 Urine Glucose (UA) 1+ mg/dL (Normal) 01/28/18 10:09 Urine Ketones Negative mg/dL (NEGATIVE) 01/28/18 10:09 Urine Blood Negative (NEGATIVE) 01/28/18 10:09 Urine Nitrate Negative (NEGATIVE) 01/28/18 10:09 Urine Bilirubin Negative (NEGATIVE) 01/28/18 10:09 Urine Urobilinogen Normal mg/dL (0.2-1.0) 01/28/18 10:09 Ur Leukocyte Esterase Neg Branden/uL (Negative) 01/28/18 10:09 Urine WBC (Auto) 2 /hpf (0-5) 01/28/18 10:09 Urine RBC (Auto) 1 /hpf (0-3) 01/28/18 10:09 Ur Squamous Epith Cells 2 /hpf (0-5) 01/28/18 10:09 - Hospital Course Hospital Course: "Mrs Curiel is a 86 year old female with a PMHx of CAD, HTN, DM, gastritis, asthma , arthritis, COPD, anxiety who presents to our ER because of sub-sternal and right-sided chest pain that began early this morning upon waking up. She describes the pain as sharp and pressure-like. She was able to eat breakfast this morning (coffee and cereal) however the chest pain persisted thus she decided to come to the ER. Upon arrival in the ER she was found to by hypoglycemic. She stated she takes all her home medicines as prescribed and that she also took her insulin last night and this morning as prescribed. Additionally, she also complained of arthritic pain most prominent in her left knee. She denied shortness of breath, focal deficits, abdominal pain, fevers, n/ v." Patient admitted for chest pain to r/o ACS. Troponins were negative x 3. EKGs were unchanged from prior. Echo from 01/08/18 showed EF 65% with diastolic dysfunction. Patient was continued on home meds ASA 81mg PO QD and. Crestor 5mg PO HS. No beta-blockers in light of severe COPD. For patient's COPD patient was continued on Spiriva 18mcg 2 INH QD and given Duoneb Q6H PRN for sob. For patient's DMII , patient was given Novolin 70/30 20u SC ACB, Novolin 70/30 8u SC ACD, Lantus 10u SC HS. Patient's blood pressure was controlled with home meds: norvasc 10mg PO QD and losartan 25mg PO QD. For constipation, patient was continued on her home medication colace 100mg po qd and explained to start drinking prune juice. Upon discharge, patient's chest pain had resolved. Patient will follow up with her PMD, Dr. Gomez. This is a summary of the patient's hospital course, please see chart for details. Discharge Exam - Head Exam Head Exam: ATRAUMATIC, NORMAL INSPECTION, NORMOCEPHALIC - Eye Exam Eye Exam: EOMI, Normal appearance - ENT Exam ENT Exam: Mucous Membranes Moist - Neck Exam Neck exam: Full Rom - Respiratory Exam Respiratory Exam: Clear to PA & Lateral, NORMAL BREATHING PATTERN, UNREMARKABLE - Cardiovascular Exam Cardiovascular Exam: REGULAR RHYTHM, RRR, +S1, +S2 - GI/Abdominal Exam GI & Abdominal Exam: Normal Bowel Sounds, Soft. absent: Distended, Tenderness - Extremities Exam Extremities exam: normal inspection - Neurological Exam Neurological exam: Alert, Oriented x3 - Psychiatric Exam Psychiatric exam: Normal Affect, Normal Mood - Skin Skin Exam: Intact, Normal Color, Warm Discharge Plan - Follow Up Plan Condition: FAIR Disposition: HOME/ ROUTINE Instructions: Acid Reflux (Gastroesophageal Reflux Disease), Adult (DC), Low Blood Sugar, Adult (DC), Chest Pain (DC) Additional Instructions: You stated that you had all of your medications. Please continue to use them as instructed upon your last hospital admission earlier this month: Xanax 1 mg by mouth once daily at lunch time Norvasc 10 mg by mouth once daily at breakfast Aspirin 81 mg by mouth once daily at breakfast Combigan (0.5%/0.2%) 1 drop in each eye twice daily at breakfast and dinner Colace 100 mg by mouth three timer per day at breakfast, lunch and dinner Novolin 70/30 20 units subcutaneously with breakfast Novolin 70/30 8 units subcutaneously with dinner Lantus 10 units subcutaneous at bedtime Crestor 5 mg by mouth once daily at bedtime Amitiza 24 mcg by mouth twice daily Losartan 25 mg by mouth once daily Nexium 40 mg by mouth once daily Advair 50/250 mcg inhaled twice daily Spiriva 1 puff daily Albuterol 90 mcg 2 puffs inhaled every 6 hours as needed for shortness of breath Ferrous sulfate 325 mg by mouth twice daily at breakfast and dinner Calcium citrate 1,200 mg with Vitamin D 800 units everyday in divided doses ( not all at once) over the counter Schedule follow up with your Primary Care Physician Dr. Gomez to take place in the next 7 to 10 days. Make sure to have 8 ounces of prune juice with breakfast to help to soften your stools. Please take care and be well. O declar que meli todos mohit medicamentos. Contine utilizndolos pablo henrique se lo indicaron en sargent ltima hospitalizacin a principios de favio mes: Xanax 1 mg por va oral north vez al da a la hora del almuerzo Norvasc 10 mg por va oral north vez al da en el desayuno Aspirina 81 mg por va oral north vez al da en el desayuno Combigan (0.5% / 0.2%) 1 gota en cada farzad dos veces al da en el desayuno y la certified athletic trainer Colace 100 mg por la boca marissa temporizador por da en el desayuno, el almuerzo y la leslie Novolin 70/30 20 unidades por va subcutnea con desayuno Novolin 70/30 8 unidades por va subcutnea con leslie Lantus 10 unidades subcutneas antes de acostarse Crestor 5 mg por va oral north vez al da antes de acostarse Amitiza 24 mcg por va oral dos veces al da Losartan 25 mg por va oral north vez al da Nexium 40 mg por va oral north vez al da Advair 50/250 mcg inhalado dos veces al da Spiriva 1 inhalacin diaria Albuterol 90 mcg 2 inhalaciones inhaladas cada 6 horas segn sea necesario para la falta de aliento Sulfato ferroso 325 mg por va oral dos veces al da en el desayuno y la certified athletic trainer Citrato de calcio 1,200 mg con Vitamina D 800 unidades diarias en dosis divididas (no todas a la vez) en el mostrador Programe un seguimiento con sargent mdico de atencin primaria, el Dr. Gomez, para que se realice en los prximos 7 a 10 bella. Asegrese de gumaro 8 onzas de jugo de ciruela con el desayuno para ayudar a ablandar mohit heces. Por favor cudate y estate masha. Referrals: Andrew Hernandez MD [Staff Provider] - <Atilio Jean - Last Filed: 01/29/18 20:48> Provider - Provider Date of Admission: 01/28/18 07:04 Attending physician: Damon Kearney MD Hospital Course - Lab Results Lab Results: Most Recent Lab Values WBC 6.1 K/uL (4.8-10.8) 01/29/18 07:01 RBC 3.23 Mil/uL (3.80-5.20) L 01/29/18 07:01 Hgb 9.0 g/dL (11.0-16.0) L D 01/29/18 07:01 Hct 27.5 % (34.0-47.0) L 01/29/18 07:01 MCV 85.3 fL (81.0-99.0) 01/29/18 07:01 MCH 28.0 pg (27.0-31.0) 01/29/18 07:01 MCHC 32.8 g/dL (33.0-37.0) L 01/29/18 07:01 RDW 17.7 % (11.5-14.5) H 01/29/18 07:01 Plt Count 192 K/uL (130-400) 01/29/18 07:01 MPV 8.6 fL (7.2-11.7) 01/29/18 07:01 Neut % (Auto) 51.6 % (50.0-75.0) 01/29/18 07:01 Lymph % (Auto) 32.7 % (20.0-40.0) 01/29/18 07:01 [place] % (Auto) 10.9 % (0.0-10.0) H 01/29/18 07:01 Eos % (Auto) 4.1 % (0.0-4.0) H 01/29/18 07:01 Baso % (Auto) 0.7 % (0.0-2.0) 01/29/18 07:01 Neut # (Auto) 3.2 K/uL (1.8-7.0) 01/29/18 07:01 Lymph # (Auto) 2.0 K/uL (1.0-4.3) 01/29/18 07:01 [place] # (Auto) 0.7 K/uL (0.0-0.8) 01/29/18 07:01 Eos # (Auto) 0.3 K/uL (0.0-0.7) 01/29/18 07:01 Baso # (Auto) 0.0 K/uL (0.0-0.2) 01/29/18 07:01 PT 11.1 SECONDS (9.7-12.2) 01/28/18 06:01 INR 1.0 01/28/18 06:01 APTT 36 SECONDS (21-34) H 01/28/18 06:01 Sodium 142 mmol/L (132-148) 01/29/18 07:01 Potassium 4.6 mmol/L (3.6-5.2) 01/29/18 07:01 Chloride 107 mmol/L (98-107) 01/29/18 07:01 Carbon Dioxide 23 mmol/L (22-30) 01/29/18 07:01 Anion Gap 17 (10-20) 01/29/18 07:01 BUN 22 mg/dL (7-17) H 01/29/18 07:01 Creatinine 1.3 mg/dL (0.7-1.2) H 01/29/18 07:01 Est GFR ( Amer) 47 01/29/18 07:01 Est GFR (Non-Af Amer) 39 01/29/18 07:01 POC Glucose (mg/dL) 231 mg/dL (65-110) H 01/29/18 16:06 Random Glucose 129 mg/dL (65-105) H 01/29/18 07:01 Calcium 8.6 mg/dl (8.6-10.4) 01/29/18 07:01 Total Bilirubin 0.4 mg/dL (0.2-1.3) 01/29/18 07:01 AST 22 U/L (14-36) 01/29/18 07:01 ALT 22 U/L (9-52) 01/29/18 07:01 Alkaline Phosphatase 92 U/L (38-126) 01/29/18 07:01 Total Creatine Kinase 40 U/L (30-135) 01/28/18 19:47 CK-MB (Mass) 0.83 ng/mL (0.0-3.38) 01/28/18 19:47 Troponin I < 0.0120 ng/mL (0.00-0.120) 01/28/18 19:47 NT-Pro-B Natriuret Pep 851 pg/mL (0-900) 01/28/18 05:47 Total Protein 6.1 g/dL (6.3-8.3) L 01/29/18 07:01 Albumin 3.5 g/dL (3.5-5.0) D 01/29/18 07:01 Globulin 2.7 gm/dL (2.2-3.9) 01/29/18 07:01 Albumin/Globulin Ratio 1.3 (1.0-2.1) 01/29/18 07:01 Urine Color Straw (YELLOW) 01/28/18 10:09 Urine Clarity Clear (Clear) 01/28/18 10:09 Urine pH 7.0 (5.0-8.0) 01/28/18 10:09 Ur Specific [place] 1.006 (1.003-1.030) 01/28/18 10:09 Urine Protein 1+ mg/dL (NEGATIVE) H 01/28/18 10:09 Urine Glucose (UA) 1+ mg/dL (Normal) 01/28/18 10:09 Urine Ketones Negative mg/dL (NEGATIVE) 01/28/18 10:09 Urine Blood Negative (NEGATIVE) 01/28/18 10:09 Urine Nitrate Negative (NEGATIVE) 01/28/18 10:09 Urine Bilirubin Negative (NEGATIVE) 01/28/18 10:09 Urine Urobilinogen Normal mg/dL (0.2-1.0) 01/28/18 10:09 Ur Leukocyte Esterase Neg Branden/uL (Negative) 01/28/18 10:09 Urine WBC (Auto) 2 /hpf (0-5) 01/28/18 10:09 Urine RBC (Auto) 1 /hpf (0-3) 01/28/18 10:09 Ur Squamous Epith Cells 2 /hpf (0-5) 01/28/18 10:09 Attending/Attestation - Attestation I have personally seen and examined this patient.: Yes I have fully participated in the care of the patient.: Yes I have reviewed all pertinent clinical information, including history, physical exam and plan: Yes Notes (Text): 01/29/18 20:48 Patient was seen and examined at 8:45 AM Exam, assessment and plan and discharge instructions were gone over with Resident Fredo RosaOTierney
[2018-01-29 13:21] VITALS: PULSE 68
[2018-01-29 15:49] VITALS: BP 130/67; TEMP 98.4; O2SAT 96
--- NOTE | 2018-01-29 19:38 | CARD ---
APPROVED REPORT EKG Measurement Heart [id number] <Conclusion> Sinus bradycardia with occasional premature ventricular complexes Left bundle branch block Abnormal ECG
--- NOTE | 2018-01-29 19:38 | CARD ---
APPROVED REPORT EKG Measurement Heart [id number] <Conclusion> Normal sinus rhythm Left bundle branch block Abnormal ECG
== END 2018-01-29 17:03 | disposition home or self-care (01) | DRG 313 ==
LOC: C.ER 04:53 → C.9E 07:04 → C.5S 11:06
PROVIDERS: ADMIT Internal Medicine; ATTEND Internal Medicine
DX: R07.89 Other chest pain (principal); E78.5 Hyperlipidemia, unspecified; H40.9 Unspecified glaucoma; F41.9 Anxiety disorder, unspecified; I10 Essential (primary) hypertension; I25.10 Atherosclerotic heart disease of native coronary artery without angina pectoris; J44.9 Chronic obstructive pulmonary disease, unspecified; K59.00 Constipation, unspecified; M16.11 Unilateral primary osteoarthritis, right hip; Z79.4 Long term (current) use of insulin; Z95.5 Presence of coronary angioplasty implant and graft; Z99.81 Dependence on supplemental oxygen; E11.9 Type 2 diabetes mellitus without complications

== ENCOUNTER 2018-02-10 03:28 | Inpatient (IN) | payer MEDICARE, MEDICAID ==
[2018-02-10 03:28] VITALS: BMI 22.6
[2018-02-10] MEDS ORDERED: Dextrose 50% SYRINGE Inj (50 ml) IV STA ×2 (04:13→04:46)
[2018-02-10] MEDS ORDERED: Dextrose 50% SYRINGE Inj (50 ml) ONE ×2 (04:17→04:57)
[2018-02-10 04:38] LABS: BASO % 0.4 % (0.0-2.0); EOS # 0.2 K/uL (0.0-0.7); EOS % 2.6 % (0.0-4.0); LYMPH # 1.1 K/uL (1.0-4.3); LYMPH % 15.4 % (20.0-40.0); MEAN CELL VOLUME 87.1 fL (81.0-99.0); MEAN CORPUSCULAR HEMOGLOBIN 28.4 pg (27.0-31.0); MEAN CORPUSCULAR HGB CONC 32.6 g/dL (33.0-37.0); MONO # 1.1 K/uL (0.0-0.8); NEUT # 4.9 K/uL (1.8-7.0); NEUT % 66.6 % (50.0-75.0); RBC 2.81 Mil/uL (3.80-5.20); RED CELL DISTRIBUTION WIDTH 18.7 % (11.5-14.5); WHITE BLOOD COUNT 7.3 K/uL (4.8-10.8)
[2018-02-10 04:54] LABS: ALB/GLOB RATIO 1.2 (1.0-2.1); ALBUMIN 2.9 g/dL (3.5-5.0); ALT/SGPT 42 U/L (9-52); AST/SGOT 28 U/L (14-36); BLOOD UREA NITROGEN 33 mg/dL (7-17); CALCIUM 8.1 mg/dl (8.6-10.4); GFR AFRICAN-AMERICAN 52; GFR NON-AFRICAN AMERICAN 43
--- NOTE | 2018-02-10 05:14 | C.PDOC ---
History Of Present Illness <Shara Ford - Last Filed: 02/10/18 18:44> <Alesha Raymond - Last Filed: 02/13/18 08:47> 86 year old female is brought to the ED by EMS for evaluation. As per son while at home patient was drenched in sweat, cold. Patient's son checked her blood sugar which was around the 100s-200s but he thought the reading was wrong. Patient's son called EMS who came and checked the blood sugar and it was low, son gave some juice and sweet to bring blood sugar up. EMS brought the patient to the ED for evaluation. (Shara Ford) History Per: Patient History/Exam Limitations: None Onset/Duration Of Symptoms: Hrs Onset Of Symptoms: Cannot Confirm Onset Current Symptoms Are (Timing): Still Present Usual Baseline: Unknown Exacerbating Factor(s): Diabetic Use Of Anticoag/Antiplatelets: No Recent travel outside of the [place]: No Additional History Per: Patient Associated Symptoms: Chills, Sweating <Shara Ford - Last Filed: 02/10/18 18:44> <Alesha Raymond - Last Filed: 02/13/18 08:47> Time Seen by Provider: 02/10/18 04:45 Chief Complaint (Nursing): Altered Mental Status Past Medical History Reviewed: Historical Data, Nursing Documentation, Vital Signs - Medical History PMH: Anemia, Anxiety, Arthritis (R HIP; BACK), Asthma, Back Problems (HX CHRONIC BACK PAIN), CAD, COPD, Diabetes, Fractures (left wrist AND RT. HIP), Gastritis, HTN, Hypercholesterolemia, Hyperlipidemia, Osteoporosis, Rheumatoid Arthritis Denies: Chronic Kidney Disease, Seizures Surgical History: Coronary Stent (cad cath 02/2016 with stent) Family History: States: Unknown Family Hx - Social History Hx Tobacco Use: No (Quit) Hx Alcohol Use: No Hx Substance Use: No - Immunization History Hx Tetanus Toxoid Vaccination: Yes (3 mos. ago) Hx Influenza Vaccination: No Hx Pneumococcal Vaccination: Yes <Shara Ford - Last Filed: 02/10/18 18:44> Vital Signs: Last Vital Signs Temp 98.1 F 02/12/18 16:00 Pulse 64 02/12/18 16:00 Resp 20 02/12/18 16:00 BP 154/60 H 02/12/18 16:00 Pulse Ox 98 02/12/18 16:00 - [facility] Procedures APPLICATION OF SPLINT (06/18/14) EXCISION OF ASCENDING COLON, ENDO, DIAGN (12/05/16) EXCISION OF STOMACH, ENDO, DIAGN (12/05/16) FLUOROSCOPY OF LEFT HEART USING LOW OSMOLAR CONTRAST (02/05/16) GAIT TRAINING/AMBULAT TREATMENT USING ASSIST EQUIPMENT (11/08/15) INTRODUCE ANTI-INFLAM IN PERIPH NRV, PLEXI, PERC (11/08/15) INTRODUCE REGIONAL ANESTH IN PERIPH NRV, PLEXI, PERC (11/08/15) MEASURE OF CARDIAC SAMPL & PRESSURE, L HEART, PERC APPROACH (02/05/16) NEBULIZER THERAPY (06/16/14) REPAIR LEFT UPPER ARM TENDON, OPEN APPROACH (11/08/15) REPAIR OF HAMMER TOE (07/17/13) REPOSITION LEFT HUMERAL SHAFT WITH INT FIX, OPEN APPROACH (11/08/15) TRANSFUSE NONAUT RED BLOOD CELLS IN PERIPH VEIN, PERC (12/05/16) Review Of Systems Constitutional: Positive for: Chills, Sweats. Negative for: Fever Cardiovascular: Negative for: Chest Pain, Palpitations Respiratory: Negative for: Cough, Shortness of Breath Gastrointestinal: Negative for: Nausea, Vomiting Skin: Negative for: Rash Neurological: Negative for: Weakness, Numbness <Shara Ford - Last Filed: 02/10/18 18:44> Physical Exam - Physical Exam Appears: Non-toxic, In Acute Distress, Other (somnolent ) Skin: Normal Color, Warm, Dry Head: Atraumatic, Normacephalic Eye(s): bilateral: Normal Inspection Oral Mucosa: Moist Neck: Normal ROM, Supple Chest: Symmetrical Cardiovascular: Rhythm Regular Respiratory: Normal Breath Sounds, No Rales, No Rhonchi, No Wheezing Gastrointestinal/Abdominal: Soft, No Tenderness, No Guarding, No Rebound Extremity: Normal ROM, No Tenderness, Pedal Edema (2+ bilateral ), Capillary Refill (< 2 seconds) Pulses: Left Dorsalis Pedis: Normal, Right Dorsalis Pedis: Normal Neurological/Psych: Oriented x3, Normal Speech Gait: Unable To Assess <Shara Ford - Last Filed: 02/10/18 18:44> ED Course And Treatment - Laboratory Results Result Diagrams: 02/10/18 04:35 02/10/18 04:35 O2 Sat by Pulse Oximetry: 92 <Shara Ford - Last Filed: 02/10/18 18:44> - Laboratory Results Result Diagrams: 02/12/18 07:22 02/12/18 07:22 <Alesha Raymond - Last Filed: 02/13/18 08:47> Medical Decision Making <Shara Ford - Last Filed: 02/10/18 18:44> <Alesha Raymond - Last Filed: 02/13/18 08:47> Medical Decision Making: Impression: hypoglycemia Plan: * EKG * Labs * chronic anemia * Hb 8.0 no different than previous values * electrolytes - unchanged * serum glucose improved from blood sugar on arrival. repeated on the ED with level at 180-190 vs 47 when patient arrived. * Dextrose 50 X2 * Upon reassessment,pts labwork is unremarkable but repeat VS revealed a temp of 92.6We will admit for observation (Shara Ford) Disposition - Disposition Disposition Time: 18:44 <Shara Ford - Last Filed: 02/10/18 18:44> - Disposition Disposition Time: 09:03 <Alesha Raymond - Last Filed: 02/13/18 08:47> - Disposition Disposition: HOSPITALIZED Condition: FAIR - Clinical Impression Clinical Impression: Hypothermia, Hypoglycemia - Scribe Statement The provider has reviewed the documentation as recorded by the Scribe <Shara Ford - Last Filed: 02/10/18 18:44> <Alesha Raymond - Last Filed: 02/13/18 08:47> - Scribe Statement Darren Shen All medical record entries made by the Scribe were at my direction and personally dictated by me. I have reviewed the chart and agree that the record accurately reflects my personal performance of the history, physical exam, medical decision making, and the department course for this patient. I have also personally directed, reviewed, and agree with the discharge instructions and disposition. (Shara Ford) Addendum <Shara Ford - Last Filed: 02/10/18 18:44> <Alesha Raymond - Last Filed: 02/13/18 08:47> Addendum: 02/10/18 07:30 Patient sleepingon stretcher, arousable to verbal stimuli. Hypoglycemic and hypothermic, currently under padmaja hugger. EKG sinus bradycardia 52 bpm, left axis deviatin, LBBB, no acute ST changes (LBBB seen on prior ekg). VBG, YADIRA, UA, TSH ordered. Patient given IVD5NS. As per son, patient does not eat well, only picks at her food - ? cause of hypogylcemia. 02/10/18 08:39 Patient awake & alert, in no distress. Spoke with Hospitalist Dr. Wright, agrees with admission to her service for hypoglycemia. Pending ICU consult from Dr. Harriet Jean. 02/10/18 09:37 Patient evaluated by club manager Dr. Elan Jean, patient ok for telemetry admission. (Alesha Raymond) Decision To Admit <Shara Ford - Last Filed: 02/10/18 18:44> - Pt Status Changed To: Hospital Disposition Of: Inpatient - Admit Certification Admit to Inpatient:: After my assessment, the patient will require hospitalization for at least two midnights. This is because of the severity of symptoms shown, intensity of services needed, and/or the medical risk in this patient being treated as an outpatient. - InPatient: Physician Admission Certification:: SEE NOTES - . Bed Request Type: Telemetry Admitting Physician: Torie Wright <Alesha Raymond - Last Filed: 02/13/18 08:47> - . Patient Diagnosis: Hypothermia, Hypoglycemia
[2018-02-10] MEDS ORDERED: Sodium Chloride 0.9% 500 ML IV ONE (07:08)
[2018-02-10] MEDS ORDERED: Dextrose 5%/0.9% NS 1,000 ML IV ONE (07:42)
[2018-02-10 07:48] LABS: VENOUS BLOOD GAS BASE EXCESS -9.2 mmol/L (0.0-2.0); VENOUS BLOOD GAS PCO2 54 mmHg (40-60); VENOUS BLOOD GAS PO2 30 mm/Hg (30-55); VENOUS BLOOD PH 7.17 (7.32-7.43)
[2018-02-10 08:36] LABS: CK-MB 1.06 ng/mL (0.0-3.38)
--- NOTE | 2018-02-10 08:57 | RAD ---
HISTORY: Sepsis Patient COMPARISON: Comparison chest 01/28/2018 FINDINGS: LUNGS: The Linear fibrosis/ changes seen in the right lung apex with what appears represent mild biapical pleural thickening right greater than left. PLEURA: No significant pleural effusion identified, no pneumothorax apparent. CARDIOVASCULAR: Cardiomegaly OSSEOUS STRUCTURES: No significant abnormalities. VISUALIZED UPPER ABDOMEN: Normal. OTHER FINDINGS: None. IMPRESSION: The Linear fibrosis/ changes seen in the right lung apex with what appears represent mild biapical pleural thickening right greater than left.
[2018-02-10 09:31] LABS: URINE BACTERIA RARE (<OCC); URINE BILIRUBIN NEGATIVE (NEGATIVE); URINE BLOOD NEGATIVE (NEGATIVE); URINE CLARITY Clear (Clear); URINE COLOR Yellow (YELLOW); URINE GLUCOSE (UA) NORMAL (Normal); URINE LEUKOCYTE ESTERASE 1+ Leu/uL (Negative); URINE PROTEIN NEGATIVE (NEGATIVE); URINE UROBILINOGEN NORMAL mg/dL (0.2-1.0)
[2018-02-10] MEDS ORDERED: Piperacillin/Tazobact 3.375 gm 100 ML IVPB ONE (09:41)
[2018-02-10] MEDS: Piperacillin/Tazobact 3.375 GM in Sodium Chloride 100 ML IVPB SCH ×4 (09:57→22:07)
[2018-02-10] MEDS ORDERED: Iohexol 240 (50 ml) ONE (10:09)
[2018-02-10] MEDS ORDERED: Glucagon Recombinant 1 mg Inj IM PRN (10:13)
[2018-02-10] MEDS ORDERED: Dextrose 50% SYRINGE Inj (50 ml) IV PRN (10:13)
[2018-02-10 10:54] LABS: BARBITURATES, UR NEGATIVE (NEGATIVE); PHENCYCLIDINE, UR NEGATIVE (NEGATIVE)
[2018-02-10 11:03] LABS: VENOUS BLOOD GAS BASE EXCESS -7.5 mmol/L (0.0-2.0); VENOUS BLOOD GAS PCO2 48 mmHg (40-60); VENOUS BLOOD GAS PO2 22 mm/Hg (30-55); VENOUS BLOOD PH 7.23 (7.32-7.43)
--- NOTE | 2018-02-10 11:03 | CP.PCM.HP ---
<Jeferson Crocker - Last Filed: 02/10/18 21:12> History of Present Illness - History of Present Illness History of Present Illness: CC "low blood sugar levels this morning" HPI: Patient is a 86 year old female with history of DM, HTN, HLD, CAD s/p coronary stent, COPD, asthma, anemia, anxiety and arthritis, He states that patient woke up in the middle of night at 3AM experiencing sweats, chills, lightheadedness and weakness. EMS was called who checked blood glucose which were in the 40s. She was given 1Amp of D5 in the ED. Son states that she has not been eating well, but has still been taking insulin as directed. She also states that her legs are swollen, and has had some difficulty urinating. She denies pain with urination. She denies chest pain, palpitations, cough, recent infections, recent travel, nausea, vomiting, diarrhea. Her last bowel movement was yesterday morning. She states she last took her medications at 02/09/18 morning. Son Rich Curiel is present at bedside. Daughter Kira Curiel #[phone] PMH: DM, HTN, HLD, CAD, COPD, asthma, anemia, anxiety, arthritis PSH: cardiac cath stents - 02/2016, hysterectomy, oophorectomy, cataract surgery Family History: Mother - asthma, heart disease, at age 92 Medications: 1. tylenol with codeine number 3; ventolin inhaler; xanax 1 mg PO daily; norvasc 10 mg po daily; asa 81 mg daily; brimonidine eye drops; colace 100 mg po daily; nexium; famotidine; ferrous sulfate 325 bid; furosemide 40 daily; insulin 70/30 10 units SC HS; insulin NPH 30 daily; losartan 25 mg daily ; lubiprostone 24 mcg bid; meclizine 12.5 bid; crestor 5 mg po hs Social History: smoked 1ppd x 50 yrs, quit 20 yrs ago; social drinker in the past, denies current use. denies illicit drug use. Patient states she lives part of a home by herself. Allergies: NKDA PMD: Dr. Gomez Present on Admission - Present on Admission Any Indicators Present on Admission: No Review of Systems - Constitutional Constitutional: Chills, Fever, Weakness - Cardiovascular Cardiovascular: absent: Chest Pain, Rapid Heart Rate - Respiratory Respiratory: absent: Cough, Chest Congestion - Gastrointestinal Gastrointestinal: Abdominal Pain, Constipation. absent: Diarrhea - Genitourinary Genitourinary: Difficulty Urinating. absent: Dysuria Past Patient History - Infectious Disease Hx of Infectious Diseases: None - Tetanus Immunizations Tetanus Immunization: Unknown - Past Medical History & Family History Past Medical History?: Yes - Past Social History Smoking Status: Former Smoker - CARDIAC Hx Hypercholesterolemia: Yes Hx Hypertension: Yes - PULMONARY Hx Asthma: Yes Hx Chronic Obstructive Pulmonary Disease (COPD): Yes - NEUROLOGICAL Hx Seizures: No - HEENT Hx HEENT Problems: Yes Hx Cataracts: Yes (right eye) Hx Glaucoma: Yes (left eye) Other/Comment: [place] LEFT EAR - RENAL Hx Chronic Kidney Disease: No - HEMATOLOGICAL/ONCOLOGICAL Hx Anemia: Yes - INTEGUMENTARY Hx Dermatological Problems: No - MUSCULOSKELETAL/RHEUMATOLOGICAL Hx Arthritis: Yes (R HIP; BACK) Hx Fractures: Yes (left wrist AND RT. HIP) Hx Osteoporosis: Yes Hx Rheumatoid Arthritis: Yes - GASTROINTESTINAL Hx Gastritis: Yes - GENITOURINARY/GYNECOLOGICAL Hx Genitourinary Disorders: Yes Other/Comment: fibroid surgery - PSYCHIATRIC Hx Anxiety: Yes Hx Substance Use: No - SURGICAL HISTORY Hx Coronary Stent: Yes (cad cath 02/2016 with stent) - ANESTHESIA Hx Anesthesia: Yes Hx Anesthesia Reactions: No Hx Malignant Hyperthermia: No Meds Allergies/Adverse Reactions: Allergies Allergy/AdvReac Type Severity Reaction Status Date / Time No Known Allergies Allergy Verified 02/10/18 03:44 Physical Exam - Constitutional Appears: No Acute Distress Additional comments: Eyes are closed, under the covers with Tyrell-hugger on - Head Exam Head Exam: ATRAUMATIC, NORMOCEPHALIC - Eye Exam Eye Exam: EOMI - ENT Exam ENT Exam: Mucous Membranes Moist - Respiratory Exam Respiratory Exam: Clear to Auscultation Bilateral, NORMAL BREATHING PATTERN. absent: Rales, Rhonchi, Wheezes - Cardiovascular Exam Cardiovascular Exam: REGULAR RHYTHM, +S1, +S2 - GI/Abdominal Exam GI & Abdominal Exam: Distended, Normal Bowel Sounds. absent: Firm, Hernia, Tenderness - Extremities Exam Extremities exam: Positive for: pedal edema. Negative for: calf tenderness - Skin Skin Exam: Dry, Intact, Warm Results - Vital Signs Recent Vital Signs: Last Vital Signs Temp 98 F 02/10/18 10:59 Pulse 86 02/10/18 10:59 Resp 18 02/10/18 10:59 BP 106/53 L 02/10/18 10:59 Pulse Ox 99 02/10/18 10:59 - Labs Result Diagrams: 02/10/18 04:35 02/10/18 18:33 Labs: Laboratory Results - last 24 hr 02/10/18 02/10/18 02/10/18 03:37 04:13 04:35 WBC 7.3 RBC 2.81 L Hgb 8.0 L Hct 24.4 L MCV 87.1 MCH 28.4 MCHC 32.6 L RDW 18.7 H Plt Count 186 MPV 8.0 Neut % (Auto) 66.6 Lymph % (Auto) 15.4 L Cassia % (Auto) 15.0 H Eos % (Auto) 2.6 Baso % (Auto) 0.4 Neut # (Auto) 4.9 Lymph # (Auto) 1.1 Cassia # (Auto) 1.1 H Eos # (Auto) 0.2 Baso # (Auto) 0.0 pO2 VBG pH VBG pCO2 VBG HCO3 VBG Total CO2 VBG O2 Sat (Calc) VBG Base Excess VBG Potassium Glucose Lactate Crit Value Called To Crit Value Called By Crit Value Read Back Blood Gas Notified Time Sodium Potassium Chloride Carbon Dioxide Anion Gap BUN Creatinine Est GFR ( Amer) Est GFR (Non-Af Amer) POC Glucose (mg/dL) 95 47 L Random Glucose Calcium Total Bilirubin AST ALT Alkaline Phosphatase Total Creatine Kinase CK-MB (Mass) Troponin I NT-Pro-B Natriuret Pep Total Protein Albumin Globulin Albumin/Globulin Ratio TSH 3rd Generation Venous Blood Potassium Urine Color Urine Clarity Urine pH Ur Specific [place] Urine Protein Urine Glucose (UA) Urine Ketones Urine Blood Urine Nitrate Urine Bilirubin Urine Urobilinogen Ur Leukocyte Esterase Urine WBC (Auto) Urine RBC (Auto) Urine Bacteria Urine Yeast (Budding) Urine Methadone Screen Ur Barbiturates Screen Ur Phencyclidine Scrn Ur Amphetamines Screen U Oth Cocaine Metabols U Cannabinoids Screen 02/10/18 02/10/18 02/10/18 04:35 04:45 05:53 WBC RBC Hgb Hct MCV MCH MCHC RDW Plt Count MPV Neut % (Auto) Lymph % (Auto) Cassia % (Auto) Eos % (Auto) Baso % (Auto) Neut # (Auto) Lymph # (Auto) Cassia # (Auto) Eos # (Auto) Baso # (Auto) pO2 VBG pH VBG pCO2 VBG HCO3 VBG Total CO2 VBG O2 Sat (Calc) VBG Base Excess VBG Potassium Glucose Lactate Crit Value Called To Crit Value Called By Crit Value Read Back Blood Gas Notified Time Sodium 140 Potassium 4.3 Chloride 111 H Carbon Dioxide 20 L Anion Gap 14 BUN 33 H Creatinine 1.2 Est GFR ( Amer) 52 Est GFR (Non-Af Amer) 43 POC Glucose (mg/dL) 180 H 114 H Random Glucose 199 H Calcium 8.1 L Total Bilirubin 0.6 AST 28 ALT 42 Alkaline Phosphatase 90 Total Creatine Kinase 51 CK-MB (Mass) 1.06 Troponin I < 0.0120 NT-Pro-B Natriuret Pep Total Protein 5.3 L Albumin 2.9 L Globulin 2.4 Albumin/Globulin Ratio 1.2 TSH 3rd Generation 4.38 Venous Blood Potassium Urine Color Urine Clarity Urine pH Ur Specific [place] Urine Protein Urine Glucose (UA) Urine Ketones Urine Blood Urine Nitrate Urine Bilirubin Urine Urobilinogen Ur Leukocyte Esterase Urine WBC (Auto) Urine RBC (Auto) Urine Bacteria Urine Yeast (Budding) Urine Methadone Screen Ur Barbiturates Screen Ur Phencyclidine Scrn Ur Amphetamines Screen U Oth Cocaine Metabols U Cannabinoids Screen 02/10/18 02/10/18 02/10/18 07:36 08:41 10:01 WBC RBC Hgb Hct MCV MCH MCHC RDW Plt Count MPV Neut % (Auto) Lymph % (Auto) Cassia % (Auto) Eos % (Auto) Baso % (Auto) Neut # (Auto) Lymph # (Auto) Cassia # (Auto) Eos # (Auto) Baso # (Auto) pO2 30 VBG pH 7.17 L* VBG pCO2 54 VBG HCO3 16.2 VBG Total CO2 21.4 L VBG O2 Sat (Calc) 57.8 VBG Base Excess -9.2 L VBG Potassium 4.8 Glucose 100 Lactate 0.8 Crit Value Called To Dr phillips Crit Value Called By Roosevelt rutherford event security officer Crit Value Read Back Y Blood Gas Notified Time 747 Sodium 141.0 Potassium Chloride 113.0 H Carbon Dioxide Anion Gap BUN Creatinine Est GFR ( Amer) Est GFR (Non-Af Amer) POC Glucose (mg/dL) Random Glucose Calcium Total Bilirubin AST ALT Alkaline Phosphatase Total Creatine Kinase CK-MB (Mass) Troponin I NT-Pro-B Natriuret Pep 961 H Total Protein Albumin Globulin Albumin/Globulin Ratio TSH 3rd Generation Venous Blood Potassium 4.8 Urine Color Yellow Urine Clarity Clear Urine pH 5.0 Ur Specific [place] 1.008 Urine Protein Negative Urine Glucose (UA) Normal Urine Ketones Negative Urine Blood Negative Urine Nitrate Negative Urine Bilirubin Negative Urine Urobilinogen Normal Ur Leukocyte Esterase 1+ H Urine WBC (Auto) 6 H Urine RBC (Auto) 5 H Urine Bacteria Rare Urine Yeast (Budding) Few H Urine Methadone Screen Ur Barbiturates Screen Ur Phencyclidine Scrn Ur Amphetamines Screen U Oth Cocaine Metabols U Cannabinoids Screen 02/10/18 10:30 WBC RBC Hgb Hct MCV MCH MCHC RDW Plt Count MPV Neut % (Auto) Lymph % (Auto) Cassia % (Auto) Eos % (Auto) Baso % (Auto) Neut # (Auto) Lymph # (Auto) Cassia # (Auto) Eos # (Auto) Baso # (Auto) pO2 VBG pH VBG pCO2 VBG HCO3 VBG Total CO2 VBG O2 Sat (Calc) VBG Base Excess VBG Potassium Glucose Lactate Crit Value Called To Crit Value Called By Crit Value Read Back Blood Gas Notified Time Sodium Potassium Chloride Carbon Dioxide Anion Gap BUN Creatinine Est GFR ( Amer) Est GFR (Non-Af Amer) POC Glucose (mg/dL) Random Glucose Calcium Total Bilirubin AST ALT Alkaline Phosphatase Total Creatine Kinase CK-MB (Mass) Troponin I NT-Pro-B Natriuret Pep Total Protein Albumin Globulin Albumin/Globulin Ratio TSH 3rd Generation Venous Blood Potassium Urine Color Urine Clarity Urine pH Ur Specific [place] Urine Protein Urine Glucose (UA) Urine Ketones Urine Blood Urine Nitrate Urine Bilirubin Urine Urobilinogen Ur Leukocyte Esterase Urine WBC (Auto) Urine RBC (Auto) Urine Bacteria Urine Yeast (Budding) Urine Methadone Screen Negative Ur Barbiturates Screen Negative Ur Phencyclidine Scrn Negative Ur Amphetamines Screen Negative U Oth Cocaine Metabols Negative U Cannabinoids Screen Negative Assessment & Plan - Assessment and Plan (Free Text) Assessment: 86 year old female with history of DM, HTN, HLD, CAD s/p coronary stent, COPD, asthma, anemia, anxiety and arthritis, evaluated for hypoglycemia and hypothermia. Plan: Assessment/plan Hypothermia Monitor for SIRS Temp 97.5 Blood cultures x2 UA 1+ leuk esterase Urine culture f/u Procalcitonin 0.09 UDS Positive for opiates Lactate 0.8 --> 0.6 --> 0.3 CXR: no infiltrate IV abx - Zosyn 3.375g IV Q8 ICU initially consulted, however no longer ICU candidate after temp normalized to 97.8 CT head No acute intracranial hemorrhage. Moderate to significant diffuse and confluent chronic white matter ischemic changes seen extending from the periventricular into the deep and subcortical regions bilaterally. There is also extension into the white matter tracts both basal nuclei. Moderate - significant generalized volume loss. Symptomatic hypoglycemia Risk factors: insulin dependent diabetic, inconsistent diet, poor oral intake Accucheck Q6 hours D5 NS @ 120cc/hr Cortisol AM Solu-Cortef 50mg IV Q8 Hypoglycemia protocol perioperative educator consult Hypotension/History of hypertension Hold Norvasc, Losartan, Lasix Cortisol level Monitor VS Last took meds 02/09/18 morning CAD, hx of SYMONE Crestor 10mg PO Q HS Not on beta veronique due to history of COPD/hypotension ECHO 01/08/18: EF 65-70% Hx of COPD not acute exacerbation Duonebs RQ6 Advair 250/50 1 puff Q12 Albuterol 3ml Q6 PRN dyspnea Spiriva 18mcg inhaled Q daily Dr. Copeland consulted. ABG pH 7.30 pCO2 41 pO2 179 HCO2 20.4 Maintain O2 sat between 90-92, not at 100% Hyperlipidemia Lipid panel f/u Crestor 10mg PO Q HS Abdominal pain CT abdomen/pelvis PO contrast Small hiatal hernia with slight wall thickening of the distal esophagus likely due to protrusion gastric mucosa. Esophagitis or other intrinsic lesion not excluded. Findings also suggest mild gastroesophageal reflux. Wall thickening of the stomach likely due to incomplete distention. Findings consistent with mild constipation. Marked urinary bladder distention ; rule out urinary retention. Cholecystectomy. See above discussion for additional details and findings Simethicone 80mg QID Reglan 10mg PO Q6 x2 days Urinary retention No anticholinergic medication Hold off on Meclizine Post void residual volume 700cc Lema in place Hx of anemia, chronic H/H runs in 8-9s F/u reticulocyte count, ferritin, iron studies, B12, folate, B12 Hx of anxiety Hold Xanax Seizure precautions due to benzo withdrawal and hypoglycemia Hx of vertigo Hold Meclizine 12.5mg PO BID Acute renal insufficiency BUN/Cr 22/1.1 Prophylactic measures Lovenox 30mg SC daily Pepcid 20mg PO daily Decreased hearing DNR/DNI Pt's daughter Kira Curiel #[phone] TREV Dennis Case discussed with Dr. Wright <Torie Wright V - Last Filed: 02/10/18 22:42> Results - Vital Signs Recent Vital Signs: Last Vital Signs Temp 97.8 F 02/10/18 15:28 Pulse 79 02/10/18 16:06 Resp 20 02/10/18 15:28 BP 131/58 L 02/10/18 15:28 Pulse Ox 92 L 02/10/18 18:45 - Labs Result Diagrams: 02/10/18 04:35 02/10/18 18:33 Labs: Laboratory Results - last 24 hr 02/10/18 02/10/18 02/10/18 03:37 04:13 04:35 WBC 7.3 RBC 2.81 L Hgb 8.0 L Hct 24.4 L MCV 87.1 MCH 28.4 MCHC 32.6 L RDW 18.7 H Plt Count 186 MPV 8.0 Neut % (Auto) 66.6 Lymph % (Auto) 15.4 L Cassia % (Auto) 15.0 H Eos % (Auto) 2.6 Baso % (Auto) 0.4 Neut # (Auto) 4.9 Lymph # (Auto) 1.1 Cassia # (Auto) 1.1 H Eos # (Auto) 0.2 Baso # (Auto) 0.0 Puncture Site pCO2 pO2 HCO3 ABG pH ABG Total CO2 ABG O2 Saturation ABG Base Excess [place] Test ABG Potassium VBG pH VBG pCO2 VBG HCO3 VBG Total CO2 VBG O2 Sat (Calc) VBG Base Excess VBG Potassium A-a O2 Difference Respiratory Index Glucose Lactate Liter Flow FiO2 Crit Value Called To Crit Value Called By Crit Value Read Back Blood Gas Notified Time Sodium Potassium Chloride Carbon Dioxide Anion Gap BUN Creatinine Est GFR ( Amer) Est GFR (Non-Af Amer) POC Glucose (mg/dL) 95 47 L Random Glucose Calcium Iron TIBC % Saturation Total Bilirubin AST ALT Alkaline Phosphatase Total Creatine Kinase CK-MB (Mass) Troponin I NT-Pro-B Natriuret Pep Total Protein Albumin Globulin Albumin/Globulin Ratio Vitamin B12 Folate Procalcitonin TSH 3rd Generation Cortisol AM Sample Arterial Blood Potassium Venous Blood Potassium Urine Color Urine Clarity Urine pH Ur Specific [place] Urine Protein Urine Glucose (UA) Urine Ketones Urine Blood Urine Nitrate Urine Bilirubin Urine Urobilinogen Ur Leukocyte Esterase Urine WBC (Auto) Urine RBC (Auto) Urine Bacteria Urine Yeast (Budding) Urine Opiates Screen Urine Methadone Screen Ur Barbiturates Screen Ur Phencyclidine Scrn Ur Amphetamines Screen U Benzodiazepines Scrn U Oth Cocaine Metabols U Cannabinoids Screen 02/10/18 02/10/18 02/10/18 04:35 04:45 05:53 WBC RBC Hgb Hct MCV MCH MCHC RDW Plt Count MPV Neut % (Auto) Lymph % (Auto) Cassia % (Auto) Eos % (Auto) Baso % (Auto) Neut # (Auto) Lymph # (Auto) Cassia # (Auto) Eos # (Auto) Baso # (Auto) Puncture Site pCO2 pO2 HCO3 ABG pH ABG Total CO2 ABG O2 Saturation ABG Base Excess [place] Test ABG Potassium VBG pH VBG pCO2 VBG HCO3 VBG Total CO2 VBG O2 Sat (Calc) VBG Base Excess VBG Potassium A-a O2 Difference Respiratory Index Glucose Lactate Liter Flow FiO2 Crit Value Called To Crit Value Called By Crit Value Read Back Blood Gas Notified Time Sodium 140 Potassium 4.3 Chloride 111 H Carbon Dioxide 20 L Anion Gap 14 BUN 33 H Creatinine 1.2 Est GFR ( Amer) 52 Est GFR (Non-Af Amer) 43 POC Glucose (mg/dL) 180 H 114 H Random Glucose 199 H Calcium 8.1 L Iron TIBC % Saturation Total Bilirubin 0.6 AST 28 ALT 42 Alkaline Phosphatase 90 Total Creatine Kinase 51 CK-MB (Mass) 1.06 Troponin I < 0.0120 NT-Pro-B Natriuret Pep Total Protein 5.3 L Albumin 2.9 L Globulin 2.4 Albumin/Globulin Ratio 1.2 Vitamin B12 Folate Procalcitonin TSH 3rd Generation 4.38 Cortisol AM Sample Arterial Blood Potassium Venous Blood Potassium Urine Color Urine Clarity Urine pH Ur Specific [place] Urine Protein Urine Glucose (UA) Urine Ketones Urine Blood Urine Nitrate Urine Bilirubin Urine Urobilinogen Ur Leukocyte Esterase Urine WBC (Auto) Urine RBC (Auto) Urine Bacteria Urine Yeast (Budding) Urine Opiates Screen Urine Methadone Screen Ur Barbiturates Screen Ur Phencyclidine Scrn Ur Amphetamines Screen U Benzodiazepines Scrn U Oth Cocaine Metabols U Cannabinoids Screen 02/10/18 02/10/18 02/10/18 07:36 08:41 10:01 WBC RBC Hgb Hct MCV MCH MCHC RDW Plt Count MPV Neut % (Auto) Lymph % (Auto) Cassia % (Auto) Eos % (Auto) Baso % (Auto) Neut # (Auto) Lymph # (Auto) Cassia # (Auto) Eos # (Auto) Baso # (Auto) Puncture Site pCO2 pO2 30 HCO3 ABG pH ABG Total CO2 ABG O2 Saturation ABG Base Excess [place] Test ABG Potassium VBG pH 7.17 L* VBG pCO2 54 VBG HCO3 16.2 VBG Total CO2 21.4 L VBG O2 Sat (Calc) 57.8 VBG Base Excess -9.2 L VBG Potassium 4.8 A-a O2 Difference Respiratory Index Glucose 100 Lactate 0.8 Liter Flow FiO2 Crit Value Called To Dr phillips Crit Value Called By Roosevelt rutherford event security officer Crit Value Read Back Y Blood Gas Notified Time 747 Sodium 141.0 Potassium Chloride 113.0 H Carbon Dioxide Anion Gap BUN Creatinine Est GFR ( Amer) Est GFR (Non-Af Amer) POC Glucose (mg/dL) Random Glucose Calcium Iron TIBC % Saturation Total Bilirubin AST ALT Alkaline Phosphatase Total Creatine Kinase CK-MB (Mass) Troponin I NT-Pro-B Natriuret Pep Total Protein Albumin Globulin Albumin/Globulin Ratio Vitamin B12 Folate Procalcitonin 0.09 L TSH 3rd Generation Cortisol AM Sample Arterial Blood Potassium Venous Blood Potassium 4.8 Urine Color Yellow Urine Clarity Clear Urine pH 5.0 Ur Specific [place] 1.008 Urine Protein Negative Urine Glucose (UA) Normal Urine Ketones Negative Urine Blood Negative Urine Nitrate Negative Urine Bilirubin Negative Urine Urobilinogen Normal Ur Leukocyte Esterase 1+ H Urine WBC (Auto) 6 H Urine RBC (Auto) 5 H Urine Bacteria Rare Urine Yeast (Budding) Few H Urine Opiates Screen Urine Methadone Screen Ur Barbiturates Screen Ur Phencyclidine Scrn Ur Amphetamines Screen U Benzodiazepines Scrn U Oth Cocaine Metabols U Cannabinoids Screen 02/10/18 02/10/18 02/10/18 10:01 10:01 10:30 WBC RBC Hgb Hct MCV MCH MCHC RDW Plt Count MPV Neut % (Auto) Lymph % (Auto) Cassia % (Auto) Eos % (Auto) Baso % (Auto) Neut # (Auto) Lymph # (Auto) Cassia # (Auto) Eos # (Auto) Baso # (Auto) Puncture Site pCO2 pO2 HCO3 ABG pH ABG Total CO2 ABG O2 Saturation ABG Base Excess [place] Test ABG Potassium VBG pH VBG pCO2 VBG HCO3 VBG Total CO2 VBG O2 Sat (Calc) VBG Base Excess VBG Potassium A-a O2 Difference Respiratory Index Glucose Lactate Liter Flow FiO2 Crit Value Called To Crit Value Called By Crit Value Read Back Blood Gas Notified Time Sodium Potassium Chloride Carbon Dioxide Anion Gap BUN Creatinine Est GFR ( Amer) Est GFR (Non-Af Amer) POC Glucose (mg/dL) Random Glucose Calcium Iron TIBC % Saturation Total Bilirubin AST ALT Alkaline Phosphatase Total Creatine Kinase CK-MB (Mass) Troponin I NT-Pro-B Natriuret Pep 961 H Total Protein Albumin Globulin Albumin/Globulin Ratio Vitamin B12 Folate Procalcitonin TSH 3rd Generation 2.88 Cortisol AM Sample 6.5 Arterial Blood Potassium Venous Blood Potassium Urine Color Urine Clarity Urine pH Ur Specific [place] Urine Protein Urine Glucose (UA) Urine Ketones Urine Blood Urine Nitrate Urine Bilirubin Urine Urobilinogen Ur Leukocyte Esterase Urine WBC (Auto) Urine RBC (Auto) Urine Bacteria Urine Yeast (Budding) Urine Opiates Screen Positive H Urine Methadone Screen Negative Ur Barbiturates Screen Negative Ur Phencyclidine Scrn Negative Ur Amphetamines Screen Negative U Benzodiazepines Scrn Positive U Oth Cocaine Metabols Negative U Cannabinoids Screen Negative 02/10/18 02/10/18 02/10/18 10:55 10:59 10:59 WBC RBC Hgb Hct MCV MCH MCHC RDW Plt Count MPV Neut % (Auto) Lymph % (Auto) Cassia % (Auto) Eos % (Auto) Baso % (Auto) Neut # (Auto) Lymph # (Auto) Cassia # (Auto) Eos # (Auto) Baso # (Auto) Puncture Site pCO2 pO2 22 L HCO3 ABG pH ABG Total CO2 ABG O2 Saturation ABG Base Excess [place] Test ABG Potassium VBG pH 7.23 L VBG pCO2 48 VBG HCO3 17.1 VBG Total CO2 21.6 L VBG O2 Sat (Calc) 44.0 VBG Base Excess -7.5 L VBG Potassium 4.8 A-a O2 Difference Respiratory Index Glucose 207 H Lactate 0.6 L Liter Flow FiO2 Crit Value Called To Crit Value Called By Crit Value Read Back Blood Gas Notified Time Sodium 142.0 Potassium Chloride 115.0 H Carbon Dioxide Anion Gap BUN Creatinine Est GFR ( Amer) Est GFR (Non-Af Amer) POC Glucose (mg/dL) Random Glucose Calcium Iron 48 TIBC 309 % Saturation 16 L Total Bilirubin AST ALT Alkaline Phosphatase Total Creatine Kinase CK-MB (Mass) Troponin I NT-Pro-B Natriuret Pep Total Protein Albumin Globulin Albumin/Globulin Ratio Vitamin B12 573 Folate > 20.0 Procalcitonin TSH 3rd Generation Cortisol AM Sample Arterial Blood Potassium Venous Blood Potassium 4.8 Urine Color Urine Clarity Urine pH Ur Specific [place] Urine Protein Urine Glucose (UA) Urine Ketones Urine Blood Urine Nitrate Urine Bilirubin Urine Urobilinogen Ur Leukocyte Esterase Urine WBC (Auto) Urine RBC (Auto) Urine Bacteria Urine Yeast (Budding) Urine Opiates Screen Urine Methadone Screen Ur Barbiturates Screen Ur Phencyclidine Scrn Ur Amphetamines Screen U Benzodiazepines Scrn U Oth Cocaine Metabols U Cannabinoids Screen 02/10/18 02/10/18 02/10/18 11:57 16:20 16:43 WBC RBC Hgb Hct MCV MCH MCHC RDW Plt Count MPV Neut % (Auto) Lymph % (Auto) Cassia % (Auto) Eos % (Auto) Baso % (Auto) Neut # (Auto) Lymph # (Auto) Cassia # (Auto) Eos # (Auto) Baso # (Auto) Puncture Site Rba pCO2 41 pO2 179 H HCO3 20.4 L ABG pH 7.30 L ABG Total CO2 21.5 L ABG O2 Saturation 97.5 ABG Base Excess -5.9 L [place] Test Pos ABG Potassium 4.3 VBG pH VBG pCO2 VBG HCO3 VBG Total CO2 VBG O2 Sat (Calc) VBG Base Excess VBG Potassium A-a O2 Difference -2.0 Respiratory Index 0 Glucose 154 H Lactate 0.3 L Liter Flow 3.0 FiO2 32.0 Crit Value Called To Crit Value Called By Crit Value Read Back Blood Gas Notified Time Sodium 141.0 Potassium Chloride 116.0 H Carbon Dioxide Anion Gap BUN Creatinine Est GFR ( Amer) Est GFR (Non-Af Amer) POC Glucose (mg/dL) 202 H 154 H Random Glucose Calcium Iron TIBC % Saturation Total Bilirubin AST ALT Alkaline Phosphatase Total Creatine Kinase CK-MB (Mass) Troponin I NT-Pro-B Natriuret Pep Total Protein Albumin Globulin Albumin/Globulin Ratio Vitamin B12 Folate Procalcitonin TSH 3rd Generation Cortisol AM Sample Arterial Blood Potassium 4.3 Venous Blood Potassium Urine Color Urine Clarity Urine pH Ur Specific [place] Urine Protein Urine Glucose (UA) Urine Ketones Urine Blood Urine Nitrate Urine Bilirubin Urine Urobilinogen Ur Leukocyte Esterase Urine WBC (Auto) Urine RBC (Auto) Urine Bacteria Urine Yeast (Budding) Urine Opiates Screen Urine Methadone Screen Ur Barbiturates Screen Ur Phencyclidine Scrn Ur Amphetamines Screen U Benzodiazepines Scrn U Oth Cocaine Metabols U Cannabinoids Screen 02/10/18 18:33 WBC RBC Hgb Hct MCV MCH MCHC RDW Plt Count MPV Neut % (Auto) Lymph % (Auto) Cassia % (Auto) Eos % (Auto) Baso % (Auto) Neut # (Auto) Lymph # (Auto) Cassia # (Auto) Eos # (Auto) Baso # (Auto) Puncture Site pCO2 pO2 HCO3 ABG pH ABG Total CO2 ABG O2 Saturation ABG Base Excess [place] Test ABG Potassium VBG pH VBG pCO2 VBG HCO3 VBG Total CO2 VBG O2 Sat (Calc) VBG Base Excess VBG Potassium A-a O2 Difference Respiratory Index Glucose Lactate Liter Flow FiO2 Crit Value Called To Crit Value Called By Crit Value Read Back Blood Gas Notified Time Sodium 143 Potassium 4.8 Chloride 112 H Carbon Dioxide 20 L Anion Gap 15 BUN 22 H Creatinine 1.1 Est GFR ( Amer) 57 Est GFR (Non-Af Amer) 47 POC Glucose (mg/dL) Random Glucose 151 H Calcium 8.4 L Iron TIBC % Saturation Total Bilirubin AST ALT Alkaline Phosphatase Total Creatine Kinase CK-MB (Mass) Troponin I NT-Pro-B Natriuret Pep Total Protein Albumin Globulin Albumin/Globulin Ratio Vitamin B12 Folate Procalcitonin TSH 3rd Generation Cortisol AM Sample Arterial Blood Potassium Venous Blood Potassium Urine Color Urine Clarity Urine pH Ur Specific [place] Urine Protein Urine Glucose (UA) Urine Ketones Urine Blood Urine Nitrate Urine Bilirubin Urine Urobilinogen Ur Leukocyte Esterase Urine WBC (Auto) Urine RBC (Auto) Urine Bacteria Urine Yeast (Budding) Urine Opiates Screen Urine Methadone Screen Ur Barbiturates Screen Ur Phencyclidine Scrn Ur Amphetamines Screen U Benzodiazepines Scrn U Oth Cocaine Metabols U Cannabinoids Screen Attending/Attestation - Attestation I have personally seen and examined this patient.: Yes I have fully participated in the care of the patient.: Yes I have reviewed all pertinent clinical information: Yes Notes (Text): Patient seen, examined, and case discussed with day-time resident. Patient seen this morning in the ED accompanied by her son at bedside. Patient is lying underneath a bearhugger because of hypothermia. patient is conversant and hard of hearing over the left ear which is not new. Patient is well known to the hospitalist service. Patient noted to have symptomatic hypoglycemia early this morning. Patient has not been eating her food consistently because she is a picky eater. Patient reports she takes her insulin every day even if she does not eat well. Patient has had recent hospitalizations due to uncontrolled sugar. Patient was seen and evaluated by ICU, given temperature has normalized, stable for telemetry. Reviewed CT head and CT abdomen/pelvis. Patient has noted urinary retention; stopped antivert; ordered for bladder scan confirmed urinary retention; insert lema. Discussed Admitting orders with day-time resident and assessment and plan. patient has prior POLST noted in EMR wherein she is DNR/DNI, which was confirmed on admission. Assessment/Plan 1) Hypothermia Assessment/Plan * Monitor for SIRS * Temp 97.5 * Blood cultures x2 (02/10/18) * UA 1+ leuk esterase * Urine culture (02/10/18) * Procalcitonin 0.09 * UDS Positive for opiates * Unclear why? is not on opioids at home * Lactate 0.8 --> 0.6 --> 0.3 * CXR: no infiltrate * IV abx * Zosyn 3.375g IV Q8H (active since 02/10/18) * ICU initially consulted-->stable for telemetry; temperature improved * CT head (02/10/18): No acute intracranial hemorrhage. Moderate to significant diffuse and confluent chronic white matter ischemic changes seen extending from the periventricular into the deep and subcortical regions bilaterally. There is also extension into the white matter tracts both basal nuclei. Moderate - significant generalized volume loss. 2) Symptomatic hypoglycemia Assessment/Plan * Risk factors: insulin dependent diabetic, inconsistent diet, poor oral intake * Accucheck Q6 hours * D5 NS @ 120cc/hr; completed * Cortisol AM * Solu-Cortef 50mg IV Q8 * Hypoglycemia protocol * perioperative educator consult 3) Hypotension History of hypertension Assessment/Plan * Hold Norvasc, Losartan, Lasix on admission until blood pressure improves * Cortisol level * Monitor VS * Last took meds 02/09/18 morning 4) CAD, hx of SYMONE Assessment/Plan * Crestor 10mg PO Q HS * Not on beta veronique due to history of COPD/hypotension * Hold Norvasc, Losartan, Lasix on admission until blood pressure improves * ECHO 01/08/18: EF 65-70% 5) Hx of COPD Assessment/Plan * not acute exacerbation * Advair 250/50 1 puff Q12 * Albuterol 3ml Q6 PRN dyspnea * Spiriva 18mcg inhaled Q daily * Patient seens outpatient Dr. Copeland; he is not consulted at this time. * Patient has had CT Chest completed recently given abnormal chest xray * ABG pH 7.30 pCO2 41 pO2 179 HCO2 20.4 * Maintain O2 sat between 90-92, not at 100% 6) Hyperlipidemia Assessment/Plan * Lipid panel f/u * Crestor 10mg PO Q HS 7) Abdominal pain Urinary Retention Assessment/Plan * CT abdomen/pelvis PO contrast Small hiatal hernia with slight wall thickening of the distal esophagus likely due to protrusion gastric mucosa. Esophagitis or other intrinsic lesion not excluded. Findings also suggest mild gastroesophageal reflux. Wall thickening of the stomach likely due to incomplete distention. * Findings consistent with mild constipation. Marked urinary bladder distention ; rule out urinary retention. Cholecystectomy. 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 8) Urinary retention Assessment/Plan * No anticholinergic medication * Hold off on Meclizine * Post void residual volume 700cc * Lema in place 9) Hx of anemia, chronic Assessment/Plan * H/H runs in 8-9s * F/u reticulocyte count, ferritin, iron studies, B12, folate, B12 10) Hx of anxiety Assessment/Plan * Hold Xanax-->reassess in the morning to determine to restart Xanax * Seizure precautions due to benzo withdrawal and hypoglycemia 11) Hx of vertigo Assessment/Plan * Hold Meclizine 12.5mg PO BID 12) Acute renal insufficiency (stage 3) Assessment/Plan * BUN/Cr 22/1.1 13) Prophylactic measures * Lovenox 30mg SC daily * Pepcid 20mg PO daily * Decreased hearing over left ear * DNR/DNI * Pt's daughter Kira Curiel #[phone] point of contact * PT/OT faheem
[2018-02-10 11:12] LABS: BENZODIAZEPINES, UR POSITIVE (NEGATIVE); OPIATES, UR POSITIVE (NEGATIVE)
[2018-02-10 11:25] LABS: TOTAL IRON BINDING CAPACITY 309 ug/dL (250-450)
[2018-02-10 11:26] LABS: % IRON SATURATION 16 (20-55); IRON 48 ug/dL (37-170)
[2018-02-10] MEDS: Enoxaparin 30 mg Syringe SC SCH (11:29)
--- NOTE | 2018-02-10 11:42 | CT ---
PROCEDURE: CT HEAD WITHOUT CONTRAST. HISTORY: Evaluate thalamus COMPARISON: None available. Comparison made with CT scan brain 03/19/2017 TECHNIQUE: Axial computed tomography images were obtained through the head/brain without intravenous contrast. Radiation dose: Total exam DLP = 1315.26 mGy-cm. This CT exam was performed using one or more of the following dose reduction techniques: Automated exposure control, adjustment of the mA and/or kV according to patient size, and/or use of iterative reconstruction technique. FINDINGS: HEMORRHAGE: No acute parenchymal, subarachnoid or extra-axial hemorrhage. BRAIN: Moderate to significant diffuse and confluent chronic white matter ischemic changes seen extending from the periventricular into the deep and subcortical regions bilaterally. The there is also extension into the white matter tracts both basal nuclei. No obvious parenchymal nor extra-axial mass or collection seen on this noncontrast study Moderate - significant generalized volume loss. Vascular calcifications both carotid siphons VENTRICLES: No obstructive hydrocephalus. CALVARIUM: Unremarkable. PARANASAL SINUSES: Moderate mucosal thickening left maxillary antrum with mild mucosal thickening right maxillary antrum. Minor mucosal thickening seen within several ethmoid air cells. . MASTOID AIR CELLS: There is opacification of multiple left inferior mastoid air cells. OTHER FINDINGS: Changes of bilateral cataract surgery IMPRESSION: No acute intracranial hemorrhage. Moderate to significant diffuse and confluent chronic white matter ischemic changes seen extending from the periventricular into the deep and subcortical regions bilaterally. There is also extension into the white matter tracts both basal nuclei. . Moderate - significant generalized volume loss.
--- NOTE | 2018-02-10 11:56 | CP.PCM.CON ---
History of Present Illness - History of Present Illness History of Present Illness: 86 Y/O FEMALE WITH pmx of DM, COPD, heart failure presents to [facility] after found to have AMS with diaphoresis. PAtient's blood sugar was low. Patient was given d50 and patient's blood sugar in ER was more than 100. Patient seen and examined at bedside. Patient has no specific complaints Patient notes she takes xanax. Son at bedside not able to provide any medical list and advised ICU team to look at patient's daughter's records for medications. -Patient has no fevers, no chest pain, denies any abdominal pain. Patient denies any blurry vision. Past Patient History - Infectious Disease Hx of Infectious Diseases: None - Tetanus Immunizations Tetanus Immunization: Unknown - Past Medical History & Family History Past Medical History?: Yes - Past Social History Smoking Status: Former Smoker - CARDIAC Hx Hypercholesterolemia: Yes Hx Hypertension: Yes - PULMONARY Hx Asthma: Yes Hx Chronic Obstructive Pulmonary Disease (COPD): Yes - NEUROLOGICAL Hx Seizures: No - HEENT Hx HEENT Problems: Yes Hx Cataracts: Yes (right eye) Hx Glaucoma: Yes (left eye) Other/Comment: LOWER [place] LEFT EAR - RENAL Hx Chronic Kidney Disease: No - HEMATOLOGICAL/ONCOLOGICAL Hx Anemia: Yes - INTEGUMENTARY Hx Dermatological Problems: No - MUSCULOSKELETAL/RHEUMATOLOGICAL Hx Arthritis: Yes (R HIP; BACK) Hx Fractures: Yes (left wrist AND RT. HIP) Hx Osteoporosis: Yes Hx Rheumatoid Arthritis: Yes - GASTROINTESTINAL Hx Gastritis: Yes - GENITOURINARY/GYNECOLOGICAL Hx Genitourinary Disorders: Yes Other/Comment: fibroid surgery - PSYCHIATRIC Hx Anxiety: Yes Hx Substance Use: No - SURGICAL HISTORY Hx Coronary Stent: Yes (cad cath 02/2016 with stent) - ANESTHESIA Hx Anesthesia: Yes Hx Anesthesia Reactions: No Hx Malignant Hyperthermia: No Meds Allergies/Adverse Reactions: Allergies Allergy/AdvReac Type Severity Reaction Status Date / Time No Known Allergies Allergy Verified 02/10/18 03:44 - Medications Medications: Current Medications Albuterol/Ipratropium (Duoneb 3 Mg/0.5 Mg (3 Ml) Ud) 3 ml INH RQ6 I[facility]AN Dextrose (Dextrose 50% Inj) 0 ml IV STAT PRN; Protocol PRN Reason: Hypoglycemia Protocol Dextrose (Glutose 15) 15 gm PO ONCE PRN; Protocol PRN Reason: Hypoglycemia Protocol Enoxaparin Sodium (Lovenox) 30 mg SC DAILY I[facility]AN Last Admin: 02/10/18 11:29 Dose: 30 mg Famotidine (Pepcid) 20 mg PO DAILY I[facility]AN Glucagon (Glucagen Diagnostic Kit) 1 mg IM STAT PRN; Protocol PRN Reason: Hypoglycemia Protocol Hydrocortisone Sodium Succinate (Solu-Cortef) 50 mg IV Q8H I[facility]AN Dextrose/Sodium Chloride (Dextrose 5%/0.9% Ns 1000 Ml) 1,000 mls @ 120 mls/hr IV .Q8H20M ONE Stop: 02/10/18 16:01 Last Admin: 02/10/18 09:26 Dose: 120 mls/hr Piperacillin Sod/Tazobactam (Sod 3.375 gm/ Sodium Chloride) 100 mls @ 200 mls/ hr IVPB Q6H I[facility]AN PRN Reason: Protocol Last Admin: 02/10/18 10:27 Dose: Not Given Dextrose (Dextrose 5% In Water 1000 Ml) 1,000 mls @ 0 mls/hr IV .Q0M PRN; Protocol; Per Protocol PRN Reason: Hypoglycemia Protocol Meclizine HCl (Antivert) 12.5 mg PO BID I[facility]AN Metoclopramide HCl (Reglan) 5 mg PO Q6 I[facility] Rosuvastatin Calcium (Crestor) 10 mg PO HS I[facility]AN Simethicone (Mylicon Chew Tab) 80 mg PO QID I[facility]AN Results - Vital Signs Recent Vital Signs: Last Vital Signs Temp 98 F 02/10/18 11:17 Pulse 86 02/10/18 10:59 Resp 18 02/10/18 10:59 BP 106/53 L 02/10/18 10:59 Pulse Ox 99 02/10/18 10:59 - Labs Result Diagrams: 02/10/18 04:35 02/10/18 18:33 Labs: Laboratory Results - last 24 hr 02/10/18 02/10/18 02/10/18 03:37 04:13 04:35 WBC 7.3 RBC 2.81 L Hgb 8.0 L Hct 24.4 L MCV 87.1 MCH 28.4 MCHC 32.6 L RDW 18.7 H Plt Count 186 MPV 8.0 Neut % (Auto) 66.6 Lymph % (Auto) 15.4 L [place] % (Auto) 15.0 H Eos % (Auto) 2.6 Baso % (Auto) 0.4 Neut # (Auto) 4.9 Lymph # (Auto) 1.1 [place] # (Auto) 1.1 H Eos # (Auto) 0.2 Baso # (Auto) 0.0 pO2 VBG pH VBG pCO2 VBG HCO3 VBG Total CO2 VBG O2 Sat (Calc) VBG Base Excess VBG Potassium Glucose Lactate Crit Value Called To Crit Value Called By Crit Value Read Back Blood Gas Notified Time Sodium Potassium Chloride Carbon Dioxide Anion Gap BUN Creatinine Est GFR ( Amer) Est GFR (Non-Af Amer) POC Glucose (mg/dL) 95 47 L Random Glucose Calcium Iron TIBC % Saturation Total Bilirubin AST ALT Alkaline Phosphatase Total Creatine Kinase CK-MB (Mass) Troponin I NT-Pro-B Natriuret Pep Total Protein Albumin Globulin Albumin/Globulin Ratio TSH 3rd Generation Cortisol AM Sample Venous Blood Potassium Urine Color Urine Clarity Urine pH Ur Specific [place] Urine Protein Urine Glucose (UA) Urine Ketones Urine Blood Urine Nitrate Urine Bilirubin Urine Urobilinogen Ur Leukocyte Esterase Urine WBC (Auto) Urine RBC (Auto) Urine Bacteria Urine Yeast (Budding) Urine Opiates Screen Urine Methadone Screen Ur Barbiturates Screen Ur Phencyclidine Scrn Ur Amphetamines Screen U Benzodiazepines Scrn U Oth Cocaine Metabols U Cannabinoids Screen 02/10/18 02/10/18 02/10/18 04:35 04:45 05:53 WBC RBC Hgb Hct MCV MCH MCHC RDW Plt Count MPV Neut % (Auto) Lymph % (Auto) [place] % (Auto) Eos % (Auto) Baso % (Auto) Neut # (Auto) Lymph # (Auto) [place] # (Auto) Eos # (Auto) Baso # (Auto) pO2 VBG pH VBG pCO2 VBG HCO3 VBG Total CO2 VBG O2 Sat (Calc) VBG Base Excess VBG Potassium Glucose Lactate Crit Value Called To Crit Value Called By Crit Value Read Back Blood Gas Notified Time Sodium 140 Potassium 4.3 Chloride 111 H Carbon Dioxide 20 L Anion Gap 14 BUN 33 H Creatinine 1.2 Est GFR ( Amer) 52 Est GFR (Non-Af Amer) 43 POC Glucose (mg/dL) 180 H 114 H Random Glucose 199 H Calcium 8.1 L Iron TIBC % Saturation Total Bilirubin 0.6 AST 28 ALT 42 Alkaline Phosphatase 90 Total Creatine Kinase 51 CK-MB (Mass) 1.06 Troponin I < 0.0120 NT-Pro-B Natriuret Pep Total Protein 5.3 L Albumin 2.9 L Globulin 2.4 Albumin/Globulin Ratio 1.2 TSH 3rd Generation 4.38 Cortisol AM Sample Venous Blood Potassium Urine Color Urine Clarity Urine pH Ur Specific [place] Urine Protein Urine Glucose (UA) Urine Ketones Urine Blood Urine Nitrate Urine Bilirubin Urine Urobilinogen Ur Leukocyte Esterase Urine WBC (Auto) Urine RBC (Auto) Urine Bacteria Urine Yeast (Budding) Urine Opiates Screen Urine Methadone Screen Ur Barbiturates Screen Ur Phencyclidine Scrn Ur Amphetamines Screen U Benzodiazepines Scrn U Oth Cocaine Metabols U Cannabinoids Screen 02/10/18 02/10/18 02/10/18 07:36 08:41 10:01 WBC RBC Hgb Hct MCV MCH MCHC RDW Plt Count MPV Neut % (Auto) Lymph % (Auto) [place] % (Auto) Eos % (Auto) Baso % (Auto) Neut # (Auto) Lymph # (Auto) [place] # (Auto) Eos # (Auto) Baso # (Auto) pO2 30 VBG pH 7.17 L* VBG pCO2 54 VBG HCO3 16.2 VBG Total CO2 21.4 L VBG O2 Sat (Calc) 57.8 VBG Base Excess -9.2 L VBG Potassium 4.8 Glucose 100 Lactate 0.8 Crit Value Called To Dr phillips Crit Value Called By Roosevelt rutherford e commerce web developer Crit Value Read Back Y Blood Gas Notified Time 747 Sodium 141.0 Potassium Chloride 113.0 H Carbon Dioxide Anion Gap BUN Creatinine Est GFR ( Amer) Est GFR (Non-Af Amer) POC Glucose (mg/dL) Random Glucose Calcium Iron TIBC % Saturation Total Bilirubin AST ALT Alkaline Phosphatase Total Creatine Kinase CK-MB (Mass) Troponin I NT-Pro-B Natriuret Pep 961 H Total Protein Albumin Globulin Albumin/Globulin Ratio TSH 3rd Generation 2.88 Cortisol AM Sample Venous Blood Potassium 4.8 Urine Color Yellow Urine Clarity Clear Urine pH 5.0 Ur Specific [place] 1.008 Urine Protein Negative Urine Glucose (UA) Normal Urine Ketones Negative Urine Blood Negative Urine Nitrate Negative Urine Bilirubin Negative Urine Urobilinogen Normal Ur Leukocyte Esterase 1+ H Urine WBC (Auto) 6 H Urine RBC (Auto) 5 H Urine Bacteria Rare Urine Yeast (Budding) Few H Urine Opiates Screen Urine Methadone Screen Ur Barbiturates Screen Ur Phencyclidine Scrn Ur Amphetamines Screen U Benzodiazepines Scrn U Oth Cocaine Metabols U Cannabinoids Screen 02/10/18 02/10/18 02/10/18 10:01 10:30 10:55 WBC RBC Hgb Hct MCV MCH MCHC RDW Plt Count MPV Neut % (Auto) Lymph % (Auto) [place] % (Auto) Eos % (Auto) Baso % (Auto) Neut # (Auto) Lymph # (Auto) [place] # (Auto) Eos # (Auto) Baso # (Auto) pO2 22 L VBG pH 7.23 L VBG pCO2 48 VBG HCO3 17.1 VBG Total CO2 21.6 L VBG O2 Sat (Calc) 44.0 VBG Base Excess -7.5 L VBG Potassium 4.8 Glucose 207 H Lactate 0.6 L Crit Value Called To Crit Value Called By Crit Value Read Back Blood Gas Notified Time Sodium 142.0 Potassium Chloride 115.0 H Carbon Dioxide Anion Gap BUN Creatinine Est GFR ( Amer) Est GFR (Non-Af Amer) POC Glucose (mg/dL) Random Glucose Calcium Iron TIBC % Saturation Total Bilirubin AST ALT Alkaline Phosphatase Total Creatine Kinase CK-MB (Mass) Troponin I NT-Pro-B Natriuret Pep Total Protein Albumin Globulin Albumin/Globulin Ratio TSH 3rd Generation Cortisol AM Sample 6.5 Venous Blood Potassium 4.8 Urine Color Urine Clarity Urine pH Ur Specific [place] Urine Protein Urine Glucose (UA) Urine Ketones Urine Blood Urine Nitrate Urine Bilirubin Urine Urobilinogen Ur Leukocyte Esterase Urine WBC (Auto) Urine RBC (Auto) Urine Bacteria Urine Yeast (Budding) Urine Opiates Screen Positive H Urine Methadone Screen Negative Ur Barbiturates Screen Negative Ur Phencyclidine Scrn Negative Ur Amphetamines Screen Negative U Benzodiazepines Scrn Positive U Oth Cocaine Metabols Negative U Cannabinoids Screen Negative 02/10/18 10:59 WBC RBC Hgb Hct MCV MCH MCHC RDW Plt Count MPV Neut % (Auto) Lymph % (Auto) [place] % (Auto) Eos % (Auto) Baso % (Auto) Neut # (Auto) Lymph # (Auto) [place] # (Auto) Eos # (Auto) Baso # (Auto) pO2 VBG pH VBG pCO2 VBG HCO3 VBG Total CO2 VBG O2 Sat (Calc) VBG Base Excess VBG Potassium Glucose Lactate Crit Value Called To Crit Value Called By Crit Value Read Back Blood Gas Notified Time Sodium Potassium Chloride Carbon Dioxide Anion Gap BUN Creatinine Est GFR ( Amer) Est GFR (Non-Af Amer) POC Glucose (mg/dL) Random Glucose Calcium Iron 48 TIBC 309 % Saturation 16 L Total Bilirubin AST ALT Alkaline Phosphatase Total Creatine Kinase CK-MB (Mass) Troponin I NT-Pro-B Natriuret Pep Total Protein Albumin Globulin Albumin/Globulin Ratio TSH 3rd Generation Cortisol AM Sample Venous Blood Potassium Urine Color Urine Clarity Urine pH Ur Specific [place] Urine Protein Urine Glucose (UA) Urine Ketones Urine Blood Urine Nitrate Urine Bilirubin Urine Urobilinogen Ur Leukocyte Esterase Urine WBC (Auto) Urine RBC (Auto) Urine Bacteria Urine Yeast (Budding) Urine Opiates Screen Urine Methadone Screen Ur Barbiturates Screen Ur Phencyclidine Scrn Ur Amphetamines Screen U Benzodiazepines Scrn U Oth Cocaine Metabols U Cannabinoids Screen Assessment & Plan - Assessment and Plan (Free Text) Assessment: Hypoglycemia: suspect 2nd taking insulin and not eating sufficient food, continue to monitor bgm q4hrs, encourage oral diet -COPD: will benfit from bronchodilators and bi-pap, with oxygen NC to keep spo2 b.w 90-92 (NOT 100%) -Patient's at abd.pelvis reveals large bladder suspect overflow disorder, consider urology eval and rx for constipation -r/o UTI: started on zosyn empriically -AVOID any sedations and opoids -lactic normal -continue DV/PUD ppx -Please call ICU if patient's clinical status worsens. - Date & Time Date: 02/10/18 Time: 17:00
--- NOTE | 2018-02-10 12:19 | CT ---
PROCEDURE: CT Abdomen and Pelvis . HISTORY: Constipation COMPARISON: Comparison made with CT scan abdomen pelvis 11/18/2016. TECHNIQUE: Contiguous axial images of the abdomen and pelvis. Oral contrast was administered. No IV contrast given. Coronal and Sagittal reformats generated. The the This CT exam was performed using one or more of the following dose reduction techniques: Automated exposure control, adjustment of the mA and/or kV according to patient size, and/or use of iterative reconstruction technique. Radiation dose: Total exam DLP = 306.74 mGy-cm. FINDINGS: LOWER THORAX: Heart appears mildly enlarged. No significant pericardial effusion. There is a small hiatal hernia with slight wall thickening of distal esophagus likely due to protrusion of gastric mucosa however esophagitis not excluded. Small amount of contrast within the distal esophagus likely due to reflux however possibility of dysmotility not excluded LIVER: Liver exhibits normal size measuring nearly 15 cm in CC dimension. No obvious hepatic mass collection or calcification. GALLBLADDER AND BILE DUCTS: Cholecystectomy PANCREAS: Pancreas is atrophic and fatty replaced. No obvious pancreatic masses collections or calcifications. SPLEEN: Spleen exhibits normal size and attenuation pattern. Few small splenic calcifications again noted ADRENALS: Unremarkable. KIDNEYS AND URETERS: Kidneys demonstrate relatively symmetric size. No evidence of nephrolithiasis. Prominent bilateral extrarenal pelves possibly secondary to markedly distended urinary bladder with urine stasis. . No evidence of ureteral calculi . At least 2 left renal cysts are again noted BLADDER: Distended urinary bladder is markedly distended. Rule out urinary retention REPRODUCTIVE: Apparent hysterectomy. APPENDIX: Unremarkable. BOWEL: Evaluation of the bowel is slightly limited due to incomplete opacification. The stomach material is incompletely distended though contains oral contrast material and air. Incomplete distension presumably accounts for thick-walled appearance. Possibility of gastritis or other intrinsic/ invasive wall lesion not excluded. . None no evidence of acute mechanical small bowel obstruction. There is a moderate amount of stool seen throughout the colon particularly the cecum and at ascending colon consistent with constipation. PERITONEUM: Unremarkable. No fluid collection. No free air. . Small ventral wall hernia in the mid pelvis region. There is also a tiny fat containing umbilical hernia. LYMPH NODES: Several small bilateral inguinal lymph nodes are present. VASCULATURE: Unremarkable. No aortic aneurysm. BONES: There is a chronic superior endplate compression deformity of the L2 segment new since prior study. Multilevel degenerative spondylosis of the lower thoracic and lumbar spine. OTHER FINDINGS: None. IMPRESSION: Small hiatal hernia with slight wall thickening of the distal esophagus likely due to protrusion gastric mucosa. Esophagitis or other intrinsic lesion not excluded. Findings also suggest mild gastroesophageal reflux. Wall thickening of the stomach likely due to incomplete distention. Findings consistent with mild constipation. Marked urinary bladder distention ; rule out urinary retention. Cholecystectomy. See above discussion for additional details and findings
[2018-02-10 12:23] LABS: FOLATE > 20.0 ng/mL
[2018-02-10] MEDS: Simethicone 80 mg Chewtab PO SCH ×3 (14:17→22:02)
[2018-02-10 16:27] LABS: ABG ALLEN TEST POS; ARTERIAL BLOOD GAS HCO3 20.4 mmol/L (21-28); ARTERIAL BLOOD GAS O2 SAT 97.5 % (95-98); ARTERIAL BLOOD GAS PCO2 41 mm/Hg (35-45); ARTERIAL BLOOD GAS PO2 179 mm/Hg (80-100); ARTERIAL BLOOD GAS TCO2 21.5 mmol/L (22-28)
[2018-02-10] MEDS: Saccharomyces Boulardi 250 mg Cap PO SCH (18:25)
[2018-02-10 18:54] LABS: CALCIUM 8.4 mg/dl (8.6-10.4)
[2018-02-10] MEDS: Albuterol-Ipratrop 3 mg / 0.5 (3 ml) UD INH SCH (20:15)
[2018-02-11] MEDS: Albuterol-Ipratrop 3 mg / 0.5 (3 ml) UD INH SCH ×4 (02:36→19:30)
[2018-02-11] MEDS: Piperacillin/Tazobact 3.375 GM in Sodium Chloride 100 ML IVPB SCH ×4 (05:26→21:35)
[2018-02-11 07:58] LABS: BASO % 0.4 % (0.0-2.0); EOS % 0.2 % (0.0-4.0); LYMPH # 0.6 K/uL (1.0-4.3); LYMPH % 15.8 % (20.0-40.0); MEAN CELL VOLUME 86.4 fL (81.0-99.0); MEAN CORPUSCULAR HEMOGLOBIN 28.6 pg (27.0-31.0); MEAN CORPUSCULAR HGB CONC 33.1 g/dL (33.0-37.0); MEAN PLATELET VOLUME 8.4 fL (7.2-11.7); MONO # 0.1 K/uL (0.0-0.8); MONO % 1.8 % (0.0-10.0); NEUT # 3.3 K/uL (1.8-7.0); NEUT % 81.8 % (50.0-75.0); NRBC % 0.3 % (0.0-2.0); RBC 3.68 Mil/uL (3.80-5.20); RED CELL DISTRIBUTION WIDTH 18.2 % (11.5-14.5)
[2018-02-11 08:18] LABS: ALB/GLOB RATIO 1.3 (1.0-2.1); ALBUMIN 3.8 g/dL (3.5-5.0); CALCIUM 8.8 mg/dl (8.6-10.4)
[2018-02-11 08:23] LABS: HEMOGLOBIN 10.5 g/dL (11.0-16.0)
[2018-02-11 08:56] LABS: FERRITIN 20.6 ng/mL
[2018-02-11] MEDS: Saccharomyces Boulardi 250 mg Cap PO SCH ×2 (10:42→17:32)
[2018-02-11] MEDS: Simethicone 80 mg Chewtab PO SCH ×4 (10:43→21:29)
[2018-02-11] MEDS: Enoxaparin 30 mg Syringe SC SCH (10:43)
--- NOTE | 2018-02-11 11:48 | CP.PCM.PN ---
Subjective - Date & Time of Evaluation Date of Evaluation: 02/11/18 Time of Evaluation: 11:48 - Subjective Subjective: Medicine progress note for Dr. Chikis Jean. Patient seen and evaluated at bedside. Patient in no acute distress. States she was constipated, but had a large bowel movement after drinking prune juice. Pt' s lema was d/c'ed. Denies chest pain, shortness of breath, abdominal pain, nausea, vomiting, dysuria, hematuria. fevers and chills. Objective - Vital Signs/Intake and Output Vital Signs (last 24 hours): Temp Pulse Resp BP Pulse Ox 98.2 F 89 20 155/54 H 98 02/11/18 08:00 02/11/18 08:00 02/11/18 08:00 02/11/18 08:00 02/11/18 08:00 Intake and Output: 02/11/18 02/11/18 06:59 18:59 Output Total 2475 Balance -2475 - Medications Medications: Current Medications Albuterol/Ipratropium (Duoneb 3 Mg/0.5 Mg (3 Ml) Ud) 3 ml INH RQ6 [facility] Last Admin: 02/11/18 07:42 Dose: 3 ml Amlodipine Besylate (Norvasc) 10 mg PO DAILY [facility] Aspirin (Ecotrin) 81 mg PO DAILY [facility] Dextrose (Dextrose 50% Inj) 0 ml IV STAT PRN; Protocol PRN Reason: Hypoglycemia Protocol Dextrose (Glutose 15) 15 gm PO ONCE PRN; Protocol PRN Reason: Hypoglycemia Protocol Docusate Sodium (Colace) 100 mg PO TID [facility] Enoxaparin Sodium (Lovenox) 30 mg SC DAILY [facility] Last Admin: 02/11/18 10:43 Dose: 30 mg Famotidine (Pepcid) 20 mg PO DAILY [facility] Last Admin: 02/11/18 10:42 Dose: 20 mg Ferrous Sulfate (Feosol) 325 mg PO DAILY [facility] Glucagon (Glucagen Diagnostic Kit) 1 mg IM STAT PRN; Protocol PRN Reason: Hypoglycemia Protocol Piperacillin Sod/Tazobactam (Sod 3.375 gm/ Sodium Chloride) 100 mls @ 200 mls/ hr IVPB Q6H [facility] PRN Reason: Protocol Last Admin: 02/11/18 11:01 Dose: 200 mls/hr Dextrose (Dextrose 5% In Water 1000 Ml) 1,000 mls @ 0 mls/hr IV .Q0M PRN; Protocol; Per Protocol PRN Reason: Hypoglycemia Protocol Insulin Glargine (Lantus) 5 unit SC HS [facility] Insulin Human Isoph/Insulin Regular (Novolin 70/30 (70/30 Units/Ml) 10 Ml) 8 units SC ACD [facility] Insulin Human Isoph/Insulin Regular (Novolin 70/30 (70/30 Units/Ml) 10 Ml) 20 units SC ACB [facility] Insulin Human Regular (Novolin R) 0 unit SC ACHS [facility] PRN Reason: Protocol Losartan Potassium (Cozaar) 25 mg PO DAILY [facility] Metoclopramide HCl (Reglan) 5 mg PO Q6 [facility] Last Admin: 02/11/18 05:19 Dose: 5 mg Rosuvastatin Calcium (Crestor) 10 mg PO HS [facility] Last Admin: 02/10/18 22:02 Dose: 10 mg Saccharomyces Boulardii (Florastor) 250 mg PO BID [facility] Last Admin: 02/11/18 10:42 Dose: 250 mg Fluticasone/Salmeterol (Advair Diskus 250/50) 1 puff INH RQ12 [facility] Simethicone (Mylicon Chew Tab) 80 mg PO QID [facility] Last Admin: 02/11/18 10:43 Dose: 80 mg Timolol Maleate (Timoptic 0.5% Ophth Soln) 0 drop OU BID [facility] Tiotropium [place] (Spiriva) 18 mcg INH RQ24 [facility] - Labs Labs: 02/11/18 07:39 02/11/18 07:39 - Constitutional Appears: Well, No Acute Distress - Head Exam Head Exam: ATRAUMATIC, NORMOCEPHALIC - Eye Exam Eye Exam: EOMI, Normal appearance - ENT Exam ENT Exam: Mucous Membranes Moist - Respiratory Exam Respiratory Exam: Clear to Ausculation Bilateral. absent: Rales, Rhonchi, Wheezes - Cardiovascular Exam Cardiovascular Exam: REGULAR RHYTHM, +S1, +S2 - GI/Abdominal Exam GI & Abdominal Exam: Soft, Hernia (reducible ), Normal Bowel Sounds. absent: Tenderness - Extremities Exam Extremities Exam: Full ROM. absent: Pedal Edema, Tenderness - Neurological Exam Neurological Exam: Alert, Awake Neuro motor strength exam: Left Upper Extremity: 5, Right Upper Extremity: 5, Left Lower Extremity: 5, Right Lower Extremity: 5 - Psychiatric Exam Psychiatric exam: Normal Mood - Skin Skin Exam: Dry, Intact, Warm Assessment and Plan - Assessment and Plan (Free Text) Plan: 86 year old female with history of DM, HTN, HLD, CAD s/p coronary stent, COPD, asthma, anemia, anxiety and arthritis, evaluated for hypoglycemia and hypothermia. Assessment/plan Hypothermia-> resolved Monitor for SIRS Temp 97.5 Blood cultures x2 UA 1+ leuk esterase Urine culture f/u Procalcitonin 0.09 UDS Positive for opiates Lactate 0.8 --> 0.6 --> 0.3 CXR: no infiltrate IV abx - Zosyn 3.375g IV Q8 ICU initially consulted, however no longer ICU candidate after temp normalized to 97.8 CT head No acute intracranial hemorrhage. Moderate to significant diffuse and confluent chronic white matter ischemic changes seen extending from the periventricular into the deep and subcortical regions bilaterally. There is also extension into the white matter tracts both basal nuclei. Moderate - significant generalized volume loss. Diabetes Mellitus Symptomatic hypoglycemia->resolved Risk factors: insulin dependent diabetic, inconsistent diet, poor oral intake Accucheck Q6 hours D5 NS @ 120cc/hr Cortisol AM Solu-Cortef 50mg IV Q8 Hypoglycemia protocol community educator consult 02/11 blood sugar consistantly in 200s 02/11 restart medication -novolin 70/30: 20 u SC ACB, 8 u SC ACD -Lantus 5u SC HS monitor for hypoglycemia History of hypertension Hypotension-> resolved Hold Norvasc, Losartan, Lasix-> restarted Norvasc 10 PO daily and Losartan 25 PO daily 02/11/18 Cortisol level F/u Monitor VS-> hypotension resolved Last took meds 02/09/18 morning CAD, hx of SYMONE Crestor 10mg PO Q HS Apirin 81mg Not on beta veronique due to history of COPD/hypotension ECHO 01/08/18: EF 65-70% Hx of COPD not acute exacerbation Duonebs RQ6 Advair 250/50 1 puff Q12 Albuterol 3ml Q6 PRN dyspnea Spiriva 18mcg inhaled Q daily Dr. Copeland consulted. ABG pH 7.30 pCO2 41 pO2 179 HCO2 20.4 Maintain O2 sat between 90-92, not at 100% Hyperlipidemia Lipid panel 02/11: TG 66, Chl 107, LDL 41, HDL 46 Crestor 10mg PO Q HS Abdominal pain CT abdomen/pelvis PO contrast Small hiatal hernia with slight wall thickening of the distal esophagus likely due to protrusion gastric mucosa. Esophagitis or other intrinsic lesion not excluded. Findings also suggest mild gastroesophageal reflux. Wall thickening of the stomach likely due to incomplete distention. Findings consistent with mild constipation. Marked urinary bladder distention ; rule out urinary retention. Cholecystectomy. See above discussion for additional details and findings Simethicone 80mg QID Reglan 10mg PO Q6 x2 days Urinary retention No anticholinergic medication Hold off on Meclizine Post void residual volume 700cc Lema in place->removed 02/11 Urine culture 02/10/18: Preliminary-Gram + cocci, F/U sensitivities Hypertension Amlodipine 10mg PO daily Losartan 25mg PO Daily Hx of anemia, chronic H/H runs in 8-9s F/u reticulocyte count, ferritin, iron studies, B12, folate, B12 Constipation Colace 100mg TID prune juice Hx of anxiety Hold Xanax Seizure precautions due to benzo withdrawal and hypoglycemia Hx of vertigo Hold Meclizine 12.5mg PO BID for side effect of urinary retention Acute renal insufficiency BUN/Cr 22/1.1 Glaucoma Timolol 0.5% 1 drop BID [facility] Pepcid 20mg PO daily Prophylactic measures Lovenox 30mg SC daily Pepcid 20mg PO daily Decreased hearing DNR/DNI Pt's daughter Kira Curiel #[phone]
[2018-02-11] MEDS: (Novolin R) Insulin Human Regular 100 units/ml vial SC SCH ×3 (12:39→21:41)
[2018-02-11] MEDS: (Novolin 70/30) NPH/Regular 70/30 Units/ml 10 ml vial SC SCH (17:33)
[2018-02-11] MEDS ORDERED: Magnesium Sulfate 1 gm in D5W 1 GM/100 ML BAG IVPB ONE ×2 (18:59→19:45)
[2018-02-11] MEDS: Tiotropium 18 mcg Cap For Inhalation INH SCH ×2 (19:27→19:32)
[2018-02-11] MEDS: Fluticasone-Salmeterol 250-50mcg Diskus INH SCH (19:33)
--- NOTE | 2018-02-11 21:27 | CARD ---
APPROVED REPORT EKG Measurement Heart [id number] <Conclusion> Sinus bradycardia Left bundle branch block Abnormal ECG
[2018-02-11] MEDS ORDERED: (Lantus) Insulin Glargine, Recombinant SC SCH (22:00)
[2018-02-12] MEDS: Albuterol-Ipratrop 3 mg / 0.5 (3 ml) UD INH SCH ×3 (01:09→13:15)
[2018-02-12 01:54] VITALS: RESP 20
[2018-02-12] MEDS: Piperacillin/Tazobact 3.375 GM in Sodium Chloride 100 ML IVPB SCH ×3 (04:30→16:56)
[2018-02-12] MEDS ORDERED: (Novolin 70/30) NPH/Regular 70/30 Units/ml 10 ml vial SC SCH (07:30)
[2018-02-12 07:44] LABS: BASO % 0.6 % (0.0-2.0); EOS # 0.2 K/uL (0.0-0.7); EOS % 2.6 % (0.0-4.0); HEMOGLOBIN 8.7 g/dL (11.0-16.0); LYMPH # 2.2 K/uL (1.0-4.3); LYMPH % 30.8 % (20.0-40.0); MEAN CELL VOLUME 85.4 fL (81.0-99.0); MEAN CORPUSCULAR HEMOGLOBIN 28.4 pg (27.0-31.0); MEAN CORPUSCULAR HGB CONC 33.2 g/dL (33.0-37.0); MEAN PLATELET VOLUME 8.4 fL (7.2-11.7); MONO % 13.6 % (0.0-10.0); NEUT # 3.7 K/uL (1.8-7.0); NEUT % 52.4 % (50.0-75.0); NRBC % 0.1 % (0.0-2.0); RBC 3.05 Mil/uL (3.80-5.20); RED CELL DISTRIBUTION WIDTH 18.3 % (11.5-14.5)
--- NOTE | 2018-02-12 07:53 | CP.PCM.PN ---
Subjective - Date & Time of Evaluation Date of Evaluation: 02/12/18 Time of Evaluation: 07:53 Objective - Vital Signs/Intake and Output Vital Signs (last 24 hours): Temp Pulse Resp BP Pulse Ox 98.3 F 71 20 120/55 L 95 02/11/18 23:20 02/12/18 03:38 02/11/18 23:20 02/11/18 23:20 02/11/18 23:20 Intake and Output: 02/12/18 02/12/18 06:59 18:59 Intake Total 780 Balance 780 - Medications Medications: Current Medications Acetaminophen (Tylenol 325mg Tab) 650 mg PO Q6 PRN PRN Reason: Pain, Mild (1-3) Albuterol/Ipratropium (Duoneb 3 Mg/0.5 Mg (3 Ml) Ud) 3 ml INH RQ6 [facility] Last Admin: 02/12/18 07:20 Dose: Not Given Amlodipine Besylate (Norvasc) 10 mg PO DAILY [facility] Last Admin: 02/11/18 12:39 Dose: 10 mg Aspirin (Ecotrin) 81 mg PO DAILY [facility] Last Admin: 02/11/18 12:39 Dose: 81 mg Dextrose (Dextrose 50% Inj) 0 ml IV STAT PRN; Protocol PRN Reason: Hypoglycemia Protocol Dextrose (Glutose 15) 15 gm PO ONCE PRN; Protocol PRN Reason: Hypoglycemia Protocol Docusate Sodium (Colace) 100 mg PO TID [facility] Last Admin: 02/11/18 17:32 Dose: 100 mg Enoxaparin Sodium (Lovenox) 30 mg SC DAILY [facility] Last Admin: 02/11/18 10:43 Dose: 30 mg Famotidine (Pepcid) 20 mg PO DAILY [facility] Last Admin: 02/11/18 10:42 Dose: 20 mg Ferrous Sulfate (Feosol) 325 mg PO DAILY [facility] Glucagon (Glucagen Diagnostic Kit) 1 mg IM STAT PRN; Protocol PRN Reason: Hypoglycemia Protocol Piperacillin Sod/Tazobactam (Sod 3.375 gm/ Sodium Chloride) 100 mls @ 200 mls/ hr IVPB Q6H [facility] PRN Reason: Protocol Last Admin: 02/12/18 04:30 Dose: 200 mls/hr Dextrose (Dextrose 5% In Water 1000 Ml) 1,000 mls @ 0 mls/hr IV .Q0M PRN; Protocol; Per Protocol PRN Reason: Hypoglycemia Protocol Insulin Glargine (Lantus) 5 unit SC HS [facility] Last Admin: 02/11/18 21:43 Dose: 5 unit Insulin Human Isoph/Insulin Regular (Novolin 70/30 (70/30 Units/Ml) 10 Ml) 8 units SC ACD [facility] Last Admin: 02/11/18 17:33 Dose: 8 units Insulin Human Isoph/Insulin Regular (Novolin 70/30 (70/30 Units/Ml) 10 Ml) 20 units SC ACB [facility] Insulin Human Regular (Novolin R) 0 unit SC ACHS [facility] PRN Reason: Protocol Last Admin: 02/11/18 21:41 Dose: Not Given Losartan Potassium (Cozaar) 25 mg PO DAILY [facility] Metoclopramide HCl (Reglan) 5 mg PO Q6 [facility] Last Admin: 02/12/18 06:22 Dose: Not Given Rosuvastatin Calcium (Crestor) 10 mg PO HS [facility] Last Admin: 02/10/18 22:02 Dose: 10 mg Saccharomyces Boulardii (Florastor) 250 mg PO BID [facility] Last Admin: 02/11/18 17:32 Dose: 250 mg Fluticasone/Salmeterol (Advair Diskus 250/50) 1 puff INH RQ12 [facility] Last Admin: 02/11/18 19:33 Dose: 1 puff Simethicone (Mylicon Chew Tab) 80 mg PO QID [facility] Last Admin: 02/11/18 21:29 Dose: Not Given Timolol Maleate (Timoptic 0.5% Ophth Soln) 0 drop OU BID [facility] Last Admin: 02/11/18 17:33 Dose: 1 drop Tiotropium [place] (Spiriva) 18 mcg INH RQ24 [facility] Last Admin: 02/11/18 19:32 Dose: 18 mcg - Labs Labs: 02/12/18 07:22 02/11/18 07:39
[2018-02-12 08:09] LABS: ALB/GLOB RATIO 1.3 (1.0-2.1); ALBUMIN 3.4 g/dL (3.5-5.0); CALCIUM 8.8 mg/dl (8.6-10.4)
[2018-02-12] MEDS: (Novolin R) Insulin Human Regular 100 units/ml vial SC SCH ×3 (08:32→17:28)
[2018-02-12] MEDS: Saccharomyces Boulardi 250 mg Cap PO SCH (10:21)
[2018-02-12] MEDS: Simethicone 80 mg Chewtab PO SCH ×2 (10:21→13:31)
[2018-02-12] MEDS: Enoxaparin 30 mg Syringe SC SCH (10:21)
[2018-02-12] MEDS: Fluticasone-Salmeterol 250-50mcg Diskus INH SCH (10:30)
[2018-02-12] MEDS: Tiotropium 18 mcg Cap For Inhalation INH SCH (10:31)
--- NOTE | 2018-02-12 14:04 | CP.PCM.PCO ---
Physician Communication Note - Physician Communication Note Physician Communication Note: Please see above.
[2018-02-12 16:22] VITALS: BP 154/60; PULSE 64; TEMP 98.1; O2SAT 98
[2018-02-12] MEDS: (Novolin 70/30) NPH/Regular 70/30 Units/ml 10 ml vial SC SCH (17:29)
--- NOTE | 2018-02-12 21:19 | CP.PCM.DIS ---
Provider - Provider Date of Admission: 02/10/18 09:03 Attending physician: Atilio Jean MD Primary care physician: Dr. Gomez Time Spent in preparation of Discharge (in minutes): 45 Diagnosis - Discharge Diagnosis (1) Hypoglycemia associated with diabetes Status: Acute (2) Hypotension Status: Acute (3) Hypothermia Status: Acute Hospital Course - Lab Results Lab Results: Micro Results 02/10/18 08:41 Urine,Catheterized Urine Culture - Final Enterococcus Faecalis 02/10/18 06:45 Blood Blood Culture - Preliminary NO GROWTH AFTER 24 HOURS 02/10/18 07:00 Blood Blood Culture - Preliminary NO GROWTH AFTER 24 HOURS Most Recent Lab Values WBC 7.0 K/uL (4.8-10.8) D 02/12/18 07:22 RBC 3.05 Mil/uL (3.80-5.20) L 02/12/18 07:22 Hgb 8.7 g/dL (11.0-16.0) L 02/12/18 07:22 Hct 26.1 % (34.0-47.0) L 02/12/18 07:22 MCV 85.4 fL (81.0-99.0) 02/12/18 07:22 MCH 28.4 pg (27.0-31.0) 02/12/18 07:22 MCHC 33.2 g/dL (33.0-37.0) 02/12/18 07:22 RDW 18.3 % (11.5-14.5) H 02/12/18 07:22 Plt Count 243 K/uL (130-400) 02/12/18 07:22 MPV 8.4 fL (7.2-11.7) 02/12/18 07:22 Neut % (Auto) 52.4 % (50.0-75.0) 02/12/18 07:22 Lymph % (Auto) 30.8 % (20.0-40.0) 02/12/18 07:22 Dubois % (Auto) 13.6 % (0.0-10.0) H 02/12/18 07:22 Eos % (Auto) 2.6 % (0.0-4.0) 02/12/18 07:22 Baso % (Auto) 0.6 % (0.0-2.0) 02/12/18 07:22 Neut # (Auto) 3.7 K/uL (1.8-7.0) 02/12/18 07:22 Lymph # (Auto) 2.2 K/uL (1.0-4.3) 02/12/18 07:22 Dubois # (Auto) 1.0 K/uL (0.0-0.8) H 02/12/18 07:22 Eos # (Auto) 0.2 K/uL (0.0-0.7) 02/12/18 07:22 Baso # (Auto) 0.0 K/uL (0.0-0.2) 02/12/18 07: Retic Count 1.8 % (0.5-1.5) H 02/11/18 07:39 Puncture Site Rba 02/10/18 16:20 pCO2 41 mm/Hg (35-45) 02/10/18 16:20 pO2 179 mm/Hg (80-100) H 02/10/18 16:20 HCO3 20.4 mmol/L (21-28) L 02/10/18 16:20 ABG pH 7.30 (7.35-7.45) L 02/10/18 16:20 ABG Total CO2 21.5 mmol/L (22-28) L 02/10/18 16:20 ABG O2 Saturation 97.5 % (95-98) 02/10/18 16:20 ABG Base Excess -5.9 mmol/L (-2.0-3.0) L 02/10/18 16:20 Nitlon Test Pos 02/10/18 16:20 ABG Potassium 4.3 mmol/L (3.6-5.2) 02/10/18 16:20 VBG pH 7.23 (7.32-7.43) L 02/10/18 10:55 VBG pCO2 48 mmHg (40-60) 02/10/18 10:55 VBG HCO3 17.1 mmol/L 02/10/18 10:55 VBG Total CO2 21.6 mmol/L (22-28) L 02/10/18 10:55 VBG O2 Sat (Calc) 44.0 % (40-65) 02/10/18 10:55 VBG Base Excess -7.5 mmol/L (0.0-2.0) L 02/10/18 10:55 VBG Potassium 4.8 mmol/L (3.6-5.2) 02/10/18 10:55 A-a O2 Difference -2.0 mm/Hg 02/10/18 16:20 Respiratory Index 0 02/10/18 16:20 Sodium 141.0 mmol/l (132-148) 02/10/18 16:20 Chloride 116.0 mmol/L (98-107) H 02/10/18 16:20 Glucose 154 mg/dl (65-105) H 02/10/18 16:20 Lactate 0.3 mmol/L (0.7-2.1) L 02/10/18 16:20 Liter Flow 3.0 02/10/18 16:20 FiO2 32.0 % 02/10/18 16:20 Crit Value Called To Dr phillips 02/10/18 07:36 Crit Value Called By Roosevelt rutherford plant technician/control room operator 02/10/18 07:36 Crit Value Read Back Y 02/10/18 07:36 Blood Gas Notified Time 747 02/10/18 07:36 Sodium 143 mmol/L (132-148) 02/12/18 07:22 Potassium 4.4 mmol/L (3.6-5.2) 02/12/18 07:22 Chloride 109 mmol/L (98-107) H 02/12/18 07:22 Carbon Dioxide 22 mmol/L (22-30) 02/12/18 07:22 Anion Gap 16 (10-20) 02/12/18 07:22 BUN 17 mg/dL (7-17) 02/12/18 07:22 Creatinine 1.2 mg/dL (0.7-1.2) 02/12/18 07:22 Est GFR ( Amer) 52 02/12/18 07:22 Est GFR (Non-Af Amer) 43 02/12/18 07:22 POC Glucose (mg/dL) 117 mg/dL (65-110) H 02/12/18 17:11 Random Glucose 145 mg/dL (65-105) H 02/12/18 07:22 Calcium 8.8 mg/dl (8.6-10.4) 02/12/18 07:22 Phosphorus 3.5 mg/dL (2.5-4.5) 02/11/18 07:39 Magnesium 1.7 mg/dL (1.6-2.3) 02/12/18 07:22 Iron 48 ug/dL (37-170) 02/10/18 10:59 TIBC 309 ug/dL (250-450) 02/10/18 10:59 % Saturation 8 (20-55) L 02/11/18 07:39 Ferritin 20.6 ng/mL 02/11/18 07:39 Total Bilirubin 0.3 mg/dL (0.2-1.3) 02/12/18 07:22 AST 28 U/L (14-36) 02/12/18 07:22 ALT 39 U/L (9-52) 02/12/18 07:22 Alkaline Phosphatase 96 U/L (38-126) 02/12/18 07:22 Total Creatine Kinase 51 U/L (30-135) 02/10/18 04:35 CK-MB (Mass) 1.06 ng/mL (0.0-3.38) 02/10/18 04:35 Troponin I < 0.0120 ng/mL (0.00-0.120) 02/10/18 04:35 NT-Pro-B Natriuret Pep 961 pg/mL (0-900) H 02/10/18 10:01 Total Protein 6.0 g/dL (6.3-8.3) L 02/12/18 07:22 Albumin 3.4 g/dL (3.5-5.0) L 02/12/18 07:22 Globulin 2.6 gm/dL (2.2-3.9) 02/12/18 07:22 Albumin/Globulin Ratio 1.3 (1.0-2.1) 02/12/18 07:22 Triglycerides 66 mg/dL (0-149) 02/11/18 07:39 Cholesterol 107 mg/dL (0-199) 02/11/18 07:39 LDL Cholesterol Direct 41 mg/dL (0-129) 02/11/18 07:39 HDL Cholesterol 46 mg/dL (30-70) 02/11/18 07:39 Vitamin B12 573 pg/mL (239-931) 02/10/18 10:59 Folate > 20.0 ng/mL 02/10/18 10:59 Procalcitonin 0.09 NG/ML (0.19-0.49) L 02/10/18 10:01 TSH 3rd Generation 2.88 mIU/L (0.46-4.68) 02/10/18 10:01 Cortisol AM Sample 6.5 ug/dL (4.46-22.7) 02/10/18 10:01 Arterial Blood Potassium 4.3 mmol/L (3.6-5.2) 02/10/18 16:20 Venous Blood Potassium 4.8 mmol/L (3.6-5.2) 02/10/18 10:55 Urine Color Yellow (YELLOW) 02/10/18 08:41 Urine Clarity Clear (Clear) 02/10/18 08:41 Urine pH 5.0 (5.0-8.0) 02/10/18 08:41 Ur Specific Alanson 1.008 (1.003-1.030) 02/10/18 08:41 Urine Protein Negative mg/dL (NEGATIVE) 02/10/18 08:41 Urine Glucose (UA) Normal mg/dL (Normal) 02/10/18 08:41 Urine Ketones Negative mg/dL (NEGATIVE) 02/10/18 08:41 Urine Blood Negative (NEGATIVE) 02/10/18 08:41 Urine Nitrate Negative (NEGATIVE) 02/10/18 08:41 Urine Bilirubin Negative (NEGATIVE) 02/10/18 08:41 Urine Urobilinogen Normal mg/dL (0.2-1.0) 02/10/18 08:41 Ur Leukocyte Esterase 1+ Branden/uL (Negative) H 02/10/18 08:41 Urine WBC (Auto) 6 /hpf (0-5) H 02/10/18 08:41 Urine RBC (Auto) 5 /hpf (0-3) H 02/10/18 08:41 Urine Bacteria Rare (<OCC) 02/10/18 08:41 Urine Yeast (Budding) Few /hpf (NEGATIVE) H 02/10/18 08:41 Urine Opiates Screen Positive (NEGATIVE) H 02/10/18 10:30 Urine Methadone Screen Negative (NEGATIVE) 02/10/18 10:30 Ur Barbiturates Screen Negative (NEGATIVE) 02/10/18 10:30 Ur Phencyclidine Scrn Negative (NEGATIVE) 02/10/18 10:30 Ur Amphetamines Screen Negative (NEGATIVE) 02/10/18 10:30 U Benzodiazepines Scrn Positive (NEGATIVE) 02/10/18 10:30 U Oth Cocaine Metabols Negative (NEGATIVE) 02/10/18 10:30 U Cannabinoids Screen Negative (NEGATIVE) 02/10/18 10:30 - Hospital Course Hospital Course: On admission: HPI: Patient is a 86 year old female with history of DM, HTN, HLD, CAD s/p coronary stent, COPD, asthma, anemia, anxiety and arthritis, He states that patient woke up in the middle of night at 3AM experiencing sweats, chills, lightheadedness and weakness. EMS was called who checked blood glucose which were in the 40s. She was given 1Amp of D5 in the ED. Son states that she has not been eating well, but has still been taking insulin as directed. She also states that her legs are swollen, and has had some difficulty urinating. She denies pain with urination. She denies chest pain, palpitations, cough, recent infections, recent travel, nausea, vomiting, diarrhea. Her last bowel movement was yesterday morning. She states she last took her medications at 02/09/18 morning. Son Rich Curiel is present at bedside. Daughter Kira Curiel #[phone] Hospital course: Patient was admitted and evaluated for Hypogycemia, hypotension, and hypothermia. Patient was found to be hypothermic on arrival to ED. A bear hugger was used to bring patient's body temperature back to normal range. A head CT was done to rule out acute intra-cerebral event. CT head: No acute intracranial hemorrhage. Moderate to significant diffuse and confluent chronic white matter ischemic changes seen extending from the periventricular into the deep and subcortical regions bilaterally. There is also extension into the white matter tracts both basal nuclei. Moderate - significant generalized volume loss. (Please see full report) Patient was given cortisol and solu-cortef to treat hypoglycemia. Once Patient' s blood sugars normalized, she was started on her home insulin with modifications and monitored for hypoglycemia. After treatment, patient's blood sugar remained in the 200s. Patient's blood pressure also normalized and patient was started on her home medications. Hypotension did not recur. Patient complained of difficulty urinating, thought to be a side effect of home medication Meclizine. This medication was held and patient was instructed to discontinue. Patient also found to have bacteria in the urine sensitive to Ciprofloxacin- prescription provided for patient. instructions: Make sure to schedule follow up with your primary care physician Dr. Gomez in the next 10 days to perform a repeat urine culture to make sure that your urine infection is gone. STOP taking the medication Meclizine as this is causing you to keep urine in your bladder which is the reason that you likely got a urine infection. Resume Home Health Services [facility] Discharge Exam - Head Exam Head Exam: ATRAUMATIC, NORMOCEPHALIC - Eye Exam Eye Exam: EOMI, Normal appearance - ENT Exam ENT Exam: Mucous Membranes Moist - Respiratory Exam Respiratory Exam: Clear to PA & Lateral, NORMAL BREATHING PATTERN, UNREMARKABLE. absent: Accessory Muscle Use, Rales, Rhonchi, Wheezes - Cardiovascular Exam Cardiovascular Exam: REGULAR RHYTHM, +S1, +S2. absent: Irregular Rhythm - GI/Abdominal Exam GI & Abdominal Exam: Normal Bowel Sounds, Soft, Unremarkable. absent: Guarding , Tenderness - Extremities Exam Extremities exam: normal inspection - Neurological Exam Neurological exam: Alert, Oriented x3 - Psychiatric Exam Psychiatric exam: Normal Mood - Skin Skin Exam: Dry, Normal Color, Warm Discharge Plan - Discharge Medications Prescriptions: Albuterol HFA [Ventolin HFA 90 mcg/actuation (8 g)] 2 puff IH QID PRN #1 inhaler PRN Reason: Shortness Of Breath amLODIPine [Norvasc] 10 mg PO DAILY #30 tab Aspirin [Ecotrin] 81 mg PO DAILY 30 Days tabec Ciprofloxacin [Cipro] 500 mg PO BID #14 tab Docusate [Colace] 100 mg PO TIDCC 90 Days cap Esomeprazole Magnesium [Nexium] 40 mg PO DAILY #30 capsule. Ferrous Sulfate [Feosol] 325 mg PO BID #60 tab Fluticasone/Salmeterol 250/50 [Advair Diskus 250/50] 1 puff INH RQ12 #1 inhaler Insulin Glargine, Recombina [Lantus] 5 unit SC HS #1 vial Insulin Human (NPH)/Regular [Novolin 70/30 (70/30 units/ml) 10 ml] 20 units SC ACB #1 vial Insulin Human (NPH)/Regular [Novolin 70/30 (70/30 units/ml) 10 ml] 8 units SC ACD #1 vial Losartan [Cozaar] 25 mg PO DAILY #30 tab Lubiprostone [Amitiza] 24 mcg PO BID #60 capsule Rosuvastatin Calcium [Crestor] 5 mg PO HS #30 tab Tiotropium [Spiriva] 18 mcg INH RQ24 #30 Tiotropium [place] Inhaler [Spiriva Inhalation Handihaler Device] 1 inhaler INH ONCE #1 inhaler - Follow Up Plan Condition: FAIR Disposition: HOME/ ROUTINE Instructions: Heart Healthy Diet, Diabetes Exchange Diet, Carbohydrate Counting Diet, Diabetes Diet , Low Blood Sugar in People With Diabetes, Coronary Heart Disease (DC), Exacerbation of COPD (DC) Additional Instructions: Blood Glucose is under control. She is eating 3 meals a day and there are no more hypoglycemic episodes. She moved her bowels this morning and they were normal She is urinating on her own without difficulty NO abdominal pain NO n/v NO other complaints upon FULL ROS The following instructions will need to be provided to patient in Dutch upon discharge: 1) Please have the following prescriptions filled at your pharmacy on your way from the hospital: Ciprofloxacin 500 mg, 1 tablet by mouth 2x/day (8 AM and 8 PM), Dispense #14, NO Refills Xanax 1 mg by mouth once daily at lunch time (1 PM), Dispense #30 Norvasc 10 mg by mouth once daily at breakfast (8 AM), Dispense #30 Aspirin 81 mg by mouth once daily at breakfast (8 AM), Dispense #30 Combigan (0.5%/0.2%) 1 drop in each eye twice daily at breakfast and dinner (8 AM and 8 PM), Dispense 1 bottle Colace 100 mg by mouth three timer per day at breakfast, lunch and dinner (8 AM , 1 PM, 8 PM), Dispense #90 Novolin 70/30 20 units subcutaneously with breakfast (8 AM), Dispense 10 ml vial Novolin 70/30 8 units subcutaneously with dinner (8 PM), Dispense 10 ml vial Lantus 5 units subcutaneous at bedtime (right before you go to sleep), Dispense 10 ml vial Crestor 5 mg by mouth once daily at bedtime (right before you go to sleep), Dispense #30 Amitiza 24 mcg by mouth twice daily (8 AM and 8 PM), Dispense #60 Losartan 25 mg by mouth once daily (8 AM), Dispense #30 Nexium 40 mg by mouth once daily (8 AM), Dispense #30 Advair 50/250 mcg inhaled twice daily (8 AM and 8 PM), Dispense #1 Spiriva 18 mcg capsule via handihaler device, 1 puff daily (1 PM), Dispense #30 Albuterol 90 mcg 2 puffs inhaled every 6 hours as needed for shortness of breath , Dispense #1 Ferrous sulfate 325 mg by mouth twice daily at breakfast and dinner (8 AM and 8 PM), Dispense #60 Calcium citrate 1,200 mg with Vitamin D 800 units everyday in divided doses ( not all at once) over the counter 2). Please make sure that you are having 3 meals a day and staying well hydrated with water. 3). Please make sure that you are having a guinean yogurt with lunch (1 PM) for the next 37 days to make sure the good bacteria do not in your colon from the antibiotic (Ciprofloxacin) that you are being given to help treat your infection in the urine. 4). Do NOT lift anything heavy and be careful going up and down stairs as the antiobiotic being given to you for your urine infection can cause inflammation of your tendons or rupture of your tendon. 5). Make sure to schedule follow up with your primary care physician Dr. Gomez in the next 10 days to perform a repeat urine culture to make sure that your urine infection is gone. 6). STOP taking the medication Meclizine as this is causing you to keep urine in your bladder which is the reason that you likely got a urine infection. 7). Resume Home Health Services [facility] Atilio Jean D.O. Referrals: [facility] at [facility] [Outside]
== END 2018-02-12 18:24 | disposition home health service (06) | DRG 638 ==
LOC: C.ER 03:28 → C.9E 09:03 → C.6T 09:49 → C.9E 10:00 → C.6T 10:23
PROVIDERS: ADMIT Family Medicine; ATTEND Family Medicine
DX: E11.649 Type 2 diabetes mellitus with hypoglycemia without coma (principal); N39.0 Urinary tract infection, site not specified; E78.5 Hyperlipidemia, unspecified; F41.9 Anxiety disorder, unspecified; H40.9 Unspecified glaucoma; I11.0 Hypertensive heart disease with heart failure; I25.10 Atherosclerotic heart disease of native coronary artery without angina pectoris; I44.7 Left bundle-branch block, unspecified; I50.9 Heart failure, unspecified; J44.9 Chronic obstructive pulmonary disease, unspecified; K21.9 Gastro-esophageal reflux disease without esophagitis; K44.9 Diaphragmatic hernia without obstruction or gangrene; K59.00 Constipation, unspecified; N32.89 Other specified disorders of bladder; Z66 Do not resuscitate; Z79.4 Long term (current) use of insulin; Z87.891 Personal history of nicotine dependence; Z95.5 Presence of coronary angioplasty implant and graft; D64.9 Anemia, unspecified; B95.2 Enterococcus as the cause of diseases classified elsewhere

== ENCOUNTER 2018-04-06 11:14 | Emergency (ER) | payer MEDICARE, MEDICAID ==
[2018-04-06 11:15] VITALS: BMI 22.6
[2018-04-06 11:22] VITALS: O2SAT 98
[2018-04-06] MEDS ORDERED: Belladonna-Phenobarbital PO STA (11:45)
[2018-04-06] MEDS ORDERED: Aluminum Hydroxide/Magnesium Hydroxide Susp (30 mL) PO STA (11:45)
--- NOTE | 2018-04-06 11:45 | C.PDOC ---
History Of Present Illness 86 year old male with history of gastritis presents to ED complaining of recurring epigastric pain since this morning. Patient states pain is similar to prior episodes. Patient is compliant with medication, but did not take his usual dose today. Denies dizziness, nausea, vomiting, diarrhea, chest pain, shortness of breath. VIA TRANS CO RECUR EPIG PAIN SINCE THIS MORNING. PS HO GASTRITIS, CURRENT PAIN SIM TO PRIOR. NO DIZZY, NVD, CP, SOB. COMPLIANT W MEDS BUT DID NOT TAKE USUAL DOSE TODAY. history of DM, HTN, HLD, CAD s/p coronary stent, COPD, asthma, anemia, anxiety and arthritis, Son Rich Curiel is present at bedside. Daughter Kira Curiel #[phone] EXAM NEG MDM EPIG PAIN RECUR PUD. RO ACS History Per: Patient History/Exam Limitations: no limitations Onset/Duration Of Symptoms: Hrs Current Symptoms Are (Timing): Still Present Location Of Pain/Discomfort: Epigastric Associated Symptoms: denies: Nausea, Vomiting, Diarrhea Recent travel outside of the [place]: No Past Medical History Reviewed: Historical Data, Nursing Documentation, Vital Signs Vital Signs: Last Vital Signs Temp 98.8 F 04/06/18 11:21 Pulse 62 04/06/18 11:21 Resp 10 L 04/06/18 11:21 BP 171/71 H 04/06/18 11:21 Pulse Ox 98 04/06/18 12:18 - Medical History PMH: Anemia, Anxiety, Arthritis (R HIP; BACK), Asthma, Back Problems (HX CHRONIC BACK PAIN), CAD, COPD, Diabetes, Fractures (left wrist AND RT. HIP), Gastritis, HTN, Hypercholesterolemia, Hyperlipidemia, Osteoporosis, Rheumatoid Arthritis Denies: Chronic Kidney Disease, Seizures Surgical History: Coronary St[facility] (cad [facility] 02/2016 with [facility] APPLICATION OF SPLINT (06/18/14) EXCISION OF ASCENDING COLON, ENDO, DIAGN (12/05/16) EXCISION OF STOMACH, ENDO, DIAGN (12/05/16) FLUOROSCOPY OF LEFT HEART USING LOW OSMOLAR CONTRAST (02/05/16) GAIT TRAINING/AMBULAT TREATMENT USING ASSIST EQUIPMENT (11/08/15) INTRODUCE ANTI-INFLAM IN PERIPH NRV, PLEXI, PERC (11/08/15) INTRODUCE REGIONAL ANESTH IN PERIPH NRV, PLEXI, PERC (11/08/15) MEASURE OF CARDIAC SAMPL & PRESSURE, L HEART, PERC APPROACH (02/05/16) NEBULIZER THERAPY (06/16/14) REPAIR LEFT UPPER ARM TENDON, OPEN APPROACH (11/08/15) REPAIR OF HAMMER TOE (07/17/13) REPOSITION LEFT HUMERAL SHAFT WITH INT FIX, OPEN APPROACH (11/08/15) TRANSFUSE NONAUT RED BLOOD CELLS IN PERIPH VEIN, PERC (12/05/16) Family History: States: No Known Family Hx - Social History Hx Tobacco Use: No (Quit) Hx Alcohol Use: No Hx Substance Use: No - Immunization History Hx Tetanus Toxoid Vaccination: Yes (3 mos. ago) Hx Influenza Vaccination: No Hx Pneumococcal Vaccination: Yes Review Of Systems Except As Marked, All Systems Reviewed And Found Negative. Cardiovascular: Negative for: Chest Pain Respiratory: Negative for: Shortness of Breath Gastrointestinal: Positive for: Abdominal Pain (epigastric). Negative for: Nausea, Vomiting, Diarrhea Neurological: Negative for: Dizziness Physical Exam - Physical Exam Appears: Non-toxic, No Acute Distress Skin: Warm Head: Atraumatic, Normacephalic Eye(s): bilateral: Normal Inspection, PERRL, EOMI Oral Mucosa: Moist Neck: Supple Chest: Symmetrical Cardiovascular: Rhythm Regular Respiratory: Normal Breath Sounds Gastrointestinal/Abdominal: Soft, No Tenderness Extremity: Normal ROM Neurological/Psych: Oriented x3 ED Course And Treatment - Laboratory Results Result Diagrams: 04/06/18 11:52 04/06/18 11:52 ECG: Interpreted By Me ECG Rhythm: L BBB ECG Interpretation: No Changes From Prior Rate From EC O2 Sat by Pulse Oximetry: 98 Pulse Ox Interpretation: Normal - Radiology CXR: Interpreted by Me, Viewed By Me CXR Interpretation: Yes: No Acute Disease, Other (negative) Progress - Re-Evaluation Re-evaluation Note: 04/06/18 13:02 ASYMPT VSS - Data Reviewed Data Reviewed: Lab, Diagnostic imaging, EKG, Old records Medical Decision Making Medical Decision Making: Plan: * EKG * labs * Chest x-ray * * Maalox * Pepcid * Protonix * Urinalysis Disposition Counseled Patient/Family Regarding: Studies Performed, Diagnosis, Need For Followup - Disposition Referrals: YOUR,PMD [Other] Disposition: HOME/ ROUTINE Disposition Time: 13:02 Condition: IMPROVED Instructions: Gastritis (DC) Print Language: TURKMEN - Clinical Impression Clinical Impression: Abdominal pain - Scribe Statement The provider has reviewed the documentation as recorded by the Brionna Jackson Stevan Provider Attestation: All medical record entries made by the Brionna were at my direction and personally dictated by me. I have reviewed the chart and agree that the record accurately reflects my personal performance of the history, physical exam, medical decision making, and the department course for this patient. I have also personally directed, reviewed, and agree with the discharge instructions and disposition.
[2018-04-06 12:05] LABS: BASO # 0.1 K/uL (0.0-0.2); EOS # 0.2 K/uL (0.0-0.7); EOS % 2.5 % (0.0-4.0); LYMPH # 1.2 K/uL (1.0-4.3); LYMPH % 18.9 % (20.0-40.0); MEAN CORPUSCULAR HEMOGLOBIN 29.3 pg (27.0-31.0); MEAN CORPUSCULAR HGB CONC 33.4 g/dL (33.0-37.0); MEAN PLATELET VOLUME 9.5 fL (7.2-11.7); MONO # 0.6 K/uL (0.0-0.8); NEUT # 4.2 K/uL (1.8-7.0); NEUT % 67.6 % (50.0-75.0); RBC 3.89 Mil/uL (3.80-5.20); RED CELL DISTRIBUTION WIDTH 15.3 % (11.5-14.5); WHITE BLOOD COUNT 6.2 K/uL (4.8-10.8)
[2018-04-06] MEDS ORDERED: Aluminum Hydroxide/Magnesium Hydroxide Susp (30 mL) ONE (12:05)
[2018-04-06] MEDS ORDERED: Belladonna-Phenobarbital ONE (12:05)
[2018-04-06 12:06] LABS: HEMOGLOBIN 11.4 g/dL (11.0-16.0); MEAN CELL VOLUME 87.7 fL (81.0-99.0)
[2018-04-06 12:16] LABS: ALB/GLOB RATIO 1.5 (1.0-2.1); ALBUMIN 4.1 g/dL (3.5-5.0); ALT/SGPT 19 U/L (9-52); AST/SGOT 23 U/L (14-36); BLOOD UREA NITROGEN 21 mg/dL (7-17); CALCIUM 9.4 mg/dl (8.6-10.4); GFR NON-AFRICAN AMERICAN 59; LIPASE 18 U/L (23-300)
[2018-04-06 13:37] VITALS: BP 176/74; PULSE 59; RESP 14; TEMP 99.1
--- NOTE | 2018-04-06 13:54 | RAD ---
Date of service: 04/06/2018 PROCEDURE: CHEST RADIOGRAPH, 1 VIEW HISTORY: Abdominal pain COMPARISON: Comparison chest 02/10/2018 FINDINGS: LUNGS: Fibrosis/scarring changes right lung apex. There also appears to be some curvilinear atelectasis and or scarring in the right mid lung field and right lung base. PLEURA: No pneumothorax or pleural fluid seen. CARDIOVASCULAR: Cardiomegaly. OSSEOUS STRUCTURES: No significant abnormalities. VISUALIZED UPPER ABDOMEN: Normal. OTHER FINDINGS: None. IMPRESSION: Fibrosis/scarring changes right lung apex. There also appears to be some curvilinear atelectasis and or scarring in the right mid lung field and right lung base.
== END 2018-04-06 13:37 | disposition home or self-care (01) ==
LOC: C.ER 11:14
DX: R10.13 Epigastric pain (principal)
CPT/HCPCS: 71045; 80053; 82948; 83690; 84484; 85025; 96374; 96375; 99285; C9113

== ENCOUNTER 2018-05-08 09:22 | Day surgery (SDC) | payer MEDICARE, MEDICAID ==
[2018-05-07 12:17] VITALS: BMI 20.2
[2018-05-08] MEDS ORDERED: Propofol 10 mg/ml Inj (20 ML) ONE (12:10)
[2018-05-08] MEDS ORDERED: Lidocaine Hydrochloride 5 ML INJ ONE (12:10)
[2018-05-08 12:57] VITALS: O2SAT 100
[2018-05-08 13:56] VITALS: BP 151/69; PULSE 60; RESP 20; TEMP 98.9
== END 2018-05-08 13:50 | disposition home or self-care (01) ==
LOC: C.ENDO 09:22
PROVIDERS: ATTEND Internal Medicine Gastroenterology
DX: R63.4 Abnormal weight loss (principal); K29.70 Gastritis, unspecified, without bleeding
CPT/HCPCS: 43239; 82948; 88305; J2704

== ENCOUNTER 2018-05-08 20:58 | Emergency (ER) | payer MEDICARE, MEDICAID ==
[2018-05-08 20:59] VITALS: BMI 20.2
--- NOTE | 2018-05-08 21:24 | C.PDOC ---
History Of Present Illness 86 y/o female brought in by EMS s/p trip and fall in a parking lot, 1 hour prior to arrival. Patient states she fell forward, striking her right elbow, right knee, and right side of forehead on the pavement. There was no LOC. Patient sustained a laceration to the right forehead. She was able to get up and ambulate right away, fully weight-bearing. Patient is currently complaining of neck stiffness and pain. Denies any chest pain, SOB, dizziness, nausea, vomiting, blurred/double vision, or other injuries. Last Tetanus booster was 5 years ago. Patient has a history of chronic dizziness and often walks without her walker making her a fall risk. - HPI Time Seen by Provider: 05/08/18 21:06 Chief Complaint (Nursing): Trauma History Per: Patient History/Exam Limitations: no limitations Injury Occurred (Timing): Hours Ago: (1) - Fall Fall:Prior To Injury: Tripped Past Medical History Reviewed: Historical Data, Nursing Documentation, Vital Signs Vital Signs: Last Vital Signs Temp 98.5 F 05/08/18 21:00 Pulse 68 05/08/18 21:00 Resp 12 05/08/18 21:00 BP 161/74 H 05/08/18 21:00 Pulse Ox 97 05/08/18 21:00 - Medical History PMH: Anemia, Anxiety, Arthritis (R HIP; BACK), Asthma, Back Problems (HX CHRONIC BACK PAIN), CAD, COPD, Diabetes, Fractures (left wrist AND RT. HIP, LEFT LEG), Gastritis, HTN, Hypercholesterolemia, Hyperlipidemia, Osteoporosis, Chronic Kidney Disease Denies: Seizures Surgical History: Coronary Stent (cad cath 02/2016 with stent X2), Endoscopy - [facility] Procedures APPLICATION OF SPLINT (06/18/14) EXCISION OF ASCENDING COLON, ENDO, DIAGN (12/05/16) EXCISION OF STOMACH, ENDO, DIAGN (12/05/16) FLUOROSCOPY OF LEFT HEART USING LOW OSMOLAR CONTRAST (02/05/16) GAIT TRAINING/AMBULAT TREATMENT USING ASSIST EQUIPMENT (11/08/15) INTRODUCE ANTI-INFLAM IN PERIPH NRV, PLEXI, PERC (11/08/15) INTRODUCE REGIONAL ANESTH IN PERIPH NRV, PLEXI, PERC (11/08/15) MEASURE OF CARDIAC SAMPL & PRESSURE, L HEART, PERC APPROACH (02/05/16) NEBULIZER THERAPY (06/16/14) REPAIR LEFT UPPER ARM TENDON, OPEN APPROACH (11/08/15) REPAIR OF HAMMER TOE (07/17/13) REPOSITION LEFT HUMERAL SHAFT WITH INT FIX, OPEN APPROACH (11/08/15) TRANSFUSE NONAUT RED BLOOD CELLS IN PERIPH VEIN, PERC (12/05/16) Family History: States: Unknown Family Hx - Social History Hx Tobacco Use: No (Quit) Hx Alcohol Use: No Hx Substance Use: No - Immunization History Hx Tetanus Toxoid Vaccination: Yes (3 mos. ago) Hx Influenza Vaccination: No Hx Pneumococcal Vaccination: Yes Review Of Systems Constitutional: Negative for: Fever Eyes: Negative for: Vision Change Cardiovascular: Negative for: Chest Pain, Palpitations Respiratory: Negative for: Shortness of Breath Gastrointestinal: Negative for: Nausea, Vomiting, Abdominal Pain Musculoskeletal: Positive for: Neck Pain (and stiffness). Negative for: Back Pain Skin: Positive for: Lesions (laceration to forehead) Neurological: Negative for: Weakness, Numbness, Incoordination, Change in Speech, Dizziness Physical Exam - Physical Exam Appears: Non-toxic, No Acute Distress Skin: Normal Color, Warm, Dry Head: Normacephalic, Laceration (Laceration above the right eyebrow with 2 cm avulsion flap) Eye(s): bilateral: Normal Inspection, PERRL, EOMI Nose: Normal, No Deformity, No Tenderness Oral Mucosa: Moist Teeth: No Tender To Palpation, No Loose Neck: Trachea Midline, No Midline Cervical Tenderness, Supple, Other (Mild tenderness anteriorly over the left sternocleidomastoid) Chest: Symmetrical, No Tenderness Cardiovascular: Rhythm Regular, No Murmur Respiratory: Normal Breath Sounds, No Accessory Muscle Use, Other (No respiratory distress) Gastrointestinal/Abdominal: Soft, No Tenderness, No Distention Extremity: Normal ROM, No Tenderness (no point tenderness), Capillary Refill (less than 2 sec), No Deformity, Other (Superficial abrasions to the right elbow, and left anterior knee) Pulses: Left Dorsalis Pedis: Normal, Right Dorsalis Pedis: Normal Neurological/Psych: Oriented x3, Normal Speech, Normal Cranial Nerves, Normal Motor, Normal Sensation, Other (Neurologically intact) Gait: Steady ED Course And Treatment O2 Sat by Pulse Oximetry: 97 (RA) Pulse Ox Interpretation: Normal - CT Scan/US CT head Other Rad Studies (CT/US): Read By Radiologist, Radiology Report Reviewed CT/US Interpretation: EXAM: CT Head Without IV contrast. CLINICAL HISTORY: Fall, abrasion and swelling on right side forehead. TECHNIQUE: Axial computed tomography images of the head/brain without intravenous contrast. COMPARISON: 02/10/18. Report not provided. FINDINGS: BRAIN. No acute intraparenchymal hemorrhage. No mass lesion. No CT evidence for acute territorial infarct. No midline shift or extra-axial collections. there is decreased attenuation in the periventricular and subcortical white matter in indicating chronic microvascular ischemic changes. There are age apprropriate involutional changes. There is a 9 mm round calcific density adjacent to the inner table of the right frontal bone which probably represents a calcified meningioma. VENTRICLES: No hydrocephalus. ORBITS: The orbits are unremarkable. SINUSES AND MASTOIDS: The paranasal sinuses and mastoid air cells are clear. BONES: No fracture. IMPRESSION: no acute intracranial hemorrhage identified. Chronic ischemic changes in white matter. Probable 9 mm right frontal meningioma. . Electronically signed on May 08, 2018 11:06:02 PM EDT by: Lenny Werner M.D., Certified by ABR CT C spine Other Rad Studies (CT/US): Read By Radiologist, Radiology Report Reviewed CT/US Interpretation: EXAM: CT Cervical Spine Without IV contrast. CLINICAL HISTORY: Pain in neck after head injury. TECHNIQUE: Axial computed tomography images of the cervical spine without intravenous contrast. Sagittal and coronal reformatted images were generated. COMPARISON: None provided. FINDINGS: ALIGNMENT. Bony alignment is anatomic. SOFT TISSUES. The prevertebral soft tissues are within normal limits. BONES. No acute fracture or aggressive appearing osseous lesion. IMPRESSION: No acute cervical spine abnormality. . Electronically signed on May 08, 2018 11:10:56 PM EDT by: Lenny Werner M.D., Certified by [facility]BR Procedure: Wound Repair - Time Out Time Out: Patient ID confirmed - Consent Obtained Consent obtained: Verbal - Performed by Performed by: Attending Physician - Indications Indication(s):: Laceration - Location Location:: Right, Eyebrow Shape:: Other (avulsion with flap) Dimensions Length cm: 2 Dimensions width cm: 1.5 Depth:: Subcutaneous fascia - Anesthetic Technique Anesthetic Technique: Local Local/Regional Anesthetic:: Lidocaine 1% - Debris Debris:: None - Irrigated Irrigated with ml of normal saline: 200 - Complexity Complexity:: Simple (one layer) - Wound repair method Sutures:: # (5), Size (6.0), Type (nylon), Technique (simple interrupted) - Patient tolerated procedure Patient Tolerated Procedure:: Well Medical Decision Making Medical Decision Making: Impression: Mechanical fall, Head trauma, no LOC Plan: --CT Head --CT Cervical Spine All imaging results discussed with patient. Disposition Counseled Patient/Family Regarding: Studies Performed, Diagnosis - Disposition Referrals: Chuck Gomez MD [Staff Provider] - Disposition: HOME/ ROUTINE Disposition Time: 23:57 Condition: IMPROVED Additional Instructions: Please use your walker to help prevent falls. Take Tylenol if needed for pain. Instructions: Closed Head Injury (DC), Laceration Repair Forms: [employer] (Lebanese) Print Language: GREEK - Clinical Impression Clinical Impression: Head injury, Facial laceration - Scribe Statement The provider has reviewed the documentation as recorded by the Scribe (Lakeshia Gonzalez) Provider Attestation: All medical record entries made by the Scribe were at my direction and personally dictated by me. I have reviewed the chart and agree that the record accurately reflects my personal performance of the history, physical exam, medical decision making, and the department course for this patient. I have also personally directed, reviewed, and agree with the discharge instructions and disposition.
[2018-05-08] MEDS ORDERED: Lidocaine Hydrochloride 5 ML INJ ONE (23:17)
[2018-05-08] MEDS ORDERED: Lidocaine 1% Inj (20ml) INFIL ONE (23:40)
[2018-05-08] MEDS ORDERED: Bacitracin 500 Units/gm Oint Foilpak UD ONE (23:58)
[2018-05-09] MEDS ORDERED: Bacitracin Ointment 30 GM TUBE TOP ONE (00:07)
[2018-05-09 00:10] VITALS: BP 114/65; PULSE 78; RESP 14; TEMP 98.6; O2SAT 100
--- NOTE | 2018-05-09 08:26 | CT ---
Date of service: 05/08/2018 PROCEDURE: CT HEAD WITHOUT CONTRAST. HISTORY: head injury COMPARISON: 02/10/2018 TECHNIQUE: Axial computed tomography images were obtained through the head/brain without intravenous contrast. Radiation dose: Total exam DLP = 982 mGy-cm. This CT exam was performed using one or more of the following dose reduction techniques: Automated exposure control, adjustment of the mA and/or kV according to patient size, and/or use of iterative reconstruction technique. FINDINGS: HEMORRHAGE: No intracranial hemorrhage. BRAIN: No mass effect or edema. Scattered focal lucencies in the subcortical and periventricular white matter suggestive for chronic microvascular ischemic change. VENTRICLES: Unremarkable. No hydrocephalus. CALVARIUM: Unremarkable. PARANASAL SINUSES: Unremarkable as visualized. No significant inflammatory changes. MASTOID AIR CELLS: Unremarkable as visualized. No inflammatory changes. OTHER FINDINGS: 9 millimeter rounded radiopaque/calcific density adjacent to the inner table of the right frontal best seen on series 4, image 19 measuring up to 9 millimeters. This may represent a calcified meningioma versus bony exostosis versus additional etiology. Correlation with MRI may be helpful if clinically indicated. This is not significantly changed since the prior study. IMPRESSION: No acute intracranial hemorrhage. Chronic microvascular ischemic changes. 9 millimeter rounded radiopaque/calcific density adjacent to the inner table of the right frontal best seen on series 4, image 19 measuring up to 9 millimeters. This may represent a calcified meningioma versus bony exostosis versus additional etiology. Correlation with MRI may be helpful if clinically indicated. This is not significantly changed since the prior study. If symptoms persist, consider correlation with MRI. These findings were preliminarily reported at 11:06 p.m. on 05/08/[address] Lenny Werner from [employer].
--- NOTE | 2018-05-09 09:01 | CT ---
Date of service: 05/08/2018 PROCEDURE: CT Cervical Spine without contrast HISTORY: head injury with neck pain COMPARISON: None available. TECHNIQUE: Axial computed tomography images were obtained of the cervical spine without the use of intravenous contrast. Coronal and sagittal reformatted images were created and reviewed. Supplemental 3D volume rendering images. Radiation dose: Total exam DLP = 302.06 mGy-cm. This CT exam was performed using one or more of the following dose reduction techniques: Automated exposure control, adjustment of the mA and/or kV according to patient size, and/or use of iterative reconstruction technique. FINDINGS: VERTEBRAE: No fracture. Normal alignment. No destructive bony lesion. DISCS/SPINAL CANAL/NEURAL FORAMINA: No significant central canal or neural foraminal stenosis. Discs heights are grossly preserved. PARASPINAL SOFT TISSUES: Unremarkable. OTHER FINDINGS: Linear scarring in the apices. IMPRESSION: No significant or acute findings to account for/ related to the clinical presentation. Concordant results (preliminary interpretation) provided by [employer]. Procedure Completed: 22:35. Preliminary Report: Dictated and Authenticated: 23:10. Final Interpretation: 08:59. May 08, 2018
== END 2018-05-09 00:09 | disposition home or self-care (01) ==
LOC: C.ER 20:58
DX: S01.111A Laceration without foreign body of right eyelid and periocular area, initial encounter (principal); W01.0XXA Fall on same level from slipping, tripping and stumbling without subsequent striking against object, initial encounter; Y92.481 Parking lot as the place of occurrence of the external cause

== ENCOUNTER 2018-05-15 17:34 | Emergency (ER) | payer MEDICARE, MEDICAID ==
[2018-05-15 17:34] VITALS: BMI 20.2
[2018-05-15 18:11] VITALS: BP 137/65; PULSE 60; RESP 20; TEMP 99.1; O2SAT 95
--- NOTE | 2018-05-15 19:01 | C.PDOC ---
History Of Present Illness 86 y/o female brought to ED by daughter for suture removal. pt sustained laceration to right proximal lateral eyebrow last week in a trip and fall. pt denies any complications, no headaches, no vomiting. Time Seen by Provider: 05/15/18 18:23 Chief Complaint (Nursing): Suture/Staple Removal History Per: Patient History/Exam Limitations: no limitations Onset/Duration Of Symptoms: Days Ago (7) Current Symptoms Are (Timing): Better Location Of Injury: Right: Head Quality Of Symptoms: Itching Severity: Mild Past Medical History Reviewed: Historical Data, Nursing Documentation, Vital Signs Vital Signs: Last Vital Signs Temp 99.1 F 05/15/18 18:07 Pulse 60 05/15/18 18:07 Resp 20 05/15/18 18:07 BP 137/65 05/15/18 18:07 Pulse Ox 95 05/15/18 18:07 - Medical History PMH: Anemia, Anxiety, Arthritis (R HIP; BACK), Asthma, Back Problems (HX CHRONIC BACK PAIN), CAD, COPD, Diabetes, Fractures (left wrist AND RT. HIP, LEFT LEG), Gastritis, HTN, Hypercholesterolemia, Hyperlipidemia, Osteoporosis, Chronic Kidney Disease Denies: Seizures Surgical History: Coronary Stent (cad cath 02/2016 with stent X2), Endoscopy - [facility] Procedures APPLICATION OF SPLINT (06/18/14) EXCISION OF ASCENDING COLON, ENDO, DIAGN (12/05/16) EXCISION OF STOMACH, ENDO, DIAGN (12/05/16) FLUOROSCOPY OF LEFT HEART USING LOW OSMOLAR CONTRAST (02/05/16) GAIT TRAINING/AMBULAT TREATMENT USING ASSIST EQUIPMENT (11/08/15) INTRODUCE ANTI-INFLAM IN PERIPH NRV, PLEXI, PERC (11/08/15) INTRODUCE REGIONAL ANESTH IN PERIPH NRV, PLEXI, PERC (11/08/15) MEASURE OF CARDIAC SAMPL & PRESSURE, L HEART, PERC APPROACH (02/05/16) NEBULIZER THERAPY (06/16/14) REPAIR LEFT UPPER ARM TENDON, OPEN APPROACH (11/08/15) REPAIR OF HAMMER TOE (07/17/13) REPOSITION LEFT HUMERAL SHAFT WITH INT FIX, OPEN APPROACH (11/08/15) TRANSFUSE NONAUT RED BLOOD CELLS IN PERIPH VEIN, PERC (12/05/16) Family History: States: Unknown Family Hx - Social History Hx Tobacco Use: No (Quit) Hx Alcohol Use: No Hx Substance Use: No - Immunization History Hx Tetanus Toxoid Vaccination: Yes (3 mos. ago) Hx Influenza Vaccination: No Hx Pneumococcal Vaccination: Yes Review Of Systems Constitutional: Negative for: Fever, Chills Eyes: Negative for: Pain Cardiovascular: Negative for: Chest Pain Respiratory: Negative for: Cough Neurological: Negative for: Weakness, Numbness, Headache, Dizziness Physical Exam - Physical Exam Appears: Non-toxic, No Acute Distress Skin: Warm, Dry, Other (well healing circular laceration to right lateral proximal eyebrow, no signs of infection) ED Course And Treatment O2 Sat by Pulse Oximetry: 95 Medical Decision Making Medical Decision Makin sutures removed with no difficulty. steri strips applied. Disposition Counseled Patient/Family Regarding: Diagnosis, Need For Followup - Disposition Disposition: HOME/ ROUTINE Disposition Time: 19:00 Condition: GOOD Additional Instructions: Steri strip will fall off by itself, May wash face Instructions: Stitches Removal Forms: [employer] (Citizen Of [place]), Gen Discharge Inst Citizen Of [place], [employer] (Citizen Of [place]) Print Language: POLISH - Clinical Impression Clinical Impression: Removal of suture
== END 2018-05-15 19:05 | disposition home or self-care (01) ==
LOC: C.ER 17:34
DX: Z48.02 Encounter for removal of sutures (principal)

== ENCOUNTER 2018-05-27 17:25 | Observation (INO) | payer MEDICARE, MEDICAID ==
[2018-05-27 17:25] VITALS: BMI 20.2
[2018-05-27 17:32] VITALS: RESP 20
[2018-05-27] MEDS ORDERED: Aluminum Hydroxide/Magnesium Hydroxide Susp (30 mL) PO STA (18:12)
[2018-05-27 18:29] LABS: BASO % 0.5 % (0.0-2.0); EOS # 0.1 K/uL (0.0-0.7); EOS % 1.2 % (0.0-4.0); HEMOGLOBIN 11.3 g/dL (11.0-16.0); LYMPH # 1.4 K/uL (1.0-4.3); LYMPH % 21.6 % (20.0-40.0); MEAN CELL VOLUME 86.6 fL (81.0-99.0); MEAN CORPUSCULAR HEMOGLOBIN 28.6 pg (27.0-31.0); MEAN CORPUSCULAR HGB CONC 33.1 g/dL (33.0-37.0); MEAN PLATELET VOLUME 8.8 fL (7.2-11.7); MONO # 0.5 K/uL (0.0-0.8); MONO % 8.1 % (0.0-10.0); NEUT # 4.4 K/uL (1.8-7.0); NEUT % 68.6 % (50.0-75.0); RBC 3.96 Mil/uL (3.80-5.20); RED CELL DISTRIBUTION WIDTH 14.4 % (11.5-14.5); WHITE BLOOD COUNT 6.3 K/uL (4.8-10.8)
[2018-05-27 18:52] LABS: ALB/GLOB RATIO 1.4 (1.0-2.1); ALBUMIN 3.8 g/dL (3.5-5.0); CALCIUM 9.4 mg/dl (8.6-10.4)
--- NOTE | 2018-05-27 19:03 | RAD ---
HISTORY: chest pain COMPARISON: Chest x-ray performed 04/06/18 TECHNIQUE: Chest, one view. FINDINGS: LUNGS: Hyperinflation may be seen in the setting of COPD. Fibrosis/scarring, medial right lung apex. Linear atelectasis/scarring, right midlung zone. Please note that chest x-ray has limited sensitivity for the detection of pulmonary masses. PLEURA: No significant pleural effusion identified. No definite pneumothorax . CARDIOVASCULAR: Cardiomegaly. Faint atherosclerotic calcification present. OSSEOUS STRUCTURES: Degenerative changes. VISUALIZED UPPER ABDOMEN: Unremarkable. OTHER FINDINGS: None. IMPRESSION: Fibrosis/scarring, medial right lung apex. Linear atelectasis/scarring, right midlung zone. Hyperinflation may be seen in setting of COPD. Cardiomegaly.
[2018-05-27 19:04] LABS: TROPONIN I 0.015 ng/mL (0.00-0.120)
--- NOTE | 2018-05-27 20:42 | CP.PCM.HP ---
<Tommie Vallecillo - Last Filed: 05/28/18 02:07> History of Present Illness - History of Present Illness History of Present Illness: History obtained through [employer] services, rn pacu ID #[id number] CC: chest pain/ body aches 86 Y F w/ PMHx: DM, HTN, HLD, CAD s/p coronary stent, COPD, asthma, anemia, anxiety and arthritis, presents to ED for chest pain and general body ache. Patient states she always has these pains but for the past day, the pain has increased in severity. Patient describes the pain as a dull achy pain that is throughout the body and 7/10 at its peak. Patient denies fevers, chills, nausea, vomiting, sick contact, recent illness, SOB. Patient is hard of hearing. ROS: Denies SOB, abdominal pain, nausea, vomiting, diarrhea, constipation, headaches, vision changes. PMD: Dr. Gomez PMHx: DM, HTN, HLD, CAD s/p coronary stent, COPD, asthma, anemia, anxiety and arthritis Meds: Aspirin 81mg daily, Amlodipine 10 mg daily, Colace 100mg TID, ferrous Sulfate 325 mg BID, Losartan 25 mg PO daily, Spiriva 18mcg Q24 PSHx: cardiac cath stents - 02/2016, hysterectomy, oophorectomy, cataract surgery Allergies: NKDA FMHx: Mother - asthma, heart disease, at age 92 SHx: Smoked 1ppd x 50 yrs, quit 20 yrs ago; social drinker in the past, denies current use. denies illicit drug use. Patient states she lives with her son Present on Admission - Present on Admission Any Indicators Present on Admission: No Review of Systems - Constitutional Constitutional: absent: Anorexia, Chills, Headache - EENT Eyes: absent: Blind Spots, Discharge, Irritation Nose/Mouth/Throat: absent: Dysphagia, Mouth Pain, Facial Pain - Cardiovascular Cardiovascular: Chest Pain. absent: Dyspnea, Leg Edema, Palpitations - Respiratory Respiratory: absent: Wheezing, Snoring - Gastrointestinal Gastrointestinal: absent: Diarrhea, Heartburn, Loose Stools - Genitourinary Genitourinary: absent: Dysuria, Nocturia, Urinary Hesitance - Musculoskeletal Musculoskeletal: absent: Abnormal Gait, Atrophy, Back Pain, Myalgias - Integumentary Integumentary: Dry Skin. absent: Bleeding Lesions, New Lesions - Neurological Neurological: absent: Numbness, Headaches - Psychiatric Psychiatric: absent: Anhedonia, Confusion, Mood Swings Past Patient History - Infectious Disease Hx of Infectious Diseases: None - Tetanus Immunizations Tetanus Immunization: Unknown - Past Medical History & Family History Past Medical History?: Yes - Past Social History Smoking Status: Never Smoked - CARDIAC Hx Hypercholesterolemia: Yes Hx Hypertension: Yes - PULMONARY Hx Asthma: Yes Hx Chronic Obstructive Pulmonary Disease (COPD): Yes - NEUROLOGICAL Hx Seizures: No - HEENT Hx HEENT Problems: Yes Hx Cataracts: Yes (right eye) Hx Glaucoma: Yes (left eye) - RENAL Hx Chronic Kidney Disease: Yes - HEMATOLOGICAL/ONCOLOGICAL Hx Anemia: Yes - INTEGUMENTARY Hx Dermatological Problems: No - MUSCULOSKELETAL/RHEUMATOLOGICAL Hx Arthritis: Yes (R HIP; BACK) Hx Fractures: Yes (left wrist AND RT. HIP, LEFT LEG) Hx Osteoporosis: Yes - GASTROINTESTINAL Hx Gastritis: Yes - GENITOURINARY/GYNECOLOGICAL Hx Genitourinary Disorders: Yes Other/Comment: fibroid surgery - PSYCHIATRIC Hx Anxiety: Yes Hx Substance Use: No - SURGICAL HISTORY Hx Coronary Stent: Yes (cad cath 02/2016 with stent X2) - ANESTHESIA Hx Anesthesia: Yes Hx Anesthesia Reactions: No Hx Malignant Hyperthermia: No Meds Allergies/Adverse Reactions: Allergies Allergy/AdvReac Type Severity Reaction Status Date / Time No Known Allergies Allergy Verified 05/27/18 17:32 Physical Exam - Constitutional Appears: Well, No Acute Distress - Head Exam Head Exam: ATRAUMATIC, NORMAL INSPECTION, NORMOCEPHALIC - Eye Exam Eye Exam: EOMI, Normal appearance - ENT Exam ENT Exam: Mucous Membranes Moist - Respiratory Exam Respiratory Exam: Clear to Auscultation Bilateral, NORMAL BREATHING PATTERN. absent: Rales, Rhonchi, Wheezes - Cardiovascular Exam Cardiovascular Exam: +S1, +S2. absent: Irregular Rhythm, Systolic Murmur - GI/Abdominal Exam GI & Abdominal Exam: Normal Bowel Sounds, Soft. 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 - Back Exam Back exam: absent: CVA tenderness (L), CVA tenderness (R) - Neurological Exam Neurological exam: Alert, CN II-XII Intact, Oriented x3 - Psychiatric Exam Psychiatric exam: Normal Affect, Normal Mood - Skin Skin Exam: Dry, Intact, Normal Color, Warm Results - Vital Signs Recent Vital Signs: Last Vital Signs Temp 98.5 F 05/27/18 17:30 Pulse 66 05/27/18 17:30 Resp 20 05/27/18 17:30 BP 122/62 05/27/18 17:30 Pulse Ox 95 05/27/18 20:42 - Labs Result Diagrams: 05/27/18 18:26 05/27/18 18:26 Labs: Laboratory Results - last 24 hr 05/27/18 05/27/18 05/27/18 17:38 18:26 18:26 WBC 6.3 RBC 3.96 Hgb 11.3 Hct 34.3 MCV 86.6 MCH 28.6 MCHC 33.1 RDW 14.4 Plt Count 200 MPV 8.8 Neut % (Auto) 68.6 Lymph % (Auto) 21.6 Emmons % (Auto) 8.1 Eos % (Auto) 1.2 Baso % (Auto) 0.5 Neut # (Auto) 4.4 Lymph # (Auto) 1.4 Emmons # (Auto) 0.5 Eos # (Auto) 0.1 Baso # (Auto) 0.0 Sodium 141 Potassium 5.3 H Chloride 103 Carbon Dioxide 27 Anion Gap 17 BUN 26 H Creatinine 1.1 Est GFR ( Amer) 57 Est GFR (Non-Af Amer) 47 POC Glucose (mg/dL) 247 H Random Glucose 220 H Calcium 9.4 Total Bilirubin 0.4 AST 23 ALT 19 Alkaline Phosphatase 84 Troponin I 0.0150 Total Protein 6.5 Albumin 3.8 Globulin 2.7 Albumin/Globulin Ratio 1.4 Assessment & Plan - Assessment and Plan (Free Text) Plan: 86 Y F w/ PMHx: DM, HTN, HLD, CAD s/p coronary stent, COPD, asthma, anemia, anxiety and arthritis, presents to ED for chest pain and general body ache: Chest pain R/o ACS - Vitals stable - Initial trop @ 0.0150 - EKG - LBBB seen on previous visits - F/u Cardio - Dr. David huerta (follows up OP) - F/u rapid influenza - TSH on 02/10/18 WNL, Lipid Panel on 02/10/18 WNL Hyperkalemia - K+ 5.3 - Will repeat AM labs and will consider medical intervention pending level CAD s/p coronary stent - Cardiac cath in 2016 with 2 stents placed - C/w with home medication: ASA 81mg PO daily Crestor 5mg PO HS - No beta-blockers in light of severe COPD HTN Chronic - c/w home medication: - cozaar 25 mg PO daily - norvasc 10 mg PO daily DM Chronic - accuchecks ACHS - Low dose ISS ACHS - hypoglycemic protocol - HgA1c 7.1 (01/08/18) HLD Chronic - Lipid panel on 02/10/18 WNL - C/w home medication: crestor 5mg PO daily COPD/Asthma Chronic - c/w home medication tiotropium 10 mcg INH Anxiety chronic - c/w home medication xanax 1mg PO daily Arthritis chronic - tylenol 650 mg PO PRN pain Anemia chronic - c/w home medication ferrous sulfate 325 mg daily Constipation chronic - c/w home medication colace 100mg TID Prophylaxsis - DVT: SCDs, lovenox 40mg daily - F/u PT/ OT eval - Heart healthy diet - GI: protonix 40mg PO daily <Jose Vidal - Last Filed: 05/28/18 06:33> Results - Vital Signs Recent Vital Signs: Last Vital Signs Temp 98.2 F 05/28/18 04:00 Pulse 60 05/28/18 04:00 Resp 20 05/28/18 04:00 BP 175/75 H 05/28/18 04:00 Pulse Ox 96 05/28/18 04:00 - Labs Result Diagrams: 05/28/18 04:13 05/28/18 04:13 Labs: Laboratory Results - last 24 hr 05/27/18 05/27/18 05/27/18 17:38 18:26 18:26 WBC 6.3 RBC 3.96 Hgb 11.3 Hct 34.3 MCV 86.6 MCH 28.6 MCHC 33.1 RDW 14.4 Plt Count 200 MPV 8.8 Neut % (Auto) 68.6 Lymph % (Auto) 21.6 Emmons % (Auto) 8.1 Eos % (Auto) 1.2 Baso % (Auto) 0.5 Neut # (Auto) 4.4 Lymph # (Auto) 1.4 Emmons # (Auto) 0.5 Eos # (Auto) 0.1 Baso # (Auto) 0.0 Sodium 141 Potassium 5.3 H Chloride 103 Carbon Dioxide 27 Anion Gap 17 BUN 26 H Creatinine 1.1 Est GFR ( Amer) 57 Est GFR (Non-Af Amer) 47 POC Glucose (mg/dL) 247 H Random Glucose 220 H Calcium 9.4 Total Bilirubin 0.4 AST 23 ALT 19 Alkaline Phosphatase 84 Total Creatine Kinase CK-MB (Mass) Troponin I 0.0150 Total Protein 6.5 Albumin 3.8 Globulin 2.7 Albumin/Globulin Ratio 1.4 Influenza Typ A,B (EIA) 05/27/18 05/28/18 05/28/18 22:47 02:27 04:13 WBC RBC Hgb Hct MCV MCH MCHC RDW Plt Count MPV Neut % (Auto) Lymph % (Auto) Emmons % (Auto) Eos % (Auto) Baso % (Auto) Neut # (Auto) Lymph # (Auto) Emmons # (Auto) Eos # (Auto) Baso # (Auto) Sodium 143 Potassium 5.0 Chloride 107 Carbon Dioxide 29 Anion Gap 13 BUN 21 H Creatinine 1.4 H Est GFR ( Amer) 43 Est GFR (Non-Af Amer) 36 POC Glucose (mg/dL) Random Glucose 168 H Calcium 9.2 Total Bilirubin 0.4 AST 19 ALT 19 Alkaline Phosphatase 83 Total Creatine Kinase 58 52 CK-MB (Mass) 1.10 0.85 Troponin I 0.0210 0.0190 Total Protein 6.5 Albumin 3.8 Globulin 2.7 Albumin/Globulin Ratio 1.4 Influenza Typ A,B (EIA) Negative for flu a/b 05/28/18 04:13 WBC 6.3 RBC 3.88 Hgb 11.2 Hct 33.3 L MCV 85.6 MCH 28.8 MCHC 33.6 RDW 14.9 H Plt Count 184 MPV 8.8 Neut % (Auto) 49.0 L Lymph % (Auto) 33.5 Emmons % (Auto) 13.5 H Eos % (Auto) 3.1 Baso % (Auto) 0.9 Neut # (Auto) 3.1 Lymph # (Auto) 2.1 Emmons # (Auto) 0.9 H Eos # (Auto) 0.2 Baso # (Auto) 0.1 Sodium Potassium Chloride Carbon Dioxide Anion Gap BUN Creatinine Est GFR ( Amer) Est GFR (Non-Af Amer) POC Glucose (mg/dL) Random Glucose Calcium Total Bilirubin AST ALT Alkaline Phosphatase Total Creatine Kinase CK-MB (Mass) Troponin I Total Protein Albumin Globulin Albumin/Globulin Ratio Influenza Typ A,B (EIA) Assessment & Plan - Date & Time Date: 05/28/18 (I have seen and examined the patient. I agree with the findings and plan of care as documented by Dr. Vallecillo. Patient with chest pain. History of CAD. ROMIx3 with EKG. Aspirin and Statin. Consult to cardio. 2D Echo. Continue home meds for history of hypertension and Diabetes. Monitor for acute changes.) Time: 06:32 Attending/Attestation - Attestation I have personally seen and examined this patient.: Yes I have fully participated in the care of the patient.: Yes I have reviewed all pertinent clinical information: Yes
--- NOTE | 2018-05-27 20:42 | C.PDOC ---
History Of Present Illness 86 year old female presents to the ED for evaluation of on and off chest pain since yesterday. Patient reports mild shortness of breath. Denies fever, nausea, vomiting, cough, recent travel, sick contact, and any other associated symptoms. Time Seen by Provider: 05/27/18 17:40 Chief Complaint (Nursing): Chest Pain History Per: Patient History/Exam Limitations: no limitations Onset/Duration Of Symptoms: Hrs, Waxing/Waning Current Symptoms Are (Timing): Still Present Recent travel outside of the [place]: No Past Medical History Reviewed: Historical Data, Nursing Documentation, Vital Signs Vital Signs: Last Vital Signs Temp 98.5 F 05/27/18 17:30 Pulse 66 05/27/18 17:30 Resp 20 05/27/18 17:30 BP 122/62 05/27/18 17:30 Pulse Ox 95 05/27/18 17:30 - Medical History PMH: Anemia, Anxiety, Arthritis (R HIP; BACK), Asthma, Back Problems (HX CHRONIC BACK PAIN), CAD, COPD, Diabetes, Fractures (left wrist AND RT. HIP, LEFT LEG), Gastritis, HTN, Hypercholesterolemia, Hyperlipidemia, Osteoporosis, Chronic Kidney Disease Denies: Seizures Surgical History: Coronary Stent (cad cath 02/2016 with stent X2), Endoscopy - [facility] Procedures APPLICATION OF SPLINT (06/18/14) EXCISION OF ASCENDING COLON, ENDO, DIAGN (12/05/16) EXCISION OF STOMACH, ENDO, DIAGN (12/05/16) FLUOROSCOPY OF LEFT HEART USING LOW OSMOLAR CONTRAST (02/05/16) GAIT TRAINING/AMBULAT TREATMENT USING ASSIST EQUIPMENT (11/08/15) INTRODUCE ANTI-INFLAM IN PERIPH NRV, PLEXI, PERC (11/08/15) INTRODUCE REGIONAL ANESTH IN PERIPH NRV, PLEXI, PERC (11/08/15) MEASURE OF CARDIAC SAMPL & PRESSURE, L HEART, PERC APPROACH (02/05/16) NEBULIZER THERAPY (06/16/14) REPAIR LEFT UPPER ARM TENDON, OPEN APPROACH (11/08/15) REPAIR OF HAMMER TOE (07/17/13) REPOSITION LEFT HUMERAL SHAFT WITH INT FIX, OPEN APPROACH (11/08/15) TRANSFUSE NONAUT RED BLOOD CELLS IN PERIPH VEIN, PERC (12/05/16) Family History: States: Unknown Family Hx - Social History Hx Tobacco Use: No (Quit) Hx Alcohol Use: No Hx Substance Use: No - Immunization History Hx Tetanus Toxoid Vaccination: Yes (3 mos. ago) Hx Influenza Vaccination: No Hx Pneumococcal Vaccination: Yes Review Of Systems Except As Marked, All Systems Reviewed And Found Negative. Constitutional: Negative for: Fever, Other (sick contact.) Cardiovascular: Positive for: Chest Pain Respiratory: Negative for: Cough Gastrointestinal: Negative for: Nausea, Vomiting Physical Exam - Physical Exam Appears: Well, No Acute Distress Skin: Normal Color, Warm, Dry Head: Atraumatic, Normacephalic Eye(s): bilateral: Normal Inspection Oral Mucosa: Moist Neck: Normal ROM, Supple Chest: Symmetrical, No Deformity Cardiovascular: Rhythm Regular, No Murmur Respiratory: Normal Breath Sounds, No Rales, No Rhonchi, No Wheezing Gastrointestinal/Abdominal: Normal Exam, Soft, No Tenderness Neurological/Psych: Oriented x3, Normal Speech, Normal Motor, Normal Sensation ED Course And Treatment - Laboratory Results Result Diagrams: 05/27/18 18:26 05/27/18 18:26 ECG Rhythm: Sinus Rhythm Rate From EC O2 Sat by Pulse Oximetry: 95 (RA) Pulse Ox Interpretation: Normal - Other Rad CXR X-Ray: Viewed By Me, Read By Radiologist Interpretation: FINDINGS: LUNGS: Hyperinflation may be seen in the setting of COPD. Fibrosis/scarring, medial right lung apex. Linear atelectasis/scarring, right midlung zone. Please note that chest x-ray has limited sensitivity for the detection of pulmonary masses. PLEURA: No significant pleural effusion identified. No definite pneumothorax . CARDIOVASCULAR: Cardiomegaly. Faint atherosclerotic calcification present. OSSEOUS STRUCTURES: Degenerative changes. VISUALIZED UPPER ABDOMEN: Unremarkable. OTHER FINDINGS: None. IMPRESSION: Fibrosis/scarring, medial right lung apex. Linear atelectasis/scarring, right midlung zone. Hyperinflation may be seen in setting of COPD. Cardiomegaly. Medical Decision Making Medical Decision Making: Plan: --EKG. --Blood sent. --CXR. --Maalox. --Glucose POC. Disposition - Disposition Disposition: HOSPITALIZED Disposition Time: 19:00 Condition: STABLE - Clinical Impression Clinical Impression: Chest pain - Scribe Statement The provider has reviewed the documentation as recorded by the Scribe (Carol Ann Cummins) Provider Attestation: All medical record entries made by the Scribe were at my direction and personall y dictated by me. I have reviewed the chart and agree that the record accurately reflects my personal performance of the history, physical exam, medical decision making, and the department course for this patient. I have also personally directed, reviewed, and agree with the discharge instructions and disposition.
[2018-05-27 23:15] LABS: CK-MB 1.1 ng/mL (0.0-3.38); TROPONIN I 0.021 ng/mL (0.00-0.120)
[2018-05-28] MEDS ORDERED: Albuterol HFA 90 mcg/actuation (8 g) IH PRN (01:00)
[2018-05-28] MEDS ORDERED: Glucagon Recombinant 1 mg Inj IM PRN (01:25)
[2018-05-28] MEDS ORDERED: Dextrose 50% SYRINGE Inj (50 ml) IV PRN (01:25)
[2018-05-28] MEDS ORDERED: Albuterol HFA 90 mcg/actuation (8 g) INH PRN (01:51)
[2018-05-28 04:17] LABS: BASO # 0.1 K/uL (0.0-0.2); BASO % 0.9 % (0.0-2.0); EOS # 0.2 K/uL (0.0-0.7); EOS % 3.1 % (0.0-4.0); HEMOGLOBIN 11.2 g/dL (11.0-16.0); LYMPH # 2.1 K/uL (1.0-4.3); LYMPH % 33.5 % (20.0-40.0); MEAN CELL VOLUME 85.6 fL (81.0-99.0); MEAN CORPUSCULAR HEMOGLOBIN 28.8 pg (27.0-31.0); MEAN CORPUSCULAR HGB CONC 33.6 g/dL (33.0-37.0); MEAN PLATELET VOLUME 8.8 fL (7.2-11.7); MONO # 0.9 K/uL (0.0-0.8); MONO % 13.5 % (0.0-10.0); NEUT # 3.1 K/uL (1.8-7.0); NRBC % 0.1 % (0.0-2.0); RBC 3.88 Mil/uL (3.80-5.20); RED CELL DISTRIBUTION WIDTH 14.9 % (11.5-14.5); WHITE BLOOD COUNT 6.3 K/uL (4.8-10.8)
[2018-05-28 04:27] LABS: ALB/GLOB RATIO 1.4 (1.0-2.1); ALBUMIN 3.8 g/dL (3.5-5.0); CALCIUM 9.2 mg/dl (8.6-10.4)
[2018-05-28 04:38] LABS: CK-MB 0.85 ng/mL (0.0-3.38); TROPONIN I 0.019 ng/mL (0.00-0.120)
[2018-05-28] MEDS ORDERED: Aluminum Hydroxide/Magnesium Hydroxide Susp (30 mL) PO ONE (06:23)
[2018-05-28] MEDS ORDERED: (Novolin 70/30) NPH/Regular 70/30 Units/ml 10 ml vial SC SCH (07:30)
[2018-05-28] MEDS ORDERED: Tiotropium 18 mcg Cap For Inhalation INH SCH (08:00)
--- NOTE | 2018-05-28 08:53 | CP.PCM.PN ---
Subjective - Date & Time of Evaluation Date of Evaluation: 05/28/18 Time of Evaluation: 08:53 - Subjective Subjective: Junaid Lees PGY-1 Medicine Progress Note for Dr. Huston Patient was seen and examined at bedside, no acute events overnight. Patient complains of achy pain around her sternum and complains of a mild headache. Patient is tolerating her diet. She denies diaphoresis, fevers, chills, shortness of breath, abdominal pain, nausea, vomiting, or any other complaints at this time. Objective - Vital Signs/Intake and Output Vital Signs (last 24 hours): Temp Pulse Resp BP Pulse Ox 97.6 F 60 20 171/84 H 97 05/28/18 08:08 05/28/18 08:08 05/28/18 08:08 05/28/18 08:08 05/28/18 08:08 Intake and Output: 05/28/18 05/28/18 06:59 18:59 Intake Total 150 Balance 150 - Medications Medications: Current Medications Acetaminophen (Tylenol 325mg Tab) 650 mg PO Q6 PRN PRN Reason: Pain, Mild (1-3) Albuterol (Ventolin Hfa 90 Mcg/Actuation (8 G)) 1 puff INH RQ6 PRN PRN Reason: Shortness of Breath Alprazolam (Xanax) 1 mg PO DAILY [facility] Amlodipine Besylate (Norvasc) 10 mg PO DAILY [facility] Aspirin (Ecotrin) 81 mg PO DAILY [facility] Dextrose (Dextrose 50% Inj) 0 ml IV STAT PRN; Protocol PRN Reason: Hypoglycemia Protocol Dextrose (Glutose 15) 0 gm PO ONCE PRN; Protocol PRN Reason: Hypoglycemia Protocol Docusate Sodium (Colace) 100 mg PO TIDCC [facility] Enoxaparin Sodium (Lovenox) 40 mg SC DAILY [facility] Ferrous Sulfate (Feosol) 325 mg PO BID [facility] Glucagon (Glucagen Diagnostic Kit) 0 mg IM STAT PRN; Protocol PRN Reason: Hypoglycemia Protocol Dextrose (Dextrose 5% In Water 1000 Ml) 1,000 mls @ 0 mls/hr IV .Q0M PRN; Protocol PRN Reason: Hypoglycemia Protocol Insulin Human Isoph/Insulin Regular (Novolin 70/30 (70/30 Units/Ml) 10 Ml) 0 units SC ACHS [facility]; Protocol Losartan Potassium (Cozaar) 25 mg PO DAILY [facility] Pantoprazole Sodium (Protonix Ec Tab) 40 mg PO DAILY [facility] Rosuvastatin Calcium (Crestor) 5 mg PO HS [facility] Tiotropium [place] (Spiriva) 18 mcg INH RQ24 [facility] - Labs Labs: 05/28/18 04:13 05/28/18 04:13 - Additional Findings Additional findings: - Constitutional Appears: Well, No Acute Distress - Head Exam Head Exam: ATRAUMATIC, NORMAL INSPECTION, NORMOCEPHALIC - Eye Exam Eye Exam: EOMI, Normal appearance - ENT Exam ENT Exam: Mucous Membranes Moist - Respiratory Exam Respiratory Exam: Clear to Auscultation Bilateral, NORMAL BREATHING PATTERN. absent: Rales, Rhonchi, Wheezes - Cardiovascular Exam Cardiovascular Exam: +S1, +S2. absent: Irregular Rhythm, Systolic Murmur - GI/Abdominal Exam GI & Abdominal Exam: Normal Bowel Sounds, Soft. 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 Plan: Chest pain r/o ACS - EKG - LBBB seen on previous visits - F/u Cardio - Dr. David huerta (follows up OP) CAD s/p coronary stent - Cardiac cath in 2016 with 2 stents placed - C/w with home medication: ASA 81mg PO daily, Crestor 5mg PO HS - No beta-blockers in light of severe COPD Hyperkalemia, resolved - Replete as needed - Will continue to monitor Hx of HTN - C/w home medication: Cozaar 25 mg PO daily, Norvasc 10 mg PO daily Hx of DM-2 - Accuchecks ACHS - Low dose ISS ACHS - Hypoglycemia protocol - HgA1c: 7.1 (01/08/18) Hx of HLD - Lipid panel on 02/10/18 WNL - C/w home medication: Crestor 5mg PO daily Hx of COPD/Asthma - C/w home medication: Tiotropium 10 mg INH daily Hx of Anxiety - C/w home medication: Xanax 1mg PO daily Hx of Arthritis - Tylenol 650 mg PO PRN pain Hx of Anemia - C/w home medication: Ferrous sulfate 325 mg daily Constipation - C/w home medication: Colace 100mg TID Prophylaxsis - DVT: SCDs, lovenox 40mg daily - F/u PT/ OT eval - Heart healthy diet - GI: protonix 40mg PO daily
[2018-05-28] MEDS: (Novolin 70/30) NPH/Regular 70/30 Units/ml 10 ml vial SC SCH ×2 (09:54→13:10)
[2018-05-28] MEDS ORDERED: Enoxaparin 40 mg Syringe SC SCH ×2 (10:00)
[2018-05-28] MEDS ORDERED: Pantoprazole 40 mg EC Tab PO SCH (10:00)
--- NOTE | 2018-05-28 14:10 | CP.PCM.DIS ---
Addendum entered and electronically signed by Junaid Lees 05/28/18 16:47: Discussed with patient and her daughter who speaks [place]ian that the patient is having generalized body aches that is chronic. They were educated on the importance to follow up with her primary care Doctor, Dr. Gomez and for possible pain management referral. Patient denies diaphoresis, nausea, vomiting, or chest pain that is radiating upon discharge. Original Note: <Junaid Lees - Last Filed: 05/28/18 14:49> Provider - Provider Date of Admission: 05/27/18 19:37 Attending physician: Dori Huston MD Time Spent in preparation of Discharge (in minutes): 45 Diagnosis - Discharge Diagnosis (1) Chest pain Status: Resolved (2) Hyperkalemia Status: Resolved (3) HTN (hypertension) Status: Chronic (4) HLD (hyperlipidemia) Status: Chronic (5) Anxiety Status: Chronic (6) Arthritis Status: Chronic (7) Anemia Status: Chronic (8) Hypertension Status: Chronic Priority: Medium (9) COPD (chronic obstructive pulmonary disease) Status: Chronic Hospital Course - Lab Results Lab Results: Most Recent Lab Values WBC 6.3 K/uL (4.8-10.8) 05/28/18 04:13 RBC 3.88 Mil/uL (3.80-5.20) 05/28/18 04:13 Hgb 11.2 g/dL (11.0-16.0) 05/28/18 04:13 Hct 33.3 % (34.0-47.0) L 05/28/18 04:13 MCV 85.6 fL (81.0-99.0) 05/28/18 04:13 MCH 28.8 pg (27.0-31.0) 05/28/18 04:13 MCHC 33.6 g/dL (33.0-37.0) 05/28/18 04:13 RDW 14.9 % (11.5-14.5) H 05/28/18 04:13 Plt Count 184 K/uL (130-400) 05/28/18 04:13 MPV 8.8 fL (7.2-11.7) 05/28/18 04:13 Neut % (Auto) 49.0 % (50.0-75.0) L 05/28/18 04:13 Lymph % (Auto) 33.5 % (20.0-40.0) 05/28/18 04:13 [place] % (Auto) 13.5 % (0.0-10.0) H 05/28/18 04:13 Eos % (Auto) 3.1 % (0.0-4.0) 05/28/18 04:13 Baso % (Auto) 0.9 % (0.0-2.0) 05/28/18 04:13 Neut # (Auto) 3.1 K/uL (1.8-7.0) 05/28/18 04:13 Lymph # (Auto) 2.1 K/uL (1.0-4.3) 05/28/18 04:13 [place] # (Auto) 0.9 K/uL (0.0-0.8) H 05/28/18 04:13 Eos # (Auto) 0.2 K/uL (0.0-0.7) 05/28/18 04:13 Baso # (Auto) 0.1 K/uL (0.0-0.2) 05/28/18 04:13 Sodium 143 mmol/L (132-148) 05/28/18 04:13 Potassium 5.0 mmol/L (3.6-5.2) 05/28/18 04:13 Chloride 107 mmol/L (98-107) 05/28/18 04:13 Carbon Dioxide 29 mmol/L (22-30) 05/28/18 04:13 Anion Gap 13 (10-20) 05/28/18 04:13 BUN 21 mg/dL (7-17) H 05/28/18 04:13 Creatinine 1.4 mg/dL (0.7-1.2) H 05/28/18 04:13 Est GFR ( Amer) 43 05/28/18 04:13 Est GFR (Non-Af Amer) 36 05/28/18 04:13 POC Glucose (mg/dL) 290 mg/dL (65-110) H 05/28/18 11:31 Random Glucose 168 mg/dL (65-105) H 05/28/18 04:13 Calcium 9.2 mg/dl (8.6-10.4) 05/28/18 04:13 Total Bilirubin 0.4 mg/dL (0.2-1.3) 05/28/18 04:13 AST 19 U/L (14-36) 05/28/18 04:13 ALT 19 U/L (9-52) 05/28/18 04:13 Alkaline Phosphatase 83 U/L (38-126) 05/28/18 04:13 Total Creatine Kinase 52 U/L (30-135) 05/28/18 04:13 CK-MB (Mass) 0.85 ng/mL (0.0-3.38) 05/28/18 04:13 Troponin I 0.0190 ng/mL (0.00-0.120) 05/28/18 04:13 Total Protein 6.5 g/dL (6.3-8.3) 05/28/18 04:13 Albumin 3.8 g/dL (3.5-5.0) 05/28/18 04:13 Globulin 2.7 gm/dL (2.2-3.9) 05/28/18 04:13 Albumin/Globulin Ratio 1.4 (1.0-2.1) 05/28/18 04:13 Influenza Typ A,B (EIA) Negative for flu a/b (NEGATIVE) 05/28/18 02:27 - Hospital Course Hospital Course: Patient is an 86 year old female with PMH of DM, HTN, HLD, CAD s/p coronary stent, COPD, asthma, anemia, anxiety and arthritis presenting for chest pain and general body ache. Patient states she always has these pains but for the past day, the pain has increased in severity. EKG showed normal sinus rhythm, no ST changes, and LBBB that is unchanged from previous studies. Troponins were negative x 3. Chest xray showed fibrosis/scarring, medial right lung apex. Linear atelectasis/scarring, right midlung zone, hyperinflation may be seen in setting of COPD, and cardiomegaly. Patient was treated with ASA along with her home medications. Cardiology, Dr. Hernandez was consulted and cleared the patient for discharge and instructed the patient to follow up in his office in 1 month. Patient was instructed to resume all of her home medications. She was also instructed to follow up with her primary care doctor in 1-2 weeks. Patient was instructed to resume diet and activities as tolerated. She was also instructed to return to the emergency room for worsening or newly concerning symptoms. Patient is medically stable for discharge. Discharge Exam - Head Exam Head Exam: ATRAUMATIC, NORMAL INSPECTION, NORMOCEPHALIC - Additional Findings Additional findings: - Constitutional Appears: Well, No Acute Distress - Head Exam Head Exam: ATRAUMATIC, NORMAL INSPECTION, NORMOCEPHALIC - Eye Exam Eye Exam: EOMI, Normal appearance - ENT Exam ENT Exam: Mucous Membranes Moist - Respiratory Exam Respiratory Exam: Clear to Auscultation Bilateral, NORMAL BREATHING PATTERN. absent: Rales, Rhonchi, Wheezes - Cardiovascular Exam Cardiovascular Exam: +S1, +S2. absent: Irregular Rhythm, Systolic Murmur - GI/Abdominal Exam GI & Abdominal Exam: Normal Bowel Sounds, Soft. 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 Resume all home medications as prescribed by your primary care doctor 2. Please follow up with your primary care doctor, Dr. Gomez in 1-2 weeks 3. Please follow up with your reinforcing rod layer, Dr. Hernandez in 1 month 4. Resume diet and activity as tolerated 5. Return to the emergency room for worsening or newly concerning symptoms 1. Reanude todos los medicamentos caseros segn lo prescrito por sargent mdico de atencin primaria 2. Por favor, thor un seguimiento con sargent mdico de atencin primaria, el Dr. Gomez, en 1-2 semanas. 3. Por favor thor un seguimiento con sargent cardilogo, el Dr. Hernandez en 1 mes 4. Reanudar dieta y actividad segn lo tolerado. 5. Regrese a la matthias de emergencias por empeoramiento o sntomas nuevos. Referrals: Chuck Gomez MD [Staff Provider] - Andrew Hernandez MD [Staff Provider] - <Dori Huston - Last Filed: 05/28/18 17:53> Provider - Provider Date of Admission: 05/27/18 19:37 Attending physician: Dori Huston MD Hospital Course - Lab Results Lab Results: Most Recent Lab Values WBC 6.3 K/uL (4.8-10.8) 05/28/18 04:13 RBC 3.88 Mil/uL (3.80-5.20) 05/28/18 04:13 Hgb 11.2 g/dL (11.0-16.0) 05/28/18 04:13 Hct 33.3 % (34.0-47.0) L 05/28/18 04:13 MCV 85.6 fL (81.0-99.0) 05/28/18 04:13 MCH 28.8 pg (27.0-31.0) 05/28/18 04:13 MCHC 33.6 g/dL (33.0-37.0) 05/28/18 04:13 RDW 14.9 % (11.5-14.5) H 05/28/18 04:13 Plt Count 184 K/uL (130-400) 05/28/18 04:13 MPV 8.8 fL (7.2-11.7) 05/28/18 04:13 Neut % (Auto) 49.0 % (50.0-75.0) L 05/28/18 04:13 Lymph % (Auto) 33.5 % (20.0-40.0) 05/28/18 04:13 [place] % (Auto) 13.5 % (0.0-10.0) H 05/28/18 04:13 Eos % (Auto) 3.1 % (0.0-4.0) 05/28/18 04:13 Baso % (Auto) 0.9 % (0.0-2.0) 05/28/18 04:13 Neut # (Auto) 3.1 K/uL (1.8-7.0) 05/28/18 04:13 Lymph # (Auto) 2.1 K/uL (1.0-4.3) 05/28/18 04:13 [place] # (Auto) 0.9 K/uL (0.0-0.8) H 05/28/18 04:13 Eos # (Auto) 0.2 K/uL (0.0-0.7) 05/28/18 04:13 Baso # (Auto) 0.1 K/uL (0.0-0.2) 05/28/18 04:13 Sodium 143 mmol/L (132-148) 05/28/18 04:13 Potassium 5.0 mmol/L (3.6-5.2) 05/28/18 04:13 Chloride 107 mmol/L (98-107) 05/28/18 04:13 Carbon Dioxide 29 mmol/L (22-30) 05/28/18 04:13 Anion Gap 13 (10-20) 05/28/18 04:13 BUN 21 mg/dL (7-17) H 05/28/18 04:13 Creatinine 1.4 mg/dL (0.7-1.2) H 05/28/18 04:13 Est GFR ( Amer) 43 05/28/18 04:13 Est GFR (Non-Af Amer) 36 05/28/18 04:13 POC Glucose (mg/dL) 290 mg/dL (65-110) H 05/28/18 11:31 Random Glucose 168 mg/dL (65-105) H 05/28/18 04:13 Calcium 9.2 mg/dl (8.6-10.4) 05/28/18 04:13 Total Bilirubin 0.4 mg/dL (0.2-1.3) 05/28/18 04:13 AST 19 U/L (14-36) 05/28/18 04:13 ALT 19 U/L (9-52) 05/28/18 04:13 Alkaline Phosphatase 83 U/L (38-126) 05/28/18 04:13 Total Creatine Kinase 52 U/L (30-135) 05/28/18 04:13 CK-MB (Mass) 0.85 ng/mL (0.0-3.38) 05/28/18 04:13 Troponin I 0.0190 ng/mL (0.00-0.120) 05/28/18 04:13 Total Protein 6.5 g/dL (6.3-8.3) 05/28/18 04:13 Albumin 3.8 g/dL (3.5-5.0) 05/28/18 04:13 Globulin 2.7 gm/dL (2.2-3.9) 05/28/18 04:13 Albumin/Globulin Ratio 1.4 (1.0-2.1) 05/28/18 04:13 Influenza Typ A,B (EIA) Negative for flu a/b (NEGATIVE) 05/28/18 02:27 Attending/Attestation - Attestation I have personally seen and examined this patient.: Yes I have fully participated in the care of the patient.: Yes I have reviewed all pertinent clinical information, including history, physical exam and plan: Yes Notes (Text): seen and examined this morning. patient was complaining of body aches and pain. No chest pain,no sob cardiac enzymes ok Resident d/w DR Hernandez.follow out pt patient will follow her primary care,stable for discharge
[2018-05-28 17:05] VITALS: BP 144/71; PULSE 62; TEMP 98.2; O2SAT 99
--- NOTE | 2018-05-28 20:20 | CARD ---
APPROVED REPORT Date of service: 05/28/2018 EKG Measurement Heart [id number] <Conclusion> Normal sinus rhythm Left bundle branch block Abnormal ECG
--- NOTE | 2018-05-29 23:51 | CARD ---
APPROVED REPORT Date of service: 05/27/2018 EKG Measurement Heart [id number] <Conclusion> Normal sinus rhythm Left bundle branch block Abnormal ECG
== END 2018-05-28 16:47 | disposition home or self-care (01) ==
LOC: C.ER 17:25 → C.9E 19:37 → C.6T 20:50
PROVIDERS: ADMIT Internal Medicine; ATTEND Internal Medicine
DX: R07.9 Chest pain, unspecified (principal); E87.5 Hyperkalemia; I25.10 Atherosclerotic heart disease of native coronary artery without angina pectoris; Z95.5 Presence of coronary angioplasty implant and graft; E11.22 Type 2 diabetes mellitus with diabetic chronic kidney disease; I12.9 Hypertensive chronic kidney disease with stage 1 through stage 4 chronic kidney disease, or unspecified chronic kidney disease; M16.11 Unilateral primary osteoarthritis, right hip; M54.9 Dorsalgia, unspecified; G89.29 Other chronic pain; E78.00 Pure hypercholesterolemia, unspecified; E78.5 Hyperlipidemia, unspecified; F41.9 Anxiety disorder, unspecified; J44.9 Chronic obstructive pulmonary disease, unspecified; M81.0 Age-related osteoporosis without current pathological fracture; N18.9 Chronic kidney disease, unspecified; Z82.5 Family history of asthma and other chronic lower respiratory diseases; Z87.891 Personal history of nicotine dependence; D64.9 Anemia, unspecified
CPT/HCPCS: 36415; 71045; 80053; 82948; 84484; 85025; 87804; 93005; 94640; 96372; 97116; 97162; 97166; 97530; 99285; G0378; G8978; G8979; G8987; G8988; J1650

== ENCOUNTER 2018-06-28 19:56 | Emergency (ER) | payer MEDICARE, MEDICAID ==
[2018-06-28 19:57] VITALS: BMI 20.2
[2018-06-28 20:03] VITALS: O2SAT 97
--- NOTE | 2018-06-28 20:30 | C.PDOC ---
History Of Present Illness Patient brought in by daughter after patient was hallucinating last night. Patient thought that three dolls she has in her bedroom were her nephews and were crying, she was going to call the police on her son because he was not taking care of her dolls. Denies fever, chills, nausea, or vomiting. Patient is currently awake, alert, and orientedx3; denies any issues with the dolls. Time Seen by Provider: 06/28/18 20:29 Chief Complaint (Nursing): Altered Mental Status History Per: Patient History/Exam Limitations: None Onset/Duration Of Symptoms: Days Onset Of Symptoms: Cannot Confirm Onset Current Symptoms Are (Timing): Better Usual Baseline: Alert Oriented Exacerbating Factor(s): Unknown Speech Is: Normal Severity: Mild Pain Scale Rating Of: 3 Recent travel outside of the [place]: No Associated Symptoms: denies: Fever, Chills, Vomiting, Diarrhea Past Medical History Reviewed: Historical Data, Nursing Documentation, Vital Signs Vital Signs: Last Vital Signs Temp 98.8 F 06/28/18 20:01 Pulse 81 06/28/18 20:01 Resp 20 06/28/18 20:01 BP 171/75 H 06/28/18 20:01 Pulse Ox 97 06/28/18 20:01 - Medical History PMH: Anemia, Anxiety, Arthritis, Asthma, Back Problems (HX CHRONIC BACK PAIN), CAD, COPD, Diabetes, Fractures (left wrist AND RT. HIP, LEFT LEG), Gastritis, HTN, Hypercholesterolemia, Hyperlipidemia, Osteoporosis, Chronic Kidney Disease Denies: Seizures Surgical History: Coronary Stent (cad cath 02/2016 with stent X2), Endoscopy - [facility] Procedures APPLICATION OF SPLINT (06/18/14) EXCISION OF ASCENDING COLON, ENDO, DIAGN (12/05/16) EXCISION OF STOMACH, ENDO, DIAGN (12/05/16) FLUOROSCOPY OF LEFT HEART USING LOW OSMOLAR CONTRAST (02/05/16) GAIT TRAINING/AMBULAT TREATMENT USING ASSIST EQUIPMENT (11/08/15) INTRODUCE ANTI-INFLAM IN PERIPH NRV, PLEXI, PERC (11/08/15) INTRODUCE REGIONAL ANESTH IN PERIPH NRV, PLEXI, PERC (11/08/15) MEASURE OF CARDIAC SAMPL & PRESSURE, L HEART, PERC APPROACH (02/05/16) NEBULIZER THERAPY (06/16/14) REPAIR LEFT UPPER ARM TENDON, OPEN APPROACH (11/08/15) REPAIR OF HAMMER TOE (07/17/13) REPOSITION LEFT HUMERAL SHAFT WITH INT FIX, OPEN APPROACH (11/08/15) TRANSFUSE NONAUT RED BLOOD CELLS IN PERIPH VEIN, PERC (12/05/16) Family History: States: No Known Family Hx - Social History Hx Tobacco Use: No (Quit) Hx Alcohol Use: No Hx Substance Use: No - Immunization History Hx Tetanus Toxoid Vaccination: Yes (3 mos. ago) Hx Influenza Vaccination: No Hx Pneumococcal Vaccination: Yes Review Of Systems Constitutional: Negative for: Fever, Chills Cardiovascular: Negative for: Chest Pain, Palpitations Respiratory: Negative for: Cough, Shortness of Breath Gastrointestinal: Negative for: Nausea, Vomiting Neurological: Positive for: Altered Mental Status Physical Exam - Physical Exam Appears: Non-toxic, Other (Thin) Skin: Warm, Dry Head: Normacephalic Oral Mucosa: Moist Chest: Symmetrical, No Tenderness Cardiovascular: Rhythm Regular Respiratory: No Rales, No Rhonchi, No Wheezing Gastrointestinal/Abdominal: Soft, No Tenderness Neurological/Psych: Oriented x3 ED Course And Treatment - Laboratory Results Result Diagrams: 06/28/18 21:10 06/28/18 21:10 ECG: Interpreted By Me, Viewed By Me O2 Sat by Pulse Oximetry: 97 (Room air) Pulse Ox Interpretation: Normal - Radiology CXR: Interpreted by Me, Viewed By Me CXR Interpretation: Yes: COPD, Other (unchnaged from 05/27/18). No: Infiltrates, Fracture, Pnemothorax Progress Note: CT head, EKG, blood work, CXR, and urinalysis ordered. Medical Decision Making Medical Decision Making: Upon provider reevaluation patient is feeling better, is medically stable, and requires no further treatment in the ED at this time. Patient will be discharged home . Counseling was provided and all questions were answered regarding diagnosis and need for follow up with dr gomez. There is agreement to discharge plan. Return if symptoms persist or worsen. Disposition Counseled Patient/Family Regarding: Studies Performed, Diagnosis, Need For Followup - Disposition Referrals: Chuck Gomez MD [Staff Provider] - Disposition: HOME/ ROUTINE Disposition Time: 20:30 Condition: FAIR Additional Instructions: Please return if symptoms recur Instructions: Anxiety, Adult (DC) Forms: [facility] (Chinese), General Discharge Instructions Print Language: ENGLISH - Clinical Impression Clinical Impression: Diabetes, Hyperglycemia - Scribe Statement The provider has reviewed the documentation as recorded by the Scribe Enrique Aparicio All medical record entries made by the Shashiibe were at my direction and personally dictated by me. I have reviewed the chart and agree that the record accurately reflects my personal performance of the history, physical exam, medical decision making, and the department course for this patient. I have also personally directed, reviewed, and agree with the discharge instructions and disposition.
[2018-06-28 21:14] LABS: BASO # 0.1 K/uL (0.0-0.2); BASO % 0.8 % (0.0-2.0); EOS # 0.1 K/uL (0.0-0.7); EOS % 2.1 % (0.0-4.0); HEMOGLOBIN 12.8 g/dL (11.0-16.0); LYMPH # 1.2 K/uL (1.0-4.3); LYMPH % 17.9 % (20.0-40.0); MEAN CELL VOLUME 86.3 fL (81.0-99.0); MEAN CORPUSCULAR HEMOGLOBIN 28.8 pg (27.0-31.0); MEAN CORPUSCULAR HGB CONC 33.4 g/dL (33.0-37.0); MEAN PLATELET VOLUME 9.2 fL (7.2-11.7); MONO # 0.6 K/uL (0.0-0.8); MONO % 9.1 % (0.0-10.0); NEUT # 4.6 K/uL (1.8-7.0); NEUT % 70.1 % (50.0-75.0); RBC 4.46 Mil/uL (3.80-5.20); RED CELL DISTRIBUTION WIDTH 14.7 % (11.5-14.5); WHITE BLOOD COUNT 6.5 K/uL (4.8-10.8)
[2018-06-28 21:21] LABS: VENOUS BLOOD GAS PCO2 60 mmHg (40-60); VENOUS BLOOD GAS PO2 17 mm/Hg (30-55); VENOUS BLOOD PH 7.33 (7.32-7.43)
[2018-06-28 21:22] LABS: INR 1.1; PROTHROMBIN TIME 12.3 SECONDS (9.7-12.2)
[2018-06-28 21:25] VITALS: BP 173/85; PULSE 77; RESP 18; TEMP 98.5
[2018-06-28 21:28] LABS: ALB/GLOB RATIO 1.6 (1.0-2.1); ALBUMIN 4.6 g/dL (3.5-5.0); ALT/SGPT 20 U/L (9-52); AST/SGOT 31 U/L (14-36); BLOOD UREA NITROGEN 30 mg/dL (7-17); CALCIUM 9.4 mg/dl (8.6-10.4); GFR NON-AFRICAN AMERICAN 53; LIPASE 27 U/L (23-300)
--- NOTE | 2018-06-29 09:12 | CT ---
Date of service: 06/28/2018 PROCEDURE: CT HEAD WITHOUT CONTRAST. HISTORY: AMS COMPARISON: 05/08/2018. TECHNIQUE: Axial computed tomography images were obtained through the head/brain without intravenous contrast. Radiation dose: Total exam DLP = 898.5 mGy-cm. This CT exam was performed using one or more of the following dose reduction techniques: Automated exposure control, adjustment of the mA and/or kV according to patient size, and/or use of iterative reconstruction technique. FINDINGS: HEMORRHAGE: No intracranial hemorrhage. BRAIN: Probable right frontal meningioma, calcified. This measures approximately 9 x 11 x 14 mm. It is extra-axial and unchanged from prior examination of 05/08/2018. Diffuse age-appropriate cerebral atrophy. Moderate patchy and confluent periventricular and deep/subcortical white matter lucency consistent with microvascular ischemic change. No evidence of acute infarct. 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 VENTRICLES: Unremarkable. No hydrocephalus. CALVARIUM: Unremarkable. PARANASAL SINUSES: Unremarkable as visualized. No significant inflammatory changes. MASTOID AIR CELLS: Unremarkable as visualized. No inflammatory changes. OTHER FINDINGS: There narrowing of the right external auditory canal. It is not clear whether this is due to thickening of the jules or intra canalicular soft tissue density. Direct visual inspection is advised. IMPRESSION: No evidence of acute infarct. Chronic white matter ischemic change and mild atrophy. Probable right frontal meningioma. Loss of the normal air-filled right external auditory canal. Correlate with direct visual inspection for either thickening of the jules or soft tissue density within the canal. The preliminary findings for this examination were reported by [facility] Radiology at 9:05 p.m. on 06/28/2018. There is discordance of this report with the preliminary findings. Findings regarding the right external auditory canal were not described in the preliminary report of this examination.
--- NOTE | 2018-06-29 17:30 | RAD ---
Date of service: 06/28/2018 PROCEDURE: CHEST RADIOGRAPH, 1 VIEW HISTORY: AMS COMPARISON: 05/27/2018 FINDINGS: LUNGS: Linear scar in right apex unchanged. No infiltrate. PLEURA: No pneumothorax or pleural fluid seen. CARDIOVASCULAR: No aortic atherosclerotic calcification present. Normal. OSSEOUS STRUCTURES: No significant abnormalities. VISUALIZED UPPER ABDOMEN: Normal. OTHER FINDINGS: None. IMPRESSION: No active disease.
== END 2018-06-28 21:57 | disposition home or self-care (01) ==
LOC: C.ER 19:56
DX: E11.65 Type 2 diabetes mellitus with hyperglycemia (principal); E78.00 Pure hypercholesterolemia, unspecified; I12.9 Hypertensive chronic kidney disease with stage 1 through stage 4 chronic kidney disease, or unspecified chronic kidney disease; N18.9 Chronic kidney disease, unspecified; J44.9 Chronic obstructive pulmonary disease, unspecified; M81.0 Age-related osteoporosis without current pathological fracture; I25.10 Atherosclerotic heart disease of native coronary artery without angina pectoris

== ENCOUNTER 2018-06-29 01:44 | Emergency (ER) | payer MEDICARE, MEDICAID ==
[2018-06-29 01:44] VITALS: BMI 20.2
--- NOTE | 2018-06-29 01:50 | C.PDOC ---
History Of Present Illness Patient returns to ED because daughter states she began seeing things and talking to dolls again believing they're abandoned children. Patient was seen earlier today where she was medically cleared initially. Denies any medical complaints at this time. Time Seen by Provider: 06/29/18 01:50 Chief Complaint (Nursing): Psychiatric Evaluation History Per: Patient, Family History/Exam Limitations: no limitations Onset/Duration Of Symptoms: Hrs Current Symptoms Are (Timing): Still Present Suicide/Self Injury Attempted (Context): None Modifying Factor(s): None Severity: None Pain Scale Rating Of: 0 Associated Symptoms: Other (Hallucinating). denies: Depression, Suicidal Thoughts Involuntary Hold By: None Recent travel outside of the [place]: No Past Medical History Reviewed: Historical Data, Nursing Documentation, Vital Signs - Medical History PMH: Anemia, Anxiety, Arthritis, Asthma, Back Problems (HX CHRONIC BACK PAIN), CAD, COPD, Diabetes, Fractures (left wrist AND RT. HIP, LEFT LEG), Gastritis, HTN, Hypercholesterolemia, Hyperlipidemia, Osteoporosis, Chronic Kidney Disease Denies: Seizures Surgical History: Coronary Stent (cad cath 02/2016 with stent X2), Endoscopy - [facility] Procedures APPLICATION OF SPLINT (06/18/14) EXCISION OF ASCENDING COLON, ENDO, DIAGN (12/05/16) EXCISION OF STOMACH, ENDO, DIAGN (12/05/16) FLUOROSCOPY OF LEFT HEART USING LOW OSMOLAR CONTRAST (02/05/16) GAIT TRAINING/AMBULAT TREATMENT USING ASSIST EQUIPMENT (11/08/15) INTRODUCE ANTI-INFLAM IN PERIPH NRV, PLEXI, PERC (11/08/15) INTRODUCE REGIONAL ANESTH IN PERIPH NRV, PLEXI, PERC (11/08/15) MEASURE OF CARDIAC SAMPL & PRESSURE, L HEART, PERC APPROACH (02/05/16) NEBULIZER THERAPY (06/16/14) REPAIR LEFT UPPER ARM TENDON, OPEN APPROACH (11/08/15) REPAIR OF HAMMER TOE (07/17/13) REPOSITION LEFT HUMERAL SHAFT WITH INT FIX, OPEN APPROACH (11/08/15) TRANSFUSE NONAUT RED BLOOD CELLS IN PERIPH VEIN, PERC (12/05/16) Family History: States: No Known Family Hx - Social History Hx Tobacco Use: No (Quit) Hx Alcohol Use: No Hx Substance Use: No - Immunization History Hx Tetanus Toxoid Vaccination: Yes (3 mos. ago) Hx Influenza Vaccination: No Hx Pneumococcal Vaccination: Yes Review Of Systems Constitutional: Negative for: Fever, Chills Cardiovascular: Negative for: Chest Pain, Palpitations Respiratory: Negative for: Cough, Shortness of Breath Gastrointestinal: Negative for: Nausea, Vomiting Neurological: Negative for: Weakness, Numbness Physical Exam - Physical Exam Appears: Non-toxic Skin: Warm, Dry Head: Normacephalic Oral Mucosa: Moist Chest: Symmetrical, No Tenderness Cardiovascular: Rhythm Regular Respiratory: No Rales, No Rhonchi, No Wheezing Gastrointestinal/Abdominal: Soft, No Tenderness Neurological/Psych: Other (Orientedx2) ED Course And Treatment Progress Note: Urinalysis ordered. Disposition Counseled Patient/Family Regarding: Studies Performed, Diagnosis, Need For Followup, Rx Given - Disposition Referrals: Chuck Gomez MD [Staff Provider] - Disposition: HOME/ ROUTINE Disposition Time: 01:50 Condition: FAIR Additional Instructions: Please return if symptoms recur Prescriptions: Cephalexin [Keflex] 500 mg PO TID #21 capsule Instructions: Urinary Tract Infection, Adult (DC) Forms: [employer] (Yakut) Print Language: SINHALA - Clinical Impression Clinical Impression: UTI (urinary tract infection) - Scribe Statement The provider has reviewed the documentation as recorded by the Scribe Enrique Aparicio All medical record entries made by the Scribe were at my direction and personally dictated by me. I have reviewed the chart and agree that the record accurately reflects my personal performance of the history, physical exam, medical decision making, and the department course for this patient. I have also personally directed, reviewed, and agree with the discharge instructions and disposition.
[2018-06-29 01:53] VITALS: BP 152/74; PULSE 67; RESP 16; TEMP 98.6; O2SAT 98
[2018-06-29 03:38] LABS: SQUAMOUS EPITHIAL 21 /hpf (0-5); URINE BACTERIA MANY (<OCC); URINE BILIRUBIN NEGATIVE (NEGATIVE); URINE BLOOD 1+ (NEGATIVE); URINE CLARITY Hazy (Clear); URINE COLOR Yellow (YELLOW); URINE GLUCOSE (UA) NORMAL (Normal); URINE LEUKOCYTE ESTERASE 3+ Leu/uL (Negative); URINE PROTEIN 2+ mg/dL (NEGATIVE); URINE UROBILINOGEN NORMAL mg/dL (0.2-1.0)
[2018-06-29] MEDS ORDERED: Piperacillin/Tazobact 3.375 gm 100 ML IVPB STA (03:40)
[2018-06-29 03:50] LABS: BARBITURATES, UR NEGATIVE (NEGATIVE); BENZODIAZEPINES, UR NEGATIVE (NEGATIVE); PHENCYCLIDINE, UR NEGATIVE (NEGATIVE)
[2018-06-29 03:51] LABS: OPIATES, UR POSITIVE (NEGATIVE)
[2018-06-29] MEDS ORDERED: Piperacillin/Tazobact 3.375 gm 100 ML IVPB ONE (03:54)
== END 2018-06-29 04:20 | disposition home or self-care (01) ==
LOC: C.ER 01:44
DX: N39.0 Urinary tract infection, site not specified (principal)
CPT/HCPCS: 81001; 87086; 96374; 99284; G0480; J2543

== ENCOUNTER 2018-09-16 15:02 | Emergency (ER) | payer MEDICARE, MEDICAID ==
[2018-09-16 15:03] VITALS: BMI 20.2
[2018-09-16] MEDS ORDERED: Sodium Chloride 0.9% 500 ML IV ONE (16:56)
[2018-09-16] MEDS ORDERED: Sodium Chloride 0.9% 1,000 ML ONE (17:13)
--- NOTE | 2018-09-16 17:42 | C.PDOC ---
History Of Present Illness 87 y/o female w/PMhx of HTN, DM, hypercholesterolemia, CAD, and COPD, presents to the ER complaining of periodic, constant epigastric abdominal pain which has been present for the past 3 days. Patient states that there is no radiation of the pain. Patient reports that she has constipation and she did not have BM in the past few days. She also notes that she has decreased appetite. Patient is s/p endoscopy 6 months ago. She denies fever,chills, CP, SOB, nausea, vomiting, dysuria, diarrhea, hematuria. Time Seen by Provider: 09/16/18 16:19 Chief Complaint (Nursing): Abdominal Pain History Per: Patient History/Exam Limitations: no limitations Onset/Duration Of Symptoms: Days Current Symptoms Are (Timing): Still Present Severity: Moderate Location Of Pain/Discomfort: Epigastric Quality Of Discomfort: "Pain" Past Medical History Reviewed: Historical Data, Nursing Documentation, Vital Signs Vital Signs: Last Vital Signs Temp 99 F 09/16/18 15:19 Pulse 68 09/16/18 15:19 Resp 16 09/16/18 15:19 BP 168/65 H 09/16/18 15:19 Pulse Ox 95 09/16/18 15:19 - Medical History PMH: Anemia, Anxiety, Arthritis, Asthma, Back Problems (HX CHRONIC BACK PAIN), CAD, COPD, Diabetes, Fractures (left wrist AND RT. HIP, LEFT LEG), Gastritis, HTN, Hypercholesterolemia, Hyperlipidemia, Osteoporosis, Chronic Kidney Disease Surgical History: Coronary Stent (cad cath 02/2016 with stent X2), Endoscopy - [facility] Procedures APPLICATION OF SPLINT (06/18/14) EXCISION OF ASCENDING COLON, ENDO, DIAGN (12/05/16) EXCISION OF STOMACH, ENDO, DIAGN (12/05/16) FLUOROSCOPY OF LEFT HEART USING LOW OSMOLAR CONTRAST (02/05/16) GAIT TRAINING/AMBULAT TREATMENT USING ASSIST EQUIPMENT (11/08/15) INTRODUCE ANTI-INFLAM IN PERIPH NRV, PLEXI, PERC (11/08/15) INTRODUCE REGIONAL ANESTH IN PERIPH NRV, PLEXI, PERC (11/08/15) MEASURE OF CARDIAC SAMPL & PRESSURE, L HEART, PERC APPROACH (02/05/16) NEBULIZER THERAPY (06/16/14) REPAIR LEFT UPPER ARM TENDON, OPEN APPROACH (11/08/15) REPAIR OF HAMMER TOE (07/17/13) REPOSITION LEFT HUMERAL SHAFT WITH INT FIX, OPEN APPROACH (11/08/15) TRANSFUSE NONAUT RED BLOOD CELLS IN PERIPH VEIN, PERC (12/05/16) Family History: States: No Known Family Hx - Social History Hx Tobacco Use: No (Quit) Hx Alcohol Use: No Hx Substance Use: No - Immunization History Hx Tetanus Toxoid Vaccination: Yes (3 mos. ago) Hx Influenza Vaccination: No Hx Pneumococcal Vaccination: Yes Review Of Systems Constitutional: Negative for: Fever, Chills Cardiovascular: Negative for: Chest Pain, Palpitations Respiratory: Negative for: Cough, Shortness of Breath Gastrointestinal: Positive for: Abdominal Pain, Constipation. Negative for: Nausea, Vomiting, Diarrhea Genitourinary: Negative for: Dysuria, Hematuria Skin: Negative for: Rash Physical Exam - Physical Exam Appears: Well, Non-toxic, Other (mild distress) Skin: Normal Color, Warm, Dry, No Rash Head: Normacephalic Eye(s): bilateral: Normal Inspection Oral Mucosa: Moist Neck: Supple Chest: Symmetrical Cardiovascular: Rhythm Regular Respiratory: Normal Breath Sounds, No Rales, No Rhonchi, No Wheezing Gastrointestinal/Abdominal: Bowel Sounds, Soft, Tenderness (mild epigastric TTP, (+) midline surgical scar inferior to umbilicus), No Guarding, No Rebound Back: Normal Inspection, No CVA Tenderness Extremity: Normal ROM Pulses: Left Dorsalis Pedis: Normal, Right Dorsalis Pedis: Normal Neurological/Psych: Oriented x3 ED Course And Treatment - Laboratory Results Result Diagrams: 09/16/18 17:39 ECG: Interpreted By Me, Viewed By Me (NSR 63 bpm, left axis deviation, LBBB, no acute ST changes) ECG Interpretation: No Acute Changes (unchanged LBBB from 05/28/18), Abnormal O2 Sat by Pulse Oximetry: 95 (RA) Pulse Ox Interpretation: Normal Progress Note: Blood work, UA, EKG, Obstructive series ordered and reviewed. Patient given IV NS bolus, IV protonicx, PO Magnesiu citrate. Disposition - Disposition Disposition Time: 19:15 Condition: STABLE Forms: [facility] (Syrian) - Clinical Impression Clinical Impression: Epigastric abdominal pain, Constipation - Scribe Statement The provider has reviewed the documentation as recorded by the Brionna Wills Provider Attestation: All medical record entries made by the Brionna were at my direction and personally dictated by me. I have reviewed the chart and agree that the record accurately reflects my personal performance of the history, physical exam, medical decision making, and the department course for this patient. I have also personally directed, reviewed, and agree with the discharge instructions and d isposition. Physician Patient Turnover Patient Signed Over To: Arun Gamez Handoff Comments: pending ARASH, UA
[2018-09-16 17:46] LABS: BASO % 0.7 % (0.0-2.0); EOS # 0.2 K/uL (0.0-0.7); EOS % 2.7 % (0.0-4.0); HEMOGLOBIN 13.9 g/dL (11.0-16.0); LYMPH # 2.3 K/uL (1.0-4.3); LYMPH % 36.2 % (20.0-40.0); MEAN CELL VOLUME 89.4 fL (81.0-99.0); MEAN CORPUSCULAR HEMOGLOBIN 29.7 pg (27.0-31.0); MEAN CORPUSCULAR HGB CONC 33.3 g/dL (33.0-37.0); MEAN PLATELET VOLUME 9.3 fL (7.2-11.7); MONO # 0.5 K/uL (0.0-0.8); MONO % 8.7 % (0.0-10.0); NEUT # 3.3 K/uL (1.8-7.0); NEUT % 51.7 % (50.0-75.0); NRBC % 0.1 % (0.0-2.0); RBC 4.67 Mil/uL (3.80-5.20); RED CELL DISTRIBUTION WIDTH 14.7 % (11.5-14.5); WHITE BLOOD COUNT 6.3 K/uL (4.8-10.8)
[2018-09-16] MEDS ORDERED: Magnesium Citrate Oral SOL (300 ml) PO ONE (17:51)
[2018-09-16] MEDS ORDERED: Magnesium Citrate Oral SOL (300 ml) ONE (18:34)
[2018-09-16 19:26] VITALS: RESP 19
[2018-09-16 19:42] LABS: ALB/GLOB RATIO 1.3 (1.0-2.1); ALBUMIN 3.7 g/dL (3.5-5.0); CALCIUM 8.4 mg/dl (8.6-10.4)
[2018-09-16 19:58] LABS: SQUAMOUS EPITHIAL 1 /hpf (0-5); URINE BILIRUBIN NEGATIVE (NEGATIVE); URINE BLOOD 1+ (NEGATIVE); URINE CLARITY Hazy (Clear); URINE COLOR Straw (YELLOW); URINE GLUCOSE (UA) NORMAL (Normal); URINE LEUKOCYTE ESTERASE NEG Leu/uL (Negative); URINE PROTEIN 2+ mg/dL (NEGATIVE); URINE UROBILINOGEN NORMAL mg/dL (0.2-1.0)
[2018-09-16] MEDS ORDERED: Iohexol 350mg/ml 100 ML ONE (20:55)
[2018-09-16 21:54] VITALS: BP 170/74
[2018-09-16 23:49] VITALS: PULSE 80; TEMP 98; O2SAT 100
--- NOTE | 2018-09-17 08:22 | CT ---
Date of service: 09/16/2018 PROCEDURE: CT HEAD WITHOUT CONTRAST. HISTORY: headache COMPARISON: None available. TECHNIQUE: Axial computed tomography images were obtained through the head/brain without intravenous contrast. Radiation dose: Total exam DLP = 950.35 mGy-cm. This CT exam was performed using one or more of the following dose reduction techniques: Automated exposure control, adjustment of the mA and/or kV according to patient size, and/or use of iterative reconstruction technique. FINDINGS: HEMORRHAGE: No intracranial hemorrhage. Punctate hyperdensity at the left frontal extra-axial space on series 2, image 21 likely represent some volume averaging with the adjacent calvarium. BRAIN: No mass effect or edema. Scattered focal lucencies in the subcortical and periventricular white matter suggestive for chronic microvascular ischemic change. Diffuse generalized parenchymal atrophy. Punctate bilateral basal ganglia calcifications. Probable small lacunar infarct in the left cerebellum. Punctate right caudate head lacunar infarct. Punctate right basal ganglia lacunar infarct. VENTRICLES: Unremarkable. No hydrocephalus. CALVARIUM: Unremarkable. PARANASAL SINUSES: Mild mucosal thickening of the ethmoid air cells. MASTOID AIR CELLS: Unremarkable as visualized. No inflammatory changes. OTHER FINDINGS: None. IMPRESSION: Chronic microvascular ischemic change. Diffuse generalized parenchymal atrophy. Sinus mucosal disease. If symptoms persists, consider correlation with MRI. A preliminary report was generated at 10:17 p.m. on 09/16/[address] Andrew Olivas from [facility] [employer].
--- NOTE | 2018-09-17 09:31 | RAD ---
Date of service: 09/16/2018 PROCEDURE: Radiographs of the chest and abdomen (obstructive series) HISTORY: CONSTIPATION COMPARISON: No prior. TECHNIQUE: AP radiograph of the chest, with upright and supine radiographs of the abdomen. FINDINGS: CHEST: Lungs: No consolidation. Scarring right upper lobe. Biapical pleural thickening. Cardiovascular: Borderline prominent heart size. No pulmonary vascular congestion. There is presence of aortic atherosclerotic calcification on x-ray. Pleura: No pleural fluid. No pneumothorax. Biapical pleural thickening noted Other findings: There are nondisplaced lateral right rib fractures the mid hemithorax level these are difficult to see with certainty on the 06/28/2018 study-there may air may not have been present this part of the anatomy is difficult to assess for similarity due to differences in technique between the 2 exams. ABDOMEN AND PELVIS: Bowel: Moderate stool retention. No evidence of mechanical obstruction. Free air: None. Bones: A nondisplaced lateral right rib fractures-as discussed above. Thoraco lumbar spondylosis. Osteopenia. Probable Schmorl's node like indentations of the upper lumbar spine. Facet hypertrophic arthrosis L5-S1. Concomitant mild minimal endplate compression deformity of L3 and L2 possible. Clinical correlation advised. Probable right bone island iliac bone Other findings: Hemipelvic phlebolith Cholecystectomy clips. IMPRESSION: No pulmonary infiltrate. Scarring right upper lobe. Biapical pleural thickening Moderate stool retention. No bowel obstruction. No evidence of mechanical bowel obstruction. Generalized osteopenia. Thoraco lumbar spondylosis. Nondisplaced right lateral rib fractures possibly 6 and 7. No pneumothorax appreciated. Prominent Schmorl's node indentations and/or concomitant compression deformities L2-L3 lumbar vertebral body. Correlate clinically. Other findings as above. Comments: Study marked for PA review .
--- NOTE | 2018-09-17 10:36 | CT ---
Date of service: 09/16/2018 PROCEDURE: CT Abdomen and Pelvis with contrast HISTORY: abd pain COMPARISON: CT abdomen and pelvis without IV contrast performed 02/10/18 TECHNIQUE: Contrast dose: 100 mL Visipaque 320 IV Radiation dose: Total exam DLP = 229.95 mGy-cm. This CT exam was performed using one or more of the following dose reduction techniques: Automated exposure control, adjustment of the mA and/or kV according to patient size, and/or use of iterative reconstruction technique. FINDINGS: LOWER THORAX: No visible consolidation, pleural effusion, or pneumothorax. Partially imaged cardiomegaly. Moderate hiatal hernia/distal esophageal wall thickening. LIVER: Hypoattenuation of the liver compatible with hepatic steatosis. GALLBLADDER AND BILE DUCTS: Intrahepatic and extrahepatic biliary dilatation in the setting of cholecystectomy. PANCREAS: Diffuse atrophy. SPLEEN: Scattered splenic calcifications, possibly granulomas. ADRENALS: Unremarkable. KIDNEYS AND URETERS: The kidneys enhance symmetrically. Mild fullness of bilateral renal collecting systems. No obstructing calculus identified. Left renal cyst. Too small to characterize renal hypodensities; statistically likely cysts. VASCULATURE: No aortic aneurysm. Atherosclerotic calcifications/mural plaque involving the 4aorta. BOWEL: Stomach is nondistended. Lack of oral contrast limits evaluation for bowel pathology. Bowel loops appear within normal limits of caliber without evidence of obstruction. Diverticulosis without CT evidence of acute diverticulitis. Moderate retained colonic fecal material. Rectal wall thickening; correlate clinically. APPENDIX: The appendix appears within normal limits of caliber. No secondary signs of acute appendicitis. PERITONEUM: No significant free fluid. No definite free air. LYMPH NODES: No bulky adenopathy identified. BLADDER: Distended urinary bladder, otherwise unremarkable. REPRODUCTIVE: Uterus is absent consistent with hysterectomy. BONES: Osseous demineralization. Degenerative changes. Re-identified L2 compression fracture deformity. OTHER FINDINGS: None. IMPRESSION: Mild fullness of bilateral renal collecting systems in the setting of distended urinary bladder. No obstructing calculus identified. Rectal wall appears thickened; correlate clinically for possibility of proctitis. Follow-up as indicated including colonoscopy if indicated. Constipation. Diverticulosis without CT evidence of acute diverticulitis. Mild intrahepatic and extrahepatic biliary ductal dilatation in the setting of cholecystectomy. Additional findings as above. Preliminary impression was provided by Melon
== END 2018-09-17 | disposition home or self-care (01) ==
LOC: C.ER 15:02
DX: K59.00 Constipation, unspecified (principal); R10.13 Epigastric pain
CPT/HCPCS: 70450; 74022; 74177; 80053; 81001; 82948; 83690; 85025; 93005; 96374; 99285; C9113; J7040; Q9967

== ENCOUNTER 2018-10-01 19:09 | Observation (INO) | payer MEDICARE, MEDICAID ==
[2018-10-01 19:09] VITALS: BMI 20.2
--- NOTE | 2018-10-01 19:33 | C.PDOC ---
History Of Present Illness Patient presents stating she was involved in an argument with her family and felt very anxious. Denies suicidal or homicidal ideation. Also complaining of some shortness of breath and chest pail. non radiating. Dull aching discomfort. Speaking in complete sentences Time Seen by Provider: 10/01/18 19:32 Chief Complaint (Nursing): Anxiety History Per: Patient History/Exam Limitations: no limitations Onset/Duration Of Symptoms: Hrs Current Symptoms Are (Timing): Still Present Severity: Moderate Pain Scale Rating Of: 4 Reports Recently: Seen In ED, Treated By A Physician, Hospitalized Recent travel outside of the [place]: No Additional History Per: Patient Past Medical History Reviewed: Historical Data, Nursing Documentation, Vital Signs Vital Signs: Last Vital Signs Temp 98.1 F 10/01/18 19:20 Pulse 77 10/01/18 19:20 Resp 16 10/01/18 19:20 BP 192/77 H 10/01/18 19:20 Pulse Ox 98 10/01/18 19:20 - Medical History PMH: Anemia, Anxiety, Arthritis, Asthma, Back Problems (HX CHRONIC BACK PAIN), CAD, COPD, Diabetes, Fractures (left wrist AND RT. HIP, LEFT LEG), Gastritis, HTN, Hypercholesterolemia, Hyperlipidemia, Osteoporosis, Chronic Kidney Disease Denies: Seizures Surgical History: Coronary Stent (cad cath 02/2016 with stent X2), Endoscopy - [facility] Procedures APPLICATION OF SPLINT (06/18/14) EXCISION OF ASCENDING COLON, ENDO, DIAGN (12/05/16) EXCISION OF STOMACH, ENDO, DIAGN (12/05/16) FLUOROSCOPY OF LEFT HEART USING LOW OSMOLAR CONTRAST (02/05/16) GAIT TRAINING/AMBULAT TREATMENT USING ASSIST EQUIPMENT (11/08/15) INTRODUCE ANTI-INFLAM IN PERIPH NRV, PLEXI, PERC (11/08/15) INTRODUCE REGIONAL ANESTH IN PERIPH NRV, PLEXI, PERC (11/08/15) MEASURE OF CARDIAC SAMPL & PRESSURE, L HEART, PERC APPROACH (02/05/16) NEBULIZER THERAPY (06/16/14) REPAIR LEFT UPPER ARM TENDON, OPEN APPROACH (11/08/15) REPAIR OF HAMMER TOE (07/17/13) REPOSITION LEFT HUMERAL SHAFT WITH INT FIX, OPEN APPROACH (11/08/15) TRANSFUSE NONAUT RED BLOOD CELLS IN PERIPH VEIN, PERC (12/05/16) Family History: States: No Known Family Hx - Social History Hx Tobacco Use: No (Quit) Hx Alcohol Use: No Hx Substance Use: No - Immunization History Hx Tetanus Toxoid Vaccination: Yes (3 mos. ago) Hx Influenza Vaccination: No Hx Pneumococcal Vaccination: Yes Review Of Systems Constitutional: Negative for: Fever, Chills Cardiovascular: Negative for: Chest Pain, Palpitations Respiratory: Negative for: Cough, Shortness of Breath Gastrointestinal: Negative for: Nausea, Vomiting Neurological: Negative for: Weakness, Numbness Psych: Positive for: Anxiety. Negative for: Suicidal ideation, Other (Homicidal ideation) Physical Exam - Physical Exam Appears: Non-toxic Skin: Warm, Dry Head: Normacephalic Oral Mucosa: Moist Neck: Supple Chest: Symmetrical, No Tenderness Cardiovascular: Rhythm Regular Respiratory: No Rales, No Rhonchi, No Wheezing Gastrointestinal/Abdominal: Soft, No Tenderness Back: No CVA Tenderness Extremity: No Tenderness Extremity: Bilateral: Atraumatic Neurological/Psych: Oriented x3, Normal Speech, Normal Cognition Gait: Other (Ambulating with cane) ED Course And Treatment - Laboratory Results Result Diagrams: 10/01/18 20:34 10/01/18 20:34 ECG: Interpreted By Me, Viewed By Me ECG Rhythm: Sinus Rhythm (60), L BBB, Nonspecific Changes (unchanged from 09/16/18) O2 Sat by Pulse Oximetry: 98 (Room air) Pulse Ox Interpretation: Normal - Radiology CXR: Interpreted by Me, Viewed By Me Progress Note: EKG, blood work, CXR, and urinalysis ordered. Aspirin administered. Disposition Discussed With DrTierney: Jose Vidal Comment: accepted the pt on his service and took over the care at 10:02 PM Counseled Patient/Family Regarding: Studies Performed, Diagnosis - Disposition Disposition: HOSPITALIZED Disposition Time: 19:33 Condition: FAIR Forms: [facility] (Yakut) - POA Present On Arrival: Poor Glycemic Control - Clinical Impression Clinical Impression: Anxiety, Uncontrolled diabetes mellitus, CHF (congestive heart failure), Chest pain - Scribe Statement The provider has reviewed the documentation as recorded by the Scribe Enrique Aparicio All medical record entries made by the Scribe were at my direction and personally dictated by me. I have reviewed the chart and agree that the record accurately reflects my personal performance of the history, physical exam, medical decision making, and the department course for this patient. I have also personally directed, reviewed, and agree with the discharge instructions and disposition. Decision To Admit - Pt Status Changed To: Hospital Disposition Of: Observation - . Bed Request Type: Telemetry Admitting Physician: Jose Vidal Patient Diagnosis: Anxiety, Uncontrolled diabetes mellitus, CHF (congestive heart failure), Chest pain
[2018-10-01] MEDS ORDERED: Aspirin 325 mg EC Tablets PO STA (19:45)
[2018-10-01] MEDS ORDERED: Aspirin 325 mg EC Tablets PO ONE (20:20)
[2018-10-01 20:40] LABS: BASO % 0.6 % (0.0-2.0); EOS # 0.1 K/uL (0.0-0.7); EOS % 1.6 % (0.0-4.0); HEMOGLOBIN 11.9 g/dL (11.0-16.0); LYMPH # 1.9 K/uL (1.0-4.3); LYMPH % 29.9 % (20.0-40.0); MEAN CELL VOLUME 89.4 fL (81.0-99.0); MEAN CORPUSCULAR HEMOGLOBIN 28.7 pg (27.0-31.0); MEAN CORPUSCULAR HGB CONC 32.1 g/dL (33.0-37.0); MEAN PLATELET VOLUME 9.7 fL (7.2-11.7); MONO # 0.7 K/uL (0.0-0.8); MONO % 10.4 % (0.0-10.0); NEUT # 3.6 K/uL (1.8-7.0); NEUT % 57.5 % (50.0-75.0); RBC 4.15 Mil/uL (3.80-5.20); RED CELL DISTRIBUTION WIDTH 14.2 % (11.5-14.5); WHITE BLOOD COUNT 6.3 K/uL (4.8-10.8)
[2018-10-01 20:55] LABS: ALB/GLOB RATIO 1.4 (1.0-2.1); ALBUMIN 4.1 g/dL (3.5-5.0); CALCIUM 8.9 mg/dl (8.6-10.4)
[2018-10-01 21:06] LABS: PROTHROMBIN TIME 10.8 SECONDS (9.7-12.2); TROPONIN I 0.029 ng/mL (0.00-0.120)
[2018-10-01 21:19] LABS: SQUAMOUS EPITHIAL 1 /hpf (0-5); URINE BACTERIA OCC (<OCC); URINE BILIRUBIN NEGATIVE (NEGATIVE); URINE BLOOD NEGATIVE (NEGATIVE); URINE CLARITY Clear (Clear); URINE COLOR Yellow (YELLOW); URINE GLUCOSE (UA) 2+ mg/dL (Normal); URINE PROTEIN 2+ mg/dL (NEGATIVE); URINE UROBILINOGEN NORMAL mg/dL (0.2-1.0)
[2018-10-01 21:21] LABS: URINE LEUKOCYTE ESTERASE 1+ Leu/uL (Negative)
--- NOTE | 2018-10-01 22:46 | CP.PCM.HP ---
<ShariLive long - Last Filed: 10/02/18 00:23> History of Present Illness - History of Present Illness History of Present Illness: PGY-1 History and Physical [address]. Vidal Patient is an 86 Y F w/ PMHx: DM, HTN, HLD, CHF, CAD s/p coronary stent, COPD, asthma, anemia, anxiety and arthritis, presents to ED for chest pain. Patient states that her chest pain is associated with her asthma/COPD symptoms. Patient was hospitalized at [facility] one week ago for similar symptoms, and was discharged following normal cardiac workup. Pain does not radiate anywhere specifically, though she says when chest pain comes she has aches in her whole body. She also states having mild shortness of breath. Denies fevers, chills, cough, n/v/d/c. PMHx: DM, HTN, HLD, CAD s/p coronary stent, CHF, COPD, asthma, anemia, anxiety and arthritis Meds: Aspirin 81mg daily, Amlodipine 10 mg daily, Colace 100mg TID, ferrous Sulfate 325 mg BID, Losartan 25 mg PO daily, Spiriva 18mcg Q24 PSHx: cardiac cath stents - 02/2016, hysterectomy, oophorectomy, cataract surgery Allergies: NKDA FMHx: Mother - asthma, heart disease, at age 92 SHx: Smoked 1ppd x 50 yrs, quit 20 yrs ago; social drinker in the past, denies current use. denies illicit drug use. Patient states she lives with her son PMD: Dr. Gomez Present on Admission - Present on Admission Any Indicators Present on Admission: No Review of Systems - Constitutional Constitutional: absent: Chills, Fever - EENT Eyes: absent: Blurred Vision, Diplopia - Cardiovascular Cardiovascular: Chest Pain, Chest Pain at Rest. absent: Chest Pain with Act ivity, Pain Radiating to Arm/Neck/Jaw, Palpitations, Radiating Pain - Respiratory Respiratory: absent: Cough, Wheezing Additional comments: mild shortness of breath - Gastrointestinal Gastrointestinal: absent: Constipation, Diarrhea, Nausea, Vomiting - Genitourinary Genitourinary: absent: Dysuria, Flank Pain - Musculoskeletal Musculoskeletal: absent: Back Pain, Neck Pain Additional comments: body aches - Neurological Neurological: absent: Confusion, Dizziness, Numbness, Headaches - Psychiatric Psychiatric: absent: Anxiety, Depression - Hematologic/Lymphatic Hematologic: absent: Easy Bleeding, Easy Bruising Past Patient History - Infectious Disease Hx of Infectious Diseases: None - Tetanus Immunizations Tetanus Immunization: Unknown - Past Medical History & Family History Past Medical History?: Yes - Past Social History Smoking Status: Former Smoker - CARDIAC Hx Hypercholesterolemia: Yes Hx Hypertension: Yes - PULMONARY Hx Asthma: Yes Hx Chronic Obstructive Pulmonary Disease (COPD): Yes - NEUROLOGICAL Hx Seizures: No - HEENT Hx HEENT Problems: Yes Hx Cataracts: Yes (right eye) Hx Glaucoma: Yes (left eye) - RENAL Hx Chronic Kidney Disease: Yes - HEMATOLOGICAL/ONCOLOGICAL Hx Anemia: Yes - INTEGUMENTARY Hx Dermatological Problems: No - MUSCULOSKELETAL/RHEUMATOLOGICAL Hx Arthritis: Yes Hx Fractures: Yes (left wrist AND RT. HIP, LEFT LEG) Hx Osteoporosis: Yes - GASTROINTESTINAL Hx Gastritis: Yes - GENITOURINARY/GYNECOLOGICAL Hx Genitourinary Disorders: Yes Other/Comment: fibroid surgery - PSYCHIATRIC Hx Anxiety: Yes Hx Substance Use: No - SURGICAL HISTORY Hx Coronary Stent: Yes (cad cath 02/2016 with stent X2) - ANESTHESIA Hx Anesthesia: Yes Hx Anesthesia Reactions: No Hx Malignant Hyperthermia: No Meds Allergies/Adverse Reactions: Allergies Allergy/AdvReac Type Severity Reaction Status Date / Time No Known Allergies Allergy Verified 09/16/18 15:18 Physical Exam - Constitutional Appears: Non-toxic, No Acute Distress - Head Exam Head Exam: ATRAUMATIC, NORMOCEPHALIC - Eye Exam Eye Exam: EOMI, Normal appearance - ENT Exam ENT Exam: Mucous Membranes Moist - Neck Exam Neck exam: Positive for: Full Rom - Respiratory Exam Respiratory Exam: Clear to Auscultation Bilateral, NORMAL BREATHING PATTERN. absent: Rales, Rhonchi, Wheezes - Cardiovascular Exam Cardiovascular Exam: REGULAR RHYTHM, +S1, +S2. absent: Diastolic murmur, JVD, Systolic Murmur Additional comments: Chest pain non-reproducible - GI/Abdominal Exam GI & Abdominal Exam: Normal Bowel Sounds, Soft. absent: Tenderness - Extremities Exam Extremities exam: Positive for: normal inspection, pedal pulses present. Negative for: pedal edema, tenderness - Neurological Exam Neurological exam: Alert, CN II-XII Intact, Oriented x3 - Psychiatric Exam Psychiatric exam: Normal Affect, Normal Mood - Skin Skin Exam: Dry, Intact Results - Vital Signs Recent Vital Signs: Last Vital Signs Temp 98.1 F 10/01/18 19:20 Pulse 62 10/01/18 20:54 Resp 20 10/01/18 20:54 BP 150/60 10/01/18 20:54 Pulse Ox 98 10/01/18 22:04 - Labs Result Diagrams: 10/01/18 20:34 10/01/18 20:34 Labs: Laboratory Results - last 24 hr 10/01/18 10/01/18 10/01/18 20:34 20:34 20:34 WBC 6.3 RBC 4.15 Hgb 11.9 D Hct 37.1 MCV 89.4 MCH 28.7 MCHC 32.1 L RDW 14.2 Plt Count 168 MPV 9.7 Neut % (Auto) 57.5 Lymph % (Auto) 29.9 [place] % (Auto) 10.4 H Eos % (Auto) 1.6 Baso % (Auto) 0.6 Neut # (Auto) 3.6 Lymph # (Auto) 1.9 [place] # (Auto) 0.7 Eos # (Auto) 0.1 Baso # (Auto) 0.0 PT 10.8 INR 1.0 APTT 26 Sodium 137 Potassium 4.2 Chloride 103 Carbon Dioxide 26 Anion Gap 13 BUN 28 H Creatinine 1.3 H Est GFR ( Amer) 47 Est GFR (Non-Af Amer) 39 Random Glucose 242 H D Calcium 8.9 Total Bilirubin 0.4 AST 31 ALT 9 D Alkaline Phosphatase 71 Troponin I 0.0290 NT-Pro-B Natriuret Pep 1150 H Total Protein 7.0 Albumin 4.1 Globulin 2.8 Albumin/Globulin Ratio 1.4 Lipase 36 Urine Color Urine Clarity Urine pH Ur Specific [place] Urine Protein Urine Glucose (UA) Urine Ketones Urine Blood Urine Nitrate Urine Bilirubin Urine Urobilinogen Ur Leukocyte Esterase Urine WBC (Auto) Urine RBC (Auto) Ur Squamous Epith Cells Urine Bacteria 10/01/18 21:00 WBC RBC Hgb Hct MCV MCH MCHC RDW Plt Count MPV Neut % (Auto) Lymph % (Auto) [place] % (Auto) Eos % (Auto) Baso % (Auto) Neut # (Auto) Lymph # (Auto) [place] # (Auto) Eos # (Auto) Baso # (Auto) PT INR APTT Sodium Potassium Chloride Carbon Dioxide Anion Gap BUN Creatinine Est GFR ( Amer) Est GFR (Non-Af Amer) Random Glucose Calcium Total Bilirubin AST ALT Alkaline Phosphatase Troponin I NT-Pro-B Natriuret Pep Total Protein Albumin Globulin Albumin/Globulin Ratio Lipase Urine Color Yellow Urine Clarity Clear Urine pH 6.0 Ur Specific [place] 1.008 Urine Protein 2+ H Urine Glucose (UA) 2+ H Urine Ketones Negative Urine Blood Negative Urine Nitrate Negative Urine Bilirubin Negative Urine Urobilinogen Normal Ur Leukocyte Esterase 1+ H Urine WBC (Auto) 7 H Urine RBC (Auto) 1 Ur Squamous Epith Cells 1 Urine Bacteria Occ H Assessment & Plan - Assessment and Plan (Free Text) Assessment: 86 Y F w/ PMHx: DM, HTN, HLD, CAD s/p coronary stent, COPD, asthma, anemia, anxiety and arthritis, presents to ED for chest pain and general body ache: Chest pain R/o ACS - Vitals stable - Initial trop 0.0290. EKG unchanged from previous EKG. --Repeat EKG/Trops - F/u Cardio - Dr. David huerta (follows up OP) - TSH on 02/10/18 WNL, Lipid Panel on 02/10/18 WNL CAD s/p coronary stent - Cardiac cath in 2016 with 2 stents placed - Home meds ASA 81mg PO daily Crestor 5mg PO HS - Avoid beta-blockers in light of severe COPD CHF - Home meds ASA 81mg PO daily Crestor 5mg PO HS - Echo - f/u HTN Chronic - Home meds - cozaar 25 mg PO daily - norvasc 10 mg PO daily DM Chronic - accuchecks ACHS - Low dose ISS ACHS - hypoglycemic protocol - HgA1c 7.1 (01/08/18) HLD Chronic - Lipid panel on 02/10/18 WNL - Home meds crestor 5mg PO daily COPD/Asthma Chronic - Home meds Spiriva 18 mcg INH daily Anxiety chronic - Xanax 1mg daily held for now - risk for fall/delerium in elderly Arthritis chronic - tylenol 650 mg PO PRN pain Anemia chronic - Home meds ferrous sulfate 325 mg daily Constipation chronic - Home meds colace 100mg TID Prophylaxsis - DVT: SCDs, Heparin 5000 U SC Q8 - Heart healthy diet Assessment and plan d/w Dr. Macry Garvey, PGY-1 <Jose Vidal - Last Filed: 10/02/18 06:29> Results - Vital Signs Recent Vital Signs: Last Vital Signs Temp 98.4 F 10/01/18 23:35 Pulse 70 10/02/18 04:00 Resp 20 10/01/18 23:35 BP 128/58 L 10/01/18 23:35 Pulse Ox 96 10/01/18 23:35 - Labs Result Diagrams: 10/01/18 20:34 10/01/18 20:34 Labs: Laboratory Results - last 24 hr 10/01/18 10/01/18 10/01/18 20:34 20:34 20:34 WBC 6.3 RBC 4.15 Hgb 11.9 D Hct 37.1 MCV 89.4 MCH 28.7 MCHC 32.1 L RDW 14.2 Plt Count 168 MPV 9.7 Neut % (Auto) 57.5 Lymph % (Auto) 29.9 [place] % (Auto) 10.4 H Eos % (Auto) 1.6 Baso % (Auto) 0.6 Neut # (Auto) 3.6 Lymph # (Auto) 1.9 [place] # (Auto) 0.7 Eos # (Auto) 0.1 Baso # (Auto) 0.0 PT 10.8 INR 1.0 APTT 26 Sodium 137 Potassium 4.2 Chloride 103 Carbon Dioxide 26 Anion Gap 13 BUN 28 H Creatinine 1.3 H Est GFR ( Amer) 47 Est GFR (Non-Af Amer) 39 Random Glucose 242 H D Calcium 8.9 Total Bilirubin 0.4 AST 31 ALT 9 D Alkaline Phosphatase 71 Total Creatine Kinase CK-MB (Mass) Troponin I 0.0290 NT-Pro-B Natriuret Pep 1150 H Total Protein 7.0 Albumin 4.1 Globulin 2.8 Albumin/Globulin Ratio 1.4 Lipase 36 Urine Color Urine Clarity Urine pH Ur Specific [place] Urine Protein Urine Glucose (UA) Urine Ketones Urine Blood Urine Nitrate Urine Bilirubin Urine Urobilinogen Ur Leukocyte Esterase Urine WBC (Auto) Urine RBC (Auto) Ur Squamous Epith Cells Urine Bacteria 10/01/18 10/02/18 21:00 01:35 WBC RBC Hgb Hct MCV MCH MCHC RDW Plt Count MPV Neut % (Auto) Lymph % (Auto) [place] % (Auto) Eos % (Auto) Baso % (Auto) Neut # (Auto) Lymph # (Auto) [place] # (Auto) Eos # (Auto) Baso # (Auto) PT INR APTT Sodium Potassium Chloride Carbon Dioxide Anion Gap BUN Creatinine Est GFR ( Amer) Est GFR (Non-Af Amer) Random Glucose Calcium Total Bilirubin AST ALT Alkaline Phosphatase Total Creatine Kinase 102 CK-MB (Mass) 2.49 Troponin I 0.0570 NT-Pro-B Natriuret Pep Total Protein Albumin Globulin Albumin/Globulin Ratio Lipase Urine Color Yellow Urine Clarity Clear Urine pH 6.0 Ur Specific [place] 1.008 Urine Protein 2+ H Urine Glucose (UA) 2+ H Urine Ketones Negative Urine Blood Negative Urine Nitrate Negative Urine Bilirubin Negative Urine Urobilinogen Normal Ur Leukocyte Esterase 1+ H Urine WBC (Auto) 7 H Urine RBC (Auto) 1 Ur Squamous Epith Cells 1 Urine Bacteria Occ H Assessment & Plan - Date & Time Date: 10/02/18 (I have seen and examined the patient. I agree with the findings and plan of care as documented by Dr. Garvey. Patient with chest pain. History of CHF. ROMIx3 with EKG. Aspirin and Statin. Also with history of diabetes. NISS and accuchecks. Continue home meds. History of anxiety. Continue home meds. Monitor for acute changes.) Time: 06:28 Attending/Attestation - Attestation I have personally seen and examined this patient.: Yes I have fully participated in the care of the patient.: Yes I have reviewed all pertinent clinical information: Yes
[2018-10-02] MEDS ORDERED: Glucagon Recombinant 1 mg Inj IM PRN (00:36)
[2018-10-02] MEDS ORDERED: Dextrose 50% SYRINGE Inj (50 ml) IV PRN (00:36)
[2018-10-02 02:16] LABS: CK-MB 2.49 ng/mL (0.0-3.38); TROPONIN I 0.057 ng/mL (0.00-0.120)
[2018-10-02 07:37] LABS: BASO % 0.7 % (0.0-2.0); EOS # 0.2 K/uL (0.0-0.7); EOS % 3.2 % (0.0-4.0); HEMOGLOBIN 11.9 g/dL (11.0-16.0); LYMPH # 2.3 K/uL (1.0-4.3); LYMPH % 37.5 % (20.0-40.0); MEAN CELL VOLUME 89.1 fL (81.0-99.0); MEAN CORPUSCULAR HEMOGLOBIN 29.4 pg (27.0-31.0); MEAN PLATELET VOLUME 9.4 fL (7.2-11.7); MONO # 0.7 K/uL (0.0-0.8); MONO % 11.2 % (0.0-10.0); NEUT # 2.9 K/uL (1.8-7.0); NEUT % 47.4 % (50.0-75.0); RBC 4.05 Mil/uL (3.80-5.20); RED CELL DISTRIBUTION WIDTH 14.4 % (11.5-14.5)
[2018-10-02] MEDS: Tiotropium 18 mcg Cap For Inhalation INH SCH (07:57)
[2018-10-02 08:13] LABS: ALB/GLOB RATIO 1.5 (1.0-2.1); ALBUMIN 3.9 g/dL (3.5-5.0); CALCIUM 8.8 mg/dl (8.6-10.4)
[2018-10-02 08:22] LABS: CK-MB 1.87 ng/mL (0.0-3.38); TROPONIN I 0.048 ng/mL (0.00-0.120)
[2018-10-02] MEDS: (Novolin R) Insulin Human Regular 100 units/ml vial SC SCH ×4 (08:33→22:15)
--- NOTE | 2018-10-02 09:23 | RAD ---
Chest x-ray single frontal view History: Chest pain. COMPARISON: 06/28/2018 Findings: Vertically oriented linear increased markings at the right lung apex which may represent focal scarring. Not significantly changed since the prior study. Additional etiologies not excluded. Correlation with chest CT may be helpful if clinically indicated. Small nodular density at the right lung base may represent vessel on end. Biapical pleural thickening with upper lobe granulomatous changes. Diffuse increased interstitial lung markings. Bilateral hilar prominence. Atherosclerotic calcification at the aortic knob. Tortuous ectatic aorta. Degenerative changes in the spine and shoulders. Impression: Vertically oriented linear increased markings at the right lung apex which may represent focal scarring. Not significantly changed since the prior study. Additional etiologies not excluded. Correlation with chest CT may be helpful if clinically indicated. Small nodular density at the right lung base may represent vessel on end. Biapical pleural thickening with upper lobe granulomatous changes. Diffuse increased interstitial lung markings. Bilateral hilar prominence. Atherosclerotic calcification at the aortic knob. Tortuous ectatic aorta.
[2018-10-02 17:29] LABS: CK-MB 1.8 ng/mL (0.0-3.38); TROPONIN I 0.026 ng/mL (0.00-0.120)
--- NOTE | 2018-10-02 17:31 | CP.PCM.CON ---
Past Patient History - Infectious Disease Hx of Infectious Diseases: None - Tetanus Immunizations Tetanus Immunization: Unknown - Past Medical History & Family History Past Medical History?: Yes - Past Social History Smoking Status: Former Smoker - CARDIAC Hx Hypercholesterolemia: Yes Hx Hypertension: Yes - PULMONARY Hx Asthma: Yes Hx Chronic Obstructive Pulmonary Disease (COPD): Yes - NEUROLOGICAL Hx Seizures: No - HEENT Hx HEENT Problems: Yes Hx Cataracts: Yes (right eye) Hx Glaucoma: Yes (left eye) - RENAL Hx Chronic Kidney Disease: Yes - HEMATOLOGICAL/ONCOLOGICAL Hx Anemia: Yes - INTEGUMENTARY Hx Dermatological Problems: No - MUSCULOSKELETAL/RHEUMATOLOGICAL Hx Arthritis: Yes Hx Fractures: Yes (left wrist AND RT. HIP, LEFT LEG) Hx Osteoporosis: Yes - GASTROINTESTINAL Hx Gastritis: Yes - GENITOURINARY/GYNECOLOGICAL Hx Genitourinary Disorders: Yes Other/Comment: fibroid surgery - PSYCHIATRIC Hx Anxiety: Yes Hx Substance Use: No - SURGICAL HISTORY Hx Coronary Stent: Yes (cad cath 02/2016 with stent X2) - ANESTHESIA Hx Anesthesia: Yes Hx Anesthesia Reactions: No Hx Malignant Hyperthermia: No Meds Allergies/Adverse Reactions: Allergies Allergy/AdvReac Type Severity Reaction Status Date / Time No Known Allergies Allergy Verified 09/16/18 15:18 - Medications Medications: Current Medications Acetaminophen (Tylenol 325mg Tab) 650 mg PO Q6 PRN PRN Reason: Pain, Mild (1-3) Amlodipine Besylate (Norvasc) 10 mg PO DAILY [facility] Last Admin: 10/02/18 09:13 Dose: 10 mg Aspirin (Ecotrin) 81 mg PO DAILY [facility] Last Admin: 10/02/18 09:13 Dose: 81 mg Dextrose (Dextrose 50% Inj) 0 ml IV STAT PRN; Protocol PRN Reason: Hypoglycemia Protocol Dextrose (Glutose 15) 0 gm PO ONCE PRN; Protocol PRN Reason: Hypoglycemia Protocol Docusate Sodium (Colace) 100 mg PO TID [facility] Last Admin: 10/02/18 13:15 Dose: 100 mg Ferrous Sulfate (Feosol) 325 mg PO DAILY [facility] Last Admin: 10/02/18 09:13 Dose: 325 mg Glucagon (Glucagen Diagnostic Kit) 0 mg IM STAT PRN; Protocol PRN Reason: Hypoglycemia Protocol Heparin Sodium (Porcine) (Heparin) 5,000 units SC Q8 [facility] Last Admin: 10/02/18 13:15 Dose: 5,000 units Dextrose (Dextrose 5% In Water 1000 Ml) 1,000 mls @ 0 mls/hr IV .Q0M PRN; Protocol PRN Reason: Hypoglycemia Protocol Insulin Human Regular (Novolin R) 0 unit SC ACHS [facility]; Protocol Last Admin: 10/02/18 12:11 Dose: Not Given Losartan Potassium (Cozaar) 25 mg PO DAILY [facility] Last Admin: 10/02/18 09:13 Dose: 25 mg Rosuvastatin Calcium (Crestor) 5 mg PO HS [facility] Tiotropium [place] (Spiriva) 18 mcg INH RQ24 [facility] Last Admin: 10/02/18 07:57 Dose: Not Given Results - Vital Signs Recent Vital Signs: Last Vital Signs Temp 98.1 F 10/02/18 15:00 Pulse 68 10/02/18 15:00 Resp 20 10/02/18 15:00 BP 126/66 10/02/18 15:00 Pulse Ox 97 10/02/18 15:00 - Labs Result Diagrams: 10/02/18 06:50 10/02/18 06:50 Labs: Laboratory Results - last 24 hr 10/01/18 10/01/18 10/01/18 20:34 20:34 20:34 WBC 6.3 RBC 4.15 Hgb 11.9 D Hct 37.1 MCV 89.4 MCH 28.7 MCHC 32.1 L RDW 14.2 Plt Count 168 MPV 9.7 Neut % (Auto) 57.5 Lymph % (Auto) 29.9 [place] % (Auto) 10.4 H Eos % (Auto) 1.6 Baso % (Auto) 0.6 Neut # (Auto) 3.6 Lymph # (Auto) 1.9 [place] # (Auto) 0.7 Eos # (Auto) 0.1 Baso # (Auto) 0.0 PT 10.8 INR 1.0 APTT 26 Sodium 137 Potassium 4.2 Chloride 103 Carbon Dioxide 26 Anion Gap 13 BUN 28 H Creatinine 1.3 H Est GFR ( Amer) 47 Est GFR (Non-Af Amer) 39 POC Glucose (mg/dL) Random Glucose 242 H D Calcium 8.9 Total Bilirubin 0.4 AST 31 ALT 9 D Alkaline Phosphatase 71 Total Creatine Kinase CK-MB (Mass) Troponin I 0.0290 NT-Pro-B Natriuret Pep 1150 H Total Protein 7.0 Albumin 4.1 Globulin 2.8 Albumin/Globulin Ratio 1.4 Lipase 36 Urine Color Urine Clarity Urine pH Ur Specific [place] Urine Protein Urine Glucose (UA) Urine Ketones Urine Blood Urine Nitrate Urine Bilirubin Urine Urobilinogen Ur Leukocyte Esterase Urine WBC (Auto) Urine RBC (Auto) Ur Squamous Epith Cells Urine Bacteria 10/01/18 10/02/18 10/02/18 21:00 01:35 06:50 WBC 6.0 RBC 4.05 Hgb 11.9 Hct 36.1 MCV 89.1 MCH 29.4 MCHC 33.0 RDW 14.4 Plt Count 169 MPV 9.4 Neut % (Auto) 47.4 L Lymph % (Auto) 37.5 [place] % (Auto) 11.2 H Eos % (Auto) 3.2 Baso % (Auto) 0.7 Neut # (Auto) 2.9 Lymph # (Auto) 2.3 [place] # (Auto) 0.7 Eos # (Auto) 0.2 Baso # (Auto) 0.0 PT INR APTT Sodium Potassium Chloride Carbon Dioxide Anion Gap BUN Creatinine Est GFR ( Amer) Est GFR (Non-Af Amer) POC Glucose (mg/dL) Random Glucose Calcium Total Bilirubin AST ALT Alkaline Phosphatase Total Creatine Kinase 102 CK-MB (Mass) 2.49 Troponin I 0.0570 NT-Pro-B Natriuret Pep Total Protein Albumin Globulin Albumin/Globulin Ratio Lipase Urine Color Yellow Urine Clarity Clear Urine pH 6.0 Ur Specific [place] 1.008 Urine Protein 2+ H Urine Glucose (UA) 2+ H Urine Ketones Negative Urine Blood Negative Urine Nitrate Negative Urine Bilirubin Negative Urine Urobilinogen Normal Ur Leukocyte Esterase 1+ H Urine WBC (Auto) 7 H Urine RBC (Auto) 1 Ur Squamous Epith Cells 1 Urine Bacteria Occ H 10/02/18 10/02/18 10/02/18 06:50 16:56 17:02 WBC RBC Hgb Hct MCV MCH MCHC RDW Plt Count MPV Neut % (Auto) Lymph % (Auto) [place] % (Auto) Eos % (Auto) Baso % (Auto) Neut # (Auto) Lymph # (Auto) [place] # (Auto) Eos # (Auto) Baso # (Auto) PT INR APTT Sodium 138 Potassium 4.0 Chloride 103 Carbon Dioxide 29 Anion Gap 9 L BUN 30 H Creatinine 1.3 H Est GFR ( Amer) 47 Est GFR (Non-Af Amer) 39 POC Glucose (mg/dL) 352 H Random Glucose 162 H D Calcium 8.8 Total Bilirubin 0.2 AST 30 ALT 15 Alkaline Phosphatase 69 Total Creatine Kinase 87 95 CK-MB (Mass) 1.87 1.80 Troponin I 0.0480 0.0260 NT-Pro-B Natriuret Pep Total Protein 6.5 Albumin 3.9 Globulin 2.6 Albumin/Globulin Ratio 1.5 Lipase Urine Color Urine Clarity Urine pH Ur Specific [place] Urine Protein Urine Glucose (UA) Urine Ketones Urine Blood Urine Nitrate Urine Bilirubin Urine Urobilinogen Ur Leukocyte Esterase Urine WBC (Auto) Urine RBC (Auto) Ur Squamous Epith Cells Urine Bacteria
--- NOTE | 2018-10-02 18:00 | CP.PCM.PN ---
<Praveen Gonzalez - Last Filed: 10/02/18 18:46> Subjective - Date & Time of Evaluation Date of Evaluation: 10/02/18 Time of Evaluation: 09:30 - Subjective Subjective: PGY-[address] Wright service Patient is seen and examined at bedside. Patient continues to complain of chest pain located to lateral left side of chest. states the pain has improved. Patient admits to epigastric pain when eating of chronic nature. admits to sob when experiencing chest pain. Denies fever, chills, shortness of breath, n/v/d/c or urinary complaints. Objective - Vital Signs/Intake and Output Vital Signs (last 24 hours): Temp Pulse Resp BP Pulse Ox 98.1 F 68 20 126/66 97 10/02/18 15:00 10/02/18 15:00 10/02/18 15:00 10/02/18 15:00 10/02/18 15:00 - Medications Medications: Current Medications Acetaminophen (Tylenol 325mg Tab) 650 mg PO Q6 PRN PRN Reason: Pain, Mild (1-3) Amlodipine Besylate (Norvasc) 10 mg PO DAILY [facility] Last Admin: 10/02/18 09:13 Dose: 10 mg Aspirin (Ecotrin) 81 mg PO DAILY [facility] Last Admin: 10/02/18 09:13 Dose: 81 mg Dextrose (Dextrose 50% Inj) 0 ml IV STAT PRN; Protocol PRN Reason: Hypoglycemia Protocol Dextrose (Glutose 15) 0 gm PO ONCE PRN; Protocol PRN Reason: Hypoglycemia Protocol Docusate Sodium (Colace) 100 mg PO TID [facility] Last Admin: 10/02/18 17:50 Dose: 100 mg Ferrous Sulfate (Feosol) 325 mg PO DAILY [facility] Last Admin: 10/02/18 09:13 Dose: 325 mg Glucagon (Glucagen Diagnostic Kit) 0 mg IM STAT PRN; Protocol PRN Reason: Hypoglycemia Protocol Heparin Sodium (Porcine) (Heparin) 5,000 units SC Q8 [facility] Last Admin: 10/02/18 13:15 Dose: 5,000 units Dextrose (Dextrose 5% In Water 1000 Ml) 1,000 mls @ 0 mls/hr IV .Q0M PRN; Protocol PRN Reason: Hypoglycemia Protocol Insulin Human Regular (Novolin R) 0 unit SC ACHS [facility]; Protocol Last Admin: 10/02/18 17:49 Dose: 5 u Losartan Potassium (Cozaar) 25 mg PO DAILY [facility] Last Admin: 10/02/18 09:13 Dose: 25 mg Rosuvastatin Calcium (Crestor) 5 mg PO HS [facility] Tiotropium [place] (Spiriva) 18 mcg INH RQ24 [facility] Last Admin: 10/02/18 07:57 Dose: Not Given - Labs Labs: 10/02/18 06:50 10/02/18 06:50 PT 10.8 SECONDS (9.7-12.2) 10/01/18 20:34 INR 1.0 10/01/18 20:34 APTT 26 SECONDS (21-34) 10/01/18 20:34 - Constitutional Appears: Non-toxic, No Acute Distress - Head Exam Head Exam: ATRAUMATIC, NORMAL INSPECTION, NORMOCEPHALIC - Eye Exam Eye Exam: EOMI, Normal appearance - ENT Exam ENT Exam: Mucous Membranes Moist, Normal Exam - Neck Exam Neck Exam: Full ROM - Respiratory Exam Respiratory Exam: Chest Wall Tenderness (to left side of chest area lateral side between 3rd and 4th ribs), Clear to Ausculation Bilateral. absent: Rales, Rhonchi, Wheezes - Cardiovascular Exam Cardiovascular Exam: Irregular Rhythm, Murmur. absent: Bradycardia, Tachycardia - GI/Abdominal Exam GI & Abdominal Exam: Soft, Normal Bowel Sounds. absent: Distended, Tenderness - Extremities Exam Extremities Exam: Full ROM, Normal Inspection. absent: Tenderness - Neurological Exam Neurological Exam: Alert, Awake, Oriented x3 - Psychiatric Exam Psychiatric exam: Normal Affect, Normal Mood - Skin Skin Exam: Dry, Intact, Normal Color, Warm Assessment and Plan - Assessment and Plan (Free Text) Assessment: 86 Y F w/ PMHx: DM, HTN, HLD, CAD s/p coronary stent, COPD, asthma, anemia, anxiety and arthritis, presents to ED for chest pain and general body aches, cardiac work up negative, cardio cosulted, chest pain improving, localized to left lateral side of chest. Plan: Chest pain most likely due to costochondritis R/O ACS - Vitals stable - YADIRA negative x 3 - YADIRA x 1 this pm - negative - EKG no ST elevations, LBBB - F/u Cardio - Dr Ayala - recs are appreciated - TSH on 02/10/18 WNL, Lipid Panel on 02/10/18 WNL - toradol 15mg IVP x 1 time for MSK pain - tylenol 650 mg PO Q6 PRN for pain CAD s/p coronary stent - Cardiac cath in 2016 with 2 stents placed - Home meds ASA 81mg PO daily Crestor 5mg PO HS - Avoid beta-blockers in light of severe COPD CHF - Home meds ASA 81mg PO daily Crestor 5mg PO HS - Echo 01/08/18 - EF 65-70%, diastolic dysfunction, LV systolic functio normal, no valvular regurgitation, no pulm htn HTN Chronic - Home meds - cozaar 25 mg PO daily - norvasc 10 mg PO daily DM Chronic - accuchecks ACHS - Low dose ISS ACHS - hypoglycemic protocol - HgA1c 7.1 (01/08/18) HLD Chronic - Lipid panel on 02/10/18 WNL - Home meds crestor 5mg PO daily COPD/Asthma Chronic - Home meds Spiriva 18 mcg INH daily Anxiety chronic - Xanax 1mg daily held for now - risk for fall/delerium in elderly Arthritis chronic - tylenol 650 mg PO PRN pain Anemia chronic - Home meds ferrous sulfate 325 mg daily Constipation chronic - Home meds colace 100mg TID Prophylaxsis - DVT: SCDs, Heparin 5000 U SC Q8 - GI not indicated - Heart healthy diet Plan discussed with Dr Wright DISPO: will follow cardio recs, patient can be d/c tomorrow in light of cardiac work up negative. Praveen Gonzalez, PGY-1 <Torie Wright V - Last Filed: 10/02/18 22:05> Objective - Vital Signs/Intake and Output Vital Signs (last 24 hours): Temp Pulse Resp BP Pulse Ox 98.1 F 66 20 126/66 97 10/02/18 15:00 10/02/18 16:00 10/02/18 15:00 10/02/18 15:00 10/02/18 15:00 - Medications Medications: Current Medications Acetaminophen (Tylenol 325mg Tab) 650 mg PO Q6 PRN PRN Reason: Pain, Mild (1-3) Amlodipine Besylate (Norvasc) 10 mg PO DAILY [facility] Last Admin: 10/02/18 09:13 Dose: 10 mg Aspirin (Ecotrin) 81 mg PO DAILY [facility] Last Admin: 10/02/18 09:13 Dose: 81 mg Dextrose (Dextrose 50% Inj) 0 ml IV STAT PRN; Protocol PRN Reason: Hypoglycemia Protocol Dextrose (Glutose 15) 0 gm PO ONCE PRN; Protocol PRN Reason: Hypoglycemia Protocol Docusate Sodium (Colace) 100 mg PO TID [facility] Last Admin: 10/02/18 17:50 Dose: 100 mg Ferrous Sulfate (Feosol) 325 mg PO DAILY [facility] Last Admin: 10/02/18 09:13 Dose: 325 mg Glucagon (Glucagen Diagnostic Kit) 0 mg IM STAT PRN; Protocol PRN Reason: Hypoglycemia Protocol Heparin Sodium (Porcine) (Heparin) 5,000 units SC Q8 [facility] Last Admin: 10/02/18 13:15 Dose: 5,000 units Dextrose (Dextrose 5% In Water 1000 Ml) 1,000 mls @ 0 mls/hr IV .Q0M PRN; Protocol PRN Reason: Hypoglycemia Protocol Insulin Human Regular (Novolin R) 0 unit SC ACHS [facility]; Protocol Last Admin: 10/02/18 17:49 Dose: 5 u Losartan Potassium (Cozaar) 25 mg PO DAILY [facility] Last Admin: 10/02/18 09:13 Dose: 25 mg Rosuvastatin Calcium (Crestor) 5 mg PO HS [facility] Tiotropium [place] (Spiriva) 18 mcg INH RQ24 [facility] Last Admin: 10/02/18 07:57 Dose: Not Given - Labs Labs: 10/02/18 06:50 10/02/18 06:50 PT 10.8 SECONDS (9.7-12.2) 10/01/18 20:34 INR 1.0 10/01/18 20:34 APTT 26 SECONDS (21-34) 10/01/18 20:34 Attending/Attestation - Attestation I have personally seen and examined this patient.: Yes I have fully participated in the care of the patient.: Yes I have reviewed all pertinent clinical information, including history, physical exam and plan: Yes Notes (Text): This is an 87-year-old female with extensive past medical history noted by resident. Patient is well-known to the hospitalist service. Patient denies chest pain at home. Patient cardiac enzymes x4 is negative. Patient is known to Dr. Hernandez he is awaiting Dr. Ayala is covered with her today. Patient noted on physical exam this morning for a muscle spasm which was palpable over the left fourth intercostal space with left side. Which patient [place] pain patient provided Toradol 50 mg once to reduce inflammation. Patient was advised that she could potentially go home today however she is not accepting that information will follow-up with cardiology to see if any further recommendations as necessary.
[2018-10-03 07:20] LABS: BASO % 0.5 % (0.0-2.0); EOS # 0.2 K/uL (0.0-0.7); EOS % 2.9 % (0.0-4.0); HEMOGLOBIN 11.6 g/dL (11.0-16.0); LYMPH # 2.4 K/uL (1.0-4.3); LYMPH % 27.9 % (20.0-40.0); MEAN CELL VOLUME 89.6 fL (81.0-99.0); MEAN CORPUSCULAR HGB CONC 33.4 g/dL (33.0-37.0); MEAN PLATELET VOLUME 9.5 fL (7.2-11.7); MONO # 0.8 K/uL (0.0-0.8); MONO % 9.2 % (0.0-10.0); NEUT % 59.5 % (50.0-75.0); RBC 3.86 Mil/uL (3.80-5.20); RED CELL DISTRIBUTION WIDTH 14.8 % (11.5-14.5); WHITE BLOOD COUNT 8.4 K/uL (4.8-10.8)
[2018-10-03 07:28] LABS: ALB/GLOB RATIO 1.4 (1.0-2.1); ALBUMIN 3.7 g/dL (3.5-5.0); CALCIUM 8.4 mg/dl (8.6-10.4)
[2018-10-03] MEDS: (Novolin R) Insulin Human Regular 100 units/ml vial SC SCH ×4 (08:23→21:45)
[2018-10-03] MEDS: Tiotropium 18 mcg Cap For Inhalation INH SCH (10:47)
[2018-10-03] MEDS ORDERED: Aluminum Hydroxide/Magnesium Hydroxide Susp (30 mL) PO ONE (12:15)
--- NOTE | 2018-10-03 12:37 | CP.PCM.DIS ---
Provider - Provider Date of Admission: 10/01/18 22:00 Attending physician: Jose Vidal MD Consults: 10/02/18 01:53 Cardiology Consult Routine Comment: Consulting Provider: Andrew Hernandez Consulting Physician: Andrew Hernandez Reason for Consult: Chest Pain, sees Dr. Hernandez outpatient 10/02/18 15:22 Cardiology Consult Routine Comment: Consulting Provider: Celine Ayala Consulting Physician: Celine Ayala Reason for Consult: Chest pain Hospital Course - Lab Results Lab Results: Most Recent Lab Values WBC 8.4 K/uL (4.8-10.8) 10/03/18 06:47 RBC 3.86 Mil/uL (3.80-5.20) 10/03/18 06:47 Hgb 11.6 g/dL (11.0-16.0) 10/03/18 06:47 Hct 34.5 % (34.0-47.0) 10/03/18 06:47 MCV 89.6 fL (81.0-99.0) 10/03/18 06:47 MCH 30.0 pg (27.0-31.0) 10/03/18 06:47 MCHC 33.4 g/dL (33.0-37.0) 10/03/18 06:47 RDW 14.8 % (11.5-14.5) H 10/03/18 06:47 Plt Count 160 K/uL (130-400) 10/03/18 06:47 MPV 9.5 fL (7.2-11.7) 10/03/18 06:47 Neut % (Auto) 59.5 % (50.0-75.0) 10/03/18 06:47 Lymph % (Auto) 27.9 % (20.0-40.0) 10/03/18 06:47 [place] % (Auto) 9.2 % (0.0-10.0) 10/03/18 06:47 Eos % (Auto) 2.9 % (0.0-4.0) 10/03/18 06:47 Baso % (Auto) 0.5 % (0.0-2.0) 10/03/18 06:47 Neut # (Auto) 5.0 K/uL (1.8-7.0) 10/03/18 06:47 Lymph # (Auto) 2.4 K/uL (1.0-4.3) 10/03/18 06:47 [place] # (Auto) 0.8 K/uL (0.0-0.8) 10/03/18 06:47 Eos # (Auto) 0.2 K/uL (0.0-0.7) 10/03/18 06:47 Baso # (Auto) 0.0 K/uL (0.0-0.2) 10/03/18 06:47 PT 10.8 SECONDS (9.7-12.2) 10/01/18 20:34 INR 1.0 10/01/18 20:34 APTT 26 SECONDS (21-34) 10/01/18 20:34 Sodium 135 mmol/L (132-148) 10/03/18 06:47 Potassium 5.1 mmol/L (3.6-5.2) 10/03/18 06:47 Chloride 102 mmol/L (98-107) 10/03/18 06:47 Carbon Dioxide 25 mmol/L (22-30) 10/03/18 06:47 Anion Gap 13 (10-20) 10/03/18 06:47 BUN 49 mg/dL (7-17) H 10/03/18 06:47 Creatinine 1.4 mg/dL (0.7-1.2) H 10/03/18 06:47 Est GFR ( Amer) 43 10/03/18 06:47 Est GFR (Non-Af Amer) 36 10/03/18 06:47 POC Glucose (mg/dL) 263 mg/dL (65-110) H 10/03/18 12:01 Random Glucose 147 mg/dL (65-105) H 10/03/18 06:47 Calcium 8.4 mg/dl (8.6-10.4) L 10/03/18 06:47 Total Bilirubin 0.4 mg/dL (0.2-1.3) 10/03/18 06:47 AST 33 U/L (14-36) 10/03/18 06:47 ALT 16 U/L (9-52) 10/03/18 06:47 Alkaline Phosphatase 64 U/L (38-126) 10/03/18 06:47 Total Creatine Kinase 95 U/L (30-135) 10/02/18 16:56 CK-MB (Mass) 1.80 ng/mL (0.0-3.38) 10/02/18 16:56 Troponin I 0.0260 ng/mL (0.00-0.120) 10/02/18 16:56 NT-Pro-B Natriuret Pep 1150 pg/mL (0-900) H 10/01/18 20:34 Total Protein 6.2 g/dL (6.3-8.3) L 10/03/18 06:47 Albumin 3.7 g/dL (3.5-5.0) 10/03/18 06:47 Globulin 2.5 gm/dL (2.2-3.9) 10/03/18 06:47 Albumin/Globulin Ratio 1.4 (1.0-2.1) 10/03/18 06:47 Lipase 36 U/L (23-300) 10/01/18 20:34 Urine Color Yellow (YELLOW) 10/01/18 21:00 Urine Clarity Clear (Clear) 10/01/18 21:00 Urine pH 6.0 (5.0-8.0) 10/01/18 21:00 Ur Specific [place] 1.008 (1.003-1.030) 10/01/18 21:00 Urine Protein 2+ mg/dL (NEGATIVE) H 10/01/18 21:00 Urine Glucose (UA) 2+ mg/dL (Normal) H 10/01/18 21:00 Urine Ketones Negative mg/dL (NEGATIVE) 10/01/18 21:00 Urine Blood Negative (NEGATIVE) 10/01/18 21:00 Urine Nitrate Negative (NEGATIVE) 10/01/18 21:00 Urine Bilirubin Negative (NEGATIVE) 10/01/18 21:00 Urine Urobilinogen Normal mg/dL (0.2-1.0) 10/01/18 21:00 Ur Leukocyte Esterase 1+ [place]/uL (Negative) H 10/01/18 21:00 Urine WBC (Auto) 7 /hpf (0-5) H 10/01/18 21:00 Urine RBC (Auto) 1 /hpf (0-3) 10/01/18 21:00 Ur Squamous Epith Cells 1 /hpf (0-5) 10/01/18 21:00 Urine Bacteria Occ (<OCC) H 10/01/18 21:00 Discharge Exam - Head Exam Head Exam: ATRAUMATIC, NORMAL INSPECTION, NORMOCEPHALIC Discharge Plan - Follow Up Plan Condition: FAIR Disposition: HOME/ ROUTINE
--- NOTE | 2018-10-03 14:13 | CP.PCM.CON ---
History of Present Illness - History of Present Illness History of Present Illness: Patient is an 86 Y F w/ PMHx: DM, HTN, HLD, CHF, CAD s/p coronary stent, COPD, asthma, anemia, anxiety and arthritis, presents to ED for chest pain. Patient states that her chest pain is associated with her asthma/COPD symptoms. Patient was hospitalized at [facility] one week ago for similar symptoms, and was discharged following normal cardiac workup. Pain does not radiate anywhere specifically, though she says when chest pain comes she has aches in her whole body. She also states having mild shortness of breath. Denies fevers, chills, cough, n/v/d/c.At the time of examination only complain she has is left lower quadrant discomfort. Past Patient History - Infectious Disease Hx of Infectious Diseases: None - Tetanus Immunizations Tetanus Immunization: Unknown - Past Medical History & Family History Past Medical History?: Yes - Past Social History Smoking Status: Former Smoker - CARDIAC Hx Hypercholesterolemia: Yes Hx Hypertension: Yes - PULMONARY Hx Chronic Obstructive Pulmonary Disease (COPD): Yes - NEUROLOGICAL Hx Seizures: No - HEENT Hx HEENT Problems: Yes Hx Cataracts: Yes (right eye) Hx Glaucoma: Yes (left eye) - RENAL Hx Chronic Kidney Disease: Yes - HEMATOLOGICAL/ONCOLOGICAL Hx Anemia: Yes - INTEGUMENTARY Hx Dermatological Problems: No - MUSCULOSKELETAL/RHEUMATOLOGICAL Hx Arthritis: Yes - GASTROINTESTINAL Hx Gastritis: Yes - GENITOURINARY/GYNECOLOGICAL Hx Genitourinary Disorders: Yes Other/Comment: fibroid surgery - PSYCHIATRIC Hx Anxiety: Yes Hx Substance Use: No - SURGICAL HISTORY Hx Coronary Stent: Yes (cad cath 02/2016 with stent X2) - ANESTHESIA Hx Anesthesia: Yes Hx Anesthesia Reactions: No Hx Malignant Hyperthermia: No Meds Allergies/Adverse Reactions: Allergies Allergy/AdvReac Type Severity Reaction Status Date / Time No Known Allergies Allergy Verified 09/16/18 15:18 - Medications Medications: Current Medications Acetaminophen (Tylenol 325mg Tab) 650 mg PO Q6 PRN PRN Reason: Pain, Mild (1-3) Amlodipine Besylate (Norvasc) 10 mg PO DAILY [facility] Last Admin: 10/03/18 10:19 Dose: 10 mg Aspirin (Ecotrin) 81 mg PO DAILY [facility] Last Admin: 10/03/18 10:18 Dose: 81 mg Bisacodyl (Dulcolax) 5 mg PO ONCE ONE Stop: 10/03/18 14:31 Dextrose (Dextrose 50% Inj) 0 ml IV STAT PRN; Protocol PRN Reason: Hypoglycemia Protocol Dextrose (Glutose 15) 0 gm PO ONCE PRN; Protocol PRN Reason: Hypoglycemia Protocol Docusate Sodium (Colace) 100 mg PO TID [facility] Last Admin: 10/03/18 13:20 Dose: 100 mg Famotidine (Pepcid) 20 mg PO DAILY [facility] Last Admin: 10/03/18 10:18 Dose: 20 mg Ferrous Sulfate (Feosol) 325 mg PO DAILY [facility] Last Admin: 10/03/18 10:18 Dose: 325 mg Glucagon (Glucagen Diagnostic Kit) 0 mg IM STAT PRN; Protocol PRN Reason: Hypoglycemia Protocol Heparin Sodium (Porcine) (Heparin) 5,000 units SC Q8 [facility] Last Admin: 10/03/18 13:19 Dose: 5,000 units Dextrose (Dextrose 5% In Water 1000 Ml) 1,000 mls @ 0 mls/hr IV .Q0M PRN; Protocol PRN Reason: Hypoglycemia Protocol Ibuprofen (Motrin Tab) 600 mg PO Q8H [facility] Last Admin: 10/03/18 12:30 Dose: 600 mg Insulin Human Regular (Novolin R) 0 unit SC ACHS [facility]; Protocol Last Admin: 10/03/18 12:07 Dose: 3 unit Losartan Potassium (Cozaar) 25 mg PO DAILY [facility] Last Admin: 10/03/18 10:19 Dose: 25 mg Rosuvastatin Calcium (Crestor) 5 mg PO HS [facility] Last Admin: 10/02/18 22:17 Dose: 5 mg Simethicone (Mylicon Liq) 40 mg PO QID [facility] Tiotropium [place] (Spiriva) 18 mcg INH RQ24 [facility] Last Admin: 10/03/18 10:47 Dose: Not Given Physical Exam - Head Exam Head Exam: NORMOCEPHALIC - Neck Exam Neck exam: Positive for: Normal Inspection - Respiratory Exam Respiratory Exam: NORMAL BREATHING PATTERN - Cardiovascular Exam Cardiovascular Exam: REGULAR RHYTHM - GI/Abdominal Exam GI & Abdominal Exam: Tenderness Additional comments: Left lower quadrant. - Extremities Exam Extremities exam: Positive for: normal inspection - Neurological Exam Neurological exam: Alert, Oriented x3 Results - Vital Signs Recent Vital Signs: Last Vital Signs Temp 97.5 F L 10/03/18 08:27 Pulse 61 10/03/18 08:27 Resp 18 02/28/19 08:27 BP 120/68 10/03/18 08:27 Pulse Ox 96 10/03/18 12:25 - Labs Result Diagrams: 10/03/18 06:47 10/03/18 06:47 Labs: Laboratory Results - last 24 hr 10/02/18 10/02/18 10/02/18 06:41 11:57 16:56 WBC RBC Hgb Hct MCV MCH MCHC RDW Plt Count MPV Neut % (Auto) Lymph % (Auto) [place] % (Auto) Eos % (Auto) Baso % (Auto) Neut # (Auto) Lymph # (Auto) [place] # (Auto) Eos # (Auto) Baso # (Auto) Sodium Potassium Chloride Carbon Dioxide Anion Gap BUN Creatinine Est GFR ( Amer) Est GFR (Non-Af Amer) POC Glucose (mg/dL) 174 H 143 H Random Glucose Calcium Total Bilirubin AST ALT Alkaline Phosphatase Total Creatine Kinase 95 CK-MB (Mass) 1.80 Troponin I 0.0260 Total Protein Albumin Globulin Albumin/Globulin Ratio 10/02/18 10/02/18 10/03/18 17:02 22:01 06:17 WBC RBC Hgb Hct MCV MCH MCHC RDW Plt Count MPV Neut % (Auto) Lymph % (Auto) [place] % (Auto) Eos % (Auto) Baso % (Auto) Neut # (Auto) Lymph # (Auto) [place] # (Auto) Eos # (Auto) Baso # (Auto) Sodium Potassium Chloride Carbon Dioxide Anion Gap BUN Creatinine Est GFR ( Amer) Est GFR (Non-Af Amer) POC Glucose (mg/dL) 352 H 132 H 159 H Random Glucose Calcium Total Bilirubin AST ALT Alkaline Phosphatase Total Creatine Kinase CK-MB (Mass) Troponin I Total Protein Albumin Globulin Albumin/Globulin Ratio 10/03/18 10/03/18 10/03/18 06:47 06:47 12:01 WBC 8.4 RBC 3.86 Hgb 11.6 Hct 34.5 MCV 89.6 MCH 30.0 MCHC 33.4 RDW 14.8 H Plt Count 160 MPV 9.5 Neut % (Auto) 59.5 Lymph % (Auto) 27.9 [place] % (Auto) 9.2 Eos % (Auto) 2.9 Baso % (Auto) 0.5 Neut # (Auto) 5.0 Lymph # (Auto) 2.4 [place] # (Auto) 0.8 Eos # (Auto) 0.2 Baso # (Auto) 0.0 Sodium 135 Potassium 5.1 Chloride 102 Carbon Dioxide 25 Anion Gap 13 BUN 49 H Creatinine 1.4 H Est GFR ( Amer) 43 Est GFR (Non-Af Amer) 36 POC Glucose (mg/dL) 263 H Random Glucose 147 H Calcium 8.4 L Total Bilirubin 0.4 AST 33 ALT 16 Alkaline Phosphatase 64 Total Creatine Kinase CK-MB (Mass) Troponin I Total Protein 6.2 L Albumin 3.7 Globulin 2.5 Albumin/Globulin Ratio 1.4 Assessment & Plan (1) CHF (congestive heart failure) Assessment and Plan: Stable. Lying flat on the bed without any SOB. Status: Acute (2) Chest pain Assessment and Plan: Troponin negative so far. Follow troponin. Consider further cardiac work when other issues are resolved. Status: Acute (3) Abdominal pain Assessment and Plan: Consider work to R/O any abdominal pathology. Discussed with resident. Status: Acute
[2018-10-03] MEDS ORDERED: Bisacodyl 5mg EC Tab PO ONE (14:30)
[2018-10-03] MEDS: Simethicone 40 mg/0.6 ml Liquid (30 ml) PO SCH ×2 (14:33→18:50)
[2018-10-03] MEDS ORDERED: Iohexol 240 (50 ml) PO ONE (15:30)
[2018-10-03 15:50] VITALS: RESP 20
--- NOTE | 2018-10-03 17:55 | CP.PCM.PN ---
Subjective - Date & Time of Evaluation Date of Evaluation: 10/03/18 Time of Evaluation: 08:00 - Subjective Subjective: PGY-[address] Wright service Patient is seen and examined at bedside. Patient continues to complaint of chest pain localized to the left size, associated with breathing, denies palpitations or shortness of breath. Patient admits to abdominal pain, mostly on left side and epigastric area. Patient is tolerating diet, had a small bowel movement this morning and admits to constipation. Denies fever, chills, nausea, vomiting or urinary symptoms. Objective - Vital Signs/Intake and Output Vital Signs (last 24 hours): Temp Pulse Resp BP Pulse Ox 97.1 F L 61 20 133/56 L 100 10/03/18 15:00 10/03/18 15:00 10/03/18 15:00 10/03/18 15:00 10/03/18 15:00 - Medications Medications: Current Medications Acetaminophen (Tylenol 325mg Tab) 650 mg PO Q6 PRN PRN Reason: Pain, Mild (1-3) Amlodipine Besylate (Norvasc) 10 mg PO DAILY [facility] Last Admin: 10/03/18 10:19 Dose: 10 mg Aspirin (Ecotrin) 81 mg PO DAILY [facility] Last Admin: 10/03/18 10:18 Dose: 81 mg Dextrose (Dextrose 50% Inj) 0 ml IV STAT PRN; Protocol PRN Reason: Hypoglycemia Protocol Dextrose (Glutose 15) 0 gm PO ONCE PRN; Protocol PRN Reason: Hypoglycemia Protocol Docusate Sodium (Colace) 100 mg PO TID [facility] Last Admin: 10/03/18 13:20 Dose: 100 mg Famotidine (Pepcid) 20 mg PO DAILY [facility] Last Admin: 10/03/18 10:18 Dose: 20 mg Ferrous Sulfate (Feosol) 325 mg PO DAILY [facility] Last Admin: 10/03/18 10:18 Dose: 325 mg Glucagon (Glucagen Diagnostic Kit) 0 mg IM STAT PRN; Protocol PRN Reason: Hypoglycemia Protocol Heparin Sodium (Porcine) (Heparin) 5,000 units SC Q8 [facility] Last Admin: 10/03/18 13:19 Dose: 5,000 units Dextrose (Dextrose 5% In Water 1000 Ml) 1,000 mls @ 0 mls/hr IV .Q0M PRN; Protocol PRN Reason: Hypoglycemia Protocol Ibuprofen (Motrin Tab) 600 mg PO Q8H [facility] Last Admin: 10/03/18 12:30 Dose: 600 mg Insulin Human Regular (Novolin R) 0 unit SC ACHS [facility]; Protocol Last Admin: 10/03/18 16:26 Dose: Not Given Losartan Potassium (Cozaar) 25 mg PO DAILY [facility] Last Admin: 10/03/18 10:19 Dose: 25 mg Rosuvastatin Calcium (Crestor) 5 mg PO HS [facility] Last Admin: 10/02/18 22:17 Dose: 5 mg Simethicone (Mylicon Liq) 40 mg PO QID [facility] Last Admin: 10/03/18 14:33 Dose: 40 mg Tiotropium Rembrandt (Spiriva) 18 mcg INH RQ24 [facility] Last Admin: 10/03/18 10:47 Dose: Not Given - Labs Labs: 10/03/18 06:47 10/03/18 06:47 PT 10.8 SECONDS (9.7-12.2) 10/01/18 20:34 INR 1.0 10/01/18 20:34 APTT 26 SECONDS (21-34) 10/01/18 20:34 - Constitutional Appears: Non-toxic, No Acute Distress - Head Exam Head Exam: ATRAUMATIC, NORMAL INSPECTION, NORMOCEPHALIC - Eye Exam Eye Exam: EOMI, Normal appearance, PERRL Pupil Exam: NORMAL ACCOMODATION - ENT Exam ENT Exam: Mucous Membranes Moist, Normal Exam - Neck Exam Neck Exam: Full ROM, Normal Inspection - Respiratory Exam Respiratory Exam: Chest Wall Tenderness (between 3rd and 4th ribs), Clear to Ausculation Bilateral, NORMAL BREATHING PATTERN. absent: Rales, Rhonchi, Whee zes - Cardiovascular Exam Cardiovascular Exam: REGULAR RHYTHM, +S1, +S2 - GI/Abdominal Exam GI & Abdominal Exam: Distended, Soft, Normal Bowel Sounds. absent: Guarding, Tenderness - Extremities Exam Extremities Exam: Full ROM, Normal Capillary Refill, Normal Inspection. absent: Pedal Edema, Tenderness - Back Exam Back Exam: NORMAL INSPECTION - Neurological Exam Neurological Exam: Alert, Awake, Oriented x3 - Psychiatric Exam Psychiatric exam: Normal Affect, Normal Mood - Skin Skin Exam: Dry, Intact, Normal Color, Warm Assessment and Plan - Assessment and Plan (Free Text) Assessment: 86 Y F w/ PMHx: DM, HTN, HLD, CAD s/p coronary stent, COPD, asthma, anemia, anxiety and arthritis, presents to ED for chest pain and general body aches, cardiac work up negative, cardio cosulted, chest pain improving, localized to left lateral side of chest. Plan: Chest pain most likely due to costochondritis R/O ACS - Vitals stable - YADIRA negative x 4 - EKG no ST elevations, LBBB - F/u Cardio - Dr Ayala (covering for dr Hernandez)- CHF stable, trops negative, consider further cardiac work when other issues are resolved, consider work to r /o abdominal pathology - ibuprofen 600mg Q8H - tylenol 650 mg PO Q6 PRN for pain CAD s/p coronary stent - Cardiac cath in 2016 with 2 stents placed - Home meds ASA 81mg PO daily Crestor 5mg PO HS - Avoid beta-blockers in light of severe COPD CHF - Home meds ASA 81mg PO daily Crestor 5mg PO HS - Echo 01/08/18 - EF 65-70%, diastolic dysfunction, LV systolic functio normal, no valvular regurgitation, no pulm htn -cardio consult - Dr Ayala - stable, lying flat in bed with no SOB. Abdominal pain - CT abd and pelvis w/ PO contrast - moderate amount of stools in colon, pending official results - simethicone, maalox, pepcid given today - most likely related to constipation - dulcolax given - monitor for BM HTN Chronic - Home meds - cozaar 25 mg PO daily - norvasc 10 mg PO daily DM Chronic - accuchecks ACHS - Low dose ISS ACHS - hypoglycemic protocol - HgA1c 7.1 (01/08/18) HLD Chronic - Lipid panel on 02/10/18 WNL - Home meds crestor 5mg PO daily COPD/Asthma Chronic - Home meds Spiriva 18 mcg INH daily Anxiety chronic - Xanax 1mg daily held for now - risk for fall/delerium in elderly Arthritis chronic - tylenol 650 mg PO PRN pain Anemia chronic - Home meds ferrous sulfate 325 mg daily Constipation chronic - Home meds colace 100mg TID - Added dulcolax x 1 dose - follow up BM Prophylaxsis - DVT: SCDs, Heparin 5000 U SC Q8 - pepcid 20mg PO daily - Heart healthy diet DISPO: Patient to be discharged tomorrow after bowel movement, Daughter to be contacted to 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 Plan discussed with Dr Adriana Gonzalez, PGY-1
[2018-10-03] MEDS: Simethicone 80 mg Chewtab PO SCH (21:24)
--- NOTE | 2018-10-04 07:11 | CP.PCM.DIS ---
Provider - Provider Date of Admission: 10/01/18 22:00 Attending physician: Torie Wright DO Consults: 10/02/18 01:53 Cardiology Consult Routine Comment: Consulting Provider: Andrew Hernandez Consulting Physician: Andrew Hernandez Reason for Consult: Chest Pain, sees Dr. Hernandez outpatient 10/02/18 15:22 Cardiology Consult Routine Comment: Consulting Provider: Celine Ayala Consulting Physician: Celine Ayala Reason for Consult: Chest pain Time Spent in preparation of Discharge (in minutes): 180 Diagnosis - Discharge Diagnosis (1) Chest pain Status: Chronic (2) Duodenitis Status: Acute (3) Constipation Status: Acute Priority: Medium (4) CHF (congestive heart failure) Status: Acute (5) Constipation Status: Acute (6) CAD (coronary artery disease) Status: Chronic Priority: High Hospital Course - Lab Results Lab Results: Most Recent Lab Values WBC 8.4 K/uL (4.8-10.8) 10/03/18 06:47 RBC 3.86 Mil/uL (3.80-5.20) 10/03/18 06:47 Hgb 11.6 g/dL (11.0-16.0) 10/03/18 06:47 Hct 34.5 % (34.0-47.0) 10/03/18 06:47 MCV 89.6 fL (81.0-99.0) 10/03/18 06:47 MCH 30.0 pg (27.0-31.0) 10/03/18 06:47 MCHC 33.4 g/dL (33.0-37.0) 10/03/18 06:47 RDW 14.8 % (11.5-14.5) H 10/03/18 06:47 Plt Count 160 K/uL (130-400) 10/03/18 06:47 MPV 9.5 fL (7.2-11.7) 10/03/18 06:47 Neut % (Auto) 59.5 % (50.0-75.0) 10/03/18 06:47 Lymph % (Auto) 27.9 % (20.0-40.0) 10/03/18 06:47 [place] % (Auto) 9.2 % (0.0-10.0) 10/03/18 06:47 Eos % (Auto) 2.9 % (0.0-4.0) 10/03/18 06:47 Baso % (Auto) 0.5 % (0.0-2.0) 10/03/18 06:47 Neut # (Auto) 5.0 K/uL (1.8-7.0) 10/03/18 06:47 Lymph # (Auto) 2.4 K/uL (1.0-4.3) 10/03/18 06:47 [place] # (Auto) 0.8 K/uL (0.0-0.8) 10/03/18 06:47 Eos # (Auto) 0.2 K/uL (0.0-0.7) 10/03/18 06:47 Baso # (Auto) 0.0 K/uL (0.0-0.2) 10/03/18 06:47 PT 10.8 SECONDS (9.7-12.2) 10/01/18 20:34 INR 1.0 10/01/18 20:34 APTT 26 SECONDS (21-34) 10/01/18 20:34 Sodium 135 mmol/L (132-148) 10/03/18 06:47 Potassium 5.1 mmol/L (3.6-5.2) 10/03/18 06:47 Chloride 102 mmol/L (98-107) 10/03/18 06:47 Carbon Dioxide 25 mmol/L (22-30) 10/03/18 06:47 Anion Gap 13 (10-20) 10/03/18 06:47 BUN 49 mg/dL (7-17) H 10/03/18 06:47 Creatinine 1.4 mg/dL (0.7-1.2) H 10/03/18 06:47 Est GFR ( Amer) 43 10/03/18 06:47 Est GFR (Non-Af Amer) 36 10/03/18 06:47 POC Glucose (mg/dL) 300 mg/dL (65-110) H 10/03/18 21:44 Random Glucose 147 mg/dL (65-105) H 10/03/18 06:47 Calcium 8.4 mg/dl (8.6-10.4) L 10/03/18 06:47 Total Bilirubin 0.4 mg/dL (0.2-1.3) 10/03/18 06:47 AST 33 U/L (14-36) 10/03/18 06:47 ALT 16 U/L (9-52) 10/03/18 06:47 Alkaline Phosphatase 64 U/L (38-126) 10/03/18 06:47 Total Creatine Kinase 95 U/L (30-135) 10/02/18 16:56 CK-MB (Mass) 1.80 ng/mL (0.0-3.38) 10/02/18 16:56 Troponin I 0.0260 ng/mL (0.00-0.120) 10/02/18 16:56 NT-Pro-B Natriuret Pep 1150 pg/mL (0-900) H 10/01/18 20:34 Total Protein 6.2 g/dL (6.3-8.3) L 10/03/18 06:47 Albumin 3.7 g/dL (3.5-5.0) 10/03/18 06:47 Globulin 2.5 gm/dL (2.2-3.9) 10/03/18 06:47 Albumin/Globulin Ratio 1.4 (1.0-2.1) 10/03/18 06:47 Lipase 36 U/L (23-300) 10/01/18 20:34 Urine Color Yellow (YELLOW) 10/01/18 21:00 Urine Clarity Clear (Clear) 10/01/18 21:00 Urine pH 6.0 (5.0-8.0) 10/01/18 21:00 Ur Specific [place] 1.008 (1.003-1.030) 10/01/18 21:00 Urine Protein 2+ mg/dL (NEGATIVE) H 10/01/18 21:00 Urine Glucose (UA) 2+ mg/dL (Normal) H 10/01/18 21:00 Urine Ketones Negative mg/dL (NEGATIVE) 10/01/18 21:00 Urine Blood Negative (NEGATIVE) 10/01/18 21:00 Urine Nitrate Negative (NEGATIVE) 10/01/18 21:00 Urine Bilirubin Negative (NEGATIVE) 10/01/18 21:00 Urine Urobilinogen Normal mg/dL (0.2-1.0) 10/01/18 21:00 Ur Leukocyte Esterase 1+ Branden/uL (Negative) H 10/01/18 21:00 Urine WBC (Auto) 7 /hpf (0-5) H 10/01/18 21:00 Urine RBC (Auto) 1 /hpf (0-3) 10/01/18 21:00 Ur Squamous Epith Cells 1 /hpf (0-5) 10/01/18 21:00 Urine Bacteria Occ (<OCC) H 10/01/18 21:00 - Hospital Course Hospital Course: On admission: Patient is an 86 Y F w/ PMHx: DM, HTN, HLD, CHF, CAD s/p coronary stent, COPD, asthma, anemia, anxiety and arthritis, presents to ED for chest pain. Patient states that her chest pain is associated with her asthma/COPD symptoms. Patient was hospitalized at [facility] one week ago for similar symptoms, and was discharged following normal cardiac workup. Pain does not radiate anywhere specifically, though she says when chest pain comes she has aches in her whole body. She also states having mild shortness of breath. Denies fevers, chills, cough, n/v/d/c. On hospitalization: Patient admitted for chest pain to rule out ACS/cardiac etiology. cardiac enzymes x 4 negative, EKG unchanged from previous studies. Cardiology Dr Jamie nesbitt from Dr Hernandez who is patient's mental health practitioner, consulted . CHF stable as per cardiology. Patient complaining of reproducible pain on left fourth intercostal space. Patient received anti-inflammatory medication, patient reported improvement of pain. Patient reported left lower quadrant and epigastric abdominal pain. CT abdomen and pelvis with oral contrast showed duodenitis. Patient also reports constipation, received 2x dose laxative and stool softener. Patient reports improvement of abdominal pain. On Discharge: Patient is medically stable for discharge. Patient to complete Augumentin 875- 125 1 tab PO bid for 7 days starting tomorrow, increase fiber in the diet and to not take NSAIDS like motrin and naproxen. If patient's abdominal worsens, advise to come back immediately for evaluation. This is a brief summary of patient's hospitalization course. For more information, please refer to patient's EMR - Date & Time of H&P Date of H&P: 10/01/18 Time of H&P: 22:45 Discharge Exam - Head Exam Head Exam: ATRAUMATIC, NORMAL INSPECTION, NORMOCEPHALIC - Eye Exam Eye Exam: EOMI, Normal appearance - ENT Exam ENT Exam: Mucous Membranes Moist, Normal Exam - Neck Exam Neck exam: Normal Inspection - Respiratory Exam Respiratory Exam: Clear to PA & Lateral. absent: Chest Wall Tenderness, Rales, Rhonchi, Wheezes - Cardiovascular Exam Cardiovascular Exam: REGULAR RHYTHM, +S1, +S2 - GI/Abdominal Exam GI & Abdominal Exam: Normal Bowel Sounds. absent: Distended, Tenderness - Extremities Exam Extremities exam: full ROM - Neurological Exam Neurological exam: Alert, Oriented x3 - Psychiatric Exam Psychiatric exam: Normal Affect, Normal Mood - Skin Skin Exam: Dry, Intact, Normal Color, Warm Discharge Plan - Discharge Medications Prescriptions: Amoxicillin/Clavulanate [Augmentin 500 MG-125 MG] 1 tab PO BID 7 Days #14 tab Sennosides A and B [Senokot Tab] 8.6 mg PO DAILY #30 tab - Follow Up Plan Condition: FAIR Disposition: HOME/ ROUTINE Instructions: Heart Healthy Diet, Heart Failure, Adult (DC), Chest Pain (DC), Amoxicillin and Clavulanate Additional Instructions: Patient stable for discharge as per Dr Wright Patient is to take augmentin 500mg per mouth twice a day for 7 days, dispense #14 tabs, for inflammation of her small bowel Patient is to take senokot 1 tab per mouth once a day as needed for constipation, dispense #30 tabs, for constipation Patient is to avoid any pain medication of the NSAID class, such as motrin, advil or aleve. Patient to follow up with primary doctor Patricia after 7-10 days following discharge Patient to continue home medications resume daily activities and diet if patient symptoms recur or worsen, patient to return to ER Referrals: Chuck Gomez MD [Staff Provider] -
[2018-10-04 07:50] LABS: BASO % 0.4 % (0.0-2.0); EOS # 0.2 K/uL (0.0-0.7); EOS % 3.5 % (0.0-4.0); HEMOGLOBIN 10.8 g/dL (11.0-16.0); LYMPH # 1.9 K/uL (1.0-4.3); MEAN CELL VOLUME 89.3 fL (81.0-99.0); MEAN CORPUSCULAR HEMOGLOBIN 29.9 pg (27.0-31.0); MEAN CORPUSCULAR HGB CONC 33.4 g/dL (33.0-37.0); MEAN PLATELET VOLUME 9.6 fL (7.2-11.7); MONO # 0.6 K/uL (0.0-0.8); NEUT # 2.6 K/uL (1.8-7.0); NEUT % 49.1 % (50.0-75.0); RBC 3.61 Mil/uL (3.80-5.20); RED CELL DISTRIBUTION WIDTH 14.4 % (11.5-14.5); WHITE BLOOD COUNT 5.3 K/uL (4.8-10.8)
[2018-10-04 08:17] LABS: ALB/GLOB RATIO 1.4 (1.0-2.1); ALBUMIN 3.4 g/dL (3.5-5.0); CALCIUM 8.2 mg/dl (8.6-10.4)
[2018-10-04] MEDS: (Novolin R) Insulin Human Regular 100 units/ml vial SC SCH ×2 (08:23→12:34)
[2018-10-04] MEDS: Simethicone 80 mg Chewtab PO SCH ×2 (11:52→14:49)
--- NOTE | 2018-10-04 12:18 | CT ---
PROCEDURE: CT Abdomen and Pelvis without IV contrast. HISTORY: abdominal pain COMPARISON: CT abdomen and pelvis with contrast performed 09/16/18 TECHNIQUE: Contiguous axial images of the abdomen and pelvis. Oral contrast was administered. No IV contrast given. Coronal and Sagittal reformats generated and reviewed. Radiation dose: Total exam DLP = 579.45 mGy-cm. This CT exam was performed using one or more of the following dose reduction techniques: Automated exposure control, adjustment of the mA and/or kV according to patient size, and/or use of iterative reconstruction technique. FINDINGS: There is limited evaluation of the solid organs without the administration of IV contrast. LOWER THORAX: No visible consolidation, pleural effusion, or pneumothorax. Visualized portions of the heart appear within normal limits of size. LIVER: Unremarkable unenhanced appearance. GALLBLADDER AND BILE DUCTS: Cholecystectomy with mild intrahepatic and extrahepatic biliary ductal dilatation. PANCREAS: Atrophic. SPLEEN: Splenic calcifications, likely granulomas. ADRENALS: Unremarkable unenhanced appearance. KIDNEYS AND URETERS: No hydronephrosis or obstructing renal calculus. 12 mm left upper pole hypodensity measures approximately 8 HU, consistent with cyst. 16 mm left upper pole hypodense mass measures approximately 21 HU, indeterminant. 18 mm left lower pole hypodensity measures approximately 8 HU, consistent with cyst. BLADDER: The urinary bladder appears unremarkable. REPRODUCTIVE: Unremarkable. APPENDIX: The appendix appears within normal limits of caliber. No secondary signs of acute appendicitis. BOWEL: Ingested debris within an incompletely distended stomach which also appears thick walled. Duodenum appears thick walled raising concern for duodenitis. The bowel loops appear within normal limits of caliber without evidence of intestinal obstruction. Diverticulosis without CT evidence of diverticulitis. Moderate constipation. PERITONEUM: No significant free fluid. No definite free air. LYMPH NODES: No bulky lymphadenopathy identified. VASCULATURE: No aortic aneurysm. Atherosclerotic calcification of the aorta and branches. BONES: Degenerative changes. Compression fracture deformity L2. OTHER FINDINGS: None. IMPRESSION: Incompletely distended stomach containing debris and with thick-walled appearance; correlate clinically for infectious/inflammatory etiologies. Duodenum appears thick walled; correlate clinically for possibility of duodenitis. Additional findings as above. Preliminary impression was provided by De Correspondent
--- NOTE | 2018-10-04 12:40 | CP.PCM.PN ---
Subjective - Date & Time of Evaluation Date of Evaluation: 10/04/18 Time of Evaluation: 12:40 - Subjective Subjective: No new complaints and walking in the room. Objective - Vital Signs/Intake and Output Vital Signs (last 24 hours): Temp Pulse Resp BP Pulse Ox 97.6 F 60 20 145/60 96 10/04/18 09:22 10/04/18 09:22 10/04/18 09:22 10/04/18 09:22 10/04/18 09:22 - Medications Medications: Current Medications Acetaminophen (Tylenol 325mg Tab) 650 mg PO Q6 PRN PRN Reason: Pain, Mild (1-3) Last Admin: 10/04/18 06:12 Dose: 650 mg Amlodipine Besylate (Norvasc) 10 mg PO DAILY [facility] Last Admin: 10/04/18 11:52 Dose: 10 mg Aspirin (Ecotrin) 81 mg PO DAILY [facility] Last Admin: 10/04/18 11:56 Dose: 81 mg Dextrose (Dextrose 50% Inj) 0 ml IV STAT PRN; Protocol PRN Reason: Hypoglycemia Protocol Dextrose (Glutose 15) 0 gm PO ONCE PRN; Protocol PRN Reason: Hypoglycemia Protocol Docusate Sodium (Colace) 100 mg PO TID [facility] Last Admin: 10/04/18 11:51 Dose: 100 mg Famotidine (Pepcid) 20 mg PO DAILY [facility] Last Admin: 10/04/18 11:52 Dose: 20 mg Ferrous Sulfate (Feosol) 325 mg PO DAILY [facility] Last Admin: 10/04/18 11:57 Dose: 325 mg Glucagon (Glucagen Diagnostic Kit) 0 mg IM STAT PRN; Protocol PRN Reason: Hypoglycemia Protocol Heparin Sodium (Porcine) (Heparin) 5,000 units SC Q8 [facility] Last Admin: 10/04/18 05:24 Dose: 5,000 units Dextrose (Dextrose 5% In Water 1000 Ml) 1,000 mls @ 0 mls/hr IV .Q0M PRN; Protocol PRN Reason: Hypoglycemia Protocol Ibuprofen (Motrin Tab) 600 mg PO Q8H [facility] Last Admin: 10/04/18 12:02 Dose: 600 mg Insulin Human Regular (Novolin R) 0 unit SC ACHS [facility]; Protocol Last Admin: 10/04/18 12:34 Dose: 2 unit Losartan Potassium (Cozaar) 25 mg PO DAILY [facility] Last Admin: 10/04/18 11:51 Dose: 25 mg Rosuvastatin Calcium (Crestor) 5 mg PO HS [facility] Last Admin: 10/02/18 22:17 Dose: 5 mg Simethicone (Mylicon Chew Tab) 80 mg PO QID [facility] Last Admin: 10/04/18 11:52 Dose: 80 mg Tiotropium [place] (Spiriva) 18 mcg INH RQ24 [facility] Last Admin: 10/03/18 10:47 Dose: Not Given - Labs Labs: 10/04/18 07:35 10/04/18 07:35 PT 10.8 SECONDS (9.7-12.2) 10/01/18 20:34 INR 1.0 10/01/18 20:34 APTT 26 SECONDS (21-34) 10/01/18 20:34 - Head Exam Head Exam: NORMOCEPHALIC - Neck Exam Neck Exam: Normal Inspection - Respiratory Exam Respiratory Exam: NORMAL BREATHING PATTERN - Cardiovascular Exam Cardiovascular Exam: REGULAR RHYTHM - Extremities Exam Extremities Exam: Normal Inspection - Neurological Exam Neurological Exam: Alert, Oriented x3 Assessment and Plan (1) CHF (congestive heart failure) Assessment & Plan: BP control and fluid restriction. Status: Acute (2) Chest pain Assessment & Plan: No further cardiac work-up at this time. may D/C home. Status: Chronic (3) Abdominal pain Status: Acute
[2018-10-04] MEDS ORDERED: Aluminum Hydroxide/Magnesium Hydroxide Susp (30 mL) PO PRN (13:53)
[2018-10-04] MEDS ORDERED: Bisacodyl 5mg EC Tab PO ONE (14:02)
[2018-10-04] MEDS ORDERED: Piperacillin/Tazobact 3.375 GM in Sodium Chloride 100 ML IVPB SCH (14:30)
[2018-10-04] MEDS ORDERED: Piperacillin/Tazobact 2.25 GM in Sodium Chloride 100 ML IVPB SCH (16:00)
[2018-10-04 16:14] VITALS: BP 131/61; PULSE 68; TEMP 98.2; O2SAT 97
--- NOTE | 2018-10-06 08:35 | CARD ---
APPROVED REPORT Date of service: 10/02/2018 EKG Measurement Heart [id number] [id number] <Conclusion> Sinus bradycardia Left bundle branch block Abnormal ECG
--- NOTE | 2018-10-06 08:37 | CARD ---
APPROVED REPORT Date of service: 10/02/2018 EKG Measurement Heart [id number] 142P52 [id number] <Conclusion> Sinus bradycardia Left axis deviation Left bundle branch block Abnormal ECG
== END 2018-10-04 18:20 | disposition home or self-care (01) ==
LOC: C.ER 19:09 → C.6T 22:00
PROVIDERS: ADMIT Hospitalist; ATTEND Hospitalist
DX: R07.89 Other chest pain (principal); K29.80 Duodenitis without bleeding; I13.0 Hypertensive heart and chronic kidney disease with heart failure and stage 1 through stage 4 chronic kidney disease, or unspecified chronic kidney disease; E11.65 Type 2 diabetes mellitus with hyperglycemia; E11.22 Type 2 diabetes mellitus with diabetic chronic kidney disease; N18.9 Chronic kidney disease, unspecified; M54.9 Dorsalgia, unspecified; I50.9 Heart failure, unspecified; J44.9 Chronic obstructive pulmonary disease, unspecified; I25.10 Atherosclerotic heart disease of native coronary artery without angina pectoris; G89.29 Other chronic pain; K59.00 Constipation, unspecified; M81.0 Age-related osteoporosis without current pathological fracture; D64.9 Anemia, unspecified; E78.5 Hyperlipidemia, unspecified; E78.00 Pure hypercholesterolemia, unspecified; H40.9 Unspecified glaucoma; F41.9 Anxiety disorder, unspecified; M19.90 Unspecified osteoarthritis, unspecified site; Z79.899 Other long term (current) drug therapy; Z90.710 Acquired absence of both cervix and uterus; Z87.891 Personal history of nicotine dependence; Z95.5 Presence of coronary angioplasty implant and graft; Z91.81 History of falling; R41.0 Disorientation, unspecified; Z82.5 Family history of asthma and other chronic lower respiratory diseases
CPT/HCPCS: 36415; 71045; 74176; 80053; 81001; 82948; 83690; 83880; 84484; 85025; 85610; 85730; 93005; 96372; 96374; 96375; 97116; 97162; 97530; 99284; G0378; G8978; G8979; J1644; J1885; J1940; Q9966

== ENCOUNTER 2018-11-20 16:42 | Inpatient (IN) | payer MEDICARE, MEDICAID ==
[2018-11-20 16:42] VITALS: BMI 20.2
[2018-11-20 17:31] LABS: BASO # 0.1 K/uL (0.0-0.2); BASO % 0.9 % (0.0-2.0); EOS # 0.3 K/uL (0.0-0.7); EOS % 4.5 % (0.0-4.0); HEMOGLOBIN 11.4 g/dL (11.0-16.0); LYMPH # 1.7 K/uL (1.0-4.3); LYMPH % 29.9 % (20.0-40.0); MEAN CELL VOLUME 89.5 fL (81.0-99.0); MEAN CORPUSCULAR HEMOGLOBIN 29.5 pg (27.0-31.0); MEAN PLATELET VOLUME 8.6 fL (7.2-11.7); MONO # 0.6 K/uL (0.0-0.8); MONO % 9.7 % (0.0-10.0); NEUT # 3.1 K/uL (1.8-7.0); RBC 3.88 Mil/uL (3.80-5.20); RED CELL DISTRIBUTION WIDTH 14.5 % (11.5-14.5); WHITE BLOOD COUNT 5.7 K/uL (4.8-10.8)
[2018-11-20 17:41] LABS: INR 1.1; PROTHROMBIN TIME 11.8 SECONDS (9.7-12.2)
[2018-11-20 17:42] LABS: ALB/GLOB RATIO 1.5 (1.0-2.1); ALBUMIN 3.9 g/dL (3.5-5.0); BLOOD UREA NITROGEN 30 mg/dL (7-17); CALCIUM 8.9 mg/dl (8.6-10.4); GFR NON-AFRICAN AMERICAN 52
--- NOTE | 2018-11-20 17:48 | C.PDOC ---
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 Patient reports 2-3 weeks of worsening left chest pain with concurrent SOB, pt reports episodes of pain are sharp and last several seconds before resolving. Pt states she has baseline chest pain and SOB, however episodes of pain have been more severe and more frequent that she was sent to the ED for evaluation. She reports pain is often reproducible with head rotation and palpation, and often swells. Patient presented to ED accompanied by daughter who is also being evaluated for complaints of SOB. History limited 2/2 patient's forgetfulness. <Dolores Vences - Last Filed: 11/20/18 18:59> History Per: Patient History/Exam Limitations: clinical condition Onset/Duration Of Symptoms: Days, Intermittent Episodes, Persistent Current Symptoms Are (Timing): Gone Pain Scale Rating Of: 0 Quality: Sharp Associated Symptoms: Dyspnea. denies: Nausea, Diaphoresis, Syncope Exacerbating Factors: Turning, Movement, Other (palpation) Alleviating Factors: Rest, Other (slow deep breath) <Dolores Vences - Last Filed: 11/20/18 18:59> <Jesus Lazo - Last Filed: 11/21/18 14:35> Time Seen by Provider: 11/20/18 17:02 Chief Complaint (Nursing): Chest Pain Past Medical History Reviewed: Historical Data, Nursing Documentation, Vital Signs Vital Signs: Last Vital Signs Temp 98.2 F 11/20/18 16:57 Pulse 77 11/20/18 16:57 Resp 16 11/20/18 16:57 BP 171/63 H 11/20/18 16:57 Pulse Ox 100 11/20/18 16:57 - Medical History PMH: Anemia, Anxiety, Arthritis, Asthma, Back Problems (HX CHRONIC BACK PAIN), CAD, COPD, Diabetes, Fractures (left wrist AND RT. HIP, LEFT LEG), Gastritis, HTN, Hypercholesterolemia, Hyperlipidemia, Osteoporosis Denies: Chronic Kidney Disease, Seizures Surgical History: Coronary Stent, Endoscopy - [facility] Procedures APPLICATION OF SPLINT (06/18/14) EXCISION OF ASCENDING COLON, ENDO, DIAGN (12/05/16) EXCISION OF STOMACH, ENDO, DIAGN (12/05/16) FLUOROSCOPY OF LEFT HEART USING LOW OSMOLAR CONTRAST (02/05/16) GAIT TRAINING/AMBULAT TREATMENT USING ASSIST EQUIPMENT (11/08/15) INTRODUCE ANTI-INFLAM IN PERIPH NRV, PLEXI, PERC (11/08/15) INTRODUCE REGIONAL ANESTH IN PERIPH NRV, PLEXI, PERC (11/08/15) MEASURE OF CARDIAC SAMPL & PRESSURE, L HEART, PERC APPROACH (02/05/16) NEBULIZER THERAPY (06/16/14) REPAIR LEFT UPPER ARM TENDON, OPEN APPROACH (11/08/15) REPAIR OF HAMMER TOE (07/17/13) REPOSITION LEFT HUMERAL SHAFT WITH INT FIX, OPEN APPROACH (11/08/15) TRANSFUSE NONAUT RED BLOOD CELLS IN PERIPH VEIN, PERC (12/05/16) Family History: States: Unknown Family Hx - Social History Hx Tobacco Use: No (Quit) Hx Alcohol Use: No Hx Substance Use: No - Immunization History Hx Tetanus Toxoid Vaccination: Yes (3 mos. ago) Hx Influenza Vaccination: Yes Hx Pneumococcal Vaccination: Yes <Vences,Dolores - Last Filed: 11/20/18 18:59> Vital Signs: Last Vital Signs Temp 97.9 F 11/21/18 07:00 Pulse 64 11/21/18 10:21 Resp 16 11/21/18 10:21 BP 153/68 H 11/21/18 10:21 Pulse Ox 96 11/21/18 10:21 - [facility] Procedures APPLICATION OF SPLINT (06/18/14) EXCISION OF ASCENDING COLON, ENDO, DIAGN (12/05/16) EXCISION OF STOMACH, ENDO, DIAGN (12/05/16) FLUOROSCOPY OF LEFT HEART USING LOW OSMOLAR CONTRAST (02/05/16) GAIT TRAINING/AMBULAT TREATMENT USING ASSIST EQUIPMENT (11/08/15) INTRODUCE ANTI-INFLAM IN PERIPH NRV, PLEXI, PERC (11/08/15) INTRODUCE REGIONAL ANESTH IN PERIPH NRV, PLEXI, PERC (11/08/15) MEASURE OF CARDIAC SAMPL & PRESSURE, L HEART, PERC APPROACH (02/05/16) NEBULIZER THERAPY (06/16/14) REPAIR LEFT UPPER ARM TENDON, OPEN APPROACH (11/08/15) REPAIR OF HAMMER TOE (07/17/13) REPOSITION LEFT HUMERAL SHAFT WITH INT FIX, OPEN APPROACH (11/08/15) TRANSFUSE NONAUT RED BLOOD CELLS IN PERIPH VEIN, PERC (12/05/16) <Jesus Lazo - Last Filed: 11/21/18 14:35> Review Of Systems Eyes: Negative for: Vision Change Cardiovascular: Positive for: Chest Pain, Light Headedness. Negative for: Palpitations, Edema Respiratory: Positive for: Cough, Shortness of Breath, Wheezing Gastrointestinal: Positive for: Abdominal Pain, Constipation. Negative for: Nausea, Vomiting, Melena, Hematochezia Genitourinary: Negative for: Dysuria Musculoskeletal: Positive for: Leg Pain Skin: Positive for: Other (swelling to left anterior chest wall) Neurological: Positive for: Dizziness. Negative for: Numbness, Change in Speech, Headache <Dolores Vences - Last Filed: 11/20/18 18:59> Physical Exam - Physical Exam Appears: Non-toxic, No Acute Distress Skin: Normal Color, Warm, Dry, No Cyanotic Head: Atraumatic, Normacephalic Eye(s): bilateral: Normal Inspection, PERRL, EOMI Oral Mucosa: Moist Neck: Normal, Normal ROM Chest: No Tenderness, Other (no swelling) Cardiovascular: Rhythm Regular Respiratory: No Accessory Muscle Use, Wheezing Gastrointestinal/Abdominal: Normal Exam, Bowel Sounds, Soft, No Tenderness, No Distention Back: Normal Inspection Extremity: No Pedal Edema, No Calf Tenderness Pulses: Left Radial: Normal, Right Radial: Normal Neurological/Psych: Oriented x3, Normal Speech <Dolores Vences - Last Filed: 11/20/18 18:59> ED Course And Treatment - Laboratory Results Result Diagrams: 11/20/18 17:23 11/20/18 17:23 Lab Interpretation: No Changes Compared To Prior Results ECG Rhythm: Sinus Rhythm, L BBB ECG Interpretation: No Changes From Prior Rate From EC O2 Sat by Pulse Oximetry: 100 Pulse Ox Interpretation: Normal - Radiology CXR: Viewed By Me Reevaluation Time: 18:53 Reassessment Condition: Unchanged <Dolores Vences - Last Filed: 11/20/18 18:59> - Laboratory Results Result Diagrams: 11/21/18 08:23 11/21/18 08:23 Lab Results: PT 11.8 SECONDS (9.7-12.2) 11/20/18 17:23 INR 1.1 11/20/18 17:23 APTT 32 SECONDS (21-34) 11/20/18 17:23 Troponin I < 0.0120 ng/mL (0.00-0.120) 11/21/18 08:23 NT-Pro-B Natriuret Pep 2180 pg/mL (0-900) H 11/21/18 08:23 Total Bilirubin 0.3 mg/dL (0.2-1.3) 11/21/18 08:23 AST 38 U/L (14-36) H D 11/21/18 08:23 ALT 26 U/L (9-52) 11/21/18 08:23 Alkaline Phosphatase 81 U/L (38-126) 11/21/18 08:23 Total Protein 6.7 g/dL (6.3-8.3) 11/21/18 08:23 Albumin 4.0 g/dL (3.5-5.0) 11/21/18 08:23 Globulin 2.6 gm/dL (2.2-3.9) 11/21/18 08:23 Albumin/Globulin Ratio 1.5 (1.0-2.1) 11/21/18 08:23 <Jesus Lazo - Last Filed: 11/21/18 14:35> Medical Decision Making Medical Decision Makin87 year old female presenting with chest pain/SOB CBC CMP TROP CK-MB CK PT/PTT EKG CXR ASA 325mg No acute changes Pt asymptomatic <Dolores Vences - Last Filed: 11/20/18 18:59> Medical Decision Making: Seen and examined with resident. 87 y/o F p/w chest pain. On exam, no chest tenderness. <Jesus Lazo - Last Filed: 11/21/18 14:35> Disposition Discussed With : Torie Wright Comment: Spoke with Dr. Wright who accepts pt to hospitalist service, will endorse to Dr. Vidal. Requesting Dr. Hernandez be consulted Doctor Will See Patient In The: Hospital Counseled Patient/Family Regarding: Studies Performed, Diagnosis, Need For Follo wup - Disposition Disposition Time: 18:38 - POA Present On Arrival: None <Dolores Vences - Last Filed: 11/20/18 18:59> <Jesus Lazo - Last Filed: 11/21/18 14:35> - Disposition Disposition: HOSPITALIZED Condition: FAIR - Clinical Impression Clinical Impression: Chest discomfort
[2018-11-20 17:54] LABS: CK-MB 3.79 ng/mL (0.0-3.38)
[2018-11-20 18:02] LABS: ALT/SGPT 25 U/L (9-52); AST/SGOT 48 U/L (14-36)
[2018-11-20] MEDS ORDERED: Alum-Mag Hydrox-Simethicone Susp (30 mL) PO STA (18:39)
[2018-11-20] MEDS ORDERED: Albuterol-Ipratrop 3 mg / 0.5 (3 ml) UD IH STA (18:39)
[2018-11-20] MEDS ORDERED: Magnesium Citrate Oral SOL (300 ml) PO ONE (18:39)
[2018-11-20] MEDS ORDERED: MethylPREDNISolone 40 mg Vial IVP STA (18:40)
[2018-11-20] MEDS ORDERED: Aluminum Hydroxide/Magnesium Hydroxide Susp (30 mL) ONE (19:21)
[2018-11-20] MEDS ORDERED: Magnesium Citrate Oral SOL (300 ml) ONE (19:21)
[2018-11-20] MEDS ORDERED: Albuterol-Ipratrop 3 mg / 0.5 (3 ml) UD ONE (19:36)
--- NOTE | 2018-11-20 22:12 | CP.PCM.HP ---
<Ashlie Coronado - Last Filed: 11/20/18 22:35> History of Present Illness - History of Present Illness History of Present Illness: cc: "my chest hurts" Ms. Curiel is a 87 year old female with PMHx of CHF, CAD, DM2, HTN, HLD, asthma and arthritis sent in by her conservation or heritage architect, Dr. Hernandez, after a routine appointment for worsening angina requesting inpatient stress test. For the last 2-3 weeks, her angina has begun to occur throughout the day for minutes at a time, even at rest. She will sit down when the chest pain starts and takes deep breaths to ease the pain away. It takes seconds to subside but she feels soreness for a few minutes before it entirely subsides. She has concurrent SOB without coughing or wheezing. History is limited 2/2 patient's forgetfulness and distraction of her daughter also being evaluated in the ED. PMH: CHF, CAD, DM2, HTN, HLD, asthma and arthritis Med: unknown. per chart review: Aspirin 81mg daily, Crestor 5mg po HS, Cozaar 25mg po daily, norvasc 10mg po daily, spiriva 18mcg INH daily, xanax 1mg daily, tylenol prn, ferrous sulfate 325mg daily, Colace 100mg TID All: NKDA PSHx: cardiac cath stents - 02/2016, hysterectomy, oophorectomy, cataract surgery FMHx: Mother - asthma, heart disease, at age 92 SHx: Smoked 1ppd x 50 yrs, quit 20 yrs ago; social drinker in the past, denies current use. denies illicit drug use. Patient states she lives with her son PMD: Patricia Cardio: David Full Code Present on Admission - Present on Admission Any Indicators Present on Admission: No Review of Systems - Constitutional Constitutional: Weight Loss. absent: Chills, Fatigue, Fever - EENT Eyes: absent: Blurred Vision, Diplopia Ears: absent: Tinnitus, Dizziness Nose/Mouth/Throat: absent: Nasal Congestion, Nasal Discharge - Cardiovascular Cardiovascular: Chest Pain, Chest Pain at Rest, Palpitations. absent: Pedal Edema - Respiratory Respiratory: Dyspnea, Dyspnea on Exertion. absent: Cough, Wheezing, Pain with Coughing - Gastrointestinal Gastrointestinal: absent: Constipation, Diarrhea, Nausea, Vomiting - Musculoskeletal Musculoskeletal: absent: Numbness, Tingling - Integumentary Integumentary: absent: Bleeding Lesions, Rash - Neurological Neurological: Weakness. absent: Numbness, Tingling Past Patient History - Infectious Disease Hx of Infectious Diseases: None - Tetanus Immunizations Tetanus Immunization: Unknown - Past Medical History & Family History Past Medical History?: Yes - Past Social History Smoking Status: Former Smoker Alcohol: None Drugs: Denies Home Situation {Lives}: With Family - CARDIAC Hx Hypercholesterolemia: Yes Hx Hypertension: Yes - PULMONARY Hx Asthma: Yes Hx Chronic Obstructive Pulmonary Disease (COPD): Yes - NEUROLOGICAL Hx Seizures: No - HEENT Hx HEENT Problems: Yes Hx Cataracts: Yes (right eye) Hx Glaucoma: Yes (left eye) - RENAL Hx Chronic Kidney Disease: No - HEMATOLOGICAL/ONCOLOGICAL Hx Anemia: Yes - INTEGUMENTARY Hx Dermatological Problems: No - MUSCULOSKELETAL/RHEUMATOLOGICAL Hx Arthritis: Yes Hx Fractures: Yes (left wrist AND RT. HIP, LEFT LEG) Hx Osteoporosis: Yes - GASTROINTESTINAL Hx Gastritis: Yes - GENITOURINARY/GYNECOLOGICAL Hx Genitourinary Disorders: No - PSYCHIATRIC Hx Anxiety: Yes Hx Substance Use: No - SURGICAL HISTORY Hx Coronary Stent: Yes - ANESTHESIA Hx Anesthesia: Yes Hx Anesthesia Reactions: No Hx Malignant Hyperthermia: No Meds Allergies/Adverse Reactions: Allergies Allergy/AdvReac Type Severity Reaction Status Date / Time No Known Allergies Allergy Verified 11/20/18 17:04 Physical Exam - Constitutional Appears: Non-toxic, No Acute Distress - Head Exam Head Exam: ATRAUMATIC, NORMOCEPHALIC - Eye Exam Eye Exam: EOMI, PERRL Pupil Exam: NORMAL ACCOMODATION Additional comments: glasses - ENT Exam ENT Exam: Mucous Membranes Dry - Neck Exam Neck exam: Positive for: Normal Inspection. Negative for: Lymphadenopathy, Tenderness - Respiratory Exam Respiratory Exam: Clear to Auscultation Bilateral, NORMAL BREATHING PATTERN. absent: Rales, Rhonchi, Wheezes - Cardiovascular Exam Cardiovascular Exam: Irregular Rhythm, +S1, +S2. absent: Gallop, Rubs - GI/Abdominal Exam GI & Abdominal Exam: Normal Bowel Sounds, Soft. absent: Guarding, Rigid, Tenderness - Extremities Exam Extremities exam: Positive for: normal capillary refill, pedal edema, pedal pulses present Additional comments: 1+ pitting edema in bilateral ankles - Back Exam Back exam: absent: CVA tenderness (L), CVA tenderness (R) - Neurological Exam Neurological exam: Alert, CN II-XII Intact, Normal Gait, Oriented x3, Reflexes Normal - Psychiatric Exam Psychiatric exam: Anxious - Skin Skin Exam: Dry, Intact, Warm Additional comments: rubor Results - Vital Signs Recent Vital Signs: Last Vital Signs Temp 98.1 F 11/20/18 20:30 Pulse 72 11/20/18 20:30 Resp 20 11/20/18 20:30 BP 189/71 H 11/20/18 20:34 Pulse Ox 96 11/20/18 20:30 - Labs Result Diagrams: 11/20/18 17:23 11/20/18 17:23 Labs: Laboratory Results - last 24 hr 11/20/18 11/20/18 11/20/18 17:23 17:23 17:23 WBC 5.7 RBC 3.88 Hgb 11.4 Hct 34.7 MCV 89.5 MCH 29.5 MCHC 33.0 RDW 14.5 Plt Count 230 MPV 8.6 Neut % (Auto) 55.0 Lymph % (Auto) 29.9 [place] % (Auto) 9.7 Eos % (Auto) 4.5 H Baso % (Auto) 0.9 Neut # (Auto) 3.1 Lymph # (Auto) 1.7 [place] # (Auto) 0.6 Eos # (Auto) 0.3 Baso # (Auto) 0.1 PT 11.8 INR 1.1 APTT 32 Sodium 137 Potassium 4.6 Chloride 104 Carbon Dioxide 29 Anion Gap 9 L BUN 30 H Creatinine 1.0 Est GFR ( Amer) > 60 Est GFR (Non-Af Amer) 52 Random Glucose 297 H D Calcium 8.9 Total Bilirubin 0.5 AST 48 H D ALT 25 Alkaline Phosphatase 65 Total Creatine Kinase 410 H CK-MB (Mass) 3.79 H Troponin I < 0.0120 Total Protein 6.5 Albumin 3.9 Globulin 2.6 Albumin/Globulin Ratio 1.5 Assessment & Plan - Assessment and Plan (Free Text) Assessment: 87yo F with PMH DM, HTN, HLD, CAD s/p coronary stent, CHF, COPD, asthma, anemia, anxiety and arthritis sent in by conservation or heritage architect, Dr. Hernandez, for unstable angina. Plan: Unstable Angina Duonebs x1, Maalox 30mL PO x1, ASA 325mg PO x1, Mag Citrate 300mL PO x1, Solumedrol 125mg IVP given in ED EKG: NSR@63, LBBB CXR (11/20): pending read. prelim: neg - Trop neg x1, f/u x2 - Tylenol 650mg po q6 prn - Cardio consulted: Dr. Hernandez - help appreciated - for stress test tomorrow - monitor on TELE Diastolic CHF, chronic CAD s/p coronary stent Last ECHO 01/08/18: LVEF 65-70%, diastolic dysfunction Cardiac cath in 2015 with 2 stents placed - home ASA 81mg po daily - home Crestor 5mg po HS - Cardio on case: Dr. Hernandez Hypertension - home Cozaar 25mg po daily - home Norvasc 10mg po daily - monitor vitals Diabetes Mellitus Last Hgb A1c 01/09/18: 7.1 - f/u Hgb A1c - Accuchecks ACHS -> q6 in light of NPO@MN - ISS, low - hypoglycemia protocol Hyperlipidemia Last lipid panel 02/11/18: TG 66 Chol 107 LDL 41 HDL 46 - home Crestor 5mg po HS COPD - home Spiriva 18mcg INH daily Anxiety - home Xanax 1mg po HS Arthritis - home Tylenol 650mg po prn Anemia - home Ferrous sulfate 325mg po daily - monitor with AM labs PPx - DVT: Heparni 5000u SC q8, SCDs - GI: home Colace 100mg po TID - Diet: HHD, NPO@MN for stress test d/w Dr. Marcy Coronado PGY-1 - Date & Time Date: 11/20/18 Time: 19:00 <Jose Vidal - Last Filed: 11/21/18 06:44> Results - Vital Signs Recent Vital Signs: Last Vital Signs Temp 97.5 F L 11/21/18 04:23 Pulse 62 11/21/18 04:23 Resp 20 11/21/18 04:23 BP 149/60 11/21/18 04:23 Pulse Ox 94 L 11/21/18 04:23 - Labs Result Diagrams: 11/20/18 17:23 11/20/18 17:23 Labs: Laboratory Results - last 24 hr 11/20/18 11/20/18 11/20/18 17:23 17:23 17:23 WBC 5.7 RBC 3.88 Hgb 11.4 Hct 34.7 MCV 89.5 MCH 29.5 MCHC 33.0 RDW 14.5 Plt Count 230 MPV 8.6 Neut % (Auto) 55.0 Lymph % (Auto) 29.9 [place] % (Auto) 9.7 Eos % (Auto) 4.5 H Baso % (Auto) 0.9 Neut # (Auto) 3.1 Lymph # (Auto) 1.7 [place] # (Auto) 0.6 Eos # (Auto) 0.3 Baso # (Auto) 0.1 PT 11.8 INR 1.1 APTT 32 Sodium 137 Potassium 4.6 Chloride 104 Carbon Dioxide 29 Anion Gap 9 L BUN 30 H Creatinine 1.0 Est GFR ( Amer) > 60 Est GFR (Non-Af Amer) 52 POC Glucose (mg/dL) Random Glucose 297 H D Calcium 8.9 Total Bilirubin 0.5 AST 48 H D ALT 25 Alkaline Phosphatase 65 Total Creatine Kinase 410 H CK-MB (Mass) 3.79 H Troponin I < 0.0120 Total Protein 6.5 Albumin 3.9 Globulin 2.6 Albumin/Globulin Ratio 1.5 11/20/18 11/20/18 11/21/18 21:32 23:25 06:20 WBC RBC Hgb Hct MCV MCH MCHC RDW Plt Count MPV Neut % (Auto) Lymph % (Auto) [place] % (Auto) Eos % (Auto) Baso % (Auto) Neut # (Auto) Lymph # (Auto) [place] # (Auto) Eos # (Auto) Baso # (Auto) PT INR APTT Sodium Potassium Chloride Carbon Dioxide Anion Gap BUN Creatinine Est GFR ( Amer) Est GFR (Non-Af Amer) POC Glucose (mg/dL) 258 H 313 H Random Glucose Calcium Total Bilirubin AST ALT Alkaline Phosphatase Total Creatine Kinase 342 H CK-MB (Mass) 2.92 Troponin I < 0.0120 Total Protein Albumin Globulin Albumin/Globulin Ratio Assessment & Plan - Date & Time Date: 11/21/18 (I have seen and examined the patient. I agree with the findings and plan of care as documented by Dr. Coronado. Patient with chest pain. Chronic diastolic CHF. History of hypertension. Consult to Dr. Benz. Espinal with EKG. For stress test. Monitor for acute changes.) Time: 06:43 Attending/Attestation - Attestation I have personally seen and examined this patient.: Yes I have fully participated in the care of the patient.: Yes I have reviewed all pertinent clinical information: Yes
[2018-11-20] MEDS ORDERED: Glucagon Recombinant 1 mg Inj IM PRN (23:11)
[2018-11-20] MEDS ORDERED: Dextrose 50% SYRINGE Inj (50 ml) IV PRN (23:11)
[2018-11-20 23:52] LABS: CK-MB 2.92 ng/mL (0.0-3.38)
[2018-11-21] MEDS ORDERED: Albuterol-Ipratrop 3 mg / 0.5 (3 ml) UD INH SCH (02:00)
[2018-11-21] MEDS: (Novolog) Insulin Aspart, Recombinant 100 u/ml 10 ml vial SC SCH ×3 (07:38→21:37)
[2018-11-21] MEDS ORDERED: Tiotropium 18 mcg Cap For Inhalation INH SCH (08:00)
[2018-11-21 08:42] LABS: BASO % 0.2 % (0.0-2.0); HEMOGLOBIN 11.8 g/dL (11.0-16.0); LYMPH # 0.8 K/uL (1.0-4.3); LYMPH % 14.4 % (20.0-40.0); MEAN CORPUSCULAR HEMOGLOBIN 30.2 pg (27.0-31.0); MEAN PLATELET VOLUME 9.4 fL (7.2-11.7); MONO # 0.1 K/uL (0.0-0.8); MONO % 1.7 % (0.0-10.0); NEUT # 4.5 K/uL (1.8-7.0); NEUT % 83.7 % (50.0-75.0); RBC 3.89 Mil/uL (3.80-5.20); RED CELL DISTRIBUTION WIDTH 14.1 % (11.5-14.5); WHITE BLOOD COUNT 5.4 K/uL (4.8-10.8)
[2018-11-21 09:01] LABS: ALB/GLOB RATIO 1.5 (1.0-2.1); CK-MB 1.94 ng/mL (0.0-3.38)
--- NOTE | 2018-11-21 09:20 | CP.PCM.PN ---
<Praveen Gonzalez - Last Filed: 11/21/18 19:10> Subjective - Date & Time of Evaluation Date of Evaluation: 11/21/18 Time of Evaluation: 08:00 - Subjective Subjective: PGY-[address] Jalloh Patient is seen and examined at bedside. Patient's daugther at bedside with her. Patient continues to have chest pain and shortness of breath, however improved since admission. Patient admits to being constipated, last BM was about two days ago, patient denies fever, chills, abdominal pain, nausea, vomiting, leg swelling or pain, or urinary symptoms. Patient to undergo Nuclear stress test with dr Hernandez today. patient is npo for test. Objective - Vital Signs/Intake and Output Vital Signs (last 24 hours): Temp Pulse Resp BP Pulse Ox 97.9 F 55 L 20 169/72 H 95 11/21/18 07:00 11/21/18 07:31 11/21/18 07:00 11/21/18 07:00 11/21/18 07:00 - Medications Medications: Current Medications Acetaminophen (Tylenol 325mg Tab) 650 mg PO Q6 PRN PRN Reason: Pain, Mild (1-3) Last Admin: 11/21/18 03:31 Dose: 650 mg Albuterol/Ipratropium (Duoneb 3 Mg/0.5 Mg (3 Ml) Ud) 3 ml INH RQ6 PRN PRN Reason: Shortness of Breath Alprazolam (Xanax) 1 mg PO HS [facility] Last Admin: 11/20/18 23:08 Dose: 1 mg Amlodipine Besylate (Norvasc) 10 mg PO DAILY [facility] Aspirin (Aspirin Chewable) 81 mg PO DAILY [facility] Dextrose (Dextrose 50% Inj) 0 ml IV STAT PRN; Protocol PRN Reason: Hypoglycemia Protocol Dextrose (Glutose 15) 0 gm PO ONCE PRN; Protocol PRN Reason: Hypoglycemia Protocol Docusate Sodium (Colace) 100 mg PO TID [facility] Famotidine (Pepcid) 20 mg PO DAILY [facility] Ferrous Sulfate (Feosol) 325 mg PO DAILY [facility] Glucagon (Glucagen Diagnostic Kit) 0 mg IM STAT PRN; Protocol PRN Reason: Hypoglycemia Protocol Heparin Sodium (Porcine) (Heparin) 5,000 units SC Q8 [facility] Last Admin: 11/21/18 05:51 Dose: 5,000 units Dextrose (Dextrose 5% In Water 1000 Ml) 1,000 mls @ 0 mls/hr IV .Q0M PRN; Protocol PRN Reason: Hypoglycemia Protocol Insulin Aspart (Novolog) 0 unit SC ACHS [facility]; Protocol Last Admin: 11/21/18 07:38 Dose: Not Given Losartan Potassium (Cozaar) 25 mg PO DAILY [facility] Rosuvastatin Calcium (Crestor) 5 mg PO HS [facility] Last Admin: 11/20/18 23:08 Dose: 5 mg - Labs Labs: 11/21/18 08:23 11/21/18 08:23 PT 11.8 SECONDS (9.7-12.2) 11/20/18 17:23 INR 1.1 11/20/18 17:23 APTT 32 SECONDS (21-34) 11/20/18 17:23 - Constitutional Appears: Non-toxic, No Acute Distress - Head Exam Head Exam: ATRAUMATIC, NORMOCEPHALIC - Eye Exam Eye Exam: EOMI, Normal appearance - ENT Exam ENT Exam: Mucous Membranes Moist, Normal Exam - Respiratory Exam Respiratory Exam: Clear to Ausculation Bilateral, NORMAL BREATHING PATTERN. absent: Chest Wall Tenderness, Rales, Rhonchi, Wheezes - Cardiovascular Exam Cardiovascular Exam: Tachycardia, Irregular Rhythm - GI/Abdominal Exam GI & Abdominal Exam: Soft, Normal Bowel Sounds - Extremities Exam Extremities Exam: Full ROM, Pedal Edema - Back Exam Back Exam: NORMAL INSPECTION - Neurological Exam Neurological Exam: Alert, Awake. absent: Normal Gait Additional comments: unstable gait, uses cane - Psychiatric Exam Psychiatric exam: Normal Affect, Normal Mood - Skin Skin Exam: Dry, Normal Color, Warm Assessment and Plan - Assessment and Plan (Free Text) Assessment: 87yo F with PMH DM, HTN, HLD, CAD s/p coronary stent, CHF, COPD, asthma, anemia, anxiety and arthritis sent in by cream buyer, Dr. Hernandez, for unstable angina to undergo Nuclear stress test today. Plan: Unstable Angina On Telemetry floor Duonebs x1, Maalox 30mL PO x1, ASA 325mg PO x1, Mag Citrate 300mL PO x1, Solumedrol 125mg IVP given in ED EKG: NSR@63, LBBB - previous EKG remarkable for LBBB CXR (11/20): No acute cardiopulmonary interval pathology noted. Chronic scarring right lung apex, no significant pleural effusion identified, no pneumothorax, aortic athersclerotic calcification on xray Echo (01/08/18): LVEF 65-70%, diastolic dysfunction Echo 11/21/18 - pending results - Trop neg x3 - Tylenol 650mg po q6 prn - Nuclear test done today - f/u results - Cardio consulted: Dr. Hernandez - help appreciated - Cardiac cath tomorrow at 8 am, npo after midnight Diastolic CHF, chronic CAD s/p coronary stent Last ECHO 01/08/18: LVEF 65-70%, diastolic dysfunction Cardiac cath in 2016 with 2 stents placed - home ASA 81mg po daily - home Crestor 5mg po HS - Cardio on case: Dr. Hernandez - nuclear stress test. Hypertension - home Cozaar 25mg po daily - home Norvasc 10mg po daily - monitor vitals Diabetes Mellitus Last Hgb A1c 01/09/18: 7.1 - f/u Hgb A1c - 7.7 - Accuchecks ACHS -> q6 - ISS, low - hypoglycemia protocol Hyperlipidemia Last lipid panel 02/11/18: TG 66 Chol 107 LDL 41 HDL 46 - home Crestor 5mg po HS COPD - home Spiriva 18mcg INH daily Anxiety - home Xanax 1mg po HS Arthritis - home Tylenol 650mg po prn Anemia - home Ferrous sulfate 325mg po daily - monitor with AM labs PPx - DVT: Heparni 5000u SC q8, SCDs - GI: home Colace 100mg po TID - Diet: HHD, NPO@MN for stress test Dispo: pending nuclear test results, cardiac cath for 8 AM tomorrow, npo after midnight Plan discussed with Dr Yeimi Gonzalez, PGY-1 <Hieu Jalloh - Last Filed: 11/22/18 07:12> Objective - Vital Signs/Intake and Output Vital Signs (last 24 hours): Temp Pulse Resp BP Pulse Ox 98.2 F 61 20 144/66 94 L 11/22/18 06:55 11/22/18 06:55 11/22/18 06:55 11/22/18 06:55 11/22/18 06:55 - Medications Medications: Current Medications Acetaminophen (Tylenol 325mg Tab) 650 mg PO Q6 PRN PRN Reason: Pain, Mild (1-3) Last Admin: 11/21/18 03:31 Dose: 650 mg Albuterol/Ipratropium (Duoneb 3 Mg/0.5 Mg (3 Ml) Ud) 3 ml INH RQ6 PRN PRN Reason: Shortness of Breath Last Admin: 11/21/18 19:27 Dose: 3 ml Alprazolam (Xanax) 1 mg PO HS [facility] Last Admin: 11/21/18 21:16 Dose: 1 mg Amlodipine Besylate (Norvasc) 10 mg PO DAILY [facility] Last Admin: 11/21/18 10:14 Dose: 10 mg Aspirin (Aspirin Chewable) 81 mg PO DAILY [facility] Last Admin: 11/21/18 10:14 Dose: 81 mg Dextrose (Dextrose 50% Inj) 0 ml IV STAT PRN; Protocol PRN Reason: Hypoglycemia Protocol Dextrose (Glutose 15) 0 gm PO ONCE PRN; Protocol PRN Reason: Hypoglycemia Protocol Docusate Sodium (Colace) 100 mg PO TID [facility] Last Admin: 11/21/18 18:16 Dose: 100 mg Famotidine (Pepcid) 20 mg PO DAILY [facility] Last Admin: 11/21/18 10:14 Dose: 20 mg Ferrous Sulfate (Feosol) 325 mg PO DAILY [facility] Last Admin: 11/21/18 10:14 Dose: 325 mg Glucagon (Glucagen Diagnostic Kit) 0 mg IM STAT PRN; Protocol PRN Reason: Hypoglycemia Protocol Heparin Sodium (Porcine) (Heparin) 5,000 units SC Q8 [facility] Last Admin: 11/22/18 06:34 Dose: Not Given Dextrose (Dextrose 5% In Water 1000 Ml) 1,000 mls @ 0 mls/hr IV .Q0M PRN; Protocol PRN Reason: Hypoglycemia Protocol Insulin Aspart (Novolog) 0 unit SC ACHS [facility]; Protocol Last Admin: 11/21/18 21:37 Dose: Not Given Losartan Potassium (Cozaar) 25 mg PO DAILY [facility] Last Admin: 11/21/18 10:14 Dose: 25 mg Rosuvastatin Calcium (Crestor) 5 mg PO HS [facility] Last Admin: 11/21/18 21:16 Dose: 5 mg - Labs Labs: 11/21/18 08:23 11/21/18 08:23 PT 11.8 SECONDS (9.7-12.2) 11/20/18 17:23 INR 1.1 11/20/18 17:23 APTT 32 SECONDS (21-34) 11/20/18 17:23 Attending/Attestation - Attestation I have personally seen and examined this patient.: Yes I have fully participated in the care of the patient.: Yes I have reviewed all pertinent clinical information, including history, physical exam and plan: Yes Notes (Text): Medical attending: Reviewed the above notes by the medical intern, and agree with the above note. The patient earlier in the day underwent stress test and then echo cardiogram. From what I understand there are plans for cardiac catherization for later as well. There is a LBB as well as ST depressions - however this is seen in a lot of old EKGs Patient's family member is also a patient in the hospital as well and we updated her. Hieu Jalloh
[2018-11-21 11:42] LABS: B-TYPE NATRIURETIC PEPTIDE 2180 pg/mL (0-900)
[2018-11-21] MEDS ORDERED: Caffeine Citrated **INJ** 20 MG/ML IV ONE (12:21)
[2018-11-21] MEDS ORDERED: (Novolog) Insulin Aspart, Recombinant 100 u/ml 10 ml vial SC SCH (12:27)
[2018-11-21] MEDS ORDERED: (Novolog) Insulin Aspart, Recombinant 100 u/ml 10 ml vial SC ONE (12:58)
--- NOTE | 2018-11-21 13:11 | CP.PCM.CON ---
"<JeannineSrinivasan - Last Filed: 11/21/18 15:17> History of Present Illness - History of Present Illness History of Present Illness: Cardiology Consult Note - Dr. Hernandez Service Ms. Curiel is a 87 year old female with PMHx of CHF, CAD s/p 2 stents, DM2, HTN, HLD, asthma and arthritis sent by Dr. Hernandez, after a routine appointment for worsening angina. Cardiology consulted for evaluation and treatment of chest pain, R/O ACS. Her angina has been worsening over the past 2-3 weeks and occurs at rest and during exertion. Resting with deep breaths resolves the pain. Associate symptoms include coughing ROS positive for chest pain, SOB, cough and mild dizziness. 12 point ROS negative unless otherwise stated PMH: CHF, CAD, DM2, HTN, HLD, asthma and arthritis Med: unknown. per chart review: Aspirin 81mg daily, Crestor 5mg po HS, Cozaar 25mg po daily, norvasc 10mg po daily, spiriva 18mcg INH daily, xanax 1mg daily, tylenol prn, ferrous sulfate 325mg daily, Colace 100mg TID PSHx cardiac cath stents - 02/2016, hysterectomy, oophorectomy, cataract surgery FamHx: Mother - asthma, heart disease, at age 92 SocialHx: Smoked 1ppd x 50 yrs, quit 20 yrs ago; social drinker in the past, denies current use. denies illicit drug use. Patient states she lives with her son All: NKDA PMD: Patricia Cardio: David Past Patient History - Infectious Disease Hx of Infectious Diseases: None - Tetanus Immunizations Tetanus Immunization: Unknown - Past Medical History & Family History Past Medical History?: Yes - Past Social History Smoking Status: Former Smoker Alcohol: None Drugs: Denies Home Situation {Lives}: With Family - CARDIAC Hx Hypercholesterolemia: Yes Hx Hypertension: Yes - PULMONARY Hx Asthma: Yes Hx Chronic Obstructive Pulmonary Disease (COPD): Yes - NEUROLOGICAL Hx Seizures: No - HEENT Hx HEENT Problems: Yes Hx Cataracts: Yes (right eye) Hx Glaucoma: Yes (left eye) - RENAL Hx Chronic Kidney Disease: No - HEMATOLOGICAL/ONCOLOGICAL Hx Anemia: Yes - INTEGUMENTARY Hx Dermatological Problems: No - MUSCULOSKELETAL/RHEUMATOLOGICAL Hx Arthritis: Yes Hx Fractures: Yes (left wrist AND RT. HIP, LEFT LEG) Hx Osteoporosis: Yes - GASTROINTESTINAL Hx Gastritis: Yes - GENITOURINARY/GYNECOLOGICAL Hx Genitourinary Disorders: No - PSYCHIATRIC Hx Anxiety: Yes Hx Substance Use: No - SURGICAL HISTORY Hx Coronary Stent: Yes - ANESTHESIA Hx Anesthesia: Yes Hx Anesthesia Reactions: No Hx Malignant Hyperthermia: No Meds Allergies/Adverse Reactions: Allergies Allergy/AdvReac Type Severity Reaction Status Date / Time No Known Allergies Allergy Verified 11/20/18 17:04 - Medications Medications: Current Medications Acetaminophen (Tylenol 325mg Tab) 650 mg PO Q6 PRN PRN Reason: Pain, Mild (1-3) Last Admin: 11/21/18 03:31 Dose: 650 mg Albuterol/Ipratropium (Duoneb 3 Mg/0.5 Mg (3 Ml) Ud) 3 ml INH RQ6 PRN PRN Reason: Shortness of Breath Alprazolam (Xanax) 1 mg PO HS [facility] Last Admin: 11/20/18 23:08 Dose: 1 mg Amlodipine Besylate (Norvasc) 10 mg PO DAILY [facility] Last Admin: 11/21/18 10:14 Dose: 10 mg Aspirin (Aspirin Chewable) 81 mg PO DAILY [facility] Last Admin: 11/21/18 10:14 Dose: 81 mg Dextrose (Dextrose 50% Inj) 0 ml IV STAT PRN; Protocol PRN Reason: Hypoglycemia Protocol Dextrose (Glutose 15) 0 gm PO ONCE PRN; Protocol PRN Reason: Hypoglycemia Protocol Docusate Sodium (Colace) 100 mg PO TID [facility] Last Admin: 11/21/18 10:15 Dose: 100 mg Famotidine (Pepcid) 20 mg PO DAILY [facility] Last Admin: 11/21/18 10:14 Dose: 20 mg Ferrous Sulfate (Feosol) 325 mg PO DAILY [facility] Last Admin: 11/21/18 10:14 Dose: 325 mg Glucagon (Glucagen Diagnostic Kit) 0 mg IM STAT PRN; Protocol PRN Reason: Hypoglycemia Protocol Heparin Sodium (Porcine) (Heparin) 5,000 units SC Q8 [facility] Last Admin: 11/21/18 05:51 Dose: 5,000 units Dextrose (Dextrose 5% In Water 1000 Ml) 1,000 mls @ 0 mls/hr IV .Q0M PRN; Protocol PRN Reason: Hypoglycemia Protocol Insulin Aspart (Novolog) 0 unit SC ACHS [facility]; Protocol Losartan Potassium (Cozaar) 25 mg PO DAILY [facility] Last Admin: 11/21/18 10:14 Dose: 25 mg Rosuvastatin Calcium (Crestor) 5 mg PO HS [facility] Last Admin: 11/20/18 23:08 Dose: 5 mg Physical Exam - Constitutional Appears: Non-toxic, No Acute Distress - Head Exam Head Exam: ATRAUMATIC, NORMOCEPHALIC - Eye Exam Eye Exam: EOMI, Normal appearance - ENT Exam ENT Exam: Mucous Membranes Moist - Neck Exam Neck exam: Positive for: Normal Inspection - Respiratory Exam Respiratory Exam: Clear to Auscultation Bilateral, NORMAL BREATHING PATTERN. absent: Accessory Muscle Use - Cardiovascular Exam Cardiovascular Exam: Irregular Rhythm, +S1, +S2 - GI/Abdominal Exam GI & Abdominal Exam: Soft. absent: Tenderness - Extremities Exam Extremities exam: Positive for: pedal edema (+1), tenderness - Neurological Exam Neurological exam: Alert, Oriented x3 - Psychiatric Exam Psychiatric exam: Normal Affect, Normal Mood Results - Vital Signs Recent Vital Signs: Last Vital Signs Temp 97.9 F 11/21/18 07:00 Pulse 64 11/21/18 10:21 Resp 16 11/21/18 10:21 BP 153/68 H 11/21/18 10:21 Pulse Ox 96 11/21/18 10:21 - Labs Result Diagrams: 11/21/18 08:23 11/21/18 08:23 Labs: Laboratory Results - last 24 hr 11/20/18 11/20/18 11/20/18 17:23 17:23 17:23 WBC 5.7 RBC 3.88 Hgb 11.4 Hct 34.7 MCV 89.5 MCH 29.5 MCHC 33.0 RDW 14.5 Plt Count 230 MPV 8.6 Neut % (Auto) 55.0 Lymph % (Auto) 29.9 [place] % (Auto) 9.7 Eos % (Auto) 4.5 H Baso % (Auto) 0.9 Neut # (Auto) 3.1 Lymph # (Auto) 1.7 [place] # (Auto) 0.6 Eos # (Auto) 0.3 Baso # (Auto) 0.1 PT 11.8 INR 1.1 APTT 32 Sodium 137 Potassium 4.6 Chloride 104 Carbon Dioxide 29 Anion Gap 9 L BUN 30 H Creatinine 1.0 Est GFR ( Amer) > 60 Est GFR (Non-Af Amer) 52 POC Glucose (mg/dL) Random Glucose 297 H D Hemoglobin A1c Calcium 8.9 Magnesium Total Bilirubin 0.5 AST 48 H D ALT 25 Alkaline Phosphatase 65 Total Creatine Kinase 410 H CK-MB (Mass) 3.79 H Troponin I < 0.0120 NT-Pro-B Natriuret Pep Total Protein 6.5 Albumin 3.9 Globulin 2.6 Albumin/Globulin Ratio 1.5 11/20/18 11/20/18 11/21/18 21:32 23:25 06:20 WBC RBC Hgb Hct MCV MCH MCHC RDW Plt Count MPV Neut % (Auto) Lymph % (Auto) [place] % (Auto) Eos % (Auto) Baso % (Auto) Neut # (Auto) Lymph # (Auto) [place] # (Auto) Eos # (Auto) Baso # (Auto) PT INR APTT Sodium Potassium Chloride Carbon Dioxide Anion Gap BUN Creatinine Est GFR ( Amer) Est GFR (Non-Af Amer) POC Glucose (mg/dL) 258 H 313 H Random Glucose Hemoglobin A1c Calcium Magnesium Total Bilirubin AST ALT Alkaline Phosphatase Total Creatine Kinase 342 H CK-MB (Mass) 2.92 Troponin I < 0.0120 NT-Pro-B Natriuret Pep Total Protein Albumin Globulin Albumin/Globulin Ratio 11/21/18 11/21/18 11/21/18 08:23 08:23 08:23 WBC 5.4 RBC 3.89 Hgb 11.8 Hct 34.7 MCV 89.0 MCH 30.2 MCHC 34.0 RDW 14.1 Plt Count 230 MPV 9.4 Neut % (Auto) 83.7 H Lymph % (Auto) 14.4 L [place] % (Auto) 1.7 Eos % (Auto) 0.0 Baso % (Auto) 0.2 Neut # (Auto) 4.5 Lymph # (Auto) 0.8 L [place] # (Auto) 0.1 Eos # (Auto) 0.0 Baso # (Auto) 0.0 PT INR APTT Sodium 137 Potassium 4.5 Chloride 103 Carbon Dioxide 26 Anion Gap 12 BUN 33 H Creatinine 1.2 Est GFR ( Amer) 51 Est GFR (Non-Af Amer) 42 POC Glucose (mg/dL) Random Glucose 319 H Hemoglobin A1c 7.7 H Calcium 9.0 Magnesium 2.0 Total Bilirubin 0.3 AST 38 H D ALT 26 Alkaline Phosphatase 81 Total Creatine Kinase CK-MB (Mass) Troponin I NT-Pro-B Natriuret Pep Total Protein 6.7 Albumin 4.0 Globulin 2.6 Albumin/Globulin Ratio 1.5 11/21/18 08:23 WBC RBC Hgb Hct MCV MCH MCHC RDW Plt Count MPV Neut % (Auto) Lymph % (Auto) [place] % (Auto) Eos % (Auto) Baso % (Auto) Neut # (Auto) Lymph # (Auto) [place] # (Auto) Eos # (Auto) Baso # (Auto) PT INR APTT Sodium Potassium Chloride Carbon Dioxide Anion Gap BUN Creatinine Est GFR ( Amer) Est GFR (Non-Af Amer) POC Glucose (mg/dL) Random Glucose Hemoglobin A1c Calcium Magnesium Total Bilirubin AST ALT Alkaline Phosphatase Total Creatine Kinase 242 H CK-MB (Mass) 1.94 Troponin I < 0.0120 NT-Pro-B Natriuret Pep 2180 H Total Protein Albumin Globulin Albumin/Globulin Ratio Assessment & Plan - Assessment and Plan (Free Text) Assessment: 87 year old female with PMHx of CHF, CAD s/p 2 stents, DM2, HTN, HLD, asthma and arthritis sent by Dr. Hernandez, after a routine appointment for worsening angina. Cardiology consulted for evaluation and treatment of chest pain, R/O ACS. Plan: Chest Pain, R/O ACS CAD s/p 2 stents HFpEF | Hypertension EKG:(Admission) NSR@63, LBBB CXR (11/20): NEGATIVE Troponins NEGATIVE x 3 ECHO (01/08/18): LVEF 65-70%, diastolic dysfunction ECHO (11/21/18): Will review. Stress Test: Exercise Stress Test unreadable due to LBBB. Nuclear Stress test to be completed tonight. Mgmt: ASA 81mg po daily Crestor 5mg po HS Cozaar 25mg po daily Norvasc 10mg po daily Dispo: Cardiac Cath for 8AM tomorrow. NPO after midnight. Patient seen and discussed with Dr. Hernandez. Srinivasan Paez, PGY-2 <Andrew Hernandez - Last Filed: 11/21/18 20:09> Meds - Medications Medications: Current Medications Acetaminophen (Tylenol 325mg Tab) 650 mg PO Q6 PRN PRN Reason: Pain, Mild (1-3) Last Admin: 11/21/18 03:31 Dose: 650 mg Albuterol/Ipratropium (Duoneb 3 Mg/0.5 Mg (3 Ml) Ud) 3 ml INH RQ6 PRN PRN Reason: Shortness of Breath Last Admin: 11/21/18 19:27 Dose: 3 ml Alprazolam (Xanax) 1 mg PO HS [facility] Last Admin: 11/20/18 23:08 Dose: 1 mg Amlodipine Besylate (Norvasc) 10 mg PO DAILY [facility] Last Admin: 11/21/18 10:14 Dose: 10 mg Aspirin (Aspirin Chewable) 81 mg PO DAILY [facility] Last Admin: 11/21/18 10:14 Dose: 81 mg Dextrose (Dextrose 50% Inj) 0 ml IV STAT PRN; Protocol PRN Reason: Hypoglycemia Protocol Dextrose (Glutose 15) 0 gm PO ONCE PRN; Protocol PRN Reason: Hypoglycemia Protocol Docusate Sodium (Colace) 100 mg PO TID [facility] Last Admin: 11/21/18 18:16 Dose: 100 mg Famotidine (Pepcid) 20 mg PO DAILY [facility] Last Admin: 11/21/18 10:14 Dose: 20 mg Ferrous Sulfate (Feosol) 325 mg PO DAILY [facility] Last Admin: 11/21/18 10:14 Dose: 325 mg Glucagon (Glucagen Diagnostic Kit) 0 mg IM STAT PRN; Protocol PRN Reason: Hypoglycemia Protocol Heparin Sodium (Porcine) (Heparin) 5,000 units SC Q8 [facility] Last Admin: 11/21/18 13:08 Dose: 5,000 units Dextrose (Dextrose 5% In Water 1000 Ml) 1,000 mls @ 0 mls/hr IV .Q0M PRN; P rotocol PRN Reason: Hypoglycemia Protocol Insulin Aspart (Novolog) 0 unit SC ACHS [facility]; Protocol Losartan Potassium (Cozaar) 25 mg PO DAILY [facility] Last Admin: 11/21/18 10:14 Dose: 25 mg Rosuvastatin Calcium (Crestor) 5 mg PO HS [facility] Last Admin: 11/20/18 23:08 Dose: 5 mg Results - Vital Signs Recent Vital Signs: Last Vital Signs Temp 98 F 11/21/18 15:00 Pulse 87 11/21/18 16:00 Resp 20 11/21/18 15:00 BP 141/54 L 11/21/18 15:00 Pulse Ox 99 11/21/18 15:00 - Labs Result Diagrams: 11/21/18 08:23 11/21/18 08:23 Labs: Laboratory Results - last 24 hr 11/20/18 11/20/18 11/21/18 21:32 23:25 06:20 WBC RBC Hgb Hct MCV MCH MCHC RDW Plt Count MPV Neut % (Auto) Lymph % (Auto) [place] % (Auto) Eos % (Auto) Baso % (Auto) Neut # (Auto) Lymph # (Auto) [place] # (Auto) Eos # (Auto) Baso # (Auto) Sodium Potassium Chloride Carbon Dioxide Anion Gap BUN Creatinine Est GFR ( Amer) Est GFR (Non-Af Amer) POC Glucose (mg/dL) 258 H 313 H Random Glucose Hemoglobin A1c Calcium Magnesium Total Bilirubin AST ALT Alkaline Phosphatase Total Creatine Kinase 342 H CK-MB (Mass) 2.92 Troponin I < 0.0120 NT-Pro-B Natriuret Pep Total Protein Albumin Globulin Albumin/Globulin Ratio 11/21/18 11/21/18 11/21/18 08:23 08:23 08:23 WBC 5.4 RBC 3.89 Hgb 11.8 Hct 34.7 MCV 89.0 MCH 30.2 MCHC 34.0 RDW 14.1 Plt Count 230 MPV 9.4 Neut % (Auto) 83.7 H Lymph % (Auto) 14.4 L [place] % (Auto) 1.7 Eos % (Auto) 0.0 Baso % (Auto) 0.2 Neut # (Auto) 4.5 Lymph # (Auto) 0.8 L [place] # (Auto) 0.1 Eos # (Auto) 0.0 Baso # (Auto) 0.0 Sodium 137 Potassium 4.5 Chloride 103 Carbon Dioxide 26 Anion Gap 12 BUN 33 H Creatinine 1.2 Est GFR ( Amer) 51 Est GFR (Non-Af Amer) 42 POC Glucose (mg/dL) Random Glucose 319 H Hemoglobin A1c 7.7 H Calcium 9.0 Magnesium 2.0 Total Bilirubin 0.3 AST 38 H D ALT 26 Alkaline Phosphatase 81 Total Creatine Kinase CK-MB (Mass) Troponin I NT-Pro-B Natriuret Pep Total Protein 6.7 Albumin 4.0 Globulin 2.6 Albumin/Globulin Ratio 1.5 11/21/18 08:23 WBC RBC Hgb Hct MCV MCH MCHC RDW Plt Count MPV Neut % (Auto) Lymph % (Auto) [place] % (Auto) Eos % (Auto) Baso % (Auto) Neut # (Auto) Lymph # (Auto) [place] # (Auto) Eos # (Auto) Baso # (Auto) Sodium Potassium Chloride Carbon Dioxide Anion Gap BUN Creatinine Est GFR ( Amer) Est GFR (Non-Af Amer) POC Glucose (mg/dL) Random Glucose Hemoglobin A1c Calcium Magnesium Total Bilirubin AST ALT Alkaline Phosphatase Total Creatine Kinase 242 H CK-MB (Mass) 1.94 Troponin I < 0.0120 NT-Pro-B Natriuret Pep 2180 H Total Protein Albumin Globulin Albumin/Globulin Ratio Assessment & Plan - Assessment and Plan (Free Text) Plan: Patient seen and evaluated personally by me. Plan of care d/w the medical billing manager and as documented"
--- NOTE | 2018-11-21 16:26 | RAD ---
Date of service: 11/20/2018 HISTORY: chest pain COMPARISON: 10/01/2018 TECHNIQUE: 1 view obtained. FINDINGS: LUNGS: No interval consolidation. Similar chronic fibrotic scarring right lung apex. Concomitant biapical pleural thickening suggested. PLEURA: No significant pleural effusion identified, no pneumothorax apparent. CARDIOVASCULAR: There is presence of aortic atherosclerotic calcification on x-ray. Tortuous ectatic thoracic aorta accentuated with current rightward rotation. Cardiomegaly-similar. No significant appearing pulmonary venous congestion. OSSEOUS STRUCTURES: No significant abnormalities. VISUALIZED UPPER ABDOMEN: Normal. OTHER FINDINGS: None. IMPRESSION: No acute cardiopulmonary interval pathology noted. Chronic scarring right lung apex. Other findings as above.
[2018-11-21] MEDS: Albuterol-Ipratrop 3 mg / 0.5 (3 ml) UD INH PRN (19:27)
--- NOTE | 2018-11-21 23:31 | CARD ---
APPROVED REPORT Date of service: 11/21/2018 EXAM: Two-dimensional and M-mode echocardiogram with Doppler and color Doppler. Other Information Quality : GoodRhythm : INDICATION Chest Pain RISK FACTORS Hypertension 2D DIMENSIONS IVSd1.1 (0.7-1.1cm)LVDd4.2 (3.9-5.9cm) PWd1.1 (0.7-1.1cm)LA Urdoou29 (18-58mL) LVDs2.9 (2.5-4.0cm)FS (%) 31.8 % LVEF (%)60.3 (>50%)LVEF (Garza's)61.27 % M-Mode DIMENSIONS Left Atrium (MM)3.85 (2.5-4.0cm)Aortic Root3.32 (2.2-3.7cm) Aortic Cusp Exc.1.73 (1.5-2.0cm) Mitral Valve MV E Fxmsrvel86.6cm/sMV A Vfxgoqev704.4cm/sE/A ratio0.6 TDI Lateral E' Peak V6.22cm/sMedial E' Peak V4.41cm/sE/Lateral E'11.0 E/Medial E'15.6 Tricuspid Valve TR Peak Dofymnwt658cd/sTR Peak Gr.60wcQdXLBJ04bxPo LEFT VENTRICLE The left ventricle is normal size. There is moderate concentric left ventricular hypertrophy.s. The left ventricular function is normal. The left ventricular ejection fraction is within the normal range. 61% No regional wall motion abnormalities noted. Transmitral Doppler flow pattern is Grade I-abnormal relaxation pattern. No left ventricle thrombus noted on this study. There is no ventricular septal defect visualized. There is no left ventricular aneurysm. There is no mass noted in the left ventricle. RIGHT VENTRICLE The right ventricle is normal size. There is normal right ventricular wall thickness. The right ventricular systolic function is normal. ATRIA The left atrium size is volume index is modertely increased. The right atrium size is normal. Color Doppler suggests a patent foramen ovale. AORTIC VALVE The aortic valve is trileaflet and demonstrates borderline low normal valve opening. No aortic regurgitation is present. There is no aortic valvular stenosis. There is no aortic valvular vegetation. MITRAL VALVE The mitral valve openis well, with mildly increased leaflet thickness. There is no evidence of mitral valve prolapse. There is no mitral valve stenosis. There is trace mitral valve regurgitation noted. TRICUSPID VALVE The tricuspid valve is normal in structure and function. There is no tricuspid valve regurgitation noted. There is mild tricuspid valve prolapse or vegetation. There is no tricuspid valve stenosis. PULMONIC VALVE The pulmonary valve is normal in structure and function. There is no pulmonic valvular regurgitation. There is no pulmonic valvular stenosis. GREAT VESSELS The aortic root is normal in size. The ascending aorta is normal in size. The pulmonary artery is normal. The IVC is normal in size and collapses >50% with inspiration. PERICARDIAL EFFUSION The pericardium appears normal. There is no pleural effusion. <Conclusion> The left ventricular function is normal. There is moderate concentric left ventricular hypertrophy. Transmitral Doppler flow pattern is Grade I-abnormal relaxation pattern. The left atrium size is volume index is modertely increased. The aortic valve is trileaflet and demonstrates borderline low normal valve opening. The mitral valve openis well, with mildly increased leaflet thickness. Color Doppler suggests a patent foramen ovale. Otherwise normal Dopplere.
--- NOTE | 2018-11-21 23:56 | CARD ---
APPROVED REPORT Date of service: 11/20/2018 EKG Measurement Heart [id number] <Conclusion> Normal sinus rhythm Left bundle branch block Abnormal ECG
--- NOTE | 2018-11-22 07:13 | CP.PCM.PN ---
<Praveen Gonzalez - Last Filed: 11/22/18 20:54> Subjective - Date & Time of Evaluation Date of Evaluation: 11/22/18 Time of Evaluation: 07:13 - Subjective Subjective: PGY-[address] Hieu Jalloh Patient seen and examined at bedside, patient underwent cardiac cath this morning, patient is drowsy after procedure, admits to headaches, denies fever, chills, chest pain, sob, n/v. Objective - Vital Signs/Intake and Output Vital Signs (last 24 hours): Temp Pulse Resp BP Pulse Ox 98.2 F 61 20 144/66 94 L 11/22/18 06:55 11/22/18 06:55 11/22/18 06:55 11/22/18 06:55 11/22/18 06:55 - Medications Medications: Current Medications Acetaminophen (Tylenol 325mg Tab) 650 mg PO Q6 PRN PRN Reason: Pain, Mild (1-3) Last Admin: 11/21/18 03:31 Dose: 650 mg Albuterol/Ipratropium (Duoneb 3 Mg/0.5 Mg (3 Ml) Ud) 3 ml INH RQ6 PRN PRN Reason: Shortness of Breath Last Admin: 11/21/18 19:27 Dose: 3 ml Alprazolam (Xanax) 1 mg PO HS [facility] Last Admin: 11/21/18 21:16 Dose: 1 mg Amlodipine Besylate (Norvasc) 10 mg PO DAILY [facility] Last Admin: 11/21/18 10:14 Dose: 10 mg Aspirin (Aspirin Chewable) 81 mg PO DAILY [facility] Last Admin: 11/21/18 10:14 Dose: 81 mg Dextrose (Dextrose 50% Inj) 0 ml IV STAT PRN; Protocol PRN Reason: Hypoglycemia Protocol Dextrose (Glutose 15) 0 gm PO ONCE PRN; Protocol PRN Reason: Hypoglycemia Protocol Docusate Sodium (Colace) 100 mg PO TID [facility] Last Admin: 11/21/18 18:16 Dose: 100 mg Famotidine (Pepcid) 20 mg PO DAILY [facility] Last Admin: 11/21/18 10:14 Dose: 20 mg Ferrous Sulfate (Feosol) 325 mg PO DAILY [facility] Last Admin: 11/21/18 10:14 Dose: 325 mg Glucagon (Glucagen Diagnostic Kit) 0 mg IM STAT PRN; Protocol PRN Reason: Hypoglycemia Protocol Heparin Sodium (Porcine) (Heparin) 5,000 units SC Q8 [facility] Last Admin: 11/22/18 06:34 Dose: Not Given Dextrose (Dextrose 5% In Water 1000 Ml) 1,000 mls @ 0 mls/hr IV .Q0M PRN; Protocol PRN Reason: Hypoglycemia Protocol Insulin Aspart (Novolog) 0 unit SC ACHS [facility]; Protocol Last Admin: 11/21/18 21:37 Dose: Not Given Losartan Potassium (Cozaar) 25 mg PO DAILY [facility] Last Admin: 11/21/18 10:14 Dose: 25 mg Rosuvastatin Calcium (Crestor) 5 mg PO HS [facility] Last Admin: 11/21/18 21:16 Dose: 5 mg - Labs Labs: 11/21/18 08:23 11/21/18 08:23 PT 11.8 SECONDS (9.7-12.2) 11/20/18 17:23 INR 1.1 11/20/18 17:23 APTT 32 SECONDS (21-34) 11/20/18 17:23 - Constitutional Appears: Non-toxic, No Acute Distress - Head Exam Head Exam: ATRAUMATIC, NORMOCEPHALIC - Eye Exam Eye Exam: EOMI, Normal appearance - ENT Exam ENT Exam: Mucous Membranes Moist Additional comments: hard of hearing - Respiratory Exam Respiratory Exam: Clear to Ausculation Bilateral, NORMAL BREATHING PATTERN - Cardiovascular Exam Cardiovascular Exam: +S1, +S2 - GI/Abdominal Exam GI & Abdominal Exam: Soft, Normal Bowel Sounds. absent: Distended, Tenderness - Back Exam Back Exam: NORMAL INSPECTION - Neurological Exam Neurological Exam: Alert, Awake - Psychiatric Exam Psychiatric exam: Normal Affect, Normal Mood - Skin Skin Exam: Dry, Normal Color, Warm Assessment and Plan - Assessment and Plan (Free Text) Assessment: 87yo F with PMH DM, HTN, HLD, CAD s/p coronary stent, CHF, COPD, asthma, anemia, anxiety and arthritis sent in by larder cook, Dr. Hernandez, for unstable angina Plan: Unstable Angina On Telemetry floor Duonebs x1, Maalox 30mL PO x1, ASA 325mg PO x1, Mag Citrate 300mL PO x1, Solumedrol 125mg IVP given in ED EKG: NSR@63, LBBB - previous EKG remarkable for LBBB CXR (11/20): No acute cardiopulmonary interval pathology noted. Chronic scarring right lung apex, no significant pleural effusion identified, no pneumothorax, aortic athersclerotic calcification on xray Echo (01/08/18): LVEF 65-70%, diastolic dysfunction Echo 11/21/18 - pending results - Trop neg x3 - Tylenol 650mg po q6 prn - Nuclear test done today - f/u official results - Cardio consulted: Dr. Hernandez - help appreciated - Cardiac cath shows non obstructive coronaries, EF 50%, continue medical management Diastolic CHF, chronic CAD s/p coronary stent Last ECHO 01/08/18: LVEF 65-70%, diastolic dysfunction Cardiac cath in 2016 with 2 stents placed - home ASA 81mg po daily - home Crestor 5mg po HS - Cardio on case: Dr. Hernandez - nuclear stress test. Hypertension - home Cozaar 25mg po daily - home Norvasc 10mg po daily - monitor vitals Diabetes Mellitus Last Hgb A1c 01/09/18: 7.1 - f/u Hgb A1c - 7.7 - Accuchecks ACHS -> q6 - ISS, low - hypoglycemia protocol Hyperlipidemia Last lipid panel 02/11/18: TG 66 Chol 107 LDL 41 HDL 46 - home Crestor 5mg po HS COPD - home Spiriva 18mcg INH daily Anxiety - home Xanax 1mg po HS Arthritis - home Tylenol 650mg po prn Anemia - home Ferrous sulfate 325mg po daily - monitor with AM labs PPx - DVT: Heparni 5000u SC q8, SCDs - GI: home Colace 100mg po TID - Diet: HHD, NPO@MN for stress test - PT/OT - follow up recs Dispo: pending physical therapy recommendation for [facility] vs home PT Plan discussed with Dr Yeimi Gonzalez, PGY-1 <Hieu Jalloh - Last Filed: 11/23/18 08:13> Objective - Vital Signs/Intake and Output Vital Signs (last 24 hours): Temp Pulse Resp BP Pulse Ox 97.8 F 61 20 128/68 98 11/23/18 07:00 11/23/18 07:00 11/23/18 07:00 11/23/18 07:00 11/23/18 07:00 - Medications Medications: Current Medications Acetaminophen (Tylenol 325mg Tab) 650 mg PO Q6 PRN PRN Reason: Pain, Mild (1-3) Last Admin: 11/22/18 20:33 Dose: 650 mg Albuterol/Ipratropium (Duoneb 3 Mg/0.5 Mg (3 Ml) Ud) 3 ml INH RQ6 PRN PRN Reason: Shortness of Breath Last Admin: 11/22/18 14:14 Dose: 3 ml Alprazolam (Xanax) 1 mg PO HS [facility] Last Admin: 11/22/18 21:10 Dose: 1 mg Amlodipine Besylate (Norvasc) 10 mg PO DAILY [facility] Last Admin: 11/22/18 11:34 Dose: 10 mg Aspirin (Aspirin Chewable) 81 mg PO DAILY [facility] Last Admin: 11/22/18 11:33 Dose: 81 mg Dextrose (Dextrose 50% Inj) 0 ml IV STAT PRN; Protocol PRN Reason: Hypoglycemia Protocol Dextrose (Glutose 15) 0 gm PO ONCE PRN; Protocol PRN Reason: Hypoglycemia Protocol Docusate Sodium (Colace) 100 mg PO TID [facility] Last Admin: 11/22/18 16:59 Dose: 100 mg Famotidine (Pepcid) 20 mg PO DAILY [facility] Last Admin: 11/22/18 11:33 Dose: 20 mg Ferrous Sulfate (Feosol) 325 mg PO DAILY [facility] Last Admin: 11/22/18 11:32 Dose: 325 mg Glucagon (Glucagen Diagnostic Kit) 0 mg IM STAT PRN; Protocol PRN Reason: Hypoglycemia Protocol Heparin Sodium (Porcine) (Heparin) 5,000 units SC Q8 [facility] Last Admin: 11/23/18 06:03 Dose: 5,000 units Dextrose (Dextrose 5% In Water 1000 Ml) 1,000 mls @ 0 mls/hr IV .Q0M PRN; Protocol PRN Reason: Hypoglycemia Protocol Insulin Aspart (Novolog) 0 unit SC ACHS [facility]; Protocol Last Admin: 11/22/18 21:47 Dose: Not Given Losartan Potassium (Cozaar) 25 mg PO DAILY [facility] Last Admin: 11/22/18 11:33 Dose: 25 mg Rosuvastatin Calcium (Crestor) 5 mg PO HS [facility] Last Admin: 11/22/18 21:10 Dose: 5 mg - Labs Labs: 11/21/18 08:23 11/21/18 08:23 PT 11.8 SECONDS (9.7-12.2) 11/20/18 17:23 INR 1.1 11/20/18 17:23 APTT 32 SECONDS (21-34) 11/20/18 17:23 Attending/Attestation - Attestation I have personally seen and examined this patient.: Yes I have fully participated in the care of the patient.: Yes I have reviewed all pertinent clinical information, including history, physical exam and plan: Yes Notes (Text): Medical attending: Patient was seen and examined by me. Reviewed the above note by the resident and agree with the above note The patient had returned from the cardiac catherization and per my understanding did not require intervention. We will continue with medical management at this time with ASA, Statin, BP medications. As mentioned above the patient has underwent Echo and Stress test as well The patient appears very weak and kavita will need to go to [facility] At this time the PT services have been trying to evaluate her however she has al ways been away at a test and so every time they have been comming she has been away Hieu Jalloh 11/23/18 08:13
[2018-11-22] MEDS ORDERED: Iodixanol 320 MG/ML 100 ML BOTTLE IV ONE (08:17)
[2018-11-22] MEDS ORDERED: Lidocaine 2% MPF (5 ml) Inj ONE (08:46)
[2018-11-22] MEDS ORDERED: Midazolam 2 MG/2 ML VIAL ONE (08:48)
[2018-11-22] MEDS: (Novolog) Insulin Aspart, Recombinant 100 u/ml 10 ml vial SC SCH ×4 (08:55→21:47)
--- NOTE | 2018-11-22 09:43 | CP.PCM.PN ---
Subjective - Date & Time of Evaluation Date of Evaluation: 11/22/18 Time of Evaluation: 09:40 - Subjective Subjective: Patient s/p cath Non Obstructive Coronaries EF 50% Medical management Objective - Vital Signs/Intake and Output Vital Signs (last 24 hours): Temp Pulse Resp BP Pulse Ox 98.2 F 58 L 20 144/66 95 11/22/18 07:00 11/22/18 07:15 11/22/18 07:00 11/22/18 07:00 11/22/18 07:00 - Medications Medications: Current Medications Acetaminophen (Tylenol 325mg Tab) 650 mg PO Q6 PRN PRN Reason: Pain, Mild (1-3) Last Admin: 11/21/18 03:31 Dose: 650 mg Albuterol/Ipratropium (Duoneb 3 Mg/0.5 Mg (3 Ml) Ud) 3 ml INH RQ6 PRN PRN Reason: Shortness of Breath Last Admin: 11/21/18 19:27 Dose: 3 ml Alprazolam (Xanax) 1 mg PO HS [facility] Last Admin: 11/21/18 21:16 Dose: 1 mg Amlodipine Besylate (Norvasc) 10 mg PO DAILY [facility] Last Admin: 11/21/18 10:14 Dose: 10 mg Aspirin (Aspirin Chewable) 81 mg PO DAILY [facility] Last Admin: 11/21/18 10:14 Dose: 81 mg Dextrose (Dextrose 50% Inj) 0 ml IV STAT PRN; Protocol PRN Reason: Hypoglycemia Protocol Dextrose (Glutose 15) 0 gm PO ONCE PRN; Protocol PRN Reason: Hypoglycemia Protocol Docusate Sodium (Colace) 100 mg PO TID [facility] Last Admin: 11/21/18 18:16 Dose: 100 mg Famotidine (Pepcid) 20 mg PO DAILY [facility] Last Admin: 11/21/18 10:14 Dose: 20 mg Ferrous Sulfate (Feosol) 325 mg PO DAILY [facility] Last Admin: 11/21/18 10:14 Dose: 325 mg Glucagon (Glucagen Diagnostic Kit) 0 mg IM STAT PRN; Protocol PRN Reason: Hypoglycemia Protocol Heparin Sodium (Porcine) (Heparin) 5,000 units SC Q8 [facility] Last Admin: 11/22/18 06:34 Dose: Not Given Dextrose (Dextrose 5% In Water 1000 Ml) 1,000 mls @ 0 mls/hr IV .Q0M PRN; Protocol PRN Reason: Hypoglycemia Protocol Insulin Aspart (Novolog) 0 unit SC ACHS [facility]; Protocol Last Admin: 11/22/18 08:55 Dose: Not Given Losartan Potassium (Cozaar) 25 mg PO DAILY [facility] Last Admin: 11/21/18 10:14 Dose: 25 mg Rosuvastatin Calcium (Crestor) 5 mg PO HS [facility] Last Admin: 11/21/18 21:16 Dose: 5 mg - Labs Labs: 11/21/18 08:23 11/21/18 08:23 PT 11.8 SECONDS (9.7-12.2) 11/20/18 17:23 INR 1.1 11/20/18 17:23 APTT 32 SECONDS (21-34) 11/20/18 17:23
[2018-11-22] MEDS ORDERED: Sodium Chloride 0.9% 1,000 ML IV SCH ×2 (10:30→13:47)
[2018-11-22] MEDS: Albuterol-Ipratrop 3 mg / 0.5 (3 ml) UD INH PRN (14:14)
[2018-11-23] MEDS ORDERED: Simethicone 80 mg Chewtab PO ONE (03:20)
[2018-11-23] MEDS: (Novolog) Insulin Aspart, Recombinant 100 u/ml 10 ml vial SC SCH ×4 (08:00→21:27)
[2018-11-23 08:29] LABS: BASO % 0.4 % (0.0-2.0); EOS # 0.4 K/uL (0.0-0.7); EOS % 4.7 % (0.0-4.0); HEMOGLOBIN 10.9 g/dL (11.0-16.0); LYMPH # 2.3 K/uL (1.0-4.3); MEAN CORPUSCULAR HEMOGLOBIN 30.4 pg (27.0-31.0); MEAN CORPUSCULAR HGB CONC 33.7 g/dL (33.0-37.0); MONO # 0.8 K/uL (0.0-0.8); MONO % 9.9 % (0.0-10.0); NEUT # 4.4 K/uL (1.8-7.0); RBC 3.6 Mil/uL (3.80-5.20); RED CELL DISTRIBUTION WIDTH 14.4 % (11.5-14.5); WHITE BLOOD COUNT 7.9 K/uL (4.8-10.8)
[2018-11-23 08:57] LABS: ALB/GLOB RATIO 1.4 (1.0-2.1); ALBUMIN 3.3 g/dL (3.5-5.0); CALCIUM 8.6 mg/dl (8.6-10.4)
[2018-11-23] MEDS: Albuterol-Ipratrop 3 mg / 0.5 (3 ml) UD INH PRN ×2 (09:22→20:03)
--- NOTE | 2018-11-23 11:22 | CP.PCM.PN ---
Subjective - Date & Time of Evaluation Date of Evaluation: 11/23/18 Time of Evaluation: 11:00 - Subjective Subjective: Patient was seen and examined by me earlier this morning She was getting a nebulizer treatment Yesterday she underwent cardiac catherization and did not require stenting. This morning she continues to report weakness, chest pain, fatigue, and poor appettite. The patient only took 25% of her meals and needs a lot of assistance going to bathroom per nursing staff PT has been trying to see her however each time they came by these past few days she is always at a test Likely patient will need [facility] I had a long discussion with the patient's daughter (whom is also hospitalized in room 652) and the daughter explains the past few months her mother has been eating less and less and is often refusing food at home. Objective - Vital Signs/Intake and Output Vital Signs (last 24 hours): Temp Pulse Resp BP Pulse Ox 97.8 F 58 L 20 128/68 98 11/23/18 07:00 11/23/18 07:45 11/23/18 07:00 11/23/18 07:00 11/23/18 07:15 - Medications Medications: Current Medications Acetaminophen (Tylenol 325mg Tab) 650 mg PO Q6 PRN PRN Reason: Pain, Mild (1-3) Last Admin: 11/22/18 20:33 Dose: 650 mg Albuterol/Ipratropium (Duoneb 3 Mg/0.5 Mg (3 Ml) Ud) 3 ml INH RQ6 PRN PRN Reason: Shortness of Breath Last Admin: 11/23/18 09:22 Dose: 3 ml Alprazolam (Xanax) 1 mg PO HS [facility] Last Admin: 11/22/18 21:10 Dose: 1 mg Amlodipine Besylate (Norvasc) 10 mg PO DAILY [facility] Last Admin: 11/23/18 09:33 Dose: 10 mg Aspirin (Aspirin Chewable) 81 mg PO DAILY [facility] Last Admin: 11/23/18 09:33 Dose: 81 mg Dextrose (Dextrose 50% Inj) 0 ml IV STAT PRN; Protocol PRN Reason: Hypoglycemia Protocol Dextrose (Glutose 15) 0 gm PO ONCE PRN; Protocol PRN Reason: Hypoglycemia Protocol Docusate Sodium (Colace) 100 mg PO TID [facility] Last Admin: 11/23/18 09:33 Dose: 100 mg Famotidine (Pepcid) 20 mg PO DAILY [facility] Last Admin: 11/23/18 09:33 Dose: 20 mg Ferrous Sulfate (Feosol) 325 mg PO DAILY [facility] Last Admin: 11/23/18 09:33 Dose: 325 mg Glucagon (Glucagen Diagnostic Kit) 0 mg IM STAT PRN; Protocol PRN Reason: Hypoglycemia Protocol Heparin Sodium (Porcine) (Heparin) 5,000 units SC Q8 [facility] Last Admin: 11/23/18 06:03 Dose: 5,000 units Dextrose (Dextrose 5% In Water 1000 Ml) 1,000 mls @ 0 mls/hr IV .Q0M PRN; Bekah col PRN Reason: Hypoglycemia Protocol Insulin Aspart (Novolog) 0 unit SC ACHS [facility]; Protocol Last Admin: 11/23/18 08:00 Dose: 2 units Losartan Potassium (Cozaar) 25 mg PO DAILY [facility] Last Admin: 11/23/18 09:33 Dose: 25 mg Rosuvastatin Calcium (Crestor) 5 mg PO HS [facility] Last Admin: 11/22/18 21:10 Dose: 5 mg - Labs Labs: 11/23/18 08:21 11/23/18 08:21 PT 11.8 SECONDS (9.7-12.2) 11/20/18 17:23 INR 1.1 11/20/18 17:23 APTT 32 SECONDS (21-34) 11/20/18 17:23 - Constitutional Appears: No Acute Distress, Older Than Stated Age, Confused, Cachectic, Chronically Ill - Head Exam Head Exam: NORMAL INSPECTION - Eye Exam Eye Exam: EOMI - ENT Exam ENT Exam: Mucous Membranes Moist - Respiratory Exam Respiratory Exam: Clear to Ausculation Bilateral, NORMAL BREATHING PATTERN - Cardiovascular Exam Cardiovascular Exam: REGULAR RHYTHM - GI/Abdominal Exam GI & Abdominal Exam: Soft, Normal Bowel Sounds - Neurological Exam Neurological Exam: Abnormal Gait, Alert, Altered, Awake. absent: Normal Gait - Psychiatric Exam Psychiatric exam: Depressed, Flat Affect - Skin Skin Exam: Pallor, Warm Assessment and Plan - Assessment and Plan (Free Text) Assessment: - Assessment and Plan (Free Text) Assessment: 87yo F with PMH DM, HTN, HLD, CAD s/p coronary stent, CHF, COPD, asthma, anemia, anxiety and arthritis sent in by breaker table worker, Dr. Hernandez, for unstable angina. Per discussions with the patient's daughter - the patient has been eating less and less. Plan: Failure to thrive: Per discussions with the patient's family member Kira Conteh, the patient has been eating less and less. Often times only eating breakfast and about 25% of it Because of her weakness very likely will need to go to [facility] Unstable Angina - cardiac cath done and non obstructive coranaries On Telemetry floor Duonebs x1, Maalox 30mL PO x1, ASA 325mg PO x1, Mag Citrate 300mL PO x1, Solumedrol 125mg IVP given in ED EKG: NSR@63, LBBB - previous EKG remarkable for LBBB CXR (11/20): No acute cardiopulmonary interval pathology noted. Chronic scarring right lung apex, no significant pleural effusion identified, no pneumothorax, aortic athersclerotic calcification on xray Echo (01/08/18): LVEF 65-70%, diastolic dysfunction Echo 11/21/18 - pending results - Trop neg x3 - Tylenol 650mg po q6 prn - Nuclear test done today - f/u official results - Cardio consulted: Dr. Hernandez - help appreciated - Cardiac cath shows non obstructive coronaries, EF 50%, continue medical management Diastolic CHF, chronic CAD s/p coronary stent Last ECHO 01/08/18: LVEF 65-70%, diastolic dysfunction Cardiac cath in 2015 with 2 stents placed - home ASA 81mg po daily - home Crestor 5mg po HS - Cardio on case: Dr. Hernandez - nuclear stress test. Hypertension - home Cozaar 25mg po daily - home Norvasc 10mg po daily - monitor vitals Diabetes Mellitus Last Hgb A1c 01/09/18: 7.1 - f/u Hgb A1c - 7.7 - Accuchecks ACHS -> q6 - ISS, low - hypoglycemia protocol Hyperlipidemia Last lipid panel 02/11/18: TG 66 Chol 107 LDL 41 HDL 46 - home Crestor 5mg po HS COPD - home Spiriva 18mcg INH daily Anxiety - home Xanax 1mg po HS Arthritis - home Tylenol 650mg po prn Anemia - home Ferrous sulfate 325mg po daily - monitor with AM labs PPx - DVT: Heparni 5000u SC q8, SCDs - GI: home Colace 100mg po TID - Diet: HHD - PT/OT - follow up recs
[2018-11-23] MEDS ORDERED: Aluminum Hydroxide/Magnesium Hydroxide Susp (30 mL) PO ONE (14:30)
--- NOTE | 2018-11-23 19:01 | CP.PCM.PN ---
Subjective - Date & Time of Evaluation Date of Evaluation: 11/23/18 Time of Evaluation: 19:00 - Subjective Subjective: Patient seen and evaluated Non cardiac chest pains Objective - Vital Signs/Intake and Output Vital Signs (last 24 hours): Temp Pulse Resp BP Pulse Ox 97.8 F 58 L 20 128/68 98 11/23/18 07:00 11/23/18 07:45 11/23/18 07:00 11/23/18 07:00 11/23/18 07:15 - Medications Medications: Current Medications Acetaminophen (Tylenol 325mg Tab) 650 mg PO Q6 PRN PRN Reason: Pain, Mild (1-3) Last Admin: 11/22/18 20:33 Dose: 650 mg Albuterol/Ipratropium (Duoneb 3 Mg/0.5 Mg (3 Ml) Ud) 3 ml INH RQ6 PRN PRN Reason: Shortness of Breath Last Admin: 11/23/18 09:22 Dose: 3 ml Alprazolam (Xanax) 1 mg PO HS [facility] Last Admin: 11/22/18 21:10 Dose: 1 mg Amlodipine Besylate (Norvasc) 10 mg PO DAILY [facility] Last Admin: 11/23/18 09:33 Dose: 10 mg Aspirin (Aspirin Chewable) 81 mg PO DAILY [facility] Last Admin: 11/23/18 09:33 Dose: 81 mg Dextrose (Dextrose 50% Inj) 0 ml IV STAT PRN; Protocol PRN Reason: Hypoglycemia Protocol Dextrose (Glutose 15) 0 gm PO ONCE PRN; Protocol PRN Reason: Hypoglycemia Protocol Docusate Sodium (Colace) 100 mg PO TID [facility] Last Admin: 11/23/18 09:33 Dose: 100 mg Famotidine (Pepcid) 20 mg PO DAILY [facility] Last Admin: 11/23/18 09:33 Dose: 20 mg Ferrous Sulfate (Feosol) 325 mg PO DAILY [facility] Last Admin: 11/23/18 09:33 Dose: 325 mg Glucagon (Glucagen Diagnostic Kit) 0 mg IM STAT PRN; Protocol PRN Reason: Hypoglycemia Protocol Heparin Sodium (Porcine) (Heparin) 5,000 units SC Q8 [facility] Last Admin: 11/23/18 06:03 Dose: 5,000 units Dextrose (Dextrose 5% In Water 1000 Ml) 1,000 mls @ 0 mls/hr IV .Q0M PRN; Protocol PRN Reason: Hypoglycemia Protocol Insulin Aspart (Novolog) 0 unit SC ACHS [facility]; Protocol Last Admin: 11/23/18 08:00 Dose: 2 units Losartan Potassium (Cozaar) 25 mg PO DAILY [facility] Last Admin: 11/23/18 09:33 Dose: 25 mg Rosuvastatin Calcium (Crestor) 5 mg PO HS [facility] Last Admin: 11/22/18 21:10 Dose: 5 mg - Labs Labs: 11/23/18 08:21 11/23/18 08:21 PT 11.8 SECONDS (9.7-12.2) 11/20/18 17:23 INR 1.1 11/20/18 17:23 APTT 32 SECONDS (21-34) 11/20/18 17:23 - Constitutional Appears: No Acute Distress, Older Than Stated Age, Confused, Cachectic, Chronically Ill - Head Exam Head Exam: NORMAL INSPECTION - Eye Exam Eye Exam: EOMI - ENT Exam ENT Exam: Mucous Membranes Moist - Respiratory Exam Respiratory Exam: Clear to Ausculation Bilateral, NORMAL BREATHING PATTERN - Cardiovascular Exam Cardiovascular Exam: REGULAR RHYTHM - GI/Abdominal Exam GI & Abdominal Exam: Soft, Normal Bowel Sounds - Neurological Exam Neurological Exam: Abnormal Gait, Alert, Altered, Awake. absent: Normal Gait - Psychiatric Exam Psychiatric exam: Depressed, Flat Affect - Skin Skin Exam: Pallor, Warm Assessment and Plan - Assessment and Plan (Free Text) Assessment: - Assessment and Plan (Free Text) Assessment: 87yo F with PMH DM, HTN, HLD, CAD s/p coronary stent, CHF, COPD, asthma, anemia, anxiety and arthritis sent in by occupational therapist assistants, Dr. Hernandez, for unstable angina. Per discussions with the patient's daughter - the patient has been eating less and less. Plan: Failure to thrive: Per discussions with the patient's family member Kira Conteh, the patient has been eating less and less. Often times only eating breakfast and about 25% of it Because of her weakness very likely will need to go to [facility] Unstable Angina - cardiac cath done and non obstructive coranaries On Telemetry floor Duonebs x1, Maalox 30mL PO x1, ASA 325mg PO x1, Mag Citrate 300mL PO x1, Solu medrol 125mg IVP given in ED EKG: NSR@63, LBBB - previous EKG remarkable for LBBB CXR (11/20): No acute cardiopulmonary interval pathology noted. Chronic scarring right lung apex, no significant pleural effusion identified, no pneumothorax, aortic athersclerotic calcification on xray Echo (01/08/18): LVEF 65-70%, diastolic dysfunction Echo 11/21/18 - pending results - Trop neg x3 - Tylenol 650mg po q6 prn - Nuclear test done today - Normal - Cardiac cath shows non obstructive coronaries, EF 50%, continue medical management Diastolic CHF, chronic CAD s/p coronary stent Last ECHO 01/08/18: LVEF 65-70%, diastolic dysfunction Cardiac cath in 2016 with 2 stents placed - home ASA 81mg po daily - home Crestor 5mg po HS - s/p Cath: Non obstructiev coronaries and normal EF Hypertension - home Cozaar 25mg po daily - home Norvasc 10mg po daily - monitor vitals Diabetes Mellitus Last Hgb A1c 01/09/18: 7.1 - f/u Hgb A1c - 7.7 - Accuchecks ACHS -> q6 - ISS, low - hypoglycemia protocol Hyperlipidemia Last lipid panel 02/11/18: TG 66 Chol 107 LDL 41 HDL 46 - home Crestor 5mg po HS COPD - home Spiriva 18mcg INH daily Anxiety - home Xanax 1mg po HS Arthritis - home Tylenol 650mg po prn Anemia - home Ferrous sulfate 325mg po daily - monitor with AM labs PPx - DVT: Heparni 5000u SC q8, SCDs - GI: home Colace 100mg po TID - Diet: HHD - PT/OT - follow up recs Objective - Vital Signs/Intake and Output Vital Signs (last 24 hours): Temp Pulse Resp BP Pulse Ox 98.4 F 80 20 115/56 L 100 11/23/18 16:22 11/23/18 16:54 11/23/18 16:22 11/23/18 16:22 11/23/18 16:22 Intake and Output: 11/23/18 11/24/18 18:59 06:59 Intake Total 400 Balance 400 - Medications Medications: Current Medications Acetaminophen (Tylenol 325mg Tab) 650 mg PO Q6 PRN PRN Reason: Pain, Mild (1-3) Last Admin: 11/22/18 20:33 Dose: 650 mg Albuterol/Ipratropium (Duoneb 3 Mg/0.5 Mg (3 Ml) Ud) 3 ml INH RQ6 PRN PRN Reason: Shortness of Breath Last Admin: 11/23/18 09:22 Dose: 3 ml Alprazolam (Xanax) 1 mg PO HS [facility] Last Admin: 11/22/18 21:10 Dose: 1 mg Amlodipine Besylate (Norvasc) 10 mg PO DAILY [facility] Last Admin: 11/23/18 09:33 Dose: 10 mg Aspirin (Aspirin Chewable) 81 mg PO DAILY [facility] Last Admin: 11/23/18 09:33 Dose: 81 mg Dextrose (Dextrose 50% Inj) 0 ml IV STAT PRN; Protocol PRN Reason: Hypoglycemia Protocol Dextrose (Glutose 15) 0 gm PO ONCE PRN; Protocol PRN Reason: Hypoglycemia Protocol Docusate Sodium (Colace) 100 mg PO TID [facility] Last Admin: 11/23/18 17:26 Dose: 100 mg Famotidine (Pepcid) 20 mg PO DAILY [facility] Last Admin: 11/23/18 09:33 Dose: 20 mg Ferrous Sulfate (Feosol) 325 mg PO DAILY [facility] Last Admin: 11/23/18 09:33 Dose: 325 mg Glucagon (Glucagen Diagnostic Kit) 0 mg IM STAT PRN; Protocol PRN Reason: Hypoglycemia Protocol Heparin Sodium (Porcine) (Heparin) 5,000 units SC Q8 [facility] Last Admin: 11/23/18 13:44 Dose: 5,000 units Dextrose (Dextrose 5% In Water 1000 Ml) 1,000 mls @ 0 mls/hr IV .Q0M PRN; Protocol PRN Reason: Hypoglycemia Protocol Insulin Aspart (Novolog) 0 unit SC ACHS [facility]; Protocol Last Admin: 11/23/18 17:27 Dose: 4 units Losartan Potassium (Cozaar) 25 mg PO DAILY [facility] Last Admin: 11/23/18 09:33 Dose: 25 mg Rosuvastatin Calcium (Crestor) 5 mg PO HS [facility] Last Admin: 11/22/18 21:10 Dose: 5 mg - Labs Labs: 11/23/18 08:21 11/23/18 08:21 PT 11.8 SECONDS (9.7-12.2) 11/20/18 17:23 INR 1.1 11/20/18 17:23 APTT 32 SECONDS (21-34) 11/20/18 17:23
--- NOTE | 2018-11-23 22:41 | CARD ---
APPROVED REPORT Date of service: 11/21/2018 Protocol: LEXISCAN Test Type: LEXISCAN STRESS Test Indications: CP Target HR: 132 bpm Resting ECG: LBBB Resting Heart Rate: 74 bpm Resting Blood Pressure: 128/80mmHg submaximum (85%): 112 bpm TEST SUMMARY PREINFSNHYPERV.52:[id number]/80.1. INFUSIONDOSE 100:300.00.01.074/.0. [id number]/80.0. PROCEDURE Pharmacologic stress testing was performed using 0.4mg per 5ml of regadenoson given intravenously over 7-10 seconds. POST EXERCISE Reason for Termination: Protocol Completed Target HR: No Max HR: 74 bpm 78% of Maximum Predicted HR: 132 bpm Exercise duration: 00:30 min:sec, 0 Stage Exercise capacity: 1.0METs Max Blood Pressure: 128/80mmHg Blood Pressure response to exercise: normal resting BP - appropriate response Heart Rate response to exercise: appropriate Chest Pain: Yes, non-limiting Angina index: 0 Arrhythmia: No, none ST Change: Yes, inconclusive due to LBBB Deviation: 0 mm INTERPRETATION Stress EKG Conclusion: Results will be dependent upon the nuclear images. EXAM: Myocardial Perfusion REST/STRESS Imaging Protocol The imaging protocol used to acquire images was Rest Tc-99m/stress Tc-99m 1 day Rest Spect myocardial perfusion imaging was performed in supine position 45 minutes following the injection of 13.2 mCi of Tc-99 Myoview. Gated Stress Spect was performed 45 minutes after intravenous 32.5 mCi Tc-99 Myoview injection. The images were gated to evaluate regional wall motion and calculate ventricular ejection fraction.Images were reconstructed using backfilter projection method in short horizontal and verticle long axis. Spect slices were generated. RESTING DATA EDV76.16bxZD3.80L/min ESV21.00mlMyocardial Drpx238.00g Av. Heart Rate51.00bpm EF72.00% STRESS DATA EDV76.42cdVR3.60L/min ESV18.00mlMyocardial Vgwd410.00g EF76.00% Regional WT score at stress:2.00 Regional WM score at stress:0.00 Summed WT score at stress:20.00 Av. Heart Rate78.00bpmSummed WM score at stress:0.00 LV Perf. Quant 17 Seg. SSS1.00 17 Seg. SRS4.00 17 Seg. SDS0.00 Stress Defect Extent (% LAD)0.00Rest Defect Extent (% LAD)0.00Rev. Defect Extent (% LAD)0.00 Stress Defect Extent (% LCX)5.00Rest Defect Extent (% LCX)40.00Rev. Defect Extent (% LCX)0.00 Stress Defect Extent (% RCA)0.00Rest Defect Extent (% RCA)0.00Rev. Defect Extent (% RCA)0.00 Stress Defect Extent (% PAT)0.90Rest Defect Extent (% PAT)7.60Rev. Defect Extent (% PAT)0.00 Other Information Quality:Good IMPRESSION Normal Myocardial Perfusion exercise stress study Left Ventricle LV Function:Left ventricle systolic function is normal. The Ejection Fraction is >70%. Metabolism/Perfusion There are no perfusion/metabolism defects. Conclusion 1. Normal Lexiscan Nuclear Stress test. EF 70%
--- NOTE | 2018-11-24 05:30 | CP.PCM.PN ---
<Tommie Vallecillo - Last Filed: 11/24/18 06:13> Subjective - Date & Time of Evaluation Date of Evaluation: 11/24/18 Time of Evaluation: 05:35 - Subjective Subjective: Medicine progress note for Dr. Jalloh. Pt seen and examined at bedside. Pt continues to report of generalized fatigueness/generalized body pains form chest to back to abdominal region.Pt reports she did have bowel movement today. Denies fevers/chills, headaches, visi on changes, nausea, vomiting, dysuria. Objective - Vital Signs/Intake and Output Vital Signs (last 24 hours): Temp Pulse Resp BP Pulse Ox 98.1 F 72 20 129/55 L 98 11/23/18 23:40 11/24/18 00:37 11/23/18 23:40 11/23/18 23:40 11/23/18 23:40 Intake and Output: 11/23/18 11/24/18 18:59 06:59 Intake Total 400 Balance 400 - Medications Medications: Current Medications Acetaminophen (Tylenol 325mg Tab) 650 mg PO Q6 PRN PRN Reason: Pain, Mild (1-3) Last Admin: 11/22/18 20:33 Dose: 650 mg Albuterol/Ipratropium (Duoneb 3 Mg/0.5 Mg (3 Ml) Ud) 3 ml INH RQ6 PRN PRN Reason: Shortness of Breath Last Admin: 11/23/18 20:03 Dose: 3 ml Alprazolam (Xanax) [address] [facility] Last Admin: 11/23/18 21:29 Dose: 1 mg Amlodipine Besylate (Norvasc) [address] [facility] Last Admin: 11/23/18 09:33 Dose: 10 mg Aspirin (Aspirin Chewable) [address] [facility] Last Admin: 11/23/18 09:33 Dose: 81 mg Dextrose (Dextrose 50% Inj) 0 ml IV STAT PRN; Protocol PRN Reason: Hypoglycemia Protocol Dextrose (Glutose 15) 0 gm PO ONCE PRN; Protocol PRN Reason: Hypoglycemia Protocol Docusate Sodium (Colace) [address] [facility] Last Admin: 11/23/18 17:26 Dose: 100 mg Famotidine (Pepcid) [address] [facility] Last Admin: 11/23/18 09:33 Dose: 20 mg Ferrous Sulfate (Feosol) [address] [facility] Last Admin: 11/23/18 09:33 Dose: 325 mg Glucagon (Glucagen Diagnostic Kit) 0 mg IM STAT PRN; Protocol PRN Reason: Hypoglycemia Protocol Insulin Aspart (Novolog) [address] [facility]; Protocol Last Admin: 11/23/18 21:27 Dose: Not Given Losartan Potassium (Cozaar) [address] [facility] Last Admin: 11/23/18 09:33 Dose: 25 mg Rosuvastatin Calcium (Crestor) [address] [facility] Last Admin: 11/23/18 21:29 Dose: 5 mg - Labs Labs: 11/23/18 08:21 11/23/18 08:21 PT 11.8 SECONDS (9.7-12.2) 11/20/18 17:23 INR 1.1 11/20/18 17:23 APTT 32 SECONDS (21-34) 11/20/18 17:23 - Constitutional Appears: Non-toxic, No Acute Distress - Head Exam Head Exam: NORMAL INSPECTION - Eye Exam Eye Exam: EOMI, Normal appearance - ENT Exam ENT Exam: Mucous Membranes Moist - Respiratory Exam Respiratory Exam: Clear to Ausculation Bilateral, NORMAL BREATHING PATTERN. absent: Rales, Rhonchi, Wheezes - Cardiovascular Exam Cardiovascular Exam: +S1, +S2. absent: Murmur - GI/Abdominal Exam GI & Abdominal Exam: Soft, Normal Bowel Sounds. absent: Tenderness - Back Exam Back Exam: absent: CVA tenderness (L), CVA tenderness (R) - Neurological Exam Neurological Exam: Alert, Awake - Psychiatric Exam Psychiatric exam: Depressed, Flat Affect - Skin Skin Exam: Dry, Normal Color, Warm Assessment and Plan - Assessment and Plan (Free Text) Assessment: 87yo F with PMH DM, HTN, HLD, CAD s/p coronary stent, CHF, COPD, asthma, anemia, anxiety and arthritis sent in by education department registrar, Dr. Hernandez, for unstable angina. Per discussions with the patient's daughter - the patient has been eating less and less. Plan: ailure to thrive: Per discussions with the patient's family member Kira Conteh, the patient has been eating less and less. Often times only eating breakfast and about 25% of it Because of her weakness very likely will need to go to [facility] Unstable Angina - cardiac cath done and non obstructive coranaries On Telemetry floor Duonebs x1, Maalox 30mL PO x1, ASA 325mg PO x1, Mag Citrate 300mL PO x1, Solumedrol 125mg IVP given in ED EKG: NSR@63, LBBB - previous EKG remarkable for LBBB CXR (11/20): No acute cardiopulmonary interval pathology noted. Chronic scarring right lung apex, no significant pleural effusion identified, no pneumothorax, ao rtic athersclerotic calcification on xray Echo (01/08/18): LVEF 65-70%, diastolic dysfunction Echo 11/21/18 - pending results - Trop neg x3 - Tylenol 650mg po q6 prn - Nuclear test done today - normal exam EF > 70% - Cardio consulted: Dr. Hernandez - help appreciated - Cardiac cath shows non obstructive coronaries, EF 50%, continue medical management Diastolic CHF, chronic CAD s/p coronary stent Last ECHO 01/08/18: LVEF 65-70%, diastolic dysfunction Cardiac cath in 2015 with 2 stents placed - home ASA 81mg po daily - home Crestor 5mg po HS - Cardio on case: Dr. Hernandez - post nuclear stress test & cardiac cath requiring no stents, pain likely non cardiac Hypertension - home Cozaar 25mg po daily - home Norvasc 10mg po daily - monitor vitals Diabetes Mellitus Last Hgb A1c 01/09/18: 7.1 - f/u Hgb A1c - 7.7 - Accuchecks ACHS - ISS, low - hypoglycemia protocol Hyperlipidemia Last lipid panel 02/11/18: TG 66 Chol 107 LDL 41 HDL 46 - home Crestor 5mg po HS COPD - home Spiriva 18mcg INH daily Anxiety - home Xanax 1mg po HS Arthritis - home Tylenol 650mg po prn Anemia - home Ferrous sulfate 325mg po daily - monitor with AM labs PPx - DVT: Heparni 5000u SC q8, SCDs - GI: home Colace 100mg po TID - Diet: HHD - PT/OT - follow up recs, pt declined examination on PT examination on 11/23 <Hieu Jalloh H - Last Filed: 11/24/18 10:30> Objective - Vital Signs/Intake and Output Vital Signs (last 24 hours): Temp Pulse Resp BP Pulse Ox 97.9 F 62 20 156/75 H 98 11/24/18 07:00 11/24/18 07:00 11/24/18 07:00 11/24/18 07:00 11/24/18 07:00 - Medications Medications: Current Medications Acetaminophen (Tylenol 325mg Tab) 650 mg PO Q6 PRN PRN Reason: Pain, Mild (1-3) Last Admin: 11/24/18 06:49 Dose: 650 mg Albuterol/Ipratropium (Duoneb 3 Mg/0.5 Mg (3 Ml) Ud) 3 ml INH RQ6 PRN PRN Reason: Shortness of Breath Last Admin: 11/23/18 20:03 Dose: 3 ml Alprazolam (Xanax) [address] [facility] Last Admin: 11/23/18 21:29 Dose: 1 mg Amlodipine Besylate (Norvasc) [address] [facility] Last Admin: 11/24/18 09:35 Dose: 10 mg Aspirin (Aspirin Chewable) [address] [facility] Last Admin: 11/24/18 09:35 Dose: 81 mg Dextrose (Dextrose 50% Inj) 0 ml IV STAT PRN; Protocol PRN Reason: Hypoglycemia Protocol Dextrose (Glutose 15) 0 gm PO ONCE PRN; Protocol PRN Reason: Hypoglycemia Protocol Docusate Sodium (Colace) [address] [facility] Last Admin: 11/24/18 09:35 Dose: 100 mg Famotidine (Pepcid) [address] [facility] Last Admin: 11/24/18 09:35 Dose: 20 mg Ferrous Sulfate (Feosol) [address] [facility] Last Admin: 11/24/18 09:35 Dose: 325 mg Glucagon (Glucagen Diagnostic Kit) 0 mg IM STAT PRN; Protocol PRN Reason: Hypoglycemia Protocol Heparin Sodium (Porcine) (Heparin) 5,[address] [facility] Last Admin: 11/24/18 06:40 Dose: 5,000 units Insulin Aspart (Novolog) [address] [facility]; Protocol Last Admin: 11/24/18 08:04 Dose: 3 units Losartan Potassium (Cozaar) [address] [facility] Last Admin: 11/24/18 09:35 Dose: 25 mg Rosuvastatin Calcium (Crestor) [address] [facility] Last Admin: 11/23/18 21:29 Dose: 5 mg - Labs Labs: 11/24/18 08:20 11/24/18 08:20 PT 11.8 SECONDS (9.7-12.2) 11/20/18 17:23 INR 1.1 11/20/18 17:23 APTT 32 SECONDS (21-34) 11/20/18 17:23 Attending/Attestation - Attestation I have personally seen and examined this patient.: Yes I have fully participated in the care of the patient.: Yes I have reviewed all pertinent clinical information, including history, physical exam and plan: Yes Notes (Text): Medical attending: Patient was seen and examined by me. Agree with the above note by the resident. The patient reported she was having back pain today. Denies shortness of breath. Yesterday she ate almost nothing and I pointed this our to the daughter (whom is also a patient in the hospital) The patient has been eating less and less for sometime now. Today when I looked at the food tray it was almost all eaten - this is a first However I was very careful and took the time to explain to the daughter that if the patient continues to refuse to eat that the overall prognosis is not good. At this moment we are still pending for [facility] Jalloh
[2018-11-24] MEDS: (Novolog) Insulin Aspart, Recombinant 100 u/ml 10 ml vial SC SCH ×4 (08:04→21:56)
[2018-11-24 08:35] LABS: BASO % 0.7 % (0.0-2.0); EOS # 0.4 K/uL (0.0-0.7); EOS % 5.5 % (0.0-4.0); HEMOGLOBIN 11.3 g/dL (11.0-16.0); LYMPH % 29.6 % (20.0-40.0); MEAN CELL VOLUME 90.1 fL (81.0-99.0); MEAN CORPUSCULAR HEMOGLOBIN 30.4 pg (27.0-31.0); MEAN CORPUSCULAR HGB CONC 33.8 g/dL (33.0-37.0); MEAN PLATELET VOLUME 9.1 fL (7.2-11.7); MONO # 0.7 K/uL (0.0-0.8); MONO % 10.6 % (0.0-10.0); NEUT # 3.6 K/uL (1.8-7.0); NEUT % 53.6 % (50.0-75.0); NRBC % 0.1 % (0.0-2.0); RBC 3.72 Mil/uL (3.80-5.20); RED CELL DISTRIBUTION WIDTH 14.4 % (11.5-14.5); WHITE BLOOD COUNT 6.8 K/uL (4.8-10.8)
[2018-11-24 09:09] LABS: ALB/GLOB RATIO 1.4 (1.0-2.1); ALBUMIN 3.6 g/dL (3.5-5.0)
[2018-11-24] MEDS: Albuterol-Ipratrop 3 mg / 0.5 (3 ml) UD INH PRN (19:59)
--- NOTE | 2018-11-24 23:42 | CP.PCM.PN ---
Subjective - Date & Time of Evaluation Date of Evaluation: 11/24/18 Time of Evaluation: 16:20 - Subjective Subjective: Patient seen and evaluated Non cardiac chest pains Objective - Constitutional Appears: No Acute Distress, Older Than Stated Age, Confused, Cachectic, Chronically Ill - Head Exam Head Exam: NORMAL INSPECTION - Eye Exam Eye Exam: EOMI - ENT Exam ENT Exam: Mucous Membranes Moist - Respiratory Exam Respiratory Exam: Clear to Ausculation Bilateral, NORMAL BREATHING PATTERN - Cardiovascular Exam Cardiovascular Exam: REGULAR RHYTHM - GI/Abdominal Exam GI & Abdominal Exam: Soft, Normal Bowel Sounds - Neurological Exam Neurological Exam: Abnormal Gait, Alert, Altered, Awake. absent: Normal Gait - Psychiatric Exam Psychiatric exam: Depressed, Flat Affect - Skin Skin Exam: Pallor, Warm Assessment and Plan - Assessment and Plan (Free Text) Assessment: - Assessment and Plan (Free Text) Assessment: 87yo F with PMH DM, HTN, HLD, CAD s/p coronary stent, CHF, COPD, asthma, anemia, anxiety and arthritis sent in by industrial tractor driver, Dr. Hernadnez, for unstable angina. Per discussions with the patient's daughter - the patient has been eating less and less. Plan: Failure to thrive: Per discussions with the patient's family member Kira Conteh, the patient has been eating less and less. Often times only eating breakfast and about 25% of it Because of her weakness very likely will need to go to [facility] Unstable Angina - cardiac cath done and non obstructive coranaries On Telemetry floor Duonebs x1, Maalox 30mL PO x1, ASA 325mg PO x1, Mag Citrate 300mL PO x1, Solumedrol 125mg IVP given in ED EKG: NSR@63, LBBB - previous EKG remarkable for LBBB CXR (11/20): No acute cardiopulmonary interval pathology noted. Chronic scarring right lung apex, no significant pleural effusion identified, no pneumothorax, aortic athersclerotic calcification on xray Echo (01/08/18): LVEF 65-70%, diastolic dysfunction Echo 11/21/18 - pending results - Trop neg x3 - Tylenol 650mg po q6 prn - Nuclear test done today - Normal - Cardiac cath shows non obstructive coronaries, EF 50%, continue medical management Diastolic CHF, chronic CAD s/p coronary stent Last ECHO 01/08/18: LVEF 65-70%, diastolic dysfunction Cardiac cath in 2016 with 2 stents placed - home ASA 81mg po daily - home Crestor 5mg po HS - s/p Cath: Non obstructiev coronaries and normal EF Hypertension - home Cozaar 25mg po daily - home Norvasc 10mg po daily - monitor vitals Diabetes Mellitus Last Hgb A1c 01/09/18: 7.1 - f/u Hgb A1c - 7.7 - Accuchecks ACHS -> q6 - ISS, low - hypoglycemia protocol Hyperlipidemia Last lipid panel 02/11/18: TG 66 Chol 107 LDL 41 HDL 46 - home Crestor 5mg po HS COPD - home Spiriva 18mcg INH daily Anxiety - home Xanax 1mg po HS Arthritis - home Tylenol 650mg po prn Anemia - home Ferrous sulfate 325mg po daily - monitor with AM labs PPx - DVT: Heparni 5000u SC q8, SCDs - GI: home Colace 100mg po TID - Diet: HHD - PT/OT - follow up recs Objective - Vital Signs/Intake and Output Vital Signs (last 24 hours): Temp Pulse Resp BP Pulse Ox 98.3 F 65 20 130/62 100 11/24/18 16:00 11/24/18 16:00 11/24/18 16:00 11/24/18 16:00 11/24/18 16:00 Intake and Output: 11/24/18 11/25/18 18:59 06:59 Intake Total 500 350 Balance 500 350 - Medications Medications: Current Medications Acetaminophen (Tylenol 325mg Tab) 650 mg PO Q6 PRN PRN Reason: Pain, Mild (1-3) Last Admin: 11/24/18 06:49 Dose: 650 mg Albuterol/Ipratropium (Duoneb 3 Mg/0.5 Mg (3 Ml) Ud) 3 ml INH RQ6 PRN PRN Reason: Shortness of Breath Last Admin: 11/24/18 19:59 Dose: 3 ml Alprazolam (Xanax) 1 mg PO HS [facility] Last Admin: 11/24/18 21:57 Dose: 1 mg Amlodipine Besylate (Norvasc) 10 mg PO DAILY [facility] Last Admin: 11/24/18 09:35 Dose: 10 mg Aspirin (Aspirin Chewable) 81 mg PO DAILY [facility] Last Admin: 11/24/18 09:35 Dose: 81 mg Dextrose (Dextrose 50% Inj) 0 ml IV STAT PRN; Protocol PRN Reason: Hypoglycemia Protocol Dextrose (Glutose 15) 0 gm PO ONCE PRN; Protocol PRN Reason: Hypoglycemia Protocol Docusate Sodium (Colace) 100 mg PO TID [facility] Last Admin: 11/24/18 17:23 Dose: 100 mg Famotidine (Pepcid) 20 mg PO DAILY [facility] Last Admin: 11/24/18 09:35 Dose: 20 mg Ferrous Sulfate (Feosol) 325 mg PO DAILY [facility] Last Admin: 11/24/18 09:35 Dose: 325 mg Glucagon (Glucagen Diagnostic Kit) 0 mg IM STAT PRN; Protocol PRN Reason: Hypoglycemia Protocol Heparin Sodium (Porcine) (Heparin) 5,000 units SC Q8 [facility] Last Admin: 11/24/18 21:57 Dose: 5,000 units Insulin Aspart (Novolog) 0 unit SC ACHS [facility]; Protocol Last Admin: 11/24/18 21:56 Dose: 2 units Losartan Potassium (Cozaar) 25 mg PO DAILY [facility] Last Admin: 11/24/18 09:35 Dose: 25 mg Rosuvastatin Calcium (Crestor) 5 mg PO HS [facility] Last Admin: 11/24/18 21:57 Dose: 5 mg - Labs Labs: 11/24/18 08:20 11/24/18 08:20 PT 11.8 SECONDS (9.7-12.2) 11/20/18 17:23 INR 1.1 11/20/18 17:23 APTT 32 SECONDS (21-34) 11/20/18 17:23
--- NOTE | 2018-11-25 06:53 | CARDCATH ---
PROCEDURE DATE: 11/22/2018 PROCEDURES: 1. Left heart catheterization. 2. Coronary angiogram. REFERRING PHYSICIAN: Torie Wright DO. PERFORMING PHYSICIAN: Andrew Hernandez MD. CLINICAL INDICATIONS: 1. Chest pain. 2. Hypertension. 3. Coronary artery disease, history of multiple stents. 4. Hyperlipidemia. PROCEDURE FINDINGS: After informed consent, the patient was prepped and draped in the usual sterile fashion. Lidocaine 2% was given in the right groin for local anesthesia. Using micropuncture technique, a 6-Namibian sheath was introduced into right common femoral artery. A 6-Namibian JL4 diagnostic catheter engaged into left main coronary artery. Contrast injected and left coronary angiogram was done. Then, the catheter was exchanged to a 6-Namibian JR4 diagnostic catheter. The catheter was inserted into left ventricle across the aortic valve. LVEDP measured. Contrast injected and LV angiogram was done. Then, the catheter was pulled back across the aortic valve. Gradient across the aortic valve was measured. Then, the same catheter engaged into right coronary artery. Contrast injected and right coronary angiogram was done. The patient tolerated the procedure well. Postprocedure Mynx closure device deployed in the right groin with excellent hemostasis. Radiological supervision and radiological interpretation of the coronary imaging was done. FINDINGS: 1. Left main coronary artery is patent. 2. Mid LAD stent is patent. Proximal and distal LAD is patent. There is a mild luminal irregularity prior and distal to the stent. Diagonal 1 branch has 50% proximal stenosis. 3. Proximal left circumflex and obtuse marginal branches are patent. Distal left circumflex is small, has 90% concentric stenosis. 4. Right coronary artery is dominant. Proximal RCA has 50% concentric stenosis. Prior stent in the distal RCA is patent. PDA and PLV branches are patent. 5. LV ejection fraction is approximately 50%. Mild anterolateral hypokinesis. EDP is 18. No gradient across the aortic valve. IMPRESSION: 1. Nonobstructive coronaries as described above. 2. Mildly decreased left ventricular function. RECOMMENDATION: Antiplatelet and statins . Andrew Hernandez MD
--- NOTE | 2018-11-25 06:56 | CP.PCM.PN ---
<Tommie Vallecillo - Last Filed: 11/25/18 14:19> Subjective - Date & Time of Evaluation Date of Evaluation: 11/25/18 Time of Evaluation: 07:40 - Subjective Subjective: Medicine progress note for Dr. Huston. Pt seen and examined at bedside. patient complains of generalized boy pain. Pt reports pain around herparin injection site. Pt denies fevers/ chills, nausea, vomitting, chest pain, SOB, diarrhea, constipation. Pt reports only eating small amounts of food. Objective - Vital Signs/Intake and Output Vital Signs (last 24 hours): Temp Pulse Resp BP Pulse Ox 98.2 F 72 20 132/60 98 11/24/18 23:30 11/24/18 23:30 11/24/18 23:30 11/24/18 23:30 11/24/18 23:30 Intake and Output: 11/24/18 11/25/18 18:59 06:59 Intake Total 500 350 Balance 500 350 - Medications Medications: Current Medications Acetaminophen (Tylenol 325mg Tab) 650 mg PO Q6 PRN PRN Reason: Pain, Mild (1-3) Last Admin: 11/24/18 06:49 Dose: 650 mg Albuterol/Ipratropium (Duoneb 3 Mg/0.5 Mg (3 Ml) Ud) 3 ml INH RQ6 PRN PRN Reason: Shortness of Breath Last Admin: 11/24/18 19:59 Dose: 3 ml Alprazolam (Xanax) 1 mg PO HS [facility] Last Admin: 11/24/18 21:57 Dose: 1 mg Amlodipine Besylate (Norvasc) 10 mg PO DAILY [facility] Last Admin: 11/24/18 09:35 Dose: 10 mg Aspirin (Aspirin Chewable) 81 mg PO DAILY [facility] Last Admin: 11/24/18 09:35 Dose: 81 mg Dextrose (Dextrose 50% Inj) 0 ml IV STAT PRN; Protocol PRN Reason: Hypoglycemia Protocol Dextrose (Glutose 15) 0 gm PO ONCE PRN; Protocol PRN Reason: Hypoglycemia Protocol Docusate Sodium (Colace) 100 mg PO TID [facility] Last Admin: 11/24/18 17:23 Dose: 100 mg Famotidine (Pepcid) 20 mg PO DAILY [facility] Last Admin: 11/24/18 09:35 Dose: 20 mg Ferrous Sulfate (Feosol) 325 mg PO DAILY [facility] Last Admin: 11/24/18 09:35 Dose: 325 mg Glucagon (Glucagen Diagnostic Kit) 0 mg IM STAT PRN; Protocol PRN Reason: Hypoglycemia Protocol Heparin Sodium (Porcine) (Heparin) 5,000 units SC Q8 [facility] Last Admin: 11/25/18 06:02 Dose: 5,000 units Insulin Aspart (Novolog) 0 unit SC ACHS [facility]; Protocol Last Admin: 11/24/18 21:56 Dose: 2 units Losartan Potassium (Cozaar) 25 mg PO DAILY [facility] Last Admin: 11/24/18 09:35 Dose: 25 mg Rosuvastatin Calcium (Crestor) 5 mg PO HS [facility] Last Admin: 11/24/18 21:57 Dose: 5 mg - Labs Labs: 11/24/18 08:20 11/24/18 08:20 PT 11.8 SECONDS (9.7-12.2) 11/20/18 17:23 INR 1.1 11/20/18 17:23 APTT 32 SECONDS (21-34) 11/20/18 17:23 - Constitutional Appears: Non-toxic, No Acute Distress, Cachectic - Head Exam Head Exam: NORMAL INSPECTION - Eye Exam Eye Exam: Normal appearance - ENT Exam ENT Exam: Mucous Membranes Moist - Respiratory Exam Respiratory Exam: Clear to Ausculation Bilateral, NORMAL BREATHING PATTERN. absent: Rales, Rhonchi, Wheezes - Cardiovascular Exam Cardiovascular Exam: +S1, +S2 - GI/Abdominal Exam GI & Abdominal Exam: Soft, Tenderness, Normal Bowel Sounds. absent: Firm, Gu arding, Rigid Additional comments: tenderness over heparin site no erythema present - Extremities Exam Extremities Exam: Full ROM, Normal Inspection. absent: Calf Tenderness, Pedal Edema - Back Exam Back Exam: absent: CVA tenderness (L), CVA tenderness (R) - Neurological Exam Neurological Exam: Alert, Awake, Oriented x3 - Psychiatric Exam Psychiatric exam: Normal Affect, Normal Mood - Skin Skin Exam: Dry, Intact, Normal Color, Warm Assessment and Plan - Assessment and Plan (Free Text) Assessment: 87yo F with PMH DM, HTN, HLD, CAD s/p coronary stent, CHF, COPD, asthma, anemia, anxiety and arthritis sent in by journey lineman, Dr. Hernandez, for unstable angina. Per discussions with the patient's daughter - the patient has been eating less and less; presently pt has RODGER Plan: Failure to thrive: - Per discussions with the patient's family member Kira Conteh, the patient has been eating less and less. - Often times only eating breakfast and about 25% of it RODGER - pt has underlying CKD w/ GFR in 40s - likely due to dehydration - NS 70 mls/hr Unstable Angina - cardiac cath done and non obstructive coranaries On Telemetry floor Duonebs x1, Maalox 30mL PO x1, ASA 325mg PO x1, Mag Citrate 300mL PO x1, Solumedrol 125mg IVP given in ED EKG: NSR@63, LBBB - previous EKG remarkable for LBBB CXR (11/20): No acute cardiopulmonary interval pathology noted. Chronic scarring right lung apex, no significant pleural effusion identified, no pneumothorax, aortic athersclerotic calcification on xray Echo (01/08/18): LVEF 65-70%, diastolic dysfunction Echo 11/21/18 - pending results - Trop neg x3 - Tylenol 650mg po q6 prn - Nuclear test done today - normal exam EF > 70% - Cardio consulted: Dr. Hernandez - help appreciated - Cardiac cath shows non obstructive coronaries, EF 50%, continue medical management Diastolic CHF, chronic CAD s/p coronary stent Last ECHO 01/08/18: LVEF 65-70%, diastolic dysfunction Cardiac cath in 2015 with 2 stents placed - home ASA 81mg po daily - home Crestor 5mg po HS - Cardio on case: Dr. Hernandez - post nuclear stress test & cardiac cath requiring no stents, pain likely non cardiac Hypertension - home Cozaar 25mg po daily - home Norvasc 10mg po daily - monitor vitals Diabetes Mellitus Last Hgb A1c 01/09/18: 7.1 - f/u Hgb A1c - 7.7 - Accuchecks ACHS - ISS, low - hypoglycemia protocol - pt uses lantus 5 units HS & humalog 75/25 20 units at breakfast and 8 units - will resume lantus tonight and monitor blood sugars Hyperlipidemia Last lipid panel 02/11/18: TG 66 Chol 107 LDL 41 HDL 46 - home Crestor 5mg po HS COPD - home Spiriva 18mcg INH daily Anxiety - home Xanax 0.25 mg BID PRN Arthritis - home Tylenol 650mg po prn Anemia - home Ferrous sulfate 325mg po daily - monitor with AM labs PPx - DVT: Heparni 5000u SC q8, SCDs - GI: home Colace 100mg po TID - Diet: HHD - PT/OT - home with services Dispo: Pt likely candidate for d/c 11/26 <Dori Huston - Last Filed: 11/27/18 08:49> Objective - Vital Signs/Intake and Output Vital Signs (last 24 hours): Temp Pulse Resp BP Pulse Ox 97.6 F 62 20 156/63 H 97 11/26/18 07:00 11/26/18 07:00 11/26/18 07:00 11/26/18 07:00 11/26/18 07:00 - Labs Labs: 11/26/18 07:12 11/26/18 07:12 PT 11.8 SECONDS (9.7-12.2) 11/20/18 17:23 INR 1.1 11/20/18 17:23 APTT 32 SECONDS (21-34) 11/20/18 17:23 Attending/Attestation - Attestation I have personally seen and examined this patient.: Yes I have fully participated in the care of the patient.: Yes I have reviewed all pertinent clinical information, including history, physical exam and plan: Yes Notes (Text): Patient is on bed comfortable.no chest pain,Discussed about discharge plan and encouraged to have more food and fluids intake I tried to contact her family. spoke to her son who wanted me to talk to her daughter. Patient's son ask me to call back to get her sister's phone number.Multiple attempt made to contact him back no answer. we will continue home meds,encourage intake,follow primary care after discharge
[2018-11-25] MEDS: (Novolog) Insulin Aspart, Recombinant 100 u/ml 10 ml vial SC SCH ×4 (07:55→21:25)
[2018-11-25 11:58] LABS: BASO % 0.6 % (0.0-2.0); EOS # 0.3 K/uL (0.0-0.7); EOS % 3.9 % (0.0-4.0); HEMOGLOBIN 11.1 g/dL (11.0-16.0); LYMPH # 1.7 K/uL (1.0-4.3); LYMPH % 21.7 % (20.0-40.0); MEAN CELL VOLUME 90.8 fL (81.0-99.0); MEAN CORPUSCULAR HEMOGLOBIN 30.4 pg (27.0-31.0); MEAN CORPUSCULAR HGB CONC 33.4 g/dL (33.0-37.0); MEAN PLATELET VOLUME 9.5 fL (7.2-11.7); MONO # 0.8 K/uL (0.0-0.8); MONO % 10.4 % (0.0-10.0); NEUT # 5.1 K/uL (1.8-7.0); NEUT % 63.4 % (50.0-75.0); RBC 3.66 Mil/uL (3.80-5.20); RED CELL DISTRIBUTION WIDTH 14.7 % (11.5-14.5)
[2018-11-25] MEDS: Sodium Chloride 0.9% 1,000 ML IV SCH (12:25)
[2018-11-25 12:27] LABS: ALB/GLOB RATIO 1.5 (1.0-2.1); ALBUMIN 3.5 g/dL (3.5-5.0); CALCIUM 8.9 mg/dl (8.6-10.4)
[2018-11-25 15:47] VITALS: O2SAT 97
[2018-11-25] MEDS ORDERED: (Lantus) Insulin Glargine, Recombinant SC SCH (22:00)
[2018-11-26 02:31] VITALS: RESP 20
[2018-11-26] MEDS: Sodium Chloride 0.9% 1,000 ML IV SCH (05:25)
--- NOTE | 2018-11-26 05:37 | CP.PCM.PN ---
Subjective - Date & Time of Evaluation Date of Evaluation: 11/25/18 Time of Evaluation: 17:15 - Subjective Subjective: Patient seen and evaluated Non cardiac chest and body pains Medical mgt Objective - Vital Signs/Intake and Output Vital Signs (last 24 hours): Temp Pulse Resp BP Pulse Ox 99.3 F 80 20 119/59 L 97 11/25/18 23:25 11/25/18 23:25 11/25/18 23:25 11/25/18 23:25 11/25/18 23:25 Intake and Output: 11/25/18 11/26/18 18:59 06:59 Intake Total 540 910 Balance 540 910 - Medications Medications: Current Medications Acetaminophen (Tylenol 325mg Tab) 650 mg PO Q6 PRN PRN Reason: Pain, Mild (1-3) Last Admin: 11/25/18 21:47 Dose: 650 mg Albuterol/Ipratropium (Duoneb 3 Mg/0.5 Mg (3 Ml) Ud) 3 ml INH RQ6 PRN PRN Reason: Shortness of Breath Last Admin: 11/24/18 19:59 Dose: 3 ml Alprazolam (Xanax) 0.25 mg PO Q12H PRN PRN Reason: Anxiety Last Admin: 11/25/18 21:47 Dose: 0.25 mg Amlodipine Besylate (Norvasc) 10 mg PO DAILY [facility] Last Admin: 11/25/18 09:39 Dose: 10 mg Aspirin (Aspirin Chewable) 81 mg PO DAILY [facility] Last Admin: 11/25/18 09:39 Dose: 81 mg Dextrose (Dextrose 50% Inj) 0 ml IV STAT PRN; Protocol PRN Reason: Hypoglycemia Protocol Dextrose (Glutose 15) 0 gm PO ONCE PRN; Protocol PRN Reason: Hypoglycemia Protocol Docusate Sodium (Colace) 100 mg PO TID [facility] Last Admin: 11/25/18 17:13 Dose: 100 mg Famotidine (Pepcid) 20 mg PO DAILY [facility] Last Admin: 11/25/18 09:39 Dose: 20 mg Ferrous Sulfate (Feosol) 325 mg PO DAILY [facility] Last Admin: 11/25/18 11:00 Dose: 325 mg Glucagon (Glucagen Diagnostic Kit) 0 mg IM STAT PRN; Protocol PRN Reason: Hypoglycemia Protocol Heparin Sodium (Porcine) (Heparin) 5,000 units SC Q8 [facility] Last Admin: 11/25/18 21:46 Dose: 5,000 units Sodium Chloride (Sodium Chloride 0.9%) 1,000 mls @ 70 mls/hr IV .[id number] [facility] Last Admin: 11/25/18 12:25 Dose: 70 mls/hr Insulin Aspart (Novolog) 0 unit SC ACHS [facility]; Protocol Last Admin: 11/25/18 21:25 Dose: Not Given Insulin Glargine (Lantus) 5 unit SC HS [facility] Last Admin: 11/25/18 21:46 Dose: 5 units Losartan Potassium (Cozaar) 25 mg PO DAILY [facility] Last Admin: 11/25/18 09:38 Dose: 25 mg Rosuvastatin Calcium (Crestor) 5 mg PO HS [facility] Last Admin: 11/25/18 21:47 Dose: 5 mg - Labs Labs: 11/25/18 11:35 11/25/18 11:35 PT 11.8 SECONDS (9.7-12.2) 11/20/18 17:23 INR 1.1 11/20/18 17:23 APTT 32 SECONDS (21-34) 11/20/18 17:23
--- NOTE | 2018-11-26 07:04 | CP.PCM.PN ---
Objective - Vital Signs/Intake and Output Vital Signs (last 24 hours): Temp Pulse Resp BP Pulse Ox 99.3 F 80 20 119/59 L 97 11/25/18 23:25 11/25/18 23:25 11/25/18 23:25 11/25/18 23:25 11/25/18 23:25 Intake and Output: 11/26/18 11/26/18 06:59 18:59 Intake Total 910 Balance 910 - Medications Medications: Current Medications Acetaminophen (Tylenol 325mg Tab) 650 mg PO Q6 PRN PRN Reason: Pain, Mild (1-3) Last Admin: 11/26/18 05:42 Dose: 650 mg Albuterol/Ipratropium (Duoneb 3 Mg/0.5 Mg (3 Ml) Ud) 3 ml INH RQ6 PRN PRN Reason: Shortness of Breath Last Admin: 11/24/18 19:59 Dose: 3 ml Alprazolam (Xanax) 0.25 mg PO Q12H PRN PRN Reason: Anxiety Last Admin: 11/25/18 21:47 Dose: 0.25 mg Amlodipine Besylate (Norvasc) 10 mg PO DAILY [facility] Last Admin: 11/25/18 09:39 Dose: 10 mg Aspirin (Aspirin Chewable) 81 mg PO DAILY [facility] Last Admin: 11/25/18 09:39 Dose: 81 mg Dextrose (Dextrose 50% Inj) 0 ml IV STAT PRN; Protocol PRN Reason: Hypoglycemia Protocol Dextrose (Glutose 15) 0 gm PO ONCE PRN; Protocol PRN Reason: Hypoglycemia Protocol Docusate Sodium (Colace) 100 mg PO TID [facility] Last Admin: 11/25/18 17:13 Dose: 100 mg Famotidine (Pepcid) 20 mg PO DAILY [facility] Last Admin: 11/25/18 09:39 Dose: 20 mg Ferrous Sulfate (Feosol) 325 mg PO DAILY [facility] Last Admin: 11/25/18 11:00 Dose: 325 mg Glucagon (Glucagen Diagnostic Kit) 0 mg IM STAT PRN; Protocol PRN Reason: Hypoglycemia Protocol Heparin Sodium (Porcine) (Heparin) 5,000 units SC Q8 [facility] Last Admin: 11/26/18 05:37 Dose: 5,000 units Sodium Chloride (Sodium Chloride 0.9%) 1,000 mls @ 70 mls/hr IV .[id number] [facility] Last Admin: 11/26/18 05:25 Dose: 70 mls/hr Insulin Aspart (Novolog) 0 unit SC [facility]; Protocol Last Admin: 11/25/18 21:25 Dose: Not Given Insulin Glargine (Lantus) 5 unit SC [facility] Last Admin: 11/25/18 21:46 Dose: 5 units Losartan Potassium (Cozaar) 25 mg PO DAILY [facility] Last Admin: 11/25/18 09:38 Dose: 25 mg Rosuvastatin Calcium (Crestor) 5 mg PO HS [facility] Last Admin: 11/25/18 21:47 Dose: 5 mg - Labs Labs: 11/25/18 11:35 11/25/18 11:35 PT 11.8 SECONDS (9.7-12.2) 11/20/18 17:23 INR 1.1 11/20/18 17:23 APTT 32 SECONDS (21-34) 11/20/18 17:23
[2018-11-26 07:42] LABS: ALB/GLOB RATIO 1.5 (1.0-2.1); ALBUMIN 3.4 g/dL (3.5-5.0); CALCIUM 8.6 mg/dl (8.6-10.4)
[2018-11-26] MEDS: (Novolog) Insulin Aspart, Recombinant 100 u/ml 10 ml vial SC SCH ×2 (08:08→12:03)
[2018-11-26 08:12] VITALS: BP 156/63; PULSE 62; TEMP 97.6
[2018-11-26 08:20] LABS: BASO % 0.6 % (0.0-2.0); EOS # 0.3 K/uL (0.0-0.7); EOS % 4.5 % (0.0-4.0); HEMOGLOBIN 10.4 g/dL (11.0-16.0); LYMPH # 2.2 K/uL (1.0-4.3); LYMPH % 30.4 % (20.0-40.0); MEAN CELL VOLUME 90.6 fL (81.0-99.0); MEAN CORPUSCULAR HEMOGLOBIN 30.2 pg (27.0-31.0); MEAN CORPUSCULAR HGB CONC 33.3 g/dL (33.0-37.0); MEAN PLATELET VOLUME 9.5 fL (7.2-11.7); MONO # 0.8 K/uL (0.0-0.8); MONO % 11.3 % (0.0-10.0); NEUT # 3.8 K/uL (1.8-7.0); NEUT % 53.2 % (50.0-75.0); NRBC % 0.1 % (0.0-2.0); RBC 3.44 Mil/uL (3.80-5.20); RED CELL DISTRIBUTION WIDTH 14.5 % (11.5-14.5); WHITE BLOOD COUNT 7.2 K/uL (4.8-10.8)
--- NOTE | 2018-11-26 14:30 | CP.PCM.DIS ---
<AvelMelitas M - Last Filed: 11/26/18 14:56> Provider - Provider Date of Admission: 11/23/18 11:02 Attending physician: Dori Huston MD Primary care physician: Dr. Gomez Consults: 11/20/18 18:40 Cardiology Consult Stat Comment: Consulting Provider: Andrew Hernandez Consulting Physician: Andrew Hernandez Reason for Consult: chest pain Time Spent in preparation of Discharge (in minutes): 40 Diagnosis - Discharge Diagnosis (1) Chest discomfort Status: Acute Comment: Nuclear stress negative. Non obstructive coronaries. Unlikley cardiac origin. (2) Acute renal insufficiency Status: Acute Comment: Cr elevated 1.3, IV hydration to normalization. (3) Failure to thrive in adult Status: Acute Comment: Encouraged increase caloric intake. Hospital Course - Lab Results Lab Results: Most Recent Lab Values WBC 7.2 K/uL (4.8-10.8) 11/26/18 07:12 RBC 3.44 Mil/uL (3.80-5.20) L 11/26/18 07:12 Hgb 10.4 g/dL (11.0-16.0) L 11/26/18 07:12 Hct 31.2 % (34.0-47.0) L 11/26/18 07:12 MCV 90.6 fL (81.0-99.0) 11/26/18 07:12 MCH 30.2 pg (27.0-31.0) 11/26/18 07:12 MCHC 33.3 g/dL (33.0-37.0) 11/26/18 07:12 RDW 14.5 % (11.5-14.5) 11/26/18 07:12 Plt Count 193 K/uL (130-400) 11/26/18 07:12 MPV 9.5 fL (7.2-11.7) 11/26/18 07:12 Neut % (Auto) 53.2 % (50.0-75.0) 11/26/18 07:12 Lymph % (Auto) 30.4 % (20.0-40.0) 11/26/18 07:12 Crockett % (Auto) 11.3 % (0.0-10.0) H 11/26/18 07:12 Eos % (Auto) 4.5 % (0.0-4.0) H 11/26/18 07:12 Baso % (Auto) 0.6 % (0.0-2.0) 11/26/18 07:12 Neut # (Auto) 3.8 K/uL (1.8-7.0) 11/26/18 07:12 Lymph # (Auto) 2.2 K/uL (1.0-4.3) 11/26/18 07:12 Crockett # (Auto) 0.8 K/uL (0.0-0.8) 11/26/18 07:12 Eos # (Auto) 0.3 K/uL (0.0-0.7) 11/26/18 07:12 Baso # (Auto) 0.0 K/uL (0.0-0.2) 11/26/18 07:12 PT 11.8 SECONDS (9.7-12.2) 11/20/18 17:23 INR 1.1 11/20/18 17:23 APTT 32 SECONDS (21-34) 11/20/18 17:23 Sodium 135 mmol/L (132-148) 11/26/18 07:12 Potassium 4.8 mmol/L (3.6-5.2) 11/26/18 07:12 Chloride 106 mmol/L (98-107) 11/26/18 07:12 Carbon Dioxide 26 mmol/L (22-30) 11/26/18 07:12 Anion Gap 9 (10-20) L 11/26/18 07:12 BUN 39 mg/dL (7-17) H 11/26/18 07:12 Creatinine 1.2 mg/dL (0.7-1.2) 11/26/18 07:12 Est GFR ( Amer) 51 11/26/18 07:12 Est GFR (Non-Af Amer) 42 11/26/18 07:12 POC Glucose (mg/dL) 374 mg/dL (65-110) H 11/26/18 11:08 Random Glucose 177 mg/dL (65-105) H D 11/26/18 07:12 Hemoglobin A1c 7.7 % (4.2-6.5) H 11/21/18 08:23 Calcium 8.6 mg/dl (8.6-10.4) 11/26/18 07:12 Phosphorus 4.0 mg/dL (2.5-4.5) 11/26/18 07:12 Magnesium 1.9 mg/dL (1.6-2.3) 11/26/18 07:12 Total Bilirubin 0.2 mg/dL (0.2-1.3) 11/26/18 07:12 AST 30 U/L (14-36) 11/26/18 07:12 ALT 14 U/L (9-52) 11/26/18 07:12 Alkaline Phosphatase 68 U/L (38-126) 11/26/18 07:12 Total Creatine Kinase 242 U/L (30-135) H 11/21/18 08:23 CK-MB (Mass) 1.94 ng/mL (0.0-3.38) 11/21/18 08:23 Troponin I < 0.0120 ng/mL (0.00-0.120) 11/21/18 08:23 NT-Pro-B Natriuret Pep 2180 pg/mL (0-900) H 11/21/18 08:23 Total Protein 5.8 g/dL (6.3-8.3) L 11/26/18 07:12 Albumin 3.4 g/dL (3.5-5.0) L 11/26/18 07:12 Globulin 2.3 gm/dL (2.2-3.9) 11/26/18 07:12 Albumin/Globulin Ratio 1.5 (1.0-2.1) 11/26/18 07:12 - Hospital Course Hospital Course: HPI: Ms. Curiel is a 87 year old female with PMHx of CHF, CAD, DM2, HTN, HLD, asthma and arthritis sent in by her cutter and presser, Dr. Hernandez, after a routine appointment for worsening angina requesting inpatient stress test. For the last 2-3 weeks, her angina has begun to occur throughout the day for minutes at a time, even at rest. She will sit down when the chest pain starts and takes deep breaths to ease the pain away. It takes seconds to subside but she feels soreness for a few minutes before it entirely subsides. She has concurrent SOB without coughing or wheezing. History is limited 2/2 patient's forgetfulness and distraction of her daughter also being evaluated in the ED. During stay, patient had nuclear stress and cardiac cath that revealed clean coronaries. Pts had RODGER that was treated with IV hydration. Patient encouraged to increase caloric intake. Pt chronic medical conditions managed. Above is only a summary of patients stay. See EMR for full details. See discharge instructions provided to the patient upon discharge. Patient is stable for discharge per Dr. Huston following receiving dose of lactulose. Patient will be dischraged with long-term evaluation with [facility]. Please follow up with your primary doctor, Dr. Gomez within 3 days. Please resume all home medications as you were taking. If any of the symptoms return/worsen, please return to your nearest medical facility. Discharge Exam - Head Exam Head Exam: NORMAL INSPECTION - Eye Exam Eye Exam: EOMI, Normal appearance - ENT Exam ENT Exam: Mucous Membranes Moist - Respiratory Exam Respiratory Exam: Clear to PA & Lateral, UNREMARKABLE. absent: Rales, Rhonchi, Wheezes - Cardiovascular Exam Cardiovascular Exam: +S1, +S2 - GI/Abdominal Exam GI & Abdominal Exam: Normal Bowel Sounds, Soft. absent: Distended, Firm - Extremities Exam Extremities exam: full ROM, normal inspection Additional comments: no pedal edema, no calf tenderness - Back Exam Back exam: absent: CVA tenderness (L), CVA tenderness (R) - Neurological Exam Neurological exam: Alert, Oriented x3 - Psychiatric Exam Psychiatric exam: Normal Affect, Normal Mood - Skin Skin Exam: Dry, Intact, Normal Color, Warm Discharge Plan - Follow Up Plan Condition: FAIR Disposition: HOME/ ROUTINE Instructions: Heart Healthy Diet, Heart Failure, Adult (DC), High Blood Pressure (DC), Cardiac Catheterization (DC), Chest Pain (DC), Acute Kidney Injury (DC) Additional Instructions: Patient is stable for discharge per Dr. Huston following receiving dose of lactulose. Patient will be dischraged with long-term evaluation with [facility]. Please follow up with your primary doctor, Dr. Gomez within 3 days. Please resume all home medications as you were taking. If any of the symptoms return/worsen, please return to your nearest medical facility. Referrals: Andrew Hernandez MD [Staff Provider] - Chuck Gomez MD [Staff Provider] - <Dori Huston - Last Filed: 11/27/18 08:45> Provider - Provider Date of Admission: 11/23/18 11:02 Attending physician: Dori Huston MD Consults: 11/20/18 18:40 Cardiology Consult Stat Comment: Consulting Provider: Andrew Hernandez Consulting Physician: Andrew Hernandez Reason for Consult: chest pain Hospital Course - Lab Results Lab Results: Most Recent Lab Values WBC 7.2 K/uL (4.8-10.8) 11/26/18 07:12 RBC 3.44 Mil/uL (3.80-5.20) L 11/26/18 07:12 Hgb 10.4 g/dL (11.0-16.0) L 11/26/18 07:12 Hct 31.2 % (34.0-47.0) L 11/26/18 07:12 MCV 90.6 fL (81.0-99.0) 11/26/18 07:12 MCH 30.2 pg (27.0-31.0) 11/26/18 07:12 MCHC 33.3 g/dL (33.0-37.0) 11/26/18 07:12 RDW 14.5 % (11.5-14.5) 11/26/18 07:12 Plt Count 193 K/uL (130-400) 11/26/18 07:12 MPV 9.5 fL (7.2-11.7) 11/26/18 07:12 Neut % (Auto) 53.2 % (50.0-75.0) 11/26/18 07:12 Lymph % (Auto) 30.4 % (20.0-40.0) 11/26/18 07:12 Crockett % (Auto) 11.3 % (0.0-10.0) H 11/26/18 07:12 Eos % (Auto) 4.5 % (0.0-4.0) H 11/26/18 07:12 Baso % (Auto) 0.6 % (0.0-2.0) 11/26/18 07:12 Neut # (Auto) 3.8 K/uL (1.8-7.0) 11/26/18 07:12 Lymph # (Auto) 2.2 K/uL (1.0-4.3) 11/26/18 07:12 Crockett # (Auto) 0.8 K/uL (0.0-0.8) 11/26/18 07:12 Eos # (Auto) 0.3 K/uL (0.0-0.7) 11/26/18 07:12 Baso # (Auto) 0.0 K/uL (0.0-0.2) 11/26/18 07:12 PT 11.8 SECONDS (9.7-12.2) 11/20/18 17:23 INR 1.1 11/20/18 17:23 APTT 32 SECONDS (21-34) 11/20/18 17:23 Sodium 135 mmol/L (132-148) 11/26/18 07:12 Potassium 4.8 mmol/L (3.6-5.2) 11/26/18 07:12 Chloride 106 mmol/L (98-107) 11/26/18 07:12 Carbon Dioxide 26 mmol/L (22-30) 11/26/18 07:12 Anion Gap 9 (10-20) L 11/26/18 07:12 BUN 39 mg/dL (7-17) H 11/26/18 07:12 Creatinine 1.2 mg/dL (0.7-1.2) 11/26/18 07:12 Est GFR ( Amer) 51 11/26/18 07:12 Est GFR (Non-Af Amer) 42 11/26/18 07:12 POC Glucose (mg/dL) 374 mg/dL (65-110) H 11/26/18 11:08 Random Glucose 177 mg/dL (65-105) H D 11/26/18 07:12 Hemoglobin A1c 7.7 % (4.2-6.5) H 11/21/18 08:23 Calcium 8.6 mg/dl (8.6-10.4) 11/26/18 07:12 Phosphorus 4.0 mg/dL (2.5-4.5) 11/26/18 07:12 Magnesium 1.9 mg/dL (1.6-2.3) 11/26/18 07:12 Total Bilirubin 0.2 mg/dL (0.2-1.3) 11/26/18 07:12 AST 30 U/L (14-36) 11/26/18 07:12 ALT 14 U/L (9-52) 11/26/18 07:12 Alkaline Phosphatase 68 U/L (38-126) 11/26/18 07:12 Total Creatine Kinase 242 U/L (30-135) H 11/21/18 08:23 CK-MB (Mass) 1.94 ng/mL (0.0-3.38) 11/21/18 08:23 Troponin I < 0.0120 ng/mL (0.00-0.120) 11/21/18 08:23 NT-Pro-B Natriuret Pep 2180 pg/mL (0-900) H 11/21/18 08:23 Total Protein 5.8 g/dL (6.3-8.3) L 11/26/18 07:12 Albumin 3.4 g/dL (3.5-5.0) L 11/26/18 07:12 Globulin 2.3 gm/dL (2.2-3.9) 11/26/18 07:12 Albumin/Globulin Ratio 1.5 (1.0-2.1) 11/26/18 07:12 Attending/Attestation - Attestation I have personally seen and examined this patient.: Yes I have fully participated in the care of the patient.: Yes I have reviewed all pertinent clinical information, including history, physical exam and plan: Yes Notes (Text): Seen and examined with the resident. patient has no complain,alert and oriented x3. Discussed wbout discharge plan. Encouraged to take enough fluids at home.Conitnue home meds and follow with her primary care physician
== END 2018-11-26 16:03 | disposition home or self-care (01) | DRG 287 ==
LOC: C.ER 16:42 → C.9E 18:38 → C.6T 19:33 → OBSVTOIN 11-23 11:02
PROVIDERS: ADMIT Hospitalist; ATTEND Internal Medicine
PROC: 4A023N7 Measurement of Cardiac Sampling and Pressure, Left Heart, Percutaneous Approach (ICD-10-PCS; principal; 2018-11-22)
PROC: B2111ZZ Fluoroscopy of Multiple Coronary Arteries using Low Osmolar Contrast (ICD-10-PCS; 2018-11-22)
DX: I25.110 Atherosclerotic heart disease of native coronary artery with unstable angina pectoris (principal); N17.9 Acute kidney failure, unspecified; E78.5 Hyperlipidemia, unspecified; F41.9 Anxiety disorder, unspecified; H40.9 Unspecified glaucoma; E11.9 Type 2 diabetes mellitus without complications; J44.9 Chronic obstructive pulmonary disease, unspecified; R62.7 Adult failure to thrive; Z87.891 Personal history of nicotine dependence; Z95.5 Presence of coronary angioplasty implant and graft; D64.9 Anemia, unspecified; I11.0 Hypertensive heart disease with heart failure; I50.9 Heart failure, unspecified